=== PATIENT | female | born 1980 | race Caucasian/White ===

== ENCOUNTER 2020-01-13 09:10 | Emergency (ER) | payer MEDICAID, SELFPAY ==
[2020-01-13 09:11] VITALS: BP 124/61; PULSE 89; RESP 17; TEMP 36.3; O2SAT 98; BMI 26.1
--- NOTE | 2020-01-13 09:21 | RAD_ITS ---
STUDY: X-RAY CHEST REASON FOR EXAM: Female, 39 years old. COVID SX, COUGH, FEVER, LOSS OF TASTE AND SMELL TECHNIQUE: Single AP portable view of the chest. COMPARISON: None. FINDINGS: The lungs are clear and expanded. There is no demonstrated pleural abnormality. Normal size heart. Normal mediastinum and xenia. Normal visualized pulmonary arteries. Normal visualized aortic arch and descending thoracic aorta. Normal visualized thoracic spine. Normal visualized ribs, clavicles, and shoulders. There is no demonstrated abnormality of the visualized soft tissue structures of the upper abdomen. RAD/Chest 1 View (Portable) IMPRESSION: Normal x-ray examination of the chest. Electronically Signed: Todd Hanna MD at 9:55 EDT Tel , Service support ,
--- NOTE | 2020-01-13 10:09 | ED.VIS.GEN ---
History of Present Illness Chief Complaint: Cough Narrative: 39-year-old female presents with concern for cough, myalgias. States is been present for the past 1 week. Tested negative for coronavirus 2 days ago. Concerned because she continues to cough and has a change in her smell and taste. Patient is a current smoker. Denies any chest pain or shortness of breath. Past Medical History - Allergies and Home Meds Allergies/Adverse Reactions: Allergies No Known Allergies Allergy (Verified 01/13/20 09:11) Primary Care Physician: Bernie Harrell DO [Primary Care Provider] - Past Medical History: None Surgical History: no surgical history Lives: With Family Smoking Status: Current every day smoker Alcohol: None Drugs: None Review of Systems General: Reports: Malaise. Denies: Chills, Fever, Sweats Eyes: Denies: Visual changes - bilaterally, Diplopia ENT: Reports: Sore throat. Denies: Rhinorrhea Cardiovascular: Denies: Chest pain, Palpitations Respiratory: Reports: Cough. Denies: Dyspnea, Dyspnea on exertion Gastrointestinal: Denies: Abdominal pain, Nausea, Vomiting, Diarrhea, Melena, Hematochezia Genitourinary: Denies: Dysuria, Hematuria, Frequency Musculoskeletal: Denies: Back pain, Extremity Pain Skin: Denies: Rash, Wounds Neurological: Denies: Headache, Weakness, Numbness Physical Exam Vital Signs/Narrative: Vital Signs Temp Pulse Resp BP Pulse Ox 01/13/20 09:11 97.4 F L 89 17 124/61 H 98 Inital Vital Signs reviewed: Yes General: Well nourished, Well developed, No Acute Distress Head: Normocephalic, Atraumatic Eyes: Perrl, EOMI ENT: Moist mucous membranes, No rhinorrhea Neck: Supple, Nontender Cardiovascular: Regular rate, Regular rhythm, No murmurs Respiratory: No distress, CTA bilaterally, Chest nontender Abdomen: Soft, Nontender, Nondistended, Normal bowel sounds Back: Nontender, Normal Inspection Extremities: Nontender, No edema Skin: Normal color, No rash Neurological: Alert, Oriented x3, Cranial nerves II-XII grossly intact, Normal Strength, Normal Sensation Psychological: Normal affect, Normal Mood Diagnostic/Tx/Re-eval Chest X-Ray - ED: 1 View, Normal Clinical Impression(s) from Imaging Studies Chest X-Ray 01/13/20 09:21 IMPRESSION: Normal x-ray examination of the chest. Electronically Signed: Todd Hanna MD at 9:55 EDT Tel , Service support , - Medical Decision Making Patient appears well and nontoxic. Vital signs within normal limits. Lungs clear. Chest x-ray negative. Patient already has albuterol inhaler at home and will be placed on prednisone given she likely has undiagnosed COPD and had some slight wheezing. Coronavirus will be retested. Patient has to self isolate at home. Asked to return for shortness of breath. Patient agreeable and discharged home in stable condition. Impression: 1. Bronchitis 2. Tobacco abuse 3. Possible COVID-19 pneumonitis ED Disposition - Plan for ED Patient: Disposition: Home or Assisted Living Instructions: ED REACTIVE AIRWAY DISEASE Adult Prescriptions: Prednisone [Deltasone] 40 mg PO DAILY #10 tab Prescription Printed Referrals: Bernie Harrell DO [Primary Care Provider] -
== END 2020-01-13 10:51 | disposition home or self-care (01) ==
LOC: ED 10:26
PROVIDERS: Emergency Provider Emergency Medicine
DX: J40 Bronchitis, not specified as acute or chronic (principal); F17.200 Nicotine dependence, unspecified, uncomplicated
CPT/HCPCS: 71045; 87635; 94799; 99282; U0003

== ENCOUNTER 2021-05-18 20:09 | Emergency (ER) | payer MEDICAID, SELFPAY ==
[2021-05-18 20:11] VITALS: BP 104/47; PULSE 88; RESP 16; TEMP 36.4; BMI 26.7
[2021-05-18 20:15] VITALS: BP 110/63; PULSE 88; RESP 18; TEMP 36.4; O2SAT 98
--- NOTE | 2021-05-18 20:24 | CT_ITS ---
EXAM: CT HEAD WITHOUT INTRAVENOUS CONTRAST CLINICAL INDICATION: trauma TECHNIQUE: Multiple axial images were obtained of the head without intravenous contrast. CTDIvol = ( 44.99 ) mGy, DLP = ( 779.24 ) mGycm This CT exam was performed using one or more of the following dose reduction techniques: automated exposure control, adjustment of the mA and/or kV according to patient size, and/or use of iterative reconstruction technique. This report was created using [employer] report generation technology. COMPARISON: None. FINDINGS: BRAIN AND EXTRA-AXIAL SPACES: Unremarkable. No intra- or extra-axial hemorrhage. No evidence of acute infarct. No intracranial mass or mass effect. There is preservation of the webster/white matter interface. Posterior fossa structures are unremarkable. Ventricles are appropriate for age. No hydrocephalus. Basal cisterns are patent. BONES/JOINTS: Unremarkable. No discrete lytic or blastic abnormalities. SINUSES: Mucous retention cyst involving the right maxillary sinus. MASTOID AIR CELLS: Unremarkable. Clear. ORBITS: Visualized globes, extraocular muscles, optic nerves and retrobulbar fat appear unremarkable. CT/Brain/Head without Contrast IMPRESSION: No acute findings in the head/brain. Electronically Signed: Cleve Clayton MD at 21:23 EST Tel , Service support ,
--- NOTE | 2021-05-18 20:24 | CT_ITS ---
EXAM: CT CERVICAL SPINE WITHOUT INTRAVENOUS CONTRAST CLINICAL INDICATION: trauma TECHNIQUE: Helically acquired images were obtained of the cervical spine without intravenous contrast. 2D reformatted images were reviewed. CTDIvol = ( 14.98 ) mGy, DLP = ( 395.59 ) mGycm This CT exam was performed using one or more of the following dose reduction techniques: automated exposure control, adjustment of the mA and/or kV according to patient size, and/or use of iterative reconstruction technique. This report was created using [employer] technology. COMPARISON: None. FINDINGS: VERTEBRAE: Unremarkable. No fracture. No traumatic subluxation. No discrete lytic or blastic abnormality. Normal alignment. Normal craniocervical junction and cervicothoracic junction. DISCS/SPINAL CANAL/NEURAL FORAMINA: Multilevel degenerative disc disease changes. No critical stenosis. SOFT TISSUES: Unremarkable. No prevertebral soft tissue swelling. LYMPH NODES: Unremarkable. No cervical adenopathy. LUNG APICES: Unremarkable as visualized. Clear. CT/Spine Cervical without Contras IMPRESSION: No acute or healing fracture or malalignment. Electronically Signed: Cleve Clayton MD at 21:25 EST Tel , Service support ,
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
[2021-05-18 21:59] VITALS: RESP 16
== END 2021-05-18 22:00 | disposition home or self-care (01) ==
PROVIDERS: Emergency Provider Emergency Medicine; Visit Provider Emergency Medicine
DX: S06.0X0A Concussion without loss of consciousness, initial encounter (principal); S16.1XXA Strain of muscle, fascia and tendon at neck level, initial encounter; F17.210 Nicotine dependence, cigarettes, uncomplicated; V49.9XXA Car occupant (driver) (passenger) injured in unspecified traffic accident, initial encounter
CPT/HCPCS: 70450; 72125; 99284

== ENCOUNTER 2022-05-02 14:57 | Emergency (ER) | payer MEDICAID, SELFPAY ==
[2022-05-02 14:58] VITALS: BP 109/67; PULSE 80; RESP 15; TEMP 36.4; O2SAT 98; BMI 25.1
--- NOTE | 2022-05-02 16:16 | EX.ED.UPPERE ---
HPI <SELVIN Palomo - Last Filed: 05/02/22 16:53> History of Present Illness Chief Complaint: Laceration Narrative Narrative: 41-year-old [id number] female presents with a left middle finger laceration. At work today she was using a outside laborer when it cut the tip of her finger. Bleeding is controlled with a bandage. No weakness numbness or tingling. Last tetanus unknown. PFSH <SELVIN Palomo - Last Filed: 05/02/22 16:53> [facility] Medical History Anxiety Depression Home Medications amoxicillin 500 mg capsule 500 mg PO Q8H 06/18/15 [History Last Taken Unknown] gabapentin 300 mg capsule 300 mg PO QHS 06/18/15 [History Last Taken Unknown] hydrocodone-acetaminophen 5-325mg 5mg-325mg 1 - 2 tab PO Q4H PRN PRN Pain ##12 06/18/15 [Rx Last Taken Unknown] meloxicam 15 mg tablet 15 mg PO DAILY 06/18/15 [History Last Taken Unknown] naproxen 500 mg tablet 500 mg PO BID PRN ##20 06/18/15 [Rx Last Taken Unknown] nitrofurantoin monohydrate/macrocrystals 100 mg capsule 100 mg PO Q12 ##14 06/18/15 [Rx Last Taken Unknown] prednisone 20 mg tablet 40 mg PO DAILY #10 tabs 01/13/20 [Rx Last Taken Unknown] Allergy/AdvReac Type Severity Reaction Status Date / Time No Known Allergies Allergy Verified 05/02/22 14:57 Social History (Updated 05/18/21 @ 20:[address] Krunal Dominguez, ) Smoking Status: Current every day smoker tobacco type: cigarettes substance use type: does not use ROS <SELVIN Palomo - Last Filed: 05/02/22 16:53> ROS ED ROS Narrative Constitutional: Negative for fever, chills, malaise. Eyes: Negative for visual change. ENT: Negative for rhinorrhea. CVS: Negative for palpitations, chest pain. Respiratory: Negative for shortness of breath, cough. GI: Negative for abdominal pain, nausea, vomiting. : Negative for dysuria, hematuria or frequency. Neuro: Negative for motor/sensory dysfunction. Skin: Positive for wound. Musc: Positive for finger pain, trauma. Heme: Negative for easy bruising, bleeding, lymphadenopathy. EXAM <SELVIN Palomo - Last Filed: 05/02/22 16:53> Physical Exam Narrative Exam Narrative: CONST: Patient sitting in no acute distress. EYES: Normal inspection. NECK: Normal inspection. RESP: No respiratory distress, CTAB. CVS: Regular rate and rhythm, no murmur, no gallop. SKIN: 2 cm skin avulsion of tip of left middle finger along the medial side to level of subcutaneous tissue, no tendon or bone involvement. EXTREMITIES: Normal appearance, full ROM left hand and digits, normal nail with no laceration or subungual hematoma, normal motor and sensory function in median ulnar and radial distributions. 2+ radial pulse and brisk cap refill in all digits. NEURO: Oriented x4. PSYCH: Normal affect. Const Vital Signs: 05/02/22 14:58 Temperature 97.6 F L Temperature Source Temporal Pulse Rate 80 Respiratory Rate 15 Blood Pressure 109/67 Blood Pressure Mean 81 Pulse Ox 98 Oxygen Delivery Method Room Air MDM <SELVIN Palomo - Last Filed: 05/02/22 16:53> [facility] Narrative Medical decision making narrative: Patient has a distal left middle finger skin avulsion. It is to the level of the subcutaneous tissue. With no tendon or bone involvement there is no indication for x-rays. No nail laceration or subungual hematoma. She has full range of motion and is neurovascularly intact. Wound was thoroughly cleansed with sterile saline and Surgicel foam and a compressive dressing was applied for hemostasis. Tetanus will be updated. Patient was counseled on wound care instructions and will follow up with Worker's Comp. She was discharged in stable condition. <Francisco Javier Mon MD - Last Filed: 05/02/22 19:31> [facility] Narrative Medical decision making narrative: Patient has a distal left middle finger skin avulsion. It is to the level of the subcutaneous tissue. With no tendon or bone involvement there is no indication for x-rays. No nail laceration or subungual hematoma. She has full range of motion and is neurovascularly intact. Wound was thoroughly cleansed with sterile saline and Surgicel foam and a compressive dressing was applied for hemostasis. Tetanus will be updated. Patient was counseled on wound care instructions and will follow up with Worker's Comp. She was discharged in stable condition. I have personally performed a face to face assessment of the patient and have reviewed the MAC Note. I performed a substantive portion of the visit including all aspects of the following. My alford findings include: History is laceration to middle finger of left hand, cut in outside laborer Exam is GCS 15. ABCs intact. Large skin avulsion to finger pad of left third digit. Medical Decision Making not amenable to suture repair. Gelfoam. Heal by secondary intent. Follow-up with [facility]. Other additions or changes: [None] Discharge Plan Triage Chief Complaint: Laceration ED Midlevel Provider: Adriana Kauffman ED Provider: Francisco Javier Mon Dx/Rx/DC Orders Clinical Impression: Avulsion of skin of finger Instructions: ED Skin Avulsion Prescriptions: No Action amoxicillin 500 MG capsule 500 mg PO Q8H meloxicam 15 MG tablet 15 mg PO DAILY gabapentin 300 MG capsule 300 mg PO QHS naproxen 500 MG tablet 500 mg PO BID PRN Qty: 20 0RF nitrofurantoin monohyd/m-cryst 100 MG capsule 100 mg PO Q12 Qty: 14 0RF hydrocodone-acetaminophen 1 TABLET tablet 1 - 2 tab PO Q4H PRN PRN (Reason: Pain) Qty: 12 0RF prednisone 20 MG tablet 40 mg PO DAILY Qty: 10 0RF Rx Instructions: With food Primary Care Provider: Bernie Harrell Referrals: Bernie Harrell, [Primary Care Provider] - [facility] [Non-Staff] - Activity Restrictions/Additional Instructions: Once the foam falls off on its own you can cover the healing area with Vaseline and a bandage. Please follow-up with occupational health. If bleeding reoccurs hold direct pressure for 15 minutes without letting go. Disposition Disposition: Home, Self Care Discharge Date/Time: 05/02/22 17:03
[2022-05-02] MEDS: Gelatin Sponge Absorbable 50cm (1) 1 EACH TOPICAL (16:53)
== END 2022-05-02 17:03 | disposition home or self-care (01) ==
LOC: ED 16:26
PROVIDERS: Emergency Provider Emergency Medicine; Visit Provider Emergency Medicine
DX: S61.213A Laceration without foreign body of left middle finger without damage to nail, initial encounter (principal); F17.210 Nicotine dependence, cigarettes, uncomplicated; X58.XXXA Exposure to other specified factors, initial encounter
CPT/HCPCS: 99282

== ENCOUNTER 2022-09-29 09:22 | Emergency (ER) | payer MEDICAID, SELFPAY ==
[2022-09-29 09:23] VITALS: BP 141/73; PULSE 95; RESP 18; TEMP 36.4; O2SAT 100; BMI 27.0
--- NOTE | 2022-09-29 09:39 | ED.VIS.FEGU ---
HPI HPI - Female History of Present Illness Chief Complaint: Vag Bleeding Informant: patient Narrative Narrative: 42-year-old female states for the past 5 days she has had vaginal bleeding with intercourse multiple times. No bleeding without intercourse. Her last normal menstrual cycle was around 2 weeks ago, she is usually irregular but has a cycle every month and this is unusual and has never happened. She tried to get into [employer] at her practice but they have no openings, she tried to switch to a new practice here at [facility] but no openings, so she came here. She denies any dyspareunia or associated abdominal or back pain. She does state however she has some dysuria whenever she urinates but no other urinary symptoms. No fevers or chills. PFSH [facility] Medical History Anxiety Depression Home Medications gabapentin 300 mg capsule 300 mg PO QHS 06/18/15 [History Last Taken Unknown] buspirone 10 mg tablet 10 mg PO BID 09/16/22 [History Last Taken Unknown] fluoxetine 40 mg capsule (Prozac) 40 mg PO QPM 09/16/22 [History Last Taken Unknown] nitrofurantoin monohydrate/macrocrystals 100 mg capsule 100 mg PO Q12 #10 CAPSULES 09/29/22 [Rx Last Taken Unknown] phenazopyridine 200 mg tablet (Pyridium) 200 mg PO BID PRN PRN Pain #10 tabs 09/29/22 [Rx Last Taken Unknown] Allergy/AdvReac Type Severity Reaction Status Date / Time No Known Allergies Allergy Verified 09/29/22 09:23 Family History Other Liver cancer Throat cancer Surgical History History of salpingectomy Social History Smoking Status: Current every day smoker tobacco type: cigarettes alcohol intake: never substance use type: does not use ROS ROS ED Constitutional Constitutional ED: Denies chills or fever(s) Eyes Eyes: Denies change in vision or diplopia ENT ENT ED: Reports nasal congestion and rhinorrhea; Denies sore throat Cardiovascular Cardiovascular: Denies chest pain or palpitations Respiratory/Chest Respiratory/Chest: Reports chest congestion and cough; Denies dyspnea or sputum Gastrointestinal Gastrointestinal: Denies abdominal pain, diarrhea, nausea or vomiting Genitourinary Genitourinary ED: Reports as per HPI and dysuria; Denies hematuria Musculoskeletal Musculoskeletal: Denies back pain or neck pain Integumentary Denies abscess or rash Neurologic Neurologic: Denies headache(s), paresthesias or weakness Psychiatric Psychiatric: Denies anxiety or suicidal thoughts EXAM Physical Exam Const Vital Signs: 09/29/22 09:23 Temperature 97.6 F L Temperature Source Temporal Pulse Rate 95 Respiratory Rate 18 Blood Pressure 141/73 H Blood Pressure Mean 95 Pulse Ox 100 Oxygen Delivery Method Room Air Positive well nourished and well developed General Appearance ED: well developed and NAD HEENT Reports moist mucous membranes normocephalic and atraumatic Eyes PERRL and EOMs intact bilaterally Neck full ROM and supple Resp normal respiratory effort and clear to auscultation bilaterally Cardio regular rate, regular rhythm and no murmurs GI non-distended GI Narrative: Very mild suprapubic tenderness no guarding or rebound otherwise benign abdomen Auscultation: normoactive bowel sounds Palpation: soft Narrative: External exam, performed with nurse graphic pre press trades worker: Normal, no lesions, no blood. Speculum exam: No lacerations or lesions, masses, no blood. However when I had the cervix within open speculum in view, a very small amount of blood suddenly emanated from the cervical os, which is otherwise normal appearing. Back/Spine no CVA tenderness General Back: other FROM Extremity normal to inspection General Extremety ED: Negative for edema, pulses abnormal or tenderness General Extremity: Negative for edema or pulses abnormal Neuro oriented x3, CN's II-XII intact bilaterally and no sensory deficits noted Sensorium / Orientation: awake and alert Motor Exam: strength 5/5 throughout Skin no rashes or lesions noted and no wounds MDM MDM MDM Narrative Medical decision making narrative: Given the pelvic exam, initially obtained urinalysis showed negative test, patient did have a bilateral tubal ligation but this helps to rule out an ectopic, so she was sent for transvaginal ultrasound. I reviewed those images and the results, basically unremarkable just showing thickened endometrium which is very nonspecific. No ovarian abnormalities. The urinalysis does show signs of infection. Her dysuria I think is separate from the dysfunctional uterine bleeding. I recommend antibiotics, Pyridium for the symptoms of dysuria, and follow-up with her [employer]ORATORY TECHNICIAN. She is comfortable with that plan. Lab Data Attestation: I reviewed the patient's lab results. Labs: Laboratory Results - last 24 hr 09/29/22 10:12 Urine Color Yellow Urine Clarity Sl. Cloudy Urine pH 5.0 Ur Specific Jal 1.025 Urine Protein 30 H Urine Glucose (UA) Normal Urine Ketones 5 H Urine Occult Blood 250 H Urine Nitrite Negative Urine Bilirubin Negative Urine Urobilinogen Normal Ur Leukocyte Esterase 500 H Urine RBC 25-50 SEEN Urine WBC 25-50 SEEN Ur Squamous Epith Cells 5-10 SEEN Urine Bacteria 1+ Urine Mucus 1+ Urine Test Negative Radiography Diagnostic Testing: Clinical Impression(s) from Imaging Studies Transvaginal US 09/29/22 10:38 IMPRESSION: Thickened endometrium. Abdominal follicle in the left ovary. Electronically Signed: Noe Jean MD at 11:57 EDT , My interpretation of the US agrees with that of the radiologist. Discharge Plan Triage Chief Complaint: Vag Bleeding ED Provider: Cl Tello Dx/Rx/DC Orders Clinical Impression: Acute cystitis, DUB (dysfunctional uterine bleeding) Instructions: ED Dysfunctional Uterine Bleeding, ED Cystitis Female Adult Prescriptions: New phenazopyridine [Pyridium] 200 mg tablet 200 mg PO BID PRN PRN (Reason: Pain) Qty: 10 0RF nitrofurantoin monohyd/m-cryst [nitrofurantoin monohyd/m-cryst] 100 mg capsule 100 mg PO Q12 Qty: 10 0RF No Action fluoxetine [Prozac] 40 mg capsule 40 mg PO QPM buspirone 10 mg tablet 10 mg PO BID gabapentin 300 MG capsule 300 mg PO QHS Primary Care Provider: Meagan Meléndez [employer] Referrals: Shila Kenney MD [Med Staff - Courtesy Staff] - 3-5 Days if not improving Bernie Harrell DO [Non-Staff] - Disposition Disposition: Home, Self Care
[2022-09-29 10:18] LABS: Color, Urine Yellow (Yellow); Glucose, Dipstick Normal (Normal); Ketone-Dipstick 5 mg/dl (Negative); Leukocyte Esterase-Dipstick 500 /ul (Negative); Nitrite-Dipstick Negative (Negative); Occult Blood-Urine 250 /ul (Negative); Protein-Dipstick 30 mg/dl (Negative); Specific Gravity, Urine 1.025 (1.002-1.030); Urine Bilirubin Dipstick Negative (Negative); Urine Clarity Sl. Cloudy (Clear); Urine Urobilinogen Normal (Normal)
[2022-09-29 10:38] LABS: Bacteria 1+ /hpf (None Seen); Mucous, Urine 1+ /hpf (<or=2+); Red Blood Cells-Urine 25-50 SEEN /hpf (0-5); Squamous Epithelial Cells - UA 5-10 SEEN /hpf (5-10); White Blood Cells 25-50 SEEN /hpf (0-5)
--- NOTE | 2022-09-29 10:38 | US_ITS ---
STUDY: ULTRASOUND OF THE FEMALE PELVIS - COMPLETE REASON FOR EXAM: Female, 42 years old. Dysfunctional uterine bleeding LMP: September 13, 2022. TECHNIQUE: Transvaginal TECHNICAL QUALITY: Adequate. COMPARISON: None. FINDINGS: The uterus is anteverted and is in a midline position. The uterus measures 10.3 cm x 6.5 cm x 4.7 cm. Normal uterine cervix. The endometrium is thickened and measures 17 mm in thickness, and is hyperechoic. There is no demonstrated endometrial mass. There is no demonstrated myometrial mass. I.U.D. - The patient does not have an I.U.D. The right ovary is visualized. The right ovary measures 2.7 cm x 3.7 cm x 2.6 cm. There is no right ovarian cyst or ovarian mass. There is no visualized right adnexal mass or complex lesion. There is normal arterial and normal venous vascularity. The left ovary is visualized. The left ovary measures 2.3 cm x 2.6 x 1.3 cm. Dominant follicle measuring 1.4 cm x 1.4 cm x 1.3 cm. There is no visualized left adnexal mass or complex lesion. There is normal arterial and normal venous vascularity. There is no fluid in the cul-de-sac. US/Transvaginal Non- IMPRESSION: Thickened endometrium. Abdominal follicle in the left ovary. Electronically Signed: Noe Jean MD at 11:57 EDT ,
[2022-09-29 10:39] LABS: Internal QC Validated? YES +Cl - CLEAR BKGD; Pregnancy, Urine Negative Negative
--- NOTE | 2022-09-29 10:57 | CM.ED ---
Social Work Note Referral Source: case find Referral Reason: no PCP SW met with patient and patient's guest and introduced herself and role as [facility] Visor Installer. Patient was lying on hospital bed and agreeable to speak with SW with guest present. SW inquired about patient's insurance and current PCP. Patient verified insurance and reports working with MD Pfeiffer at [facility]. Patient declined a list of local PCPs in network with patient's insurance and accepting new patients. Patient voiced no other needs at this time. SW remains available if needs arise. Breana Morrissey [employer]ARLAND MAKER, JAYLEN
[2022-09-29 13:15] VITALS: RESP 18
== END 2022-09-29 13:16 | disposition home or self-care (01) ==
PROVIDERS: Emergency Provider Emergency Medicine; Visit Provider Emergency Medicine
DX: N30.00 Acute cystitis without hematuria (principal); N93.8 Other specified abnormal uterine and vaginal bleeding; F17.210 Nicotine dependence, cigarettes, uncomplicated
CPT/HCPCS: 76830; 81001; 81025; 99282

== ENCOUNTER → 2022-10-25 | Outpatient (CLI) | payer MEDICAID, SELFPAY ==
[2022-10-25 18:14] LABS: Bacteria 0 SEEN /hpf (None Seen); Mucous, Urine 0 SEEN /hpf (<or=2+)
[2022-10-25 18:40] LABS: Color, Urine Yellow (Yellow); Glucose, Dipstick Normal (Normal); Ketone-Dipstick Negative (Negative); Leukocyte Esterase-Dipstick Negative /ul (Negative); Nitrite-Dipstick Negative (Negative); Occult Blood-Urine 25 /ul (Negative); Protein-Dipstick Negative (Negative); Urine Bilirubin Dipstick Negative (Negative); Urine Clarity Sl. Cloudy (Clear); Urine Urobilinogen Normal (Normal)
[2022-10-25 18:48] LABS: Squamous Epithelial Cells - UA 0-5 SEEN /hpf (5-10); White Blood Cells 0-5 SEEN /hpf (0-5)
[2022-10-25 18:49] LABS: Amorphous Sediment 1+; Red Blood Cells-Urine 0-5 SEEN /hpf (0-5)
== END | disposition home or self-care (01) ==
PROVIDERS: Visit Provider Physician Assistant Surgical
DX: R30.0 Dysuria (principal)
CPT/HCPCS: 81001; 87086; 87088

== ENCOUNTER → 2023-06-14 | Outpatient (CLI) | payer MEDICAID, SELFPAY ==
--- OUTSIDE RECORDS SUMMARY | 2023-06-14 12:21 | XMS RPT_ITS | CCD ---
Author Name Unknown Address [address] [place] [address] Organization [facility] Care Team Providers Care Vocal Teacher Name Role Phone Meagan Meléndez APRN.CNP Primary Care Provider DEBBIE ANDRES, DR WILKINS Primary Care Physician [phone] CHRISTOPHER VARGAS MD Attending Unavailable DEBBIE ANDRES, DR WILKINS Primary Care Unavailable CHRISTOPHER VARGAS MD Attending Unavailable DEBBIE ANDRES, DR WILKINS Primary Care Unavailable CHRISTOPHER VARGAS MD Attending Unavailable DEBBIE ANDRES, DR WILKINS Primary Care Unavailable CHRISTOPHER VARGAS MD Consulting Unavailable MEAGAN MELÉNDEZ Referring Unavailable MEAGAN MELÉNDEZ Primary Care Unavailable MEAGAN MELÉNDEZ Primary Care Unavailable MEAGAN MELÉNDEZ Referring Unavailable MEAGAN MELÉNDEZ Attending Unavailable MEAGAN MELÉNDEZ Attending Unavailable MEAGAN MELÉNDEZ Primary Care Unavailable MEAGAN MELÉNDEZ Referring Unavailable MEAGAN MELÉNDEZ Primary Care Unavailable MEAGAN MELÉNDEZ Attending Unavailable MEAGAN MELÉNDEZ Primary Care Unavailable Medications Current Medications Medication Drug Class(es) Dates Sig (Normalized) Sig (Original) azithromycin 250 mg oral tablet (1 source) Macrolide Antimicrobial Start: 10-18-2022 End: 10-19-2022 azithromycin 250 mg oral tablet Dose : 1,000 mg = 4 tab(s), Oral, qDay, X 1 day(s), # 4 tab(s), 0 Refill(s), 10/19/22 13:43:00 EDT, Pharmacy: [facility] #[id number], 164, cm, 10/14/22 8:53:00 EDT, Height, 72.9 Start Date: 10/18/22 Stop Date: 10/19/22 Status: Ordered busPIRone hydrochloride 10 mg oral tablet (9 sources) Start: 09-13-2022 End: 09-13-2022 take 1 tablet by mouth twice daily busPIRone 10 mg oral tablet take 1 tablet by mouth twice a day Start Date: 10/07/22 Status: Ordered Completed/Discontinued Medications Medication Drug Class(es) Dates Sig (Normalized) Sig (Original) [id number] 200 actuat albuterol 0.09 mg/actuat metered dose inhaler (1 source) beta2-Adrenergic Agonist Start: 03-07-2021 End: 09-13-2022 take 2 puff(s) by inhalation every four hours as needed for wheezing albuterol HFA (PROVENTIL HFA, VENTOLIN HFA) 90 mcg/actuation inhaler Indications: URI with cough and congestion Inhale 2 Puffs as instructed every 4 hours as needed for wheezing/shortness of breath. 1 Each 1 03/07/2021 09/13/2022 Discontinued Problems Active Problems Problem Classification Problem Date Documented Date Episodic/Chronic Anxiety disorders (5 sources) Generalized anxiety disorder; Translations: [Moderate anxiety] Onset: 03-17-2023 06-30-2021 Chronic Diseases of white blood cells (1 source) Leukocytosis; Translations: [Elevated white blood cell count, unspecified] Chronic Endometriosis (3 sources) Endometriosis (clinical) 05-29-2020 Chronic Esophageal disorders (3 sources) Gastroesophageal reflux disease without esophagitis 01-25-2019 Chronic Immunizations and screening for infectious disease (2 sources) Encounter for screening for infections with a predominantly sexual mode of transmission; Translations: [Encounter for screening for infections with a predominantly sexual mode of transmission] Onset: 10-14-2022 Episodic Mood disorders (10 sources) Depressive disorder; Translations: [Other specified depressive episodes] Onset: 12-26-2013 Chronic Other female genital disorders (3 sources) Postcoital bleeding 10-07-2022 Chronic Other nervous system disorders (3 sources) Paresthesia of lower extremity 01-25-2019 Episodic Other non-traumatic joint disorders (1 source) Pain in left knee; Translations: [Acute pain of left knee] Onset: 01-24-2023 Episodic Other skin disorders (1 source) Generalized hyperhidrosis; Translations: [Night sweats] Onset: 03-17-2023 Episodic Other upper respiratory disease (3 sources) Allergic rhinitis 07-19-2019 Chronic Residual codes; unclassified (3 sources) Chronic back pain 12-19-2015 Episodic Sexually transmitted infections (not HIV or hepatitis) (1 source) Chlamydial cervicitis 10-25-2022 Episodic Spondylosis; intervertebral disc disorders; other back problems (5 sources) Degeneration of lumbar intervertebral disc; Translations: [Other intervertebral disc degeneration, lumbar region] Onset: 06-19-2014 06-19-2014 Chronic Spondylosis; intervertebral disc disorders; other back problems (12 sources) Lumbar radiculopathy; Translations: [Radiculopathy, lumbar region] Onset: 06-19-2014 Episodic Past or Other Problems Problem Classification Problem Date Documented Da te Episodic/Chronic Other connective tissue disease (5 sources) Pain in lower limb; Translations: [Pain in leg, unspecified] Onset: 08-31-2011 08-31-2011 Episodic Other screening for suspected conditions (not mental disorders or infectious disease) (7 sources) Patient encounter status; Translations: [Encounter for screening for diabetes mellitus] Onset: 09-13-2022 Episodic Residual codes; unclassified (8 sources) Tobacco user; Translations: [Tobacco use] Onset: 12-26-2013 12-26-2013 Episodic Screening and history of mental health and substance abuse codes (5 sources) Tobacco use and exposure - finding; Translations: [Personal history of nicotine dependence] Onset: 06-28-2011 06-28-2011 Episodic Results Test Name Value Interpretation Reference Range Facil ity Vital Signs Date Time Vital Sign Value Performing Clinician Ceciliai jelani 09-13-2022 15:48-0400 Body height 162.6 cm Meagan Meléndez APRN.CNP Work Phone: [facility] 09-13-2022 15:48-0400 Body weight 73.48 kg Meagan Meléndez APRN.CNP Work Phone: [facility] 09-13-2022 15:48-0400 Diastolic blood pressure 66 mm[Hg] Meagan Meléndez APRN.CNP Work Phone: [facility] 09-13-2022 15:48-0400 Heart rate 84 /min Meagan Meléndez APRN.CNP Work Phone: [facility] 09-13-2022 15:48-0400 Respiratory rate 14 /min Meagan Meléndez PLASTIC AND RECONSTRUCTIVE SURGEON.CUPOLA MAN Work Phone: [facility] 09-13-2022 15:48-0400 Systolic blood pressure 108 mm[Hg] Meagan Meléndez PLASTIC AND RECONSTRUCTIVE SURGEON.CUPOLA MAN Work Phone: [facility] Encounters Encounter Date Encounter Type Care Provider Facility Start: 03-17-2023 End: 03-18-2023 ambulatory MEAGAN MELÉNDEZ Facility:[facility] Start: 01-24-2023 End: 01-25-2023 ambulatory MEAGAN MELÉNDEZ Facility:[facility] Start: 11-03-2022 Refill Meagan Snyder e PLASTIC AND RECONSTRUCTIVE SURGEON.CUPOLA MAN Work Phone: [facility] Procedures Date Procedure Procedure Detail Performing Clinician Start: 09-14-2022 Mammography Madeline ferguson PA-C Work Phone: Start: 01-15-2016 Laparoscopic sterilization CHRISTOPHER VARGAS MD Start: 05-16-2006 Cholecystectomy CHRISTOPHER BALBUENA MD Plan of Treatment Date Care Activity Detail Author Start: 05-16-2027 HPV TESTING HPV TESTING [facility] Start: 05-16-2027 PAP TESTING PAP TESTING [facility] Start: 09-15-2023 Mammography MAMMOGRAM [facility] Start: 09-14-2023 COVID-19 VACCINE (4 - Booster for Moderna series) COVID-19 VACCINE (4 - Booster for Moderna series) [facility] Immunizations Immunization Date Immunization Notes Care Provider Fa bertha 02-18-2022 tetanus toxoid, redu demetri diphtheria toxoid, and acellular pertussis vaccine, adsorbed; Translations: [Boostrix (Tdap)] CHRISTOPHER VARGAS MD [facility] 12-11-2021 SARS-CoV-2 (COVID-19 ) mRNA-1273 vaccine CHRISTOPHER VARGAS MD [facility] 10-30-2020 SARS-CoV-2 (COVID-19 ) mRNA-1273 vaccine CHRISTOPHER VARGAS MD [facility] 10-02-2020 SARS-CoV-2 (COVID-19 ) mRNA-1273 vaccine CHRISTOPHER VARGAS MD [facility] 01-08-2012 measles, mumps and rubella virus vaccine Meagan Meléndez APRN.CUPOLA MAN Work Phone: [facility] Payers Date Payer Category Payer Medicaid [employer] [id number] 2022-Present [phone] [address] [place] [address] Medicaid [id number] 2022 Unknown [id number] 2022 Unknown [id number] 1978 Unknown [id number] 1978 Unknown [id number] 1978 Unknown [id number] Social History Date Type Detail Facility Start: 01-28-2014 [facility] Work Phone: History of tobacco use Cigarette Smoker [facility] Work Phone: Start: 01-28-2014 Cigarettes smoked current (pack per day) - Reported 0.5 [facility] Start: 01-28-2014 Tobacco use and exposure Smokeless tobacco non-user [facility] Work Phone: Start: 09-13-2022 Alcohol intake Current drinke r of alcohol (finding) [facility] Start: 01-28-2014 Alcohol Comment rare [facility] Start: 1980 Sex Assigned At Not on file [facility] Start: 10-07-2022 Tobacco smoking status Light t obacco smoker (finding) [facility] Sex Assigned At Female [facility] Clinical Notes 07-26-2011 to 03-17-2023 Telephone Encounter - Taina Barker MD - 11/03/2022 10:27 PM EDTTelephone Encounter - Lulubebeto Esteves Pss - 11/03/2022 12:04 PM EDTTelephone Encounter - BOOKER Daley - 09/20/2022 10:48 AM EDT Note Date & Type Note Facility 03-17-2023 Note HNO ID: [id number] Author: Meagan Meléndez APRN.CUPOLA MAN Service: ? Author Type: Nurse Practitioner Type: Progress Notes Filed: 03/17/2023 9:34 AM Note Text: Chief Complaint Patient presents with: 6 Month Exam HPI Joanne Blackwood is a 42 year old female who presents here today for Above Complaints.. Pt states she recently talked with JACKHAMMER SPLITTER OPERATOR about night sweats- was dx with premenopausal- prescribed clonidine and taking black cohosh for night sweats which has lessened to a couple times a week. Prescribed trazodone by psych for difficulty sleeping- which has improved. Back pain: well controlled Depression: well controlled with prozac Past medical history, appointments, medications, allergies reviewed. Previous Medical History PAST MEDICAL HISTORY Diagnosis Date Abdominal pain, right upper quadrant Dysthymic disorder Depression (non-psychotic) Low iron Lumbosacral radiculopathy at L4 02/2014 Migraine without aura Nonspecific elevation of levels of transaminase or lactic acid dehydrogenase (LDH) Scoliosis Previous Surgical History PAST SURGICAL HISTORY Procedure Laterality Date LAPS SURG CHOLECYSTECTOMY W/CHOLANGIOGRAPHY 12/15/2007 ? abnormal CBD LIGATE FALLOPIAN TUBE Bilateral 2015 PAST SURGICAL HISTORY OF dental extraction Family History FAMILY HISTORY Problem Relation Age of Onset Alcohol/Drug Mother Alcohol/Drug Father Cancer Mother LIVER CANCER Cancer Father ESOPHAGEAL CANCER Cancer Maternal Grandmother LIVER CANCER Cancer Paternal Uncle LUNG CANCER Diabetes Paternal Grandmother Emphysema Mother Seizures Maternal Grandfather Patient Allergies ALLERGIES No Known Allergies Current Medications Current Outpatient Medications on File Prior to Visit Medication Sig FLUoxetine (PROZAC) 20 mg capsule Take 1 capsule by mouth once daily. gabapentin (NEURONTIN) 100 mg capsule Take 100 mg by mouth every other day. busPIRone (BUSPAR) 10 mg tablet Take 1 tablet by mouth twice daily. Cholecalciferol, Vitamin D3, 2,000 unit cap Take 1 capsule by mouth daily at bedtime. L.ACID/L.CASEI/B.BIF/B.KAVYA/FOS (PROBIOTIC BLEND ORAL) Take 1 capsule by mouth once daily. No current facility-administered medications on file prior to visit. Social History Social History Tobacco Use Smoking status: Every Day Packs/day: 0.50 Years: 20.00 Additional pack years: 0.00 Total pack years: 10.00 Types: Cigarettes Smokeless tobacco: Never Vaping Use Vaping Use: current everyday user Substances: Nicotine, Flavoring Devices: Disposable Substance Use Topics Alcohol use: Yes Comment: rare Drug use: Not Currently Types: Marijuana Review of Symptoms REVIEW OF SYSTEMS SEE HPI EXAM: BP (!) 112/4 Pulse 80 Resp 14 Wt 75.8 kg (167 lb) LMP 08/15/2018 BMI 28.67 kg/m? General Appearance: Well appearing, alert, in no acute distress, well-hydrated, well nourished.. Lungs: Lungs clear to auscultation. No wheezing, rhonchi, rales.. Heart: RRR without murmur, gallop, or rubs. No ectopy. Neurologic: Gait normal. Reflexes normal and symmetric. Sensation grossly intact.. Health Maintenance List Hepatitis C Screening Never done Influenza Vaccine(1) Never done Covid-19 Vaccine(4 - 2022- season) due on 01/14/2023 Pneumococcal Vaccine(1 - PCV) due on 09/14/2023 Mammogram Screening due on 09/15/2023 Pap Testing due on 05/16/2027 HPV Testing due on 05/16/2027 DTaP,Tdap,Td Vaccine(2 - Td or Tdap) due on 02/19/2032 HIV Screening Completed HPV Vaccine Aged Out Hepatitis B Vaccine Discontinued ASSESSMENT/PLAN: 1. Lumbar radiculopathy - ICD9: 724.4, ICD10: M54.16 (primary diagnosis) -Chronic low back pain - GABAPENTIN 100 MG CAPSULE 2. Night sweats - ICD9: 780.8, ICD10: R61 -Continue clonidine and black cohosh 3. Moderate anxiety - ICD9: 300.00, ICD10: F41.9 -Continue prozac -Continue follow up with psych Meagan Meléndez APRN.CUPOLA MAN I have personally seen and examined the patient and performed the medical-decision making components. I have reviewed the Advanced Practice Registered Nurse (PLASTIC AND RECONSTRUCTIVE SURGEON) student's documentation and verified the findings in the note as written. Any additions or changes are noted in bold/italics. Meagan Meléndez APRN.[facility] 01-24-2023 Note HNO ID: [id number] Author: Emely Oliva RT(R) Service: Radiology Author Type: Technologist Type: Progress Notes Filed: 01/24/2023 2:22 PM Note Text: Radiology Service Progress Note PATIENT NAME: Joanne Blackwood DATE OF SERVICE: January 24, 2023 TIME: 2:07 PM PATIENT IDENTITY VERIFICATION COMPLETED USING TWO (2) IDENTIFIERS: Name and Date of confirmed by patient verbally. FALL SCREENING: Has the patient had 2 falls in the last year or 1 fall with injury or currently using an Ambulatory Assistive Device (Walker, Cane, Wheelchair, Crutches, etc.)? No PATIENT GENDER DATA: Female. status: : No status: NO. PATIENT RELEVANT IMPLANT DATA REVIEWED: Yes RADIOLOGY DEPARTMENT: General X-ray: Exam(s) Completed: Chest X-Ray Lower Extremity X-Ray(s): Knee, AP / Lat / Tunne / Merchant Left and Wt. Bearing PERIPHERAL IV DATA: Not applicable SIGNED BY: RT Kate(R) January 24, 2023 2:07 PM [facility] 01-24-2023 Note HNO ID: [id number] Author: Meagan Meléndez APRN.CUPOLA MAN Service: ? Author Type: Nurse Practitioner Type: Progress Notes Filed: 01/24/2023 2:00 PM Note Text: Chief Complaint Patient presents with: Night Sweats HPI Joanne Blackwood is a 42 year old female who presents here today for Above Complaints.. Patient presents for night sweats and difficulty sleeping. Patient reports her night sweats are gradually getting worse and difficulty staying asleep. Patient started on trazodone per psych which has been helpful. Patient reports she is still having periods however her periods are irregular. Patient also reports left knee pain and swelling. Patient reports her knee also pops and cracks. Past medical history, appointments, medications, allergies reviewed. Previous Medical History PAST MEDICAL HISTORY Diagnosis Date Abdominal pain, right upper quadrant Dysthymic disorder Depression (non-psychotic) Low iron Lumbosacral radiculopathy at L4 02/2014 Migraine without aura Nonspecific elevation of levels of transaminase or lactic acid dehydrogenase (LDH) Scoliosis Previous Surgical History PAST SURGICAL HISTORY Procedure Laterality Date LAPS SURG CHOLECYSTECTOMY W/CHOLANGIOGRAPHY 12/15/2007 ? abnormal CBD LIGATE FALLOPIAN TUBE Bilateral 2015 PAST SURGICAL HISTORY OF dental extraction Family History FAMILY HISTORY Problem Relation Age of Onset Alcohol/Drug Mother Alcohol/Drug Father Cancer Mother LIVER CANCER Cancer Father ESOPHAGEAL CANCER Cancer Maternal Grandmother LIVER CANCER Cancer Paternal Uncle LUNG CANCER Diabetes Paternal Grandmother Emphysema Mother Seizures Maternal Grandfather Patient Allergies ALLERGIES No Known Allergies Current Medications Current Outpatient Medications on File Prior to Visit Medication Sig FLUoxetine (PROZAC) 20 mg capsule Take 1 capsule by mouth once daily. gabapentin (NEURONTIN) 100 mg capsule Take 100 mg by mouth every other day. busPIRone (BUSPAR) 10 mg tablet Take 1 tablet by mouth twice daily. ibuprofen (MOTRIN) 600 mg tablet Take 1 tablet by mouth every 6 hours as needed for Pain. meloxicam (MOBIC) 15 mg tablet Take 1 tablet by mouth once daily. Take with food. (Patient not taking: Reported on 09/12/2018 ) lidocaine viscous (LIDOCAINE VISCOUS) 2 % solution Take 5 mL by mouth as needed for Pain. (Patient not taking: Reported on 09/12/2018 ) cetirizine-pseudoephedrine (ZYRTEC-D) 5-120 mg per tablet Take 1 tablet by mouth twice daily. Cholecalciferol, Vitamin D3, 2,000 unit cap Take 1 capsule by mouth daily at bedtime. L.ACID/L.CASEI/B.BIF/B.KAVYA/FOS (PROBIOTIC BLEND ORAL) Take 1 capsule by mouth once daily. No current facility-administered medications on file prior to visit. Social History Social History Tobacco Use Smoking status: Every Day Packs/day: 0.50 Years: 20.00 Additional pack years: 0.00 Total pack years: 10.00 Types: Cigarettes Smokeless tobacco: Never Vaping Use Vaping Use: current everyday user Substances: Nicotine, Flavoring Devices: Disposable Substance Use Topics Alcohol use: Yes Comment: rare Drug use: Not Currently Types: Marijuana Review of Symptoms REVIEW OF SYSTEMS SEE HPI EXAM: BP 102/66 Pulse 82 Resp 14 Wt 73.9 kg (163 lb) LMP 08/15/2018 BMI 27.98 kg/m? PHYSICAL EXAMINATION: General appearance: Well appearing, alert, in no acute distress, well-hydrated, well nourished. Musculoskeletal: Positive findings: joint location: on left knee stiffness Health Maintenance List HEPATITIS C SCREENING Never done INFLUENZA(1) due on 01/14/2023 DTAP,TDAP,TD(1 - Tdap) due on 09/14/2023 COVID-19 VACCINE(4 - Moderna series) due on 09/14/2023 PNEUMOCOCCAL(1 - PCV) due on 09/14/2023 MAMMOGRAM due on 09/15/2023 PAP TESTING due on 05/16/2027 HPV TESTING due on 05/16/2027 HIV SCREENING Completed HPV VACCINE Aged Out HEPATITIS B Discontinued ASSESSMENT/PLAN: 1. Night sweats - ICD9: 780.8, ICD10: R61 (primary diagnosis) - XR CHEST 2V FRONTAL/LAT -Instructed patient to follow up with JACKHAMMER SPLITTER OPERATOR for further evaluation of hormonal causes 2. Acute pain of left knee - ICD9: 719.46, ICD10: M25.562 - XR KNEE GENERAL 4V AP BOTH/PA BOTH/LAT/MERC LEFT Meagan Meléndez APRN.[facility] 11-03-2022 Miscellaneous Notes The following approved medication requests have been transmitted electronically. Requested Prescriptions Signed Prescriptions Disp Refills FLUoxetine (PROZAC) 20 mg capsule 30 capsule 3 Sig: Take 1 capsule by mouth once daily. Authorizing Provider: TAINA BARKER MD Patient has been identified by name and date of : Yes Last office visit in this department: 09/13/2022 RX INSTRUCTIONS: Patient aware RX will be sent to pharmacy. No need to notify patient. Patient phones requesting refills as follows: Requested Prescriptions Pending Prescriptions Disp Refills FLUoxetine (PROZAC) 20 mg capsule 30 capsule 3 Sig: Take 1 capsule by mouth once daily. Please review and advise. Lulu Escobar documented in this encounter [facility] 09-23-2022 Miscellaneous Notes Patient calls and notified of results and providers instructions. Patient verbalizes understanding. Patient called from the [phone] number. No phone number update at this time. Keisha Parsons RN TC to patient but line beeps and says the number you reached has been disconnected . Patient has not logged in to since 2011 and therefore can not send message. Letter printed and mailed to patients address informing to contact office for recent lab results. BOOKER Daley Call placed to patient with no answer. Message left for patient to return call and ask to speak to a triage nurse to receive provider message. Keisha Parsons RN Please let patient know her triglycerides are high and she should decrease the amount of processed foods she eats. Patient also has elevated WBC which could be from inflammation with her current back problems. I would like her to recheck her CBC in a month. The order is placed and she may do this at her convenience. documented in this encounter [facility] 09-15-2022 Miscellaneous Notes Pt notified of same. Rashard Lombardo LPN ----- Message from Madeline Triplett PA-C sent at 09/15/2022 11:33 AM EDT ----- Normal mammogram. Repeat in 1 year. documented in this encounter [facility] 09-15-2022 Miscellaneous Notes September 15, 2022 PID: [id number] Joanne Blackwood [address] [place] [address] Dear Ms. Blackwood, We are pleased to inform you that the results of your recent breast imaging exam on 09/14/2022 are normal. Your mammogram demonstrates that you have dense breast tissue, which could hide abnormalities. Dense breast tissue, in and of itself, is a relatively common condition. Therefore, this information is not provided to cause undue concern; rather, it is to raise your awareness and promote discussion with your health care provider regarding the presence of dense breast tissue in addition to other risk factors. Early detection of cancer is very important. We also understand recommendations regarding breast cancer screening are controversial. Please discuss with your primary care provider which strategy is best for you and whether a mammogram is right for you. Your imaging studies and report will be kept on file at [facility] as part of your permanent medical record and are available for your continuing care. Thank you for allowing us to help in meeting your health care needs. Sincerely, Dr. Medrano Interpreting Radiologist [facility] (Normal over 40) documented in this encounter [facility] 09-14-2022 Note HNO ID: [id number] Author: Perla Bains RT(R) Service: ? Author Type: Technologist Type: Progress Notes Filed: 09/14/2022 8:45 AM Note Text: Radiology Service Progress Note PATIENT NAME: Joanne Blackwodo DATE OF SERVICE: September 14, 2022 TIME: 8:44 AM PATIENT IDENTITY VERIFICATION COMPLETED USING TWO (2) IDENTIFIERS: Name and Date of confirmed by patient verbally. FALL SCREENING: Has the patient had 2 falls in the last year or 1 fall with injury or currently using an Ambulatory Assistive Device (Walker, Cane, Wheelchair, Crutches, etc.)? No PATIENT GENDER DATA: Female. status: : No status: NO. PATIENT RELEVANT IMPLANT DATA REVIEWED: Not Applicable RADIOLOGY DEPARTMENT: Mammography PERIPHERAL IV DATA: Not applicable SIGNED BY: RT Bernard(R) September 14, 2022 8:44 AM [facility] 09-13-2022 Note HNO ID: [id number] Author: Meagan Meléndez APRN.CUPOLA MAN Service: ? Author Type: Nurse Practitioner Type: Progress Notes Filed: 09/13/2022 4:16 PM Note Text: Chief Complaint No chief complaint on file. HPI Joanne Blackwood is a 42 year old female who presents here today for Above Complaints.. Patient presents to [facility]. Patient reports that she follows with neurology for difficulty with her lower back. Patient states she feels that this has worsened and she has been told in the past she has lower back problems. Patient reports history of depression, anxiety and radiculopathy. Past medical history, appointments, medications, allergies reviewed. Previous Medical History PAST MEDICAL HISTORY Diagnosis Date Abdominal pain, right upper quadrant Dysthymic disorder Depression (non-psychotic) Low iron Lumbosacral radiculopathy at L4 02/2014 Migraine without aura Nonspecific elevation of levels of transaminase or lactic acid dehydrogenase (LDH) Scoliosis Previous Surgical History PAST SURGICAL HISTORY Procedure Laterality Date LAPS SURG CHOLECYSTECTOMY W/CHOLANGIOGRAPHY 12/15/2007 ? abnormal CBD PAST SURGICAL HISTORY OF dental extraction Family History FAMILY HISTORY Problem Relation Age of Onset Alcohol/Drug Mother Alcohol/Drug Father Cancer Mother LIVER CANCER Cancer Father ESOPHAGEAL CANCER Cancer Maternal Grandmother LIVER CANCER Cancer Paternal Uncle LUNG CANCER Diabetes Paternal Grandmother Emphysema Mother Seizures Maternal Grandfather Patient Allergies ALLERGIES No Known Allergies Current Medications Current Outpatient Medications on File Prior to Visit Medication Sig albuterol HFA (PROVENTIL HFA, VENTOLIN HFA) 90 mcg/actuation inhaler Inhale 2 Puffs as instructed every 4 hours as needed for wheezing/shortness of breath. ibuprofen (MOTRIN) 600 mg tablet Take 1 tablet by mouth every 6 hours as needed for Pain. FLUoxetine (PROZAC) 20 mg capsule Take 1 capsule by mouth once daily. gabapentin (NEURONTIN) 300 mg capsule Take 2 capsules by mouth daily at bedtime. meloxicam (MOBIC) 15 mg tablet Take 1 tablet by mouth once daily. Take with food. (Patient not taking: Reported on 09/12/2018 ) lidocaine viscous (LIDOCAINE VISCOUS) 2 % solution Take 5 mL by mouth as needed for Pain. (Patient not taking: Reported on 09/12/2018 ) cetirizine-pseudoephedrine (ZYRTEC-D) 5-120 mg per tablet Take 1 tablet by mouth twice daily. diphenhydrAMINE (BENADRYL) 25 mg capsule For age 12+ years: Take 1-2 capsules by mouth every 6 hours as needed. (may cause drowsiness) (Patient not taking: Reported on 09/12/2018 ) Cholecalciferol, Vitamin D3, 2,000 unit cap Take 1 capsule by mouth daily at bedtime. L.ACID/L.CASEI/B.BIF/B.KAVYA/FOS (PROBIOTIC BLEND ORAL) Take 1 capsule by mouth once daily. No current facility-administered medications on file prior to visit. Social History Social History Tobacco Use Smoking status: Every Day Packs/day: 0.50 Years: 20.00 Pack years: 10.00 Types: Cigarettes Smokeless tobacco: Never Substance Use Topics Alcohol use: Yes Comment: rare Drug use: No Review of Symptoms REVIEW OF SYSTEMS GENERAL: No weight loss, malaise or fevers HEENT: Negative for frequent or significant headaches, No changes in hearing or vision, no nose bleeds or other nasal problems NECK: Negative for lumps, goiter, pain and significant neck swelling RESPIRATORY: Negative for cough, hemoptysis, wheezing, COPD, dyspnea or shortness of breath CARDIOVASCULAR: Negative for chest pain, leg swelling, hypertension, CHF or palpitations GI: No nausea, vomiting, or diarrhea : No history of dysuria, frequency or incontinence JACKHAMMER SPLITTER OPERATOR: Negative for abnormal vaginal bleeding, abnormal vaginal discharge MUSCULOSKELETAL: back pain SKIN: Positive for multiple skin tags, PSYCH: sleep fragmented HEMATOLOGY/LYMPHOLOGY: Negative for prolonged bleeding, bruising easily or swollen nodes ENDOCRINE: Negative for cold or heat intolerance, polyuria, polydipsia and goiter NEURO: Left leg numb following epidural 10 years ago EXAM: LMP 08/15/2018 General Appearance: Well appearing, alert, in no acute distress, well-hydrated, well nourished.. Skin: Skin color, texture, turgor normal, no suspicious rashes or lesions. Neck: Supple, no adenopathy; thyroid symmetric, normal size, no bruits. Lungs: Lungs clear to auscultation. No wheezing, rhonchi, rales.. Heart: RRR without murmur, gallop, or rubs. No ectopy. Abdomen: Normal abdominal exam, Abdomen soft, non-tender. Bowel sounds normal. No masses, organomegaly. Extremities: No deformities, edema, skin discoloration, clubbing or cyanosis. Good capillary refill. . Peripheral Pulses: Normal. Neurologic: Gait normal. Reflexes normal and symmetric. Sensation grossly intact.. Health Maintenance List HEPATITIS B(1 of 3 - 3-dose series) Never done PNEUMOCOCCAL(1 - PCV) Never (more content not included)... [facility] 09-13-2022 Instructions Meagan Meléndez APRN.KENNEY - 09/13/2022 4:15 PM EDT Continue current medications Schedule mammogram Schedule schedule with Dr. Gutierrez Complete labs Follow up in 6 months documented in this encounter [facility] 09-13-2022 History of Presen t illness Narrative Chief Complaint No chief complaint on file. HPI Joanne Blackwood is a 42 year old female who presents here today for Above Complaints.. Patient [facility]. Patient reports that she follows with neurology for difficulty with her lower back. Patient states she feels that this has worsened and she has been told in the past she has lower back problems. Patient reports history of depression, anxiety and radiculopathy. Past medical history, appointments, medications, allergies reviewed. Previous Medical History PAST MEDICAL HISTORY Diagnosis Date Abdominal pain, right upper quadrant Dysthymic disorder Depression (non-psychotic) Low iron Lumbosacral radiculopathy at L4 02/2014 Migraine without aura Nonspecific elevation of levels of transaminase or lactic acid dehydrogenase (LDH) Scoliosis Previous Surgical History PAST SURGICAL HISTORY Procedure Laterality Date LAPS SURG CHOLECYSTECTOMY W/CHOLANGIOGRAPHY 12/15/2007 ? abnormal CBD PAST SURGICAL HISTORY OF dental extraction Family History FAMILY HISTORY Problem Relation Age of Onset Alcohol/Drug Mother Alcohol/Drug Father Cancer Mother LIVER CANCER Cancer Father ESOPHAGEAL CANCER Cancer Maternal Grandmother LIVER CANCER Cancer Paternal Uncle LUNG CANCER Diabetes Paternal Grandmother Emphysema Mother Seizures Maternal Grandfather Patient Allergies ALLERGIES No Known Allergies Current Medications Current Outpatient Medications on File Prior to Visit Medication Sig albuterol HFA (PROVENTIL HFA, VENTOLIN HFA) 90 mcg/actuation inhaler Inhale 2 Puffs as instructed every 4 hours as needed for wheezing/shortness of breath. ibuprofen (MOTRIN) 600 mg tablet Take 1 tablet by mouth every 6 hours as needed for Pain. FLUoxetine (PROZAC) 20 mg capsule Take 1 capsule by mouth once daily. gabapentin (NEURONTIN) 300 mg capsule Take 2 capsules by mouth daily at bedtime. meloxicam (MOBIC) 15 mg tablet Take 1 tablet by mouth once daily. Take with food. (Patient not taking: Reported on 09/12/2018 ) lidocaine viscous (LIDOCAINE VISCOUS) 2 % solution Take 5 mL by mouth as needed for Pain. (Patient not taking: Reported on 09/12/2018 ) cetirizine-pseudoephedrine (ZYRTEC-D) 5-120 mg per tablet Take 1 tablet by mouth twice daily. diphenhydrAMINE (BENADRYL) 25 mg capsule For age 12+ years: Take 1-2 capsules by mouth every 6 hours as needed. (may cause drowsiness) (Patient not taking: Reported on 09/12/2018 ) Cholecalciferol, Vitamin D3, 2,000 unit cap Take 1 capsule by mouth daily at bedtime. L.ACID/L.CASEI/B.BIF/B.KAVYA/FOS (PROBIOTIC BLEND ORAL) Take 1 capsule by mouth once daily. No current facility-administered medications on file prior to visit. Social History Social History Tobacco Use Smoking status: Every Day Packs/day: 0.50 Years: 20.00 Pack years: 10.00 Types: Cigarettes Smokeless tobacco: Never Substance Use Topics Alcohol use: Yes Comment: rare Drug use: No Review of Symptoms REVIEW OF SYSTEMS GENERAL: No weight loss, malaise or fevers HEENT: Negative for frequent or significant headaches, No changes in hearing or vision, no nose bleeds or other nasal problems NECK: Negative for lumps, goiter, pain and significant neck swelling RESPIRATORY: Negative for cough, hemoptysis, wheezing, COPD, dyspnea or shortness of breath CARDIOVASCULAR: Negative for chest pain, leg swelling, hypertension, CHF or palpitations GI: No nausea, vomiting, or diarrhea : No history of dysuria, frequency or incontinence JACKHAMMER SPLITTER OPERATOR: Negative for abnormal vaginal bleeding, abnormal vaginal discharge MUSCULOSKELETAL: back pain SKIN: Positive for multiple skin tags, PSYCH: sleep fragmented HEMATOLOGY/LYMPHOLOGY: Negative for prolonged bleeding, bruising easily or swollen nodes ENDOCRINE: Negative for cold or heat intolerance, polyuria, polydipsia and goiter NEURO: Left leg numb following epidural 10 years ago EXAM: LMP 08/15/2018 General Appearance: Well appearing, alert, in no acute distress, well-hydrated, well nourished.. Skin: Skin color, texture, turgor normal, no suspicious rashes or lesions. Neck: Supple, no adenopathy; thyroid symmetric, normal size, no bruits. Lungs: Lungs clear to auscultation. No wheezing, rhonchi, rales.. Heart: RRR without murmur, gallop, or rubs. No ectopy. Abdomen: Normal abdominal exam, Abdomen soft, non-tender. Bowel sounds normal. No masses, organomegaly. Extremities: No deformities, edema, skin discoloration, clubbing or cyanosis. Good capillary refill. . Peripheral Pulses: Normal. Neurologic: Gait normal. Reflexes normal and symmetric. Sensation grossly intact.. Health Maintenance List HEPATITIS B(1 of 3 - 3-dose series) Never done PNEUMOCOCCAL(1 - PCV) Never done HEPATITIS C SCREENING Never done DTAP,TDAP,TD(1 - Tdap) Never done PAP TESTING due on 05/31/2016 HPV TESTING due on 05/31/2016 MAMMOGRAM Never done COVID-19 VACCINE(4 - Booster for Moderna series) due on 02/05/2022 INFLUENZA(Season Ended) due on 01/14/2023 HIV SCREENING Completed ASSESSMENT/PLAN: 1. Screening for diabetes mellitus - ICD9: V77.1, ICD10: Z13.1 (primary diagnosis) - HGB A1C 2. Encounter for lipid screening for cardiovascular disease - ICD9: V77.91, V81.2, ICD10: Z13.220, Z13.6 - LIPID PANEL, NONFASTING 3. Encounter for wellness examination in adult - ICD9: V70.0, ICD10: Z00.00 - Counseled on healthy diet and regular exercise - Calcium intake with supplements or by diet of 1000 mg/day for under 50, 9984-4129 mg/day for 50+ - Discussed need and benefit for weight loss. BMI 27.81 kg/(m^2) - Mammogram ordered - exam recommended once yearly - Smoking cessation encouraged; discussed risks to health and quitting strategies. Patient is not ready to quit - Follow up for annual exam in one year - CBC + DIFF - COMP METABOLIC PANEL 4. Lumbar radiculopathy - ICD9: 724.4, ICD10: M54.16 Chronic low back pain - NSAIDS- see orders - CONSULT PANEL TO ORTHOPAEDICS 5. Other depression - ICD9: 311, ICD10: F32.89 - BUSPIRONE 10 MG TABLET Meagan Meléndez APRN.KENNEY documented in this encounter [facility] documented as of this encounter (statuses as of 09/14/2022) [facility]03-12-2012 History of Past illness Narrative* Problem Noted Date Resolved Date SUPRF HIGH RISK NEC [V23.89] 2 11/22/2013 Calculus of gallbladder with out mention of cholecystitis or obstruction 10/02/2007 06/28/2011 Abdominal pain, right upper quadrant 06/28/2011 Nonspecific elevation of lev els of transaminase or lactic acid dehydrogenase (LDH) 06/28/2011 documented as of this encounter (statuses as of 09/15/2022) [facility]03[facility] History of Past illness Narrative* Problem Noted Date Resolved Date SUPRF HIGH RISK NEC [V23.89] 2 11/22/2013 Calculus of gallbladder with out mention of cholecystitis or obstruction 10/02/2007 06/28/2011 Abdominal pain, right upper quadrant 06/28/2011 Nonspecific elevation of lev els of transaminase or lactic acid dehydrogenase (LDH) 06/28/2011 documented as of this encounter (statuses as of 09/17/2022) [facility]03-12-2012 History of Past illness Narrative* Problem Noted Date Resolved Date SUPRF HIGH RISK NEC [V23.89] 2 11/22/2013 Calculus of gallbladder with out mention of cholecystitis or obstruction 10/02/2007 06/28/2011 Abdominal pain, right upper quadrant 06/28/2011 Nonspecific elevation of lev els of transaminase or lactic acid dehydrogenase (LDH) 06/28/2011 documented as of this encounter (statuses as of 09/24/2022) [facility]03[facility] History of Past illness Narrative* Problem Noted Date Resolved Date SUPRF HIGH RISK NEC [V23.89] 2 11/22/2013 Calculus of gallbladder with out mention of cholecystitis or obstruction 10/02/2007 06/28/2011 Abdominal pain, right upper quadrant 06/28/2011 Nonspecific elevation of lev els of transaminase or lactic acid dehydrogenase (LDH) 06/28/2011 documented as of this encounter (statuses as of 11/04/2022) [facility] Future Appointments Appointment Date:04/21/2023 09:00:00 AM Scheduled Provider:CHRISTOPHER VARGAS MD Location:[facility] Appointment Type:[facility] Diagnostic Tests Pending * Rapid Plasma Reagin Test 10/14/22 Future Scheduled Tests Laboratory* Lipid Profile 02/18/22 * Complete Metabolic Panel 02/18/22 [facility] Evaluation + Plan note Future Appointments Appointment Date:04/21/2023 09:00:00 AM Scheduled Provider:CHRISTOPHER VARGAS MD Location:[facility] Appointment Type:[facility] Future Scheduled Tests Laboratory* Lipid Profile 02/18/22 * Complete Metabolic Panel 02/18/22 [facility] Evaluation + Plan note Future Appointments Appointment Date:11/25/2022 10:00:00 AM Scheduled Provider:CHRISTOPHER VARGAS MD Location:[facility] Appointment Type: OV Appointment Date:04/21/2023 09:00:00 AM Scheduled Provider:CHRISTOPHER VARGAS MD Location:[facility] Appointment Type:[facility] Future Scheduled Tests Laboratory* Lipid Profile 02/18/22 * Complete Metabolic Panel 02/18/22 [facility] EvVaccibodyation note* Diagnosis Screening for diabetes mellitus- Primary Encounter for lipid screening for cardiovascular disease Screening for lipoid disorders Encounter for wellness examination in adult Lumbar radiculopathy Thoracic or lumbosacral neuritis or radiculitis, unspecified Other depression Encounter for screening mammogram for malignant neoplasm of breast Other screening mammogram documented in this encounter [facility] Diagnosis Leukocytosis, unspecified type- Primary documented in this encounter [facility]* Diagnosis moderate depression Moderate anxiety [facility] No data available for this section [facility] Hospital Discharge instructions No data available for this section [facility] Progress note No data available for this section [facility] Reason for referral (narrative)* Diagnostic Procedure Only (Routine) - Authorized Specialty Diagnoses / Procedures Referred By Mike malone Referred To Contact [facility] Diagnoses Encounter for screening mammogram for malignant neoplasm of breast Procedures HENRI SCREENING SCREENING MAMMOGRAPHY BI 2-VIEW BREAST INC CAD Meagan Meléndez APRN.CNP [address] [place] [address] [facility] [address] [place] [address] Referral ID Status Reason Start Date Expiration Date Visits Requested Visits Authorized [id number] Authorized Auto-Generat ed Referral 09/13/2022 10/13/2023 1 1 * Transition of Care (Routine) - Ref Not Required Specialty Diagnoses / Procedures Referred By Mike malone Referred To Contact Orthopedics Diagnoses Lumbar radiculopathy Procedures CONSULT PANEL TO ORTHOPAEDICS Meagan Meléndez APRN.CNP [address] [place] [address] Taina Gutierrez [address] [address] Referral ID Status Reason Start Date Expiration Date Visits Requested Visits Authorized [id number] Ref Not Required PCP Requested Referral 09/13/2022 09/13/2023 1 1 [facility] Summary Purpose Family History No Family History Records FoundNo Family History Records Found Advance Directives No Advanced Directives Records FoundNo Advanced Directives Records Found Additional Source Comments Source Comments (unrecognize d section and content) In the event this informatio n is protected by the Federal Confidentiality of Alcohol and Drug Abuse Patient Records regulations: The Federal rules restrict any use of the information to criminally investigate or prosecute any alcohol or drug abuse patient.[facility] the event this information is protected by the Federal Confidentiality of Alcohol and Drug Abuse Patient Records regulations: The Federal rules restrict any use of the information to criminally investigate or prosecute any alcohol or drug abuse patient.[facility] the event this information is protected by the Federal Confidentiality of Alcohol and Drug Abuse Patient Records regulations: The Federal rules restrict any use of the information to criminally investigate or prosecute any alcohol or drug abuse patient.[facility] the event this information is protected by the Federal Confidentiality of Alcohol and Drug Abuse Patient Records regulations: The Federal rules restrict any use of the information to criminally investigate or prosecute any alcohol or drug abuse patient.[facility] the event this information is protected by the Federal Confidentiality of Alcohol and Drug Abuse Patient Records regulations: The Federal rules restrict any use of the information to criminally investigate or prosecute any alcohol or drug abuse patient.[facility] Reason for Visit (unrecogniz ed section and content) Reason Comments Results Reason Onset Date Comments Refill Request 11/03/2022 Care Teams (unrecognized sec tion and content) Vocal Teacher Relationship Specialty Start Date End Date Meagan Meléndez APRN.CUPOLA MAN [address], [place] [id number] PCP - General Family Medicine 09/13/22 Vocal Teacher Relationship Specialty Start Date End Date Meagan Meléndez, PLASTIC AND RECONSTRUCTIVE SURGEON.[employer] [address], [place] [id number] PCP - General Family Medicine 09/13/22 Vocal Teacher Relationship Specialty Start Date End Date Meagan Meléndez, PLASTIC AND RECONSTRUCTIVE SURGEON.[employer] [address], [place] [address] PCP - General Family Medicine 09/13/22 Vocal Teacher Relationship Specialty Start Date End Date Meagan Meléndez, PLASTIC AND RECONSTRUCTIVE SURGEON.[employer] MAN [address], [place] [id number] PCP - General Family Medicine 09/13/22 INFORMATION SOURCE (unrecogn ized section and content) DATE CREATED AUTHOR AUTHOR'S AMBREEN VEGA 03/21/2023 [facility] FOR RECORDS PERTAINING TO PATIENTS WHO ARE OR HAVE BEEN ENROLLED IN A CHEMICAL DEPENDENCY/SUBSTANCEABUSE PROGRAM, SOME INFORMATION MAY BE OMITTED. This clinical summary was aggregated from multiple sources. Caution should be exercised in using it in the provision of clinical care. This summary normalizes information from multiple sources, and as a consequence, information in this document may materially change the coding, format and clinical context of patient data. In addition, data may be omitted in some cases. CLINICAL DECISIONS SHOULD BE BASED ON THE PRIMARY CLINICAL RECORDS. [facility]. provides no warranty or guarantee of the accuracy or completeness of information in this document.
[2023-06-23 09:19] LABS: HPV APTIMA, High Risk Negative
== END | disposition home or self-care (01) ==
LOC: LABSPEC 12:05
PROVIDERS: Referring Provider Obstetrics & Gynecology; Visit Provider Obstetrics & Gynecology
DX: Z12.4 Encounter for screening for malignant neoplasm of cervix (principal)
CPT/HCPCS: 87624; 88175; G0145

== ENCOUNTER → 2023-06-22 | Outpatient (CLI) | payer MEDICAID, SELFPAY ==
--- NOTE | 2023-06-22 12:25 | US_ITS ---
STUDY: ULTRASOUND OF THE FEMALE PELVIS - COMPLETE REASON FOR EXAM: Female, 42 years old. Abnormal Uterine bleeding LMP: Unknown. TECHNIQUE: Transabdominal and Transvaginal TECHNICAL QUALITY: Adequate. COMPARISON: Comparison is made with prior study dated September 29, 2022. FINDINGS: The uterus is anteverted and is in a midline position. The uterus measures 9.8 cm x 6.6 cm x 4.6 cm. Normal uterine cervix. The endometrium measures 6 mm in thickness, and is hyperechoic. There is no demonstrated endometrial mass. There is no demonstrated myometrial mass. I.U.D. - The patient does not have an I.U.D. The right ovary is visualized. The right ovary measures 3.1 cm x 2.1 cm x 1.9 cm. There is no right ovarian cyst or ovarian mass. There is no visualized right adnexal mass or complex lesion. There is normal arterial and normal venous vascularity. The left ovary is visualized. The left ovary measures 3 cm x 2.7 cm x 1.3 cm. There is no left ovarian cyst or ovarian mass. There is no visualized left adnexal mass or complex lesion. There is normal arterial and normal venous vascularity. There is no fluid in the cul-de-sac. US/Pelvic (Non ) IMPRESSION: Normal female pelvis. Electronically Signed: Noe Jean MD at 13:28 EST ,
== END | disposition home or self-care (01) ==
LOC: OPUS 12:25
PROVIDERS: PCP Nurse Practitioner Family; Referring Provider Obstetrics & Gynecology; Visit Provider Obstetrics & Gynecology
DX: N93.9 Abnormal uterine and vaginal bleeding, unspecified (principal)
CPT/HCPCS: 76830; 76856

== ENCOUNTER → 2023-07-13 | Outpatient (CLI) | payer MEDICAID, SELFPAY ==
--- NOTE | 2023-07-13 | EMB_PTH ---
PATHOLOGY RESULTS PATIENT: SPEEDY BLACKWOOD LOC: [facility] U#:[id number] AGE/SX: 42/F ROOM: RE07/13/[address]: Dr. Tati Alvarez DO : 1980 BED: DIS: 07/13/2023 SPEC #: [id number] RECD: 07/13/23 17:23 STATUS: YELENA VINESLyndsay #: [id number] RYAN: 07/13/23 00:[address]: Tati Alvarez DEPT: SURGICAL PATHOLOGY RECD BY: Daniel Camilo ENTERED: 07/14/23 09:00 SP TYPE: ENDOM BX/C CHALINO DR: Meagan Meléndez, PREMIUM NOTE INTEREST CALCULATOR CLERK-C Tissues: Endometrium, NOS Procedures: Surgery Specimen Level IV HEADER OPERATION: Endometrial biopsy PRE-OP DIAGNOSIS: Menorrhagia TISSUE SUBMITTED: Endometrial lining MICROSCOPIC DIAGNOSIS Endometrium, biopsy: Fragments of transition endometrium with stromal and focal glandular breakdown. Fragments of benign endocervix with squamous metaplasia. AM:leslie 07/15/2023 MICROSCOPIC DESCRIPTION Slides are reviewed. GROSS DESCRIPTION Received is one container labeled with the patient's name and not further designated. The specimen consists of multiple irregular fragments of red-irwin soft tissue that in aggregate measure 2.0 x 1.5 x <0.1 cm. The specimen is totally submitted in one cassette. / AM:leslie 07/14/2023 TC:5 CPT: 70217
== END | disposition home or self-care (01) ==
PROVIDERS: PCP Nurse Practitioner Family; Visit Provider Obstetrics & Gynecology
DX: N92.0 Excessive and frequent menstruation with regular cycle (principal)
CPT/HCPCS: 88305

== ENCOUNTER 2023-07-26 13:05 | Day surgery (SDC) | payer MEDICAID, SELFPAY ==
[2023-07-13 15:10] LABS: Hematocrit 35.7 % (37-47); Hemoglobin 12.5 g/dL (12.0-15.0); Mean Corpuscular Hgb 32.8 pg (27.0-32.0); Mean Corpuscular Volume 93.7 fL (81-99); Mean Platelet Vol. 9.5 fl (6.2-12.0); Platelet Count 332 K/mm3 (150-450); RBC Distribution Width CV 12.1 % (11.6-14.6); RBC Distribution Width SD 41.4 fl (35.1-43.9); Red Blood Count 3.81 M/mm3 (4.2-5.4); White Blood Count 7.7 K/mm3 (4.4-11.0)
[2023-07-26] MEDS: Lidocaine 1% (20 ml mdv) 20 ML Vial (14:14)
--- NOTE | 2023-07-26 14:14 | EMB_PTH ---
PATHOLOGY RESULTS PATIENT: SPEEDY BLACKWOOD [place]: [facility] U#:[id number] AGE/SX: 42/F ROOM: RE07/26/[address]: Dr. Tati Alvarez DO : 1980 BED: DIS: 07/26/2023 SPEC #: [id number] RECD: 07/26/23 15:40 STATUS: YELENA VINESLyndsay #: [id number] RYAN: 07/26/23 14:[address]: Tati Alvarez DEPT: SURGICAL PATHOLOGY RECD BY: Marce Hanna ENTERED: 07/27/23 09:33 SP TYPE: ENDOM BX/C CHALINO DR: Meagan Meléndez, MECHANICAL MAINTENANCE INSTRUCTOR-C Tissues: Endometrium, NOS Procedures: Surgery Specimen Level IV HEADER OPERATION: D&C Hysteroscopy Angelika PRE-OP DIAGNOSIS: Menorrhagia TISSUE SUBMITTED: Endometrial Curetting MICROSCOPIC DIAGNOSIS Endometrial Curettings; Proliferative endometrium with focal area of disordered proliferative endometrium and focal glandular breakdown. Fragments of benign endocervical mucosa with squamous metaplasia. / 07/28/2023 COMMENT Focal chronic endometritis is also noted. Please make reference to previous specimen. ([id number]). Endometrial biopsy with diagnosis of fragments of transition endometrium with stromal and focal glandular breakdown. Case has been reviewed in consultation with Dr. Boothe who concurs with the above diagnosis. IDC:AM MICROSCOPIC DESCRIPTION Slides are reviewed. GROSS DESCRIPTION Received in fixative is one container labeled with the patient's name and designated Endometrial Curettings. The specimen consists of multiple irregular fragments of pink soft tissue mixed with polypoid fragments that in aggregate measure 3 x 2.5 x 0.3 cm. The specimen is totally submitted in one cassette. / 07/27/23 TC:5 CPT: 25761
[2023-07-26 19:44] LABS: Internal QC Validated? YES +Cl - CLEAR BKGD; Pregnancy, Urine Negative Negative; Record Kit Lot#,Urine Preg 718086
--- OUTSIDE RECORDS SUMMARY | 2023-07-27 01:23 | XMS RPT_ITS | CCD ---
Author Name Unknown Address [id number] [place] [address] Organization [facility] Care Team Providers Care Pediatric Physical Therapy Assistant Name Role Phone Meagan Meléndez APRN.CNP Primary Care Provider DEBBIE ANDRES, DR WILKINS Primary Care Physician ALICIA BARKER, CHRISTOPHER Tolliver Attending Unavailable DEBBIE ANDRES, DR WILKINS Primary Care Unavailable ALICIA BARKER, CHRISTOPHER Tolliver Attending Unavailable DEBBIE ANDRES, DR WILKINS Primary Care Unavailable CHRISTOPHER VARGAS MD Attending Unavailable DEBBIE ANDRES, DR WILKINS Primary Care Unavailable CHRISTOPHER VARGAS MD Consulting Unavailable TESSIE, MEAGAN Primary Care Unavailable MEAGAN MELÉNDEZ Attending Unavailable JENNIFEROBLE, MEAGAN Primary Care Unavailable KNOBLE, MEAGAN Referring Unavailable KNOBLE, MEAGAN Primary Care Unavailable KNOBLE, MEAGAN Referring Unavailable KNMEAGAN MARIANO Attending Unavailable JENNIFEROBLE, MEAGAN Primary Care Unavailable KNOBLE, MEAGAN Referring Unavailable JENNIFEROBLE, MEAGAN Primary Care Unavailable MEAGAN MELÉNDEZ Attending Unavailable SELF Referring Unavailable KNOBLE, MEAGAN Primary Care Unavailable KNOBLEMEAGAN Attending Unavailable JENNIFEROBLE, MEAGAN Primary Care Unavailable KNOBLEMEAGAN Referring Unavailable Medications Current Medications Medication Drug Class(es) Dates Sig (Normalized) Sig (Original) azithromycin 250 mg oral tablet (1 source) Macrolide Antimicrobial Start: 10-18-2022 End: 10-19-2022 azithromycin 250 mg oral tablet Dose : 1,000 mg = 4 tab(s), Oral, qDay, X 1 day(s), # 4 tab(s), 0 Refill(s), 10/19/22 13:43:00 EDT, Pharmacy: [id number], 164, cm, 10/14/22 8:53:00 EDT, Height, 72.9 Start Date: 10/18/22 Stop Date: 10/19/22 Status: Ordered busPIRone hydrochloride 10 mg oral tablet (9 sources) Start: 09-13-2022 End: 09-13-2022 take 1 tablet by mouth twice daily busPIRone 10 mg oral tablet take 1 tablet by mouth twice a day Start Date: 10/07/22 Status: Ordered Completed/Discontinued Medications Medication Drug Class(es) Dates Sig (Normalized) Sig (Original) [id number] 200 actuat albuterol 0.09 mg/actuat metered dose [...] Problem Classification Problem Date Documented Date Episodic/Chronic Administrative/socia l admission (1 source) Tobacco abuse counseling; Translations: [Encounter for smoking cessation counseling] Onset: 06-20-2023 Episodic Anxiety disorders (5 sources) Generalized anxiety disorder; [...] of transmission] Onset: 10-14-2022 Episodic Mood disorders (12 sources) Depressive disorder; Translations: [Other specified depressive episodes] Onset: 12-26-2013 Chronic Other female genital disorders (3 sources) Postcoital bleeding 10-07-2022 Chronic Other nervous system disorders (1 source) Other chronic pain; Translations: [Chronic midline low back pain without sciatica] Onset: 06-19-2014 Chronic Other nervous system disorders (3 sources) Paresthesia of lower extremity 01-25-2019 Episodic Other upper respiratory disease (3 sources) Allergic rhinitis 07-19-2019 Chronic Residual codes; unclassified (3 sources) Chronic back pain 12-19-2015 Episodic Sexually transmitted infections (not HIV or hepatitis) (1 source) Chlamydial cervicitis 10-25-2022 Episodic Spondylosis; intervertebral disc disorders; other back problems (7 sources) Degeneration of lumbar intervertebral disc; Translations: [Other intervertebral disc degeneration, lumbar region] Onset: 06-19-2014 06-19-2014 Chronic Spondylosis; intervertebral disc disorders; other back problems (19 sources) Lumbar radiculopathy; Translations: [Radiculopathy, lumbar region] Onset: 06-19-2014 Episodic Unclassified (1 source) Chronic midline low back pain without sciatica; Translations: [Chronic midline low back pain without sciatica] Onset: 06-19-2014 Past or Other Problems Problem Classification Problem Date Documented Da te Episodic/Chronic Other connective tissue disease (7 sources) Pain in lower limb; Translations: [Pain in leg, unspecified] Onset: 08-31-2011 08-31-2011 Episodic Other non-traumatic joint disorders (1 source) Pain in left knee; Translations: [Acute pain of left knee] Onset: 01-24-2023 Episodic Other screening for suspected conditions (not mental disorders or infectious disease) (8 sources) Patient encounter status; Translations: [Encounter for screening for diabetes mellitus] Onset: 09-13-2022 Episodic Other skin disorders (1 source) Generalized hyperhidrosis; Translations: [Night sweats] Onset: 01-24-2023 Episodic Residual codes; unclassified (10 sources) Tobacco user; Translations: [Tobacco use] Onset: 12-26-2013 12-26-2013 Episodic Screening and history of mental health and substance abuse codes (7 sources) Tobacco use and exposure - finding; Translations: [Personal history of nicotine dependence] Onset: 06-28-2011 06-28-2011 Episodic Results Test Name Value Interpretation Reference Range Facil ity Vital Signs Date Time Vital Sign Value Performing Clinician Faci lity 06-20-2023 08:55-0500 Body weight 76.66 kg Meagan Meléndez APRN.PREPARATION PLANT REPAIRER Work Phone: [facility] 06-20-2023 08:55-0500 Diastolic blood pressure 70 mm[Hg] Meagan Meléndez METAL TEMPLATE MAKER.PREPARATION PLANT REPAIRER Work Phone: [facility] 06-20-2023 08:55-0500 Heart rate 89 /min Meagan Meléndez METAL TEMPLATE MAKER.PREPARATION PLANT REPAIRER Work Phone: [facility] 06-20-2023 08:55-0500 Respiratory rate 16 /min Meagan Meléndez METAL TEMPLATE MAKER.PREPARATION PLANT REPAIRER Work Phone: [facility] 06-20-2023 08:55-0500 Systolic blood pressure 104 mm[Hg] Meagan Meléndez METAL TEMPLATE MAKER.PREPARATION PLANT REPAIRER Work Phone: [facility] 09-13-2022 15:48-0400 Body height 162.6 cm Meagan Meléndez METAL TEMPLATE MAKER.PREPARATION PLANT REPAIRER Work Phone: [facility] 09-13-2022 15:48-0400 Body weight 73.48 kg Meagan Meléndez METAL TEMPLATE MAKER.PREPARATION PLANT REPAIRER Work Phone: [facility] 09-13-2022 15:48-0400 Diastolic blood pressure 66 mm[Hg] Meagan Meléndez METAL TEMPLATE MAKER.PREPARATION PLANT REPAIRER Work Phone: [facility] 09-13-2022 15:48-0400 Heart rate 84 /min Meagan Meléndez METAL TEMPLATE MAKER.PREPARATION PLANT REPAIRER Work Phone: [facility] 09-13-2022 15:48-0400 Respiratory rate 14 /min Meagan Meléndez METAL TEMPLATE MAKER.PREPARATION PLANT REPAIRER Work Phone: [facility] 09-13-2022 15:48-0400 Systolic blood pressure 108 mm[Hg] Meagan Meléndez METAL TEMPLATE MAKER.PREPARATION PLANT REPAIRER Work Phone: [facility] Encounters Encounter Date Encounter Type Care Provider Facility Start: 07-15-2023 Telephone encounter Meagan corley APRN.PREPARATION PLANT REPAIRER Work Phone: [facility] Procedures Date Procedure Procedure Detail Performing Clinician Start: 09-14-2022 Mammography Gilma ferguson PA-C Work Phone: Start: 01-15-2016 Laparoscopic sterilization CHRISTOPHER VARGAS MD Start: 05-16-2006 Ev BALBUENA MD Plan of Treatment Date Care Activity Detail Author Start: 02-19-2032 Urine microalbumin profile DTa P,Tdap,Td Vaccine (2 - Td or Tdap) [facility] Start: 05-16-2027 HPV TESTING HPV TESTING [facility] Start: 05-16-2027 PAP TESTING PAP TESTING [facility] Start: 05-16-2027 Screening for malign ant neoplasm of cervix [facility] Start: 03-17-2024 Covid-19 Vaccine () Covid-19 Vaccine () [facility] Immunizations Immunization Date Immunization Notes Care Provider Fa bertha 02-18-2022 tetanus toxoid, redu demetri diphtheria toxoid, and acellular pertussis vaccine, adsorbed; Translations: [Boostrix (Tdap)] CHRISTOPHER VARGAS MD [facility] 12-11-2021 SARS-CoV-2 (COVID-19 ) mRNA-1273 vaccine CHRISTOPHER VARGAS MD [facility] 10-30-2020 SARS-CoV-2 (COVID-19 ) mRNA-1273 vaccine CHRISTOPHER VARGAS MD [facility] 10-02-2020 SARS-CoV-2 (COVID-19 ) mRNA-1273 vaccine CHRISTOPHER VARGAS MD [facility] 01-08-2012 measles, mumps and rubella virus vaccine Meagan Meléndez METAL TEMPLATE MAKER.PREPARATION PLANT REPAIRER Work Phone: [facility] Payers Date Payer Category Payer Medicaid [employer] [id number] 2022-Present [phone] [address] [place] [address] Medicaid [id number] 2022 Unknown [id number] 2022 Unknown [id number] 1980 Unknown [id number] 1978 Unknown [id number] 1978 Unknown [id number] Social History Date Type Detail Facility Start: 01-28-[facility] Work Phone: History of tobacco use Cigarette Smoker [facility] Work Phone: Start: 01-28-2014 End: 03-17-2023 Cigarettes smoked current (pack per day) - Reported 0.5 [facility] Start: 01-28-2014 Tobacco use and exposure Smokeless tobacco non-user [facility] Work Phone: Start: 09-13-2022 Alcohol intake Current drinke r of alcohol (finding) [facility] Start: 01-28-2014 Alcohol Comment [facility] Start: 1980 Sex Assigned At Not on file [facility] Start: 10-07-2022 Tobacco smoking status Light t obacco smoker (finding) [facility] Sex Assigned At Female [facility] Start: 09-13-2022 End: 03-17-2023 Tobacco use panel [facility] National Score (1-10 0), lower number is lower risk 66 [facility] Clinical Notes 07-26-2011 to 07-15-2023 Telephone Encounter - Gilma Triplett PA-C - 07/15/2023 2:17 PM ESTTelephone Encounter - Edilma De Souza - 07/15/2023 1:14 PM Meagan Knapp APRN.CNP - 06/20/2023 8:58 AM EST Note Date & Type Note Facility 07-15-2023 Miscellaneous Notes The following approved medication requests have been transmitted electronically. Requested Prescriptions Signed Prescriptions Disp Refills gabapentin (NEURONTIN) 100 mg capsule 45 capsule 0 Sig: Take 1 capsule by mouth every other day for 90 days. Authorizing Provider: GILMA TRIPLETT PA-C Patient states she is still taking this medication please advise. Patient has been identified by name and date of : Yes Disp Refills Start End gabapentin (NEURONTIN) 100 mg capsule (Discontinued) RX INSTRUCTIONS: Patient aware RX will be sent to pharmacy. No need to notify patient. Edilma James Pss documented in this encounter [facility] 06-20-2023 Note HNO ID: [id number] Author: EMELY OLIVA RT(R) Service: Radiology Author Type: Technologist Type: Progress Notes Filed: 06/20/2023 09:33 Note Text: Radiology Service Progress Note PATIENT NAME: Joanne Law DATE OF SERVICE: June 20, 2023 TIME: 9:22 AM PATIENT IDENTITY VERIFICATION COMPLETED USING TWO (2) IDENTIFIERS: Name and Date of confirmed by patient verbally. FALL SCREENING: Has the patient had 2 falls in the last year or 1 fall with injury or currently using an Ambulatory Assistive Device (Walker, Cane, Wheelchair, Crutches, etc.)? No PATIENT GENDER DATA: Female. status: : No status: NO. PATIENT RELEVANT IMPLANT DATA REVIEWED: Yes PATIENT PRESENTS WITH AN IMPLANTABLE OR ATTACHED BLAST FURNACE BLOWER: No RADIOLOGY DEPARTMENT: General X-ray: Exam(s) Completed: Spine X-Ray(s): Lumbar AP / LAT / L5-S1 / FLEX-EXT PERIPHERAL IV DATA: Not applicable SIGNED BY: RT Kate(Dat) June 20, 2023 9:22 AM [facility] 06-20-2023 Note HNO ID: [id number] Author: MEAGAN MELÉNDEZ APRN.PREPARATION PLANT REPAIRER Service: ? Author Type: Nurse Practitioner Type: Progress Notes Filed: 06/20/2023 09:07 Note Text: Chief Complaint Patient presents with: Back Pain: Low back pain X 1 month HPI Joanne Law is a 42 year old female who presents here today for Above Complaints.. Patient presents for low back pain. Patient has chronic low back pain and lumbar radiculopathy and reports worsening back pain for the last month. . Patient requesting wellbutrin for smoking cessation. 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 Past medical history, appointments, medications, allergies reviewed. [...] on File Prior to Visit Medication Sig cloNIDine HCl (CATAPRES) 0.1 mg tablet Take 0.1 mg by mouth daily at bedtime. gabapentin (NEURONTIN) 100 mg capsule Take 1 capsule by mouth every other day for 90 days. FLUoxetine (PROZAC) 20 mg capsule Take 1 capsule by mouth once daily. Cholecalciferol, Vitamin D3, 2,000 unit cap [...] REVIEW OF SYSTEMS SEE HPI EXAM: BP 104/70 Pulse 89 Resp 16 Wt 76.7 kg (169 lb) LMP 08/15/2018 BMI 29.01 kg/m? General Appearance: Well appearing, alert, in no acute distress, well-hydrated, well nourished.. Back: Pain with palpation of lumbar spine and surrounding area. Limited flexion and extension of back due to instigation of pain. reflexes are 2+ and symmetric, motor and sensory appear to be normal Health Maintenance List Hepatitis C Screening Never done Mammogram Screening due on 09/15/2023 Pneumococcal Vaccine(1 of 2 - PCV) due on 09/14/2023 Influenza Vaccine(1) due on 11/13/2023 Covid-19 Vaccine( - season) due on 03/17/2024 Pap Testing due on 05/16/2027 HPV Testing due on 05/16/2027 DTaP,Tdap,Td Vaccine(2 - Td or Tdap) due on 02/19/2032 HIV Screening Completed HPV Vaccine Aged Out Hepatitis B Vaccine Discontinued ASSESSMENT/PLAN: 1. Lumbar radiculopathy - ICD9: 724.4, ICD10: M54.16 (primary diagnosis) Chronic low back pain - XR LUMBAR MOTION 4V AP/LAT/ FLEX/EXT - CONSULT TO ORTHOPAEDICS 2. Chronic midline low back pain without sciatica - ICD9: 724.2, 338.29, ICD10: M54.50, G89.29 - CONSULT TO ORTHOPAEDICS 3. Encounter for smoking cessation counseling - ICD9: V65.42, 305.1, ICD10: Z71.6 - Cessation encouraged. - Physiologic and physical aspects of tobacco addiction as well as strategies for quitting were discussed. - Counseling was given focusing on the harmful effects of this addiction especially given the patient's medical condition(s) which will be worsened because of the chemicals in tobacco. - Prescription for bupropion (Wellbutrin) given - BUPROPION XL 150 MG TAB Meagan Meléndez, METAL TEMPLATE MAKER.[facility] 06-20-2023 History of Presen t illness Narrative Chief Complaint Patient presents with: Back Pain: Low back pain X 1 month HPI Joanne Law is a 42 year old female who presents here today for Above Complaints.. Patient presents for low back pain. Patient has chronic low back pain and lumbar radiculopathy and reports worsening back pain for the last month. . Patient requesting wellbutrin for smoking cessation. 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 Past medical history, appointments, medications, allergies reviewed. [...] on File Prior to Visit Medication Sig cloNIDine HCl (CATAPRES) 0.1 mg tablet Take 0.1 mg by mouth daily at bedtime. gabapentin (NEURONTIN) 100 mg capsule Take 1 capsule by mouth every other day for 90 days. FLUoxetine (PROZAC) 20 mg capsule Take 1 capsule by mouth once daily. Cholecalciferol, Vitamin D3, 2,000 unit cap [...] REVIEW OF SYSTEMS SEE HPI EXAM: BP 104/70 Pulse 89 Resp 16 Wt 76.7 kg (169 lb) LMP 08/15/2018 BMI 29.01 kg/m General Appearance: Well appearing, alert, in no acute distress, well-hydrated, well nourished.. Back: Pain with palpation of lumbar spine and surrounding area. Limited flexion and extension of back due to instigation of pain. reflexes are 2+ and symmetric, motor and sensory appear to be normal Health Maintenance List Hepatitis C Screening Never done Mammogram Screening due on 09/15/2023 Pneumococcal Vaccine(1 of 2 - PCV) due on 09/14/2023 Influenza Vaccine(1) due on 11/13/2023 Covid-19 Vaccine(4 - season) due on 03/17/2024 Pap Testing due on 05/16/2027 HPV Testing due on 05/16/2027 DTaP,Tdap,Td Vaccine(2 - Td or Tdap) due on 02/19/2032 HIV Screening Completed HPV Vaccine Aged Out Hepatitis B Vaccine Discontinued ASSESSMENT/PLAN: 1. Lumbar radiculopathy - ICD9: 724.4, ICD10: M54.16 (primary diagnosis) Chronic low back pain - XR LUMBAR MOTION 4V AP/LAT/ FLEX/EXT - CONSULT TO ORTHOPAEDICS 2. Chronic midline low back pain without sciatica - ICD9: 724.2, 338.29, ICD10: M54.50, G89.29 - CONSULT TO ORTHOPAEDICS 3. Encounter for smoking cessation counseling - ICD9: V65.42, 305.1, ICD10: Z71.6 - Cessation encouraged. - Physiologic and physical aspects of tobacco addiction as well as strategies for quitting were discussed. - Counseling was given focusing on the harmful effects of this addiction especially given the patient's medical condition(s) which will be worsened because of the chemicals in tobacco. - Prescription for bupropion (Wellbutrin) given - BUPROPION XL 150 MG TAB Meagan Meléndez APRN.KENNEY documented in this encounter [facility] 03-17-2023 Note HNO ID: [id number] Author: Meagan Meléndez APRN.KENNEY Service: ? Author Type: Nurse Practitioner Type: Progress Notes Filed: 03/17/2023 9:34 AM Note Text: Chief Complaint Patient presents with: 6 Month Exam HPI Joanne Law is a 42 year old female who presents here today for Above Complaints.. Pt states she recently talked with SUPERVISOR MULTIFOC[employer] L[employer] about night sweats- was dx with premenopausal- [...] Influenza Vaccine(1) Never done Covid-19 Vaccine(4 - 2022-24 season) due on 01/14/2023 Pneumococcal Vaccine(1 - [...] -Continue follow up with psych Meagan Meléndez APRN.PREPARATION PLANT REPAIRER I have personally seen and examined the patient and performed the medical-decision making components. I have reviewed the Advanced Practice Registered Nurse (METAL TEMPLATE MAKER) student's documentation and verified the findings in the note as written. Any additions or changes are noted in bold/italics. Meagan Meléndez APRN.PREPARATION PLANT REPAIRER [facility] 01-24-2023 Note HNO ID: [id number] Author: Emely Oliva RT(R) Service: Radiology Author Type: Technologist Type: Progress Notes Filed: 01/24/2023 2:22 PM Note Text: Radiology Service Progress Note PATIENT NAME: Joanne Law DATE OF SERVICE: January 24, 2023 TIME: [...] PERIPHERAL IV DATA: Not applicable SIGNED BY: Emely Oliva, RT(R) January 24, 2023 2:07 PM [facility] 01-24-2023 Note HNO ID: [id number] Author: Meagan Meléndez APRN.PREPARATION PLANT REPAIRER Service: ? Author Type: Nurse Practitioner Type: Progress Notes Filed: 01/24/2023 2:00 PM Note Text: Chief Complaint Patient presents with: Night Sweats HPI Joanne Law is a 42 year old female who [...] FRONTAL/LAT -Instructed patient to follow up with [employer] for further evaluation of hormonal causes 2. Acute pain of left knee - ICD9: 719.46, ICD10: M25.562 - XR KNEE GENERAL 4V AP BOTH/PA BOTH/LAT/MERC LEFT Meagan Meléndez APRN.PREPARATION PLANT REPAIRER [facility] 11-03-2022 Miscellaneous Notes The following approved medication [...] advise. Lulu Escobar documented in this encounter [facility] 09-23-2022 Miscellaneous Notes Patient calls and notified of results and providers instructions. Patient verbalizes understanding. Patient called from the [phone] number. No phone number update at this [...] at her convenience. documented in this encounter [facility] 09-15-2022 Miscellaneous Notes Pt notified of same. Rashard Lombardo LPN ----- Message from Gilma Triplett PA-C sent at 09/15/2022 11:33 AM EDT ----- Normal mammogram. Repeat in 1 year. documented in this encounter [facility] 09-15-2022 Miscellaneous Notes September 15, 2022 PID: [id number] Joanne Law [address] [facility] [address] [place] [address] Dear Ms. Law, We are pleased to inform you that [...] report will be kept on file at [facility] as part of your permanent medical record and are available for your continuing care. Thank you for allowing us to help in meeting your health care needs. Sincerely, Dr. Medrano Interpreting Radiologist [facility] (Normal over 40) documented in this encounter [facility] 09-14-2022 Note HNO ID: [id number] Author: RT Bernard(R) Service: ? Author Type: Technologist Type: Progress Notes Filed: 09/14/2022 8:45 AM Note Text: Radiology Service Progress Note PATIENT NAME: Joanne Law DATE OF SERVICE: September 14, 2022 TIME: [...] RT Bernard(R) September 14, 2022 8:44 AM [facility] 09-13-2022 Note HNO ID: [id number] Author: Meagan Meléndez APRN.PREPARATION PLANT REPAIRER Service: ? Author Type: Nurse Practitioner Type: Progress Notes Filed: 09/13/2022 4:16 PM Note Text: Chief Complaint No chief complaint on file. HPI Joanne Law is a 42 year old female who presents here today for Above Complaints.. Patient presents to [facility]. Patient reports that she follows with neurology [...] No history of dysuria, frequency or incontinence [employer]: Negative for abnormal vaginal bleeding, abnormal vaginal [...] - PCV) Never (more content not included)... [facility] 09-13-2022 Instructions Meagan Meléndez APRN.CNP - 09/13/2022 4:15 PM EDT Continue current medications Schedule mammogram Schedule schedule with Dr. Gutierrez Complete labs Follow up in 6 months documented in this encounter [facility] 09-13-2022 History of Presen t illness Narrative Chief Complaint No chief complaint on file. HPI Joanne R Law is a 42 year old female who presents here today for Above Complaints.. Patient presents to establish care. Patient reports that she follows with [...] No history of dysuria, frequency or incontinence SUPER[employer]: Negative for abnormal vaginal bleeding, abnormal vaginal [...] diet of 1000 mg/day for under 50, 0999-6216 mg/day for 50+ - Discussed need and [...] Meagan Meléndez APRN.KENNEY documented in this encounter [facility] documented as of this encounter (statuses as of 09/14/2022) [facility]03-12-2012 History of Past illness Narrative* Problem Noted Date Resolved Date SUPRF HIGH RISK NEC [V23.89] 2 11/22/2013 Calculus of gallbladder with out mention of cholecystitis or obstruction 10/02/2007 06/28/2011 Abdominal pain, right upper quadrant 06/28/2011 Nonspecific elevation of lev els of transaminase or lactic acid dehydrogenase (LDH) 06/28/2011 documented as of this encounter (statuses as of 09/15/2022) [facility] History of Past illness Narrative* Problem Noted Date Resolved Date SUPRF HIGH RISK NEC [V23.89] 2 11/22/2013 Calculus of gallbladder with out mention of cholecystitis or obstruction 10/02/2007 06/28/2011 Abdominal pain, right upper quadrant 06/28/2011 Nonspecific elevation of lev els of transaminase or lactic acid dehydrogenase (LDH) 06/28/2011 documented as of this encounter (statuses as of 09/17/2022) [facility] History of Past illness Narrative* Problem Noted Date Resolved Date SUPRF HIGH RISK NEC [V23.89] 2 11/22/2013 Calculus of gallbladder with out mention of cholecystitis or obstruction 10/02/2007 06/28/2011 Abdominal pain, right upper quadrant 06/28/2011 Nonspecific elevation of lev els of transaminase or lactic acid dehydrogenase (LDH) 06/28/2011 documented as of this encounter (statuses as of 09/24/2022) [facility] History of Past illness Narrative* Problem Noted Date Resolved Date SUPRF HIGH RISK NEC [V23.89] 2 11/22/2013 Calculus of gallbladder with out mention of cholecystitis or obstruction 10/02/2007 06/28/2011 Abdominal pain, right upper quadrant 06/28/2011 Nonspecific elevation of lev els of transaminase or lactic acid dehydrogenase (LDH) 06/28/2011 documented as of this encounter (statuses as of 11/04/2022) [facility]03-12-2012 History of Past illness Narrative* Problem Noted Date Diagnosed Date Resolved Date SUPRF HIGH RISK NEC [V23.89] 07/26/2011 11/22/2013 Calculus of gallbladder with out mention of cholecystitis or obstruction 10/02/2007 06/28/2011 Abdominal pain, right upper quadrant 06/28/2011 Nonspecific elevation of lev els of transaminase or lactic acid dehydrogenase (LDH) 06/28/2011 documented as of this encounter (statuses as of 06/20/2023) [facility]03-12-2012 History of Past illness Narrative* Problem Noted Date Diagnosed Date Resolved Date SUPRF HIGH RISK NEC [V23.89] 07/26/2011 11/22/2013 Calculus of gallbladder with out mention of cholecystitis or obstruction 10/02/2007 06/28/2011 Abdominal pain, right upper quadrant 06/28/2011 Nonspecific elevation of lev els of transaminase or lactic acid dehydrogenase (LDH) 06/28/2011 documented as of this encounter (statuses as of 07/15/2023) [facility] Appointment Date:04/21/2023 09:00:00 AM Scheduled Provider:CHRISTOPHER VARGAS MD Location:[facility] Appointment Type:[facility] Diagnostic Tests Pending * Rapid Plasma Reagin Test 10/14/22 Future Scheduled Tests Laboratory* Lipid Profile 02/18/22 * Complete Metabolic Panel 02/18/22 [facility] Evaluation + Plan note Future Appointments Appointment Date:04/21/2023 09:00:00 AM Scheduled Provider:CHRISTOPHER VARGAS MD Location:[facility] Appointment Type:[facility] Future Scheduled Tests Laboratory* Lipid Profile 02/18/22 * Complete Metabolic Panel 02/18/22 [facility] Evaluation + Plan note Future Appointments Appointment Date:11/25/2022 10:00:00 AM Scheduled Provider:CHRISTOPHER VARGAS MD Location:[facility] Appointment Type: OV Appointment Date:04/21/2023 09:00:00 AM Scheduled Provider:CHRISTOPHER VARGAS MD Location:[facility] Appointment Type:[facility] Future Scheduled Tests Laboratory* Lipid Profile 02/18/22 * Complete Metabolic Panel 02/18/22 [facility] [employer] note* Diagnosis Screening for diabetes mellitus- Primary Encounter for lipid screening for cardiovascular disease Screening for lipoid disorders Encounter for wellness examination in adult Lumbar radiculopathy Thoracic or lumbosacral neuritis or radiculitis, unspecified Other depression Encounter for screening mammogram for malignant neoplasm of breast Other screening mammogram [facility] [place] [facility]* Diagnosis Leukocytosis, unspecified type- Primary documented in this encounter [facility] note* Diagnosis moderate depression Moderate anxiety documented in this encounter [facility] note* Diagnosis Lumbar radiculopathy- Primary Thoracic or lumbosacral neuritis or radiculitis, unspecified Chronic midline low back pain without sciatica Encounter for smoking cessation counseling Counseling on substance use and abuse [facility] Diagnosis Lumbar radiculopathy Thoracic or lumbosacral neuritis or radiculitis, unspecified documented in this encounter [facility] course Narrative No data available for this section [facility] Hospital Discharge instructions No data available for this section [facility] Progress note No data available for this section [facility] Reason for referral (narrative)* Diagnostic Procedure Only (Routine) - Authorized Specialty Diagnoses / Procedures Referred By Mike malone Referred To Contact [facility] Diagnoses Encounter for screening mammogram for malignant neoplasm of breast Procedures HENRI SCREENING SCREENING MAMMOGRAPHY BI 2-VIEW BREAST INC CAD Meagan Meléndez APRN.PREPARATION PLANT REPAIRER [address] [place] [id number] [facility] [address] [place] [address] Referral ID Status Reason Start Date Expiration Date Visits Requested Visits Authorized [id number] Authorized Auto-Generat ed Referral 09/13/2022 10/13/2023 1 1 * Transition of Care (Routine) - Ref Not Required Specialty Diagnoses / Procedures Referred By Contac t Referred To Contact Orthopedics Diagnoses Lumbar radiculopathy Procedures CONSULT PANEL TO ORTHOPAEDICS Meagan Meléndez APRN.CNP [address] [place] [address] Taina Gutierrez [address] [address] Referral ID Status Reason Start Date Expiration Date Visits Requested Visits Authorized [id number] Ref Not Required PCP Requested Referral 09/13/2022 09/13/2023 1 1 [facility] Summary Purpose Family History No Family History Records FoundNo Family History Records Found Advance Directives No Advanced Directives Records FoundNo Advanced Directives Records Found Reason for Referral Specialty Diagnoses / Procedures Referred By Contac t Referred To Contact Orthopedics Diagnoses Lumbar radiculopathy Chronic midline low back pain without sciatica Procedures CONSULT TO ORTHOPAEDICS Meagan Meléndez APRN.CNP [address] [place] [address] Taina Gutierrez [address] [address] Referral ID Status Reason Start Date Expiration Date Visits Requested Visits Authorized [id number] Ref Not Required PCP Requested Referral 06/20/2023 06/19/2024 1 1 Specialty Diagnoses / Procedures Referred By Contac t Referred To Contact XR IMAGING Diagnoses Lumbar radiculopathy Procedures XR LUMBAR MOTION 4V AP/LAT/ FLEX/EXT RADEX SPINE LUMBOSACRAL MINIMUM 4 VIEWS Meagan Meléndez APRN.PREPARATION PLANT REPAIRER [address] [place] [address] [id number] Referral ID Status Reason Start Date Expiration Date V isits Requested Visits Authorized [id number] Closed Auto-Generate d Referral 06/20/2023 07/19/2024 1 1 Additional Source Comments Source Comments (unrecognize d section and content) In the event this informatio n is protected by the Federal Confidentiality of Alcohol and Drug Abuse Patient Records regulations: The Federal rules restrict any use of the information to criminally investigate or prosecute any alcohol or drug abuse patient.[facility] the event this information is protected by the Federal Confidentiality of Alcohol and Drug Abuse Patient Records regulations: The Federal rules restrict any use of the information to criminally investigate or prosecute any alcohol or drug abuse patient.[facility] the event this information is protected by the Federal Confidentiality of Alcohol and Drug Abuse Patient Records regulations: The Federal rules restrict any use of the information to criminally investigate or prosecute any alcohol or drug abuse patient.[facility] the event this information is protected by the Federal Confidentiality of Alcohol and Drug Abuse Patient Records regulations: The Federal rules restrict any use of the information to criminally investigate or prosecute any alcohol or drug abuse patient.[facility] the event this information is protected by the Federal Confidentiality of Alcohol and Drug Abuse Patient Records regulations: The Federal rules restrict any use of the information to criminally investigate or prosecute any alcohol or drug abuse patient.[facility] the event this information is protected by the Federal Confidentiality of Alcohol and Drug Abuse Patient Records regulations: The Federal rules restrict any use of the information to criminally investigate or prosecute any alcohol or drug abuse patient.[facility] the event this information is protected by the Federal Confidentiality of Alcohol and Drug Abuse Patient Records regulations: The Federal rules restrict any use of the information to criminally investigate or prosecute any alcohol or drug abuse patient.[facility] Reason for Visit (unrecogniz ed section and content) Reason Comments Results Reason Onset Date Comments Refill Request 11/03/2022 Reason Comments Back Pain Low back pain X 1 mo nth Reason Onset Date Comments Refill Request 07/15/2023 Care Teams (unrecognized sec tion and content) Pediatric Physical Therapy Assistant Relationship Specialty Start Date End Date Meagan Meléndez APRN.PREPARATION PLANT REPAIRER [address] [place], [place] [phone] PCP - General Family Medicine 09/13/22 Pediatric Physical Therapy Assistant Relationship Specialty Start Date End Date Meagan Meléndez APRN.PREPARATION PLANT REPAIRER [address] [place], [place] [phone] PCP - General Family Medicine 09/13/22 Pediatric Physical Therapy Assistant Relationship Specialty Start Date End Date Meagan Meléndez APRN.PREPARATION PLANT REPAIRER [address] [place], [place] [phone] PCP - General Family Medicine 09/13/22 Pediatric Physical Therapy Assistant Relationship Specialty Start Date End Date Meagan Meléndez APRN.PREPARATION PLANT REPAIRER [address] [place], [place] [id number] PCP - General Family Medicine 09/13/22 Pediatric Physical Therapy Assistant Relationship Specialty Start Date End Date Meagan Meléndez APRN.PREPARATION PLANT REPAIRER [address] [place] [address] PCP - General Family Medicine 09/13/22 Pediatric Physical Therapy Assistant Relationship Specialty Start Date End Date Meagan Meléndez APRN.PREPARATION PLANT REPAIRER [address] [place] [address] PCP - [facility] Family Medicine 09/13/22 INFORMATION SOURCE (unrecogn ized section and content) DATE CREATED AUTHOR AUTHOR'S AMBREEN ATSEAN 07/17/2023 [facility] FOR RECORDS PERTAINING TO PATIENTS WHO ARE [...] BE BASED ON THE PRIMARY CLINICAL RECORDS. [facility]. provides no warranty or guarantee of the accuracy or completeness of information in this document.
--- NOTE | 2023-07-29 13:18 | OP.PCM_ITS ---
Problems Associated Problem List Diagnoses (1) Menorrhagia: Report of Operation Date of Procedure: 07/29/23 Pre-Operative Diagnosis: menorrhagia Post-Operative Diagnosis: menorrhagia Surgery/Procedure Performed:: hysteroscopy dilation and curettage, angelika endometrial ablation Description of Surgical Findings:: normal uterus, vagina, and cervix. Surgeon: Tati Alvarez sign language translator: None Type of Anesthesia: MAC and Topical Anesth Specimen's removed: endometrial curettings Drains: none Estimated Blood Loss (mL): 5cc Description of Procedure: Patient was prepped and draped in a normal sterile fashion under MAC anesthesia. A weighted speculum was placed in the vagina and the anterior lip of the cervix was grasped with a single-tooth tenaculum. A paracervical block was placed with 1% lidocaine. Cervix was progressively dilated to allow passage of a 5 mm hysteroscope. The lining was fully visualized and noted to have a normal appearing cavity without masses or polyps . The Uterine sounded to 8 cm. Curettage was performed and the specimen was sent to pathology. The angelika device was inserted into the uterus and all safety checks were passed. The burn cycle took place for 200 seconds. The device was removed. All instruments were removed from the vagina and excellent hemostasis was noted. Patient was awoken and taken to recovery in stable condition. Admit VTE Documentation VTE Present on Admission: No VTE Mechan Device Prophylaxis: SCD's VTE Pharm Prophylaxis ordered?: No Multi Select Codes Urinary/Genital Urinary/Genital CPT Codes: 08462 Non-ob D&C and 58789 Angelika/Novasure
== END 2023-07-26 15:53 | disposition home or self-care (01) ==
LOC: SDC 14:27 → AC 14:27
PROVIDERS: Anesthesiology; PCP Nurse Practitioner Family; Referring Provider Obstetrics & Gynecology; Visit Provider Obstetrics & Gynecology
PROC: 0U5B8ZZ Destruction of Endometrium, Via Natural or Artificial Opening Endoscopic (ICD-10-PCS; CPT 58558; principal; 2023-07-26 14:25)
DX: N85.8 Other specified noninflammatory disorders of uterus (principal); N92.0 Excessive and frequent menstruation with regular cycle; F41.9 Anxiety disorder, unspecified; F32.A Depression, unspecified; F17.200 Nicotine dependence, unspecified, uncomplicated; Z79.899 Other long term (current) drug therapy
CPT/HCPCS: 58558; 58563; 00952; 36415; 81025; 85027; 86850; 86900; 86901; 88305; J7120; J2405

== ENCOUNTER 2024-01-17 12:06 | Emergency (ER) | payer MEDICAID, SELFPAY ==
[2024-01-17] VITALS (8 sets, daily range): BP systolic 98–109; BP diastolic 54–75; PULSE 71–99; RESP 18–25; TEMP 36.1–36.6; O2SAT 96–99; BMI 28.1
--- NOTE | 2024-01-17 12:17 | EKG12_ITS ---
Test Reason : CP Blood Pressure : / mmHG Vent. Rate : 094 BPM Atrial Rate : 094 BPM P-R Int : 124 ms QRS Dur : 092 ms QT Int : 380 ms P-R-T Axes : 046 006 019 degrees QTc Int : 475 ms Normal sinus rhythm Septal infarct , age undetermined Abnormal ECG Confirmed by DIANN BARKER, CJ ([id number]), script editor GERONIMO MICHAEL ([id number]) on 01/19/2024 1:43:05 PM Referred By: Confirmed By:CJ TIDWELL MD
[2024-01-17 12:43] LABS: Absolute Lymphocyte Count 3.15 X10^3/uL (0.83-4.51); Absolute Neutrophil Count 7.8 X10^3/uL (2.0-7.7); Basophil% 0.8 % (0-1); Eosinophil# 0.49 X10^3/uL; Eosinophils% 3.8 % (0-5); Hematocrit 40.7 % (37-47); Hemoglobin 14.1 g/dL (12.0-15.0); Lymphocyte # 3.15 X10^3/ul (0.83-4.51); Lymphocyte % 24.4 % (19-41); Mean Corp Hgb Conc 34.6 g/dL (32-36); Mean Corpuscular Hgb 31.6 pg (27.0-32.0); Mean Corpuscular Volume 91.3 fL (81-99); Mean Platelet Vol. 9.2 fl (6.2-12.0); Monocyte# 1.26 X10^3/uL; Monocyte% 9.8 % (0-10); NRBC Flagged by Analyzer 0 % (0-5); Neutrophil % 60.3 % (47-70); Platelet Count 289 K/mm3 (150-450); RBC Distribution Width CV 11.9 % (11.6-14.6); RBC Distribution Width SD 39.7 fl (35.1-43.9); Red Blood Count 4.46 M/mm3 (4.2-5.4); White Blood Count 12.9 K/mm3 (4.4-11.0)
[2024-01-17 13:00] LABS: Anion Gap 4 (5-15); BUN 8 mg/dL (7-18); Calcium,Total 9.4 mg/dL (8.5-10.1); Chloride 104 mmol/L (98-107); Creatinine, Serum 0.67 mg/dL (0.55-1.02); EST Glomerular Filtration Rate 101 mL/min (>60); Est Glom Filt Rate - Afr Amer 123 mL/min (>60); Estimated Creatinine Clearance 104.75 ml/min; Glucose 106 mg/dL (74-106); Sodium Level 137 mmol/L (136-145); Troponin-I HS (w/2H Reflex) 4 pg/mL (3.0-54.0)
--- NOTE | 2024-01-17 13:10 | RAD_ITS ---
STUDY: X-RAY CHEST REASON FOR EXAM: Female, 43 years old. Chest pain. TECHNIQUE: Single frontal view of the chest. COMPARISON: January 13, 2020 FINDINGS: Low volume inspiration with bibasilar atelectasis. There is no demonstrated pleural abnormality. Normal size heart. Normal mediastinum and xenia. Normal visualized pulmonary arteries. Normal visualized aortic arch and descending thoracic aorta. No abnormality of the visualized soft tissue structures of the upper abdomen. RAD/Chest 1 View (Portable) IMPRESSION: Low volume inspiration with atelectasis. No acute finding. Electronically Signed: Arjun Zaman MD at 13:21 EDT ,
--- NOTE | 2024-01-17 14:17 | ED.VIS.CHEST ---
HPI History of Present Illness Chief Complaint: Chest Pain Narrative Narrative: 43-year-old female who denies significant past medical history except for occasionally smokes cigarettes, 3 to 4-day presents with chest pain that she has had intermittently for the last month. She states it lasts 10 to 15 minutes at a time. No recent nausea or vomiting. Her pain worsened last night worse mainly on the left side. She was unable to lay on her left side. She denies any fevers or chills, no other symptoms. It has been relatively constant since last evening. She now describes pleuritic chest pain as well. The pain went to her left shoulder but she denies any diaphoresis. No leg swelling. [facility] Medical History Wears glasses Wears dentures Gastric reflux Smoker Anxiety Depression Home Medications ?Medication ?Instructions ?Recorded ?Last Taken ?Type gabapentin 300 mg capsule 100 mg PO QHS 06/18/15 Unknown History fluoxetine 40 mg capsule (Prozac) 40 mg PO QPM 09/16/22 Unknown History black cohosh 200 mg capsule 200 mg PO DAILY 07/07/23 Unknown History bupropion HCl 150 mg 24 hr tablet, 150 mg PO DAILY 07/07/23 Unknown History extended release multivitamin (One Daily 1 tab PO DAILY 07/07/23 Unknown History Multivitamin tablet) clonidine HCl 0.1 mg tablet 0.1 mg PO QHS #30 tabs 08/01/23 Unknown Rx apixaban 5 mg (74 tabs) tablets in See Rx Instructions PO .COMPLEX 01/17/24 Unknown Rx a dose pack (Eliquis DVT-PE Treat #74 tabs 30D Start) oxycodone 5 mg tablet 5 mg PO Q6H PRN pain 3 days #12 01/17/24 Unknown Rx tabs Allergy/AdvReac Type Severity Reaction Status Date / Time No Known Allergies Allergy Verified 01/17/24 12:07 Family History Other Liver cancer Throat cancer Surgical History H/O dilation and curettage S/P cholecystectomy History of salpingectomy Social History adopted: No household members: significant other and children current occupational status: employed current occupation: [employer] current occupational exposures/hazards: No pets and animals: Yes pets and animals: guinea pig(s) sexually active: Yes Smoking Status: Current every day smoker tobacco type: cigarettes alcohol intake: never substance use type: does not use caffeine: Yes Type: coffee seatbelt use: always do you feel safe at home: Yes additional social history: Jam Franco: stay's at home watching her 11yr ROS ROS ED ROS Narrative Constitutional: No fever, no chills. HEENT: No sore throat. No neck pain. No loss of vision. No rhinorrhea. Cardiovascular: Positive left-sided chest pain radiating to left shoulder. Left-sided pleuritic pain since yesterday.. No palpitations. No pedal edema. Respiratory: No cough, no shortness of breath. Abdominal: No abdominal pain. No nausea. No vomiting. Genitourinary: No dysuria. No hematuria. Musculoskeletal: No myalgias. No arthralgias. Neurologic: No headaches. No dizziness. No lightheadedness. Skin: No rash. No change in color. Psychiatric: No depression. No anxiety. EXAM Physical Exam Narrative Exam Narrative: Afebrile. Vital signs noted. HEENT examination shows PERRL, EOMI. Neck soft and supple. Cardiovascular examination regular rate and rhythm. Lungs clear to auscultation bilaterally. Abdomen soft nontender with normal active bowel sounds. No rebound or guarding. Neurological examination nonfocal and nonlateralizing. Const Vital Signs: 01/17/24 12:07 01/17/24 13:18 01/17/24 13:18 Temperature 96.9 F L Temperature Source Temporal Pulse Rate 99 71 Respiratory Rate 18 18 Blood Pressure 109/74 98/58 L Blood Pressure Mean 85 71 Pulse Ox 96 97 98 Oxygen Delivery Method Room Air Room Air Room Air 01/17/24 14:00 01/17/24 15:00 01/17/24 16:00 Temperature Temperature Source Pulse Rate 90 86 93 Respiratory Rate 25 H 19 H 18 Blood Pressure 109/75 100/60 99/54 L Blood Pressure Mean 86 73 69 Pulse Ox 97 96 Oxygen Delivery Method Room Air 01/17/24 17:00 01/17/24 18:00 Temperature Temperature Source Pulse Rate 88 88 Respiratory Rate 18 19 H Blood Pressure 106/67 107/71 Blood Pressure Mean 80 83 Pulse Ox 98 98 Oxygen Delivery Method Room Air Room Air Heart Score History: Slightly/Non-Suspicious ECG: Normal Age: </= 45 years Risk Factors: 1 or 2 Risk Factors Troponin: </= Normal Limit Score: 1 MDM MDM MDM Narrative Medical decision making narrative: Differential diagnosis includes but not limited to ACS versus pneumonia versus pneumothorax versus pulmonary embolism. I have low suspicion for pneumothorax or pneumonia because the history and physical does not support this. ED protocol orders were instituted by RN. EKG obtained and interpreted by myself independently as normal sinus rhythm at 94 bpm without ectopy or acute ST changes. No STEMI. Chest x-ray obtained and interpreted by myself independently shows no evidence of pneumothorax or pneumonia. I reviewed the radiology report which confirms my independent interpretation. They comment on bibasilar atelectasis. I reviewed the CBC and she has slightly elevated white count 12.9 which I think is nonspecific, hemoglobin normal at 14.1 with hematocrit 40.7, platelet count normal at 289. Electrolyte panel is remarkable for glucose of 106 with an anion gap low at 4. Normal sodium and normal potassium. Initial high-sensitivity troponin is 4. Repeat high-sensitivity troponin is less than 3. Hence, I do not think that she needs to be admitted for ACS and that she has been ruled out with biomarkers. Although she is not tachycardic or hypoxic, I did add a D-dimer given her left-sided pleuritic chest pain. Her D-dimer has returned and is elevated at 2.14. I did add the CTA of the chest. Initially, she requested pain medications. I will not give Toradol because of the elevated D-dimer. She was given Tylenol initially. I reviewed the radiology report of the CTA of the chest and received a call from the radiologist. She has multiple bilateral pulmonary emboli in the subsegmental areas. As she is hemodynamically stable and is satting 98% on room air, I do not feel that she requires observation or admission currently. I discussed with her the use of a blood thinner and told her that she was at risk for increased bleeding both intracranially and in the GI system. She was told not to take aspirin or NSAIDs. She has a follow-up appointment with her primary care provider in 2 days. She was given a note to be off work for today and tomorrow. At this point in time, I do not feel she would benefit from observation or admission. She was given a prescription for a few oxycodone tablets and will continue Tylenol [id number]. Return instructions to the emergency department were reviewed. Disposition is discharged home in stable condition. Lab Data Labs: Laboratory Results - last 24 hr 01/17/24 01/17/24 01/17/24 12:35 14:30 14:45 WBC 12.9 H RBC 4.46 Hgb 14.1 Hct 40.7 MCV 91.3 MCH 31.6 MCHC 34.6 RDW Std Deviation 39.7 RDW Coeff of Ramiro 11.9 Plt Count 289 MPV 9.2 Immature Gran % (Auto) 0.900 Neut % (Auto) 60.3 Lymph % (Auto) 24.4 [place] % (Auto) 9.8 Eos % (Auto) 3.8 Baso % (Auto) 0.8 Absolute Neuts (auto) 7.8 H Absolute Lymphs (auto) 3.15 Nucleated RBC % 0 D-Dimer Quant (PE/DVT) 2.14 H* Sodium 137 Potassium 4.0 Chloride 104 Carbon Dioxide 29.0 Anion Gap 4 L BUN 8 Creatinine 0.67 Estim Creat Clear Calc 104.75 Est GFR (MDRD) Af Amer 123 Est GFR (MDRD) Non-Af 101 BUN/Creatinine Ratio 12.0 Glucose 106 Calcium 9.4 Troponin I High Sens 4 < 3 L Radiography Chest X-Ray - ED: Read by ED Physician and Read by Radiologist Diagnostic Testing: Clinical Impression(s) from Imaging Studies Chest X-Ray 01/17/24 13:10 IMPRESSION: Low volume inspiration with atelectasis. No acute finding. Electronically Signed: Arjun Zaman MD at 13:21 EDT , Chest CTA 01/17/24 15:35 IMPRESSION: Multiple subsegmental pulmonary emboli bilaterally.. No evidence for saddle embolus or definitive evidence for right ventricular strain Tiny left pleural effusion and compressive atelectasis left lower lobe possibly due to small pulmonary Electronically Signed: Doug Tracey MD at 18:30 EDT , Discharge Plan Triage Chief Complaint: Chest Pain ED Provider: Francisco Javier Mon Dx/Rx/DC Orders Clinical Impression: Chest pain, Pulmonary emboli Instructions: Pulmonary Embolism, Quitting Smoking, Embolism Pulmonary Dc, ED Chest Pain, Uncertain Cause Prescriptions: New Eliquis DVT-PE Treat 30D Start 5 mg (74 tabs) tablets,dose pack See Rx Instructions .ROUTE .COMPLEX Qty: 74 0RF Rx Instructions: orally per package directions oxycodone 5 mg tablet 5 mg PO Q6H PRN (Reason: pain) 3 Days Qty: 12 0RF No Action fluoxetine [Prozac] 40 mg capsule 40 mg PO QPM gabapentin 300 MG capsule 100 mg PO QHS multivitamin [One Daily Multivitamin] Tablet 1 tab PO DAILY black cohosh 200 mg capsule 200 mg PO DAILY bupropion HCl 150 mg tablet extended release 24 hr 150 mg PO DAILY Patient Comments: take 1 tablet by mouth once daily clonidine HCl 0.1 mg tablet 0.1 mg PO QHS Qty: 30 10RF Stand Alone Forms: Work / School Excuse Primary Care Provider: Meagan Meléndez Referrals: Meagan Meléndez, SERVICE DISMANTLER-C [Primary Care Provider] - 01/19/24 Activity Restrictions/Additional Instructions: Take the Eliquis as directed. Follow-up with your primary care provider as scheduled in 2 days. You are at risk for increased bleeding while taking Eliquis. Do not take things like ibuprofen or aspirin as this increases your chance for ulcers and bleeding. Return with increased pain, new or worsening symptoms. Print Language: Romanian Disposition Disposition: Home, Self Care
[2024-01-17 14:39] LABS: Reflex Troponin-HS? (from REC) Y
[2024-01-17 15:10] LABS: Troponin-I HS < 3 pg/mL (3.0-54.0)
[2024-01-17 15:35] LABS: D-Dimer Quantitative (DVT/PE) 2.14 FEU/ug/m (0.27-0.49)
--- NOTE | 2024-01-17 15:35 | CT_ITS ---
We are attempting to reach an attending provider to discuss findings. An addendum with communication details will be sent when the communication is complete. STUDY: CTA CHEST REASON FOR EXAM: Female, 43 years old. elevated D dimer RADIATION DOSAGE (If Supplied By Facility): CTDIvol = ( 9.21 ) mGy, DLP = ( 406.36 ) mGycm TECHNIQUE: The examination was performed with the intravenous administration of IV 100mL Isovue-370. Post-processing of the angiographic images was performed, with multiplanar reformation and 3D reconstruction. Individualized dose optimization techniques were used for this CT. COMPARISON: None. FINDINGS: Normal enhancement of the main pulmonary artery and right and left pulmonary arteries.. There are small intraluminal filling defects within the subsegmental vessels of the right lower lobe, right upper lobe,, left lower lobe and lingula. . There is no saddle embolus or evidence for right ventricular strain Normal thoracic aorta and visualized great vessels. There is no demonstrated aortic dissection. Normal heart and pericardium. Normal mediastinum. Normal hilar regions. Normal visualized trachea and bronchi. The lungs are well expanded. There is atelectasis within the dependent portion of both lower lobes There is a tiny left pleural effusion and mild compressive atelectasis in left lower lobe Normal chest wall structures. Normal osseous structures. Liver is enlarged and fatty infiltrated. Gallbladder not visualized consistent with cholecystectomy. CT/CTA Chest W/WO Contrast IMPRESSION: Multiple subsegmental pulmonary emboli bilaterally.. No evidence for saddle embolus or definitive evidence for right ventricular strain Tiny left pleural effusion and compressive atelectasis left lower lobe possibly due to small pulmonary Electronically Signed: Doug Tracey MD at 18:30 EDT ,
[2024-01-17] MEDS: Acetaminophen 325 MG Tablet 650 MG PO (17:54)
[2024-01-17] MEDS: APIXABAN 5 MG TABLET 10 MG PO (18:54)
== END 2024-01-17 19:00 | disposition home or self-care (01) ==
PROVIDERS: Emergency Provider Emergency Medicine; PCP Nurse Practitioner Family; Visit Provider Emergency Medicine
DX: I26.99 Other pulmonary embolism without acute cor pulmonale (principal); F17.210 Nicotine dependence, cigarettes, uncomplicated
CPT/HCPCS: 71045; 71275; 80048; 84484; 85025; 85379; 93005; 99283; Q9967; A4216

== ENCOUNTER → 2024-01-19 | Outpatient (CLI) | payer MEDICAID, SELFPAY ==
--- NOTE | 2024-01-19 13:06 | VDLE_ITS ---
Reason For Study: Pulmonary embolism RIGHT LEFT GSV is normal. CFV is compressible, spontaneous, phasic, CFV is compressible, spontaneous, phasic, competent, and demonstrates normal competent and demonstrates normal augmentation. augmentation. FV is compressible, spontaneous, phasic, competent and demonstrates normal augmentation. POP V is compressible, spontaneous, phasic, competent and demonstrates normal augmentation. T/P Trunk is compressible. PTV is compressible. RT PerV is compressible. Procedure This is a venous duplex using B-mode, color flow and spectral Doppler. Exam performed in department. A preliminary report was called and/or faxed to Meagan Meléndez BRASS MOLDER-C. VL/Venous Duplex US, Unilateral Interpretation Summary Deep veins of the right lower extremity are patent and compressible segmentally . There is no evidence of right lower extremity deep vein thrombosis. The right great sapheno us vein appears patent and compressible segmentally. Ordering Physician: Meagan Meléndez Referring Physician: Meagan Meléndez Performed By: Heydi Sharma RVT
== END | disposition home or self-care (01) ==
LOC: CVS 13:02
PROVIDERS: PCP Nurse Practitioner Family; Referring Provider Nurse Practitioner Family; Visit Provider Nurse Practitioner Family
DX: I26.99 Other pulmonary embolism without acute cor pulmonale (principal)
CPT/HCPCS: 93971

== ENCOUNTER 2024-01-31 17:13 | Emergency (ER) | payer MEDICAID, SELFPAY ==
[2024-01-31 17:13] VITALS: BP 114/68; PULSE 91; RESP 14; TEMP 36.2; O2SAT 96; BMI 35.4
[2024-01-31 18:33] LABS: Absolute Lymphocyte Count 2.88 X10^3/uL (0.83-4.51); Absolute Neutrophil Count 3.2 X10^3/uL (2.0-7.7); Basophil# 0.06 X10^3/uL; Basophil% 0.9 % (0-1); Eosinophil# 0.34 X10^3/uL; Eosinophils% 4.8 % (0-5); Hematocrit 37.5 % (37-47); Hemoglobin 12.9 g/dL (12.0-15.0); Lymphocyte # 2.88 X10^3/ul (0.83-4.51); Mean Corp Hgb Conc 34.4 g/dL (32-36); Mean Corpuscular Hgb 31.4 pg (27.0-32.0); Mean Corpuscular Volume 91.2 fL (81-99); Mean Platelet Vol. 8.9 fl (6.2-12.0); Monocyte# 0.46 X10^3/uL; Monocyte% 6.6 % (0-10); NRBC Flagged by Analyzer 0 % (0-5); Neutrophil # 3.22 X10^3/uL (2.7-7.7); Neutrophil % 45.8 % (47-70); Platelet Count 392 K/mm3 (150-450); RBC Distribution Width CV 11.7 % (11.6-14.6); RBC Distribution Width SD 38.9 fl (35.1-43.9); Red Blood Count 4.11 M/mm3 (4.2-5.4)
--- NOTE | 2024-01-31 18:35 | RAD_ITS ---
STUDY: X-RAY CHEST REASON FOR EXAM: Female, 43 years old. chest pain TECHNIQUE: AP portable COMPARISON: January 17, 2024 FINDINGS: The lungs are clear and expanded. There is no demonstrated pleural abnormality. Normal size heart. Normal mediastinum and xenia. Normal visualized pulmonary arteries. Normal visualized aortic arch and descending thoracic aorta. Normal visualized thoracic spine. Normal visualized ribs, clavicles, and shoulders. There is no demonstrated abnormality of the visualized soft tissue structures of the upper abdomen. RAD/Chest 1 View (Portable) IMPRESSION: Normal x-ray examination of the chest. Electronically Signed: Doug Tracey MD at 19:06 EDT ,
[2024-01-31 18:51] LABS: Anion Gap 6 (5-15); BUN 9 mg/dL (7-18); BUN/Creat Ratio 12.1 RATIO (10-20); Calcium,Total 9.2 mg/dL (8.5-10.1); Chloride 104 mmol/L (98-107); Creatinine, Serum 0.74 mg/dL (0.55-1.02); EST Glomerular Filtration Rate 90 mL/min (>60); Est Glom Filt Rate - Afr Amer 108 mL/min (>60); Estimated Creatinine Clearance 106.55 ml/min; Glucose 86 mg/dL (74-106); Potassium 3.6 mmol/L (3.5-5.1); Sodium Level 141 mmol/L (136-145); Troponin-I HS (w/2H Reflex) 3 pg/mL (3.0-54.0)
[2024-01-31 19:00] VITALS: BP 105/75; PULSE 80; RESP 14; O2SAT 100
--- NOTE | 2024-01-31 19:42 | EDS_ITS ---
HPI History of Present Illness Chief Complaint: Chest Pain Informant: patient Onset/Context/Timing Onset: Yesterday Activity at onset: sudden and light activity Timing: Intermittent Quality: Positive for Tightness (Squeezing) Location: Substernal Worsened By: Nothing Relieved By: Nothing Associated Symptoms: Positive for Acid Reflux; Negative for Nausea, Vomiting, Diaphoresis, Dyspnea, Cough, Fever, Lightheadedness or Palpitations Narrative Narrative: Patient presents with chest pain that has been intermittent since yesterday. Patient states that it comes on suddenly. Patient states it comes on with light activity. Patient describes it as tightness and squeezing. Patient states it also made her feel clammy. Patient states it is over the substernal area. Patient states nothing makes it better and nothing makes it worse. Patient was seen here on 01/17/2024 and was diagnosed with pulmonary embolism. Patient has been taking her Eliquis as prescribed. Patient denies any fevers or chills. Patient states she quit smoking when she was diagnosed with the pulmonary embolism. CVD Risk Factors: Negative for Hypertension, Diabetes, Hypercholesterolemia, Family History 1' </=55 or Smoking PE Risk Factors: Positive for Prior DVT or PE; Negative for Recent Travel/Surgery, Recent Immobilization, Cancer or OCP + Smoking + >/=35 PFSH [facility] Medical History Wears glasses Wears dentures Gastric reflux Smoker Anxiety Depression Home Medications ?Medication ?Instructions ?Recorded ?Last Taken ?Type multivitamin (One Daily 1 tab PO DAILY 07/07/23 Unknown History Multivitamin tablet) apixaban 5 mg (74 tabs) tablets in See Rx Instructions PO .COMPLEX 01/17/24 Unknown Rx a dose pack (Eliquis DVT-PE Treat #74 tabs 30D Start) fluoxetine 20 mg capsule (Prozac) 20 mg PO .COMPLEX #30 caps 01/25/24 Unknown Rx venlafaxine 37.5 mg 37.5 mg PO QDAY #30 caps 01/25/24 Unknown Rx capsule,extended release 24 hr (Effexor XR) Allergy/AdvReac Type Severity Reaction Status Date / Time No Known Allergies Allergy Verified 01/31/24 17:14 Family History Other Liver cancer Throat cancer Surgical History H/O dilation and curettage S/P cholecystectomy History of salpingectomy Social History adopted: No household members: significant other and children current occupational status: employed current occupation: [employer] current occupational exposures/hazards: No pets and animals: Yes pets and animals: guinea pig(s) sexually active: Yes Smoking Status: Former smoker alcohol intake: never substance use type: does not use caffeine: Yes Type: coffee seatbelt use: always do you feel safe at home: Yes additional social history: Jam Franco: stay's at home watching her 11yr ROS ROS ED Constitutional Constitutional ED: Denies chills or fever(s) Eyes Eyes: Denies blurry vision or change in vision ENT ENT ED: Denies rhinorrhea or sore throat Cardiovascular Cardiovascular: Reports chest pain; Denies palpitations Respiratory/Chest Respiratory/Chest: Denies cough or dyspnea Gastrointestinal Gastrointestinal: Denies nausea or vomiting Genitourinary Genitourinary ED: Denies dysuria or hematuria Musculoskeletal Musculoskeletal: Denies back pain or neck pain Integumentary Denies abscess or rash Neurologic Neurologic: Denies headache(s) or weakness Allergic/Immunologic Allergic/Immunologic ED: Denies mouth swelling or urticaria EXAM Physical Exam Const Vital Signs: 01/31/24 17:13 01/31/24 19:03 Temperature 97.1 F L Temperature Source Temporal Pulse Rate 91 Respiratory Rate 14 Respiratory Effort Normal Non-Labored Blood Pressure 114/68 Blood Pressure Mean 83 Pulse Ox 96 Oxygen Delivery Method Room Air Positive well nourished and well developed General Appearance ED: well developed and NAD HEENT Reports moist mucous membranes Neck supple and no JVD Resp normal respiratory effort and clear to auscultation bilaterally Cardio regular rate and regular rhythm GI soft to palpation, non-tender and non-distended Extremity normal to inspection General Extremety ED: Negative for edema or tenderness General Extremity: Negative for edema Neuro oriented x3, CN's II-XII intact bilaterally and no sensory deficits noted Sensorium / Orientation: awake and alert Motor Exam: strength 5/5 throughout Psych mental status grossly normal Heart Score History: Slightly/Non-Suspicious ECG: Normal Age: </= 45 years Risk Factors: No Risk Factors Troponin: </= Normal Limit Score: 0 MDM MDM MDM Narrative Medical decision making narrative: Differential diagnosis includes cardiac dysrhythmia, cardiac ischemia, pneumonia, congestive heart failure, musculoskeletal pain, gastroesophageal reflux disease, and anxiety. EKG will be obtained to assess for cardiac dysrhythmia and cardiac ischemia. Chest x-ray will be obtained to assess for pneumonia and congestive heart failure. CBC will be obtained to assess for leukocytosis and anemia. Basic metabolic profile will be obtained to assess for electrolyte abnormality and renal function. High-sensitivity troponin will be obtained to assess for cardiac ischemia. 2-hour repeat high-sensitivity troponin will be obtained to assess for ongoing cardiac ischemia. Since the patient was recently diagnosed with a pulmonary embolism 2 weeks ago and is currently taking her anticoagulant as prescribed, I do not feel the patient needs a CTA of the chest at this time. Since her vital signs are completely normal and she is not having any labored breathing or requiring oxygen, the treatment would not change. It is likely that the pulmonary emboli would still be present on CTA with since her symptoms and vital signs have been stable, it is unlikely that the pulmonary emboli have gotten larger or have become more central. Lab Data Attestation: I reviewed the patient's lab results. Lab results narrative: CBC was reviewed and was within normal limits. Basic metabolic profile was reviewed and was within normal limits. High-sensitivity troponin was reviewed and was normal at 3. 2-hour repeat high-sensitivity troponin was reviewed and was less than 3. Labs: Laboratory Results - last 24 hr 01/31/24 18:27 WBC 7.0 RBC 4.11 L Hgb 12.9 Hct 37.5 MCV 91.2 MCH 31.4 MCHC 34.4 RDW Std Deviation 38.9 RDW Coeff of Ramiro 11.7 Plt Count 392 MPV 8.9 Immature Gran % (Auto) 0.900 Neut % (Auto) 45.8 L Lymph % (Auto) 41.0 [place] % (Auto) 6.6 Eos % (Auto) 4.8 Baso % (Auto) 0.9 Absolute Neuts (auto) 3.2 Absolute Lymphs (auto) 2.88 Nucleated RBC % 0 Sodium 141 Potassium 3.6 Chloride 104 Carbon Dioxide 31.0 Anion Gap 6 BUN 9 Creatinine 0.74 Estim Creat Clear Calc 106.55 Est GFR (MDRD) Af Amer 108 Est GFR (MDRD) Non-Af 90 BUN/Creatinine Ratio 12.1 Glucose 86 Calcium 9.2 Troponin I High Sens 3 Radiography Chest X-Ray - ED: 1 View, Read by ED Physician, Read by Radiologist and No Acute Disease Diagnostic Testing: Clinical Impression(s) from Imaging Studies Chest X-Ray 01/31/24 18:35 IMPRESSION: Normal x-ray examination of the chest. Electronically Signed: Doug Tracey MD at 19:06 EDT , Portable 1 view chest x-ray was obtained. On my independent interpretation, lung la are clear. There is normal cardiac silhouette. Bony thorax is normal. There is no acute process noted. Radiologist also interpreted the x- ray and agrees. EKG Initial EKG: Attestation: I personally reviewed and interpreted this EKG as follows: Interpretation: Sinus Rhythm (78) and No Acute Injury Pattern Comments: EKG was obtained. On my independent interpretation, it showed a normal sinus rhythm with a rate of 78. IL interval, QRS interval, and QTc intervals were all normal. [place] was normal. There are no acute ST or T wave changes. Prior EKG tracings: available for review Prior: Unchanged (01/17/2024) Treatment and Re-Evaluation :: Patient was advised of her findings. Patient has a HEART score of 0. Patient was advised that this is low risk for acute cardiac event. Patient was instructed to continue her Eliquis as prescribed. Patient was instructed to follow-up with her primary care physician in 5 to 7 days. Patient was instructed to continue Tylenol as needed for pain. Patient understood and was a greeable with the plan. All questions were answered. Discharge Plan Triage Chief Complaint: Chest Pain ED Provider: Chato Arndt Dx/Rx/DC Orders Clinical Impression: Chest pain, Pulmonary embolism Instructions: ED Chest Pain, Uncertain Cause Prescriptions: No Action venlafaxine [Effexor XR] 37.5 mg capsule,extended release 24hr 37.5 mg PO QDAY Qty: 30 1RF fluoxetine [Prozac] 20 mg capsule 20 mg PO .COMPLEX Qty: 30 1RF Rx Instructions: 20 mg orally every other day alternate with 40mg capsule, then daily X 1 week, then every other day X 1 week then stop; multivitamin [One Daily Multivitamin] Tablet 1 tab PO DAILY Eliquis DVT-PE Treat 30D Start 5 mg (74 tabs) tablets,dose pack See Rx Instructions .ROUTE .COMPLEX Qty: 74 0RF Rx Instructions: orally per package directions Primary Care Provider: Meagan Meléndez Referrals: Meagan Meléndez, SQUARING MACHINE OPERATOR-C [Primary Care Provider] - 5-7 Days Print Language: Spanish Disposition Disposition: Home, Self Care
[2024-01-31 20:31] LABS: Reflex Troponin-HS? (from REC) Y
[2024-01-31 21:00] VITALS: BP 117/70; PULSE 76; RESP 13; O2SAT 98
[2024-01-31 21:46] LABS: Troponin-I HS < 3 pg/mL (3.0-54.0)
[2024-01-31 22:16] VITALS: BP 116/64; PULSE 79; RESP 18; TEMP 36.7; O2SAT 100
== END 2024-01-31 22:17 | disposition home or self-care (01) ==
PROVIDERS: Emergency Provider Emergency Medicine; PCP Nurse Practitioner Family; Visit Provider Emergency Medicine
DX: I26.99 Other pulmonary embolism without acute cor pulmonale (principal); F41.9 Anxiety disorder, unspecified; F32.A Depression, unspecified; Z79.01 Long term (current) use of anticoagulants; Z79.899 Other long term (current) drug therapy; Z87.891 Personal history of nicotine dependence
CPT/HCPCS: 71045; 80048; 84484; 85025; 93005; 99284; A4216

== ENCOUNTER → 2024-03-19 | Outpatient (CLI) | payer MEDICAID, SELFPAY | END | disposition home or self-care (01) | LOC: LABSPEC 14:21 | PROVIDERS: Student in an Organized Health Care Education/Training Program; PCP Nurse Practitioner Family; Visit Provider Internal Medicine Gastroenterology | DX: Z00.00 Encounter for general adult medical examination without abnormal findings (principal) | CPT/HCPCS: 82653; 83630; 83993; 87506 ==

== ENCOUNTER 2024-03-28 12:33 | Day surgery (SDC) | payer MEDICAID, SELFPAY ==
[2024-03-28] VITALS (10 sets, daily range): BP systolic 83–124; BP diastolic 53–105; PULSE 72–87; RESP 16; TEMP 36.1–36.6; O2SAT 98–100; BMI 28.6
--- NOTE | 2024-03-28 13:17 | PRE.ANES_ITS ---
ASA Classification* ASA Classification ASA Classification: 2 Assessment & Plan Anesthesia* Anesthesia Assessment Anesthesia Assessment: Discussed sedation and/or anesthesia options, risks, benefits, and alternatives with patient/parents/legal guardian/POA. Questions invited. The patient/parents/legal guardian/POA seems to understand and agrees to proceed with anesthesia plan. Reviewed the physical assessment, medical history, allergy history and patient home medications list prior to surgery/procedure/anesthetic and documented any changes. Performed airway and anesthesia risk assessments. Anesthesia Type Anesthesia Type: MAC Anesthesia Focused Assessment* Temperature: 97.8 F Pulse Rate: 87 Blood Pressure: 103/82 Respiratory Rate: 16 Pulse Ox: 100 Airway Assessment Mouth opens: >3 cm Mallampati Score: II Focused Labs Anesthesia Preop lab: CBC WBC 7.0 K/mm3 (4.4-11.0) 01/31/24 18:27 RBC 4.11 M/mm3 (4.2-5.4) L 01/31/24 18:27 Hgb 12.9 g/dL (12.0-15.0) 01/31/24 18:27 Hct 37.5 % (37-47) 01/31/24 18:27 Plt Count 392 K/mm3 (150-450) 01/31/24 18:27 CHEMISTRY Potassium 3.6 mmol/L (3.5-5.1) 01/31/24 18:27 Sodium 141 mmol/L (136-145) 01/31/24 18:27 BUN 9 mg/dL (7-18) 01/31/24 18:27 Creatinine 0.74 mg/dL (0.55-1.02) 01/31/24 18:27 Glucose 86 mg/dL (74-106) 01/31/24 18:27 TSH 1.87 uIU/mL (0.358-3.74) 02/21/14 16:39 COAG Urine Test Negative Negative 07/26/23 13:10 Pre-Assessment Diagnosis/Proposed Procedure Planned Operative Procedure(s): COLONOSCOPY, EGD Anesthesia History Anesthesia History - sound effects technician: Anesthesia History - sound effects technician Hx Hospitalization No 03/26/24 11:59 Any Problems With Anesthesia No 03/26/24 11:59 Cholinesterase deficiency No 03/26/24 11:59 You/Your Family Experience No 03/26/24 11:59 fever (hyperthermia) with Relationship Recent Exposure to Contagious No 03/28/24 12:53 Disease Does patient have nerve No 03/26/24 11:59 stimulator Patient instructed to have device shut off --Does patient have Pacemaker No 03/28/24 12:53 or ICD? When Was Last Pacemaker Check QUESTION #4 FULL TEXT: You/Your Family Experience fever (hyperthermia) with Anesthesia Last Oral Intake Last Oral intake: Last Oral Intake NPO since 10:45 03/28/24 12:53 Meds taken in AM with sips of water? Meds patient instructed to take am of surgery PONV PONV - sound effects technician: PONV - sound effects technician Female Yes 03/26/24 11:59 HX of Motion Sickness No 03/26/24 11:59 HX of N/V After Surgery No 03/26/24 11:59 Non-Smoker Yes 03/26/24 11:59 Duration of Surgery greater No 03/26/24 11:59 than 60 minutes Number of Risk Factors 2 03/26/24 11:59 PONV Score Moderate Risk 03/26/24 11:59 Height & Weight Height & Weight: Anesthesia: Height & Weight Height 5 ft 4 in 03/28/24 12:53 Weight: 75.75 kg 03/28/24 12:53 Body Mass Index (BMI) 28.6 03/28/24 12:53 Respiratory Assessment Respiratory Assessment - sound effects technician: Respiratory Tract Infection Hx - sound effects technician Hx Respiratory Tract Infection No 03/26/24 11:59 STOP Sleep Apnea STOP Sleep Apnea - sound effects technician: STOP Sleep Apnea - sound effects technician Hx Hypertension No 03/26/24 11:59 Hx Sleep Apnea No 03/26/24 11:59 CPAP BIPAP Do you snore loudly (louder No 03/26/24 11:59 than talking or can be heard Do you often feel tired/ No 03/26/24 11:59 fatigued/ sleepy during daytime? Has anyone observed you stop No 03/26/24 11:59 breathing during sleep? STOP Results Negative 03/26/24 11:59 QUESTION #5 FULL TEXT : Do you snore loudly (louder than talking or can be heard through closed doors)? Tobacco Use History Tobacco Use History - sound effects technician: Tobacco Use History - sound effects technician Tobacco Use Smoking Status Former smoker 03/26/24 11:59 Hx Tobacco Use Yes 03/26/24 11:59 Years Smoking Packs Smoked per Day Smoking Cessation Date was Yes - quit smoking within 15 03/26/24 11:59 within the last 15 years years Hx Smoking Cessation Date 01/19/24 03/26/24 11:59 Hx Smoking Cessation Counseling Hematologic Medial History Hematologic Hx - sound effects technician: Hematologic Medical Hx - office services specialist Hx of Blood Transfusion No 03/26/24 11:59 Hx of Transfusion in last 3 No 03/26/24 11:59 Months Date of Last Transfusion (if within last 3 months) Ever experience any problems No 03/26/24 11:59 with transfusion(s)? Specify any problems Hx of Preganancy in last 3 No 03/26/24 11:59 Months Nurse Filling Out Transfusion [id number] 03/26/24 11:59 & Questions: Date: 03/26/24 03/26/24 11:59 Time: 12:01 03/26/24 11:59 Patient unable to answer at this time (ie. confused, unrespo /Reproduction History /Reproductive History - sound effects technician: /Reproductive Hx- sound effects technician Hx Now Gestational Age (in weeks): EDC: Hx Hx Para Hx Section SAB No 01/31/24 17:13 PFSH Medical History Neuropathy Lupus Irritable bowel syndrome affecting Retained cholelithiasis following cholecystectomy Elevated LDH Migraine without aura Lumbosacral radiculopathy at L4 Low iron Dysthymic disorder Abdominal pain, right upper quadrant Wears glasses Wears dentures Gastric reflux Smoker Anxiety Depression Home Medications ?Medication ?Instructions ?Recorded ?Last Taken ?Type multivitamin (One Daily 1 tab PO DAILY 07/07/23 Unknown History Multivitamin tablet) colestipol 1 gram tablet 1 g PO QDAY #30 tabs 02/23/24 Unknown Rx venlafaxine 37.5 mg 37.5 mg PO QDAY #90 caps 03/08/24 03/28/24 Rx capsule,extended release 24 hr (Effexor XR) apixaban 5 mg tablet (Eliquis) 5 mg PO BID 03/26/24 03/26/24 History Allergy/AdvReac Type Severity Reaction Status Date / Time No Known Allergies Allergy Verified 03/28/24 12:53 Family History Mother Liver cancer Alcoholism and drug addiction in family Emphysema lung Father Alcoholism and drug addiction in family Esophageal cancer Grandmother Liver cancer Diabetes Grandfather Seizures Uncle Lung cancer Other Throat cancer Surgical History History of bilateral ligation of fallopian tubes H/O dilation and curettage S/P cholecystectomy History of salpingectomy Social History adopted: No household members: significant other and children current occupational status: employed current occupation: [employer] current occupational exposures/hazards: No pets and animals: Yes pets and animals: guinea pig(s) sexually active: Yes Smoking Status: Former smoker alcohol intake: never substance use type: does not use caffeine: Yes Type: coffee frequency: daily seatbelt use: always do you feel safe at home: Yes additional social history: Jam Franco: stay's at home watching her 11yr Review of Systems (Anesthesia) ROS Narrative System reviewed and no additional complaints, except as documented.
--- NOTE | 2024-03-28 13:45 | EGD_PTH ---
PATIENT: SPEEDY BLACKWOOD LOC: EN U#:[id number] AGE/SX: 43/F ROOM: RE03/28/[address]: Dr. Jovan Hidalgo DO : 1980 BED: DIS: 03/28/2024 SPEC #: [id number] RECD: 03/29/24 07:45 STATUS: YELENA RELyndsay #: [id number] RYAN: 03/28/24 13:[address]: Jvoan Hidalgo DEPT: SURGICAL PATHOLOGY RECD BY: Marce Hanna ENTERED: 03/29/24 09:35 SP TYPE: EGD BIOPSY OT DR: Meagan Meléndez, THREE DIMENSIONAL ART INSTRUCTOR-C Tissues: A - Esophagus, NOS B - Ileum, NOS C - COLON BIOPSY Procedures: Special Stain Group I Surgery Specimen Level IV Alcian Blue/PAS (control) HEADER OPERATION: Colonoscopy, EGD with biopsy, dilatation PRE-OP DIAGNOSIS: Incontinence of feces, diarrhea TISSUE SUBMITTED: A- Distal esophagus biopsy, B- Terminal ileum biopsy, C- Random colon biopsy MICROSCOPIC DIAGNOSIS A. Distal esophagus, biopsy: Fragments of gastroesophageal mucosa with acute and chronic inflammation and changes consistent with gastroesophageal reflux disease. Intestinal metaplasia (goblet cell metaplasia) not identified. See comment. B. Terminal ileum, biopsy: A fragment of small intestinal mucosa, no pathologic diagnosis. See comment. C. Colon, random biopsy: Fragments of colonic mucosa, no pathologic diagnosis. See comment. 03/30/2024 COMMENT A. Alcian blue/PAS stain with matched control is used in the evaluation of the specimen. The specimen predominantly consists of squamous mucosa. Increased number of eosinophils consistent with eosinophilic esophagitis are not seen. B. Prominent lymphoid aggregates are noted. C. A minute fragment of unremarkable small intestinal mucosa is also noted. Correlation with clinical, endoscopic findings and appropriate follow up are necessary. MICROSCOPIC DESCRIPTION Slides are reviewed. GROSS DESCRIPTION A. Received in fixative is one container labeled with the patient's name and designated Distal esophagus biopsy. The specimen consists of multiple irregular fragments of light irwin soft tissue that in aggregate measure 2.0 x 0.3 x 0.1 cm. The specimen is totally submitted in one cassette. B. Received in fixative is one container labeled with the patient's name and designated Terminal ileum biopsy. The specimen consists of one irregular fragment of light irwin soft tissue that measures 0.6 x 0.2 x 0.1 cm. The specimen is totally submitted in one cassette. C. Received in fixative is one container labeled with the patient's name and designated Random colon biopsy. The specimen consists of multiple irregular fragments of light irwin soft tissue that in aggregate measure 1.2 x 0.5 x 0.1 cm. The specimen is totally submitted in one cassette. SJ.mr 03/29/2024 TC:3 CPT:90079u9,67214
--- NOTE | 2024-03-28 13:58 | PCM.HP.BLA ---
History and Physical Date of Admission: 03/28/24 SPEEDY BLACKWOOD, is a 43 F who presents to the office today for establishment with [facility]. Pt has a past medical hx of neuropathy, lupus, IBS, hot flashes, menorrhagia, and scoliosis. Over the past year she has been having new onset diarrhea with leaking stool. She will be sleeping at night and get up to use the bathroom and notice some stool on her underwear. She rarely has a formed bowel movement. Her stools are loose 80-90% of the time. She also mentions some epigastric and chest pain. She has had cardiac work up for this but has been without abnormality so she feels this may be related to GERD. She takes an OTC antacid pill on occasion which is helpful. She has never had an EGD or colonoscopy.She denies abdominal pain, n/v, constipation, or melena. ROS Const Constitutional: No anorexia, fatigue, fever(s), weight change or sleep problems Eyes Eyes: No change in vision ENT ENT: No abnormal hearing, difficulty swallowing, mouth lesions, tongue swelling or throat swelling Resp Respiratory: No cough or shortness of breath Cardio Cardiology: No chest pain at rest, chest pain with exertion, shortness of breath or dyspnea on exertion Gastro GI: Positive for diarrhea and heartburn; No difficulty swallowing Genitourinary-Female: No difficulty urinating or burning urination Musc Musculoskeletal: Positive for Arthritis Skin Skin: No hair loss in leg, yellowing of the eye, itchy eyes, rash, skin ulcer or skin swelling Neuro Neurology: No abnormal hearing, abnormal movements, confusion, unsteady gait/balance or memory loss Psych Psychiatric: Positive for anxiety, No confusion, Positive for depression and No memory loss Endo Endocrine: No fatigue or weight change Aller/Imm Allergy/Immunologic: No itchy eyes, throat swelling or tongue swelling Nolan/Lymp Hematologic/Lymphatic: No easy bleeding, easy bruising or enlarged lymph nodes Exam Const General: cooperative and comfortable Nutritional Appearance: average body habitus and well nourished [facility] Head: normal to inspection Ears: hearing grossly normal bilaterally Nose: external nose normal Face and sinus: normal facial exam Eyes General: appearance normal, both eyes and all related structures Neck Neck: normal visual inspection Chest Chest palpation & inspection: normal inspection of the chest Resp Effort & Inspection: normal respiratory effort GI Inspection: normal to inspection Palpation: no hepatosplenomegaly Skin General: no rashes or lesions noted Neuro General: patient alert Extrem General: normal to inspection Psych Affect: normal affect Assessment and Plan Assessment and Plan (1) Incontinence of feces: Plan: Pt is a 43 yo female here today for establishment with [facility] for evaluation of fecal incontinence and diarrhea. This has been happening for a year now. She rarely has a formed bm. She notices stool in her underwear when she wakes up in the morning. She also has epigastric/chest pain that she feels is related to reflux. We will start work up with stool testing and scopes. She is agreeable to this plan. I sent rx for colestipol 1 gram to the pharmacy. She would like to hold off on starting a daily PPI until she gets the EGD.Differential for diarrhea includes EPI, IBS, IBD, or colitis. -COlonoscopy -EGD -colestipol 1 gram daily -f/u in 3 months Medications: New colestipol 1 g PO QDAY 30 tabs 2RF I have examined the patient and the H&P has been reviewed. There are no clinical changes since date of exam.
--- NOTE | 2024-03-28 14:42 | PCM.POST.ANE ---
Anesthesia: Postop Eval I Current Vital Signs Temperature: 97.4 F Pulse Rate: 74 Blood Pressure: 124/105 Respiratory Rate: 16 Pulse Ox: 98 Oxygen Delivery Method: Room Air Assessment Airway patent: Yes Spontaneous unlabored respirations: Yes Mental status: Asleep nausea: No Vomiting: No Anesthesia Complication: No Fluid Hydration Crystalloid volume administer (ml): 60 Total IV fluid infused: 60 Progress Note Anesthesia document: Postop Eval 1 completed: Yes
--- NOTE | 2024-03-28 14:44 | OP.EGD_ITS ---
Patient Name: Joanne Law Procedure Date: 03/28/2024 2:03 PM Date of : 1980 Age: 43 Procedure: Upper GI endoscopy Indications: Dysphagia Providers: DO Robby Romero MD: Tayler Miller Medicines: Monitored Anesthesia Care Patient Profile: This is a 43 year old female. Refer to note in patient chart for documentation of history and physical. Patient has symptoms of chronic dysphagia, chronic dyspepsia, chronic heartburn, chronic nausea and chronic vomiting. Complications: No immediate complications. Procedure: Pre-Anesthesia Assessment: - Prior to the procedure, a History and Physical was performed, and patient medications and allergies were reviewed. The patient is competent. The risks and benefits of the procedure and the sedation options and risks were discussed with the patient. All questions were answered and informed consent was obtained. Patient identification and proposed procedure were verified by the physician in the pre-procedure area. Mental Status Examination: alert and oriented. Airway Examination: normal oropharyngeal airway and neck mobility. Respiratory Examination: clear to auscultation. CV Examination: normal. Prophylactic Antibiotics: The patient does not require prophylactic antibiotics. Prior Anticoagulants: The patient has taken no anticoagulant or antiplatelet agents except for NSAID medication. ASA Grade Assessment: II - A patient with mild systemic disease. After reviewing the risks and benefits, the patient was deemed in satisfactory condition to undergo the procedure. The anesthesia plan was to use monitored anesthesia care (MAC). Immediately prior to administration of medications, the patient was re-assessed for adequacy to receive sedatives. The heart rate, respiratory rate, oxygen saturations, blood pressure, adequacy of pulmonary ventilation, and response to care were monitored throughout the procedure. The physical status of the patient was re-assessed after the procedure. After obtaining informed consent, the endoscope was passed under direct vision. Throughout the procedure, the patient's blood pressure, pulse, and oxygen saturations were monitored continuously. The pediatric colonoscope was introduced through the mouth, and advanced to the second part of duodenum. The upper GI endoscopy was accomplished without difficulty. The patient tolerated the procedure well. Scope In: 2:11:27 PM Scope Out: 2:18:42 PM Total Procedure Duration Time 0 hours 7 minutes 15 seconds Findings: Mucosal changes including ringed esophagus, feline appearance, longitudinal furrows, small-caliber esophagus and white plaques were found in the lower third of the esophagus. Biopsies were obtained from the proximal and distal esophagus with cold forceps for histology of suspected eosinophilic esophagitis. A guidewire was placed and the scope was withdrawn. Dilation was performed with a Savary dilator with no resistance at 60 Fr. The dilation site was examined and showed moderate improvement in luminal narrowing. Estimated blood loss was minimal. A small hiatal hernia was present. Diffuse mildly erythematous mucosa without bleeding was found in the stomach. Patchy mildly erythematous mucosa without active bleeding and with no stigmata of bleeding was found in the duodenal bulb and in the first portion of the duodenum. Biopsies were taken with a cold forceps for histology. Verification of patient identification for the specimen was done. Estimated blood loss was minimal. Impression: - Esophageal mucosal changes consistent with eosinophilic esophagitis. Dilated. - Small hiatal hernia. - Erythematous mucosa in the stomach. - Erythematous duodenopathy. Biopsied. - Biopsies were taken with a cold forceps for evaluation of eosinophilic esophagitis. Recommendation: - Discharge patient to home. - Resume previous diet. - Use Prilosec (omeprazole) 40 mg PO daily. - Continue present medications. Procedure Code(s): --- Professional --- 30779, Esophagogastroduodenoscopy, flexible, transoral; with insertion of guide wire followed by passage of dilator(s) through esophagus over guide wire 81744, 59,51, Esophagogastroduodenoscopy, flexible, transoral; with biopsy, single or multiple CPT copyright 2021 [employer]. All rights reserved. The codes documented in this report are preliminary and upon supervisor transferring and boxing review may be revised to meet current compliance requirements. Jovan Hidalgo DO 03/28/2024 2:44:35 PM This report has been signed electronically. Number of Addenda: 0 Note Initiated On: 03/28/2024 2:03 PM
--- NOTE | 2024-03-28 14:45 | OP.CCLET_ITS ---
03/28/2024 Tayler Miller Re : Upper GI endoscopy procedure for Joanne Staffordr Rika This procedure was performed on Thursday, March 28, 2024. My impressions and recommendations are as follows: Impressions : - Esophageal mucosal changes consistent with eosinophilic esophagitis. Dilated. - Small hiatal hernia. - Erythematous mucosa in the stomach. - Erythematous duodenopathy. Biopsied. - Biopsies were taken with a cold forceps for evaluation of eosinophilic esophagitis. Recommendations : - Discharge patient to home. - Resume previous diet. - Use Prilosec (omeprazole) 40 mg PO daily. - Continue present medications. My findings are described in the full procedure note, which is enclosed. If I can be of further assistance, please feel free to contact me at . Sincerely, Jovan Hidalgo, 03/28/2024 2:44:35 PM This report has been signed electronically.
--- NOTE | 2024-03-28 14:46 | OP.COLON_ITS ---
Patient Name: Joanne Law Procedure Date: 03/28/2024 2:18 PM Date of : 1980 Age: 43 Procedure: Colonoscopy Indications: This is the patient's first colonoscopy, Chronic diarrhea Providers: Jovan Hidalgo DO Referring MD: Tayler Miller Medicines: Monitored Anesthesia Care Patient Profile: This is a 43 year old female. Refer to note in patient chart for documentation of history and physical. Patient has symptoms of chronic dysphagia, chronic dyspepsia, chronic heartburn, chronic nausea and chronic vomiting. Last Colonoscopy: none. The patient's first colonoscopy is today. Complications: No immediate complications. Procedure: Pre-Anesthesia Assessment: - Prior to the procedure, a History and Physical was performed, and patient medications and allergies were reviewed. The patient is competent. The risks and benefits of the procedure and the sedation options and risks were discussed with the patient. All questions were answered and informed consent was obtained. Patient identification and proposed procedure were verified by the physician in the pre-procedure area. Mental Status Examination: alert and oriented. Airway Examination: normal oropharyngeal airway and neck mobility. Respiratory Examination: clear to auscultation. CV Examination: normal. Prophylactic Antibiotics: The patient does not require prophylactic antibiotics. Prior Anticoagulants: The patient has taken no anticoagulant or antiplatelet agents except for NSAID medication. ASA Grade Assessment: II - A patient with mild systemic disease. After reviewing the risks and benefits, the patient was deemed in satisfactory condition to undergo the procedure. The anesthesia plan was to use monitored anesthesia care (MAC). Immediately prior to administration of medications, the patient was re-assessed for adequacy to receive sedatives. The heart rate, respiratory rate, oxygen saturations, blood pressure, adequacy of pulmonary ventilation, and response to care were monitored throughout the procedure. The physical status of the patient was re-assessed after the procedure. After I obtained informed consent, the scope was passed under direct vision. Throughout the procedure, the patient's blood pressure, pulse, and oxygen saturations were monitored continuously. The pediatric colonoscope was introduced through the anus and advanced to the cecum, identified by appendiceal orifice and ileocecal valve. The colonoscopy was performed without difficulty. The patient tolerated the procedure well. The quality of the bowel preparation was adequate. The terminal ileum, ileocecal valve, appendiceal orifice, and rectum were photographed. Scope In: 2:20:38 PM Scope Withdrawal Time 0 hours 6 minutes 51 seconds Scope Out: 2:34:30 PM Total Procedure Duration Time 0 hours 13 minutes 52 seconds Findings: The perianal and digital rectal examinations were normal. An area of mildly congested mucosa was found in the entire colon. Biopsies were taken with a cold forceps for histology. Verification of patient identification for the specimen was done. Estimated blood loss was minimal. The terminal ileum appeared normal. Biopsies were taken with a cold forceps for histology. Verification of patient identification for the specimen was done. Estimated blood loss was minimal. Impression: - Congested mucosa in the entire examined colon. Biopsied. - The examined portion of the ileum was normal. Biopsied. Recommendation: - Discharge patient to home. - Resume previous diet. - Continue present medications. - Await pathology results. - Repeat colonoscopy for surveillance based on pathology results. Procedure Code(s): --- Professional --- 86473, Colonoscopy, flexible; with biopsy, single or multiple CPT copyright 2021 [employer] [place] [employer]. All rights reserved. The codes documented in this report are preliminary and upon craft demonstrator review may be revised to meet current compliance requirements. Jovan Hidalgo DO 03/28/2024 2:46:11 PM This report has been signed electronically. Number of Addenda: 0 Note Initiated On: 03/28/2024 2:18 PM
--- NOTE | 2024-03-28 14:46 | OP.CCLET_ITS ---
03/28/2024 Tayler Miller Re : Colonoscopy procedure for Joanne Law Dear Rika This procedure was performed on Thursday, March 28, 2024. My impressions and recommendations are as follows: Impressions : - Congested mucosa in the entire examined colon. Biopsied. - The examined portion of the ileum was normal. Biopsied. Recommendations : - Discharge patient to home. - Resume previous diet. - Continue present medications. - Await pathology results. - Repeat colonoscopy for surveillance based on pathology results. My findings are described in the full procedure note, which is enclosed. If I can be of further assistance, please feel free to contact me at . Sincerely, Jovan Hidalgo, 03/28/2024 2:46:11 PM This report has been signed electronically.
--- NOTE | 2024-03-28 16:32 | PCM.POSTANE2 ---
Anesthesia Postop Eval I Sum Postop Eval Completion status Anesthesia document: Postop Eval 1 completed: Yes Anesthesia Postop Eval I Summary Anesthesia Postop Eval I Summary: Anesthesia Postop Eval I: Assessment Summary Airway patent Yes 03/28/24 14:43 [email or web address] Spontaneous unlabored Yes 03/28/24 14:43 [email or web address] respirations Mental status Asleep 03/28/24 14:43 [email or web address] nausea No 03/28/24 14:43 [email or web address] Vomiting No 03/28/24 14:43 [email or web address] Anesthesia Postop Eval I: Fluid Summary Crystalloid volume administer 60 03/28/24 14:43 [email or web address] (ml) Colloids volume administered ( ml) Blood Product volume administered (ml) Total IV fluid infused 60 03/28/24 14:43 [email or web address] Anesthesia Postop Eval I: Summary Notes Anesthesia Complication No 03/28/24 14:43 [email or web address] Anesthesia Complication Comment: Post-operative progress note Anesthesia: Postop Eval II Evaluation Mental status: Awake and Calm Pain Level: 0 nausea: No Vomiting: No Complications Anesthesia Complication: No
== END 2024-03-28 15:35 | disposition home or self-care (01) ==
LOC: EN 12:34 → AC 12:34
PROVIDERS: PCP Nurse Practitioner Family; Referring Provider Nurse Practitioner Family; Visit Provider Internal Medicine Gastroenterology
PROC: 0DJD8ZZ Inspection of Lower Intestinal Tract, Via Natural or Artificial Opening Endoscopic (ICD-10-PCS; CPT 45378; principal; 2024-03-28 13:40)
DX: K58.9 Irritable bowel syndrome, unspecified (principal); M32.9 Systemic lupus erythematosus, unspecified; K22.89 Other specified disease of esophagus; K31.89 Other diseases of stomach and duodenum; K63.89 Other specified diseases of intestine; K44.9 Diaphragmatic hernia without obstruction or gangrene; K21.9 Gastro-esophageal reflux disease without esophagitis; F41.9 Anxiety disorder, unspecified; F32.A Depression, unspecified; M41.9 Scoliosis, unspecified; M54.17 Radiculopathy, lumbosacral region; Z87.19 Personal history of other diseases of the digestive system; Z90.49 Acquired absence of other specified parts of digestive tract; Z79.899 Other long term (current) drug therapy; Z87.891 Personal history of nicotine dependence
CPT/HCPCS: 45380; 43239; 43248; 82653; 83630; 83993; 87506; 88305; 88312; A4216; C1769; J2405

== ENCOUNTER 2024-12-05 20:37 | Emergency (ER) | payer MEDICAID, SELFPAY ==
[2024-12-05 20:37] VITALS: BP 136/61; PULSE 91; RESP 14; TEMP 36.1; O2SAT 98; BMI 32.8
--- NOTE | 2024-12-05 21:23 | ED.VIS.CHEST ---
HPI History of Present Illness Chief Complaint: Chest Pain [facility] Medical History Neuropathy Lupus Irritable bowel syndrome affecting Retained cholelithiasis following cholecystectomy Elevated LDH Migraine without aura Lumbosacral radiculopathy at L4 Low iron Dysthymic disorder Abdominal pain, right upper quadrant Wears glasses Wears dentures Gastric reflux Smoker Anxiety Depression Home Medications Medication Instructions Recorded Last Taken Type venlafaxine 37.5 mg 37.5 mg PO QDAY #90 caps 03/08/24 03/28/24 Rx capsule,extended release 24 hr (Effexor XR) gabapentin 300 mg capsule 300 mg PO QHS #90 caps 10/02/24 Unknown Rx medroxyprogesterone 2.5 mg tablet 2.5 mg PO QDAY #90 tabs 10/02/24 Unknown Rx melatonin 5 mg capsule 5 mg PO QHS PRN 10/02/24 Unknown History omeprazole 20 mg capsule,delayed 20 mg PO BID 10/02/24 Unknown History release clobetasol 0.05 % topical ointment 1 applic topical BID 12/05/24 Unknown History Allergy/AdvReac Type Severity Reaction Status Date / Time No Known Allergies Allergy Verified 12/05/24 20:38 Family History Mother Liver cancer Alcoholism and drug addiction in family Emphysema lung Father Alcoholism and drug addiction in family Esophageal cancer Grandmother Liver cancer Diabetes Grandfather Seizures Uncle Lung cancer Other Throat cancer Surgical History History of bilateral ligation of fallopian tubes H/O dilation and curettage S/P cholecystectomy History of salpingectomy Social History adopted: No household members: significant other and children current occupational status: employed current occupation: [employer] current occupational exposures/hazards: No pets and animals: Yes pets and animals: guinea pig(s) sexually active: Yes Smoking Status: Former smoker alcohol intake: never substance use type: does not use caffeine: Yes Type: coffee frequency: daily seatbelt use: always do you feel safe at home: Yes additional social history: Jam Franco: stay's at home watching her 11yr EXAM Physical Exam Const Vital Signs: 12/05/24 20:37 12/05/24 20:45 12/05/24 21:37 Temperature 96.9 F L Temperature Source Temporal Pulse Rate 91 Respiratory Rate 14 Respiratory Pattern Normal Blood Pressure 136/61 H Blood Pressure Mean 86 Pulse Ox 98 Oxygen Delivery Method Room Air Room Air 12/05/24 22:13 12/05/24 23:00 Temperature Temperature Source Pulse Rate 85 86 Respiratory Rate 12 12 Respiratory Pattern Blood Pressure 137/67 H 110/69 Blood Pressure Mean 90 82 Pulse Ox 98 96 Oxygen Delivery Method Room Air Room Air [facility] Narrative Medical decision making narrative: HISTORY OF PRESENT ILLNESS: Chief complaint: Chest pain 44-year-old female presents with chest pain history of pulmonary embolism not currently anticoagulated, lupus, irritable bowel syndrome. Notes she developed a chest tightness/squeezing that was reminiscent of prior PE earlier today. Denies syncope. No she is not currently on anticoagulation. Denies cough fever chills. Denies leg swelling. Denies shortness of breath. No pain at this time. REVIEW OF SYSTEMS: Pertinent positives: Chest pain Pertinent negatives: Shortness of breath, leg swelling, vomit PHYSICAL EXAM: Nursing triage notes reviewed, Vital signs reviewed Constitutional: please see [facility] HENT: MMM Eyes: Pupils equal round and reactive to light, Extraocular muscles intact Neck: No stridor, no JVD, full neck ROM Lungs: Clear to auscultation, No wheezing or rales. No increased work of breathing, no conversational dyspnea, no accessory muscle use, no nasal flaring. No respiratory distress noted Heart: Regular rate and rhythm, No murmurs, No rubs and No gallops, 2+ distal pulses (radial, femoral, posterior tibial) in all extremities Abdomen: Soft, there is no tenderness, rigidity, rebound or guarding, no obvious peritoneal signs, no palpable pulsatile abdominal masses, no auscultated abdominal bruit : No CVAT Extremities: No edema Neuro: No new focal neurological deficits, cranial nerves II through XII intact, 5/5 strength in all present extremities. Intact sensation to light touch in all present extremities, 2+ reflexes bilateral patella tendons. Skin: No rash or lesions noted MEDICAL DECISION MAKING: Chief Complaint: please see HPI External records reviewed: Reviewed imaging studies: Reviewed CTA of the chest from 2023 showed bilateral PEs Factors affecting care: n as per HPI Social determinants of health: Denies illicit drug History obtained from others: none Consults: none [facility] Narrative: Patient was initially hemodynamically stable, afebrile and nontoxic appearing. Exam without focal cardiopulmonary normalities. The patient no distress. He is not tachycardic or hypoxic. No stigmata of VTE neurological exam I considered the following differential diagnosis: PE, ACS, arrhythmia, anemia, pneumothorax, pneumonia I obtained a broad lab and imaging evaluation to further determine if the patient was suffering from a life-threatening etiology. ALL IMAGES (IF OBTAINED) HAVE BEEN PERSONALLY REVIEWED AND INTERPRETED BY MYSELF. CBC without leukocytosis, severe anemia, no thrombocytopenia. BMP without evidence of significant electrolyte abnormalities, no anion gap, no acute kidney injury. Initial BNP negative making VTE, CHF less likely High-sensitivity troponin is negative, no evidence of myocardial ischemia EKG with normal sinus rhythm 87, left axis deviation, normal intervals, no STEMI, no stigmata of VTE CT PE negative for PE, dissection, pneumonia or pneumothorax Upon reevaluation patient noted that she feels better if she takes it could have been food that she ate. She attributes some of the symptoms to her hiatal hernia. States that she like to go home and wishes to forego second troponin. The patient was alert and orient x 3 and had capacity to make her medical decisions. She was able to voice risk and benefits of premature discharge versus staying to complete workup. She chose to be discharged home at this time and forego second troponin to complete high-sensitivity troponin ACS protocol. The patient and/or family, caregivers express understanding. The patient and/or family, caregivers agrees with the plan. Shared decision making: I will have a discussion with the patient and or visitors regarding risk/benefits of further testing or admission. They will be made aware of of the risk/benefits inherent in this decision they will be given the opportunity to voice understanding. Total critical care time today provided was at least 0 minutes. This excludes separately billable procedures. Critical care time (if documented) is secondary to the patient having high probability of clinically significant/life threatening deterioration in the patient's condition which required my urgent intervention. Impression: 1. Chest pain 2. History of PE Dispo: Discharge home This note was generated with [employer] dictation software. It may contain incorrect words, spelling, and punctuation that were not noted in review of the chart prior to signing. Lab Data Labs: Laboratory Results - last 24 hr 12/05/24 21:40 WBC 9.7 RBC 4.03 L Hgb 12.9 Hct 36.0 L MCV 89.3 MCH 32.0 MCHC 35.8 RDW Std Deviation 38.2 RDW Coeff of Ramiro 11.9 Plt Count 321 MPV 9.8 Immature Gran % (Auto) 0.900 Neut % (Auto) 50.1 Lymph % (Auto) 36.8 [place] % (Auto) 6.2 Eos % (Auto) 5.4 H Baso % (Auto) 0.6 Absolute Neuts (auto) 4.8 Absolute Lymphs (auto) 3.56 Nucleated RBC % 0 Sodium 140 Potassium 3.6 Chloride 103 Carbon Dioxide 24.5 Anion Gap 13 BUN 13 Creatinine 0.78 Estim Creat Clear Calc 92.53 Est GFR (MDRD) Non-Af 95 BUN/Creatinine Ratio 16.1 Glucose 127 H Calcium 9.9 Troponin T High Sens < 6 NT pro BNP II < 36 Radiography Diagnostic Testing: Clinical Impression(s) from Imaging Studies Chest CTA 12/05/24 21:35 IMPRESSION: No embolism, dissection, or pneumonia. Suspect hepatitis. Reading Location: [place] [address] Discharge Plan Triage Chief Complaint: Chest Pain ED Provider: Armando Weems Dx/Rx/DC Orders Instructions: ED Chest Pain, Uncertain Cause Prescriptions: No Action omeprazole 20 mg capsule,delayed release(DR/EC) 20 mg PO BID melatonin 5 mg capsule 5 mg PO QHS PRN medroxyprogesterone 2.5 mg tablet 2.5 mg PO QDAY Qty: 90 4RF gabapentin 300 mg capsule 300 mg PO QHS Qty: 90 4RF clobetasol 0.05 % ointment 1 applic topical BID venlafaxine [Effexor XR] 37.5 mg capsule,extended release 24hr 37.5 mg PO QDAY Qty: 90 3RF Primary Care Provider: Meagan Meléndez Referrals: Meagan Meléndez, [employer] [Primary Care Provider] - Activity Restrictions/Additional Instructions: Thank you for trusting us with your care today! Your labs images are reassuring. Specifically no sign of blood clots noted on your CT scan Please take Tylenol (2 pills, 650 mg), ibuprofen (2 pills, 400 mg) every 6 hours as needed for pain and fever control. Please return to the emergency department if your symptoms change or worsen. Please follow with your primary care physician for further outpatient evaluation and management. Print Language: Urdu Disposition Disposition: Home, Self Care Discharge Date/Time: 12/05/24 23:50
--- NOTE | 2024-12-05 21:35 | CT_ITS ---
PROCEDURE: CTA CHEST W/WO CONTRAST 12/05/2024 REASON FOR EXAM: CHEST PAIN, HISTORY OF PE TECHNIQUE: CTA CHEST W/WO CONTRAST Multiplanar Sagittal and Coronal images were obtained. CONTRAST: Isovue 370 VOLUME: 100 mL One or more dose reduction techniques were used (e.g., Automated exposure control, adjustment of the mA and/or kV according to patient size, use of iterative reconstruction technique). RADIATION DOSE SUMMARY: CTDlvol: 15 mGy DLP: 371 mGycm COMPARISON: 01/17/2024 FINDINGS: Unremarkable base of neck and axilla. Normal heart size. No aortic dissection. Normal esophagus. No pulmonary embolism. No acute chest wall findings. Enlarged liver with diffuse hepatic steatosis consistent with medical liver disease. No acute upper abdominal findings otherwise noted. Central airways are patent. Dependent atelectasis. No consolidation, effusion, or pneumothorax. CT/CTA Chest W/WO Contrast IMPRESSION: No embolism, dissection, or pneumonia. Suspect hepatitis. Reading Location: [facility]
--- NOTE | 2024-12-05 21:35 | EKG12_ITS ---
Test Reason : CP Blood Pressure : */* mmHG Vent. Rate : 87 BPM Atrial Rate : 87 BPM P-R Int : 124 ms QRS Dur : 94 ms QT Int : 374 ms P-R-T Axes : 40 -13 7 degrees QTcB Int : 450 ms Normal sinus rhythm Cannot rule out Anterior infarct , age undetermined Abnormal ECG Confirmed by REDD BARKER, LOTUS ([id number]), publishing editor AMY RUSSELL ([id number]) on 12/07/2024 1:12:39 PM Referred By: Armando Weems Confirmed By: LOTUS RAINEY MD
--- OUTSIDE RECORDS SUMMARY | 2024-12-05 21:45 | XMS RPT_ITS | CCD ---
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 Postcoital bleeding 10-07-2022 Chronic Other female genital disorders (6 sources) Abnormal uterine bleeding; Translations: [Other specified abnormal uterine and vaginal bleeding] 10-07-2022 Chronic Other gastrointestinal disorders (1 source) Incontinence of feces; Translations: [Full incontinence of feces] 01-19-2024 Episodic Other nervous system disorders (1 source) Neuropathy; Translations: [Polyneuropathy, unspecified] 02-23-2024 Chronic Other nervous system disorders (3 sources) Paresthesia of lower extremity 01-25-2019 Episodic Other nervous system disorders (3 sources) Hyperreflexia; Translations: [Abnormal reflex] 11-18-2023 Episodic Other nervous system disorders (3 sources) Impairment of balance; Translations: [Other abnormalities of gait and mobility] 11-18-2023 Episodic Other non-traumatic joint disorders (7 sources) Lumbar facet joint pain; Translations: [Pain of lumbar facet joint] 09-16-2022 Episodic Other non-traumatic joint disorders (1 source) Pain in left knee; Translations: [Pain in joint, lower leg] 01-24-2023 Episodic Other screening for suspected conditions (not mental disorders or infectious disease) (6 sources) Patient encounter status; Translations: [Encounter for screening for diabetes mellitus] Episodic Other skin disorders (1 source) Night sweats; Translations: [Generalized hyperhidrosis] 01-24-2023 Episodic Other skin disorders (1 source) Eruption; Translations: [Rash and other nonspecific skin eruption] 04-30-2024 Episodic Other skin disorders (2 sources) Cyst of skin; Translations: [Follicular cyst of the skin and subcutaneous tissue, unspecified] 09-18-2024 Episodic Other skin disorders (1 source) Follicular cyst of the skin and subcutaneous tissue, unspecified; Translations: [Generalized skin cysts] Onset: Episodic Other upper respiratory disease (3 sources) Allergic rhinitis 07-19-2019 Chronic Residual codes; unclassified (3 sources) Chronic back pain 12-19-2015 Episodic Residual codes; unclassified (1 source) Flushing; Translations: [Flushing] 01-23-2024 Episodic Comment on above: NO estrogen. Failed gabapentin, clonidine and black cohash. Sexually transmitted infections (not HIV or hepatitis) (1 source) Chlamydial cervicitis 10-25-2022 Episodic Skin and subcutaneous tissue infections (2 sources) Cellulitis of skin; Translations: [Cellulitis, unspecified] Onset: 5 09-14-2024 Episodic Spondylosis; intervertebral disc disorders; other back problems (20 sources) Degeneration of lumbar intervertebral disc; Translations: [Other intervertebral disc degeneration, lumbar region] Onset: 5 06-19-2014 Chronic Spondylosis; intervertebral disc disorders; other back problems (20 sources) Lumbar radiculopathy; Translations: [Radiculopathy, lumbar region] Onset: 5 Episodic Sprains and strains (7 sources) Strain of neck muscle; Translations: [Strain of muscle, fascia and tendon at neck level, initial encounter] 05-26-2021 Episodic Systemic lupus erythematosus and connective tissue disorders (1 source) Lupus erythematosus; Translations: [Systemic lupus erythematosus] 02-23-2024 Chronic Unclassified (1 source) Patient encounter status 08-10-2024 Urinary tract infections (6 sources) Acute cystitis; Translations: [Acute cystitis without hematuria] 10-07-2022 Episodic Past or Other Problems Problem Classification Problem Date Documented Da te Episodic/Chronic Abdominal pain (19 sources) Right upper quadrant pain; Translations: [Right upper quadrant pain] Resolved: 06-28-2011 06-28-2011 Episodic Biliary tract disease (19 sources) Gallstone; Translations: [Calculus of gallbladder without cholecystitis without obstruction] Onset: 10-02-2007 Resolved: 06-28-2011 06-28-2011 Episodic Nonspecific chest pain (3 sources) Chest pain; Translations: [Chest pain, unspecified] Onset: 02-23-2024 01-25-2024 Episodic Other complications of (19 sources) Supervision of other high risk pregnancies, unspecified trimester; Translations: [Supervision of other high-risk ] Onset: 07-26-2011 Resolved: 11-22-2013 11-22-2013 Episodic Other connective tissue disease (20 sources) Pain in lower limb; Translations: [Pain in leg, unspecified] Onset: 08-31-2011 08-31-2011 Episodic Other connective tissue disease (1 source) Other symptoms and signs involving the nervous system; Translations: [Hemisensory deficit] Onset: 12-22-2023 Episodic Other gastrointestinal disorders (2 sources) Full incontinence of feces; Translations: [Incontinence of feces, unspecified fecal incontinence type] Onset: 01-19-2024 Episodic Other gastrointestinal disorders (1 source) Other fecal abnormalities; Translations: [Other fecal abnormalities] Onset: 04-27-2024 Episodic Other liver diseases (19 sources) Elevated levels of transaminase & lactic acid dehydrogenase; Translations: [Nonspecific elevation of levels of transaminase or lactic acid dehydrogenase (LDH)] Resolved: 06-28-2011 06-28-2011 Episodic Other nervous system disorders (1 source) Abnormal reflex; Translations: [Hyperreflexia] Onset: 12-22-2023 Episodic Other nervous system disorders (1 source) Other abnormalities of gait and mobility; Translations: [Balance disorder] Onset: 12-22-2023 Episodic Pulmonary heart disease (7 sources) Acute pulmonary embolism; Translations: [Other pulmonary embolism without acute cor pulmonale] Onset: 01-19-2024 01-19-2024 Episodic Residual codes; unclassified (20 sources) Tobacco user; Translations: [Tobacco use] Onset: 12-26-2013 12-26-2013 Episodic Residual codes; unclassified (1 source) Flushing; Translations: [Flushing] Onset: 01-23-2024 Episodic Screening and history of mental health and substance abuse codes (20 sources) Tobacco use and exposure - finding; Translations: [Personal history of nicotine dependence] Onset: 06-28-2011 06-28-2011 Episodic Results Test Name Value Interpretation Reference Range Facility Surveillance Technician Office Visit Reporton 10-02-2024 Surveillance Technician Office Visit Report [facility]'[address], [address] [place] [address] OFFICE VISIT Date of Service: 10/02/24 MR#: [id number] Acct: [id number] Name: SPEEDY BLACKWOOD Rep #: [id number] : 1980 Provider: Dr. Tati Tomlinson DO Age/Sex: 44/F Location: [facility] Status: Signed Intake Vital Signs 03/28/24 12:53 10/02/24 15:24 Height 5 ft 4 in 5 ft 4 in Weight: 179 lb 6 oz BMI 30.7 BP 109/77 Intake Visit Reasons: Hormone Replacement thearpy Wholesale Account Executive Required: No Is patient in pain?: No Allergies No Known Allergies Allergy (Verified 03/28/24 12:53) Medications ???Medication ???Instructions ???Recorded ???Confirmed ???Type venlafaxine 37.5 mg 37.5 mg PO QDAY #90 caps 03/08/24 10/02/24 Rx capsule,extended release 24 hr (Effexor XR) gabapentin 300 mg capsule 300 mg PO QHS #90 caps 10/02/24 Rx medroxyprogesterone 2.5 mg tablet 2.5 mg PO QDAY #90 tabs 10/02/24 10/02/24 Rx melatonin 5 mg capsule mg PO 10/02/24 10/02/24 History omeprazole 20 mg capsule,delayed 20 mg PO BID 10/02/24 History release Post menopausal: No Patient : No : No PFSH Medical History Neuropathy Lupus Irritable bowel syndrome affecting Retained cholelithiasis following cholecystectomy Elevated LDH Migraine without aura Lumbosacral radiculopathy at L4 Low iron Dysthymic disorder Abdominal pain, right upper quadrant Wears glasses Wears dentures Gastric reflux Smoker Anxiety Depression Surgical History History of bilateral ligation of fallopian tubes H/O dilation and curettage S/P cholecystectomy History of salpingectomy Family History Mother Liver cancer Alcoholism and drug addiction in family Emphysema lung Father Alcoholism and drug addiction in family Esophageal cancer Grandmother Liver cancer Diabetes Grandfather Seizures Uncle Lung cancer Other Throat cancer Social History adopted: No household members: significant other and children current occupational status: employed current occupation: [employer] current occupational exposures/hazards: No pets and animals: Yes pets and animals: guinea pig(s) sexually active: Yes Smoking Status: Former smoker alcohol intake: never substance use type: does not use caffeine: Yes Type: coffee frequency: daily seatbelt use: always do you feel safe at home: Yes additional social history: Jam Franco: stay's at home watching her 11yr HPI Hormone Replacement thearpy Details: SPEEDY BLACKWOOD is a 44 year old who presents for discussion about hot flashes, mood swings, decreased libido, and weight gain. She states that she has completely quit smoking cigarettes. She has been on effexor with little relief. She thinks maybe her moods are slightly improved on the effexor and she does not want to quit this because she missed one pill and felt bad. She does have a h/o PE and was on eliquis (off now) and she knows she is not a candidate for estrogen. History 3 Elective abortions Hx Para 3 Spontaneous abortions Hx # Term Pregnancies Ectopic pregnancies Hx # Pregnancies Multiple births # of living children 3 Past Pregnancies Del. Date Name GA/Weeks Outcome Route Bth Weight Infant Gen Labor Lgth Anesthesia Del [facility] Provider FOB 10/31/96 Ruben Moneta 04/17/00 [facility] 01/07/12 [facility] ROS Const ROS Unobtainable: All systems reviewed are unremarkable except as noted in H Resp Resp: Reports system reviewed and no additional complaints, except as documented; Denies cough GI GI: Reports as per HPI Psych Psych: Reports system reviewed and no additional complaints, except as documented Exam Const General: cooperative, healthy appearing, comfortable and no acute distress Resp Effort Inspection: normal respiratory effort Skin General: no rashes or lesions noted Psych Appearance: grossly normal Speech and Movement: speech and movement normal Coding Level of Care Code Off vis,est,level 4 Diagnoses Lupus Irritable bowel syndrome affecting O99.619; K58.9 Hot flashes R23.2 Neuropathy G62.9 H/O dilation and curettage Z98.890 Menorrhagia with irregular cycle N92.1 Menorrhagia type: with irregular cycle Lumbar facet joint pain M54.59 Herniation of intervertebral disc between L4 and L5 M51.26 Scoliosis M41.9 Lower back pain M54.50 Assessment and Plan Assessment and Plan (1) Lupus: Status: Acute (2) Irritable bowel syndrome affecting : St (more content not included)... Normal [facility] CNOVon 09-18-2024 CNOV Office Visit (FAMWS ) SPEEDY BLACKWOOD ([id number]) 1980 F [facility] Date Time Provider Department 09/18/24 9:00 AM NGUYEN KURTZ During your visit today, we recorded the following information about you: Pulse Blood pressure Weight 90/minute 104/68 80.7 kg Nguyen Kurtz, NDT INSPECTOR.[facility] 09/18/2024 9:02 AM Signed Chief Complaint Patient presents with: Follow Up HPI Speedy Blackwood is a 44 year old female who presents here today for Above Complaints.. From 09/14/24:Patient presents for 3 red bumps to right elbow. Patient reports it started with one bump and now has 3 bumps. Reports they are tender. Today patient presents with no improvement in bumps to right elbow despite completing keflex course. Past medical history, appointments, medications, allergies reviewed. [...] on File Prior to Visit Medication Sig cephALEXin (KEFLEX) 500 mg capsule Take 1 capsule by mouth four times daily for 5 days. omeprazole (PRILOSEC) 20 mg capsule venlafaxine ER (EFFEXOR XR) 37.5 mg 24 hr capsule gabapentin (NEURONTIN) 100 mg capsule Take 1 capsule by mouth every other day for 90 days. No current facility-administered medications on file prior to visit. Social History Social History Tobacco Use Smoking status: Every Day Current packs/day: 0.50 Average packs/day: 0.5 packs/day for 20.0 years (10.0 ttl pk-yrs) Types: Cigarettes Smokeless tobacco: Never Vaping Use Vaping status: current everyday user Substances: Nicotine, Flavoring Devices: Disposable Substance Use Topics Alcohol use: Yes Comment: rare Drug use: Not Currently Types: Marijuana Review of Symptoms REVIEW OF SYSTEMS SEE HPI EXAM: BP 104/68 Pulse 90 Wt 80.7 kg (178 lb) LMP 08/15/2018 BMI 30.55 kg/m? General Appearance: Well appearing, alert, in no acute distress, well-hydrated, well nourished. Skin: Positives: Three red, raised areas to right elbow. no drainage noted. Warm and tender to touch. Firmer than previous evaluation but no change in size. Health Maintenance List Anxiety Screening Never done Mammogram Screening due on 09/15/2023 Covid-19 Vaccine( season) due on 08/10/2025 Pneumococcal Vaccine(1 of 2 - PCV) due on 08/10/2025 Influenza Vaccine(Season Ended) due on 01/14/2025 Colorectal Cancer Screening due on 03/28/2025 Diabetes Screening due on 09/13/2025 Cervical Cancer Screening due on 05/16/2027 Lipid Screening due on 09/14/2027 DTaP,Tdap,Td Vaccine(2 - Td or Tdap) due on 02/19/2032 Hepatitis C Screening Completed HIV Screening Completed Hepatitis B Vaccine Discontinued ASSESSMENT/PLAN: 1. Generalized skin cysts - ICD9: 706.2, ICD10: L72.9 - CONSULT TO DERMATOLOGY Nguyen Kurtz APRN.CLERICAL RECEPTIONIST Allergies As of Date: 09/18/2024 (No Known Allergies) Date Reviewed: 09/18/2024 Reviewed by: Pratibha Ha MA - Fully Assessed Reason for Visit: Follow Up [171] Primary Visit Diagnosis:Generalized skin cysts [L72.9] Order(s):CONSULT TO DERMATOLOGY [9006] Order #: [id number]: 1 FUTURE Prescriptions as of 09/18/2024 - omeprazole (PRILOSEC) 20 mg capsule - venlafaxine ER (EFFEXOR XR) 37.5 mg 24 hr capsule - gabapentin (NEURONTIN) 100 mg capsule Take 1 capsule by mouth every other day for 90 days. Problem List As Of Date 09/18/2024 Noted Resolved Cholelithiasis NOS [K80.20] 10/02/2007 06/28/2011 Abdominal pain, right upper quadrant [R10.11] 06/28/2011 Elev transaminase/LDH [R74.01, R74.02] 06/28/2011 Personal history of tobacco use, presenting haz*06/28/2011 [facility] RISK NEC [V23.89] [O09.899]07/26/2011 11/22/2013 Leg pain [M79.606] 08/31/2011 Tobacco abuse [Z72.0] 12/26/2013 Depression [F32.A] 12/26/2013 Discogenic pain [ESJ0503] 06/19/2014 DDD (degenerative disc disease), lumbar [M51.36*06/19/2014 Chronic back pain [M54.9, G89.29] 06/19/2014 Medications Discontinued D (more content not included)... Normal [facility] CNOVon 09-14-2024 CNOV Office Visit (FAMPWS ) SPEEDY BLACKWOOD ([id number]) 1980 F [facility] Date Time Provider Department 09/14/24 9:00 AM NGUYEN KURTZ During your visit today, we recorded the following information about you: Pulse Blood pressure Weight 88/minute 107/74 81 kg Nguyen Kurtz APRN.CLERICAL RECEPTIONIST 09/14/2024 9:02 AM Signed Chief Complaint Patient presents with: Follow Up: Red bumps on right elbow X 1 month HPI Speedy Blackwood is a 44 year old female who presents here today for Above Complaints.. Patient presents for 3 red bumps to right elbow. Patient reports it started with one bump and now has 3 bumps. Reports they are tender. Past medical history, appointments, medications, allergies reviewed. [...] on File Prior to Visit Medication Sig omeprazole (PRILOSEC) 20 mg capsule venlafaxine ER (EFFEXOR XR) 37.5 mg 24 hr capsule gabapentin (NEURONTIN) 100 mg capsule Take 1 capsule by mouth every other day for 90 days. No current facility-administered medications on file prior to visit. Social History Social History Tobacco Use Smoking status: Every Day Current packs/day: 0.50 Average packs/day: 0.5 packs/day for 20.0 years (10.0 ttl pk-yrs) Types: Cigarettes Smokeless tobacco: Never Vaping Use Vaping status: current everyday user Substances: Nicotine, Flavoring Devices: Disposable Substance Use Topics Alcohol use: Yes Comment: rare Drug use: Not Currently Types: Marijuana Review of Symptoms REVIEW OF SYSTEMS SEE HPI EXAM: BP 107/74 Pulse 88 Wt 81 kg (178 lb 9.2 oz) LMP 08/15/2018 BMI 30.65 kg/m? General Appearance: Well appearing, alert, in no acute distress, well-hydrated, well nourished. Skin: Positives: Three red, raised areas to right elbow. no drainage noted. Warm and tender to touch. Health Maintenance List Anxiety Screening Never done Mammogram Screening due on 09/15/2023 Covid-19 Vaccine( - season) due on 08/10/2025 Pneumococcal Vaccine(1 of 2 - PCV) due on 08/10/2025 Influenza Vaccine(Season Ended) due on 01/14/2025 Colorectal Cancer Screening due on 03/28/2025 Diabetes Screening due on 09/13/2025 Cervical Cancer Screening due on 05/16/2027 Lipid Screening due on 09/14/2027 DTaP,Tdap,Td Vaccine(2 - Td or Tdap) due on 02/19/2032 Hepatitis C Screening Completed HIV Screening Completed Hepatitis B Vaccine Discontinued ASSESSMENT/PLAN: 1. Cellulitis of skin - ICD9: 682.9, ICD10: L03.90 - Begin treatment with Cephalaxin (Keflex) - CEPHALEXIN 500 MG CAPSULE Nguyen Kurtz APRN.CLERICAL RECEPTIONIST Allergies As of Date: 09/14/2024 (No Known Allergies) Date Reviewed: 09/14/2024 Reviewed by: Pratibha Ha MA - Fully Assessed Reason for Visit: Follow Up [171] Cmt: Red bumps on right elbow X 1 month Primary Visit Diagnosis:Cellulitis of skin [L03.90] Order(s):cephALEXin (KEFLEX) 500 mg capsuleTake 1 capsule by mouth four times daily for 5 days.Disp: 20 capsuleRfl: 0 Prescriptions as of 09/14/2024 - cephALEXin (KEFLEX) 500 mg capsule Take 1 capsule by mouth four times daily for 5 days. - omeprazole (PRILOSEC) 20 mg capsule - venlafaxine ER (EFFEXOR XR) 37.5 mg 24 hr capsule - gabapentin (NEURONTIN) 100 mg capsule Take 1 capsule by mouth every other day for 90 days. Problem List As Of Date 09/14/2024 Noted Resolved Cholelithiasis NOS [K80.20] 10/02/2007 06/28/2011 Abdominal pain, right upper quadrant [R10.11] 06/28/2011 Elev transaminase/LDH [R74.01, R74.02] 06/28/2011 Personal history of tobacco use, presenting haz*06/28/2011 [facility] HIGH RISK NEC [V23.89] [O09.899]07/26/2011 11/22/2013 Leg pain [M79.606] 08/31/2011 Tobacco abuse [Z72.0] 12/26/2013 Depression [F32.A] 12/26/2013 Discogenic pain [LIQ5879] 06/19/2014 DDD (degenerative disc disease), lumbar [M51.36*06/19/2014 Chronic back pain [M54.9, G89.29] 06/19/2014 Prescriptions ordered this (more content not included)... Normal [facility] CNOVon 08-10-2024 CNOV Office Visit (FELICITA ) SPEEDY BLACKWOOD Dat ([id number]) 1980 F [facility] Date Time Provider Department 08/10/24 1:00 PM NGUYEN KURTZ During your visit today, we recorded the following information about you: Pulse Blood pressure Weight 86/minute 113/76 81 kg Nguyen Kurtz APRN.CLERICAL RECEPTIONIST 08/10/2024 1:14 PM Signed Chief Complaint Patient presents with: Follow Up HPI Speedy Blackwood is a 44 year old female who presents here today for Above Complaints.. Patient presents for follow up. Patient had PE in January and hs been treated with eliquis since then. Patient initially had slightly abnormal hypercoag panel but was evaluated by rheum who repeated labs and everything was negative. Reports she stopped smoking the day she was diagnosed with PE. Past medical history, appointments, medications, allergies reviewed. [...] ? abnormal CBD LIGATE FALLOPIAN TUBE Bilateral 2016 PAST SURGICAL HISTORY OF dental extraction Family History FAMILY HISTORY Problem Relation Age of Onset Alcohol/Drug Mother Alcohol/Drug Father Cancer Mother LIVER CANCER Cancer Father ESOPHAGEAL CANCER Cancer Maternal Grandmother LIVER CANCER Cancer Paternal Uncle LUNG CANCER Diabetes Paternal Grandmother Emphysema Mother Seizures Maternal Grandfather Patient Allergies ALLERGIES No Known Allergies Current Medications Current Outpatient Medications on File Prior to Visit Medication Sig omeprazole (PRILOSEC) 20 mg capsule venlafaxine ER (EFFEXOR XR) 37.5 mg 24 hr capsule gabapentin (NEURONTIN) 100 mg capsule Take 1 capsule by mouth every other day for 90 days. ELIQUIS DVT-PE TREAT 30D START 5 mg (74 tabs) apixaban (ELIQUIS) 5 mg tab(s) Take 1 tablet by mouth two times a day. Patient should start on February 16, 2024. No current facility-administered medications on file prior to visit. Social History Social History Tobacco Use Smoking status: Every Day Current packs/day: 0.50 Average packs/day: 0.5 packs/day for 20.0 years (10.0 ttl pk-yrs) Types: Cigarettes Smokeless tobacco: Never Vaping Use Vaping status: current everyday user Substances: Nicotine, Flavoring Devices: Disposable Substance Use Topics Alcohol use: Yes Comment: rare Drug use: Not Currently Types: Marijuana Review of Symptoms REVIEW OF SYSTEMS SEE HPI EXAM: BP 113/76 Pulse 86 Wt 81 kg (178 lb 9.2 oz) LMP 08/15/2018 BMI 30.65 kg/m? General Appearance: Well appearing, alert, in no acute distress, well-hydrated, well nourished. Lungs: Lungs clear to auscultation. No wheezing, rhonchi, rales.. Heart: RRR without murmur, gallop, or rubs. No ectopy. Peripheral Pulses: Normal. Health Maintenance List Anxiety Screening Never done Hepatitis C Screening Never done Pneumococcal Vaccine(1 of 2 - PCV) Never done Mammogram Screening due on 09/15/2023 Influenza Vaccine(1) Never done Covid-19 Vaccine( season) due on 01/15/2024 Colorectal Cancer Screening due on 03/28/2025 Diabetes Screening due on 09/13/2025 Cervical Cancer Screening due on 05/16/2027 Lipid Screening due on 09/14/2027 DTaP,Tdap,Td Vaccine(2 - Td or Tdap) due on 02/19/2032 HIV Screening Completed Hepatitis B Vaccine Discontinued ASSESSMENT/PLAN: 1. Acute pulmonary embolism, unspecified pulmonary embolism type, unspecified whether acute cor pulmonale present (HCC) - ICD9: 415.19, ICD10: I26.99 (primary diagnosis) -Resolved. Patient completed 6 months of eliquis. Ok to stop eliquis at this time. Continue smoking cessation 2. Lupus anticoagulant positive - ICD9: 795.79, ICD10: R76.0 -Resolved and cleared by Rheum 3. Encounter for screening mammogram for breast cancer - ICD9: V76.12, ICD10: Z12.31 - Set up for mammogram, yearly mammogram recommended - Encouraged monthly BSE - Follow up for annual exam in one year. - HENRI SCREENING W BENITEZ 4. Special screening examination for viral disease - ICD9: V73.99, ICD10: Z11.59 - HEPATITIS C ANTIBODY IA WITH CONFIRMATION Nguyen Kurtz APRN.CLERICAL RECEPTIONIST Allergies As of Date: 08/10/2024 (No Known Allergies) Date Reviewed: 08/10/2024 Reviewed by: Pratibha Ha MA - Fully Assessed Reason for Visit: Follow Up [171] Primary Visit Diagnosis:Acute pulmonary embolism, unspecified pulmonary embolism type, unspecified whether acute cor pulmonale present (HCC) [I26.99] Other Visit Diagnoses:Lupus anticoagulant positive [R (more content not included)... Normal [facility] HCV Ab Ser Qlon 08-10-2024 HCV Ab Ql (S) Negative Normal Negative [facility] Comment on above: Order Comment: Speci men Type: BLOOD SPECIMENOrdering Facility: [facility] Address: [address] [place] [address] Result Comment: The result suggests no evidence of infection with Hepatitis C virus. Should recent infection be suspected, repeat testing may be considered 4-6 weeks after this draw. Performed By: #### 1 [id number] ####[facility] LABCLIA [id number] [address] [place] CNOVon 04-30-2024 CNOV Office Visit (WSTR ) SPEEDY BLACKWOOD ([id number]) 1980 F [facility] Date Time Provider Department 04/30/24 7:45 AM DOUG VERNON [facility] During your visit today, we recorded the following information about you: Temperature Pulse Respiration Blood pressure 98 degrees 98/minute 16/minute 110/72 Weight 79.5 kg Doug Vernon, LUCERO.CLERICAL RECEPTIONIST 04/30/2024 8:05 AM Signed Subjective HPI Nontoxic-appearing female presents urgent care chief complaint rash. Duration of symptoms 4 days. Associated symptoms slightly pruritic and painful rash on right torso area. Most bothersome symptom today is pain. OTC medications none. No recent lifestyle or medication changes. No recent antibiotic use. Past medical history prescription medications allergies reviewed. Has had chickenpox in the past. .Patient presents with: Rash: right side abdominal area x 4 days, burning and itching PAST MEDICAL HISTORY Diagnosis Date Abdominal pain, right upper quadrant Dysthymic disorder Depression (non-psychotic) Low iron Lumbosacral radiculopathy at L4 02/2014 Migraine without aura Nonspecific elevation of levels of transaminase or lactic acid dehydrogenase (LDH) Scoliosis PAST SURGICAL HISTORY Procedure Laterality Date LAPS SURG CHOLECYSTECTOMY W/CHOLANGIOGRAPHY 12/15/2007 ? abnormal CBD LIGATE FALLOPIAN TUBE Bilateral 2015 PAST SURGICAL HISTORY OF dental extraction ALLERGIES Patient has no known allergies. MEDICATIONS omeprazole (PRILOSEC) 20 mg capsule venlafaxine ER (EFFEXOR XR) 37.5 mg 24 hr capsule gabapentin (NEURONTIN) 100 mg capsule Take 1 capsule by mouth every other day for 90 days. apixaban (ELIQUIS) 5 mg tab(s) Take 1 tablet by mouth two times a day. Patient should start on February 16, 2024. ELIQUIS DVT-PE TREAT 30D START 5 mg (74 tabs) FAMILY HISTORY Problem Relation Age of Onset Alcohol/Drug Mother Alcohol/Drug Father Cancer Mother LIVER CANCER Cancer Father ESOPHAGEAL CANCER Cancer Maternal Grandmother LIVER CANCER Cancer Paternal Uncle LUNG CANCER Diabetes Paternal Grandmother Emphysema Mother Seizures Maternal Grandfather Social History Tobacco Use Smoking status: Every Day Current packs/day: 0.50 Average packs/day: 0.5 packs/day for 20.0 years (10.0 ttl pk-yrs) Types: Cigarettes Smokeless tobacco: Never Vaping Use Vaping status: current everyday user Substances: Nicotine, Flavoring Devices: Disposable Substance Use Topics Alcohol use: Yes Comment: rare Drug use: Not Currently Types: Marijuana BP 110/72 Pulse 98 Temp 36.7 ?C (98 ?F) Resp 16 Wt 79.5 kg (175 lb 4.3 oz) LMP 08/15/2018 SpO2 98% BMI 30.08 kg/m? Review of Systems Constitutional: Negative for chills, fever and malaise/fatigue. HENT: Negative for congestion, ear discharge, ear pain, sinus pain and sore throat. Eyes: Negative for blurred vision, pain, discharge and redness. Respiratory: Negative for cough, hemoptysis, sputum production, shortness of breath, wheezing and stridor. Cardiovascular: Negative for chest pain. Gastrointestinal: Negative for abdominal pain, diarrhea, nausea and vomiting. Musculoskeletal: Negative for myalgias. Skin: Positive for itching and rash. Neurological: Negative for dizziness and headaches. Objective Physical Exam Constitutional: General: She is not in acute distress. Appearance: She is not diaphoretic. HENT: Head: Normocephalic. Jaw: No trismus, tenderness, swelling or pain on movement. Mouth/Throat: Mouth: Mucous membranes are moist. Pharynx: Oropharynx is clear. Uvula midline. No pharyngeal swelling, oropharyngeal exudate, posterior oropharyngeal erythema or uvula swelling. Eyes: Conjunctiva/sclera: Conjunctivae normal. Pupils: Pupils are equal, round, and reactive to light. Cardiovascular: Rate and Rhythm: Normal rate and regular rhythm. Heart sounds: Normal heart sounds. Pulmonary: Effort: Pulmonary effort is normal. No tachypnea, accessory muscle usage or respiratory distress. Breath sounds: Normal breath sounds. No stridor. No wheezing, rhonchi or rales. Musculoskeletal: Cervical back: Normal range of motion and neck supple. No edema, erythema, rigidity or tenderness. No pain with movement. Normal range of motion. Lymphadenopathy: Cervical: No cervical adenopathy. Skin: General: Skin is warm and dry. Comments: Maculopapular rash fluid-filled vesicles and patches noted highlighted area. Does not cross midline. Rash is blanching. No mucosal membrane involvement or desquamation of skin. Neurological: Mental Status: She is alert and oriented to person, place, and time. ASSESSMENT/PLAN: 1. Rash - ICD9: 782.1, ICD10: R21 Diagnosed with rash. Suspicious of shingles. GFR 111 in September of last year. Placed on Valtrex. Patient was educated on supportive therapies. Patient will follow up wit (more content not included)... Normal [facility] L7000.0750on 04-19-2024 P ELASTASE,FECA Normal [facility] Comment on above: Result Comment: TEST RESULTS LIMITS Pancreatic Elastase, Fecal >800 ug Elast./g >200 Severe Pancreatic Insufficiency: <100 Moderate Pancreatic Insufficiency: 100 - 200 Normal: >200 TESTING PERFORMED AT [facility]. ORIGINAL REPORT ON FILE IN LAB CONTAINS ADDITIONAL TEST SITE INFORMATION. Performed By: #### L 7000.0750, M100.637, L7000.0700, M100.0605 ####[facility] [id number] [place], [address] Calprotectin, Stoolon [address] Normal [facility] Comment on above: Result Comment: TEST RESULTS LIMITS Calprotectin, Fecal <5 ug/g 0-120 Concentration Interpretation Follow-Up < 5 - 50 ug/g Normal None >50 -120 ug/g Borderline Re-evaluate in 4-6 weeks >120 ug/g Abnormal Repeat as clinically indicated TESTING PERFORMED AT [facility]. ORIGINAL REPORT ON FILE IN LAB CONTAINS ADDITIONAL TEST SITE INFORMATION. Performed By: #### L 7000.0750, M100.637, L7000.0700, M100.0605 ####[facility] [id number] [place], [address] Colonoscopy Reporton 024 Colonoscopy Report [facility] Medical Records Department [address] [place] [address] Colonoscopy Report MR#: [id number] Acct: [id number] Name: SPEEDY BLACKWOOD Rep #: [id number] : 1980 43 From: Jovan Hidalgo DO PCP: CONRAD Miller Status:[facility] Patient Name: Speedy Blackwood Procedure Date: 03/28/2024 2:18 PM Date of : 1980 Age: 43 Procedure: Colonoscopy Indications: This is the patient's first colonoscopy, Chronic diarrhea Providers: Jovan Hidalgo DO Referring MD: Conrad Miller Medicines: Monitored Anesthesia Care Patient Profile: This is a 43 year old female. Refer to note in patient chart for documentation of history and physical. Patient has symptoms of chronic dysphagia, chronic dyspepsia, chronic heartburn, chronic nausea and chronic vomiting. Last Colonoscopy: none. The patient's first colonoscopy is today. Complications: No immediate complications. Procedure: Pre-Anesthesia Assessment: - Prior to the procedure, a History and Physical was performed, and patient medications and allergies were reviewed. The patient is competent. The risks and benefits of the procedure and the sedation options and risks were discussed with the patient. All questions were answered and informed consent was obtained. Patient identification and proposed procedure were verified by the physician in the pre-procedure area. Mental Status Examination: alert and oriented. Airway Examination: normal oropharyngeal airway and neck mobility. Respiratory Examination: clear to auscultation. CV Examination: normal. Prophylactic Antibiotics: The patient does not require prophylactic antibiotics. Prior Anticoagulants: The patient has taken no anticoagulant or antiplatelet agents except for NSAID medication. ASA Grade Assessment: II - A patient with mild systemic disease. After reviewing the risks and benefits, the patient was deemed in satisfactory condition to undergo the procedure. The anesthesia plan was to use monitored anesthesia care (MAC). Immediately prior to administration of medications, the patient was re-assessed for adequacy to receive sedatives. The heart rate, respiratory rate, oxygen saturations, blood pressure, adequacy of pulmonary ventilation, and response to care were monitored throughout the procedure. The physical status of the patient was re-assessed after the procedure. After I obtained informed consent, the scope was passed under direct vision. Throughout the procedure, the patient's blood pressure, pulse, and oxygen saturations were monitored continuously. The pediatric colonoscope was introduced through the anus and advanced to the cecum, identified by appendiceal orifice and ileocecal valve. The colonoscopy was performed without difficulty. The patient tolerated the procedure well. The quality of the bowel preparation was adequate. The terminal ileum, ileocecal valve, appendiceal orifice, and rectum were photographed. Scope In: 2:20:38 PM Scope Withdrawal Time 0 hours 6 minutes 51 seconds Scope Out: 2:34:30 PM Total Procedure Duration Time 0 hours 13 minutes 52 seconds Findings: The perianal and digital rectal examinations were normal. An area of mildly congested mucosa was found in the entire colon. Biopsies were taken with a cold forceps for histology. Verification of patient identification for the specimen was done. Estimated blood loss was minimal. The terminal ileum appeared normal. Biopsies were taken with a cold forceps for histology. Verification of patient identification for the specimen was done. Estimated blood loss was minimal. Impression: - Congested mucosa in the entire examined colon. Biopsied. - The examined portion of the ileum was normal. Biopsied. Recommendation: - Discharge patient to home. - Resume previous diet. - Continue present medications. - Await pathology results. - Repeat colonoscopy for surveillance based on pathology results. Procedure Code(s): --- Professional --- 91904, Colonoscopy, flexible; with biopsy, single or multiple CPT copyright 2021 [employer]. All rights reserved. The codes documented in this report are preliminary and upon punchboard filling machine operator review may be revised to meet current compliance requirements. Jovan Hidalgo DO 03/28/2024 2:46:11 PM This report has been signed electronically. Number of Addenda: 0 Note Initiated On: 03/28/2024 2:18 PM 03/28/24 1446 Date Jovan Hidalgo DO Cosigner Signature: Date (if indicated) CC: CONRAD Kurtz; Jovan Hidalgo DO Date Dictated: 03/28/24 1418 Date Transcribed: Contracting Analyst: PATRICE Signed Normal [facility] EGD Reporton 03-28-2024 EGD Report [facility] Medical Records Department [address] [place] [address] EGD Report MR#: [id number] Acct: [id number] Name: SPEEDY BLACKWOOD Rep #: [id number] : 1980 43 From: Jovan Hidalgo DO PCP: CONRAD Miller Status:[facility] Patient Name: Speedy Blackwood Procedure Date: 03/28/2024 2:03 PM Date of : 1980 Age: 43 Procedure: Upper GI endoscopy Indications: Dysphagia Providers: Jovan Hidalgo DO Referring MD: Conrad Miller Medicines: Monitored Anesthesia Care Patient Profile: This is a 43 year old female. Refer to note in patient chart for documentation of history and physical. Patient has symptoms of chronic dysphagia, chronic dyspepsia, chronic heartburn, chronic nausea and chronic vomiting. Complications: No immediate complications. Procedure: Pre-Anesthesia Assessment: - Prior to the procedure, a History and Physical was performed, and patient medications and allergies were reviewed. The patient is competent. The risks and benefits of the procedure and the sedation options and risks were discussed with the patient. All questions were answered and informed consent was obtained. Patient identification and proposed procedure were verified by the physician in the pre-procedure area. Mental Status Examination: alert and oriented. Airway Examination: normal oropharyngeal airway and neck mobility. Respiratory Examination: clear to auscultation. CV Examination: normal. Prophylactic Antibiotics: The patient does not require prophylactic antibiotics. Prior Anticoagulants: The patient has taken no anticoagulant or antiplatelet agents except for NSAID medication. ASA Grade Assessment: II - A patient with mild systemic disease. After reviewing the risks and benefits, the patient was deemed in satisfactory condition to undergo the procedure. The anesthesia plan was to use monitored anesthesia care (MAC). Immediately prior to administration of medications, the patient was re-assessed for adequacy to receive sedatives. The heart rate, respiratory rate, oxygen saturations, blood pressure, adequacy of pulmonary ventilation, and response to care were monitored throughout the procedure. The physical status of the patient was re-assessed after the procedure. After obtaining informed consent, the endoscope was passed under direct vision. Throughout the procedure, the patient's blood pressure, pulse, and oxygen saturations were monitored continuously. The pediatric colonoscope was introduced through the mouth, and advanced to the second part of duodenum. The upper GI endoscopy was accomplished without difficulty. The patient tolerated the procedure well. Scope In: 2:11:27 PM Scope Out: 2:18:42 PM Total Procedure Duration Time 0 hours 7 minutes 15 seconds Findings: Mucosal changes including ringed esophagus, feline appearance, longitudinal furrows, small-caliber esophagus and white plaques were found in the lower third of the esophagus. Biopsies were obtained from the proximal and distal esophagus with cold forceps for histology of suspected eosinophilic esophagitis. A guidewire was placed and the scope was withdrawn. Dilation was performed with a Savary dilator with no resistance at 60 Fr. The dilation site was examined and showed moderate improvement in luminal narrowing. Estimated blood loss was minimal. A small hiatal hernia was present. Diffuse mildly erythematous mucosa without bleeding was found in the stomach. Patchy mildly erythematous mucosa without active bleeding and with no stigmata of bleeding was found in the duodenal bulb and in the first portion of the duodenum. Biopsies were taken with a cold forceps for histology. Verification of patient identification for the specimen was done. Estimated blood loss was minimal. Impression: - Esophageal mucosal changes consistent with eosinophilic esophagitis. Dilated. - Small hiatal hernia. - Erythematous mucosa in the stomach. - Erythematous duodenopathy. Biopsied. - Biopsies were taken with a cold forceps for evaluation of eosinophilic esophagitis. Recommendation: - Discharge patient to home. - Resume previous diet. - Use Prilosec (omeprazole) 40 mg PO daily. - Continue present medications. Procedure Code(s): --- Professional --- 31694, Esophagogastroduodenosc opy, flexible, transoral; with insertion of guide wire followed by passage of dilator(s) through esophagus over guide wire 86745, 59,51, Esophagogastroduodenosc opy, flexible, transoral; with biopsy, single or multiple CPT copyright 2021 [employer]. All rights reserved. The codes documented in this report are preliminary and upon punchboard filling machine operator review may be revised to meet current compliance requirements. Jovan Hidalgo DO 03/28/2024 2:44:35 PM This report has been signed electronical (more content not included)... Normal [facility] MR/POSTOP.[facility] 03-28-2024 MR/POSTOP.[facility] Medical Records Department [address] [place] [address] Anesthesia Postop Eval I 03/28/24 1442 MR#: [id number] Acct: [id number] Name: SPEEDY BLACKWOOD Rep #: [id number] : 1980 43 From: Arjun Waterman PCP: CONRAD Miller Status:REG SDC Y Race: C Location: [place] [address] Anesthesia: Postop Eval I Current Vital Signs Temperature: 97.4 F Pulse Rate: 74 Blood Pressure: 124/105 Respiratory Rate: 16 Pulse Ox: 98 Oxygen Delivery Method: Room Air Assessment Airway patent: Yes Spontaneous unlabored respirations: Yes Mental status: Asleep nausea: No Vomiting: No Anesthesia Complication: No Fluid Hydration Crystalloid volume administer (ml): 60 Total IV fluid infused: 60 Progress Note Anesthesia document: Postop Eval 1 completed: Yes 03/28/24 1516 Date Arjun Loya Signature: Date CC: Signed Normal [facility] MR/[id number] 03-28-2024 MR/POSTOPAN2 [facility] Medical Records Department [address] [place] [address] Anesthesia Postop Eval II 03/28/24 1632 MR#: [id number] Acct: [id number] Name: SPEEDY BLACKWOOD Rep #: [id number] : 1980 43 From: Phil Pinto MD PCP: Nguyen Kurtz NP-C Status:[facility] Y Race: C Location: [place] Anesthesia Postop Eval I Sum Postop Eval Completion status Anesthesia document: Postop Eval 1 completed: Yes Anesthesia Postop Eval I Summary Anesthesia Postop Eval I Summary: Anesthesia Postop Eval I: Assessment Summary Airway patent Yes 03/28/24 14:43 [email or web address] Spontaneous unlabored Yes 03/28/24 14:43 [email or web address] respirations Mental status Asleep 03/28/24 14:43 [email or web address] nausea No 03/28/24 14:43 [email or web address] Vomiting No 03/28/24 14:43 [email or web address] Anesthesia Postop Eval I: Fluid Summary Crystalloid volume administer 60 03/28/24 14:43 [email or web address] (ml) Colloids volume administered ( ml) Blood Product volume administered (ml) Total IV fluid infused 60 03/28/24 14:43 [email or web address] Anesthesia Postop Eval I: Summary Notes Anesthesia Complication No 03/28/24 14:43 [email or web address] Anesthesia Complication Comment: Post-operative progress note Anesthesia: Postop Eval II Evaluation Mental status: Awake and Calm Pain Level: 0 nausea: No Vomiting: No Complications Anesthesia Complication: No 03/28/24 1633 Date Phil Loya Signature: Date CC: Signed Normal [facility] Special Stain Group Ion 11-1 Special Stain Group I ----- Patient Age/Sex Location Account Attending Physician SPEEDY BALCKWOOD 43/F EN [id number] Jovan Hidalgo DO Specimen: [id number] Received: 03/29/24 Status: YELENA Boyle Num: [id number] Spec Type: EGD BIOPSY Subm Dr: Jovan Hidalgo, DO HEADER OPERATION: Colonoscopy, EGD with biopsy, dilatation PRE-OP DIAGNOSIS: Incontinence of feces, diarrhea TISSUE SUBMITTED: A- Distal esophagus biopsy, B- Terminal ileum biopsy, C- Random colon biopsy MICROSCOPIC DIAGNOSIS A. Distal esophagus, biopsy: Fragments of gastroesophageal mucosa with acute and chronic inflammation and changes consistent with gastroesophageal reflux disease. Intestinal metaplasia (goblet cell metaplasia) not identified. See comment. B. Terminal ileum, biopsy: A fragment of small intestinal mucosa, no pathologic diagnosis. See comment. C. Colon, random biopsy: Fragments of colonic mucosa, no pathologic diagnosis. See comment. LJ.mr 03/30/2024 COMMENT A. Alcian blue/PAS stain with matched control is used in the evaluation of the specimen. The specimen predominantly consists of squamous mucosa. Increased number of eosinophils consistent with eosinophilic esophagitis are not seen. B. Prominent lymphoid aggregates are noted. C. A minute fragment of unremarkable small intestinal mucosa is also noted. Correlation with clinical, endoscopic findings and appropriate follow up are necessary. MICROSCOPIC DESCRIPTION Slides are reviewed. GROSS DESCRIPTION A. Received in fixative is one container labeled with the patient's name and designated Distal esophagus biopsy." The specimen consists of multiple irregular fragments of light irwin soft tissue that in aggregate measure 2.0 x 0.3 x 0.1 cm. The specimen is totally submitted in one cassette. B. Received in fixative is one container labeled with the patient's name and designated Terminal ileum biopsy." The specimen consists of one irregular fragment of light irwin soft tissue that measures 0.6 x 0.2 x 0.1 cm. The specimen is totally submitted in one cassette. Patient Age/Sex Location Account Attending Physician SPEEDY BLACKWOOD EN [id number] Jovan Hidalgo, DO C. Received in fixative is one container labeled with the patient's name and designated Random colon biopsy. The specimen consists of multiple irregular fragments of light irwin soft tissue that in aggregate measure 1.2 x 0.5 x 0.1 cm. The specimen is totally submitted in one cassette. 03/29/2024 TC:3 CPT:12382y8,44589 Patient Age/Sex Location Account Attending Physician SPEEDY BLACKWOOD EN [id number] Jovan Hidalgo DO Signed (signature on file) Dr. Freddy Black MD 03/30/24 1105 Normal [facility] Comment on above: Performed By: #### P SSI ####[facility] [id number] [place], [place], [id number] ENTERIC PATHOGEN PANEL STOOL on 03-21-2024 EP PANEL OFFICE CALLED. LEFT MESSAGE FOR THE, TO RETURN CALL 03/19/24 1340 VSICK REPORT HAND DELIVERED TO OFFICE 03/20/24 0920 VSICK Normal Reference Range = Not Detected GI pathogens Pnl Stl CHITO+probe Copy of report sent to Infection Control Printer [id number] 03/19/24 1341 VSICK. SAMPLE FORWARDED TO [facility]. GI pathogens Pnl Stl CHITO+probe RESULTS CALLED TO NURSE 03/19/24 1300 VS. Campylobacter species detected to include one or more of the following: C. coli, C. jejuni, and C. gualberto. Susceptibility testing not routinely performed. Most Campylobacter infections are self-limiting but antimicrobial treatment (eg. macrolides, fluoroquinolones) may be needed in systemic cases or in severe or prolonged cases. ID consult is recommended in these cases. This is an amplified DNA test which makes it both specific and sensitive. GI pathogens Pnl Stl CHITO+probe Salmonella species detected. Susceptibility testing not routinely performed but can be completed at the request by the ordering physician. Treatment is often not needed in many cases. This is an amplified DNA test which makes it both specific and sensitive. GI pathogens Pnl Stl CHITO+probe [facility] GI pathogens Pnl Stl CHITO+probe NO SALMONELLA FOUND GI pathogens Pnl Stl CHITO+probe NO CAMPYLOBACTER FOUND. GI pathogens Pnl Stl CHITO+probe NOTE: Optimal recovery of enteric pathogens is dependent on proper handling and transport of samples with minimal delay. Interpret NO Growth or Normal Fecal Liz with consideration to patient treatment history and clinical presentation/symptoms. CAMPYLOBACTER A Campylobacter sp. Detected A Norovirus Not Detected Rotavirus Not Detected Salmonella A Salmonella sp. Detected A Shiga Toxin Not Detected Shigella sp. Not Detected VIBRIO Not Detected Yersinia Not Detected Campylobacter species Salmonella Sp. * This is an amended result. * A prior result that was reported as final has been changed. 03/26/24 1242 by YAZAN Previously reported as: final Normal [facility] Comment on above: Performed By: #### L 7000.0750, M100.637, L7000.0700, M100.0605 ####[facility] [id number] [place], [place], [address] BETA 2 GLYCOPROTEIN 1, IGAon 03-20-2024 BETA 2 GLYCOPROTEIN 1, IGA <10 Normal <=20 [facility] Comment on above: Order Comment: Speci men Type: BLOOD SPECIMEN Ordering Facility: [facility] Address: [address] [place] [address] Result Comment: Perf ormed By: [facility] [address] [place] [id number] Learning Consultant: Ciro Horn MD, PhD CLIA Number: [id number] Performed By: #### P TGEN #### [facility] CLIA [id number] [address] [place], [place] [address] [place] [address] [place] BETA 2 GLYCOPROTEIN, IGGon 1 05-20-2023 Beta 2 glycoprotein 1 IgG IA Qn <9 Normal <20 [facility] Comment on above: Order Comment: Speci men Type: BLOOD SPECIMEN Ordering Facility: [facility] Address: [address] [place] [address] Result Comment: <20 SGU Negative 20-80 SGU Low Positive >80 SGU High Positive These results were obtained with the [employer] QUANTA Lite B2 GPI IgG HANNAH. B2 GPI IgG values obtained with different manufacturers' assay methods may not be used interchangeably. The magnitude of the reported IgG levels cannot be correlated to an endpoint titer. Performed By: #### P TGEN #### [facility] ILLUMINA LIMS CLIA [id number] [address] [place] [address] [place] BETA 2 GLYCOPROTEIN, IGMon 1 05-20-2023 Beta 2 glycoprotein 1 IgM IA Qn <9 Normal <20 [facility] Comment on above: Order Comment: Rosendo zuleta Type: BLOOD SPECIMEN Ordering Facility: [facility] Address: [address] [place] [address] Result Comment: <20 SMU Negative 20-80 SMU Low Positive >80 SMU High positive These results were obtained with the [employer] QUANTA Lite B2 GPI IgM HANNAH. B2 GPI IgM values obtained with different manufacturers' assay methods may not be used interchangeably. The magnitude of the reported IgM levels cannot be correlated to an endpoint titer. Performed By: #### P TGEN #### [facility] ILLUM[facility]S CLIA [id number] [address] [place] [address] [place] C3 SerPl-mCncon 03-20-2024 Complement C3 [Mass/Vol] 189 mg/dL High 86-166 [facility] Comment on above: Order Comment: Rosendo zuleta Type: BLOOD SPECIMENOrdering Facility: [facility] Address: [address] [place] [address] Performed By: #### 4 485-9, 4498-2, 63359-5 ####[facility] LABCLIA [id number] [place] [address] [place] C4 SerPl-mCncon 03-20-2024 Complement C4 [Mass/Vol] 19 mg/dL Normal 13-46 [facility] Comment on above: Order Comment: Speci men Type: BLOOD SPECIMENOrdering Facility: [facility] Address: [address] [place] [address] Performed By: #### 4 485-9, 4498-2, 23225-1 ####[facility] LABCLIA [id number] [address] [place] CARDIOLIPIN IGG ABSon 2023 Cardiolipin IgG IA Qn (S) <9.0 Normal <15.0 [facility] Comment on above: Order Comment: Speci men Type: BLOOD SPECIMEN [facility] Address: [address] [place] [address] Result Comment: <15 GPL Negative 15-20 GPL Indeterminate >20 GPL Positive The following results were obtained with the [employer] QUANTA Lite KALYAN IgG III HANNAH. Cardiolipin IgG values obtained with the different manufacturers' assay methods may not be used interchangeably. The magnitude of the reported IgG levels cannot be correlated to an endpoint titer. Performed By: #### P TGEN #### CLARITY ILLUMINA LIMS CLIA [id number] [address] [place] [address] [place] CARDIOLIPIN IGM ABSon 2023 Cardiolipin IgM IA Qn (S) 9.5 MPL Normal <12.5 [facility] Comment on above: Order Comment: Speci song Type: BLOOD SPECIMEN [facility] Address: [address] [place] [address] Result Comment: <12. 5 MPL Negative 12.5-20 MPL Indeterminate >20 MPL Positive The following results were obtained with the [employer] QUANTA Lite KALYAN IgM III HANNAH. Cardiolipin IgM values obtained with the different manufacturers' assay methods may not be used interchangeably. The magnitude of the reported IgM levels cannot be correlated to an endpoint titer. ??? Performed By: #### P TGEN #### [facility] ILLUMINA LIMS CLIA [id number] [address] [place] [address] [place] CNOVon 03-20-2024 CNOV Office Visit (LIDA ) SPEEDY BLACKWOOD ([id number]) 1980 F [facility] Date Time Provider Department 03/20/24 1:00 PM JUSTIN WHITESIDE During your visit today, we recorded the following information about you: Pulse Blood pressure Weight Height 91/minute 119/71 75.3 kg 1.626 m Justin Whiteside MD 03/20/2024 2:11 PM Signed Justin Whiteside MD Speedy Blackwood March 19, 2024 Referring Provider:Nguyen Kurtz PCP: Nguyen Kurtz APRN.CLERICAL RECEPTIONIST Chief Complaint: Patient presents with: Consult HPI:Speedy Blackwood is a 43 year old female who comes here today for positive anticardiolipin. Patient was diagnosed with PE 01/17/24 by local emergency room after she presented with chest pain and dyspnea. She was started on Eliquis. She is doing better now. Chest pain is gone. Dyspnea is minimal. Patient reports she quit smoking when she was diagnosed with PE. She was subsequently seen by her PCP who ordered her s. she was found to have positive anticardiolipin IgM at low titer. Therefore, the patient is referred to see me today. This the first time that she is ever diagnosed with PE. No prior history of PE or DVT. No history of miscarriage. Review of system is negative for -Inflammatory eye disease -Sicca symptoms -Raynaud's -Pleurisy -Recurrent oral or nasal ulcer -Inflammatory joint pain -Photosensitivity -Alopecia The patient denies family history of RA, SLE, , psoriasis, IBD, uveitis, other autoimmune diseases. PAST MEDICAL HISTORY Diagnosis Date Abdominal pain, right upper quadrant Dysthymic disorder Depression (non-psychotic) Low iron Lumbosacral radiculopathy at L4 02/2014 Migraine without aura Nonspecific elevation of levels of transaminase or lactic acid dehydrogenase (LDH) Scoliosis PAST SURGICAL HISTORY Procedure Laterality Date LAPS SURG CHOLECYSTECTOMY W/CHOLANGIOGRAPHY 12/15/2007 ? abnormal CBD LIGATE FALLOPIAN TUBE Bilateral 2015 PAST SURGICAL HISTORY OF dental extraction Social History Tobacco Use Smoking status: Every Day Current packs/day: 0.50 Average packs/day: 0.5 packs/day for 20.0 years (10.0 ttl pk-yrs) Types: Cigarettes Smokeless tobacco: Never Vaping Use Vaping status: current everyday user Substances: Nicotine, Flavoring Devices: Disposable Substance Use Topics Alcohol use: Yes Comment: rare Drug use: Not Currently Types: Marijuana Health Maintenance: Pneumococcal Vaccine(1 of 2 - PCV) Never done Anxiety Screening Never done Hepatitis C Screening Never done Colorectal Cancer Screening Never done Mammogram Screening due on 09/15/2023 Influenza Vaccine(1) Never done Covid-19 Vaccine(2023- season) due on 01/15/2024 Immunization History Administered Date(s) Administered COVID-19 original vaccine, full dose, monovalent (MODERNA) 10/02/2020 10/30/2020 12/11/2021 measles mumps rubella (MMR) vaccine (M-M-R II, PRIORIX) 01/08/2012 Current Outpatient Medications Medication Sig Dispense Refill gabapentin (NEURONTIN) 100 mg capsule Take 1 capsule by mouth every other day for 90 days. 45 capsule 0 ELIQUIS DVT-PE TREAT 30D START 5 mg (74 tabs) apixaban (ELIQUIS) 5 mg tab(s) Take 1 tablet by mouth two times a day. Patient should start on February 16, 2024. 180 tablet 1 albuterol HFA (PROVENTIL HFA, VENTOLIN HFA) 90 mcg/actuation inhaler Inhale 2 Puffs as instructed every 4 hours as needed for wheezing/shortness of breath. 18 g 0 cloNIDine HCl (CATAPRES) 0.1 mg tablet Take 0.1 mg by mouth daily at bedtime. FLUoxetine (PROZAC) 20 mg capsule Take 1 capsule by mouth once daily. 30 capsule 3 Cholecalciferol, Vitamin D3, 2,000 unit cap Take 1 capsule by mouth daily at bedtime. L.ACID/L.CASEI/B.BIF/B. KAVYA/FOS (PROBIOTIC BLEND ORAL) Take 1 capsule by mouth once daily. No current facility-administered medications for this visit. ALLERGIES No Known Allergies Physical Exam: BP 119/71 Pulse 91 Ht 5' 4" (1.63m) Wt 166 lb (75.3kg) LMP 08/15/2018 BMI 28.48 kg/(m2). General: Not pale, no jaundice, not in acute distress Head: Normocephalic, atraumatic Eyes: No redeye, no discharge ENT: No oral/nasal ulcer Neck: No lymphadenopathy Lungs: Normal breath sound, no adventitious sound Abdomen: Soft, not tender CV: Normal S1 S2, no murmur, no rub, pulse regular Skin: No rash, no malar rash, no telangiectasia, no pitting nail/onycholysis, no gross periungual telangiectasia Neuro: Grossly intact, motor power 5 all Joints LEFT Shoulder Full ROM, not tender Elbow Full ROM, not tender, not swollen Wrist Full ROM, not tender, not swollen 2nd MCP Not tender, not swollen 3rd MCP Not tender, not swollen 4th MCP Not tender, not swollen 5th MCP Not tender, not swollen 1st IP Not tender, not swollen 2nd PIP Not tender, not swollen 3rd PIP Not tender, not swollen 4th PIP Not tender (more content not included)... Normal [facility] Cardiolipin IgA Ser IA-aCnco n 03-20-2024 Cardiolipin IgA IA Qn (S) <9.0 Normal <12.0 [facility] Comment on above: Order Comment: Rosendo zuleta Type: BLOOD SPECIMEN [facility] Address: [address] [place] [address] Result Comment: <12 APL Negative 12-20 APL Indeterminate >20 APL Positive The following results were obtained with the [employer] QUANTA Lite KALYAN IgA III HANNAH. Cardiolipin IgA values obtained with the different manufacturers' assay methods may not be used interchangeably. The magnitude of the reported IgA levels cannot be correlated to an endpoint titer. Performed By: #### P TGEN #### CLARITY ILLUMINA LIMS CLIA [id number] [address] [place], [place] [address] [place] Centromere Ab IF Ql (S)on Centromere Ab Qn (S) <0.2 Normal <1.0 [facility] Comment on above: Order Comment: Rosendo zuleta Type: BLOOD SPECIMENOrdering Facility: [facility] Address: [address] [place] [address] Result Comment: Anti -centromere antibody is used as in aid in diagnosis of systemic sclerosis. Clinical correlation is required. Test Methodology: Multiplex flow immunoassay. Performed By: #### 1 8323-6, 23529-9, 07208-1, 52331-7, 43828-6, 17230-7 ####[facility] LABCLIA [id number] [address] [address] [place] CENTROMERE AB QUAL Negative Normal Negative [facility] Comment on above: Order Comment: Speci men Type: BLOOD SPECIMENOrdering Facility: [facility] Address: [address] [place] [address] Performed By: #### 1 8323-6, 46725-0, 43365-4, 52754-2, 58589-0, 05884-8 ####[facility] LABCLIA [id number] [place] [address] [place] Chromatin Ab Qnon 03-20-2024 CHROMATIN AB QUAL Negative Normal Negative [facility] Comment on above: Order Comment: Speci men Type: BLOOD SPECIMENOrdering Facility: [facility] Address: [address] [place] [address] Performed By: #### 2 9374-6, 80462-7, 71854-3 ####[facility] LABCLIA [id number] [place] [address] [place] Chromatin Ab SerPl-aCncon Chromatin Ab Qn <0.2 Normal <1.0 [facility] Comment on above: Order Comment: Speci men Type: BLOOD SPECIMENOrdering Facility: [facility] Address: [address] [place] [address] Result Comment: Test Methodology: Multiplex flow immunoassay. Performed By: #### 2 9374-6, 15026-1, 73159-5 ####[facility] LABCLIA [id number] [place] [address] [place] Cyclic citrullinated peptide IgG Qnon 03-20-2024 CCP ANTIBODY IGG QUALITATIVE Negative Normal Negative [facility] Comment on above: Order Comment: Speci men Type: BLOOD SPECIMEN [facility] Address: [address] [place] [address] Performed By: #### P TGEN #### CLARITY ILLUMINA LIMS CLIA [id number] [address] [place] [address] [place] DNA double strand Ab IA Qn ( S)on 03-20-2024 DNA ANTIBODY 8 IU/mL Normal <=200 [facility] Comment on above: Order Comment: Speci men Type: BLOOD SPECIMENOrdering Facility: [facility] Address: [address] [place] [address] Result Comment: Nega tive: <200 IU/mL Equivocal: 201-300 IU/mL Moderate Positive: 301-800 IU/mL Strong Positive: >801 IU/mL Performed By: #### 3 2677-7 ####[facility] LABCLIA [id number] [address] [place] DNA ANTIBODY QUALITATIVE INTERPRETATION Negative Normal Negative [facility] Comment on above: Order Comment: Speci men Type: BLOOD SPECIMENOrdering Facility: [facility] Address: [address] [place] [address] Performed By: #### 3 2677-7 ####[facility] LABCLIA [id number] [place] [address] [place] PRANAV Jo1 Ab Ser-aCncon 2023 Sarah-1 extractable nuclear Ab Qn (S) <0.2 Normal <1.0 [facility] Comment on above: Order Comment: Speci men Type: BLOOD SPECIMENOrdering Facility: [facility] Address: [address] [place] [address] Performed By: #### 1 8323-6, 48768-8, 55209-7, 68015-6, 92796-5, 03692-2 ####[facility] LABCLIA [id number] [place] [address] [place] PRANAV MACHINE CHOCOLATE MOLDER Ab Ser-aCncon 2023 Ribonucleoprotein extractable nuclear Ab Qn (S) <0.2 Normal <1.0 [facility] Comment on above: Order Comment: Speci men Type: BLOOD SPECIMENOrdering Facility: [facility] Address: [address] [place] [address] Performed By: #### 2 9374-6, 98343-9, 71908-7 ####[facility] LABIA [id number] [place] [address] [place] PRANAV SM IgG Ser-aCncon 2023 Rajput extractable nuclear IgG Qn (S) <0.2 Normal <1.0 [facility] Comment on above: Order Comment: Speci men Type: BLOOD SPECIMENOrdering Facility: [facility] Address: [address] [place] [address] Performed By: #### 1 8323-6, 27808-0, 34959-4, 05296-0, 33828-5, 14043-9 ####[facility] LABIA [id number] [place] [address] [place] PRANAV SS-A Ab Ser-aCncon 03-20 Sjogrens syndrome-A extractable nuclear Ab Qn (S) <0.2 Normal <1.0 [facility] Comment on above: Order Comment: Speci men Type: BLOOD SPECIMENOrdering Facility: [facility] Address: [address] [place] [address] Result Comment: Test Methodology: Multiplex flow immunoassay. Performed By: #### 2 9374-6, 98202-9, 09089-1 ####[facility] LABIA [id number] [place] [address] [place] PRANAV SS-B Ab Ser-aCncon 03-20 Sjogrens syndrome-B extractable nuclear Ab Qn (S) <0.2 Normal <1.0 [facility] Comment on above: Order Comment: Speci men Type: BLOOD SPECIMENOrdering Facility: [facility] Address: [address] [place] [address] Result Comment: Anti -SSB (anti-La) antibody is used as an aid in diagnosis of a variety of systemic autoimmune diseases, especially for Sjogren's syndrome and systemic lupus erythematosus. Clinical correlation is required. Test Methodology: Multiplex flow immunoassay. Performed By: #### 1 8323-6, 06201-8, 15250-3, 57689-1, 96105-3, 13465-5 ####[facility] LABCLIA [id number] [place] [address] [place] ESR Westergren method (Bld) [Velocity]on 03-20-2024 ESR (Bld) [Velocity] 2 mm/h [facility] Interpretation and review of laboratory results Normal [facility] ESR (Bld) [Velocity] 2 mm/h Normal 0-20 [facility] Comment on above: Order Comment: Rosendo zuleta Type: BLOOD SPECIMENOrdering Facility: [facility] Address: [address] [place] [address] Performed By: #### 4 537-7 ####[facility] LABIA [id number] [place] [address] [place] Sarah-1 extractable nuclear Ab Qn (S)on 03-20-2024 SARAH 1 ANTIBODY QUAL Negative Normal Negative [facility] Comment on above: Order Comment: Rosendo zuleta Type: BLOOD SPECIMENOrdering Facility: [facility] Address: [address] [place] [address] Result Comment: Anti -SARAH-1 antibody is used as an aid in diagnosis of polymyositis and dermatomyositis especially with pulmonary involvement. A negative result cannot rule out polymyositis or dermatomyositis. Clinical correlation is required. Test Methodology: Multiplex flow immunoassay. Performed By: #### 1 8323-6, 49367-4, 96828-1, 54485-2, 45939-1, 65372-3 ####[facility] LABCLIA [id number] [place] [address] [place] Nuclear Ab IA Ql (S)on 03-20 COLETTE SCR QUAL Negative Normal Negative [facility] Comment on above: Order Comment: Speci men Type: BLOOD SPECIMENOrdering Facility: [facility] Address: [address] [place] [address] Result Comment: The qualitative antinuclear antibody screen test performed using the following antigens: dsDNA, Chromatin, Ribosomal P, SS-A 60, SS-A 52, SS-B, Sm, SmRNP, MACHINE CHOCOLATE MOLDER A, MACHINE CHOCOLATE MOLDER 68, Scl-70, Sarah-1, and Centromere B. Methodology: Multiplex flow immunoassay. Performed By: #### 1 8323-6, 36023-8, 80737-7, 42609-6, 83732-5, 49292-5 ####[facility] LABIA [id number] [place] [address] [place] Rheumatoid fact SerPl-aCncon 03-20-2024 Rheumatoid factor Qn [IU]/mL Normal <16 [facility] Comment on above: Order Comment: Speci men Type: BLOOD SPECIMENOrdering Facility: [facility] Address: [address] [place] [address] Performed By: #### 4 485-9, 4498-2, 55165-0 ####[facility] LABIA [id number] [place] [address] [place] Ribonucleoprotein extractabl e nuclear Ab Qn (S)on 03-20-2024 ANTI-MACHINE CHOCOLATE MOLDER QUAL Negative Normal Negative [facility] Comment on above: Order Comment: Speci men Type: BLOOD SPECIMENOrdering Facility: [facility] Address: [address] [place] [address] Performed By: #### 2 9374-6, 12550-6, 44299-9 ####[facility] LABIA [id number] [place] [address] [place] RIBOSOMAL MACHINE CHOCOLATE MOLDER QUAL Negative Normal Negative [facility] Comment on above: Order Comment: Speci men Type: BLOOD SPECIMENOrdering Facility: [facility] Address: [address] [place] [address] Result Comment: Anti -Ribosomal RNA (Ribosomal P) antibody is used as an aid in diagnosis of systemic autoimmune diseases especially systemic lupus erythematosus and mixed connective tissue disease. Cross-reactivity with Anti-rjaput antibody is not uncommon. Clinical correlation is required. Test Methodology: Multiplex flow immunoassay. Performed By: #### 2 9374-6, 21250-3, 75197-9 ####[facility] LABIA [id number] [place] [address] [place] SCL-70 extractable nuclear I gG IA Qn (S)on 03-20-2024 SCLERODERMA AB QUAL Negative Normal Negative [facility] Comment on above: Order Comment: Rosendo zuleta Type: BLOOD SPECIMENOrdering Facility: [facility] Address: [address] [place] [address] Performed By: #### 1 8323-6, 07108-5, 62591-7, 46746-4, 50278-5, 68766-6 ####[facility] [id number] [place] [address] [place] SCLERODERMA IGG AB <0.2 Normal <1.0 [facility] Comment on above: Order Comment: Rosendo zuleta Type: BLOOD SPECIMENOrdering Facility: [facility] Address: [address] [place] [address] Result Comment: Scl- 70/Scleroderma antibody test is used as an aid in diagnosis of systemic sclerosis especially the diffuse cutaneous form. A negative result cannot rule out systemic sclerosis. The final interpretation should consider clinical picture and other test results such as anti-centromere antibody. Test Methodology: Multiplex flow immunoassay. Performed By: #### 1 8323-6, 85373-2, 50816-5, 33539-4, 42811-4, 99288-9 ####[facility] LABIA [id number] [place] [address] [place] Sjogrens syndrome-A extracta ble nuclear Ab Qn (S)on 03-20-2024 SSA ANTIBODY QUAL Negative Normal Negative [facility] Comment on above: Order Comment: Speci men Type: BLOOD SPECIMENOrdering Facility: [facility] Address: [address] [place] [address] Performed By: #### 2 9374-6, 06525-3, 54924-7 ####[facility] LABCLIA [id number] [place] [address] [place] Sjogrens syndrome-B extracta ble nuclear Ab Qn (S)on 03-20-2024 SSB ANTIBODY QUAL Negative Normal Negative [facility] Comment on above: Order Comment: Speci men Type: BLOOD SPECIMENOrdering Facility: [facility] Address: [address] [place] [address] Performed By: #### 1 8323-6, 82456-7, 19007-1, 04148-6, 21207-4, 69209-2 ####[facility] LABCLIA [id number] [place] [address] [place] Rajput extractable nuclear Ig G Qn (S)on 03-20-2024 SM ANTIBODY QUAL Negative Normal Negative [facility] Comment on above: Order Comment: Rosendo zuleta Type: BLOOD SPECIMENOrdering Facility: [facility] Address: [address] [place] [address] Result Comment: Anti -Sm (Rajput) antibody is used as an aid in diagnosis of systemic lupus erythematosus and its presence is associated with renal disease. A negative result cannot rule out systemic lupus erythematosus. Clinical correlation is required. Test Methodology: Multiplex flow immunoassay. Performed By: #### 1 8323-6, 70694-4, 68215-2, 13050-9, 15178-3, 85598-9 ####[facility] LABCLIA [id number] [place] [address] [place] cCP IgG SerPl-aCncon 024 Cyclic citrullinated peptide IgG Qn <15 Normal <20 [facility] Comment on above: Order Comment: Speci men Type: BLOOD SPECIMEN [facility] Address: [address] [place] [address] Performed By: #### P TGEN #### [facility] LAKESHIAID [id number] [address] [place] [address] [place] [address] [place] ENTERIC PATHOGEN PANEL STOOL on 03-19-2024 EP PANEL Normal Reference Ran ge = Not Detected GI pathogens Pnl Stl CHITO+probe Nucleic acid amplification test method Copy of report sent to Infection Control Printer [id number] 03/19/24 1341 VSICK. CAMPYLOBACTER A Campylobacter sp. Detected A Norovirus Not Detected Rotavirus Not Detected Salmonella A Salmonella sp. Detected A Shiga Toxin Not Detected Shigella sp. Not Detected VIBRIO Not Detected Yersinia Not Detected Campylobacter species Salmonella Sp. Normal [facility] Comment on above: Performed By: #### M 100.637, M100.0605 #### [facility] [address] [place], [address] Stool Lactoferrin/WBCon 11-0 WBCST Normal Reference Ran ge = Negative Fecal WBC Lactoferrin Negative: No Fecal WBC Lactoferrin present Normal [facility] Comment on above: Performed By: #### M 100.637, M100.0605 #### [facility] [address] [place], [address] WBCST OFFICE CALLED. LEFT MESSAGE FOR THE, TO RETURN CALL 03/19/24 1340 VSICK Normal Reference Range = Negative Fecal WBC Lactoferrin Negative: No Fecal WBC Lactoferrin present Normal [facility] Comment on above: Performed By: #### L 7000.0750, M100.637, L7000.0700, M100.0605 ####[facility] [id number] [place], [address] Gastroenterology Visit Repor ton 02-23-2024 Gastroenterology Visit Report [facility] [address] [place] [address] OFFICE VISIT Date of Service: 02/23/24 MR#: [id number] Acct: [id number] Name: SPEEDY BLACKWOOD Rep #: [id number] : 1980 Provider: SELVIN Escoto Age/Sex: 43/F [place] [facility] [place]: Signed Intake Vital Signs 01/17/24 12:07 01/31/24 17:13 Height 5 ft 4 in 5 ft 4 in Intake Visit Reasons: INCONTINENCE , Incontinence of feces Chief Complaint: diarrhea, incontinence Allergies No Known Allergies Allergy (Verified 01/31/24 17:14) Medications ???Medication ???Instructions ???Recorded ???Confirmed ???Type multivitamin (One Daily 1 tab PO DAILY 07/07/23 02/23/24 History Multivitamin tablet) venlafaxine 37.5 mg 37.5 mg PO QDAY #30 caps 01/25/24 02/23/24 Rx capsule,extended release 24 hr (Effexor XR) bupropion HCl 150 mg 24 hr tablet, 150 mg PO QAM 02/21/24 02/21/24 History extended release cholecalciferol (vitamin D3) 50 mcg PO 02/21/24 02/21/24 History mcg (2,000 unit) disintegrating tablet clonidine HCl 0.1 mg tablet 0.1 mg PO QHS 02/21/24 02/21/24 History gabapentin 100 mg capsule 100 mg PO .QOD 02/21/24 02/21/24 History colestipol 1 gram tablet 1 g PO QDAY #30 tabs 02/23/24 02/23/24 Rx Patient : No Have you fallen in the past year?: No Nurse's Note: this going for a year. no warning prior to happening. loose stools. Everything she eats at home just comes right out. has never had a colonoscopy. Thinks she may have GERD d/t daily symptoms of feeling like someone is squeezing her chest [facility] Medical History (Updated 02/23/24 @ 11:04 by Janine Barbosa) Neuropathy Lupus Irritable bowel syndrome affecting Retained cholelithiasis following cholecystectomy Elevated LDH Migraine without aura Lumbosacral radiculopathy at L4 Low iron Dysthymic disorder Abdominal pain, right upper quadrant Wears glasses Wears dentures Gastric reflux Smoker Anxiety Depression Surgical History (Updated 02/21/24 @ 10:51 by Janine Barbosa) History of bilateral ligation of fallopian tubes H/O dilation and curettage S/P cholecystectomy History of salpingectomy Family History (Updated 02/21/24 @ 10:57 by Janine Barbosa) Mother Liver cancer Alcoholism and drug addiction in family Emphysema lung Father Alcoholism and drug addiction in family Esophageal cancer Grandmother Liver cancer Diabetes Grandfather Seizures Uncle Lung cancer Other Throat cancer Social History (Updated 02/23/24 @ 11:05 by Janine Barbosa) adopted: No household members: significant other and children current occupational status: employed current occupation: [employer] current occupational exposures/hazards: No pets and animals: Yes pets and animals: guinea pig(s) sexually active: Yes Smoking Status: Former smoker alcohol intake: never substance use type: does not use caffeine: Yes Type: coffee frequency: daily seatbelt use: always do you feel safe at home: Yes additional social history: Jam Franco: stay's at home watching her 11yr HPI HPI Chief Complaint: diarrhea, incontinence Details: SPEEDY BLACKWOOD, is a 43 F who presents to the office today for establishment with [facility]. Pt has a past medical hx of neuropathy, lupus, IBS, hot flashes, menorrhagia, and scoliosis. Over the past year she has been having new onset diarrhea with leaking stool. She will be sleeping at night and get up to use the bathroom and notice some stool on her underwear. She rarely has a formed bowel movement. Her stools are loose 80-90% of the time. She also mentions some epigastric and chest pain. She has had cardiac work up for this but has been without abnormality so she feels this may be related to GERD. She takes an OTC antacid pill on occasion which is helpful. She has never had an EGD or colonoscopy.She denies abdominal pain, n/v, constipation, or melena. ROS Const Constitutional: No anorexia, fatigue, fever(s), weight change or sleep problems Eyes Eyes: No change in vision ENT ENT: No abnormal hearing, difficulty swallowing, mouth lesions, tongue swelling or throat swelling Resp Respiratory: No cough or shortness of breath Cardio Cardiology: No chest pain at rest, chest pain with exertion, shortness of breath or dyspnea on exertion Gastro GI: Positive for diarrhea and heartburn; No difficulty swallowing Genitourinary-Female: No difficulty urinating or burning urination Musc Musculoskeletal: Positive for Arthritis Skin Skin: No hair loss in leg, yellowing of the eye, itchy eyes, rash, skin ulcer or skin swelling Neuro Neurology: No abnormal hearing, abnormal movements, confusion, unsteady gait/balance or memory loss Psych Psychiatric: Positive for anxiety, No confusion, Positive for depression and No memory lo (more content not included)... Normal [facility] Basic Metabolic Profile (BMP )on 01-31-2024 BUN/CRE 12.1 RATIO Normal 10-20 [facility] Comment on above: Order Comment: 1Y Performed By: #### L 500.2500, L501.5425, L100.0100 ####[facility] [address] [place], [address] CA,Total 9.2 mg/dL Normal 8.5-10.1 [facility] Comment on above: Order Comment: 1Y Performed By: #### L 500.2500, L501.5425, L100.0100 ####[facility] [address] [place], [address] Chloride [Moles/Vol] 104 mmol/L Normal 98-107 [facility] Comment on above: Order Comment: 1Y Performed By: #### L 500.2500, L501.5425, L100.0100 ####[facility] [address] [place], [address] CO2 [Moles/Vol] 31.0 mmol/L Normal 21.0-32.0 [facility] Comment on above: Order Comment: 1Y Performed By: #### L 500.2500, L501.5425, L100.0100 ####[facility] [address] [place], [address] Creatinine [Mass/Vol] 0.74 mg/dL Normal 0.55-1.02 [facility] Comment on above: Order Comment: 1Y Result Comment: The validity of the calculated GFR GFRAA in patients over 70 years has not been determined. Clinical correlation is essential. Performed By: #### L 500.2500, L501.5425, L100.0100 ####[facility] [address] [place], [address] ECRCL 106.55 ml/min Normal [facility] Comment on above: Order Comment: 1Y Performed By: #### L 500.2500, L501.5425, L100.0100 ####[facility] [address] [place], [address] EST GFR - AA 108 mL/min Normal >60 [facility] Comment on above: Order Comment: 1Y Result Comment: Afri can Panamanian GFR Calc Performed By: #### L 500.2500, L501.5425, L100.0100 ####[facility] [address] [place], [address] GAP 6 Normal 5-15 [facility] Comment on above: Order Comment: 1Y Performed By: #### L 500.2500, L501.5425, L100.0100 ####[facility] [address] [place], [address] GFR/1.73 sq M.predicted among non-blacks MDRD (S/P/Bld) [Vol rate/Area] 90 mL/min/{1.73_m2} Normal >60 [facility] Comment on above: Order Comment: 1Y Result Comment: Non- GFR Calc Performed By: #### L 500.2500, L501.5425, L100.0100 ####[facility] [address] [place], [address] Glucose [Mass/Vol] 86 mg/dL Normal 74-[address] [facility] Comment on above: Order Comment: 1Y Performed By: #### L 500.2500, L501.5425, L100.0100 ####[facility] [address] [place], [address] Potassium [Moles/Vol] 3.6 mmol/L Normal 3.5-5.1 [facility] Comment on above: Order Comment: 1Y Performed By: #### L 500.2500, L501.5425, L100.0100 ####[facility] [address] [place], [address] Sodium [Moles/Vol] 141 mmol/L Normal 136-[address] [facility] Comment on above: Order Comment: 1Y Performed By: #### L 500.2500, L501.5425, L100.0100 ####[facility] [address] [place], [address] Urea nitrogen [Mass/Vol] 9 mg/dL Normal 7-18 [facility] Comment on above: Order Comment: 1Y Performed By: #### L 500.2500, L501.5425, L100.0100 ####[facility] [address] [place], [address] CBC W/Diff, Automatedon 01-14-2023 Absolute Lymph 2.88 X10 3/uL Normal 0.83-4.51 [facility] Comment on above: Performed By: #### L 500.2500, L501.5425, L100.0100 ####[facility] [address] [place], [address] Absolute Neut 3.2 X10 3/uL Normal 2.0-7.7 [facility] Comment on above: Performed By: #### L 500.2500, L501.5425, L100.0100 ####[facility] [address] [place], [address] Basophils/100 WBC (Bld) 0.9 % Normal 0-1 [facility] Comment on above: Performed By: #### L 500.2500, L501.5425, L100.0100 ####[facility] [address] [place], [address] Eosinophils/100 WBC (Bld) 4.8 % Normal 0-5 [facility] Comment on above: Performed By: #### L 500.2500, L501.5425, L100.0100 ####[facility] [address] [place], [address] Erythrocyte distribution width (RBC) [Ratio] 11.7 % Normal 11.6-14.6 [facility] Comment on above: Performed By: #### L 500.2500, L501.5425, L100.0100 ####[facility] [address] [place], [address] Hematocrit (Bld) [Volume fraction] 37.5 % Normal 37-47 [facility] Comment on above: Performed By: #### L 500.2500, L501.5425, L100.0100 ####[facility] [address] [place], [address] Hemoglobin (Bld) [Mass/Vol] 12.9 g/dL Normal 12.0-15.0 [facility] Comment on above: Performed By: #### L 500.2500, L501.5425, L100.0100 ####[facility] [address] [place], [address] IG% 0.900 Normal 0.0-0.9 [facility] Comment on above: Result Comment: IG% - Immature Granulocytes (promyelocytes, myelocytes and metamyelocytes) > 1% indicates that a LEFT SHIFT is Present. Performed By: #### L 500.2500, L501.5425, L100.0100 ####[facility] [address] [place], [address] Lymphocytes/100 WBC (Bld) 41.0 % Normal 19-41 [facility] Comment on above: Performed By: #### L 500.2500, L501.5425, L100.0100 ####[facility] [address] [place], [address] MCH (RBC) [Entitic mass] 31.4 pg Normal 27.0-32.0 [facility] Comment on above: Performed By: #### L 500.2500, L501.5425, L100.0100 ####[facility] [address] [place], [address] MCHC (RBC) [Mass/Vol] 34.4 g/dL Normal 32-36 [facility] Comment on above: Performed By: #### L 500.2500, L501.5425, L100.0100 ####[facility] [address] [place], [address] MCV (RBC) [Entitic vol] 91.2 fL Normal 81-99 [facility] Comment on above: Performed By: #### L 500.2500, L501.5425, L100.0100 ####[facility] [address] [place], [address] Monocytes/100 WBC (Bld) 6.6 % Normal 0-10 [facility] Comment on above: Performed By: #### L 500.2500, L501.5425, L100.0100 ####[facility] [address] [place], [address] Neutrophils/100 WBC (Bld) 45.8 % Low 47-70 [facility] Comment on above: Performed By: #### L 500.2500, L501.5425, L100.0100 ####[facility] [address] [place], [address] Nucleated RBC (Bld) [#/Vol] 0 10*3/uL Normal 0-5 [facility] Comment on above: Performed By: #### L 500.2500, L501.5425, L100.0100 ####[facility] [address] [place], [address] Platelet mean volume (Bld) [Entitic vol] 8.9 fL Normal 6.2-12.0 [facility] Comment on above: Performed By: #### L 500.2500, L501.5425, L100.0100 ####[facility] [address] [place], [address] Platelets (Bld) [#/Vol] 392 10*3/uL Normal 150-450 [facility] Comment on above: Performed By: #### L 500.2500, L501.5425, L100.0100 ####[facility] [address] [place], [address] RBC (Bld) [#/Vol] 4.11 10*6/uL Low 4.2-5.4 [facility] Comment on above: Performed By: #### L 500.2500, L501.5425, L100.0100 ####[facility] [address] [place], [address] RDW SD 38.9 fl Normal 35.1-43.9 [facility] Comment on above: Performed By: #### L 500.2500, L501.5425, L100.0100 ####[facility] [address] [place], [address] WBC (Bld) [#/Vol] 7.0 10*3/uL Normal 4.4-11.[address] [facility] Comment on above: Performed By: #### L 500.2500, L501.5425, L100.0100 ####[facility] [address] [place], [address] Tony 01-31-2024 KENNEYN Nurse Triage (FAMPWS ) BLACKWOOD,SPEEDY R ([id number]) 1980 F [place] Date Time Provider Department 01/31/24 NGUYEN KURTZ During your visit today, we recorded the following information about you: Shawn Birch RN 01/31/2024 5:05 PM Signed Patient calls for chest pain. Nurse triage recommends call EMS now. Patient will have someone take her to ER at this time. Care advice reviewed. Patient verbalizes understanding. Reason for Disposition [1] Chest pain lasts > 5 minutes AND [2] age > 44 Answer Assessment - Initial Assessment Questions 1. LOCATION: Patient reports right over her chest. 2. RADIATION: Radiates to neck and shoulder. 3. ONSET:yesterday 4. PATTERN: intermittent 5. DURATION:Depends 6. SEVERITY: - MODERATE (4-7): interferes with normal activities or awakens from sleep 7. CARDIAC RISK FACTORS: Hx of smoking and strong family history of heart disease No history of angina, prior heart attack; diabetes, high blood pressure, high cholesterol, 8. PULMONARY RISK FACTORS: Currently being treated for PE. No asthma, emphysema, control pills. 9. CAUSE: Patient currently being treated with Eliquis for PE and concerned that blood clot is moving. Family history of this. 10. OTHER SYMPTOMS: Dizziness, sweating/clammy/hands. No nausea, vomiting, sweating, fever, difficulty breathing, cough Protocols used: Chest [id number]-[id number]-XP Allergies As of Date: 01/31/2024 (No Known Allergies) Date Reviewed: 01/19/2024 Reviewed by: Pratibha Ha MA - Fully Assessed Reason for Visit: Chest Pain [21] Prescriptions as of 01/31/2024 - gabapentin (NEURONTIN) 100 mg capsule Take 1 capsule by mouth every other day for 90 days. - ELIQUIS DVT-PE TREAT 30D START 5 mg (74 tabs) - apixaban (ELIQUIS) 5 mg tab(s) Take 1 tablet by mouth two times a day. Patient should start on February 16, 2024. - albuterol HFA (PROVENTIL HFA, VENTOLIN HFA) 90 mcg/actuation inhaler Inhale 2 Puffs as instructed every 4 hours as needed for wheezing/shortness of breath. - cloNIDine HCl (CATAPRES) 0.1 mg tablet Take 0.1 mg by mouth daily at bedtime. - FLUoxetine (PROZAC) 20 mg capsule Take 1 capsule by mouth once daily. - Cholecalciferol, Vitamin D3, 2,000 unit cap Take 1 capsule by mouth daily at bedtime. - L.ACID/L.CASEI/B.BIF/B. KAVYA/FOS (PROBIOTIC BLEND ORAL) Take 1 capsule by mouth once daily. Problem List As Of Date 01/31/2024 Noted Resolved Cholelithiasis NOS [K80.20] 10/02/2007 06/28/2011 Abdominal pain, right upper quadrant [R10.11] 06/28/2011 Elev transaminase/LDH [R74.01, R74.02] 06/28/2011 Personal history of tobacco use, presenting haz*06/28/2011 [facility] HIGH RISK NEC [V23.89] [O09.899]07/26/2011 11/22/2013 Leg pain [M79.606] 08/31/2011 Tobacco abuse [Z72.0] 12/26/2013 Depression [F32.A] 12/26/2013 Discogenic pain [M54.9] 06/19/2014 DDD (degenerative disc disease), lumbar [M51.36]06/19/2014 Chronic back pain [M54.9, G89.29] 06/19/2014 Disposition Location/POS Recorded Call EMS 911 Now 05:02 PM 01/31/24 What would patient/caregiver have done without intervention? Unknown [8] Patient/Caregiver understands and will follow disposition? Yes, with modifications [53] Encounter Status:Closed by SHAWN BIRCH on 01/31/24 Normal [facility] Chest 1 View (Portable)on Chest 1 View (Portable) [facility] [address] [place] [address] Chest 1 View (Portable) MR#: [id number] Acct: [id number] Name: SPEEDY BLACKWOOD Rep #: [id number] : 1980 F 43 From: Doug Tracey MD PCP: Nguyen Kurtz, SEMI TRUCK DRIVER-C Status: REG ER Study: Chest 1 View (Portable) Date of Exam: 01/31/24 Exam# [id number] Ordering Dr: [place] [id number] STUDY: X-RAY CHEST REASON FOR EXAM: Female, 43 years old. chest pain TECHNIQUE: AP portable COMPARISON: January 17, 2024 FINDINGS: The lungs are clear and expanded. There is no demonstrated pleural abnormality. Normal size heart. Normal mediastinum and xenia. Normal visualized pulmonary arteries. Normal visualized aortic arch and descending thoracic aorta. Normal visualized thoracic spine. Normal visualized ribs, clavicles, and shoulders. There is no demonstrated abnormality of the visualized soft tissue structures of the upper abdomen. RAD/Chest 1 View (Portable) IMPRESSION: Normal x-ray examination of the chest. Electronically Signed: Doug Tracey MD at 19:06 EDT , CC: CONRAD Kurtz; Dr. Chato Arndt DO Contracting Analyst: Signed Normal [facility] Emergency Department Summary on 01-31-2024 Emergency Department Summary [facility] Medical Records Department [address] [place] [id number] Emergency Department Summary 01/31/24 MR#: [id number] Acct: [id number] Name: SPEEDY BLACKWOOD Rep #: [id number] : 1980 43 From: Chato Arndt DO PCP: CONRAD Miller Status:DEP ER Location: ED HPI History of Present Illness Chief Complaint: Chest Pain Informant: patient Onset/Context/Timing Onset: Yesterday Activity at onset: sudden and light activity Timing: Intermittent Quality: Positive for Tightness (Squeezing) Location: Substernal Worsened By: Nothing Relieved By: Nothing Associated Symptoms: Positive for Acid Reflux; Negative for Nausea, Vomiting, Diaphoresis, Dyspnea, Cough, Fever, Lightheadedness or Palpitations Narrative Narrative: Patient presents with chest pain that has been intermittent since yesterday. Patient states that it comes on suddenly. Patient states it comes on with light activity. Patient describes it as tightness and squeezing. Patient states it also made her feel clammy. Patient states it is over the substernal area. Patient states nothing makes it better and nothing makes it worse. Patient was seen here on 01/17/2024 and was diagnosed with pulmonary embolism. Patient has been taking her Eliquis as prescribed. Patient denies any fevers or chills. Patient states she quit smoking when she was diagnosed with the pulmonary embolism. CVD Risk Factors: Negative for Hypertension, Diabetes, Hypercholesterolemia, Family History 1' or Smoking PE Risk Factors: Positive for Prior DVT or PE; Negative for Recent Travel/Surgery, Recent Immobilization, Cancer or OCP + Smoking + >/=35 PFSH PFSH Medical History Wears glasses Wears dentures Gastric reflux Smoker Anxiety Depression Home Medications ???Medication ???Instructions ???Recorded ???Last Taken ???Type multivitamin (One Daily 1 tab PO DAILY 07/07/23 Unknown History Multivitamin tablet) apixaban 5 mg (74 tabs) tablets in See Rx Instructions PO .COMPLEX 01/17/24 Unknown Rx a dose pack (Eliquis DVT-PE Treat #74 tabs 30D Start) fluoxetine 20 mg capsule (Prozac) 20 mg PO .COMPLEX #30 caps 01/25/24 Unknown Rx venlafaxine 37.5 mg 37.5 mg PO QDAY #30 caps 01/25/24 Unknown Rx capsule,extended release 24 hr (Effexor XR) Allergy/AdvReac Type Severity Reaction Status Date / Time No Known Allergies Allergy Verified 01/31/24 17:14 Family History Other Liver cancer Throat cancer Surgical History H/O dilation and curettage S/P cholecystectomy History of salpingectomy Social History adopted: No household members: significant other and children current occupational status: employed current occupation: [employer] current occupational exposures/hazards: No pets and animals: Yes pets and animals: guinea pig(s) sexually active: Yes Smoking Status: Former smoker alcohol intake: never substance use type: does not use caffeine: Yes Type: coffee seatbelt use: always do you feel safe at home: Yes additional social history: Jam Franco: stay's at home watching her 11yr ROS ROS ED Constitutional Constitutional ED: Denies chills or fever(s) Eyes Eyes: Denies blurry vision or change in vision ENT ENT ED: Denies rhinorrhea or sore throat Cardiovascular Cardiovascular: Reports chest pain; Denies palpitations Respiratory/Chest Respiratory/Chest: Denies cough or dyspnea Gastrointestinal Gastrointestinal: Denies nausea or vomiting Genitourinary Genitourinary ED: Denies dysuria or hematuria Musculoskeletal Musculoskeletal: Denies back pain or neck pain Integumentary Denies abscess or rash Neurologic Neurologic: Denies headache(s) or weakness Allergic/Immunologic Allergic/Immunologic ED: Denies mouth swelling or urticaria EXAM Physical Exam Const Vital Signs: 01/31/24 17:13 01/31/24 19:03 Temperature 97.1 F L Temperature Source Temporal Pulse Rate 91 Respiratory Rate 14 Respiratory Effort Normal Non-Labored Blood Pressure 114/68 Blood Pressure Mean 83 Pulse Ox 96 Oxygen Delivery Method Room Air Positive well nourished and well developed General Appearance ED: well developed and NAD HEENT Reports moist mucous membranes Neck supple and no JVD Resp normal respiratory effort and clear to auscultation bilaterally Cardio regular rate and regular rhythm GI soft to palpation, non-tender and non-distended Extremity normal to inspection General Extremety ED: Negative for edema or tenderness General Extremity: Negative for edema Neuro oriented x3, CN's II-XII intact bilaterall (more content not included)... Normal [facility] L501.4020on 01-31-2024 TROPONIN-I HS < 3 Low 3.0-54.0 [facility] Comment on above: Result Comment: Plea se Note: New Test Units and Gender Specific Reference Ranges. For more information see Policy Stat Procedure [place] High Sensitivity Troponin (TNIH) and attachments. Performed By: #### L 501.4020 ####[facility] [address] [place], [address] L501.5425on 01-31-2024 TROPONIN-I HS 3 pg/mL Normal 3.0-54.0 [facility] Comment on above: Order Comment: 1Y Result Comment: Valentine se Note: New Test Units and Gender Specific Reference Ranges. For more information see Policy Stat Procedure [place] High Sensitivity Troponin (TNIH) and attachments. Performed By: #### L 500.2500, L501.5425, L100.0100 ####[facility] [address] [place], [address] [facility] SPEEDY BLACKWOOD ([id number]) 1980 F [place] Date Time Provider Department 01/26/24 [facility] During your visit today, we recorded the following information about you: Nguyen Kurtz APRN.CLERICAL RECEPTIONIST 01/26/2024 4:56 PM Signed Please let patient know her lupus panel was abnormal. I have placed an order for her to see rheumatology for evaluation. Nan Bradford MA 01/27/2024 9:11 AM Signed Pt prefers to stay local, referrals, OV, lab, demo, insurance cards, faxed to Dr. Toth's office. Pt notified to call and make appt. SOL Clements Beth, LPN 01/27/2024 10:41 AM Signed Patient calling back said Dr Toth does not take her insurance, assisted with transfer to jacker feeder to get appt set up for Rheumatology. Allergies As of Date: 01/26/2024 (No Known Allergies) Date Reviewed: 01/19/2024 Reviewed by: Pratibha Ha MA - Fully Assessed Reason for Visit: Results [95] Primary Visit Diagnosis:Lupus anticoagulant positive [R76.0] Order(s):CONSULT TO RHEUM/IMMUN DISEASE [9039] Order #: [id number]: 1 FUTURE Prescriptions as of 01/27/2024 - ELIQUIS DVT-PE TREAT 30D START 5 mg (74 tabs) - apixaban (ELIQUIS) 5 mg tab(s) Take 1 tablet by mouth two times a day. Patient should start on February 16, 2024. - albuterol HFA (PROVENTIL HFA, VENTOLIN HFA) 90 mcg/actuation inhaler Inhale 2 Puffs as instructed every 4 hours as needed for wheezing/shortness of breath. - gabapentin (NEURONTIN) 100 mg capsule Take 1 capsule by mouth every other day for 90 days. - cloNIDine HCl (CATAPRES) 0.1 mg tablet Take 0.1 mg by mouth daily at bedtime. - FLUoxetine (PROZAC) 20 mg capsule Take 1 capsule by mouth once daily. - Cholecalciferol, Vitamin D3, 2,000 unit cap Take 1 capsule by mouth daily at bedtime. - L.ACID/L.CASEI/B.BIF/B. KAVYA/FOS (PROBIOTIC BLEND ORAL) Take 1 capsule by mouth once daily. Problem List As Of Date 01/26/2024 Noted Resolved Cholelithiasis NOS [K80.20] 10/02/2007 06/28/2011 Abdominal pain, right upper quadrant [R10.11] 06/28/2011 Elev transaminase/LDH [R74.01, R74.02] 06/28/2011 Personal history of tobacco use, presenting haz*06/28/2011 [facility] HIGH RISK NEC [V23.89] [O09.899]07/26/2011 11/22/2013 Leg pain [M79.606] 08/31/2011 Tobacco abuse [Z72.0] 12/26/2013 Depression [F32.A] 12/26/2013 Discogenic pain [M54.9] 06/19/2014 DDD (degenerative disc disease), lumbar [M51.36]06/19/2014 Chronic back pain [M54.9, G89.29] 06/19/2014 Encounter Status:Closed by NAN BRADFORD on 01/27/24 Normal [facility] Surveillance Technician Office Visit Reporton 01-23-2024 Surveillance Technician Office Visit Report [facility] [address] [place] [address], [address] [place] [address] OFFICE VISIT Date of Service: 01/23/24 MR#: [id number] Acct: [id number] Name: SPEEDY BLACKWOOD Rep #: [id number] : 1980 Provider: CONRAD maurice Age/Sex: 43/F Location: [facility] Status: Signed Intake Vital Signs 08/08/23 10:39 01/17/24 12:07 01/23/24 09:55 01/23/24 10:05 Height 5 ft 4 in 5 ft 4 in 5 ft 4 in 5 ft 4 in Weight: 167 lb BMI 28.6 BP 118/79 Intake Visit Reasons: menopause ?s Chief Complaint: Menopause Wholesale Account Executive Required: No Is patient in pain?: No Allergies No Known Allergies Allergy (Verified 01/23/24 09:55) Medications ???Medication ???Instructions ???Recorded ???Confirmed ???Type fluoxetine 40 mg capsule (Prozac) 40 mg PO QPM 09/16/22 01/23/24 History multivitamin (One Daily 1 tab PO DAILY 07/07/23 01/23/24 History Multivitamin tablet) apixaban 5 mg (74 tabs) tablets in See Rx Instructions PO .COMPLEX 01/17/24 01/23/24 Rx a dose pack (Eliquis DVT-PE Treat #74 tabs 30D Start) Is last menstrual period known: No Post menopausal: Yes Patient : No : No PFSH Medical History Wears glasses Wears dentures Gastric reflux Smoker Anxiety Depression Surgical History H/O dilation and curettage S/P cholecystectomy History of salpingectomy Family History Other Liver cancer Throat cancer Social History adopted: No household members: significant other and children current occupational status: employed current occupation: [employer] current occupational exposures/hazards: No pets and animals: Yes pets and animals: guinea pig(s) sexually active: Yes Smoking Status: Current every day smoker tobacco type: cigarettes alcohol intake: never substance use type: does not use caffeine: Yes Type: coffee seatbelt use: always do you feel safe at home: Yes additional social history: Jam Franco: stay's at home watching her 11yr HPI menopause ?s Details: SPEEDY BLACKWOOD is a 43 year old who presents for wanting to start hormone replacement for hot flashes. She states that she was told if she stopped smoking she could have HRT. She stopped 6 days ago after being in ED for pulmonary embolism. She is now on eliquis. She has failed clonidine, black cohash and gabapentin for hot flash management. History 3 Elective abortions Hx Para 3 Spontaneous abortions Hx # Term Pregnancies Ectopic pregnancies Hx # Pregnancies Multiple births # of living children 3 Past Pregnancies Del. Date Name GA/Weeks Outcome Route Bth Weight Infant Gen Labor Lgth Anesthesia Del Locatn Provider FOB 10/31/96 Ruben Moneta 04/17/00 Moon Moneta 01/07/12 Coty [facility] JV ROS Const Constitutional: Reports system reviewed and no additional complaints, except as documented Eyes Eyes: Reports system reviewed and no additional complaints, except as documented GI GI: Denies abdominal pain or change in bowel habits : Reports as per HPI Exam Const General: cooperative and no acute distress Orientation: oriented x3 HENMT Head: normal to inspection and normocephalic Eyes General: appearance normal, both eyes and all related structures Neck Neck: normal visual inspection Resp Effort Inspection: normal respiratory effort Neuro Cognition: normal cognition Speech: speech normal Psych Appearance: grossly normal Mood: congruent mood Affect: normal affect Speech and Movement: speech and movement normal Attitude: cooperative Judgment: judgment good Coding Level of Care Code Off vis,est,level 2 Diagnoses Hot flashes R23.2 Acute pulmonary embolism, unspecified pulmonary embolism type, unspecified whether acute cor pulmonale present I26.99 Pulmonary embolism type: unspecified Chronicity: acute Acute cor pulmonale presence: unspecified Assessment and Plan Assessment and Plan (1) Hot flashes: Status: Acute Comment: NO estrogen. Failed gabapentin, clonidine and black cohash. (2) Pulmonary emboli: Status: Acute Qualifiers: Pulmonary embolism type: unspecified Chronicity: acute Acute cor pulmonale presence: unspecified Qualified Code(s): I26.99 - Other pulmonary embolism without acute cor pulmonale Medications: Discontinued gabapentin Discontinued Reason: Pt no longer taking 100 mg PO QHS black cohosh Discontinued Reason: Order Completed 200 mg PO DAILY bupropion HCl XL Discontinued Reason: Pt no longer taking 150 mg PO DAILY Plan Discussed due (more content not included)... Normal [facility] CARDIOLIPIN IGG ABSon 2023 Cardiolipin IgG IA Qn (S) <9.0 Normal <15.0 [facility] Comment on above: Order Comment: Rosendo zuleta Type: BLOOD SPECIMENOrdering Facility: [facility] Address: [address] [place] [address] Result Comment: <15 GPL Negative 15-20 GPL Indeterminate >20 GPL Positive The following results were obtained with the Inova QUANTA Lite KALYAN IgG III HANNAH. Cardiolipin IgG values obtained with the different manufacturers' assay methods may not be used interchangeably. The magnitude of the reported IgG levels cannot be correlated to an endpoint titer. Performed By: #### 5 [id number] CARDIM ####[facility] LABCLIA [id number] [address] OF [facility] CARDIOLIPIN IGM ABSon 2023 Cardiolipin IgM IA Qn (S) 19.0 MPL High <12.5 [facility] Comment on above: Order Comment: Rosendo zuleta Type: BLOOD SPECIMENOrdering Facility: [facility] Address: [address] [place] [address] Result Comment: <12. 5 MPL Negative 12.5-20 MPL Indeterminate >20 MPL Positive The following results were obtained with the Inova QUANTA Lite KALYAN IgM III HANNAH. Cardiolipin IgM values obtained with the different manufacturers' assay methods may not be used interchangeably. The magnitude of the reported IgM levels cannot be correlated to an endpoint titer. ??? Performed By: #### 5 076-5KANU CARDIM ####[facility] LABAPRIL [id number] [place] [address] [place] CNOVon 01-19-2024 CNOV Office Visit (NANCYWS ) SPEEDY BLACKWOOD ([id number]) 1980 F UPA Date Time Provider Department 01/19/24 9:00 AM NGUYEN KURTZ During your visit today, we recorded the following information about you: Pulse Respiration Blood pressure Weight 94/minute 14/minute 104/67 75.3 kg Nguyen Kurtz APRN.CLERICAL RECEPTIONIST 01/19/2024 9:01 AM Signed Chief Complaint Patient presents with: Diarrhea: X 1 week ER F/U: Pulmonary embolism HPI Speedy Blackwood is a 43 year old female who presents here today for Above Complaints.. Patient presents for ER follow up. Patient was diagnosed with PE and started on Eliquis. Patient reports she quit smoking when she was diagnosed with PE. Also reports over the past few months she has had a burning sensation in her right leg that comes and goes. Past medical history, appointments, medications, allergies reviewed. Previous Medical History PAST MEDICAL HISTORY No date: Abdominal pain, right upper quadrant No date: Dysthymic disorder Comment: Depression (non-psychotic) No date: Low iron 02/2014: Lumbosacral radiculopathy at L4 No date: Migraine without aura No date: Nonspecific elevation of levels of transaminase or lactic acid dehydrogenase (LDH) No date: Scoliosis Previous Surgical History PAST SURGICAL HISTORY 12/15/2007: LAPS SURG CHOLECYSTECTOMY W/CHOLANGIOGRAPHY Comment: ? abnormal CBD No date: LIGATE FALLOPIAN TUBE; Bilateral Comment: 2015 No date: PAST SURGICAL HISTORY OF Comment: dental extraction Family History FAMILY HISTORY Problem Relation Age of Onset Alcohol/Drug Mother Alcohol/Drug Father Cancer Mother LIVER CANCER Cancer Father ESOPHAGEAL CANCER Cancer Maternal Grandmother LIVER CANCER Cancer Paternal Uncle LUNG CANCER Diabetes Paternal Grandmother Emphysema Mother Seizures Maternal Grandfather Patient Allergies ALLERGIES No Known Allergies Current Medications Current Outpatient Medications on File Prior to Visit Medication Sig ELIQUIS DVT-PE TREAT 30D START 5 mg (74 tabs) gabapentin (NEURONTIN) 100 mg capsule Take 1 capsule by mouth every other day for 90 days. buPROPion XL (WELLBUTRIN XL) 150 mg 24 hr tablet Take 1 tablet by mouth once daily. cloNIDine HCl (CATAPRES) 0.1 mg tablet Take 0.1 mg by mouth daily at bedtime. FLUoxetine (PROZAC) 20 mg capsule Take 1 capsule by mouth once daily. Cholecalciferol, Vitamin D3, 2,000 unit cap Take 1 capsule by mouth daily at bedtime. L.ACID/L.CASEI/B.BIF/B. KAVYA/FOS (PROBIOTIC BLEND ORAL) Take 1 capsule by mouth once daily. No current facility-administered medications on file prior to visit. Social History Social History Tobacco Use Smoking status: Every Day Current packs/day: 0.50 Average packs/day: 0.5 packs/day for 20.0 years (10.0 ttl pk-yrs) Types: Cigarettes Smokeless tobacco: Never Vaping Use Vaping status: current everyday user Substances: Nicotine, Flavoring Devices: Disposable Substance Use Topics Alcohol use: Yes Comment: rare Drug use: Not Currently Types: Marijuana Review of Symptoms REVIEW OF SYSTEMS SEE HPI EXAM: BP 104/67 Pulse 94 Resp 14 Wt 75.3 kg (166 lb) LMP 08/15/2018 SpO2 95% BMI 28.49 kg/m? General Appearance: Well appearing, alert, in no acute distress, well-hydrated, well nourished.. Lungs: Lungs clear to auscultation. No wheezing, rhonchi, rales.. Heart: RRR without murmur, gallop, or rubs. No ectopy. Abdomen: Normal abdominal exam, Abdomen soft, non-tender. Bowel sounds normal. No masses, organomegaly. Health Maintenance List Pneumococcal Vaccine(1 of 2 - PCV) Never done Anxiety Screening Never done Hepatitis C Screening Never done Colorectal Cancer Screening Never done Mammogram Screening due on 09/15/2023 Covid-19 Vaccine(2022- season) due on 01/15/2024 Influenza Vaccine(1) due on 01/15/2024 Diabetes Screening due on 09/13/2025 Cervical Cancer Screening due on 05/16/2027 Lipid Screening due on 09/14/2027 DTaP,Tdap,Td Vaccine(2 - Td or Tdap) due on 02/19/2032 HIV Screening Completed HPV Vaccine Aged Out Hepatitis B Vaccine Discontinued ASSESSMENT/PLAN: 1. Incontinence of feces, unspecified fecal incontinence type - ICD9: 787.60, ICD10: R15.9 - CONSULT TO GASTROENTEROLOGY 2. Acute pulmonary embolism, unspecified pulmonary embolism type, unspecified whether acute cor pulmonale present (HCC) - ICD9: 415.19, ICD10: I26.99 - APIXABAN 5 MG TABLET - HYPERCOAG DIAG PNL - US LEG VEIN DVT UNL VAS LAB - ALBUTEROL SULFATE HFA 90 MCG/ACTUATION AEROSOL INHALER - INHALATIONAL SPACING DEVICE Nguyen Kurtz APRN.CLERICAL RECEPTIONIST Allergies As of Date: 01/19/2024 (No Known Allergies) Date Reviewed: 01/19/2024 Reviewed by: Pratibha Ha MA - Fully Assessed Reason for Visit: Diarrhea [35] Cmt: X 1 week ER F/U [41] Cmt: Pulmonary embolism Primary Visit Diagnosis:Incontinen (more content not included)... Normal [facility] COAG CORE PANEL BLDon 2023 aPTT Coag (PPP) [Time] 37.0 s High 23.0-32.4 [facility] Comment on above: Order Comment: Speci men Type: BLOOD SPECIMEN [facility] Address: [address] [place] [address] Performed By: #### P TGEN #### [facility] CLIA [id number] [address] [place] [address] [place] Fibrinogen Coag (PPP) [Mass/Vol] 722 mg/dL High 200-400 [facility] Comment on above: Order Comment: Speci men Type: BLOOD SPECIMEN [facility] Address: [address] [place] [address] Result Comment: Mahi chong checked for clot. Result rechecked. Frozen Plasma Aliquot Performed By: #### P TGEN #### [facility] CLIA [id number] [place] INR Coag (PPP) [Relative time] 1.1 {INR} Normal 0.9-1.3 [facility] Comment on above: Order Comment: Rosendo zuleta Type: BLOOD SPECIMEN [facility] Address: [address] [place] [address] Result Comment: Naomi min K Antagonist (VKA) Therapeutic Range: INR 2 to 3 (Target INR of 2.5) Note: For patients treated with VKA drugs, such as warfarin, the [place] [employer] 2012 Guideline recommends a therapeutic INR range of 2 to 3 (target INR of 2.5). This recommendation includes high-risk patients with antiphospholipid syndrome with previous arterial or venous thromboembolism, current-generation mechanical or bioprosthetic aortic heart valve replacement. Note: Patients with mechanical aortic valve replacement and additional risk factors for thromboembolic events (atrial fibrillation, previous thromboembolism, LV dysfunction, hypercoagulable conditions) or an older generation mechanical AVR (i.e., ball in-Cage) or any mechanical MVR should have a INR therapeutic range of 2.5 to 3.5 (target INR of 3). Winifred GH, et al. Chest 2012, 141:7S-47S Chin RA, et al. JACC 2017, 70: 252-289 Performed By: #### P TGEN #### [facility] CLIA [id number] [address] [place] [address] [place] PT Coag (PPP) [Time] 11.3 s Normal 9.7-13.0 [facility] Comment on above: Order Comment: Rosendo zuleta Type: BLOOD SPECIMEN [facility] Address: [address] [place] [address] Performed By: #### P TGEN #### [facility] ILLUMINA LIM[facility] CLIA [id number] [address] [place] [address] [place] CRP SerPl-mCncon 01-19-2024 CRP [Mass/Vol] 7.6 mg/dL High <0.9 [facility] Comment on above: Order Comment: Rosendo zuleta Type: BLOOD SPECIMENOrdering Facility: [facility] Address: [facility] [place] [address] Performed By: #### 1 988-5 ####[facility] LABIA [id number] [address] [place] Cardiolipin IgA Ser IA-aCnco n 01-19-2024 Cardiolipin IgA IA Qn (S) <9.0 Normal <12.0 [facility] Comment on above: Order Comment: Speci men Type: BLOOD SPECIMENOrdering Facility: [facility] Address: [address] [place] [address] Result Comment: <12 APL Negative 12-20 APL Indeterminate >20 APL Positive The following results were obtained with the [employer] LabsA Lite KALYAN IgA III HANNAH. Cardiolipin IgA values obtained with the different manufacturers' assay methods may not be used interchangeably. The magnitude of the reported IgA levels cannot be correlated to an endpoint titer. Performed By: #### 5 076-5, BLAYNE BOBBY ####[facility] [id number] [address] OF [facility] HYPERCOAG PANELon 01-19-2024 ANTI XA HZ + DOAC 0.46 High <0.10 [facility] Comment on above: Order Comment: Speci men Type: BLOOD SPECIMENOrdering Facility: [facility] Address: [address] [place] [address] Performed By: #### H COAG ####[facility] LABIA [id number] [place] [address] [place] Antithrombin actual/normal Chromogenic method (PPP) [Rel catalytic activity/Vol] 127 % Normal 84-138 [facility] Comment on above: Order Comment: Speci men Type: BLOOD SPECIMENOrdering Facility: [facility] Address: [address] [place] [address] Performed By: #### H COAG ####[facility] LABIA [id number] [address] [id number] [address] [place] aPTT Coag (Bld) [Time] 45.7 s High 24.0-35.1 [facility] Comment on above: Order Comment: Speci men Type: BLOOD SPECIMENOrdering Facility: [facility] Address: [address] [place] [address] Performed By: #### H COAG ####[facility] LABCLIA [id number] [place] [address] [place] APTT SCRN HZ + DOAC 35.1 Normal 24.0-35.1 [facility] Comment on above: Order Comment: Speci men Type: BLOOD SPECIMENOrdering Facility: [facility] Address: [address] [place] [address] Performed By: #### H COAG ####[facility] LABCLIA [id number] [place] [address] [place] Coagulation factor X activated act Coag Qn (PPP) >2.80 High <0.10 [facility] Comment on above: Order Comment: Speci men Type: BLOOD SPECIMENOrdering Facility: [facility] Address: [address] [place] [address] Result Comment: This test was developed and its performance characteristics determined by [facility]'s Rakesh Yanique [facility] [place] (-[facility]). It has not been cleared or approved by the FDA. [facility] is regulated under CLIA as qualified to perform high-complexity testing. This test is used for clinical purposes. It should not be regarded as investigational or for research. Performed By: #### H COAG ####[facility] LABIA [id number] [place] [address] [place] Protein C actual/normal Coag (PPP) [Relative time] 137 % Normal 76-147 [facility] Comment on above: Order Comment: Speci men Type: BLOOD SPECIMENOrdering Facility: [facility] Address: [address] [place] [address] Performed By: #### H COAG ####[facility] LABCLIA [id number] [place] [address] [place] Protein S actual/normal Chromogenic method (PPP) [Rel catalytic activity/Vol] 127 % Normal 74-156 [facility] Comment on above: Order Comment: Speci men Type: BLOOD SPECIMENOrdering Facility: [facility] Address: [address] [place] [address] Performed By: #### H COAG ####[facility] LABIA [id number] [place] [address] [place] Protein S Free Ag actual/normal IA (PPP) [Relative mass conc] 108 % Normal 55-148 [facility] Comment on above: Order Comment: Speci men Type: BLOOD SPECIMENOrdering Facility: [facility] Address: [address] [place] [address] Performed By: #### H COAG ####[facility] LABIA [id number] [address] [place] Thrombin time Coag (PPP) [Time] <16.8 Normal <18.6 [facility] Comment on above: Order Comment: Speci men Type: BLOOD SPECIMENOrdering Facility: [facility] Address: [address] [place] [address] Performed By: #### H COAG ####[facility] LABIA [id number] [place] [address] [place] THROMBIN TIME HZ + DOAC 17.3 Normal <18.6 [facility] Comment on above: Order Comment: Speci men Type: BLOOD SPECIMENOrdering Facility: [facility] Address: [address] [place] [address] Performed By: #### H COAG ####[facility] LABIA [id number] [place] [address] [place] PROTHROMBIN GENE PCRon 01-18 PROTHROMBIN GENE MUTATION Normal [facility] Comment on above: Order Comment: Speci men Type: BLOOD SPECIMEN [facility] Address: [address] [place], [place] [id number] Result Comment: Prot hrombin Gene Mutation Laboratory Accession Number: [id number] Result: HETEROZYGOUS Interpretation: 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 Heterozygosity for the c.97G>A variant is associated with approximately a 3-fold increased risk of venous thrombosis, possibly related to an elevation in prothrombin levels. These results should be interpreted in light of other congenital and acquired risk factors, including , as the risk of thrombosis increases with the presence of two or more concomitant risk factors. Thromboembolic disease is a multifactorial disorder and other causes are not excluded by this result. Genetic consultation and counseling of at risk family members regarding this laboratory testing may be considered as clinically appropriate. Methodology: Isolated Genomic DNA from the patient's blood specimen is evaluated for the c*97G>A ([id number]) variant of the F2 gene [RefSeq [id number];GRCh38/hg38] by multiplex polymerase chain reaction (PCR) followed by melting curve analysis. Limitations: This assay is designed to detect the c.*97G>A (94221U>A) variant in the F2 gene. Uncommon variants or single nucleotide polymorphisms may affect binding of probes and may rarely result in false negative, false positive or indeterminate results. This assay does not detect other disease-associated rare variants in F2 or other causes of thromboembolic disease. Disclaimer: This test was developed and its performance characteristics determined by [facility] [place] ([facility]). It has not been cleared or approved by the FDA. -[facility] is regulated under CLIA as certified to perform high- complexity testing. This test is used for clinical purposes. It should not be regarded as investigational or for research. Testing and interpretation performed at [facility], [address] [place], [place] [address]. CLIA Number: [id number] References: 1) Inheritied Thrombophilias in . ACOG Practice Bulletin. No. 197. [place] [employer]. Obsete Gynecol 2018;132:e18-34. 2) Josselyn PATHAK, Elizabeth FR, Cierra PH, and Ashley RM. A common genetic variation in the 3'-untranslated region of the prothrombin gene is associated with elevated plasma prothrombin levels and an increase in venous thrombosis. Blood 88:3698-703, 1995. 3) Jeramy Thomas, Mayra Aguilar, Reed Watts, Nigel Padron. Prothrombin 31907Q>T: 16 new cases, association with the 93580Y>G polymorphism, and literature review. J Thromb Haemost. 2009;9:1585-7. As reviewed by Stacy Jacobo MD Performed By: #### P TGEN #### [facility] CLIA [id number] [address] [place] [address] [place] Venous Duplex US, Unilateral on 01-19-2024 Venous Duplex US, Unilateral [facility] [address] [place] [address] Venous Duplex US, Unilateral 01/19/24 1319 MR#: [id number] Acct: [id number] Name: SPEEDY BLACKWOOD Rep #: [id number] : 1980 43 From: Chato Wong MD Attending Dr: Nguyen Kurtz NP-C Status: REG CLI Ordering Dr: Nguyen Kurtz SEMI TRUCK DRIVERMagdalenaC Date: 01/19/24 Location: CVS Sex: F C Admitted: Reason For Study: Pulmonary embolism RIGHT LEFT GSV is normal. CFV is compressible, spontaneous, phasic, CFV is compressible, spontaneous, phasic, competent, and demonstrates normal competent and demonstrates normal augmentation. augmentation. FV is compressible, spontaneous, phasic, competent and demonstrates normal augmentation. POP V is compressible, spontaneous, phasic, competent and demonstrates normal augmentation. T/P Trunk is compressible. PTV is compressible. RT PerV is compressible. Procedure This is a venous duplex using B-mode, color flow and spectral Doppler. Exam performed in department. A preliminary report was called and/or faxed to Nguyen Kurtz SEMI TRUCK DRIVER-C. VL/Venous Duplex US, Unilateral Interpretation Summary Deep veins of the right lower extremity are patent and compressible segmentally. There is no evidence of right lower extremity deep vein thrombosis. The right great saphenous vein appears patent and compressible segmentally. Ordering Physician: Nguyen Kurtz Referring Physician: Nguyen Kurtz Performed By: Heydi Sharma, RVT 01/20/24 1108 Date Chato Wong MD CC: SEMI TRUCK DRIVER-C Nguyen Kurtz Date Dictated: 01/19/24 1319 Date Transcribed: 01/20/24 1108 Contracting Analyst: Signed Normal [facility] 12 Lead EKGon 01-17-2024 12 Lead EKG [facility] [address] [place] [address] 12 Lead EKG 01/17/24 1214 MR#: [id number] Acct: [id number] Name: SPEEDY BLACKWOOD Rep #: [id number] : 1980 43 From: Joes Reinoso MD Attending Dr: Status: DEP ER Ordering Dr: Francisco Javier Mon MD Date: 01/17/24 Location: ED Sex: F C Admitted: Test Reason : CP Blood Pressure : / mmHG Vent. Rate : 094 BPM Atrial Rate : 094 BPM P-R Int : 124 ms QRS Dur : 092 ms QT Int : 380 ms P-R-T Axes : 046 006 019 degrees QTc Int : 475 ms Normal sinus rhythm Septal infarct , age undetermined Abnormal ECG Confirmed by JOSE REINOSO MD ([id number]), social media editor DIANNE MICHAEL ([id number]) on 01/19/2024 1:43:05 PM Referred By: Confirmed By:JOSE REINOSO MD 01/19/24 1343 Date Jose Reinoso MD CC: SEMI TRUCK DRIVER-C Nguyen Kurtz; Dr. Francisco Javier Mon MD Signed Normal [facility] Basic Metabolic Profile (BMP )on 01-17-2024 BUN/CRE 12.0 RATIO Normal 10-20 [facility] Comment on above: Order Comment: 1 Y Performed By: #### L 500.2500, L100.0100, L501.5425 #### [facility] [address] [place], [address] CA,Total 9.4 mg/dL Normal 8.5-10.1 [facility] Comment on above: Order Comment: 1 Y Performed By: #### L 500.2500, L100.0100, L501.5425 #### [facility] [address] [place], [address] Chloride [Moles/Vol] 104 mmol/L Normal 98-107 [facility] Comment on above: Order Comment: 1 Y Performed By: #### L 500.2500, L100.0100, L501.5425 #### [facility] [address] [place], [address] CO2 [Moles/Vol] 29.0 mmol/L Normal 21.0-32.0 [facility] Comment on above: Order Comment: 1 Y Performed By: #### L 500.2500, L100.0100, L501.5425 #### [facility] [address] [place], [place], [address] Creatinine [Mass/Vol] 0.67 mg/dL Normal 0.55-1.02 [facility] Comment on above: Order Comment: 1 Y Result Comment: The validity of the calculated GFR GFRAA in patients over 70 years has not been determined. Clinical correlation is essential. Performed By: #### L 500.2500, L100.0100, L501.5425 #### [facility] [address] [place], [address] ECRCL 104.75 ml/min Normal [facility] Comment on above: Order Comment: 1 Y Performed By: #### L 500.2500, L100.0100, L501.5425 #### [facility] [address] [place], [address] EST GFR - AA 123 mL/min Normal >60 [facility] Comment on above: Order Comment: 1 Y Result Comment: Afri can Panamanian GFR Calc Performed By: #### L 500.2500, L100.0100, L501.5425 #### [facility] [address] [place], [address] GAP 4 Low 5-15 [facility] Comment on above: Order Comment: 1 Y Performed By: #### L 500.2500, L100.0100, L501.5425 #### [facility] [address] [place], [address] GFR/1.73 sq M.predicted among non-blacks MDRD (S/P/Bld) [Vol rate/Area] 101 mL/min/{1.73_m2} Normal >60 [facility] Comment on above: Order Comment: 1 Y Result Comment: Non- GFR Calc Performed By: #### L 500.2500, L100.0100, L501.5425 #### [facility] [address] [place], [address] Glucose [Mass/Vol] 106 mg/dL Normal 74-[address] [facility] Comment on above: Order Comment: 1 Y Result Comment: Fast ing Glucose result from 100 to 125 mg/dL suggests IMPAIRED HOMEOSTASIS per A.D.A. criteria. Performed By: #### L 500.2500, L100.0100, L501.5425 #### [facility] [address] [place], [address] Potassium [Moles/Vol] 4.0 mmol/L Normal 3.5-5.1 [facility] Comment on above: Order Comment: 1 Y Performed By: #### L 500.2500, L100.0100, L501.5425 #### [facility] [address] [place], [address] Sodium [Moles/Vol] 137 mmol/L Normal 136-[address] [facility] Comment on above: Order Comment: 1 Y Performed By: #### L 500.2500, L100.0100, L501.5425 #### [facility] [address] [place], [address] Urea nitrogen [Mass/Vol] 8 mg/dL Normal 7-18 [facility] Comment on above: Order Comment: 1 Y Performed By: #### L 500.2500, L100.0100, L501.5425 #### [facility] [address] [place], [address] CBC W/Diff, Automatedon 09-0 3-2024 Absolute Lymph 3.15 X10 3/uL Normal 0.83-4.51 [facility] Comment on above: Performed By: #### L 500.2500, L100.0100, L501.5425 #### [facility] [address] [place], [address] Absolute Neut 7.8 X10 3/uL High 2.0-7.7 [facility] Comment on above: Performed By: #### L 500.2500, L100.0100, L501.5425 #### [facility] [address] [place], [address] Basophils/100 WBC (Bld) 0.8 % Normal 0-1 [facility] Comment on above: Performed By: #### L 500.2500, L100.0100, L501.5425 #### [facility] [address] [place], [address] Eosinophils/100 WBC (Bld) 3.8 % Normal 0-5 [facility] Comment on above: Performed By: #### L 500.2500, L100.0100, L501.5425 #### [facility] [address] [place], [address] Erythrocyte distribution width (RBC) [Ratio] 11.9 % Normal 11.6-14.6 [facility] Comment on above: Performed By: #### L 500.2500, L100.0100, L501.5425 #### [facility] [address] [place], [address] Hematocrit (Bld) [Volume fraction] 40.7 % Normal 37-47 [facility] Comment on above: Performed By: #### L 500.2500, L100.0100, L501.5425 #### [facility] [address] [place], [address] Hemoglobin (Bld) [Mass/Vol] 14.1 g/dL Normal 12.0-15.0 [facility] Comment on above: Performed By: #### L 500.2500, L100.0100, L501.5425 #### [facility] [address] [place], [address] IG% 0.900 Normal 0.0-0.9 [facility] Comment on above: Result Comment: IG% - Immature Granulocytes (promyelocytes, myelocytes and metamyelocytes) > 1% indicates that a LEFT SHIFT is Present. Performed By: #### L 500.2500, L100.0100, L501.5425 #### [facility] [address] [place], [address] Lymphocytes/100 WBC (Bld) 24.4 % Normal 19-41 [facility] Comment on above: Performed By: #### L 500.2500, L100.0100, L501.5425 #### [facility] [address] [place], [address] MCH (RBC) [Entitic mass] 31.6 pg Normal 27.0-32.0 [facility] Comment on above: Performed By: #### L 500.2500, L100.0100, L501.5425 #### [facility] [address] [place], [address] MCHC (RBC) [Mass/Vol] 34.6 g/dL Normal 32-36 [facility] Comment on above: Performed By: #### L 500.2500, L100.0100, L501.5425 #### [facility] [address] [place], [address] MCV (RBC) [Entitic vol] 91.3 fL Normal 81-99 [facility] Comment on above: Performed By: #### L 500.2500, L100.0100, L501.5425 #### [facility] [address] [place], [address] Monocytes/100 WBC (Bld) 9.8 % Normal 0-10 [facility] Comment on above: Performed By: #### L 500.2500, L100.0100, L501.5425 #### [facility] [address] [place], [address] Neutrophils/100 WBC (Bld) 60.3 % Normal 47-70 [facility] Comment on above: Performed By: #### L 500.2500, L100.0100, L501.5425 #### [facility] [address] [place], [address] Nucleated RBC (Bld) [#/Vol] 0 10*3/uL Normal 0-5 [facility] Comment on above: Performed By: #### L 500.2500, L100.0100, L501.5425 #### [facility] [address] [place], [address] Platelet mean volume (Bld) [Entitic vol] 9.2 fL Normal 6.2-12.0 [facility] Comment on above: Performed By: #### L 500.2500, L100.0100, L501.5425 #### [facility] [address] [place], [address] Platelets (Bld) [#/Vol] 289 10*3/uL Normal 150-450 [facility] Comment on above: Performed By: #### L 500.2500, L100.0100, L501.5425 #### [facility] [address] [place], [address] RBC (Bld) [#/Vol] 4.46 10*6/uL Normal 4.2-5.4 [facility] Comment on above: Performed By: #### L 500.2500, L100.0100, L501.5425 #### [facility] [address] [place], [address] RDW SD 39.7 fl Normal 35.1-43.9 [facility] Comment on above: Performed By: #### L 500.2500, L100.0100, L501.5425 #### [facility] [address] [place], [address] WBC (Bld) [#/Vol] 12.9 10*3/uL High 4.4-11.0 [facility] Comment on above: Performed By: #### L 500.2500, L100.0100, L501.5425 #### [facility] [address] [place], [address] CTA Chest W/WO Contraston CTA Chest W/WO Contrast [facility] [address] [place] [address] CTA Chest W/WO Contrast MR#: [id number] Acct: [id number] Name: SPEEDY BLACKWOOD Rep #: [id number] : 1980 F 43 From: Doug Tracey MD PCP: Nguyen Kurtz NP-C Status: REG ER Study: CTA Chest W/WO Contrast Date of Exam: 01/17/24 Exam# [id number] Ordering Dr: Francisco Javier Mon MD ADDENDUM by Dr. Doug Tracey MD on 01/17/24 at 1830 [id number] STUDY: CTA CHEST REASON FOR EXAM: Female, 43 years old. elevated D dimer RADIATION DOSAGE (If Supplied By Facility): CTDIvol = ( 9.21 ) mGy, DLP = ( 406.36 ) mGycm TECHNIQUE: The examination was performed with the intravenous administration of IV 100mL Isovue-370. Post-processing of the angiographic images was performed, with multiplanar reformation and 3D reconstruction. Individualized dose optimization techniques were used for this CT. COMPARISON: None. FINDINGS: Normal enhancement of the main pulmonary artery and right and left pulmonary arteries.. There are small intraluminal filling defects within the subsegmental vessels of the right lower lobe, right upper lobe,, left lower lobe and lingula. . There is no saddle embolus or evidence for right ventricular strain Normal thoracic aorta and visualized great vessels. There is no demonstrated aortic dissection. Normal heart and pericardium. Normal mediastinum. Normal hilar regions. Normal visualized trachea and bronchi. The lungs are well expanded. There is atelectasis within the dependent portion of both lower lobes There is a tiny left pleural effusion and mild compressive atelectasis in left lower lobe Normal chest wall structures. Normal osseous structures. Liver is enlarged and fatty infiltrated. Gallbladder not visualized consistent with cholecystectomy. 01/17/24 1830 Date cc: [employer]I [employer]IVER-C Nguyen Kurtz; Dr. Francisco Javier Mon MD * Signed ADDENDUM by Dr. Doug Tracey MD on 01/17/[address]/CTA Chest W/WO Contrast IMPRESSION: Multiple subsegmental pulmonary emboli bilaterally.. No evidence for saddle embolus or definitive evidence for right ventricular strain Tiny left pleural effusion and compressive atelectasis left lower lobe possibly due to small pulmonary N.B. : The above Results were Read Back by Doug Tracey MD to Francisco Javier Mon MD, and understanding confirmed on 01/17/2024 18:45:27 (ET). Electronically Signed: Doug Tracey MD at 18:30 EDT , 01/17/24 1852 Date cc: CONRAD Kurtz; Dr. Francisco Javier Mon MD * Signed We are attempting to reach an attending provider to discuss findings. An addendum with communication details will be sent when the communication is complete. [id number] STUDY: CTA CHEST REASON FOR EXAM: Female, 43 years old. elevated D dimer RADIATION DOSAGE (If Supplied By Facility): CTDIvol = ( 9.21 ) mGy, DLP = ( 406.36 ) mGycm TECHNIQUE: The examination was performed with the intravenous administration of IV 100mL Isovue-370. Post-processing of the angiographic images was performed, with multiplanar reformation and 3D reconstruction. Individualized dose optimization techniques were used for this CT. COMPARISON: None. FINDINGS: Normal enhancement of the main pulmonary artery and right and left pulmonary arteries.. There are small intraluminal filling defects within the subsegmental vessels of the right lower lobe, right upper lobe,, left lower lobe and lingula. . There is no saddle embolus or evidence for right ventricular strain Normal thoracic aorta and visualized great vessels. There is no demonstrated aortic dissection. Normal heart and pericardium. Normal mediastinum. Normal hilar regions. Normal visualized trachea and bronchi. The lungs are well expanded. There is atelectasis within the dependent portion of both lower lobes There is a tiny left pleural effusion and mild compressive atelectasis in left lower lobe Normal chest wall structures. Normal osseous structures. Liver is enlarged and fatty infiltrated. Gallbladder not visualized consistent with cholecystectomy. CT/CTA Chest W/WO Contrast IMPRESSION: Multiple subsegmental pulmonary emboli bilaterally.. No evidence for saddle embolus or definitive evidence for right ventricular strain Tiny left pleural effusion and compressive atelectasis left lower lobe possibly due to small pulmonary Electronically Signed: Doug Post (more content not included)... Normal [facility] Chest 1 View (Portable)on Chest 1 View (Portable) [facility] [address] [place] [address] Chest 1 View (Portable) MR#: [id number] Acct: [id number] Name: SPEEDY BLACKWOOD Rep #: [id number] : 1980 F 43 From: Arjun Zaman MD PCP: CONRAD Miller Status: REG ER Study: Chest 1 View (Portable) Date of Exam: 01/17/24 Exam# [id number] Ordering Dr: [place] [id number] STUDY: X-RAY CHEST REASON FOR EXAM: Female, 43 years old. Chest pain. TECHNIQUE: Single frontal view of the chest. COMPARISON: January 13, 2020 FINDINGS: Low volume inspiration with bibasilar atelectasis. There is no demonstrated pleural abnormality. Normal size heart. Normal mediastinum and xenia. Normal visualized pulmonary arteries. Normal visualized aortic arch and descending thoracic aorta. No abnormality of the visualized soft tissue structures of the upper abdomen. RAD/Chest 1 View (Portable) IMPRESSION: Low volume inspiration with atelectasis. No acute finding. Electronically Signed: Arjun Zaman MD at 13:21 EDT Reading Location ID and State: [address] [place] [address] , Service support , CC: CONRAD Kurtz; Dr. Francisco Javier Mon MD Contracting Analyst: Signed Normal [facility] D-Dimer Quantitative (DVT/PE )on 01-17-2024 D-DIMER QUANT 2.14 FEU/ug/m Invalid Interpretation Code 0.27-0.49 [facility] Comment on above: Result Comment: D-Di amber ELEVATED (>0.49): Additional studies and clinical assessments are indicated to conclude diagnosis of: Deep Vein Thrombosis (DVT) or Pulmonary Embolism (PE) RESULTS CALLED TO ALMAZ ORDAZ 01/17/24 1534 Heydi Mar. REPORT READ BACK BY SAME . AMENDED REPORT 01/17/24 1535 D-DIMER QUANT previously reported as: 2.14 *H FEU/ug/m D-Dimer ELEVATED (>0.49): Additional studies and clinical assessments are indicated to conclude diagnosis of: Deep Vein Thrombosis (DVT) or Pulmonary Embolism (PE) Performed By: #### L 300.8000 ####[facility] [id number] [place], [address] Emergency Department Summary on 01-17-2024 Emergency Department Summary [facility] Medical Records Department [address] [place] [address] Emergency Department Summary 01/17/24 MR#: [id number] Acct: [id number] Name: SPEEDY BLACKWOOD Rep #: [id number] : 1980 43 From: Francisco Javier Mon MD PCP: CONRAD Miller Status:REG ER Location: ED HPI History of Present Illness Chief Complaint: Chest Pain Narrative Narrative: 43-year-old female who denies significant past medical history except for occasionally smokes cigarettes, 3 to 4-day presents with chest pain that she has had intermittently for the last month. She states it lasts 10 to 15 minutes at a time. No recent nausea or vomiting. Her pain worsened last night worse mainly on the left side. She was unable to lay on her left side. She denies any fevers or chills, no other symptoms. It has been relatively constant since last evening. She now describes pleuritic chest pain as well. The pain went to her left shoulder but she denies any diaphoresis. No leg swelling. [facility] Medical History Wears glasses Wears dentures Gastric reflux Smoker Anxiety Depression Home Medications ???Medication ???Instructions ???Recorded ???Last Taken ???Type gabapentin 300 mg capsule 100 mg PO QHS 06/18/15 Unknown History fluoxetine 40 mg capsule (Prozac) 40 mg PO QPM 09/16/22 Unknown History black cohosh 200 mg capsule 200 mg PO DAILY 07/07/23 Unknown History bupropion HCl 150 mg 24 hr tablet, 150 mg PO DAILY 07/07/23 Unknown History extended release multivitamin (One Daily 1 tab PO DAILY 07/07/23 Unknown History Multivitamin tablet) clonidine HCl 0.1 mg tablet 0.1 mg PO QHS #30 tabs 08/01/23 Unknown Rx apixaban 5 mg (74 tabs) tablets in See Rx Instructions PO .COMPLEX 01/17/24 Unknown Rx a dose pack (Eliquis DVT-PE Treat #74 tabs 30D Start) oxycodone 5 mg tablet 5 mg PO Q6H PRN pain 3 days #12 01/17/24 Unknown Rx tabs Allergy/AdvReac Type Severity Reaction Status Date / Time No Known Allergies Allergy Verified 01/17/24 12:07 Family History Other Liver cancer Throat cancer Surgical History H/O dilation and curettage S/P cholecystectomy History of salpingectomy Social History adopted: No household members: significant other and children current occupational status: employed current occupation: [employer] current occupational exposures/hazards: No pets and animals: Yes pets and animals: guinea pig(s) sexually active: Yes Smoking Status: Current every day smoker tobacco type: cigarettes alcohol intake: never substance use type: does not use caffeine: Yes Type: coffee seatbelt use: always do you feel safe at home: Yes additional social history: Jam Franco: stay's at home watching her 11yr ROS ROS ED ROS Narrative Constitutional: No fever, no chills. HEENT: No sore throat. No neck pain. No loss of vision. No rhinorrhea. Cardiovascular: Positive left-sided chest pain radiating to left shoulder. Left-sided pleuritic pain since yesterday.. No palpitations. No pedal edema. Respiratory: No cough, no shortness of breath. Abdominal: No abdominal pain. No nausea. No vomiting. Genitourinary: No dysuria. No hematuria. Musculoskeletal: No myalgias. No arthralgias. Neurologic: No headaches. No dizziness. No lightheadedness. Skin: No rash. No change in color. Psychiatric: No depression. No anxiety. EXAM Physical Exam Narrative Exam Narrative: Afebrile. Vital signs noted. HEENT examination shows PERRL, EOMI. Neck soft and supple. Cardiovascular examination regular rate and rhythm. Lungs clear to auscultation bilaterally. Abdomen soft nontender with normal active bowel sounds. No rebound or guarding. Neurological examination nonfocal and nonlateralizing. Const Vital Signs: 01/17/24 12:07 01/17/24 13:18 01/17/24 13:18 Temperature 96.9 F L Temperature Source Temporal Pulse Rate 99 71 Respiratory Rate 18 18 Blood Pressure 109/74 98/58 L Blood Pressure Mean 85 71 Pulse Ox 96 97 98 Oxygen Delivery Method Room Air Room Air Room Air 01/17/24 14:00 01/17/24 15:00 01/17/24 16:00 Temperature Temperature Source Pulse Rate 90 86 93 Respiratory Rate 25 H 19 H 18 Blood Pressure 109/75 100/60 99/54 L Blood Pressure Mean 86 73 69 Pulse Ox 97 96 Oxygen Delivery Method Room Air 01/17/24 17:00 01/17/24 18:00 Temperature Temperature Source Pulse Rate 88 88 Respiratory Rate 18 19 H Blood Pressure 106/67 107/71 Blood Pressure Mean 80 83 Pulse Ox 98 98 Oxygen Delivery Method Room Air Room Air Heart Score History: Slightly/Non (more content not included)... Normal [facility] L501.4020on 01-17-2024 TROPONIN-I HS < 3 Low 3.0-54.0 [facility] Comment on above: Result Comment: Plea se Note: New Test Units and Gender Specific Reference Ranges. For more information see Policy Stat Procedure [place] High Sensitivity Troponin (TNIH) and attachments. Performed By: #### L 501.4020 #### [facility] [address] [place], [place], [address] L501.5425on 01-17-2024 TROPONIN-I HS 4 pg/mL Normal 3.0-54.0 [facility] Comment on above: Order Comment: 1 Y Result Comment: Plea se Note: New Test Units and Gender Specific Reference Ranges. For more information see Policy Stat Procedure [place] High Sensitivity Troponin (TNIH) and attachments. Performed By: #### L 500.2500, L100.0100, L501.5425 #### [facility] [address] [place], [place], [address] CNPNon 12-27-2023 CNPN Telephone (SPMEST) SPEEDY BLACKWOOD ([id number]) 1980 F [facility] Date Time Provider Department 12/27/23 GEORGE HOLLIS SPMEST During your visit today, we recorded the following information about you: Evaristo Miramontes MA 12/27/2023 10:05 AM Signed Called patient to verify recent mri's (3) were completed and of upcoming follow up appointment to discuss results on 01/03/24. Patient had no questions at this time. Allergies As of Date: 12/27/2023 (No Known Allergies) Date Reviewed: 11/18/2023 Reviewed by: Evaristo Miramontes MA - Fully Assessed Prescriptions as of 12/27/2023 - gabapentin (NEURONTIN) 100 mg capsule Take 1 capsule by mouth every other day for 90 days. - buPROPion XL (WELLBUTRIN XL) 150 mg 24 hr tablet Take 1 tablet by mouth once daily. - cloNIDine HCl (CATAPRES) 0.1 mg tablet Take 0.1 mg by mouth daily at bedtime. - FLUoxetine (PROZAC) 20 mg capsule Take 1 capsule by mouth once daily. - Cholecalciferol, Vitamin D3, 2,000 unit cap Take 1 capsule by mouth daily at bedtime. - L.ACID/L.CASEI/B.BIF/B. KAVYA/FOS (PROBIOTIC BLEND ORAL) Take 1 capsule by mouth once daily. Problem List As Of Date 12/27/2023 Noted Resolved Cholelithiasis NOS [K80.20] 10/02/2007 06/28/2011 Abdominal pain, right upper quadrant [R10.11] 06/28/2011 Elev transaminase/LDH [R74.01, R74.02] 06/28/2011 Personal history of tobacco use, presenting haz*06/28/2011 [facility] HIGH RISK NEC [V23.89] [O09.899]07/26/2011 11/22/2013 Leg pain [M79.606] 08/31/2011 Tobacco abuse [Z72.0] 12/26/2013 Depression [F32.A] 12/26/2013 Discogenic pain [M54.9] 06/19/2014 DDD (degenerative disc disease), lumbar [M51.36]06/19/2014 Chronic back pain [M54.9, G89.29] 06/19/2014 Encounter Status:Closed by EVARISTO MIRAMONTES on 12/27/23 Normal [facility] MR Brain WO contraston 12-21 * * *Final Report* * * DATE OF EXAM: Dec 22 2023 1:45PM WR [id number] - MRI BRAIN WO IVCON / PROCEDURE REASON: multiple diagnoses * * * * Physician Interpretation * * * * EXAMINATION: MRI CERVICAL SPINE WO IVCON, MRI BRAIN WO IVCON, MRI THORACIC SPINE WO IVCON HISTORY: Hemisensory deficit Hyperreflexia Balance disorder Spinal stenosis of cervical region TECHNIQUE: Routine noncontrast MRI protocol including diffusion and gradient echo images. M: [id number] Routine cervical spine MR protocol without gadolinium. M: [id number] Routine thoracic spine MR protocol. M: [id number] COMPARISON: None. RESULT: BRAIN FINDINGS: Acute Change: There is no evidence of restricted diffusion to suggest an acute infarct. Hemorrhage: No evidence of prior parenchymal hemorrhage on the gradient echo images. Mass Lesion/ Mass Effect: No evidence of an intracranial mass or extra-axial fluid collection. No abnormal parenchymal or leptomeningeal enhancement is noted following contrast administration. No significant mass effect.. There is no evidence of herniation. Chronic Change: The white matter is within normal limits of signal intensity for age. Parenchyma: No significant volume loss for age. The brain parenchyma is otherwise within normal limits of signal intensity and morphology. Ventricles: Normal caliber and morphology. Skull Base: Hypothalamic and pituitary region are grossly normal. Craniocervical junction is normal. No significant marrow replacement process. Vasculature: Major intracranial arterial structures, and dural venous sinuses show typical flow void, suggesting patency by spin echo criteria. 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 There is moderate layering fluid in the right sphenoid sinus. The visualized paranasal sinuses and mastoid air cells are otherwise clear. The orbits and extracranial soft tissues are unremarkable. CERVICAL SPINE FINDINGS: Counting reference: Craniocervical junction. Localizer images: No significant findings. Alignment: Alignment is anatomic. Craniocervical junction: Craniocervical junction is normal. Cord: The visualized cord is within normal limits of signal intensity and morphology. Bone marrow signal/fracture: There Modic type II changes at endplates of C5-C6. There are Schmorl's nodes at the endplates of C6 and C4. No evidence of pathologic marrow infiltration. No evidence of prior fracture. Cervical soft tissues: The paraspinal soft tissues are within normal limits. C2-C3: Canal and foramina are patent. C3-C4: Canal and foramina are patent. C4-C5: There is mild bilateral facet arthropathy and uncovertebral osteophytosis resulting in moderate right neural foraminal narrowing. There is no left neural foraminal narrowing. There is no spinal canal stenosis. C5-C6: There is mild bilateral facet arthropathy and disc osteophyte complex resulting in partial effacement of ventral thecal sac without cord impingement and mild bilateral neural foramina greater on the left. C6-C7: Canal and foramina are patent. C7-T1: Canal and foramina are patent. THORACIC SPINE FINDINGS: Counting Reference: Lumbosacral junction. For the purposes of this report, the most caudal normal disc space in the lumbar region will be labeled as L5-S1. The iliac crest will serve as a secondary landmark to identify the L4-5 level. Localizer images: No significant findings. Alignment: Alignment is anatomic. Cord: The visualized cord is within normal limits of signal intensity and morphology. Bone marrow signal/fracture: No evidence of pathologic marrow infiltration. No evidence of prior fracture. Thoracic paraspinal soft tissues: The paraspinal soft tissues are within normal limits. Canal and foramina: Small diffuse disc bulge at T8-T9 resulting in partial effacement of ventral thecal sac without cord impingement. The thoracic canal and foramina are otherwise patent. DIVISION OF RADIOLOGY Provider, [facility] - 12/22/2023 * * *Final Report* * * DATE OF EXAM: Dec 22 2023 1:45PM [facility] 0294 - MRI BRAIN WO IVCON / PROCEDURE REASON: multiple diagnoses * * * * Physician Interpretation * * * * EXAMINATION: MRI CERVICAL SPINE WO IVCON, MRI BRAIN WO IVCON, MRI THORACIC SPINE WO IVCON HISTORY: Hemisensory deficit Hyperreflexia Balance disorder Spinal stenosis of cervical region TECHNIQUE: Routine noncontrast MRI protocol including diffusion and gradient echo images. M: [email or web address] Routine cervical spine MR protocol without gadolinium. M: [email or web address]_2 Routine thoracic spine MR protocol. M: [email or web address]_2 COMPARISON: None. RESULT: BRAIN FINDINGS: Acute Change: There is no evidence of restricted diffusion to suggest an acute infarct. Hemorrhage: No evidence of prior parenchymal hemorrhage on the gradient echo images. Mass Lesion/ Mass Effect: No evidence of an intracranial mass or extra-axial fluid collection. No abnormal parenchymal or leptomeningeal enhancement is noted following contrast administration. No significant mass effect.. There is no evidence of herniation. Chronic Change: The white matter is within normal limits of signal intensity for age. Parenchyma: No significant volume loss for age. The brain parenchyma is otherwise within normal limits of signal intensity and morphology. Ventricles: Normal caliber and morphology. Skull Base: Hypothalamic and pituitary region are grossly normal. Craniocervical junction is normal. No significant marrow replacement process. Vasculature: Major intracranial arterial structures, and dural venous sinuses show typical flow void, suggesting patency by spin echo criteria. 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 There is moderate layering fluid in the right sphenoid sinus. The visualized paranasal sinuses and mastoid air cells are otherwise clear. The orbits and extracranial soft tissues are unremarkable. CERVICAL SPINE FINDINGS: Counting reference: Craniocervical junction. Localizer images: No significant findings. Alignment: Alignment is anatomic. Craniocervical junction: Craniocervical junction is normal. Cord: The visualized cord is within normal limits of signal intensity and morphology. Bone marrow signal/fracture: There Modic type II changes at endplates of C5-C6. There are Schmorl's nodes at the endplates of C6 and C4. No evidence of pathologic marrow infiltration. No evidence of prior fracture. Cervical soft tissues: The paraspinal soft tissues are within normal limits. C2-C3: Canal and foramina are patent. C3-C4: Canal and foramina are patent. C4-C5: There is mild bilateral facet arthropathy and uncovertebral osteophytosis resulting in moderate right neural foraminal narrowing. There is no left neural foraminal narrowing. There is no spinal canal stenosis. C5-C6: There is mild bilateral facet arthropathy and disc osteophyte complex resulting in partial effacement of ventral thecal sac without cord impingement and mild bilateral neural foramina greater on the left. C6-C7: Canal and foramina are patent. C7-T1: Canal and foramina are patent. THORACIC SPINE FINDINGS: Counting Reference: Lumbosacral junction. For the purposes of this report, the most caudal normal disc space in the lumbar region will be labeled as L5-S1. The iliac crest will serve as a secondary landmark to identify the L4-5 level. Localizer images: No significant findings. Alignment: Alignment is anatomic. Cord: The visualized cord is within normal limits of signal intensity and morphology. Bone marrow signal/fracture: No evidence of pathologic marrow infiltration. No evidence of prior fracture. Thoracic paraspinal soft tissues: The paraspinal soft tissues are within normal limits. Canal and foramina: Small diffuse disc bulge at T8-T9 resulting in partial effacement of ventral thecal sac without cord impingement. The thoracic canal and foramina are otherwise patent. IMPRESSION IMPRESSION: No acute findings. No acute infarction, intracranial hemorrhage or intracranial mass lesion. Degenerative changes of the cervical spine, most pronounced at C4-C5 with moderate right neural foraminal narrowing. No significant spinal canal stenosis or neural foraminal narrowing in the thoracic spine. Contracting Analyst: [employer] Transcribe Date/Time: Dec 22 2023 2:19P Dictated by : NORMA GOMEZ MD This examination was interpreted and the report reviewed and electronically signed by: NORMA GOMEZ MD on Dec 22 2023 2:27PM [facility] MR Cervical spine WO contras ton 12-22-2023 * * *Final Report* * * DATE OF EXAM: Dec 22 2023 1:45PM [facility] 0297 - MRI CERVICAL SPINE WO IVCON / PROCEDURE REASON: multiple diagnoses * * * * Physician Interpretation * * * * EXAMINATION: MRI CERVICAL SPINE WO IVCON, MRI BRAIN WO IVCON, MRI THORACIC SPINE WO IVCON HISTORY: Hemisensory deficit Hyperreflexia Balance disorder Spinal stenosis of cervical region TECHNIQUE: Routine noncontrast MRI protocol including diffusion and gradient echo images. M: [email or web address] Routine cervical spine MR protocol without gadolinium. M: [email or web address]_2 Routine thoracic spine MR protocol. M: [email or web address]_2 COMPARISON: None. RESULT: BRAIN FINDINGS: Acute Change: There is no evidence of restricted diffusion to suggest an acute infarct. Hemorrhage: No evidence of prior parenchymal hemorrhage on the gradient echo images. Mass Lesion/ Mass Effect: No evidence of an intracranial mass or extra-axial fluid collection. No abnormal parenchymal or leptomeningeal enhancement is noted following contrast administration. No significant mass effect.. There is no evidence of herniation. Chronic Change: The white matter is within normal limits of signal intensity for age. Parenchyma: No significant volume loss for age. The brain parenchyma is otherwise within normal limits of signal intensity and morphology. Ventricles: Normal caliber and morphology. Skull Base: Hypothalamic and pituitary region are grossly normal. Craniocervical junction is normal. No significant marrow replacement process. Vasculature: Major intracranial arterial structures, and dural venous sinuses show typical flow void, suggesting patency by spin echo criteria. 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 There is moderate layering fluid in the right sphenoid sinus. The visualized paranasal sinuses and mastoid air cells are otherwise clear. The orbits and extracranial soft tissues are unremarkable. CERVICAL SPINE FINDINGS: Counting reference: Craniocervical junction. Localizer images: No significant findings. Alignment: Alignment is anatomic. Craniocervical junction: Craniocervical junction is normal. Cord: The visualized cord is within normal limits of signal intensity and morphology. Bone marrow signal/fracture: There Modic type II changes at endplates of C5-C6. There are Schmorl's nodes at the endplates of C6 and C4. No evidence of pathologic marrow infiltration. No evidence of prior fracture. Cervical soft tissues: The paraspinal soft tissues are within normal limits. C2-C3: Canal and foramina are patent. C3-C4: Canal and foramina are patent. C4-C5: There is mild bilateral facet arthropathy and uncovertebral osteophytosis resulting in moderate right neural foraminal narrowing. There is no left neural foraminal narrowing. There is no spinal canal stenosis. C5-C6: There is mild bilateral facet arthropathy and disc osteophyte complex resulting in partial effacement of ventral thecal sac without cord impingement and mild bilateral neural foramina greater on the left. C6-C7: Canal and foramina are patent. C7-T1: Canal and foramina are patent. THORACIC SPINE FINDINGS: Counting Reference: Lumbosacral junction. For the purposes of this report, the most caudal normal disc space in the lumbar region will be labeled as L5-S1. The iliac crest will serve as a secondary landmark to identify the L4-5 level. Localizer images: No significant findings. Alignment: Alignment is anatomic. Cord: The visualized cord is within normal limits of signal intensity and morphology. Bone marrow signal/fracture: No evidence of pathologic marrow infiltration. No evidence of prior fracture. Thoracic paraspinal soft tissues: The paraspinal soft tissues are within normal limits. Canal and foramina: Small diffuse disc bulge at T8-T9 resulting in partial effacement of ventral thecal sac without cord impingement. The thoracic canal and foramina are otherwise patent. DIVISION OF RADIOLOGY [facility] * * *Final Report* * * DATE OF EXAM: Dec 22 2023 1:45PM [facility] 0297 - MRI CERVICAL SPINE WO IVCON / PROCEDURE REASON: multiple diagnoses * * * * Physician Interpretation * * * * EXAMINATION: MRI CERVICAL SPINE WO IVCON, MRI BRAIN WO IVCON, MRI THORACIC SPINE WO IVCON HISTORY: Hemisensory deficit Hyperreflexia Balance disorder Spinal stenosis of cervical region TECHNIQUE: Routine noncontrast MRI protocol including diffusion and gradient echo images. M: [email or web address] Routine cervical spine MR protocol without gadolinium. M: [email or web address]_2 Routine thoracic spine MR protocol. M: MTSWO_2 COMPARISON: None. RESULT: BRAIN FINDINGS: Acute Change: There is no evidence of restricted diffusion to suggest an acute infarct. Hemorrhage: No evidence of prior parenchymal hemorrhage on the gradient echo images. Mass Lesion/ Mass Effect: No evidence of an intracranial mass or extra-axial fluid collection. No abnormal parenchymal or leptomeningeal enhancement is noted following contrast administration. No significant mass effect.. There is no evidence of herniation. Chronic Change: The white matter is within normal limits of signal intensity for age. Parenchyma: No significant volume loss for age. The brain parenchyma is otherwise within normal limits of signal intensity and morphology. Ventricles: Normal caliber and morphology. Skull Base: Hypothalamic and pituitary region are grossly normal. Craniocervical junction is normal. No significant marrow replacement process. Vasculature: Major intracranial arterial structures, and dural venous sinuses show typical flow void, suggesting patency by spin echo criteria. 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 There is moderate layering fluid in the right sphenoid sinus. The visualized paranasal sinuses and mastoid air cells are otherwise clear. The orbits and extracranial soft tissues are unremarkable. CERVICAL SPINE FINDINGS: Counting reference: Craniocervical junction. Localizer images: No significant findings. Alignment: Alignment is anatomic. Craniocervical junction: Craniocervical junction is normal. Cord: The visualized cord is within normal limits of signal intensity and morphology. Bone marrow signal/fracture: There Modic type II changes at endplates of C5-C6. There are Schmorl's nodes at the endplates of C6 and C4. No evidence of pathologic marrow infiltration. No evidence of prior fracture. Cervical soft tissues: The paraspinal soft tissues are within normal limits. C2-C3: Canal and foramina are patent. C3-C4: Canal and foramina are patent. C4-C5: There is mild bilateral facet arthropathy and uncovertebral osteophytosis resulting in moderate right neural foraminal narrowing. There is no left neural foraminal narrowing. There is no spinal canal stenosis. C5-C6: There is mild bilateral facet arthropathy and disc osteophyte complex resulting in partial effacement of ventral thecal sac without cord impingement and mild bilateral neural foramina greater on the left. C6-C7: Canal and foramina are patent. C7-T1: Canal and foramina are patent. THORACIC SPINE FINDINGS: Counting Reference: Lumbosacral junction. For the purposes of this report, the most caudal normal disc space in the lumbar region will be labeled as L5-S1. The iliac crest will serve as a secondary landmark to identify the L4-5 level. Localizer images: No significant findings. Alignment: Alignment is anatomic. Cord: The visualized cord is within normal limits of signal intensity and morphology. Bone marrow signal/fracture: No evidence of pathologic marrow infiltration. No evidence of prior fracture. Thoracic paraspinal soft tissues: The paraspinal soft tissues are within normal limits. Canal and foramina: Small diffuse disc bulge at T8-T9 resulting in partial effacement of ventral thecal sac without cord impingement. The thoracic canal and foramina are otherwise patent. IMPRESSION IMPRESSION: No acute findings. No acute infarction, intracranial hemorrhage or intracranial mass lesion. Degenerative changes of the cervical spine, most pronounced at C4-C5 with moderate right neural foraminal narrowing. No significant spinal canal stenosis or neural foraminal narrowing in the thoracic spine. Contracting Analyst: ROBERT[employer] CH[employer]B Transcribe Date/Time: Dec 22 2023 2:19P Dictated by : NORMA GOMEZ MD This examination was interpreted and the report reviewed and electronically signed by: NORMA GOMEZ MD on Dec 22 2023 2:27PM [facility] MR Thoracic spine WO contras ton 12-22-2023 * * *Final Report* * * DATE OF EXAM: Dec 22 2023 1:45PM [facility] 0325 - MRI THORACIC SPINE WO IVCON / PROCEDURE REASON: multiple diagnoses * * * * Physician Interpretation * * * * EXAMINATION: MRI CERVICAL SPINE WO IVCON, MRI BRAIN WO IVCON, MRI THORACIC SPINE WO IVCON HISTORY: Hemisensory deficit Hyperreflexia Balance disorder Spinal stenosis of cervical region TECHNIQUE: Routine noncontrast MRI protocol including diffusion and gradient echo images. M: [email or web address] Routine cervical spine MR protocol without gadolinium. M: [email or web address]_2 Routine thoracic spine MR protocol. M: MTSWO_2 COMPARISON: None. RESULT: BRAIN FINDINGS: Acute Change: There is no evidence of restricted diffusion to suggest an acute infarct. Hemorrhage: No evidence of prior parenchymal hemorrhage on the gradient echo images. Mass Lesion/ Mass Effect: No evidence of an intracranial mass or extra-axial fluid collection. No abnormal parenchymal or leptomeningeal enhancement is noted following contrast administration. No significant mass effect.. There is no evidence of herniation. Chronic Change: The white matter is within normal limits of signal intensity for age. Parenchyma: No significant volume loss for age. The brain parenchyma is otherwise within normal limits of signal intensity and morphology. Ventricles: Normal caliber and morphology. Skull Base: Hypothalamic and pituitary region are grossly normal. Craniocervical junction is normal. No significant marrow replacement process. Vasculature: Major intracranial arterial structures, and dural venous sinuses show typical flow void, suggesting patency by spin echo criteria. 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 There is moderate layering fluid in the right sphenoid sinus. The visualized paranasal sinuses and mastoid air cells are otherwise clear. The orbits and extracranial soft tissues are unremarkable. CERVICAL SPINE FINDINGS: Counting reference: Craniocervical junction. Localizer images: No significant findings. Alignment: Alignment is anatomic. Craniocervical junction: Craniocervical junction is normal. Cord: The visualized cord is within normal limits of signal intensity and morphology. Bone marrow signal/fracture: There Modic type II changes at endplates of C5-C6. There are Schmorl's nodes at the endplates of C6 and C4. No evidence of pathologic marrow infiltration. No evidence of prior fracture. Cervical soft tissues: The paraspinal soft tissues are within normal limits. C2-C3: Canal and foramina are patent. C3-C4: Canal and foramina are patent. C4-C5: There is mild bilateral facet arthropathy and uncovertebral osteophytosis resulting in moderate right neural foraminal narrowing. There is no left neural foraminal narrowing. There is no spinal canal stenosis. C5-C6: There is mild bilateral facet arthropathy and disc osteophyte complex resulting in partial effacement of ventral thecal sac without cord impingement and mild bilateral neural foramina greater on the left. C6-C7: Canal and foramina are patent. C7-T1: Canal and foramina are patent. THORACIC SPINE FINDINGS: Counting Reference: Lumbosacral junction. For the purposes of this report, the most caudal normal disc space in the lumbar region will be labeled as L5-S1. The iliac crest will serve as a secondary landmark to identify the L4-5 level. Localizer images: No significant findings. Alignment: Alignment is anatomic. Cord: The visualized cord is within normal limits of signal intensity and morphology. Bone marrow signal/fracture: No evidence of pathologic marrow infiltration. No evidence of prior fracture. Thoracic paraspinal soft tissues: The paraspinal soft tissues are within normal limits. Canal and foramina: Small diffuse disc bulge at T8-T9 resulting in partial effacement of ventral thecal sac without cord impingement. The thoracic canal and foramina are otherwise patent. DIVISION OF RADIOLOGY Provider, [facility] - 12/22/2023 * * *Final Report* * * DATE OF EXAM: Dec 22 2023 1:45PM [facility] 0325 - MRI THORACIC SPINE WO IVCON / PROCEDURE REASON: multiple diagnoses * * * * Physician Interpretation * * * * EXAMINATION: MRI CERVICAL SPINE WO IVCON, MRI BRAIN WO IVCON, MRI THORACIC SPINE WO IVCON HISTORY: Hemisensory deficit Hyperreflexia Balance disorder Spinal stenosis of cervical region TECHNIQUE: Routine noncontrast MRI protocol including diffusion and gradient echo images. M: [email or web address] Routine cervical spine MR protocol without gadolinium. M: [email or web address]_2 Routine thoracic spine MR protocol. M: MTSWO_2 COMPARISON: None. RESULT: BRAIN FINDINGS: Acute Change: There is no evidence of restricted diffusion to suggest an acute infarct. Hemorrhage: No evidence of prior parenchymal hemorrhage on the gradient echo images. Mass Lesion/ Mass Effect: No evidence of an intracranial mass or extra-axial fluid collection. No abnormal parenchymal or leptomeningeal enhancement is noted following contrast administration. No significant mass effect.. There is no evidence of herniation. Chronic Change: The white matter is within normal limits of signal intensity for age. Parenchyma: No significant volume loss for age. The brain parenchyma is otherwise within normal limits of signal intensity and morphology. Ventricles: Normal caliber and morphology. Skull Base: Hypothalamic and pituitary region are grossly normal. Craniocervical junction is normal. No significant marrow replacement process. Vasculature: Major intracranial arterial structures, and dural venous sinuses show typical flow void, suggesting patency by spin echo criteria. 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 There is moderate layering fluid in the right sphenoid sinus. The visualized paranasal sinuses and mastoid air cells are otherwise clear. The orbits and extracranial soft tissues are unremarkable. CERVICAL SPINE FINDINGS: Counting reference: Craniocervical junction. Localizer images: No significant findings. Alignment: Alignment is anatomic. Craniocervical junction: Craniocervical junction is normal. Cord: The visualized cord is within normal limits of signal intensity and morphology. Bone marrow signal/fracture: There Modic type II changes at endplates of C5-C6. There are Schmorl's nodes at the endplates of C6 and C4. No evidence of pathologic marrow infiltration. No evidence of prior fracture. Cervical soft tissues: The paraspinal soft tissues are within normal limits. C2-C3: Canal and foramina are patent. C3-C4: Canal and foramina are patent. C4-C5: There is mild bilateral facet arthropathy and uncovertebral osteophytosis resulting in moderate right neural foraminal narrowing. There is no left neural foraminal narrowing. There is no spinal canal stenosis. C5-C6: There is mild bilateral facet arthropathy and disc osteophyte complex resulting in partial effacement of ventral thecal sac without cord impingement and mild bilateral neural foramina greater on the left. C6-C7: Canal and foramina are patent. C7-T1: Canal and foramina are patent. THORACIC SPINE FINDINGS: Counting Reference: Lumbosacral junction. For the purposes of this report, the most caudal normal disc space in the lumbar region will be labeled as L5-S1. The iliac crest will serve as a secondary landmark to identify the L4-5 level. Localizer images: No significant findings. Alignment: Alignment is anatomic. Cord: The visualized cord is within normal limits of signal intensity and morphology. Bone marrow signal/fracture: No evidence of pathologic marrow infiltration. No evidence of prior fracture. Thoracic paraspinal soft tissues: The paraspinal soft tissues are within normal limits. Canal and foramina: Small diffuse disc bulge at T8-T9 resulting in partial effacement of ventral thecal sac without cord impingement. The thoracic canal and foramina are otherwise patent. IMPRESSION IMPRESSION: No acute findings. No acute infarction, intracranial hemorrhage or intracranial mass lesion. Degenerative changes of the cervical spine, most pronounced at C4-C5 with moderate right neural foraminal narrowing. No significant spinal canal stenosis or neural foraminal narrowing in the thoracic spine. Contracting Analyst: [employer] Transcribe Date/Time: Dec 22 2023 2:19P Dictated by : NORMA GOMEZ MD This examination was interpreted and the report reviewed and electronically signed by: NORMA GOMEZ MD on Dec 22 2023 2:27PM [facility] MRI BRAIN WO IVCONon 024 MRI BRAIN WO IVCON * * *Final Report* * * DATE OF EXAM: Dec 22 2023 1:45PM [facility] 0294 - MRI BRAIN WO IVCON / PROCEDURE REASON: multiple diagnoses * * * * Physician Interpretation * * * * EXAMINATION: MRI CERVICAL SPINE WO IVCON, MRI BRAIN WO IVCON, MRI THORACIC SPINE WO IVCON HISTORY: Hemisensory deficit Hyperreflexia Balance disorder Spinal stenosis of cervical region TECHNIQUE: Routine noncontrast MRI protocol including diffusion and gradient echo images. M: [email or web address] Routine cervical spine MR protocol without gadolinium. M: [email or web address]_2 Routine thoracic spine MR protocol. M: MTSWO_2 COMPARISON: None. RESULT: BRAIN FINDINGS: Acute Change: There is no evidence of restricted diffusion to suggest an acute infarct. Hemorrhage: No evidence of prior parenchymal hemorrhage on the gradient echo images. Mass Lesion/ Mass Effect: No evidence of an intracranial mass or extra-axial fluid collection. No abnormal parenchymal or leptomeningeal enhancement is noted following contrast administration. No significant mass effect.. There is no evidence of herniation. Chronic Change: The white matter is within normal limits of signal intensity for age. Parenchyma: No significant volume loss for age. The brain parenchyma is otherwise within normal limits of signal intensity and morphology. Ventricles: Normal caliber and morphology. Skull Base: Hypothalamic and pituitary region are grossly normal. Craniocervical junction is normal. No significant marrow replacement process. Vasculature: Major intracranial arterial structures, and dural venous sinuses show typical flow void, suggesting patency by spin echo criteria. 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 There is moderate layering fluid in the right sphenoid sinus. The visualized paranasal sinuses and mastoid air cells are otherwise clear. The orbits and extracranial soft tissues are unremarkable. CERVICAL SPINE FINDINGS: Counting reference: Craniocervical junction. Localizer images: No significant findings. Alignment: Alignment is anatomic. Craniocervical junction: Craniocervical junction is normal. Cord: The visualized cord is within normal limits of signal intensity and morphology. Bone marrow signal/fracture: There Modic type II changes at endplates of C5-C6. There are Schmorl's nodes at the endplates of C6 and C4. No evidence of pathologic marrow infiltration. No evidence of prior fracture. Cervical soft tissues: The paraspinal soft tissues are within normal limits. C2-C3: Canal and foramina are patent. C3-C4: Canal and foramina are patent. C4-C5: There is mild bilateral facet arthropathy and uncovertebral osteophytosis resulting in moderate right neural foraminal narrowing. There is no left neural foraminal narrowing. There is no spinal canal stenosis. C5-C6: There is mild bilateral facet arthropathy and disc osteophyte complex resulting in partial effacement of ventral thecal sac without cord impingement and mild bilateral neural foramina greater on the left. C6-C7: Canal and foramina are patent. C7-T1: Canal and foramina are patent. THORACIC SPINE FINDINGS: Counting Reference: Lumbosacral junction. For the purposes of this report, the most caudal normal disc space in the lumbar region will be labeled as L5-S1. The iliac crest will serve as a secondary landmark to identify the L4-5 level. Localizer images: No significant findings. Alignment: Alignment is anatomic. Cord: The visualized cord is within normal limits of signal intensity and morphology. Bone marrow signal/fracture: No evidence of pathologic marrow infiltration. No evidence of prior fracture. Thoracic paraspinal soft tissues: The paraspinal soft tissues are within normal limits. Canal and foramina: Small diffuse disc bulge at T8-T9 resulting in partial effacement of ventral thecal sac without cord impingement. The thoracic canal and foramina are otherwise patent. IMPRESSION: No acute findings. No acute infarction, intracranial hemorrhage or intracranial mass lesion. Degenerative changes of the cervical spine, most pronounced at C4-C5 with moderate right neural foraminal narrowing. No significant spinal canal stenosis or neural foraminal narrowing in the thoracic spine. Contracting Analyst: TROY Transcribe Date/Time: Dec 22 2023 2:19P Dictated by : NORMA GOMEZ MD This examination was interpreted and the report reviewed and electronically signed by: NORMA GOMEZ MD on Dec 22 2023 2:27PM EST [id number] Normal [facility] MRI CERVICAL SPINE WO IVCONo n 12-22-2023 MRI CERVICAL SPINE WO IVCON * * *Final Report* * * DATE OF EXAM: Dec 22 2023 1:45PM [id number] - MRI CERVICAL SPINE WO IVCON / PROCEDURE REASON: multiple diagnoses * * * * Physician Interpretation * * * * EXAMINATION: MRI CERVICAL SPINE WO IVCON, MRI BRAIN WO IVCON, MRI THORACIC SPINE WO IVCON HISTORY: Hemisensory deficit Hyperreflexia Balance disorder Spinal stenosis of cervical region TECHNIQUE: Routine noncontrast MRI protocol including diffusion and gradient echo images. M: [id number] Routine cervical spine MR protocol without gadolinium. M: [id number]_2 Routine thoracic spine MR protocol. M: [id number]_2 COMPARISON: None. RESULT: BRAIN FINDINGS: Acute Change: There is no evidence of restricted diffusion to suggest an acute infarct. Hemorrhage: No evidence of prior parenchymal hemorrhage on the gradient echo images. Mass Lesion/ Mass Effect: No evidence of an intracranial mass or extra-axial fluid collection. No abnormal parenchymal or leptomeningeal enhancement is noted following contrast administration. No significant mass effect.. There is no evidence of herniation. Chronic Change: The white matter is within normal limits of signal intensity for age. Parenchyma: No significant volume loss for age. The brain parenchyma is otherwise within normal limits of signal intensity and morphology. Ventricles: Normal caliber and morphology. Skull Base: Hypothalamic and pituitary region are grossly normal. Craniocervical junction is normal. No significant marrow replacement process. Vasculature: Major intracranial arterial structures, and dural venous sinuses show typical flow void, suggesting patency by spin echo criteria. 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 There is moderate layering fluid in the right sphenoid sinus. The visualized paranasal sinuses and mastoid air cells are otherwise clear. The orbits and extracranial soft tissues are unremarkable. CERVICAL SPINE FINDINGS: Counting reference: Craniocervical junction. Localizer images: No significant findings. Alignment: Alignment is anatomic. Craniocervical junction: Craniocervical junction is normal. Cord: The visualized cord is within normal limits of signal intensity and morphology. Bone marrow signal/fracture: There Modic type II changes at endplates of C5-C6. There are Schmorl's nodes at the endplates of C6 and C4. No evidence of pathologic marrow infiltration. No evidence of prior fracture. Cervical soft tissues: The paraspinal soft tissues are within normal limits. C2-C3: Canal and foramina are patent. C3-C4: Canal and foramina are patent. C4-C5: There is mild bilateral facet arthropathy and uncovertebral osteophytosis resulting in moderate right neural foraminal narrowing. There is no left neural foraminal narrowing. There is no spinal canal stenosis. C5-C6: There is mild bilateral facet arthropathy and disc osteophyte complex resulting in partial effacement of ventral thecal sac without cord impingement and mild bilateral neural foramina greater on the left. C6-C7: Canal and foramina are patent. C7-T1: Canal and foramina are patent. THORACIC SPINE FINDINGS: Counting Reference: Lumbosacral junction. For the purposes of this report, the most caudal normal disc space in the lumbar region will be labeled as L5-S1. The iliac crest will serve as a secondary landmark to identify the L4-5 level. Localizer images: No significant findings. Alignment: Alignment is anatomic. Cord: The visualized cord is within normal limits of signal intensity and morphology. Bone marrow signal/fracture: No evidence of pathologic marrow infiltration. No evidence of prior fracture. Thoracic paraspinal soft tissues: The paraspinal soft tissues are within normal limits. Canal and foramina: Small diffuse disc bulge at T8-T9 resulting in partial effacement of ventral thecal sac without cord impingement. The thoracic canal and foramina are otherwise patent. IMPRESSION: No acute findings. No acute infarction, intracranial hemorrhage or intracranial mass lesion. Degenerative changes of the cervical spine, most pronounced at C4-C5 with moderate right neural foraminal narrowing. No significant spinal canal stenosis or neural foraminal narrowing in the thoracic spine. Contracting Analyst: TROY Transcribe Date/Time: Dec 22 2023 2:19P Dictated by : NORMA GOMEZ MD This examination was interpreted and the report reviewed and electronically signed by: NORMA GOMEZ MD on Dec 22 2023 2:27PM EST [id number] Normal [facility] MRI THORACIC SPINE WO IVCONo n 12-22-2023 MRI THORACIC SPINE WO IVCON * * *Final Report* * * DATE OF EXAM: Dec 22 2023 1:45PM [facility] [id number] - MRI THORACIC SPINE WO IVCON / PROCEDURE REASON: multiple diagnoses * * * * Physician Interpretation * * * * EXAMINATION: MRI CERVICAL SPINE WO IVCON, MRI BRAIN WO IVCON, MRI THORACIC SPINE WO IVCON HISTORY: Hemisensory deficit Hyperreflexia Balance disorder Spinal stenosis of cervical region TECHNIQUE: Routine noncontrast MRI protocol including diffusion and gradient echo images. M: [id number] Routine cervical spine MR protocol without gadolinium. M: MRCPWO_2 Routine thoracic spine MR protocol. M: MTSWO_2 COMPARISON: None. RESULT: BRAIN FINDINGS: Acute Change: There is no evidence of restricted diffusion to suggest an acute infarct. Hemorrhage: No evidence of prior parenchymal hemorrhage on the gradient echo images. Mass Lesion/ Mass Effect: No evidence of an intracranial mass or extra-axial fluid collection. No abnormal parenchymal or leptomeningeal enhancement is noted following contrast administration. No significant mass effect.. There is no evidence of herniation. Chronic Change: The white matter is within normal limits of signal intensity for age. Parenchyma: No significant volume loss for age. The brain parenchyma is otherwise within normal limits of signal intensity and morphology. Ventricles: Normal caliber and morphology. Skull Base: Hypothalamic and pituitary region are grossly normal. Craniocervical junction is normal. No significant marrow replacement process. Vasculature: Major intracranial arterial structures, and dural venous sinuses show typical flow void, suggesting patency by spin echo criteria. 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 There is moderate layering fluid in the right sphenoid sinus. The visualized paranasal sinuses and mastoid air cells are otherwise clear. The orbits and extracranial soft tissues are unremarkable. CERVICAL SPINE FINDINGS: Counting reference: Craniocervical junction. Localizer images: No significant findings. Alignment: Alignment is anatomic. Craniocervical junction: Craniocervical junction is normal. Cord: The visualized cord is within normal limits of signal intensity and morphology. Bone marrow signal/fracture: There Modic type II changes at endplates of C5-C6. There are Schmorl's nodes at the endplates of C6 and C4. No evidence of pathologic marrow infiltration. No evidence of prior fracture. Cervical soft tissues: The paraspinal soft tissues are within normal limits. C2-C3: Canal and foramina are patent. C3-C4: Canal and foramina are patent. C4-C5: There is mild bilateral facet arthropathy and uncovertebral osteophytosis resulting in moderate right neural foraminal narrowing. There is no left neural foraminal narrowing. There is no spinal canal stenosis. C5-C6: There is mild bilateral facet arthropathy and disc osteophyte complex resulting in partial effacement of ventral thecal sac without cord impingement and mild bilateral neural foramina greater on the left. C6-C7: Canal and foramina are patent. C7-T1: Canal and foramina are patent. THORACIC SPINE FINDINGS: Counting Reference: Lumbosacral junction. For the purposes of this report, the most caudal normal disc space in the lumbar region will be labeled as L5-S1. The iliac crest will serve as a secondary landmark to identify the L4-5 level. Localizer images: No significant findings. Alignment: Alignment is anatomic. Cord: The visualized cord is within normal limits of signal intensity and morphology. Bone marrow signal/fracture: No evidence of pathologic marrow infiltration. No evidence of prior fracture. Thoracic paraspinal soft tissues: The paraspinal soft tissues are within normal limits. Canal and foramina: Small diffuse disc bulge at T8-T9 resulting in partial effacement of ventral thecal sac without cord impingement. The thoracic canal and foramina are otherwise patent. IMPRESSION: No acute findings. No acute infarction, intracranial hemorrhage or intracranial mass lesion. Degenerative changes of the cervical spine, most pronounced at C4-C5 with moderate right neural foraminal narrowing. No significant spinal canal stenosis or neural foraminal narrowing in the thoracic spine. Contracting Analyst: TROY Transcribe Date/Time: Dec 22 2023 2:19P Dictated by : NORMA GOMEZ MD This examination was interpreted and the report reviewed and electronically signed by: NORMA GOMEZ MD on Dec 22 2023 2:27PM EST [id number] Normal [facility] No Panel Informationon 12-21 IMPRESSION: No acute findings. No acute infarction, intracranial hemorrhage or intracranial mass lesion. Degenerative changes of the cervical spine, most pronounced at C4-C5 with moderate right neural foraminal narrowing. No significant spinal canal stenosis or neural foraminal narrowing in the thoracic spine. Contracting Analyst: PSCB Transcribe Date/Time: Dec 22 2023 2:19P Dictated by : NORMA GOMEZ MD This examination was interpreted and the report reviewed and electronically signed by: NORMA GOMEZ MD on Dec 22 2023 2:27PM EST DIVISION OF RADIOLOGY Radiology Study observation (narrative) [facility] No Panel InformationOrdered By: [facility]cf Provider on 12-22-2023 [facility] CNOVon 11-18-2023 CNOV Office Visit (SPMEST ) SPEEDY BLACKWOOD ([id number]) 1980 F [employer] Date Time Provider Department 11/18/23 10:10 AM GEORGE HOLLIS SPMEST During your visit today, we recorded the following information about you: Respiration Weight Height 12/minute 76.2 kg 1.626 m George Hollis DO 11/23/2023 12:31 AM Signed [facility] Radicular Leg Pain - Chronic (> 12 weeks) Initial Exam SUBJECTIVE HISTORY OF PRESENT ILLNESS: Speedy Blackwood is a 43 year old female who presents with a chief complaint of low back and leg pain and is seen in consultation requested by Dr. Nguyen Kurtz for an opinion regarding low back and leg symptoms.. My final recommendations will be communicated back to the requesting physician by way of shared medical record or letter via US mail. Patient presents today for an opinion on her low back pain complaints. Reports she has dealt with low back pain for many years. Has been dealing with radicular pain complaints for many months. Primary care provider has trialed her on gabapentin and motrin. Patient describes pain and paresthesias radiating to the left lateral thigh. Has had low back pain as above for many years. Worked in [employer] in 2006. Has been dealing with bladder and bowel incontinence. Other Issues Addressed at the Visit Today: None. Precipitating Event: None PAIN EVALUATION No data found in the last 1 encounters. Pain Radiation: into the left thigh Aggravating Factors: Flexion, Standing Alleviating Factors: None Pain Ratio: 50 % back pain, 50 % leg pain Prior Therapy: medications Litigation: No Workers' Compensation: No YELLOW AND BLUE FLAGS No-Neg Attitude; Back Pain is Disabling No-Avoiding Activity (for Fear of Pain) YES-Depression or Anxiety Disorders No-Social Problems No-Substance Use Disorder No-Job Dissatisfaction No-Financial Disincentives Patient Entered Questionnaires 11/17/2023 Spine Questions Pain Location: Lower back Pain Duration: More than 5 years Pain over last 6 months: Every day or nearly every day in the past 6 months Symptoms from neck/cervical spine: Yes Employment Status: Working now Involved in law suit/legal claim: No 11/17/2023 Spine Red Flags Any type of cancer: No Unexplained fever: No Bowel or bladder disfunction: Yes Unintentional weight loss: No Osteoporosis: No 11/17/2023 Neck Questionnaires Benzel Modified MARA Score 14 (Moderate Myelopathy Symptoms) PROMIS Score Percentiles 11/17/2023 Physical Health Physical Function Percentile 31 Sleep Percentile 27* Fatigue Percentile 5 Pain Interference Percentile 16* 11/17/2023 PROMIS SOCIAL ROLE SCORE Social Role Satisfaction Percentile 8 11/17/2023 PROMIS Global Health Scale Physical Health Percentile 4 Mental Health Percentile 26* Percentiles provide an indication of how the patient's score ranks in relation to the general population. Higher percentile rankings indicate better function/quality of life. 50th percentile is the average of the general population and indicates half of respondents had a worse score. Depression Screenin11/17/2023 PHQ-9 Score 14 11/17/2023 PHQ-9 Self-harm Question Question 9 Not at all PHQ-9 Self-Harm (Item 9) response options: 0 Not at all 1 Several days 2 More than half the days 3 Nearly every day PHQ-9 Levels: 0-4 No - mild depression 5-9 Mild depression 10-14 Moderate depression 15-19 Moderately severe depression 20-27 Severe depression ACTIVE PROBLEM LIST Personal History of Tobacco Use, Presenting Hazards to Health Leg Pain Tobacco Abuse Depression Discogenic Pain Ddd (Degenerative Disc Disease), Lumbar Chronic Back Pain PAST MEDICAL HISTORY Diagnosis Date Abdominal pain, right upper quadrant Dysthymic disorder Depression (non-psychotic) Low iron Lumbosacral radiculopathy at L4 02/2014 Migraine without aura Nonspecific elevation of levels of transaminase or lactic acid dehydrogenase (LDH) Scoliosis PAST SURGICAL HISTORY Procedure Laterality Date LAPS SURG CHOLECYSTECTOMY W/CHOLANGIOGRAPHY 12/15/2007 ? abnormal CBD LIGATE FALLOPIAN TUBE Bilateral 2015 PAST SURGICAL HISTORY OF dental extraction Social History Tobacco Use Smoking status: Every Day Packs/day: 0.50 Years: 20.00 Additional pack years: 0.00 Total pack years: 10.00 Types: Cigarettes Smokeless tobacco: Never Vaping Use Vaping Use: current everyday user Substances: Nicotine, Flavoring Devices: Disposable Substance Use Topics Alcohol use: Yes Comment: rare Drug use: Not Currently Types: Marijuana FAMILY HISTORY Problem Relation Age of Onset Alcohol/Drug Mother Alcohol/Drug Father Cancer Mother LIVER CANCER Cancer Father ESOPHAGEAL CANCER Cancer Maternal Grandmother LIVER CANCER Cancer Paternal Uncle LUNG CANCER Diabetes Paternal Grandmother (more content not included)... Normal [facility] MR Lumbar spine WO and W con trast Godfrey 08-31-2023 [facility] Basophil percentageOrdered B y: Tati Albarran on 07-13-2023 Hemoglobin (Bld) [Mass/Vol] 12.5 g/dL 12.0-15.0 [facility] WBC (Bld) [#/Vol] 7.7 10*3/uL 4.4-11.[address] [facility] Determination of erythrocyte mean corpuscular volume (MCV)Ordered By: Tati Albarran on 07-13-2023 MCV (RBC) [Entitic vol] 93.7 fL 81-99 [facility] Erythrocyte distribution wid th ratioOrdered By: Tati Albarran on 07-13-2023 Erythrocyte distribution width (RBC) [Ratio] 12.1 % 11.6-14.6 [facility] Erythrocyte distribution wid th standard deviationOrdered By: Tati Albarran on 07-13-2023 Erythrocyte distribution width (RBC) [Entitic vol] 41.4 fL 35.1-43.9 [facility] Hematocrit Auto (Bld) [Volum e fraction]Ordered By: Tati Avis on 07-13-2023 Hematocrit (Bld) [Volume fraction] 35.7 % 37-47 [facility] Laboratory - Hematology and Cell countsOrdered By: Tati Avis on 07-13-2023 MCH (RBC) [Entitic mass] 32.8 pg 27.0-32.0 [facility] MCHC (RBC) [Mass/Vol] 35.0 g/dL 32-36 [facility] Platelet mean volume (Bld) [Entitic vol] 9.5 fL 6.2-12.0 [facility] Platelets (Bld) [#/Vol] 332 10*3/uL 150-450 [facility] RBC Auto (Bld) [#/Vol]Ordere d By: Tati Avis on 07-13-2023 RBC (Bld) [#/Vol] 3.81 10*6/uL 4.2-5.4 [facility] XR LUMBAR MOTION 4V AP/LAT/ FLEX/EXTon 06-20-2023 [facility] XR Lumbar spine Views W flex ion and W extensionon 06-20-2023 IMPRESSION: Unremarkable lumbar spine X-ray. Contracting Analyst: TROY Transcribe Date/Time: Jun 20 2023 10:33A Dictated by : JAMES PALAFOX MD This examination was interpreted and the report reviewed and electronically signed by: JAMES PALAFOX MD on Jun 20 2023 10:35AM [facility] DIVISION OF RADIOLOGY * * *Final Report* * * DATE OF EXAM: Jun 20 2023 9:32AM WOX [id number] - XR LUMBAR 4V AP/LAT/ FLEX/EXT / PROCEDURE REASON: Lumbar radiculopathy * * * * Physician Interpretation * * * * EXAM TITLE: XR LUMBAR 4V AP/LAT/ FLEX/EXT EXAM DATE/TIME: 06/20/2023 9:32 AM COMPARISON: None. CLINICAL INDICATION/HISTORY: Radiculopathy. TECHNIQUE: AP, lateral, lateral extension, lateral flexion and cone down lateral views of the lumbar spine are presented. FINDINGS: There are five bcg-imf-agfmrhp lumbar vertebrae. No fracture or subluxations are noted. No change in alignment of the lumbar spine with lateral extension and lateral flexion. The disc spaces are well preserved. There is minimal osteophyte formation. [facility] * * *Final Report* * * DATE OF EXAM: Jun 20 2023 9:32AM WOX [id number] - XR LUMBAR 4V AP/LAT/ FLEX/EXT / PROCEDURE REASON: Lumbar radiculopathy * * * * Physician Interpretation * * * * EXAM TITLE: XR LUMBAR 4V AP/LAT/ FLEX/EXT EXAM DATE/TIME: 06/20/2023 9:32 AM COMPARISON: None. CLINICAL INDICATION/HISTORY: Radiculopathy. TECHNIQUE: AP, lateral, lateral extension, lateral flexion and cone down lateral views of the lumbar spine are presented. FINDINGS: There are five ejq-elh-sadndek lumbar vertebrae. No fracture or subluxations are noted. No change in alignment of the lumbar spine with lateral extension and lateral flexion. The disc spaces are well preserved. There is minimal osteophyte formation. IMPRESSION IMPRESSION: Unremarkable lumbar spine X-ray. Contracting Analyst: [facility] Transcribe Date/Time: Jun 20 2023 10:33A Dictated by : JAMES PALAFOX MD This examination was interpreted and the report reviewed and electronically signed by: JAMES PALAFOX MD on Jun 20 2023 10:35AM EST [facility] Radiology Study observation (narrative) [facility] XR Lumbar spine Views W flex ion and W extensionOrdered By: Ccf Provider on 06-20-2023 [facility] Cervical or vaginal specimen microscopic examination by liquid based cytology (reportOrdered By: Tati Albarran on 06-14-2023 Cytology report Cyto stain.thin prep Doc (Cvx/Vag) See comment [facility] Comment on above: HPV Genotype ReflexC riteria not met, HPV Genotype not performed. Detection in cervical specim en of any of human papilloma virus (HPV) 16, 18, 31, 33,Ordered By: Tati Albarran on 06-14-2023 HPV 16+18+31+33+35+39+45+51 +52+56+58+59+66+68 DNA Probe+sig amp Ql (Cvx) Negative [facility] Comment on above: This nucleic acid am plification test detects fourteen high-risk HPV types (16,18,31,33,35,39,45,51,52,56,58,59,66,68) without differentiation. Laboratory - CytologyOrdered By: Tati Albarran on 06-14-2023 [employer] Cyto stain Nom (Cvx/Vag) [ID] See comment [facility] Comment on above: Performed by Mal Maria, Customer Relations Assistant (ASCP) Laboratory - Miscellaneous t estsOrdered By: Tati Albarran on 06-14-2023 Service comment (Unsp spec) [Interp] See comment [facility] Comment on above: The pap smear is a s creening test designated to aid in thedetection of pre-malignant and malignant conditions of theuterine cervix. It is not a diagnostic procedure and shouldnot be used as the sole means of detecting cervical cancer. Both false-positive and false-negative reports do occur. Thin prep Papanicolaou smear with manual screeningOrdered By: Tati Albarran on 06-14-2023 Thin prep Papanicolaou smear with manual screening See comment [facility] Comment on above: NEGATIVE FOR INTRAEP ITHELIAL LESION AND MALIGNANCY This liquid based Th inPrep(R) pap test was screened with the use of an image guided system. XR Knee - left 4 Viewson IMPRESSION: No acute pathology. Contracting Analyst: TROY Transcribe Date/Time: Jan 27 2023 10:09A Dictated by : KATIE LEIVA MD This examination was interpreted and the report reviewed and electronically signed by: KATIE LEIVA MD on Jan 27 2023 10:12AM [facility] DIVISION OF RADIOLOGY * * *Final Report* * * DATE OF EXAM: Jan 24 2023 2:21PM WOX 5202 - XR KNEE 4V AP/PA BOTH+LAT/AMBER LT / PROCEDURE REASON: Acute pain of left knee * * * * Physician Interpretation * * * * EXAM(s): XR KNEE 4V AP/PA BOTH+LAT/AMBER LT EXAM DATE/TIME: 01/24/2023 2:21 PM HISTORY: 42 years old Clinical information: Acute pain of left knee Anterior left knee pain with bending x 1 month. No known injury TECHNIQUE: Images: XR KNEE 4V AP/PA BOTH+LAT/AMBER LT Comparison: None. RESULT: Findings: Left: Bone density appears well-preserved. No fractures or dislocations are seen. Right knee: Joint spaces are maintained, no acute fracture or dislocation. DIVISION OF [facility]OLOGY [facility] * * *Final Report* * * DATE OF EXAM: Jan 24 2023 2:21PM WOX 5202 - XR KNEE 4V AP/PA BOTH+LAT/AMBER LT / PROCEDURE REASON: Acute pain of left knee * * * * Physician Interpretation * * * * EXAM(s): XR KNEE 4V AP/PA BOTH+LAT/AMBER LT EXAM DATE/TIME: 01/24/2023 2:21 PM HISTORY: 42 years old Clinical information: Acute pain of left knee Anterior left knee pain with bending x 1 month. No known injury TECHNIQUE: Images: XR KNEE 4V AP/PA BOTH+LAT/AMBER LT Comparison: None. RESULT: Findings: Left: Bone density appears well-preserved. No fractures or dislocations are seen. Right knee: Joint spaces are maintained, no acute fracture or dislocation. IMPRESSION IMPRESSION: No acute pathology. Contracting Analyst: TROY Transcribe Date/Time: Jan 27 2023 10:09A Dictated by : KATIE LEIVA MD This examination was interpreted and the report reviewed and electronically signed by: KATIE LEIVA MD on Jan 27 2023 10:12AM EST [facility] No Panel Informationon 01-24 Radiology Study observation (narrative) [facility] XR Chest PA and Lateralon IMPRESSION: No acute radiographic abnormality. Contracting Analyst: PSCB Transcribe Date/Time: Jan 24 2023 2:45P Dictated by : JAMES PALAFOX MD This examination was interpreted and the report reviewed and electronically signed by: JAMES PALAFOX MD on Jan 24 2023 2:46PM [facility] DIVISION OF RADIOLOGY * * *Final Report* * * DATE OF EXAM: Jan 24 2023 2:21PM WOX 5291 - XR CHEST 2V FRONTAL/LAT / PROCEDURE REASON: Night sweats * * * * Physician Interpretation * * * * EXAMINATION: CHEST RADIOGRAPH (2 VIEW FRONTAL & LATERAL) CLINICAL HISTORY: Night sweats MQ: XC2_6 EXAM DATE/TIME: 01/24/2023 2:21 PM COMPARISON: No relevant prior studies available. RESULT: Lines, tubes, and devices: None. Lungs and pleura: No consolidation. No lung mass. No pleural effusion. No pneumothorax. Cardiomediastinal silhouette: Normal cardiomediastinal silhouette. Bones and soft tissues: Unremarkable. DIVISION OF RADIOLOGY Provider, [facility] - 01/24/2023 * * *Final Report* * * DATE OF EXAM: Jan 24 2023 2:21PM WOX 5291 - XR CHEST 2V FRONTAL/LAT / PROCEDURE REASON: Night sweats * * * * Physician Interpretation * * * * EXAMINATION: CHEST RADIOGRAPH (2 VIEW FRONTAL & LATERAL) CLINICAL HISTORY: Night sweats MQ: XC2_6 EXAM DATE/TIME: 01/24/2023 2:21 PM COMPARISON: No relevant prior studies available. RESULT: Lines, tubes, and devices: None. Lungs and pleura: No consolidation. No lung mass. No pleural effusion. No pneumothorax. Cardiomediastinal silhouette: Normal cardiomediastinal silhouette. Bones and soft tissues: Unremarkable. IMPRESSION IMPRESSION: No acute radiographic abnormality. Contracting Analyst: TROY Transcribe Date/Time: Jan 24 2023 2:45P Dictated by : JAMES PALAFOX MD This examination was interpreted and the report reviewed and electronically signed by: JAMES PALAFOX MD on Jan 24 2023 2:46PM EST [facility] XR Chest PA and LateralOrder ed By: [facility] Provider on 01-24-2023 [facility] Culture, urineOrdered By: Winnie Strickland on 10-27-2022 Bacteria identified Cx Nom (U) Positive [facility] Amorphous sediment detection in urine sediment by light microscopyOrdered By: Jeovany Strickland on 10-25-2022 Amorphous sediment LM Ql (Urine sed) 1+ [facility] Basophil percentageOrdered B y: Jeovany Strickland on 10-25-2022 Basophil percentage 0-5 SEEN /hpf 0-5 [facility] Bilirubin Test strip Ql (U)O rdered By: Jeovany Strickland on 10-25-2022 Bilirubin Ql (U) Negative Negative [facility] Ketones Test strip Ql (U)Ord ered By: Jeovany Strickland on 10-25-2022 Ketones Ql (U) Negative Negative [facility] LABORATORYOrdered By: Chayo Wilkerson on 10-25-2022 C. trachomatis DNA CHITO+probe Ql (Unsp spec) Negative (10/25/22 12:49 PM) Invalid Interpretation Code Negative Auto Viro/Sero SS C. trachomatis DNA CHITO+probe Ql (Unsp spec) C. trachomatis DNA not detected. Specimen is presumptive negative forC. trachomatis.A negative result does not preclude C. trachomatis infection becauseresults depend on adequate specimen collection, absence of inhibitors,and sufficient DNA to be detected. Invalid Interpretation Code See CT Interp N AH Auto Viro/Sero SS N. gonorrhoeae DNA CHITO+probe Ql (Unsp spec) Negative (10/25/22 12:49 PM) Invalid Interpretation Code Negative Auto Viro/Sero SS N. gonorrhoeae DNA CHITO+probe Ql (Unsp spec) N. gonorrhoeae DNA not detected. Specimen is presumptive negative forN. gonorrhoeae. A negative result does not preclude Neisseria gonorrhoeaeinfection because results depend on adequate specimen collection, absenceof inhibitors, and sufficient DNA to be detected. Invalid Interpretation Code See NG Interp N AH Auto Viro/Sero SS Laboratory - Specimen inform ationOrdered By: Chayo Wilkerson on 10-25-2022 Specimen source Nom (Unsp spec) Cervix (10/25/22 12:49 PM) Invalid Interpretation Code AH Auto Viro/Sero SS Mucus LM Ql (Urine sed)Order ed By: Jeovany Strickland on 10-25-2022 Mucus Ql (Urine sed) 0 SEEN /hpf [facility] Nitrite Test strip Ql (U)Ord ered By: Jeovany Strickland on 10-25-2022 Nitrite Ql (U) Negative Negative [facility] Protein Test strip Ql (U)Ord ered By: Jeovany Strickland on 10-25-2022 Protein Ql (U) Negative Negative [facility] Squamous epithelial cells de tection in urine sediment by light microscopyOrdered By: Jeovany Strickland on 10-25-2022 Epithelial cells.squamous LM Ql (Urine sed) 0-5 SEEN /hpf 5-10 [facility] Urine blood detectionOrdered By: Jeovany Strickland on 10-25-2022 RBC Ql (U) 25 /ul Negative [facility] RBC Ql (U) 0-5 SEEN /hpf 0-5 [facility] Urine clarityOrdered By: Daljit Strickland on 10-25-2022 Clarity (U) Sl. Cloudy Clear [facility] Urine color determinationOrd ered By: Jeovany Strickland on 10-25-2022 Color (U) Yellow Yellow [facility] Urine glucose detectionOrder ed By: Jeovany Strickland on 10-25-2022 Glucose Ql (U) Normal mg/dl Normal [facility] Urine leukocyte esterase det ection by dipstickOrdered By: Jeovany Strickland on 10-25-2022 Leukocyte esterase Test strip Ql (U) Negative Negative [facility] Urine pHOrdered By: Jeovany carpio on 10-25-2022 pH (U) 7.0 [pH] 5.0 - 8.0 [facility] Urine sediment bacteria coun t by microscopy (number/high power field)Ordered By: Jeovany Strickland on 10-25-2022 Bacteria LM.HPF (Urine sed) [#/Area] 0 /[HPF] None Seen [facility] Urine specific gravity measu rementOrdered By: Jeovany Strickland on 10-25-2022 Specific gravity (U) [Rel density] 1.020 1.002-1.030 [facility] Urobilinogen Auto test strip Ql (U)Ordered By: Jeovany Strickland on 10-25-2022 Urobilinogen Ql (U) Normal mg/dl Normal [facility] CTPCRon 10-15-2022 C. trachomatis Interp Abnormal See CT Interp N [facility] ([place]) Comment on above: Result Comment: DNA detection by non-culture technique (PCR). Sensitivity testing not available with this method. This organism causes a reportable disease Results have been reported to the [place] [facility] See CT Interp P Performed By: #### C TPCR, NGPCR1 #### [address] [address] C.trachomatis PCR Positive Abnormal Negative [facility] ([place] Comment on above: Result Comment: Mole cular (PCR) assay performed on the Shira Fidencio 4800 system. Performed By: #### C TPCR, NGPCR1 #### [address] [address] Chlam Source Cervix Normal [facility] ([place] Comment on above: Performed By: #### C TPCR, NGPCR1 #### [address] [address] [id number] 10-15-2022 GC PCR Source Cervix Normal [facility] ([place] Comment on above: Performed By: #### C TPCR, NGPCR1 #### [address] [address] N. gonorrhoeae (PCR) Negative Normal Negative [facility] ([place]) Comment on above: Result Comment: Ashleigh zeear (PCR) assay performed on the Shira Fidencio 4800 System. Performed By: #### C TPCR, NGPCR1 #### [place] [id number] N. gonorrhoeae Interp Normal See NG Interp N [facility] ([place] Comment on above: Result Comment: N. g onorrhoeae DNA not detected. Specimen is presumptive negative for N. gonorrhoeae. A negative result does not preclude Neisseria gonorrhoeae infection because results depend on adequate specimen collection, absence of inhibitors, and sufficient DNA to be detected. See NG Interp N Performed By: #### C TPCR, NGPCR1 #### [place] [address] RPRon 10-15-2022 Reagin Ab RPR Ql (S) Non-Reactive Normal Non-[place] ctiv e [facility] ([place] Comment on above: Result Comment: The RPR test is a non-treponemal assay useful as an aid in the diagnosis of primary and secondary syphilis. It converts to positive generally within 2 weeks after the appearance of a lesion. This test is also useful for monitoring response to antibiotic therapy. A positive RPR screening test will be followed by the FTA ABS test. False positive RPR tests may occur in 1) patients with underlying autoimmune disorders, 2) elderly patients, 3) , and 4) other conditions with abnormal serum globulins. Performed By: #### H CV1, HBSAG, RPR #### [facility] [address] [place] [id number] HBSAGon 10-14-2022 Hep B Surf Ag Non-Reactive Normal Non-Reactiv e [facility] [place] Comment on above: Performed By: #### H CV1, HBSAG, RPR #### [place] [id number] HCVon 10-14-2022 Hep C Ab Non-Reactive Normal Non-Reactiv e [facility] ([place] Comment on above: Performed By: #### H CV1, HBSAG, RPR #### [place] [id number] Hep C Ab Int Normal [facility] ([place] Comment on above: Result Comment: Nonr eactive: Samples with a value < 0.80 are considered nonreactive (negative) for antibodies to HCV. A negative test result does not exclude the possibility of exposure to or infection with HCV. HCV antibodies may be undetectable in some stages of the infection and in some clinical conditions. See Interp Performed By: #### H CV1, HBSAG, RPR #### [place] [address] HIVRPon 10-14-2022 HIV p24 Antigen Non-Reactive Normal Non-Reactiv [facility] ([place]) Comment on above: Result Comment: Dete ction of p24 may be inhibited by biotin in the sample, causing false negative results in acute infection. Therefore do not test samples from patients who are taking biotin. Performed By: #### H IVRP #### [facility] [address] [address] HIV P24 Int Non-Reactive Invalid Interpretation Code [facility] [place] Comment on above: Performed By: #### H IVRP #### [facility] [address] [address] Rapid HIV 1/2 Antibody Non-Reactive Normal Non-R eactiv e [facility] ([place] Comment on above: Performed By: #### H IVRP #### [facility] [address] [address] RHIV 1/2 Ab Int Non-Reactive Invalid Interpretation Code [facility] ([place] Comment on above: Performed By: #### H IV #### [address] [address] LABORATORYOrdered By: Mike Ovalles on 10-14-2022 HIV 1 p24 Ab Ql (S) Non-Reactive (10/14/22 9:42 AM) Invalid Interpretation Code Non-Reactiv e AO Rapid Testing SS HIV 1 p24 Ab Ql (S) Non-Reactive Invalid Interpretation Code AO Rapid Testing SS HIV 1+2 Ab IA Ql Non-Reactive Invalid Interpretation Code AO Rapid Testing SS HIV 1+2 Ab IA.rapid Ql (Unsp spec) Non-Reactive (10/14/22 9:42 AM) Invalid Interpretation Code Non-Reactiv e AO Rapid Testing SS LABORATORYOrdered By: [employer] on 10-14-2022 HBV surface Ag IA Ql Non-Reactive (10/14/22 9:41 AM) Invalid Interpretation Code Non-Reactiv e AH ADM SS LABORATORYOrdered By: Christy Wu on 10-14-2022 HCV Ab IA Ql Non-Reactive (10/14/22 9:41 AM) Invalid Interpretation Code Non-Reactiv e AH ADM SS HCV Ab IA Ql Nonreactive: Samples with a value < 0.80 are considered nonreactive (negative) for antibodies to HCV.A negative test result does not exclude the possibility of exposure to or infection with HCV. HCV antibodies may be undetectable in some stages of the infection and in some clinical conditions. Invalid Interpretation Code Chemistry S LABORATORYOrdered By: Chayo Wilkerson on 10-14-2022 C. trachomatis DNA CHITO+probe Ql (Unsp spec) Positive *ABN* (10/14/22 9:25 AM) Invalid Interpretation Code Negative Auto Viro/Sero SS C. trachomatis DNA CHITO+probe Ql (Unsp spec) DNA detection by non-culture technique (PCR). Sensitivity testing notavailable with this method.This organism causes a reportable diseaseResults have been reported to the [place] [facility] Invalid Interpretation Code See CT Interp N AH Auto Viro/Sero SS N. gonorrhoeae DNA CHITO+probe Ql (Unsp spec) Negative (10/14/22 9:25 AM) Invalid Interpretation Code Negative Auto Viro/Sero SS N. gonorrhoeae DNA CHITO+probe Ql (Unsp spec) N. gonorrhoeae DNA not detected. Specimen is presumptive negative forN. gonorrhoeae. A negative result does not preclude Neisseria gonorrhoeaeinfection because results depend on adequate specimen collection, absenceof inhibitors, and sufficient DNA to be detected. Invalid Interpretation Code See NG Interp N Auto Viro/Sero SS Laboratory - Specimen inform ationOrdered By: Chayo Wilkerson on 10-14-2022 Specimen source Nom (Unsp spec) Cervix (10/14/22 9:25 AM) Invalid Interpretation Code Auto Viro/Sero SS Basophil percentageOrdered B y: Dr. Tello on 09-29-2022 Basophil percentage 25-50 SEEN /hpf 0-5 [facility] Bilirubin Test strip Ql (U)O rdered By: Dr. Tello on 09-29-2022 Bilirubin Ql (U) Negative Negative [facility] Ketones Test strip Ql (U)Ord ered By: Dr. Tello on 09-29-2022 Ketones Ql (U) 5 mg/dl Negative [facility] Laboratory - Chemistry and C hemistry - challengeOrdered By: Dr. Tello on 09-29-2022 HCG ( test) Ql (U) Negative [facility] Comment on above: Very dilute urine sp ecimens, as indicated by a low specificgravity, may not contain marketing representative levels of hCG. If is still suspected, a first morning urinespecimen should be collected 48 hours later and tested. Mucus LM Ql (Urine sed)Order ed By: Dr. Tello on 09-29-2022 Mucus Ql (Urine sed) 1+ /hpf [facility] Nitrite Test strip Ql (U)Ord ered By: Dr. Tello on 09-29-2022 Nitrite Ql (U) Negative Negative [facility] Protein Test strip Ql (U)Ord ered By: Dr. Tello on 09-29-2022 Protein Ql (U) 30 mg/dl Negative [facility] Squamous epithelial cells de tection in urine sediment by light microscopyOrdered By: Dr. Tello on 09-29-2022 Epithelial cells.squamous LM Ql (Urine sed) 5-10 SEEN /hpf 5-10 [facility] Urine blood detectionOrdered By: Dr. Tello on 09-29-2022 RBC Ql (U) 250 /ul Negative [facility] RBC Ql (U) 25-50 SEEN /hpf 0-5 [facility] Urine clarityOrdered By: Dr. Tello on 09-29-2022 Clarity (U) Sl. Cloudy Clear [facility] Urine color determinationOrd ered By: Dr. Tello on 09-29-2022 Color (U) Yellow Yellow [facility] Urine glucose detectionOrder ed By: Dr. Tello on 09-29-2022 Glucose Ql (U) Normal mg/dl Normal [facility] Urine leukocyte esterase det ection by dipstickOrdered By: Dr. Tello on 09-29-2022 Leukocyte esterase Test strip Ql (U) 500 /ul Negative [facility] Urine pHOrdered By: Dr. Alicia baker on 09-29-2022 pH (U) 5.0 [pH] 5.0 - 8.0 [facility] Urine sediment bacteria coun t by microscopy (number/high power field)Ordered By: Dr. Tello on 09-29-2022 Bacteria LM.HPF (Urine sed) [#/Area] 1 /[HPF] None Seen [facility] Urine specific gravity measu rementOrdered By: Dr. Tello on 09-29-2022 Specific gravity (U) [Rel density] 1.025 1.002-1.030 [facility] Urobilinogen Auto test strip Ql (U)Ordered By: Dr. Tello on 09-29-2022 Urobilinogen Ql (U) Normal mg/dl Normal [facility] CBC W Auto Differential pane l (Bld)on 09-13-2022 Basophils (Bld) [#/Vol] 0.07 10*3/uL <0.11 k/uL [facility] Basophils/100 WBC (Bld) 0.6 % C [facility] Differential cell count method Nom (Bld) Auto [facility] Eosinophils (Bld) [#/Vol] 0.49 10*3/uL High <0.46 k/uL [facility] Eosinophils/100 WBC (Bld) 4.1 % [facility] Erythrocyte distribution width (RBC) [Ratio] 11.9 % 11.5 - 15.0 % [facility] Hematocrit (Bld) [Volume fraction] 39.0 % 36.0 - 46.0 % [facility] Hemoglobin (Bld) [Mass/Vol] 13.1 g/dL 11.5 - 15.5 g/dL [facility] Immature granulocytes (Bld) [#/Vol] 0.08 10*3/uL <0.10 k/uL [facility] Immature granulocytes/100 WBC (Bld) 0.7 % [facility] Lymphocytes (Bld) [#/Vol] 4.24 10*3/uL High 1.00 - 4.00 k/uL [facility] Lymphocytes/100 WBC (Bld) 35.2 % [facility] MCH (RBC) [Entitic mass] 32.1 pg 26.0 - 34.0 pg [facility] MCHC (RBC) [Mass/Vol] 33.6 g/dL 30.5 - 36.0 g/dL [facility] MCV (RBC) [Entitic vol] 95.6 fL 80.0 - 100.0 fL [facility] Monocytes (Bld) [#/Vol] 0.85 10*3/uL <0.87 k/uL [facility] Monocytes/100 WBC (Bld) 7.1 % [facility] Neutrophils (Bld) [#/Vol] 6.31 10*3/uL 1.45 - 7.50 k/uL [facility] Neutrophils/100 WBC (Bld) 52.3 % [facility] Nucleated RBC (Bld) [#/Vol] <0.01 k/uL [facility] Nucleated RBC/100 WBC (Bld) [Ratio] 0.0 /100 WBC [facility] Platelet mean volume (Bld) [Entitic vol] 10.5 fL 9.0 - 12.7 fL [facility] Platelets (Bld) [#/Vol] 317 10*3/uL 150 - 400 k/uL [facility] RBC (Bld) [#/Vol] 4.08 10*6/uL 3.90 - 5.2 0 m/uL [facility] WBC (Bld) [#/Vol] 12.04 10*3/uL High 3.70 - 11.00 k/uL [facility] Hearing Stenographer Cytology Reporton 2021 Hearing Stenographer Cytology Report . Pathology Reports Accession: Collected Date/Time: Received Date/Time: Pathologist: [id number] 03/29/2022 11:56 EST 03/29/2022 18:00 EST ALANA GR MD Hearing Stenographer Cytology Report SPECIMEN: Specimen Description: Liquid Prep w/ HPV Specimen: Cervical/Endocervical Screening or Diagnostic: Screening RELEVANT HISTORY: LMP: 03/2022 [id number] SPECIMEN ADEQUACY: SATISFACTORY FOR EVALUATION Endocervical/Transforma tional zone component present INTERPRETATION/RESULTS: NEGATIVE FOR INTRAEPITHELIAL LESION OR MALIGNANCY ORGANISMS: Shift in liz consistent with bacterial vaginosis Hyperkeratosis SUGGESTIONS/EDUCATIONAL NOTES: This case has been reviewed for 10% QA rescreen HIGH RISK HPV TESTING: Event Code Result HPV Interp See Interp HPVO * HPV Interp Text: High Risk HPV Typing is Positive : High Risk HPV Types detected, other than HPV 16 or HPV 18. Specimen is positive for the DNA of any one of, or combination of, the following high risk HPV types: 31, 33, 35, 39, 45, 51, 52, 56, 58, 59, 66, 68. HPV types 16 and 18 DNA were undetectable or below the pre-set threshold. The fidencio High-Risk HPV DNA Test is not intended for use as a screening device for Pap normal women under age 30 and is not intended to substitute for regular Pap screening. The fidencio High-Risk HPV DNA Test is designed to augment existing methods for the detection of cervical disease and should be used in conjunction with clinical information derived from other diagnostic and screening tests, physical examinations and full medical history in accordance with appropriate patient management procedures. NOTE: A negative result does not preclude the presence of HPV infection because results depend on adequate specimen collection, absence of inhibitors and sufficient DNA to be detected. As of: 04/05/22 12:34 EST Pathology Reports Accession: Collected Date/Time: Received Date/Time: Pathologist: [id number] 03/29/2022 11:56 EST 03/29/2022 18:00 EST ALANA GR MD COMMENT: This Pap Test was successfully processed and evaluated with the assistance of the [employer] ThinPrep Test Imaging System. Electronically Signed by Pathology report verified by [facility] Screened by: MARIA LUISA NC Electronically signed by ALANA GR Sign-Out Date: 04/05/2022 14:57 Performing Lab: [facility], [address] [place] [address] Pathology Dept Disclaimer The Pap test is a screening test for cervical cancer. As evidenced by published data, it is subject to both inherent false negative and false positive results. Your patient's results should be interpreted in context with pertinent clinical history including gynecological examination. Normal [facility] ([place]) HPVon 04-02-2022 HPV Interp Abnormal See Interp HPVN [facility]) Comment on above: Order Comment: Order placed by AP_HPV_ORDER rule from [id number] Result Comment: High Risk HPV Typing is Positive: High Risk HPV Types detected, other than HPV 16 or HPV 18. Specimen is positive for the DNA of any one of, or combination of, the following high risk HPV types: 31, 33, 35, 39, 45, 51, 52, 56, 58, 59, 66, 68. HPV types 16 and 18 DNA were undetectable or below the pre-set threshold. The fidencio High-Risk HPV DNA Test is not intended for use as a screening device for Pap normal women under age 30 and is not intended to substitute for regular Pap screening. The fidencio High-Risk HPV DNA Test is designed to augment existing methods for the detection of cervical disease and should be used in conjunction with clinical information derived from other diagnostic and screening tests, physical examinations and full medical history in accordance with appropriate patient management procedures. NOTE: A negative result does not preclude the presence of HPV infection because results depend on adequate specimen collection, absence of inhibitors and sufficient DNA to be detected. See Interp HPVO Performed By: #### H PV #### [address] [address] HPV Source Cervix Normal [facility] ([place]) Comment on above: Order Comment: Order placed by AP_HPV_ORDER rule from [id number] Performed By: #### H PV #### [address] [address] Vital Signs Date Time Vital Sign Value Performing Clinician Facility 10-02-2024 15:24-0400 Body height 162.56 cm Nguyen MARTINES Work Phone: [facility] 10-02-2024 15:24-0400 Body mass index (BMI) [Ratio] 30.7 kg/m2 Nguyen MARTINES Work Phone: [facility] 10-02-2024 15:24-0400 Body weight 81.36 kg Nguyen Kurtz [employer]I TRUCK DRIVER-C Work Phone: [facility] 10-02-2024 15:24-0400 Diastolic blood pressure 77 mm[Hg] Nguyen Kurtz [employer]I TRUCK DRIVER-C Work Phone: [facility] 10-02-2024 15:24-0400 Systolic blood pressure 109 mm[Hg] Nguyen Kurtz [employer]I TRUCK DRIVER-C Work Phone: [facility] 09-18-2024 08:54-0400 Body mass index (BMI) [Ratio] 30.55 kg/m2 Nguyen Kurtz NDT INSPECTOR.CLERICAL RECEPTIONIST Work Phone: [facility] 09-18-2024 08:54-0400 Body weight 80.74 kg Nguyen Kurtz APRN.CLERICAL RECEPTIONIST Work Phone: [facility] 09-18-2024 08:54-0400 Diastolic blood pressure 68 mm[Hg] Nguyen Kurtz NDT INSPECTOR.CLERICAL RECEPTIONIST Work Phone: [facility] 09-18-2024 08:54-0400 Heart rate 90 /min Nguyen Kurtz APRN.CLERICAL RECEPTIONIST Work Phone: [facility] 09-18-2024 08:54-0400 Systolic blood pressure 104 mm[Hg] Nguyen Kurtz NDT INSPECTOR.CLERICAL RECEPTIONIST Work Phone: [facility] 09-14-2024 08:53-0400 Body mass index (BMI) [Ratio] 30.65 kg/m2 Nguyen Kurtz NDT INSPECTOR.CLERICAL RECEPTIONIST Work Phone: [facility] 09-14-2024 08:53-0400 Body weight 81 kg Nguyen Kurtz APRN.CLERICAL RECEPTIONIST Work Phone: [facility] 09-14-2024 08:53-0400 Diastolic blood pressure 74 mm[Hg] Nguyen Kurtz NDT INSPECTOR.CLERICAL RECEPTIONIST Work Phone: [facility] 09-14-2024 08:53-0400 Heart rate 88 /min Nguyen Kurtz NDT INSPECTOR.CLERICAL RECEPTIONIST Work Phone: [facility] 09-14-2024 08:53-0400 Systolic blood pressure 107 mm[Hg] Nguyen Kurtz NDT INSPECTOR.CLERICAL RECEPTIONIST Work Phone: [facility] 08-10-2024 12:57-0400 Body mass index (BMI) [Ratio] 30.65 kg/m2 Nguyen Kurtz NDT INSPECTOR.CLERICAL RECEPTIONIST Work Phone: [facility] 08-10-2024 12:57-0400 Body weight 81 kg Nguyen Kurtz NDT INSPECTOR.CLERICAL RECEPTIONIST Work Phone: [facility] 08-10-2024 12:57-0400 Diastolic blood pressure 76 mm[Hg] Nguyen Kurtz NDT INSPECTOR.CLERICAL RECEPTIONIST Work Phone: [facility] 08-10-2024 12:57-0400 Heart rate 86 /min Nguyen Kurtz NDT INSPECTOR.CLERICAL RECEPTIONIST Work Phone: [facility] 08-10-2024 12:57-0400 Systolic blood pressure 113 mm[Hg] Nguyen Kurtz NDT INSPECTOR.CLERICAL RECEPTIONIST Work Phone: [facility] 04-30-2024 07:37-0500 Body mass index (BMI) [Ratio] 30.08 kg/m2 Doug Vernon NDT INSPECTOR.CLERICAL RECEPTIONIST Work Phone: [facility] 04-30-2024 07:37-0500 Body temperature 98.01 [degF] Doug Vernon NDT INSPECTOR.CLERICAL RECEPTIONIST Work Phone: [facility] 04-30-2024 07:37-0500 Body weight 79.5 kg Doug Vernon NDT INSPECTOR.CLERICAL RECEPTIONIST Work Phone: [facility] 04-30-2024 07:37-0500 Diastolic blood pressure 72 mm[Hg] Doug Vernon NDT INSPECTOR.CLERICAL RECEPTIONIST Work Phone: [facility] 04-30-2024 07:37-0500 Heart rate 98 /min Doug Vernon NDT INSPECTOR.CLERICAL RECEPTIONIST Work Phone: [facility] 04-30-2024 07:37-0500 Respiratory rate 16 /min Doug Vernon APRN.CLERICAL RECEPTIONIST Work Phone: [facility] 04-30-2024 07:37-0500 SaO2% (BldA) [Mass fraction] 98 % Doug Vernon APRN.CLERICAL RECEPTIONIST Work Phone: [facility] 04-30-2024 07:37-0500 Systolic blood pressure 110 mm[Hg] Doug Vernon APRN.CLERICAL RECEPTIONIST Work Phone: [facility] 03-20-2024 13:15-0500 Body height 162.6 cm Justin Whiteside MD Work Phone: [facility] 03-20-2024 13:15-0500 Body mass index (BMI) [Ratio] 28.49 kg/m2 Justin Whiteside MD Work Phone: [facility] 03-20-2024 13:15-0500 Body weight 75.3 kg Justin Whiteside MD Work Phone: [facility] 03-20-2024 13:15-0500 Diastolic blood pressure 71 mm[Hg] Justin Whiteside MD Work Phone: [facility] 03-20-2024 13:15-0500 Heart rate 91 /min Justin Whiteside MD Work Phone: [facility] 03-20-2024 13:15-0500 Systolic blood pressure 119 mm[Hg] Justin Whiteside MD Work Phone: [facility] 01-19-2024 08:47-0400 Body mass index (BMI) [Ratio] 28.49 kg/m2 Nguyen Kurtz APRN.CLERICAL RECEPTIONIST Work Phone: [facility] 01-19-2024 08:47-0400 Body weight 75.3 kg Nguyen Kurtz APRN.CNP Work Phone: [facility] 01-19-2024 08:47-0400 Diastolic blood pressure 67 mm[Hg] Nguyen Kurtz APRN.CLERICAL RECEPTIONIST Work Phone: [facility] 01-19-2024 08:47-0400 Heart rate 94 /min Nguyen Kurtz NDT INSPECTOR.CLERICAL RECEPTIONIST Work Phone: [facility] 01-19-2024 08:47-0400 Respiratory rate 14 /min Nguyen Kurtz NDT INSPECTOR.CLERICAL RECEPTIONIST Work Phone: [facility] 01-19-2024 08:47-0400 SaO2% (BldA) [Mass fraction] 95 % Nguyen Kurtz NDT INSPECTOR.CLERICAL RECEPTIONIST Work Phone: [facility] 01-19-2024 08:47-0400 Systolic blood pressure 104 mm[Hg] Nguyen Kurtz NDT INSPECTOR.CLERICAL RECEPTIONIST Work Phone: [facility] 11-18-2023 10:16-0400 Body height 162.6 cm George Hollis DO Work Phone: [facility] 11-18-2023 10:16-0400 Body mass index (BMI) [Ratio] 28.84 kg/m2 George Hollis DO Work Phone: [facility] 11-18-2023 10:16-0400 Body weight 76.2 kg George Hollis DO Work Phone: [facility] 11-18-2023 10:16-0400 Respiratory rate 12 /min George Hollis DO Work Phone: [facility] 07-29-2023 13:28-0400 Body weight 76.2 kg Nguyen Kurtz NDT INSPECTOR.CLERICAL RECEPTIONIST Work Phone: [facility] 07-29-2023 13:28-0400 Diastolic blood pressure 68 mm[Hg] Nguyen Kurtz NDT INSPECTOR.CLERICAL RECEPTIONIST Work Phone: [facility] 07-29-2023 13:28-0400 Heart rate 82 /min Nguyen Kurtz APRN.CLERICAL RECEPTIONIST Work Phone: [facility] 07-29-2023 13:28-0400 Respiratory rate 16 /min Nguyen Kurtz NDT INSPECTOR.CLERICAL RECEPTIONIST Work Phone: [facility] 07-29-2023 13:28-0400 Systolic blood pressure 102 mm[Hg] Nguyen Kurtz NDT INSPECTOR.CLERICAL RECEPTIONIST Work Phone: [facility] 07-13-2023 16:09-0500 Body height 162.56 cm [employer]I TRUCK DRIVER-C Nguyen Razooble Work Phone: [facility] 07-13-2023 16:08-0500 Body mass index (BMI) [Ratio] 28.5 kg/m2 [employer] TRUCK [employer]IVER-C Nguyen Razooble Work Phone: 3(415)484-676420 [place] [address] 07-13-2023 16:08-0500 Body weight 75.52 kg [employer] TRUCK DRIVER-C Nguyen Razooble Work Phone: 7(542)047-254120 [place] [address] 07-13-2023 16:08-0500 Diastolic blood pressure 72 mm[Hg] [employer]I TRUCK DRIVER-C Nguyen Razooble Work Phone: 9(616)704-715331 [place] [address] 07-13-2023 16:08-0500 Systolic blood pressure 121 mm[Hg] [employer] TRUCK DRIVER-C Nguyen Razooble Work Phone: 8(455)630-126131 [place] [address] 06-27-2023 15:11-0500 Body mass index (BMI) [Ratio] 28.9 kg/m2 [employer] TRUCK DRIVER-C Nguyen Dungoble Work Phone: 3(584)579-736031 [place] [address] 06-27-2023 15:11-0500 Body weight 76.37 kg [employer] TRUCK DRIVER-C Nguyen Knoble Work Phone: 2(567)006-526220 [place] [address] 06-27-2023 15:11-0500 Diastolic blood pressure 70 mm[Hg] [employer]I TRUCK DRIVER-C Nguyen Knoble Work Phone: 1(317)485-862720 [place] [address] 06-27-2023 15:11-0500 Systolic blood pressure 108 mm[Hg] [employer]I TRUCK DRIVER-C Nguyen Dungoble Work Phone: 8(586)912-443920 [place] [address] 06-20-2023 08:55-0500 Body weight 76.66 kg Nguyen Kurtz NDT INSPECTOR.CLERICAL RECEPTIONIST Work Phone: [facility] 06-20-2023 08:55-0500 Diastolic blood pressure 70 mm[Hg] Nguyen Rika NDT INSPECTOR.CLERICAL RECEPTIONIST Work Phone: [facility] 06-20-2023 08:55-0500 Heart rate 89 /min Nguyen Kurtz NDT INSPECTOR.CLERICAL RECEPTIONIST Work Phone: [facility] 06-20-2023 08:55-0500 Respiratory rate 16 /min Nguyen Kurtz NDT INSPECTOR.CLERICAL RECEPTIONIST Work Phone: [facility] 06-20-2023 08:55-0500 Systolic blood pressure 104 mm[Hg] Nguyen Kurtz NDT INSPECTOR.CLERICAL RECEPTIONIST Work Phone: [facility] 06-14-2023 09:00-0500 Body height 162.[address] Tati Alvarez Work Phone: [facility] 06-14-2023 09:00-0500 Body mass index (BMI) [Ratio] 29 kg/m2 Dr. Tati Alvarez Work Phone: [facility] 06-14-2023 09:00-0500 Body weight 76.[address] Tati Alvarez Work Phone: [facility] 06-14-2023 09:00-0500 Diastolic blood pressure 69 mm[Hg] Dr. Tati Alvarez Work Phone: [facility] 06-14-2023 09:00-0500 Systolic blood pressure 100 mm[Hg] Dr. Tati Alvarez Work Phone: [facility] 10-25-2022 14:53-0400 Body height 162.[address] Bernie Harrell Work Phone: [facility] 10-25-2022 14:53-0400 Body mass index (BMI) [Ratio] 27.6 kg/m2 Dr. Bernie Harrell Work Phone: [facility] 10-25-2022 14:53-0400 Body temperature 98.2 [degF] Dr. Bernie Harrell Work Phone: [facility] 10-25-2022 14:53-0400 Body weight 73.[address] Bernie Harrell Work Phone: [facility] 10-25-2022 14:53-0400 Diastolic blood pressure 72 mm[Hg] Dr. Bernie Harrell Work Phone: [facility] 10-25-2022 14:53-0400 Heart rate 76 /min Dr. Bernie Harrell Work Phone: [facility] 10-25-2022 14:53-0400 Respiratory rate 17 /min Dr. Bernie Harrell Work Phone: [facility] 10-25-2022 14:53-0400 SaO2% (BldA) [Mass fraction] 98 % Dr. Bernie Harrell Work Phone: [facility] 10-25-2022 14:53-0400 Systolic blood pressure 124 mm[Hg] Dr. Bernie Harrell Work Phone: [facility] 09-29-2022 13:15-0400 Respiratory rate 18 /min Dr. Bernie Harrell Work Phone: [facility] 09-29-2022 09:23-0400 Body mass index (BMI) [Ratio] 27 kg/m2 Dr. Bernie Harrell Work Phone: [facility] 09-29-2022 09:23-0400 Body temperature 97.6 [degF] Dr. Bernie Harrell Work Phone: [facility] 09-29-2022 09:23-0400 Body weight 73.[address] Bernie Harrell Work Phone: [facility] 09-29-2022 09:23-0400 Diastolic blood pressure 73 mm[Hg] Dr. Bernie Harrell Work Phone: [facility] 09-29-2022 09:23-0400 Heart rate 95 /min Dr. Bernie Harrell Work Phone: [facility] 09-29-2022 09:23-0400 SaO2% (BldA) [Mass fraction] 100 % Dr. Bernie Harrell Work Phone: [facility] 09-29-2022 09:23-0400 Systolic blood pressure 141 mm[Hg] Dr. Bernie Harrell Work Phone: [facility] 09-16-2022 14:30-0400 Body mass index (BMI) [Ratio] 26.6 kg/m2 Dr. Bernie Harrell Work Phone: [facility] 09-16-2022 14:30-0400 Body weight 72.[address] Bernie Harrell Work Phone: [facility] 09-13-2022 15:48-0400 Body height 162.6 cm Nguyen Kurtz NDT INSPECTOR.CLERICAL RECEPTIONIST Work Phone: [facility] 09-13-2022 15:48-0400 Body weight 73.48 kg Nguyen Rika NDT INSPECTOR.CLERICAL RECEPTIONIST Work Phone: [facility] 09-13-2022 15:48-0400 Diastolic blood pressure 66 mm[Hg] Nguyen Kurtz NDT INSPECTOR.CLERICAL RECEPTIONIST Work Phone: [facility] 09-13-2022 15:48-0400 Heart rate 84 /min Nguyen Rika NDT INSPECTOR.CLERICAL RECEPTIONIST Work Phone: [facility] 09-13-2022 15:48-0400 Respiratory rate 14 /min Nguyen Kurtz NDT INSPECTOR.CLERICAL RECEPTIONIST Work Phone: [facility] 09-13-2022 15:48-0400 Systolic blood pressure 108 mm[Hg] Nguyen Rika NDT INSPECTOR.CLERICAL RECEPTIONIST Work Phone: [facility] 05-02-2022 14:58-0500 Body height 165.1 cm [facility] Work Phone: 05-02-2022 14:58-0500 Body mass index (BMI) [Ratio] 25.1 kg/m2 [facility] Work Phone: 05-02-2022 14:58-0500 Body temperature 97.6 [degF] [facility] Work Phone: 05-02-2022 14:58-0500 Body weight 68.49 kg [facility] Work Phone: 05-02-2022 14:58-0500 Diastolic blood pressure 67 mm[Hg] [facility] Work Phone: 05-02-2022 14:58-0500 Heart rate 80 /min [facility] Work Phone: 05-02-2022 14:58-0500 Respiratory rate 15 /min [facility] Work Phone: 05-02-2022 14:58-0500 SaO2% (BldA) [Mass fraction] 98 % [facility] Work Phone: 05-02-2022 14:58-0500 Systolic blood pressure 109 mm[Hg] [facility] Work Phone: Encounters Encounter Date Encounter Type Care Provider Facility Start: 10-02-2024 End: 10-02-[address] Tati Alvarez DO [facility] Work Phone: Start: 10-02-2024 End: 10-02-2024 ambulatory Nguyen Kurtz SEMI TRUCK DRIVER-C Work Phone: [facility] Work Phone: Start: 09-18-2024 End: 09-18-2024 Patient encounter procedure Nguyen Kurtz APRN.CLERICAL RECEPTIONIST Work Phone: [facility] Comment on above: Generalized skin cys ts (Primary Dx) Start: 09-18-2024 End: 09-18-2024 ambulatory NGUYEN KURTZ Facility:[facility] Start: 09-14-2024 End: 09-14-2024 Patient encounter procedure Nguyen Kurtz APRN.CLERICAL RECEPTIONIST Work Phone: [facility] Comment on above: Cellulitis of skin ( Primary Dx) Start: 09-14-2024 End: 09-14-2024 ambulatory NGUYEN KURTZ Facility:[facility] Start: 08-28-2024 End: 08-28-2024 Follow-up encounter Nguyen Kurtz APRN.CLERICAL RECEPTIONIST Work Phone: [facility] Start: 08-10-2024 End: 08-10-2024 ambulatory NGUYEN KURTZ Facility:[facility] Start: 08-10-2024 End: 08-10-2024 Patient encounter procedure Nguyen Kurtz APRN.CLERICAL RECEPTIONIST Work Phone: [facility] Comment on above: Acute pulmonary embo lism, unspecified pulmonary embolism type, unspecified whether acute cor pulmonale present (HCC) (Primary Dx); Lupus anticoagulant positive; Encounter for screening mammogram for breast cancer; Special screening examination for viral disease Start: 05-14-2024 Encounter for genera l adult medical examination without abnormal findings Jovanalejandra Hidalgo [facility] Start: 04-30-2024 End: 04-30-2024 ambulatory NGUYEN KURTZ Facility:[facility] Start: 04-30-2024 End: 04-30-2024 Office outpatient visit 25 minutes Doug Vernon APRN.CLERICAL RECEPTIONIST Work Phone: [facility] Comment on above: Rash (Primary Dx) Start: 03-28-2024 ambulatory Nguyen Kurtz Facilit y:[facility] Start: 03-28-2024 End: 03-28-2024 ambulatory Nguyen Kurtz Facility:[facility] Start: 03-23-2024 End: 03-26-2024 ambulatory Justin Whiteside MD Work Phone: Rheumatology Comment on above: Results Start: 03-23-2024 End: 03-26-2024 E-mail encounter from caregiver Justin Whiteside MD Work Phone: Rheumatology Start: 03-20-2024 End: 03-20-2024 ambulatory NGUYEN KURTZ Facility:[facility] Start: 03-20-2024 End: 03-20-2024 Patient encounter procedure Justin Whiteside MD Work Phone: Rheumatology Comment on above: Lupus anticoagulant positive (Primary Dx); Acute pulmonary embolism, unspecified pulmonary embolism type, unspecified whether acute cor pulmonale present (HCC) Start: 03-19-2024 End: 03-19-2024 ambulatory Nguyen Kurtz Facility:[facility] Start: 03-08-2024 ambulatory [facility] [place] [place] Start: 02-23-2024 End: 02-23-2024 ambulatory Nguyen Kurtz Facility:[facility] Start: 01-31-2024 End: 01-31-2024 Emergency department patient visit Chato Arndt Facility:[facility] Start: 01-31-2024 End: 01-31-2024 ambulatory Nguyen Kurtz NDT INSPECTOR.CLERICAL RECEPTIONIST Work Phone: [facility] Comment on above: Chest Pain Start: 01-27-2024 End: 01-27-2024 Refill Madeline Triplett PA-C Work Phone: [facility] Comment on above: Refill Request Start: 01-26-2024 End: 01-27-2024 Telephone encounter Nguyen Kurtz APRN.CLERICAL RECEPTIONIST Work Phone: [facility] Comment on above: Results Start: 01-23-2024 End: 01-23-2024 ambulatory [facility] [place] [place] Start: 01-19-2024 ambulatory Nguyen Kurtz Facilit y:[facility] Start: 01-19-2024 End: 01-19-2024 Patient encounter procedure Nguyen Kurtz NDT INSPECTOR.CLERICAL RECEPTIONIST Work Phone: [facility] Comment on above: Incontinence of fece s, unspecified fecal incontinence type (Primary Dx); Acute pulmonary embolism, unspecified pulmonary embolism type, unspecified whether acute cor pulmonale present (HCC) Start: 01-19-2024 End: 01-19-2024 ambulatory NGUYEN KURTZ Facility:[facility] Start: 01-19-2024 End: 01-19-2024 ambulatory Nguyen Kurtz Facility:[facility] Start: 01-17-2024 End: 01-17-2024 Emergency department patient visit Francisco Javier Fontenotashley Facility:[facility] Start: 12-27-2023 Telephone encounter George hand DO Work Phone: [facility] Start: 12-22-2023 End: 12-22-2023 ambulatory NGUYEN KURTZ Facility:[facility] Start: 12-22-2023 End: 12-22-2023 Subsequent hospital visit by physician [facility] (I-Stat/1.5t) Work Phone: Radiology Comment on above: 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] Start: 11-18-2023 End: 11-18-2023 ambulatory NGUYEN KURTZ Facility:[facility] Start: 11-18-2023 End: 11-18-2023 Patient encounter procedure George Clay Telma DO Work Phone: [facility] Comment on above: Hemisensory deficit (Primary Dx); Hyperreflexia; Balance disorder; Spinal stenosis of cervical region; Midline thoracic back pain, unspecified chronicity Start: 10-19-2023 ambulatory Nguyen brizuela APRN.CLERICAL RECEPTIONIST Work Phone: Internal Medicine [place] [address] Start: 09-01-2023 Telephone encounter Nguyen corley APRN.CLERICAL RECEPTIONIST Work Phone: [facility] Comment on above: Results Start: 08-31-2023 End: 08-31-2023 Subsequent hospital visit by physician [facility] (I-Stat/1.5t) Work Phone: Radiology Comment on above: Chronic low back cheryl n without sciatica, unspecified back pain laterality [M54.50, G89.29] Start: 08-08-2023 ambulatory Nguyen brizuela APRN.CLERICAL RECEPTIONIST Work Phone: [facility] Comment on above: Chest Pain Start: 07-29-2023 End: 07-29-2023 Patient encounter procedure Nguyen Kurtz APRN.CLERICAL RECEPTIONIST Work Phone: [facility] Comment on above: Chronic low back cheryl n without sciatica, unspecified back pain laterality (Primary Dx); Radiculopathy of lumbar region; Urinary and bowel incontinence Start: 07-26-2023 End: 07-26-2023 Admission to same day surgery center CONRAD Kurtz [facility] Start: 07-26-2023 End: 07-26-2023 ambulatory CONRAD Kurtz Work Phone: [facility] Work Phone: Start: 07-15-2023 Telephone encounter Nguyen corley APRN.CLERICAL RECEPTIONIST Work Phone: [facility] Comment on above: Refill Request Start: 07-13-2023 End: 07-13-2023 ambulatory SEMI TRUCK DRIVER-Mac Kurtz Work Phone: [facility] Work Phone: Start: 07-13-2023 End: 07-13-2023 Patient encounter procedure SEMI TRUCK DRIVER-Mac Kurtz Work Phone: [facility] Specimen Work Phone: Start: 07-13-2023 End: 07-13-2023 Patient encounter procedure SEMI TRUCK DRIVER-Mac Kurtz Work Phone: [facility] Work Phone: Start: 06-27-2023 End: 06-27-2023 Patient encounter procedure SEMI TRUCK DRIVER-Mac Kurtz Work Phone: [facility] Work Phone: Start: 06-22-2023 End: 06-22-[address] Tati Alvarez Work Phone: [facility] Work Phone: Start: 06-22-2023 End: 06-22-[address] Tati Alvarez Work Phone: [facility] Work Phone: Start: 06-20-2023 End: 06-20-2023 Subsequent hospital visit by physician [facility] Work Phone: Radiology Comment on above: Lumbar radiculopathy [M54.16] Start: 06-20-2023 End: 06-20-2023 Patient encounter procedure Nguyen Kurtz APRN.CLERICAL RECEPTIONIST Work Phone: [facility] Comment on above: Lumbar radiculopathy (Primary Dx); Chronic midline low back pain without sciatica; Encounter for smoking cessation counseling Start: 06-14-2023 End: 06-14-[address] Tati Alvarez Work Phone: [facility] Work Phone: Start: 06-14-2023 End: 06-14-[address] [facility] Work [facility]: Start: 06-14-2023 End: 06-14-[address] Tati Alvarez Work Phone: [facility] Work Phone: Start: 03-07-2023 Refill Nguyen brizuela APRN.CLERICAL RECEPTIONIST Work Phone: [facility] Comment on above: Refill Request Start: 01-24-2023 End: 01-24-2023 Subsequent hospital visit by physician [facility] Work Phone: Radiology Comment on above: Night sweats [R61] Start: 11-03-2022 Refill Nguyen brizuela APRN.CLERICAL RECEPTIONIST Work Phone: [facility] Comment on above: Refill Request Start: 10-25-2022 End: 10-25-[address] Bernie Harrell Work Phone: [facility] Work Phone: Start: 10-25-2022 End: 10-25-[address] [facility] Har[facility] Start: 10-25-2022 End: 10-25-[address] Bernie Harrell Work Phone: [facility] Start: 10-25-2022 End: 10-29-2022 Outreach Lab CHRISTOPHER VARGAS MD [facility] Start: 10-14-2022 End: 10-19-2022 ambulatory CHRISTOPHER VARGAS MD Facility:[facility] Start: 10-14-2022 End: 10-18-2022 Outreach Lab CHRISTOPHER VARGAS MD [facility] Start: 10-14-2022 End: 10-15-2022 ambulatory CHRISTOPHER VARGAS MD Facility:[facility] Start: 10-14-2022 End: 10-14-2022 Patient encounter procedure CHRISTOPHER VARGAS MD [facility] Start: 09-29-2022 End: 09-29-2022 Emergency department patient visit Dr. Bernie Harrell Work Phone: [facility] Start: 09-16-2022 End: 09-16-[address] Bernie Harrell Work Phone: [facility] Start: 09-16-2022 Telephone encounter Nguyen corley APRN.CLERICAL RECEPTIONIST Work Phone: [facility] Comment on above: Results Start: 09-15-2022 Documentation procedure Mammog morris Coordinator [facility] Start: 09-15-2022 Letter encounter Mammography Coordinator [facility] Department Start: 09-15-2022 Telephone encounter Madeline ferguson PA-C Work Phone: [facility] Comment on above: Results Start: 09-13-2022 End: 09-13-2022 Patient encounter procedure Nguyen Kurtz APRN.CLERICAL RECEPTIONIST Work Phone: [facility] Comment on above: Screening for diabet es mellitus (Primary Dx); Encounter for lipid screening for cardiovascular disease; Encounter for wellness examination in adult; Lumbar radiculopathy; Other depression; Encounter for screening mammogram for malignant neoplasm of breast Start: 09-13-2022 End: 09-13-2022 Patient encounter status Nguyen Kurtz APRN.CLERICAL RECEPTIONIST Work Phone: [facility] [place] Start: 05-02-2022 End: 05-02-2022 Emergency department patient visit [facility] Start: 03-29-2022 End: 04-03-2022 ambulatory CHRISTOPHER VARGAS MD Facility:[facility] Start: 03-29-2022 End: 04-03-2022 Encounter for gynecological examination (general) (routine) without abnormal findings CHRISTOPHER VARGAS MD Facility:[facility] Procedures Date Procedure Procedure Detail Performing Clinician Start: 03-28-2024 Colonoscopy Doug chu NDT INSPECTOR.CLERICAL RECEPTIONIST Work Phone: Start: 12-22-2023 Mri brain brain stem w/o contrast material George Hollis DO Work Phone: Start: 08-31-2023 Mri spinal canal lum bar w/o & w/contr matrl Nguyen Kurtz NDT INSPECTOR.CLERICAL RECEPTIONIST Work Phone: Start: 07-26-2023 Hysteroscopy with endometrial ablation [employer]I TRUCK DRIVER-C Nguyen Kurtz Work Phone: Start: 06-22-[address] Danni Alvarez Work Phone: Start: 06-22-[address] Tati Alvarez Work Phone: Start: 06-20-2023 Radex spine lumbosac ral minimum 4 views Nguyen Kurtz NDT INSPECTOR.CLERICAL RECEPTIONIST Work Phone: Start: 01-24-2023 Radiologic exam ches t 2 views Nguyen Kurtz NDT INSPECTOR.CLERICAL RECEPTIONIST Work Phone: Start: 01-24-2023 Radiologic exam knee complete 4/more views Nguyen Kurtz NDT INSPECTOR.CLERICAL RECEPTIONIST Work Phone: Start: 09-29-[address] Bernie Harrell Work Phone: Start: 09-16-2022 X-ray of lumbar spin e, two or three views Dr. Bernie Harrell Work Phone: Start: 09-14-2022 Mammography Madeline ferguson PA-C Work Phone: Start: 09-13-2022 Lipid 1996 panel - S margo or Plasma Nguyen Kurtz NDT INSPECTOR.CLERICAL RECEPTIONIST Work Phone: Start: 01-15-2016 Laparoscopic sterilization CHRISTOPHER VARGAS MD Start: 05-16-2006 Cholecystectomy CHRISTOPHER BALBUENA MD H/O: surgery H/O dilation and curettage Nguyen Kurtz SEMI TRUCK DRIVER-C Work Phone: Comment on above: Angelika Urine culture Dr. Bernie dennis Work Phone: Plan of Treatment Date Care Activity Detail Author Start: 02-19-2032 Urine microalbumin profile DTaP,Tdap,Td Vaccine (2 - Td or Tdap) [facility] Start: 09-14-2027 Lipid panel Lipid Screening [facility] Start: 05-16-2027 HPV TESTING HPV TESTING [facility] Start: 05-16-2027 PAP TESTING PAP TESTING [facility] Start: 05-16-2027 Screening for malign ant neoplasm of cervix [facility] Start: 09-13-2025 Diabetes Screening Diabetes Screenin g [facility] Start: 08-10-2025 Covid-19 Vaccine ( season) Covid-19 Vaccine ( season) [facility] Comment on above: Postponed from 01/14 (Declined at this time) Start: 08-10-2025 Pneumococcal vaccination Pneumococcal Vaccine (1 of 2 - PCV) [facility] Comment on above: Postponed from 08/04 (Declined at this time) Start: 03-28-2025 Screening for malign ant neoplasm of colon [facility] Start: 01-14-2025 Influenza vaccination Influenz a Vaccine (Season Ended) [facility] Start: 11-12-2024 Influenza vaccination Influenza Vacc ine (#1) [facility] Comment on above: Postponed from 01/14 (Declined at this time) Start: 11-12-2024 End: 11-12-2024 Patient encounter procedure 11/12/2024 9:00 AM EDT Office Visit [facility] [address] [facility] [place], [place] [id number] Nguyen Kurtz APRN.CLERICAL RECEPTIONIST [address] [place], [place] [id number] physical Family Medicine [facility] Comment on above: physical Start: 09-18-2024 End: 09-18-2024 Patient encounter procedure 09/18/2024 9:00 AM EDT Office Visit [facility] [address] [place], [place] [id number] Nguyen Kurtz APRN.CLERICAL RECEPTIONIST [address] [place], [place] [id number] follow up [facility] Comment on above: follow up Start: 08-17-2024 End: 08-17-2024 Patient encounter procedure 08/17/2024 11:30 AM EDT Appointment Mammogram [address] [place] [address] Encounter for screening mammogram for breast cancer [Z12.31 Mammogram Comment on above: Encounter for screen ing mammogram for breast cancer [Z12.31 Start: 08-10-2024 End: 11-09-2024 Hepatitis C virus Ab [Presence] in Serum [facility] Comment on above: Expected: 08/10/2024 , Expires: 11/09/2024 Start: 03-20-2024 End: 06-19-2024 BETA 2 GLYCOPROTEIN 1, IGA [facility] Comment on above: Expected: 03/20/2024 , Expires: 06/19/2024 Start: 03-20-2024 End: 06-19-2024 BETA 2 GLYCOPROTEIN, IGG [facility] Comment on above: Expected: 03/20/2024 , Expires: 06/19/2024 Start: 03-20-2024 End: 06-19-2024 BETA 2 GLYCOPROTEIN, IGM [facility] Comment on above: Expected: 03/20/2024 , Expires: 06/19/2024 Start: 03-20-2024 End: 06-19-2024 Cardiolipin IgA Ab [Units/volume] in Serum by Immunoassay [facility] Comment on above: Expected: 03/20/2024 , Expires: 06/19/2024 Start: 03-20-2024 End: 06-19-2024 CARDIOLIPIN IGG ABS [facility] Comment on above: Expected: 03/20/2024 , Expires: 06/19/2024 Start: 03-20-2024 End: 06-19-2024 CARDIOLIPIN IGM ABS [facility] Comment on above: Expected: 03/20/2024 , Expires: 06/19/2024 Start: 03-20-2024 End: 06-19-2024 Complement C3 [Mass/volume] in Serum or Plasma [facility] Comment on above: Expected: 03/20/2024 , Expires: 06/19/2024 Start: 03-20-2024 End: 06-19-2024 Complement C4 [Mass/volume] in Serum or Plasma [facility] Comment on above: Expected: 03/20/2024 , Expires: 06/19/2024 Start: 03-20-2024 End: 06-19-2024 Cyclic citrullinated peptide IgG Ab [Units/volume] in Serum or Plasma [facility] Comment on above: Expected: 03/20/2024 , Expires: 06/19/2024 Start: 03-20-2024 End: 06-19-2024 DNA double strand Ab [Units/volume] in Serum by Immunoassay [facility] Comment on above: Expected: 03/20/2024 , Expires: 06/19/2024 Start: 03-20-2024 End: 06-19-2024 Extractable nuclear Ab panel - Serum [facility] Work Phone: Comment on above: Expected: 03/20/2024 , Expires: 06/19/2024 Start: 03-20-2024 End: 06-19-2024 Nuclear Ab [Presence] in Serum by Immunoassay [facility] Comment on above: Expected: 03/20/2024 , Expires: 06/19/2024 Start: 03-20-2024 End: 06-19-2024 Rheumatoid factor [Units/volume] in Serum or Plasma [facility] Comment on above: Expected: 03/20/2024 , Expires: 06/19/2024 Start: 03-20-2024 End: 03-20-2024 Patient encounter procedure 03/20/2024 1:00 PM EST Office Visit Rheumatology [address] [place] [address] Justin Whiteside MD [address] [place] [address] Lupus anticoagulant positive [R76.0] Rheumatology Comment on above: Lupus anticoagulant positive [R76.0] Start: 03-17-2024 Covid-19 Vaccine () Covid-19 Vaccine () [facility] Comment on above: Postponed from 01/14 (Declined at this time) Start: 01-19-2024 End: 04-19-2024 HYPERCOAG DIAG PNL [facility] Work Phone: Comment on above: Expected: 01/19/2024 , Expires: 04/19/2024 Start: 01-15-2024 Covid-19 Vaccine () Covid-19 Vaccine () [facility] Start: 01-15-2024 Covid-19 Vaccine ( season) Covid-19 Vaccine () [facility] Start: 01-15-2024 Influenza vaccination C [facility] Start: 01-03-2024 End: 01-03-2024 Patient encounter procedure 01/03/2024 2:10 PM EDT Office Visit [facility] [address] [place] [id number] [place] [address] [place] [address] mri 3 follow up [facility] Comment on above: mri 3 follow up Start: 12-22-2023 End: 12-22-2023 Patient encounter procedure Radiology Comment on above: 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] Start: 11-18-2023 End: 11-18-2023 Patient encounter procedure 11/18/2023 10:10 AM EDT Office Visit [facility] [id number] [place] [id number] [place] [address] [place] [address] Lumbar radiculopathy [M54.16] [facility] Comment on above: Lumbar radiculopathy [M54.16] Start: 11-13-2023 Influenza vaccination Influenza Vacc ine (#1) [facility] Comment on above: Postponed from 01/14 (Declined at this time) Start: 09-15-2023 Mammography MAMMOGRAM [facility] Start: 09-15-2023 Screening for malign ant neoplasm of breast Mammogram Screening [facility] Start: 09-14-2023 COVID-19 VACCINE (4 - Booster for Moderna series) COVID-19 VACCINE (4 - Booster for Moderna series) [facility] Comment on above: Postponed from 02/05 (Declined at this time) Start: 09-14-2023 PNEUMOCOCCAL (1 - PCV) PNEUMOCOCCAL (1 - PCV) [facility] Comment on above: Postponed from 08/04 (Declined at this time) Start: 09-14-2023 Pneumococcal vaccination Pneumococcal Vaccine (1 of 2 - PCV) [facility] Comment on above: Postponed from 08/04 (Declined at this time) Start: 09-14-2023 Urine microalbumin profile DTAP,TDAP,TD (1 - Tdap) [facility] Comment on above: Postponed from 08/04 (Declined at this time) Start: 08-05-2023 Screening for malign ant neoplasm of colon [facility] Start: 07-26-2023 Urine test [facility] Start: 07-26-2023 Patient discharge [facility] Start: 06-14-2023 Liquid based cervica l cytology screening [facility] Start: 01-14-2023 Influenza vaccination INFLUENZ A (Season Ended) [facility] Start: 10-17-2022 End: 12-17-2022 CBC W Auto Differential panel - Blood CBC + DIFF Lab Routine Leukocytosis, unspecified type Expected: 10/17/2022, Expires: 12/17/2022 [facility] Work Phone: Comment on above: Expected: 10/17/2022 , Expires: 12/17/2022 Start: 09-13-2022 End: 11-13-2022 Comprehensive metabolic 2000 panel - Serum or Plasma [facility] Work Phone: Comment on above: Expected: 09/13/2022 , Expires: 11/13/2022 Start: 09-13-2022 End: 11-13-2022 Hemoglobin A1c in Blood [facility] Work Phone: Comment on above: Expected: 09/13/2022 , Expires: 11/13/2022 Start: 09-13-2022 End: 11-13-2022 LIPID PANEL, NONFASTING [facility] Work Phone: Comment on above: Expected: 09/13/2022 , Expires: 11/13/2022 Start: 2018 Mammography MAMMOGRAM [facility] Start: 1997 Pneumococcal vaccination Pneumococcal Vaccine (1 of 2 - PCV) [facility] Start: 1996 Anxiety Screening Anxiety Screening [facility] Start: 1996 HEPATITIS C SCREENING HEPATITIS C [facility] Start: 1996 Hepatitis C screening Hepatitis C [facility] Start: 1984 Pneumococcal vaccination Pneumococcal Vaccine (1 of 2 - PCV) [facility] End: 09-09-2025 DBT Breast - bilateral screening HENRI SCREENING W BENITEZ Radiology Routine Encounter for screening mammogram for breast cancer 1 Occurrences starting 08/10/2024 until 09/09/2025 [facility] Work Phone: Comment on above: 1 Occurrences starti ng 08/10/2024 until 09/09/2025 End: 10-13-2023 HENRI SCREENING HENRI SCREENING Radiology Routine Encounter for screening mammogram for malignant neoplasm of breast 1 Occurrences starting 09/13/2022 until 10/13/2023 [facility] Work Phone: Comment on above: 1 Occurrences starti ng 09/13/2022 until 10/13/2023 End: 11-17-2024 MG Breast Screening HENRI SCREENING Radiology Routine Encounter for screening mammogram for breast cancer 1 Occurrences starting 10/19/2023 until 11/17/2024 [facility] Work Phone: Comment on above: 1 Occurrences starti ng 10/19/2023 until 11/17/2024 End: 12-17-2024 MR Brain WO contrast MRI BRAIN WO IVCON Radiology Routine Hemisensory deficit Hyperreflexia Balance disorder 1 Occurrences starting 11/18/2023 until 12/17/2024 [facility] Comment on above: 1 Occurrences starti ng 11/18/2023 until 12/17/2024 End: 12-18-2024 MR Cervical spine WO contrast MRI CERVICAL SPINE WO IVCON Radiology Routine Hemisensory deficit Hyperreflexia Balance disorder Spinal stenosis of cervical region 1 Occurrences starting 11/18/2023 until 12/18/2024 [facility] Work Phone: Comment on above: 1 Occurrences starti ng 11/18/2023 until 12/18/2024 MR Lumbar spine [facility] End: 08-27-2024 MR Lumbar spine WO and W contrast IV MRI LUMBAR SPINE WO/W IVCON Radiology Routine Chronic low back pain without sciatica, unspecified back pain laterality Radiculopathy of lumbar region Urinary and bowel incontinence 1 Occurrences starting 07/29/2023 until 08/27/2024 [facility] Work Phone: Comment on above: 1 Occurrences starti ng 07/29/2023 until 08/27/2024 End: 12-17-2024 MR Thoracic spine WO contrast MRI THORACIC SPINE WO IVCON Radiology Routine Hemisensory deficit Hyperreflexia Balance disorder Midline thoracic back pain, unspecified chronicity 1 Occurrences starting 11/18/2023 until 12/17/2024 [facility] Comment on above: 1 Occurrences starti ng 11/18/2023 until 12/17/2024 Path report.final Dx Spec [facility] Patient Education [facility] Work Phone: Patient referral [facility] Work Phone: End: 01-18-2025 US Lower extremity vein US LEG VEIN DVT UNL VAS LAB Vascular Lab STAT Acute pulmonary embolism, unspecified pulmonary embolism type, unspecified whether acute cor pulmonale present (HCC) 1 Occurrences starting 01/19/2024 until 01/18/2025 [facility] Comment on above: 1 Occurrences starti ng 01/19/2024 until 01/18/2025 US Pelvis [facility] US Pelvis transvaginal [facility] Immunizations Immunization Date Immunization Notes Care Provider Surekha stone 02-18-2022 tetanus toxoid, redu demetri diphtheria toxoid, and acellular pertussis vaccine, adsorbed; Translations: [Boostrix (Tdap)] CHRISTOPHER VARGAS MD [facility] 12-11-2021 SARS-CoV-2 (COVID-19 ) mRNA-1273 vaccine CHRISTOPHER VARGAS MD [facility] 10-30-2020 SARS-CoV-2 (COVID-19 ) mRNA-1273 vaccine CHRISTOPHER VARGAS MD [facility] 10-02-2020 SARS-CoV-2 (COVID-19 ) mRNA-1273 vaccine CHRISTOPHER VARGAS MD [facility] 01-08-2012 measles, mumps and rubella virus vaccine Nguyen Kurtz APRN.CLERICAL RECEPTIONIST Work Phone: [facility] Payers Date Payer Category Payer Self-pay [id number] 2022 Medicaid [id number] 2011 Unknown [id number] 2011 Unknown [id number] 1978 Unknown [id number] 2.16.8 [id number] 1978 Unknown [id number] 2.16.8 [id number] 1978 Unknown [id number] 2.16.8 [id number] Unknown SELF INS [facility] KKSG [id number] Unknown [id number] 2.16.8 [id number] Unknown [id number] 2.16.8 [id number] Unknown [id number] 2.16.8 [id number] Unknown [id number] 2.16.8 [id number] Unknown [id number] 2.16.8 [id number] Unknown [id number] 2.16.8 [id number] Unknown [id number] 2.16.8 [id number] Unknown [id number] 2.16.8 [id number] Unknown [id number] 2.16.8 [id number] Unknown [id number] 2.16.8 [id number] Unknown [id number] 2.16.8 [id number] Social History Date Type Detail Facility Start: 05-02-2022 End: 07-07-2023 Tobacco smoking status GAIS Unknown if ever smoked [facility] Start: 01-13-2020 None [facility] Start: 01-13-2020 With Family [facility] Start: 1980 Sex Assigned At Female A [facility] Start: 01-28-2014 End: 03-20-2024 Tobacco smoking status GAIS Smokes tobacco daily [facility] Work Phone: History of tobacco use Cigarette Smoker C [facility] Work Phone: Start: 01-28-2014 End: 11-18-2023 Cigarettes smoked current (pack per day) - Reported 0.5 [facility] Start: 01-28-2014 End: 03-20-2024 Tobacco use and exposure Smokeless tobacco non-user [facility] Work Phone: Start: 09-13-2022 End: 04-30-2024 Alcohol intake Current drinker of alcohol (finding) [facility] Start: 01-28-2014 Alcohol Comment rare [facility] Start: 1980 Sex Assigned At Not on file C [facility] Start: 10-07-2022 Tobacco smoking status Light t obacco smoker (finding) [facility] Start: 09-13-2022 End: 11-18-2023 Tobacco use panel [facility] National Score (1-10 0), lower number is lower risk 66 [facility] Start: 11-17-2023 Gender identity Identifies as female gender (finding) [facility] Start: 11-17-2023 Sexual orientation Heterosexual (aidan ashton) [facility] Has the [employer], or [employer]) threatened to shut off services in your home in past 12Mo No [facility] Do you belong to any clubs or organizations such as taoism groups, unions, fraternal or athletic groups, or school groups? Yes [facility] Are you now , , , , never or living with a partner? Living with partner [facility] How often to you hav e a drink containing alcohol? Never [facility] (I/We) worried wheedis er (my/our) food would run out before (I/we) got money to buy more. Never true [facility] Start: 03-26-2024 Tobacco smoking stat us NHIS Ex-smoker (finding) [facility] NEGATED: Highlighted bridgett [facility] Work Phone: NEGATED: Highlighted bridgett [facility] Functional Status Date Assessment Result Facility 12-18-2014 Are you deaf, or do you have serious difficulty hearing No 12/18/2014 3:21 PM EDT Morena Daniel MA No [facility] 12-18-2014 Are you blind, or do you have serious difficulty seeing, even when wearing glasses No 12/18/2014 3:21 PM EDT Morena Daniel MA No [facility] 12-18-2014 Do you have serious difficulty walking or climbing stairs No 12/18/2014 3:21 PM EDT Morena Daniel MA No [facility] 12-18-2014 Do you have difficul ty dressing or bathing No 12/18/2014 3:21 PM EDT Morena Daniel MA No [facility] 12-18-2014 Because of a physica l, mental, or emotional condition, do you have difficulty doing errands alone such as visiting a physician's office or shopping No 12/18/2014 3:21 PM EDT Morena Daniel MA No [facility] Mental Status Date Assessment Result Facility 12-18-2014 Because of a physica l, mental, or emotional condition, do you have serious difficulty concentrating, remembering, or making decisions No 12/18/2014 3:21 PM EDT Morena Daniel MA No [facility] Clinical Notes 07-26-2011 to 09-18-2024 Nguyen Kurtz APRN.CLERICAL RECEPTIONIST - 09/18/2024 8:56 AM EDTNguyen Kurtz APRN.KENNEY - 09/14/2024 8:58 AM EDTTelephone Encounter - Nguyen Kurtz APRN.CLERICAL RECEPTIONIST - 08/28/2024 9:25 AM EDTPatient Instructions Note Date & Type Note Facility 09-18-2024 Note HNO ID: [id number] Author: NGUYEN KURTZ APRN.CLERICAL RECEPTIONIST Service: ? Author Type: Nurse Practitioner Type: Progress Notes Filed: 09/18/2024 09:02 Note Text: Chief Complaint Patient presents with: Follow Up HPI Speedy Blackwood is a 44 year old female who presents here today for Above Complaints.. From 09/14/24:Patient presents for 3 red bumps to right elbow. Patient reports it started with one bump and now has 3 bumps. Reports they are tender. Today patient presents with no improvement in bumps to right elbow despite completing keflex course. Past medical history, appointments, medications, allergies reviewed. [...] on File Prior to Visit Medication Sig cephALEXin (KEFLEX) 500 mg capsule Take 1 capsule by mouth four times daily for 5 days. omeprazole (PRILOSEC) 20 mg capsule venlafaxine ER (EFFEXOR XR) 37.5 mg 24 hr capsule gabapentin (NEURONTIN) 100 mg capsule Take 1 capsule by mouth every other day for 90 days. No current facility-administered medications on file prior to visit. Social History Social History Tobacco Use Smoking status: Every Day Current packs/day: 0.50 Average packs/day: 0.5 packs/day for 20.0 years (10.0 ttl pk-yrs) Types: Cigarettes Smokeless tobacco: Never Vaping Use Vaping status: current everyday user Substances: Nicotine, Flavoring Devices: Disposable Substance Use Topics Alcohol use: Yes Comment: rare Drug use: Not Currently Types: Marijuana Review of Symptoms REVIEW OF SYSTEMS SEE HPI EXAM: BP 104/68 Pulse 90 Wt 80.7 kg (178 lb) LMP 08/15/2018 BMI 30.55 kg/m? General Appearance: Well appearing, alert, in no acute distress, well-hydrated, well nourished. Skin: Positives: Three red, raised areas to right elbow. no drainage noted. Warm and tender to touch. Firmer than previous evaluation but no change in size. Health Maintenance List Anxiety Screening Never done Mammogram Screening due on 09/15/2023 Covid-19 Vaccine( season) due on 08/10/2025 Pneumococcal Vaccine(1 of 2 - PCV) due on 08/10/2025 Influenza Vaccine(Season Ended) due on 01/14/2025 Colorectal Cancer Screening due on 03/28/2025 Diabetes Screening due on 09/13/2025 Cervical Cancer Screening due on 05/16/2027 Lipid Screening due on 09/14/2027 DTaP,Tdap,Td Vaccine(2 - Td or Tdap) due on 02/19/2032 Hepatitis C Screening Completed HIV Screening Completed Hepatitis B Vaccine Discontinued ASSESSMENT/PLAN: 1. Generalized skin cysts - ICD9: 706.2, ICD10: L72.9 - CONSULT TO DERMATOLOGY Nguyen Kurtz APRN.[facility] 09-18-2024 History of Present illness Narrative Chief Complaint Patient presents with: Follow Up HPI Speedy Blackwood is a 44 year old female who presents here today for Above Complaints.. From 09/14/24:Patient presents for 3 red bumps to right elbow. Patient reports it started with one bump and now has 3 bumps. Reports they are tender. Today patient presents with no improvement in bumps to right elbow despite completing keflex course. Past medical history, appointments, medications, allergies reviewed. [...] on File Prior to Visit Medication Sig cephALEXin (KEFLEX) 500 mg capsule Take 1 capsule by mouth four times daily for 5 days. omeprazole (PRILOSEC) 20 mg capsule venlafaxine ER (EFFEXOR XR) 37.5 mg 24 hr capsule gabapentin (NEURONTIN) 100 mg capsule Take 1 capsule by mouth every other day for 90 days. No current facility-administered medications on file prior to visit. Social History Social History Tobacco Use Smoking status: Every Day Current packs/day: 0.50 Average packs/day: 0.5 packs/day for 20.0 years (10.0 ttl pk-yrs) Types: Cigarettes Smokeless tobacco: Never Vaping Use Vaping status: current everyday user Substances: Nicotine, Flavoring Devices: Disposable Substance Use Topics Alcohol use: Yes Comment: rare Drug use: Not Currently Types: Marijuana Review of Symptoms REVIEW OF SYSTEMS SEE HPI EXAM: BP 104/68 Pulse 90 Wt 80.7 kg (178 lb) LMP 08/15/2018 BMI 30.55 kg/m General Appearance: Well appearing, alert, in no acute distress, well-hydrated, well nourished. Skin: Positives: Three red, raised areas to right elbow. no drainage noted. Warm and tender to touch. Firmer than previous evaluation but no change in size. Health Maintenance List Anxiety Screening Never done Mammogram Screening due on 09/15/2023 Covid-19 Vaccine( season) due on 08/10/2025 Pneumococcal Vaccine(1 of 2 - PCV) due on 08/10/2025 Influenza Vaccine(Season Ended) due on 01/14/2025 Colorectal Cancer Screening due on 03/28/2025 Diabetes Screening due on 09/13/2025 Cervical Cancer Screening due on 05/16/2027 Lipid Screening due on 09/14/2027 DTaP,Tdap,Td Vaccine(2 - Td or Tdap) due on 02/19/2032 Hepatitis C Screening Completed HIV Screening Completed Hepatitis B Vaccine Discontinued ASSESSMENT/PLAN: 1. Generalized skin cysts - ICD9: 706.2, ICD10: L72.9 - CONSULT TO DERMATOLOGY Nguyen Kurtz APRN.CLERICAL RECEPTIONIST documented in this encounter [facility] 09-14-2024 Note HNO ID: [id number] Author: NGUYEN KURTZ APRN.CNP Service: ? Author Type: Nurse Practitioner Type: Progress Notes Filed: 09/14/2024 09:02 Note Text: Chief Complaint Patient presents with: Follow Up: Red bumps on right elbow X 1 month HPI Speedy Blackwood is a 44 year old female who presents here today for Above Complaints.. Patient presents for 3 red bumps to right elbow. Patient reports it started with one bump and now has 3 bumps. Reports they are tender. Past medical history, appointments, medications, allergies reviewed. [...] on File Prior to Visit Medication Sig omeprazole (PRILOSEC) 20 mg capsule venlafaxine ER (EFFEXOR XR) 37.5 mg 24 hr capsule gabapentin (NEURONTIN) 100 mg capsule Take 1 capsule by mouth every other day for 90 days. No current facility-administered medications on file prior to visit. Social History Social History Tobacco Use Smoking status: Every Day Current packs/day: 0.50 Average packs/day: 0.5 packs/day for 20.0 years (10.0 ttl pk-yrs) Types: Cigarettes Smokeless tobacco: Never Vaping Use Vaping status: current everyday user Substances: Nicotine, Flavoring Devices: Disposable Substance Use Topics Alcohol use: Yes Comment: rare Drug use: Not Currently Types: Marijuana Review of Symptoms REVIEW OF SYSTEMS SEE HPI EXAM: BP 107/74 Pulse 88 Wt 81 kg (178 lb 9.2 oz) LMP 08/15/2018 BMI 30.65 kg/m? General Appearance: Well appearing, alert, in no acute distress, well-hydrated, well nourished. Skin: Positives: Three red, raised areas to right elbow. no drainage noted. Warm and tender to touch. Health Maintenance List Anxiety Screening Never done Mammogram Screening due on 09/15/2023 Covid-19 Vaccine( season) due on 08/10/2025 Pneumococcal Vaccine(1 of 2 - PCV) due on 08/10/2025 Influenza Vaccine(Season Ended) due on 01/14/2025 Colorectal Cancer Screening due on 03/28/2025 Diabetes Screening due on 09/13/2025 Cervical Cancer Screening due on 05/16/2027 Lipid Screening due on 09/14/2027 DTaP,Tdap,Td Vaccine(2 - Td or Tdap) due on 02/19/2032 Hepatitis C Screening Completed HIV Screening Completed Hepatitis B Vaccine Discontinued ASSESSMENT/PLAN: 1. Cellulitis of skin - ICD9: 682.9, ICD10: L03.90 - Begin treatment with Cephalaxin (Keflex) - CEPHALEXIN 500 MG CAPSULE Nguyen Kurtz APRN.[facility] 09-14-2024 History of Present illness Narrative Chief Complaint Patient presents with: Follow Up: Red bumps on right elbow X 1 month HPI Speedy Blackwood is a 44 year old female who presents here today for Above Complaints.. Patient presents for 3 red bumps to right elbow. Patient reports it started with one bump and now has 3 bumps. Reports they are tender. Past medical history, appointments, medications, allergies reviewed. [...] on File Prior to Visit Medication Sig omeprazole (PRILOSEC) 20 mg capsule venlafaxine ER (EFFEXOR XR) 37.5 mg 24 hr capsule gabapentin (NEURONTIN) 100 mg capsule Take 1 capsule by mouth every other day for 90 days. No current facility-administered medications on file prior to visit. Social History Social History Tobacco Use Smoking status: Every Day Current packs/day: 0.50 Average packs/day: 0.5 packs/day for 20.0 years (10.0 ttl pk-yrs) Types: Cigarettes Smokeless tobacco: Never Vaping Use Vaping status: current everyday user Substances: Nicotine, Flavoring Devices: Disposable Substance Use Topics Alcohol use: Yes Comment: rare Drug use: Not Currently Types: Marijuana Review of Symptoms REVIEW OF SYSTEMS SEE HPI EXAM: BP 107/74 Pulse 88 Wt 81 kg (178 lb 9.2 oz) LMP 08/15/2018 BMI 30.65 kg/m General Appearance: Well appearing, alert, in no acute distress, well-hydrated, well nourished. Skin: Positives: Three red, raised areas to right elbow. no drainage noted. Warm and tender to touch. Health Maintenance List Anxiety Screening Never done Mammogram Screening due on 09/15/2023 Covid-19 Vaccine( season) due on 08/10/2025 Pneumococcal Vaccine(1 of 2 - PCV) due on 08/10/2025 Influenza Vaccine(Season Ended) due on 01/14/2025 Colorectal Cancer Screening due on 03/28/2025 Diabetes Screening due on 09/13/2025 Cervical Cancer Screening due on 05/16/2027 Lipid Screening due on 09/14/2027 DTaP,Tdap,Td Vaccine(2 - Td or Tdap) due on 02/19/2032 Hepatitis C Screening Completed HIV Screening Completed Hepatitis B Vaccine Discontinued ASSESSMENT/PLAN: 1. Cellulitis of skin - ICD9: 682.9, ICD10: L03.90 - Begin treatment with Cephalaxin (Keflex) - CEPHALEXIN 500 MG CAPSULE Nguyen Kurtz APRN.CNP documented in this encounter [facility] 08-28-2024 Telephone encounter Note Opened in Error. [facility] 08-28-2024 Miscellaneous Notes Opened in Error. documented in this encounter [facility] 08-10-2024 Note HNO ID: [id number] Author: NGUYEN UKRTZ APRN.CNP Service: ? Author Type: Nurse Practitioner Type: Progress Notes Filed: 08/10/2024 13:14 Note Text: Chief Complaint Patient presents with: Follow Up HPI Speedy Blackwood is a 44 year old female who presents here today for Above Complaints.. Patient presents for follow up. Patient had PE in January and hs been treated with eliquis since then. Patient initially had slightly abnormal hypercoag panel but was evaluated by rheum who repeated labs and everything was negative. Reports she stopped smoking the day she was diagnosed with PE. Past medical history, appointments, medications, allergies reviewed. [...] on File Prior to Visit Medication Sig omeprazole (PRILOSEC) 20 mg capsule venlafaxine ER (EFFEXOR XR) 37.5 mg 24 hr capsule gabapentin (NEURONTIN) 100 mg capsule Take 1 capsule by mouth every other day for 90 days. ELIQUIS DVT-PE TREAT 30D START 5 mg (74 tabs) apixaban (ELIQUIS) 5 mg tab(s) Take 1 tablet by mouth two times a day. Patient should start on February 16, 2024. No current facility-administered medications on file prior to visit. Social History Social History Tobacco Use Smoking status: Every Day Current packs/day: 0.50 Average packs/day: 0.5 packs/day for 20.0 years (10.0 ttl pk-yrs) Types: Cigarettes Smokeless tobacco: Never Vaping Use Vaping status: current everyday user Substances: Nicotine, Flavoring Devices: Disposable Substance Use Topics Alcohol use: Yes Comment: rare Drug use: Not Currently Types: Marijuana Review of Symptoms REVIEW OF SYSTEMS SEE HPI EXAM: BP 113/76 Pulse 86 Wt 81 kg (178 lb 9.2 oz) LMP 08/15/2018 BMI 30.65 kg/m? General Appearance: Well appearing, alert, in no acute distress, well-hydrated, well nourished. Lungs: Lungs clear to auscultation. No wheezing, rhonchi, rales.. Heart: RRR without murmur, gallop, or rubs. No ectopy. Peripheral Pulses: Normal. Health Maintenance List Anxiety Screening Never done Hepatitis C Screening Never done Pneumococcal Vaccine(1 of 2 - PCV) Never done Mammogram Screening due on 09/15/2023 Influenza Vaccine(1) Never done Covid-19 Vaccine() due on 01/15/2024 Colorectal Cancer Screening due on 03/28/2025 Diabetes Screening due on 09/13/2025 Cervical Cancer Screening due on 05/16/2027 Lipid Screening due on 09/14/2027 DTaP,Tdap,Td Vaccine(2 - Td or Tdap) due on 02/19/2032 HIV Screening Completed Hepatitis B Vaccine Discontinued ASSESSMENT/PLAN: 1. Acute pulmonary embolism, unspecified pulmonary embolism type, unspecified whether acute cor pulmonale present (HCC) - ICD9: 415.19, ICD10: I26.99 (primary diagnosis) -Resolved. Patient completed 6 months of eliquis. Ok to stop eliquis at this time. Continue smoking cessation 2. Lupus anticoagulant positive - ICD9: 795.79, ICD10: R76.0 -Resolved and cleared by Rheum 3. Encounter for screening mammogram for breast cancer - ICD9: V76.12, ICD10: Z12.31 - Set up for mammogram, yearly mammogram recommended - Encouraged monthly BSE - Follow up for annual exam in one year. - HENRI SCREENING W BENITEZ 4. Special screening examination for viral disease - ICD9: V73.99, ICD10: Z11.59 - HEPATITIS C ANTIBODY IA WITH CONFIRMATION Nguyen Kurtz APRN.[facility] 08-10-2024 History of Present illness Narrative Chief Complaint Patient presents with: Follow Up HPI Speedy Blackwood is a 44 year old female who presents here today for Above Complaints.. Patient presents for follow up. Patient had PE in January and hs been treated with eliquis since then. Patient initially had slightly abnormal hypercoag panel but was evaluated by rheum who repeated labs and everything was negative. Reports she stopped smoking the day she was diagnosed with PE. Past medical history, appointments, medications, allergies reviewed. [...] on File Prior to Visit Medication Sig omeprazole (PRILOSEC) 20 mg capsule venlafaxine ER (EFFEXOR XR) 37.5 mg 24 hr capsule gabapentin (NEURONTIN) 100 mg capsule Take 1 capsule by mouth every other day for 90 days. ELIQUIS DVT-PE TREAT 30D START 5 mg (74 tabs) apixaban (ELIQUIS) 5 mg tab(s) Take 1 tablet by mouth two times a day. Patient should start on February 16, 2024. No current facility-administered medications on file prior to visit. Social History Social History Tobacco Use Smoking status: Every Day Current packs/day: 0.50 Average packs/day: 0.5 packs/day for 20.0 years (10.0 ttl pk-yrs) Types: Cigarettes Smokeless tobacco: Never Vaping Use Vaping status: current everyday user Substances: Nicotine, Flavoring Devices: Disposable Substance Use Topics Alcohol use: Yes Comment: rare Drug use: Not Currently Types: Marijuana Review of Symptoms REVIEW OF SYSTEMS SEE HPI EXAM: BP 113/76 Pulse 86 Wt 81 kg (178 lb 9.2 oz) LMP 08/15/2018 BMI 30.65 kg/m General Appearance: Well appearing, alert, in no acute distress, well-hydrated, well nourished. Lungs: Lungs clear to auscultation. No wheezing, rhonchi, rales.. Heart: RRR without murmur, gallop, or rubs. No ectopy. Peripheral Pulses: Normal. Health Maintenance List Anxiety Screening Never done Hepatitis C Screening Never done Pneumococcal Vaccine(1 of 2 - PCV) Never done Mammogram Screening due on 09/15/2023 Influenza Vaccine(1) Never done Covid-19 Vaccine( season) due on 01/15/2024 Colorectal Cancer Screening due on 03/28/2025 Diabetes Screening due on 09/13/2025 Cervical Cancer Screening due on 05/16/2027 Lipid Screening due on 09/14/2027 DTaP,Tdap,Td Vaccine(2 - Td or Tdap) due on 02/19/2032 HIV Screening Completed Hepatitis B Vaccine Discontinued ASSESSMENT/PLAN: 1. Acute pulmonary embolism, unspecified pulmonary embolism type, unspecified whether acute cor pulmonale present (HCC) - ICD9: 415.19, ICD10: I26.99 (primary diagnosis) -Resolved. Patient completed 6 months of eliquis. Ok to stop eliquis at this time. Continue smoking cessation 2. Lupus anticoagulant positive - ICD9: 795.79, ICD10: R76.0 -Resolved and cleared by Rheum 3. Encounter for screening mammogram for breast cancer - ICD9: V76.12, ICD10: Z12.31 - Set up for mammogram, yearly mammogram recommended - Encouraged monthly BSE - Follow up for annual exam in one year. - HENRI SCREENING W BENITEZ 4. Special screening examination for viral disease - ICD9: V73.99, ICD10: Z11.59 - HEPATITIS C ANTIBODY IA WITH CONFIRMATION Nguyen Kurtz APRN.KENNEY documented in this encounter [facility] 04-30-2024 Note HNO ID: [id number] Author: DOUG VERNON APRN.CNP Service: ? Author Type: Nurse Practitioner Type: Progress Notes Filed: 04/30/2024 08:05 Note Text: Subjective HPI Nontoxic-appearing female presents urgent care chief complaint rash. Duration of symptoms 4 days. Associated symptoms slightly pruritic and painful rash on right torso area. Most bothersome symptom today is pain. OTC medications none. No recent lifestyle or medication changes. No recent antibiotic use. Past medical history prescription medications allergies reviewed. Has had chickenpox in the past. .Patient presents with: Rash: right side abdominal area x 4 days, burning and itching PAST MEDICAL HISTORY Diagnosis Date Abdominal pain, right upper quadrant Dysthymic disorder Depression (non-psychotic) Low iron Lumbosacral radiculopathy at L4 02/2014 Migraine without aura Nonspecific elevation of levels of transaminase or lactic acid dehydrogenase (LDH) Scoliosis PAST SURGICAL HISTORY Procedure Laterality Date LAPS SURG CHOLECYSTECTOMY W/CHOLANGIOGRAPHY 12/15/2007 ? abnormal CBD LIGATE FALLOPIAN TUBE Bilateral 2015 PAST SURGICAL HISTORY OF dental extraction ALLERGIES Patient has no known allergies. MEDICATIONS omeprazole (PRILOSEC) 20 mg capsule venlafaxine ER (EFFEXOR XR) 37.5 mg 24 hr capsule gabapentin (NEURONTIN) 100 mg capsule Take 1 capsule by mouth every other day for 90 days. apixaban (ELIQUIS) 5 mg tab(s) Take 1 tablet by mouth two times a day. Patient should start on February 16, 2024. ELIQUIS DVT-PE TREAT 30D START 5 mg (74 tabs) FAMILY HISTORY Problem Relation Age of Onset Alcohol/Drug Mother Alcohol/Drug Father Cancer Mother LIVER CANCER Cancer Father ESOPHAGEAL CANCER Cancer Maternal Grandmother LIVER CANCER Cancer Paternal Uncle LUNG CANCER Diabetes Paternal Grandmother Emphysema Mother Seizures Maternal Grandfather Social History Tobacco Use Smoking status: Every Day Current packs/day: 0.50 Average packs/day: 0.5 packs/day for 20.0 years (10.0 ttl pk-yrs) Types: Cigarettes Smokeless tobacco: Never Vaping Use Vaping status: current everyday user Substances: Nicotine, Flavoring Devices: Disposable Substance Use Topics Alcohol use: Yes Comment: rare Drug use: Not Currently Types: Marijuana BP 110/72 Pulse 98 Temp 36.7 ?C (98 ?F) Resp 16 Wt 79.5 kg (175 lb 4.3 oz) LMP 08/15/2018 SpO2 98% BMI 30.08 kg/m? Review of Systems Constitutional: Negative for chills, fever and malaise/fatigue. HENT: Negative for congestion, ear discharge, ear pain, sinus pain and sore throat. Eyes: Negative for blurred vision, pain, discharge and redness. Respiratory: Negative for cough, hemoptysis, sputum production, shortness of breath, wheezing and stridor. Cardiovascular: Negative for chest pain. Gastrointestinal: Negative for abdominal pain, diarrhea, nausea and vomiting. Musculoskeletal: Negative for myalgias. Skin: Positive for itching and rash. Neurological: Negative for dizziness and headaches. Objective Physical Exam Constitutional: General: She is not in acute distress. Appearance: She is not diaphoretic. HENT: Head: Normocephalic. Jaw: No trismus, tenderness, swelling or pain on movement. Mouth/Throat: Mouth: Mucous membranes are moist. Pharynx: Oropharynx is clear. Uvula midline. No pharyngeal swelling, oropharyngeal exudate, posterior oropharyngeal erythema or uvula swelling. Eyes: Conjunctiva/sclera: Conjunctivae normal. Pupils: Pupils are equal, round, and reactive to light. Cardiovascular: Rate and Rhythm: Normal rate and regular rhythm. Heart sounds: Normal heart sounds. Pulmonary: Effort: Pulmonary effort is normal. No tachypnea, accessory muscle usage or respiratory distress. Breath sounds: Normal breath sounds. No stridor. No wheezing, rhonchi or rales. Musculoskeletal: Cervical back: Normal range of motion and neck supple. No edema, erythema, rigidity or tenderness. No pain with movement. Normal range of motion. Lymphadenopathy: Cervical: No cervical adenopathy. Skin: General: Skin is warm and dry. Comments: Maculopapular rash fluid-filled vesicles and patches noted highlighted area. Does not cross midline. Rash is blanching. No mucosal membrane involvement or desquamation of skin. Neurological: Mental Status: She is alert and oriented to person, place, and time. ASSESSMENT/PLAN: 1. Rash - ICD9: 782.1, ICD10: R21 Diagnosed with rash. Suspicious of shingles. GFR 111 in September of last year. Placed on Valtrex. Patient was educated on supportive therapies. Patient will follow up with primary care provider as needed. Patient was instructed to immediately proceed to emergency room for any new, worsening, or symptoms lasting longer than anticipated. The patient's clinical presentation is otherwise unremarkable at this time. Based on exam and clinical finding, the patient (more content not included)... [facility] 04-30-2024 History of Present illness Narrative Images from the original note were not included. Subjective HPI Nontoxic-appearing female presents urgent care chief complaint rash. Duration of symptoms 4 days. Associated symptoms slightly pruritic and painful rash on right torso area. Most bothersome symptom today is pain. OTC medications none. No recent lifestyle or medication changes. No recent antibiotic use. Past medical history prescription medications allergies reviewed. Has had chickenpox in the past. .Patient presents with: Rash: right side abdominal area x 4 days, burning and itching PAST MEDICAL HISTORY Diagnosis Date Abdominal pain, right upper quadrant Dysthymic disorder Depression (non-psychotic) Low iron Lumbosacral radiculopathy at L4 02/2014 Migraine without aura Nonspecific elevation of levels of transaminase or lactic acid dehydrogenase (LDH) Scoliosis PAST SURGICAL HISTORY Procedure Laterality Date LAPS SURG CHOLECYSTECTOMY W/CHOLANGIOGRAPHY 12/15/2007 ? abnormal CBD LIGATE FALLOPIAN TUBE Bilateral 2015 PAST SURGICAL HISTORY OF dental extraction ALLERGIES Patient has no known allergies. MEDICATIONS omeprazole (PRILOSEC) 20 mg capsule venlafaxine ER (EFFEXOR XR) 37.5 mg 24 hr capsule gabapentin (NEURONTIN) 100 mg capsule Take 1 capsule by mouth every other day for 90 days. apixaban (ELIQUIS) 5 mg tab(s) Take 1 tablet by mouth two times a day. Patient should start on February 16, 2024. ELIQUIS DVT-PE TREAT 30D START 5 mg (74 tabs) FAMILY HISTORY Problem Relation Age of Onset Alcohol/Drug Mother Alcohol/Drug Father Cancer Mother LIVER CANCER Cancer Father ESOPHAGEAL CANCER Cancer Maternal Grandmother LIVER CANCER Cancer Paternal Uncle LUNG CANCER Diabetes Paternal Grandmother Emphysema Mother Seizures Maternal Grandfather Social History Tobacco Use Smoking status: Every Day Current packs/day: 0.50 Average packs/day: 0.5 packs/day for 20.0 years (10.0 ttl pk-yrs) Types: Cigarettes Smokeless tobacco: Never Vaping Use Vaping status: current everyday user Substances: Nicotine, Flavoring Devices: Disposable Substance Use Topics Alcohol use: Yes Comment: rare Drug use: Not Currently Types: Marijuana BP 110/72 Pulse 98 Temp 36.7 C (98 F) Resp 16 Wt 79.5 kg (175 lb 4.3 oz) LMP 08/15/2018 SpO2 98% BMI 30.08 kg/m Review of Systems Constitutional: Negative for chills, fever and malaise/fatigue. HENT: Negative for congestion, ear discharge, ear pain, sinus pain and sore throat. Eyes: Negative for blurred vision, pain, discharge and redness. Respiratory: Negative for cough, hemoptysis, sputum production, shortness of breath, wheezing and stridor. Cardiovascular: Negative for chest pain. Gastrointestinal: Negative for abdominal pain, diarrhea, nausea and vomiting. Musculoskeletal: Negative for myalgias. Skin: Positive for itching and rash. Neurological: Negative for dizziness and headaches. Objective Physical Exam Constitutional: General: She is not in acute distress. Appearance: She is not diaphoretic. HENT: Head: Normocephalic. Jaw: No trismus, tenderness, swelling or pain on movement. Mouth/Throat: Mouth: Mucous membranes are moist. Pharynx: Oropharynx is clear. Uvula midline. No pharyngeal swelling, oropharyngeal exudate, posterior oropharyngeal erythema or uvula swelling. Eyes: Conjunctiva/sclera: Conjunctivae normal. Pupils: Pupils are equal, round, and reactive to light. Cardiovascular: Rate and Rhythm: Normal rate and regular rhythm. Heart sounds: Normal heart sounds. Pulmonary: Effort: Pulmonary effort is normal. No tachypnea, accessory muscle usage or respiratory distress. Breath sounds: Normal breath sounds. No stridor. No wheezing, rhonchi or rales. Musculoskeletal: Cervical back: Normal range of motion and neck supple. No edema, erythema, rigidity or tenderness. No pain with movement. Normal range of motion. Lymphadenopathy: Cervical: No cervical adenopathy. Skin: General: Skin is warm and dry. Comments: Maculopapular rash fluid-filled vesicles and patches noted highlighted area. Does not cross midline. Rash is blanching. No mucosal membrane involvement or desquamation of skin. Neurological: Mental Status: She is alert and oriented to person, place, and time. ASSESSMENT/PLAN: 1. Rash - ICD9: 782.1, ICD10: R21 Diagnosed with rash. Suspicious of shingles. GFR 111 in September of last year. Placed on Valtrex. Patient was educated on supportive therapies. Patient will follow up with primary care provider as needed. Patient was instructed to immediately proceed to emergency room for any new, worsening, or symptoms lasting longer than anticipated. The patient's clinical presentation is otherwise unremarkable at this time. Based on exam and clinical finding, the patient is stable for discharge. Plan of care was discussed with patient. Patient verbalizes understanding and agrees to plan of care. This note was generated using Perfect[employer]erve software. It may contain errors in wording, punctuation, or spelling. Doug Vernon APRN.CLERICAL RECEPTIONIST documented in this encounter [facility] 03-28-2024 Note [facility] Medical Records Department [address] [place] [address] History Physical Exam 03/28/24 1358 MR#: [id number] Acct: [id number] Name: SPEEDY BLACKWOOD Rep #: [id number] : 1980 43 From: Jovan Friend PCP: CONRAD Miller Status:[facility] Location: [place] [address] History and Physical Date of Admission: 03/28/24 SPEEDY BLACKWOOD, is a 43 F who presents to the office today for establishment with [facility]. Pt has a past medical hx of neuropathy, lupus, IBS, hot flashes, menorrhagia, and scoliosis. Over the past year she has been having new onset diarrhea with leaking stool. She will be sleeping at night and get up to use the bathroom and notice some stool on her underwear. She rarely has a formed bowel movement. Her stools are loose 80-90% of the time. She also mentions some epigastric and chest pain. She has had cardiac work up for this but has been without abnormality so she feels this may be related to GERD. She takes an OTC antacid pill on occasion which is helpful. She has never had an EGD or colonoscopy.She denies abdominal pain, n/v, constipation, or melena. ROS Const Constitutional: No anorexia, fatigue, fever(s), weight change or sleep problems Eyes Eyes: No change in vision ENT ENT: No abnormal hearing, difficulty swallowing, mouth lesions, tongue swelling or throat swelling Resp Respiratory: No cough or shortness of breath Cardio Cardiology: No chest pain at rest, chest pain with exertion, shortness of breath or dyspnea on exertion Gastro GI: Positive for diarrhea and heartburn; No difficulty swallowing Genitourinary-Female: No difficulty urinating or burning urination Musc Musculoskeletal: Positive for Arthritis Skin Skin: No hair loss in leg, yellowing of the eye, itchy eyes, rash, skin ulcer or skin swelling Neuro Neurology: No abnormal hearing, abnormal movements, confusion, unsteady gait/balance or memory loss Psych Psychiatric: Positive for anxiety, No confusion, Positive for depression and No memory loss Endo Endocrine: No fatigue or weight change Aller/Imm Allergy/Immunologic: No itchy eyes, throat swelling or tongue swelling Nolan/Lymp Hematologic/Lymphatic: No easy bleeding, easy bruising or enlarged lymph nodes Exam Const General: cooperative and comfortable Nutritional Appearance: average body habitus and well nourished HENMT Head: normal to inspection Ears: hearing grossly normal bilaterally Nose: external nose normal Face and sinus: normal facial exam Eyes General: appearance normal, both eyes and all related structures Neck Neck: normal visual inspection Chest Chest palpation inspection: normal inspection of the chest Resp Effort Inspection: normal respiratory effort GI Inspection: normal to inspection Palpation: no hepatosplenomegaly Skin General: no rashes or lesions noted Neuro General: patient alert Extrem General: normal to inspection Psych Affect: normal affect Assessment and Plan Assessment and Plan (1) Incontinence of feces: Plan: Pt is a 43 yo female here today for establishment with [facility] for evaluation of fecal incontinence and diarrhea. This has been happening for a year now. She rarely has a formed bm. She notices stool in her underwear when she wakes up in the morning. She also has epigastric/chest pain that she feels is related to reflux. We will start work up with stool testing and scopes. She is agreeable to this plan. I sent rx for colestipol 1 gram to the pharmacy. She would like to hold off on starting a daily PPI until she gets the EGD.Differential for diarrhea includes EPI, IBS, IBD, or colitis. -COlonoscopy -EGD -colestipol 1 gram daily -f/u in 3 months Medications: New colestipol 1 g PO QDAY 30 tabs 2RF I have examined the patient and the H P has been reviewed. There are no clinical changes since date of exam. 03/28/24 1358 Cosigner Signature (if applicable): CC: CONRAD Kurtz; Jovan Hidalgo, Signed [facility] 03-20-2024 Instructions Justin Whiteside MD - 03/20/2024 1:32 PM EST Labs today I will contact you through [email or web address] for results. documented in this encounter [facility] 03-20-2024 History of Present illness Narrative Justin Whiteside MD Speedy Blackwood March 19, 2024 Referring Provider:Nguyen Kurtz PCP: Nguyen Kurtz APRN.CLERICAL RECEPTIONIST Chief Complaint: Patient presents with: Consult HPI:Speedy Blackwood is a 43 year old female who comes here today for positive anticardiolipin. Patient was diagnosed with PE 01/17/24 by local emergency room after she presented with chest pain and dyspnea. She was started on Eliquis. She is doing better now. Chest pain is gone. Dyspnea is minimal. Patient reports she quit smoking when she was diagnosed with PE. She was subsequently seen by her PCP who ordered her s. she was found to have positive anticardiolipin IgM at low titer. Therefore, the patient is referred to see me today. This the first time that she is ever diagnosed with PE. No prior history of PE or DVT. No history of miscarriage. Review of system is negative for -Inflammatory eye disease -Sicca symptoms -Raynaud's -Pleurisy -Recurrent oral or nasal ulcer -Inflammatory joint pain -Photosensitivity -Alopecia The patient denies family history of RA, SLE, , psoriasis, IBD, uveitis, other autoimmune diseases. PAST MEDICAL HISTORY Diagnosis Date Abdominal pain, right upper quadrant Dysthymic disorder Depression (non-psychotic) Low iron Lumbosacral radiculopathy at L4 02/2014 Migraine without aura Nonspecific elevation of levels of transaminase or lactic acid dehydrogenase (LDH) Scoliosis PAST SURGICAL HISTORY Procedure Laterality Date LAPS SURG CHOLECYSTECTOMY W/CHOLANGIOGRAPHY 12/15/2007 ? abnormal CBD LIGATE FALLOPIAN TUBE Bilateral 2015 PAST SURGICAL HISTORY OF dental extraction Social History Tobacco Use Smoking status: Every Day Current packs/day: 0.50 Average packs/day: 0.5 packs/day for 20.0 years (10.0 ttl pk-yrs) Types: Cigarettes Smokeless tobacco: Never Vaping Use Vaping status: current everyday user Substances: Nicotine, Flavoring Devices: Disposable Substance Use Topics Alcohol use: Yes Comment: rare Drug use: Not Currently Types: Marijuana Health Maintenance: Pneumococcal Vaccine(1 of 2 - PCV) Never done Anxiety Screening Never done Hepatitis C Screening Never done Colorectal Cancer Screening Never done Mammogram Screening due on 09/15/2023 Influenza Vaccine(1) Never done Covid-19 Vaccine( season) due on 01/15/2024 Immunization History Administered Date(s) Administered COVID-19 original vaccine, full dose, monovalent (MODERNA) 10/02/2020 10/30/2020 12/11/2021 measles mumps rubella (MMR) vaccine (M-M-R II, PRIORIX) 01/08/2012 Current Outpatient Medications Medication Sig Dispense Refill gabapentin (NEURONTIN) 100 mg capsule Take 1 capsule by mouth every other day for 90 days. 45 capsule 0 ELIQUIS DVT-PE TREAT 30D START 5 mg (74 tabs) apixaban (ELIQUIS) 5 mg tab(s) Take 1 tablet by mouth two times a day. Patient should start on February 16, 2024. 180 tablet 1 albuterol HFA (PROVENTIL HFA, VENTOLIN HFA) 90 mcg/actuation inhaler Inhale 2 Puffs as instructed every 4 hours as needed for wheezing/shortness of breath. 18 g 0 cloNIDine HCl (CATAPRES) 0.1 mg tablet Take 0.1 mg by mouth daily at bedtime. FLUoxetine (PROZAC) 20 mg capsule Take 1 capsule by mouth once daily. 30 capsule 3 Cholecalciferol, Vitamin D3, 2,000 unit cap Take 1 capsule by mouth daily at bedtime. L.ACID/L.CASEI/B.BIF/B.KAVYA/FOS (PROBIOTIC BLEND ORAL) Take 1 capsule by mouth once daily. No current facility-administered medications for this visit. ALLERGIES No Known Allergies Physical Exam: BP 119/71 Pulse 91 Ht 5' 4" (1.63m) Wt 166 lb (75.3kg) LMP 08/15/2018 BMI 28.48 kg/(m^2). General: Not pale, no jaundice, not in acute distress Head: Normocephalic, atraumatic Eyes: No redeye, no discharge ENT: No oral/nasal ulcer Neck: No lymphadenopathy Lungs: Normal breath sound, no adventitious sound Abdomen: Soft, not tender CV: Normal S1 S2, no murmur, no rub, pulse regular Skin: No rash, no malar rash, no telangiectasia, no pitting nail/onycholysis, no gross periungual telangiectasia Neuro: Grossly intact, motor power 5 all Joints LEFT Shoulder Full ROM, not tender Elbow Full ROM, not tender, not swollen Wrist Full ROM, not tender, not swollen 2nd MCP Not tender, not swollen 3rd MCP Not tender, not swollen 4th MCP Not tender, not swollen 5th MCP Not tender, not swollen 1st IP Not tender, not swollen 2nd PIP Not tender, not swollen 3rd PIP Not tender, not swollen 4th PIP Not tender, not swollen 5th PIP Not tender, not swollen 2nd DIP Not tender, not swollen 3rd DIP Not tender, not swollen 4th DIP Not tender, not swollen 5th DIP Not tender, not swollen Hip Full ROM Knee Full ROM, not tender, no effusion Ankle Not tender, not swollen Achilles Not tender, not swollen Squeezing test Negative RIGHT Shoulder Full ROM, not tender Elbow Full ROM, not tender, not swollen Wrist Full ROM, not tender, not swollen 2nd MCP Not tender, not swollen 3rd MCP Not tender, not swollen 4th MCP Not tender, not swollen 5th MCP Not tender, not swollen 1st IP Not tender, not swollen 2nd PIP Not tender, not swollen 3rd PIP Not tender, not swollen 4th PIP Not tender, not swollen 5th PIP Not tender, not swollen 2nd DIP Not tender, not swollen 3rd DIP Not tender, not swollen 4th DIP Not tender, not swollen 5th DIP Not tender, not swollen Hip Full ROM Knee Full ROM, not tender, no effusion Ankle Not tender, not swollen Achilles Not tender, not swollen Squeezing test Negative Labs: Serology: CRP: No results found for: CCPABG RF: No results found for: "RF" ESR: No results found for: "WSR" CRP CRP (mg/dL) Date Value 01/19/2024 7.6 Quantiferon:No components found for: "QTBA" Cr: No components found for: "CR" CBC: Imaging: Impression: 43 year old female presents for rheumatology evaluation at [facility] on March 19, 2024. Pulmonary embolism Positive anticardiolipin IgM Former smoker I have a low suspicion that we are dealing with antiphospholipid antibody syndrome given that she does not have history of recurrent VTE or miscarriages. Her anticardiolipin IgM is also only positive at low titer. Will repeat her anticardiolipin again as a result could be falsely positive. Will also obtain beta-2 glycoprotein. LA cannot be done as she is still taking Eliquis. Since antiphospholipid antibody syndrome can sometimes be seen in association with connective tissue disease, will obtain COLETTE and PRANAV panel as well although my suspicion for underlying autoimmune CTD is low given the absence of any signs symptoms. Recommendations/Plan Plan discussed with patient Return Visit: I will contact her through [email or web address] for results. We will make a plan after the results are available. I spent a total of 50 minutes on the date of the service which included preparing to see the patient, [id number] patient care, completing clinical documentation, obtaining and/or reviewing separately obtained history, performing a medically appropriate examination, counseling and educating the patient/family/caregiver, and ordering medications, tests, or procedures. Justin Whitesdie MD Referring Provider:Nguyen Kurtz PCP: Nguyen Kurtz APRN.CLERICAL RECEPTIONIST Answers submitted by the patient for this visit: Review of Systems Rheumatology (Submitted on 03/13/2024) Recent unintentional weight change: No Eye pain: No Eye redness: No Vision Disturbance: No Eye Dryness: No Nosebleeds: No Sores in your mouth: No Trouble Swallowing: No Dry Mouth: Yes Chest pain: No Leg Swelling: Yes A cough: Yes Blood when you cough: No Shortness of breath: No Pain with breathing: No Heartburn: No Abdominal pain: No Diarrhea: Yes Black tarry stools: No Blood in urine: No Pain or burning with urination: No Joint pain or stiffness: Yes Muscle weakness: No Muscle aches: No Joint swelling: Yes Morning Stiffness in Joints: No A rash: Yes Do you have sun sensitive rashes?: No Skin Color Changes: No Hair Loss: Yes Nail Changes: Yes Headaches: No Numbness: No Memory Loss: Yes Swollen Glands: No documented in this encounter [facility] 03-20-2024 Note HNO ID: [id number] Author: JUSTIN WHITESIDE MD Service: ? Author Type: Physician Type: Progress Notes Filed: 03/20/2024 14:11 Note Text: MD Speedy Paniagua March 19, 2024 Referring Provider:Nguyen Kurtz PCP: Nguyen Kurtz APRN.CLERICAL RECEPTIONIST Chief Complaint: Patient presents with: Consult HPI:Speedy Blackwood is a 43 year old female who comes here today for positive anticardiolipin. Patient was diagnosed with PE 01/17/24 by local emergency room after she presented with chest pain and dyspnea. She was started on Eliquis. She is doing better now. Chest pain is gone. Dyspnea is minimal. Patient reports she quit smoking when she was diagnosed with PE. She was subsequently seen by her PCP who ordered her s. she was found to have positive anticardiolipin IgM at low titer. Therefore, the patient is referred to see me today. This the first time that she is ever diagnosed with PE. No prior history of PE or DVT. No history of miscarriage. Review of system is negative for -Inflammatory eye disease -Sicca symptoms -Raynaud's -Pleurisy -Recurrent oral or nasal ulcer -Inflammatory joint pain -Photosensitivity -Alopecia The patient denies family history of RA, SLE, , psoriasis, IBD, uveitis, other autoimmune diseases. PAST MEDICAL HISTORY Diagnosis Date Abdominal pain, right upper quadrant Dysthymic disorder Depression (non-psychotic) Low iron Lumbosacral radiculopathy at L4 02/2014 Migraine without aura Nonspecific elevation of levels of transaminase or lactic acid dehydrogenase (LDH) Scoliosis PAST SURGICAL HISTORY Procedure Laterality Date LAPS SURG CHOLECYSTECTOMY W/CHOLANGIOGRAPHY 12/15/2007 ? abnormal CBD LIGATE FALLOPIAN TUBE Bilateral 2015 PAST SURGICAL HISTORY OF dental extraction Social History Tobacco Use Smoking status: Every Day Current packs/day: 0.50 Average packs/day: 0.5 packs/day for 20.0 years (10.0 ttl pk-yrs) Types: Cigarettes Smokeless tobacco: Never Vaping Use Vaping status: current everyday user Substances: Nicotine, Flavoring Devices: Disposable Substance Use Topics Alcohol use: Yes Comment: rare Drug use: Not Currently Types: Marijuana Health Maintenance: Pneumococcal Vaccine(1 of 2 - PCV) Never done Anxiety Screening Never done Hepatitis C Screening Never done Colorectal Cancer Screening Never done Mammogram Screening due on 09/15/2023 Influenza Vaccine(1) Never done Covid-19 Vaccine( season) due on 01/15/2024 Immunization History Administered Date(s) Administered COVID-19 original vaccine, full dose, monovalent (MODERNA) 10/02/2020 10/30/2020 12/11/2021 measles mumps rubella (MMR) vaccine (M-M-R II, PRIORIX) 01/08/2012 Current Outpatient Medications Medication Sig Dispense Refill gabapentin (NEURONTIN) 100 mg capsule Take 1 capsule by mouth every other day for 90 days. 45 capsule 0 ELIQUIS DVT-PE TREAT 30D START 5 mg (74 tabs) apixaban (ELIQUIS) 5 mg tab(s) Take 1 tablet by mouth two times a day. Patient should start on February 16, 2024. 180 tablet 1 albuterol HFA (PROVENTIL HFA, VENTOLIN HFA) 90 mcg/actuation inhaler Inhale 2 Puffs as instructed every 4 hours as needed for wheezing/shortness of breath. 18 g 0 cloNIDine HCl (CATAPRES) 0.1 mg tablet Take 0.1 mg by mouth daily at bedtime. FLUoxetine (PROZAC) 20 mg capsule Take 1 capsule by mouth once daily. 30 capsule 3 Cholecalciferol, Vitamin D3, 2,000 unit cap Take 1 capsule by mouth daily at bedtime. L.ACID/L.CASEI/B.BIF/B.KAVYA/FOS (PROBIOTIC BLEND ORAL) Take 1 capsule by mouth once daily. No current facility-administered medications for this visit. ALLERGIES No Known Allergies Physical Exam: BP 119/71 Pulse 91 Ht 5' 4" (1.63m) Wt 166 lb (75.3kg) LMP 08/15/2018 BMI 28.48 kg/(m2). General: Not pale, no jaundice, not in acute distress Head: Normocephalic, atraumatic Eyes: No redeye, no discharge ENT: No oral/nasal ulcer Neck: No lymphadenopathy Lungs: Normal breath sound, no adventitious sound Abdomen: Soft, not tender CV: Normal S1 S2, no murmur, no rub, pulse regular Skin: No rash, no malar rash, no telangiectasia, no pitting nail/onycholysis, no gross periungual telangiectasia Neuro: Grossly intact, motor power 5 all Joints LEFT Shoulder Full ROM, not tender Elbow Full ROM, not tender, not swollen Wrist Full ROM, not tender, not swollen 2nd MCP Not tender, not swollen 3rd MCP Not tender, not swollen 4th MCP Not tender, not swollen 5th MCP Not tender, not swollen 1st IP Not tender, not swollen 2nd PIP Not tender, not swollen 3rd PIP Not tender, not swollen 4th PIP Not tender, not swollen 5th PIP Not tender, not swollen 2nd DIP Not tender, not swollen 3rd DIP Not tender, not swollen 4th DIP Not tender, not swollen 5th DIP Not tender, not swollen Hip Full ROM Knee Full ROM, not tender, no effusion Ankle Not tender, not swollen A (more content not included)... [facility] 01-31-2024 Telephone encounter Note Patient calls for chest pain. Nurse triage recommends call EMS now. Patient will have someone take her to ER at this time. Care advice reviewed. Patient verbalizes understanding. Reason for Disposition [1] Chest pain lasts > 5 minutes AND [2] age > 44 Answer Assessment - Initial Assessment Questions 1. LOCATION: Patient reports right over her chest. 2. RADIATION: Radiates to neck and shoulder. 3. ONSET:yesterday 4. PATTERN: intermittent 5. DURATION:Depends 6. SEVERITY: - MODERATE (4-7): interferes with normal activities or awakens from sleep 7. CARDIAC RISK FACTORS: Hx of smoking and strong family history of heart disease No history of angina, prior heart attack; diabetes, high blood pressure, high cholesterol, 8. PULMONARY RISK FACTORS: Currently being treated for PE. No asthma, emphysema, control pills. 9. CAUSE: Patient currently being treated with Eliquis for PE and concerned that blood clot is moving. Family history of this. 10. OTHER SYMPTOMS: Dizziness, sweating/clammy/hands. No nausea, vomiting, sweating, fever, difficulty breathing, cough Protocols used: Chest [id number] [facility] 01-31-2024 Miscellaneous Notes Patient calls for chest pain. Nurse triage recommends call EMS now. Patient will have someone take her to ER at this time. Care advice reviewed. Patient verbalizes understanding. Reason for Disposition [1] Chest pain lasts > 5 minutes AND [2] age > 44 Answer Assessment - Initial Assessment Questions 1. LOCATION: Patient reports right over her chest. 2. RADIATION: Radiates to neck and shoulder. 3. ONSET:yesterday 4. PATTERN: intermittent 5. DURATION:Depends 6. SEVERITY: - MODERATE (4-7): interferes with normal activities or awakens from sleep 7. CARDIAC RISK FACTORS: Hx of smoking and strong family history of heart disease No history of angina, prior heart attack; diabetes, high blood pressure, high cholesterol, 8. PULMONARY RISK FACTORS: Currently being treated for PE. No asthma, emphysema, control pills. 9. CAUSE: Patient currently being treated with Eliquis for PE and concerned that blood clot is moving. Family history of this. 10. OTHER SYMPTOMS: Dizziness, sweating/clammy/hands. No nausea, vomiting, sweating, fever, difficulty breathing, cough Protocols used: Chest [id number] documented in this encounter [facility] 01-27-2024 Telephone encounter Note Prescription Refill Information The patient has been identified by name and date of : Yes Caregiver verified no other encounters exist for this prescription request: Yes Caregiver confirmed with patient/requestor that no other refills are due, in the near future, with this provider at this time: Yes The last office visit in the department: 01/19/2024 Does the patient have a future office visit with this provider/department: No Requested Prescriptions Pending Prescriptions Disp Refills gabapentin (NEURONTIN) 100 mg capsule 45 capsule 0 Sig: Take 1 capsule by mouth every other day for 90 days. Aby Strickland LPN January 27, 2024 11:39 AM [facility] 01-27-2024 Miscellaneous Notes Prescription Refill Information The patient has been identified by name and date of : Yes Caregiver verified no other encounters exist for this prescription request: Yes Caregiver confirmed with patient/requestor that no other refills are due, in the near future, with this provider at this time: Yes The last office visit in the department: 01/19/2024 Does the patient have a future office visit with this provider/department: No Requested Prescriptions Pending Prescriptions Disp Refills gabapentin (NEURONTIN) 100 mg capsule 45 capsule 0 Sig: Take 1 capsule by mouth every other day for 90 days. Aby Strickland LPN January 27, 2024 11:39 AM documented in this encounter [facility] 01-27-2024 Telephone encounter Note Patient calling back said Dr Toth does not take her insurance, assisted with transfer to jacker feeder to get appt set up for Rheumatology. [facility] 01-27-2024 Miscellaneous Notes Patient calling back said Dr Toth does not take her insurance, assisted with transfer to jacker feeder to get appt set up for Rheumatology. Pt prefers to stay local, referrals, OV, lab, demo, insurance cards, faxed to Dr. Toth's office. Pt notified to call and make appt. Nan Bradford MA Please let patient know her lupus panel was abnormal. I have placed an order for her to see rheumatology for evaluation. documented in this encounter [facility] 01-27-2024 Telephone encounter Note Pt prefers to stay local, referrals, OV, lab, demo, insurance cards, faxed to Dr. Toth's office. Pt notified to call and make appt. Nan Bradford MA [facility] 01-26-2024 Telephone encounter Note Please let patient know her lupus panel was abnormal. I have placed an order for her to see rheumatology for evaluation. [facility] 01-19-2024 Note HNO ID: [id number] Author: NGUYEN KURTZ APRN.KENNEY Service: ? Author Type: Nurse Practitioner Type: Progress Notes Filed: 01/19/2024 09:01 Note Text: Chief Complaint Patient presents with: Diarrhea: X 1 week ER F/U: Pulmonary embolism HPI Speedy Blackwood is a 43 year old female who presents here today for Above Complaints.. Patient presents for ER follow up. Patient was diagnosed with PE and started on Eliquis. Patient reports she quit smoking when she was diagnosed with PE. Also reports over the past few months she has had a burning sensation in her right leg that comes and goes. Past medical history, appointments, medications, allergies reviewed. Previous Medical History PAST MEDICAL HISTORY No date: Abdominal pain, right upper quadrant No date: Dysthymic disorder Comment: Depression (non-psychotic) No date: Low iron 02/2014: Lumbosacral radiculopathy at L4 No date: Migraine without aura No date: Nonspecific elevation of levels of transaminase or lactic acid dehydrogenase (LDH) No date: Scoliosis Previous Surgical History PAST SURGICAL HISTORY 12/15/2007: LAPS SURG CHOLECYSTECTOMY W/CHOLANGIOGRAPHY Comment: ? abnormal CBD No date: LIGATE FALLOPIAN TUBE; Bilateral Comment: 2015 No date: PAST SURGICAL HISTORY OF Comment: dental extraction Family History FAMILY HISTORY Problem Relation Age of Onset Alcohol/Drug Mother Alcohol/Drug Father Cancer Mother LIVER CANCER Cancer Father ESOPHAGEAL CANCER Cancer Maternal Grandmother LIVER CANCER Cancer Paternal Uncle LUNG CANCER Diabetes Paternal Grandmother Emphysema Mother Seizures Maternal Grandfather Patient Allergies ALLERGIES No Known Allergies Current Medications Current Outpatient Medications on File Prior to Visit Medication Sig ELIQUIS DVT-PE TREAT 30D START 5 mg (74 tabs) gabapentin (NEURONTIN) 100 mg capsule Take 1 capsule by mouth every other day for 90 days. buPROPion XL (WELLBUTRIN XL) 150 mg 24 hr tablet Take 1 tablet by mouth once daily. cloNIDine HCl (CATAPRES) 0.1 mg tablet Take 0.1 mg by mouth daily at bedtime. FLUoxetine (PROZAC) 20 mg capsule Take 1 capsule by mouth once daily. Cholecalciferol, Vitamin D3, 2,000 unit cap Take 1 capsule by mouth daily at bedtime. L.ACID/L.CASEI/B.BIF/B.KAVYA/FOS (PROBIOTIC BLEND ORAL) Take 1 capsule by mouth once daily. No current facility-administered medications on file prior to visit. Social History Social History Tobacco Use Smoking status: Every Day Current packs/day: 0.50 Average packs/day: 0.5 packs/day for 20.0 years (10.0 ttl pk-yrs) Types: Cigarettes Smokeless tobacco: Never Vaping Use Vaping status: current everyday user Substances: Nicotine, Flavoring Devices: Disposable Substance Use Topics Alcohol use: Yes Comment: rare Drug use: Not Currently Types: Marijuana Review of Symptoms REVIEW OF SYSTEMS SEE HPI EXAM: BP 104/67 Pulse 94 Resp 14 Wt 75.3 kg (166 lb) LMP 08/15/2018 SpO2 95% BMI 28.49 kg/m? General Appearance: Well appearing, alert, in no acute distress, well-hydrated, well nourished.. Lungs: Lungs clear to auscultation. No wheezing, rhonchi, rales.. Heart: RRR without murmur, gallop, or rubs. No ectopy. Abdomen: Normal abdominal exam, Abdomen soft, non-tender. Bowel sounds normal. No masses, organomegaly. Health Maintenance List Pneumococcal Vaccine(1 of 2 - PCV) Never done Anxiety Screening Never done Hepatitis C Screening Never done Colorectal Cancer Screening Never done Mammogram Screening due on 09/15/2023 Covid-19 Vaccine( season) due on 01/15/2024 Influenza Vaccine(1) due on 01/15/2024 Diabetes Screening due on 09/13/2025 Cervical Cancer Screening due on 05/16/2027 Lipid Screening due on 09/14/2027 DTaP,Tdap,Td Vaccine(2 - Td or Tdap) due on 02/19/2032 HIV Screening Completed HPV Vaccine Aged Out Hepatitis B Vaccine Discontinued ASSESSMENT/PLAN: 1. Incontinence of feces, unspecified fecal incontinence type - ICD9: 787.60, ICD10: R15.9 - CONSULT TO GASTROENTEROLOGY 2. Acute pulmonary embolism, unspecified pulmonary embolism type, unspecified whether acute cor pulmonale present (HCC) - ICD9: 415.19, ICD10: I26.99 - APIXABAN 5 MG TABLET - HYPERCOAG DIAG PNL - US LEG VEIN DVT UNL VAS LAB - ALBUTEROL SULFATE HFA 90 MCG/ACTUATION AEROSOL INHALER - INHALATIONAL SPACING DEVICE Nguyen Kurtz APRN.KENNEY [facility] 01-19-2024 History of Present illness Narrative Chief Complaint Patient presents with: Diarrhea: X 1 week ER F/U: Pulmonary embolism HPI Speedy Blackwood is a 43 year old female who presents here today for Above Complaints.. Patient presents for ER follow up. Patient was diagnosed with PE and started on Eliquis. Patient reports she quit smoking when she was diagnosed with PE. Also reports over the past few months she has had a burning sensation in her right leg that comes and goes. Past medical history, appointments, medications, allergies reviewed. Previous Medical History PAST MEDICAL HISTORY No date: Abdominal pain, right upper quadrant No date: Dysthymic disorder Comment: Depression (non-psychotic) No date: Low iron 02/2014: Lumbosacral radiculopathy at L4 No date: Migraine without aura No date: Nonspecific elevation of levels of transaminase or lactic acid dehydrogenase (LDH) No date: Scoliosis Previous Surgical History PAST SURGICAL HISTORY 12/15/2007: LAPS SURG CHOLECYSTECTOMY W/CHOLANGIOGRAPHY Comment: ? abnormal CBD No date: LIGATE FALLOPIAN TUBE; Bilateral Comment: 2015 No date: PAST SURGICAL HISTORY OF Comment: dental extraction Family History FAMILY HISTORY Problem Relation Age of Onset Alcohol/Drug Mother Alcohol/Drug Father Cancer Mother LIVER CANCER Cancer Father ESOPHAGEAL CANCER Cancer Maternal Grandmother LIVER CANCER Cancer Paternal Uncle LUNG CANCER Diabetes Paternal Grandmother Emphysema Mother Seizures Maternal Grandfather Patient Allergies ALLERGIES No Known Allergies Current Medications Current Outpatient Medications on File Prior to Visit Medication Sig ELIQUIS DVT-PE TREAT 30D START 5 mg (74 tabs) gabapentin (NEURONTIN) 100 mg capsule Take 1 capsule by mouth every other day for 90 days. buPROPion XL (WELLBUTRIN XL) 150 mg 24 hr tablet Take 1 tablet by mouth once daily. cloNIDine HCl (CATAPRES) 0.1 mg tablet Take 0.1 mg by mouth daily at bedtime. FLUoxetine (PROZAC) 20 mg capsule Take 1 capsule by mouth once daily. Cholecalciferol, Vitamin D3, 2,000 unit cap Take 1 capsule by mouth daily at bedtime. L.ACID/L.CASEI/B.BIF/B.KAVYA/FOS (PROBIOTIC BLEND ORAL) Take 1 capsule by mouth once daily. No current facility-administered medications on file prior to visit. Social History Social History Tobacco Use Smoking status: Every Day Current packs/day: 0.50 Average packs/day: 0.5 packs/day for 20.0 years (10.0 ttl pk-yrs) Types: Cigarettes Smokeless tobacco: Never Vaping Use Vaping status: current everyday user Substances: Nicotine, Flavoring Devices: Disposable Substance Use Topics Alcohol use: Yes Comment: rare Drug use: Not Currently Types: Marijuana Review of Symptoms REVIEW OF SYSTEMS SEE HPI EXAM: BP 104/67 Pulse 94 Resp 14 Wt 75.3 kg (166 lb) LMP 08/15/2018 SpO2 95% BMI 28.49 kg/m General Appearance: Well appearing, alert, in no acute distress, well-hydrated, well nourished.. Lungs: Lungs clear to auscultation. No wheezing, rhonchi, rales.. Heart: RRR without murmur, gallop, or rubs. No ectopy. Abdomen: Normal abdominal exam, Abdomen soft, non-tender. Bowel sounds normal. No masses, organomegaly. Health Maintenance List Pneumococcal Vaccine(1 of 2 - PCV) Never done Anxiety Screening Never done Hepatitis C Screening Never done Colorectal Cancer Screening Never done Mammogram Screening due on 09/15/2023 Covid-19 Vaccine(4 - 2022- season) due on 01/15/2024 Influenza Vaccine(1) due on 01/15/2024 Diabetes Screening due on 09/13/2025 Cervical Cancer Screening due on 05/16/2027 Lipid Screening due on 09/14/2027 DTaP,Tdap,Td Vaccine(2 - Td or Tdap) due on 02/19/2032 HIV Screening Completed HPV Vaccine Aged Out Hepatitis B Vaccine Discontinued ASSESSMENT/PLAN: 1. \\Incontinence of feces, unspecified fecal incontinence type - ICD9: 787.60, ICD10: R15.9 - CONSULT TO GASTROENTEROLOGY 2. Acute pulmonary embolism, unspecified pulmonary embolism type, unspecified whether acute cor pulmonale present (HCC) - ICD9: 415.19, ICD10: I26.99 - APIXABAN 5 MG TABLET - HYPERCOAG DIAG PNL - US LEG VEIN DVT UNL VAS LAB - ALBUTEROL SULFATE HFA 90 MCG/ACTUATION AEROSOL INHALER - INHALATIONAL SPACING DEVICE Nguyen Kurtz APRN.CLERICAL RECEPTIONIST documented in this encounter [facility] 12-27-2023 Telephone encounter Note Called patient to verify recent mri's (3) were completed and of upcoming follow up appointment to discuss results on 01/03/24. Patient had no questions at this time. [facility] 12-27-2023 Miscellaneous Notes Called patient to verify recent mri's (3) were completed and of upcoming follow up appointment to discuss results on 01/03/24. Patient had no questions at this time. documented in this encounter [facility] 12-22-2023 History of Present illness Narrative Radiology Service Progress Note PATIENT NAME: Speedy Blackwood DATE OF SERVICE: December 22, 2023 TIME: 1:07 PM PATIENT IDENTITY VERIFICATION COMPLETED USING TWO [...] PATIENT PRESENTS WITH AN IMPLANTABLE OR ATTACHED FEEDER OPERATOR: No RADIOLOGY DEPARTMENT: MR; Exam(s) Completed: Head: Routine Brain Spine: Cervical spine and Thoracic spine PERIPHERAL IV DATA: Not applicable SIGNED BY: RT Mely(Dat) December 22, 2023 1:07 PM documented in this encounter [facility] 12-22-2023 Note HNO ID: [id number] Author: ADRIANA ESTEVEZ RT(R) Service: ? Author Type: Technologist Type: Progress Notes Filed: 12/22/2023 13:08 Note Text: Radiology Service Progress Note PATIENT NAME: Speedy Blackwood DATE OF SERVICE: December 22, 2023 TIME: 1:07 PM PATIENT IDENTITY VERIFICATION COMPLETED USING TWO [...] PATIENT PRESENTS WITH AN IMPLANTABLE OR ATTACHED FEEDER OPERATOR: No RADIOLOGY DEPARTMENT: MR; Exam(s) Completed: Head: Routine Brain Spine: Cervical spine and Thoracic spine PERIPHERAL IV DATA: Not applicable SIGNED BY: EREN BooneR) December 22, 2023 1:07 PM [facility] 11-21-2023 Instructions George Hollis DO - 11/21/2023 1:59 AM EDT Images from the original note were not included. Chronic Lumbar Radiculopathy (Leg Pain) Overview: Symptoms of a "pinched nerve" in the leg (lumbar radiculopathy) include numbness, tingling and even weakness. Leg pain is usually worse than back pain. The cause of nerve impingement may include a protruding (herniated) disc, bony or joint overgrowth or both. Lumbar spinal stenosis is a condition which results from narrowing of the spinal canal which contains the lower spinal nerves. This condition typically produces leg symptoms when standing or walking which are relieved by sitting. The prognosis for a full recovery with conservative (non-surgical) treatment is good in most persons. X-rays or scans (MRI or CT) are not required in most patients before starting treatment but may be performed if symptoms aren't improving after about 6 weeks despite medical treatment. Treatment: Pain-relieving anti-inflammatory medications such as ibuprofen or naproxen are recommended. Acetaminophen (Tylenol) is recommended if you cannot take anti-inflammatory medications. Medications effective for nerve pain such as gabapentin (Neurontin), pregabalin (Lyrica) or some antidepressants may be helpful for leg pain. A short course of oral steroids (prednisone or Medrol) may help alleviate severe, acute inflammation. For persistent pain despite oral medications and physical therapy, an epidural corticosteroid injection ("block") may be recommended if an MRI or CT scan confirms nerve impingement ("pinched nerve"). Remaining as active as possible and resuming normal activities are recommended to speed recovery. Physical therapy is recommended for development of an active exercise program. If weakness is developing in the affected leg or if pain is severe despite medical treatment, a surgical consultation may be recommended if an MRI or CT scan confirms nerve impingement. Follow Up See your health care provider if: The pain doesn't improve or worsens You notice increasing weakness in the leg(s) You experience problems with balance or walking You notice difficulty passing urine or controlling your bowels These are warning signs or "red flags" that require prompt, urgent medical attention. SIGNATURE: George Hollis DO PATIENT NAME: Speedy Blackwood DATE: November 21, 2023 TIME: 1:59 AM documented in this encounter [facility] 11-21-2023 Note HNO ID: [id number] Author: GEORGE HOLLIS DO Service: ? Author Type: Physician Type: Progress Notes Filed: 11/23/2023 00:31 Note Text: Spine Care Path Radicular Leg Pain - Chronic (> 12 weeks) Initial Exam SUBJECTIVE HISTORY OF PRESENT ILLNESS: Speedy Blackwood is a 43 year old female who presents with a chief complaint of low back and leg pain and is seen in consultation requested by Dr. Nguyen Kurtz for an opinion regarding low back and leg symptoms.. My final recommendations will be communicated back to the requesting physician by way of shared medical record or letter via US mail. Patient presents today for an opinion on her low back pain complaints. Reports she has dealt with low back pain for many years. Has been dealing with radicular pain complaints for many months. Primary care provider has trialed her on gabapentin and motrin. Patient describes pain and paresthesias radiating to the left lateral thigh. Has had low back pain as above for many years. Worked in [employer] in 2006. Has been dealing with bladder and bowel incontinence. Other Issues Addressed at the Visit Today: None. Precipitating Event: None PAIN EVALUATION No data found in the last 1 encounters. Pain Radiation: into the left thigh Aggravating Factors: Flexion, Standing Alleviating Factors: None Pain Ratio: 50 % back pain, 50 % leg pain Prior Therapy: medications Litigation: No Workers' Compensation: No YELLOW AND BLUE FLAGS No-Neg Attitude; Back Pain is Disabling No-Avoiding Activity (for Fear of Pain) YES-Depression or Anxiety Disorders No-Social Problems No-Substance Use Disorder No-Job Dissatisfaction No-Financial Disincentives Patient Entered Questionnaires 11/17/2023 Spine Questions Pain Location: Lower back Pain Duration: More than 5 years Pain over last 6 months: Every day or nearly every day in the past 6 months Symptoms from neck/cervical spine: Yes Employment Status: Working now Involved in law suit/legal claim: No 11/17/2023 Spine Red Flags Any type of cancer: No Unexplained fever: No Bowel or bladder disfunction: Yes Unintentional weight loss: No Osteoporosis: No 11/17/2023 Neck Questionnaires Benzel Modified MARA Score 14 (Moderate Myelopathy Symptoms) PROMIS Score Percentiles 11/17/2023 Physical Health Physical Function Percentile 31 Sleep Percentile 27* Fatigue Percentile 5 Pain Interference Percentile 16* 11/17/2023 PROMIS SOCIAL ROLE SCORE Social Role Satisfaction Percentile 8 11/17/2023 PROMIS Global Health Scale Physical Health Percentile 4 Mental Health Percentile 26* Percentiles provide an indication of how the patient's score ranks in relation to the general population. Higher percentile rankings indicate better function/quality of life. 50th percentile is the average of the general population and indicates half of respondents had a worse score. Depression Screenin11/17/2023 PHQ-9 Score 14 11/17/2023 PHQ-9 Self-harm Question Question 9 Not at all PHQ-9 Self-Harm (Item 9) response options: 0 Not at all 1 Several days 2 More than half the days 3 Nearly every day PHQ-9 Levels: 0-4 No - mild depression 5-9 Mild depression 10-14 Moderate depression 15-19 Moderately severe depression 20-27 Severe depression ACTIVE PROBLEM LIST Personal History of Tobacco Use, Presenting Hazards to Health Leg Pain Tobacco Abuse Depression Discogenic Pain Ddd (Degenerative Disc Disease), Lumbar Chronic Back Pain PAST MEDICAL HISTORY Diagnosis Date Abdominal pain, right upper quadrant Dysthymic disorder Depression (non-psychotic) Low iron Lumbosacral radiculopathy at L4 02/2014 Migraine without aura Nonspecific elevation of levels of transaminase or lactic acid dehydrogenase (LDH) Scoliosis PAST SURGICAL HISTORY Procedure Laterality Date LAPS SURG CHOLECYSTECTOMY W/CHOLANGIOGRAPHY 12/15/2007 ? abnormal CBD LIGATE FALLOPIAN TUBE Bilateral 2015 PAST SURGICAL HISTORY OF dental extraction Social History Tobacco Use Smoking status: Every Day Packs/day: 0.50 Years: 20.00 Additional pack years: 0.00 Total pack years: 10.00 Types: Cigarettes Smokeless tobacco: Never Vaping Use Vaping Use: current everyday user Substances: Nicotine, Flavoring Devices: Disposable Substance Use Topics Alcohol use: Yes Comment: rare Drug use: Not Currently Types: Marijuana FAMILY HISTORY Problem Relation Age of Onset Alcohol/Drug Mother Alcohol/Drug Father Cancer Mother LIVER CANCER Cancer Father ESOPHAGEAL CANCER Cancer Maternal Grandmother LIVER CANCER Cancer Paternal Uncle LUNG CANCER Diabetes Paternal Grandmother Emphysema Mother Seizures Maternal Grandfather ALLERGIES No Known Allergies CURRENT MEDICATIONS: gabapentin (NEURONTIN) 100 mg capsule Take 1 capsule by mouth every other day for 90 days. cloNIDine HCl (CATAPRES) 0.1 mg tablet Take 0.1 mg by (more content not included)... [facility] 11-21-2023 History of Present illness Narrative Images from the original note were not included. Spine Care Path Radicular Leg Pain - Chronic (> 12 weeks) Initial Exam SUBJECTIVE HISTORY OF PRESENT ILLNESS: Speedy Blackwood is a 43 year old female who presents with a chief complaint of low back and leg pain and is seen in consultation requested by Dr. Nguyen Kurtz for an opinion regarding low back and leg symptoms.. My final recommendations will be communicated back to the requesting physician by way of shared medical record or letter via US mail. Patient presents today for an opinion on her low back pain complaints. Reports she has dealt with low back pain for many years. Has been dealing with radicular pain complaints for many months. Primary care provider has trialed her on gabapentin and motrin. Patient describes pain and paresthesias radiating to the left lateral thigh. Has had low back pain as above for many years. Worked in [employer] in 2006. Has been dealing with bladder and bowel incontinence. Other Issues Addressed at the Visit Today: None. Precipitating Event: None PAIN EVALUATION No data found in the last 1 encounters. Pain Radiation: into the left thigh Aggravating Factors: Flexion, Standing Alleviating Factors: None Pain Ratio: 50 % back pain, 50 % leg pain Prior Therapy: medications Litigation: No Workers' Compensation: No YELLOW & BLUE FLAGS No-Neg Attitude; Back Pain is Disabling No-Avoiding Activity (for Fear of Pain) YES-Depression or Anxiety Disorders No-Social Problems No-Substance Use Disorder No-Job Dissatisfaction No-Financial Disincentives Patient Entered Questionnaires 11/17/2023 Spine Questions Pain Location: Lower back Pain Duration: More than 5 years Pain over last 6 months: Every day or nearly every day in the past 6 months Symptoms from neck/cervical spine: Yes Employment Status: Working now Involved in law suit/legal claim: No 11/17/2023 Spine Red Flags Any type of cancer: No Unexplained fever: No Bowel or bladder disfunction: Yes Unintentional weight loss: No Osteoporosis: No 11/17/2023 Neck Questionnaires Benzel Modified MARA Score 14 (Moderate Myelopathy Symptoms) PROMIS Score Percentiles 11/17/2023 Physical Health Physical Function Percentile 31 Sleep Percentile 27* Fatigue Percentile 5 Pain Interference Percentile 16* 11/17/2023 PROMIS SOCIAL ROLE SCORE Social Role Satisfaction Percentile 8 11/17/2023 PROMIS Global Health Scale Physical Health Percentile 4 Mental Health Percentile 26* Percentiles provide an indication of how the patient's score ranks in relation to the general population. Higher percentile rankings indicate better function/quality of life. 50th percentile is the average of the general population and indicates half of respondents had a worse score. Depression Screenin11/17/2023 PHQ-9 Score 14 11/17/2023 PHQ-9 Self-harm Question Question 9 Not at all PHQ-9 Self-Harm (Item 9) response options: 0 Not at all 1 Several days 2 More than half the days 3 Nearly every day PHQ-9 Levels: 0-4 No - mild depression 5-9 Mild depression 10-14 Moderate depression 15-19 Moderately severe depression 20-27 Severe depression ACTIVE PROBLEM LIST Personal History of Tobacco Use, Presenting Hazards to Health Leg Pain Tobacco Abuse Depression Discogenic Pain Ddd (Degenerative Disc Disease), Lumbar Chronic Back Pain PAST MEDICAL HISTORY Diagnosis Date Abdominal pain, right upper quadrant Dysthymic disorder Depression (non-psychotic) Low iron Lumbosacral radiculopathy at L4 02/2014 Migraine without aura Nonspecific elevation of levels of transaminase or lactic acid dehydrogenase (LDH) Scoliosis PAST SURGICAL HISTORY Procedure Laterality Date LAPS SURG CHOLECYSTECTOMY W/CHOLANGIOGRAPHY 12/15/2007 ? abnormal CBD LIGATE FALLOPIAN TUBE Bilateral 2016 PAST SURGICAL HISTORY OF dental extraction Social History Tobacco Use Smoking status: Every Day Packs/day: 0.50 Years: 20.00 Additional pack years: 0.00 Total pack years: 10.00 Types: Cigarettes Smokeless tobacco: Never Vaping Use Vaping Use: current everyday user Substances: Nicotine, Flavoring Devices: Disposable Substance Use Topics Alcohol use: Yes Comment: rare Drug use: Not Currently Types: Marijuana FAMILY HISTORY Problem Relation Age of Onset Alcohol/Drug Mother Alcohol/Drug Father Cancer Mother LIVER CANCER Cancer Father ESOPHAGEAL CANCER Cancer Maternal Grandmother LIVER CANCER Cancer Paternal Uncle LUNG CANCER Diabetes Paternal Grandmother Emphysema Mother Seizures Maternal Grandfather ALLERGIES No Known Allergies CURRENT MEDICATIONS: gabapentin (NEURONTIN) 100 mg capsule Take 1 capsule by mouth every other day for 90 days. cloNIDine HCl (CATAPRES) 0.1 mg tablet Take 0.1 mg by mouth daily at bedtime. FLUoxetine (PROZAC) 20 mg capsule Take 1 capsule by mouth once daily. Cholecalciferol, Vitamin D3, 2,000 unit cap Take 1 capsule by mouth daily at bedtime. L.ACID/L.CASEI/B.BIF/B.KAVYA/FOS (PROBIOTIC BLEND ORAL) Take 1 capsule by mouth once daily. buPROPion XL (WELLBUTRIN XL) 150 mg 24 hr tablet Take 1 tablet by mouth once daily. REVIEW OF SYSTEMS: Review of Systems Constitutional: Negative Eyes: Negative Hent: Negative Cardiovascular: Negative Respiratory: Negative GI: Negative : Negative Endocrine: Negative Musculoskeletal: Negative Integumentary: Negative Heme/Lymph: Negative Allergy/Immunologic: Negative Neurologic: Negative Psychiatric: Negative Patient's Review of Systems has been reviewed with the patient and updated as appropriate. OBJECTIVE: PHYSICAL EXAM Resp 12 Ht 162.6 cm (5' 4") Wt 76.2 kg (168 lb) LMP 08/15/2018 BMI 28.84 kg/m GENERAL APPEARANCE: Well appearing, well-hydrated, well nourished and alert SKIN: Head, neck, trunk, and extremities dry, intact and without lesions HEART: Peripheral pulses: normal, 2+ bilaterally and symmetric, Edema: No LUNGS: even and non-labored breathing, normal chest excursion LYMPHATICS: No palpable lymphadenopathy in the neck, axilla, or groin NEURO/PSYCH: oriented to time, place, and person, speech normal, mental status intact GAIT: normal, toe walking normal, heel walking normal, some difficulty with tandem gait. POSTURE: Posture and spinal curves are normal PALPATION: paraspinal tenderness; thoracic and lumbar MUSCULOSKELETAL: Extended Low Back & Leg Exam Lumbar Range of Motion Flexion To knees Extension Restricted RIGHT LEFT Lateral Bending Limited Limited Oblique Extension Decreased Decreased Leg Raise Straight Leg Raise Negative Positive; 30 degrees Contralateral Straight Leg Raise Negative Negative DTRs Knee Hyper-reflexive Hyper-reflexive Ankle Absent Absent Medial Hamstring Hyper-reflexive Hyper-reflexive Babinski normal abnormal; Strength of Lower Extremities Extensor Hallux Longus 5/5 5/5 Ankle Dorsiflexion 5/5 5/5 Ankle Plantarflexion 5/5 5/5 Knee Extension 5/5 5/5 Nevaeh's Exam: Deferred Hip Range of Motion RIGHT LEFT Flexion Normal Normal Extension Normal Normal Abduction Normal Normal Adduction Normal Normal Internal Rotation Normal Normal External Rotation Normal Normal Hip Exam RIGHT LEFT FELIPE Exam Normal Normal Trochanteric Bursa Tenderness Normal Normal Gaenslen's Maneuver Normal Normal Guero's Test (IT-Band Pathology) Normal Normal @[id number]@ Cervical Range of Motion Flexion Normal Extension Restricted RIGHT LEFT Rotation Limited ROM with pain Limited ROM with pain Lateral Bend Limited ROM with pain Limited ROM with pain Upper Body Reflex Exam RIGHT LEFT Reflex Status Reflex Status Biceps 3+ Brisk 3+ Brisk Triceps 2+ Normal 2+ Normal Brachioradialis 3+ Brisk 3+ Brisk Inverted Radial 3+ Brisk 3+ Brisk Kennedy's Sign absent present Upper Extremity Strength RIGHT LEFT Strength (MMT) Strength (MMT) Shoulder Abduction 5/5 5/5 Biceps 5/5 5/5 Triceps 5/5 5/5 Resisted Suppination 5/5 5/5 Wrist Extension 5/5 5/5 Interossei 5/5 5/5 Shoulder Range of Motion RIGHT LEFT Flexion Normal Normal Extension Normal Normal Abduction Normal Normal Adduction Normal Normal Internal Rotation Normal Normal External Rotation Normal Normal Shoulder Tests N/A NEUROSENSORY: On sensory exam patient with evidence of left hemisensory deficits not sparing the face. Neuro Tests: None Data Review: Lumbar MRI: Lumbar MRI imaging there is evidence of degenerative disc changes at the L4-L5 and L5-S1 level with posterior annular changes likely suggesting annular tears. No significant foraminal narrowing ASSESSMENT/PLAN (R29.818) Hemisensory deficit (primary encounter diagnosis) Comment: On exam patient with evidence of left hemisensory deficits not sparing the face. This in combination with her numerous other pain complaints, hyperreflexia in the upper and lower limbs and some balance deficits are concerning for potential central nervous system process. In light of these findings we will schedule the patient for a cervical, thoracic and brain MRI. In light of patient's upper motor neuron findings advised her at this time do not see any clear indication for physical therapy until we have a clear understanding of her underlying neurologic deficits. Plan: MRI CERVICAL SPINE WO IVCON, MRI THORACIC SPINE WO IVCON, MRI BRAIN WO IVCON (R29.2) Hyperreflexia Comment: Hyperreflexia in the bilateral upper and lower limbs. Findings may potentially suggest cervical myelopathy versus potential intracranial process. Plan: MRI CERVICAL SPINE WO IVCON, MRI THORACIC SPINE WO IVCON, MRI BRAIN WO IVCON (R26.89) Balance disorder Comment: On exam patient with difficulty performing tandem gait. Again potentially related to central nervous system process. Will review cervical thoracic and brain MRI imaging and in the future we will discuss further diagnostic or treatment recommendations. Plan: MRI CERVICAL SPINE WO IVCON, MRI THORACIC SPINE WO IVCON, MRI BRAIN WO IVCON (M48.02) Spinal stenosis of cervical region Comment: In light of hyperreflexia in the bilateral upper and lower limbs cannot rule out potential for cervical myelopathy or central canal stenosis. Will also rule out any potential for Chiari malformation or other cord pathology. Plan: MRI CERVICAL SPINE WO IVCON (M54.6) Midline thoracic back pain, unspecified chronicity Comment: In addition to her cervical lumbar spine pain complaints has a large deal of central thoracic spine pain. Plan: MRI THORACIC SPINE WO IVCON Imaging Ordered: For possible Cervical Myelopathy due to presence of red flags detailed in HPI and myelopathic exam. Hemisensory deficits and hyperreflexia suggest additional imaging of the brain and thoracic spine SIGNATURE: George Hollis DO PATIENT NAME: Speedy Blackwood DATE: November 21, 2023 TIME: 1:59 AM CC: Sent electronically Nguyen Kurtz [id number] [id number] documented in this encounter [facility] 10-19-2023 Note Patient Outreach (IN TMMN) JAISONSPEEDY Daugherty ([id number]) 1980 F [employer] Date Time Provider Department 10/19/23 NGUYEN KURTZ During your visit today, we recorded the following information about you: Allergies As of Date: 10/19/2023 (No Known Allergies) Date Reviewed: 07/29/2023 Reviewed by: Pratibha Ha MA - Fully Assessed Visit Diagnosis:Encounter for screening mammogram for breast cancer [Z12.31] Order(s):[facility] SCREENING [[id number]] Order #: [id number] FUTURE Prescriptions as of 10/24/2023 - gabapentin (NEURONTIN) 100 mg capsule Take 1 capsule by mouth every other day for 90 days. - buPROPion XL (WELLBUTRIN XL) 150 mg 24 hr tablet Take 1 tablet by mouth once daily. - cloNIDine HCl (CATAPRES) 0.1 mg tablet Take 0.1 mg by mouth daily at bedtime. - FLUoxetine (PROZAC) 20 mg capsule Take 1 capsule by mouth once daily. - Cholecalciferol, Vitamin D3, 2,000 unit cap Take 1 capsule by mouth daily at bedtime. - L.ACID/L.CASEI/B.BIF/B.KAVYA/FOS (PROBIOTIC BLEND ORAL) Take 1 capsule by mouth once daily. Problem List As Of Date 10/19/2023 Noted Resolved Cholelithiasis NOS [K80.20] 10/02/2007 06/28/2011 Abdominal pain, right upper quadrant [R10.11] 06/28/2011 Elev transaminase/LDH [R74.01, R74.02] 06/28/2011 Personal history of tobacco use, presenting haz*06/28/2011 SUPRF HIGH RISK NEC [V23.89] [O09.899]07/26/2011 11/22/2013 Leg pain [M79.606] 08/31/2011 Tobacco abuse [Z72.0] 12/26/2013 Depression [F32.A] 12/26/2013 Discogenic pain [M54.9] 06/19/2014 DDD (degenerative disc disease), lumbar [M51.36]06/19/2014 Chronic back pain [M54.9, G89.29] 06/19/2014 Encounter Status:Closed by VLAD OJEDAUSEDat on 10/24/23 [facility] 09-01-2023 Miscellaneous Notes Pt notified and will call back to schedule Pratibha Ha MA Please let patient know MRI shows mild narrowing of the spine. I would like her to schedule with spine, ortho and pt as previously instructed. documented in this encounter [facility] 08-31-2023 History of Present illness Narrative Radiology Service Progress Note DATE OF SERVICE: August 31, 2023 TIME: 9:22 AM PATIENT IDENTITY VERIFICATION COMPLETED USING TWO (2) STANDARD IDENTIFIERS: Name and Date of confirmed by patient verbally. FALL SCREENING: Has the patient had 2 falls in the last year or 1 fall with injury or currently using an Ambulatory Assistive Device (Walker, Cane, Wheelchair, Crutches, etc.)? No PATIENT GENDER DATA: Female. status: : No status: NO. PATIENT RELEVANT IMPLANT DATA REVIEWED: Yes PATIENT PRESENTS WITH AN IMPLANTABLE OR ATTACHED FEEDER OPERATOR: No ALLERGIES: Reviewed and unchanged CONTRAST ALLERGY: NO. EXAM: MRI - CONTRAST TYPE: GROUP II PERIPHERAL IV DATA: Ambulatory: A peripheral IV was started in the Left antecubital site with a Angio cath: 22 gauge. RADIOLOGY DEPARTMENT: MR; Exam(s) Completed: Spine: Lumbar spine SIGNATURE: RT Mely(R) PATIENT NAME: Speedy Blackwood DATE: August 31, 2023 TIME: 9:22 AM documented in this encounter [facility] 08-08-2023 Miscellaneous Notes Protocol recommends go to the ER now. Pt states she has someone to drive her. Care plan reviewed with patient. Patient voices understanding. Advised patient that if symptoms get worse to call 911. Reason for Disposition [1] Chest pain (or "angina") comes and goes AND [2] is happening more often (increasing in frequency) or getting worse (increasing in severity) (Exception: Chest pains that last only a few seconds.) Answer Assessment - Initial Assessment Questions 1. LOCATION: It hurts in the lower sternum. 2. RADIATION: Denies the pain going anywhere else. 3. ONSET: The chest pain began this morning. 4. PATTERN: The pain comes and goes, and had gotten worse over time. 5. DURATION: Last time it lasted 10-15 min. 6. SEVERITY: - MILD (1-3): doesn't interfere with normal activities - MODERATE (4-7): interferes with normal activities or awakens from sleep - SEVERE (8-10): excruciating pain, unable to do any normal activities States she isn't having pain right now, but when she was having the chest pain 8-9/10 dull squeezing. 7. CARDIAC RISK FACTORS: Pt denies any history of heart problems or risk factors for heart disease such as angina, prior heart attack; diabetes, high blood pressure, high cholesterol, or strong family history of heart disease She does states she is trying to quit smoking and was put on Wellbutrion. 8. PULMONARY RISK FACTORS: Pr denies any history of lung disease such as blood clots in lung, asthma, emphysema. Pt is on control pills. 9. CAUSE: Pt thinks Wellbutrin may be causing the chest pain. 10. OTHER SYMPTOMS: Pt denies dizziness, nausea, vomiting, sweating, fever, or cough. Pt reports difficulty breathing especially when having chest pain. 11. : Denies states last period was the end of June. Protocols used: Chest [id number] documented in this encounter [facility] 07-29-2023 History of Present illness Narrative Chief Complaint Patient presents with: bowel incontinence: X 2 months HPI Speedy Blackwood is a 42 year old female who presents here today for Above Complaints.. Patient presents for bowel incontinence x2 months. Patient reports it has worsened over the past few days since having her uterine ablation. Patient reports bowel incontinence which had been occurring only at night. Since her uterine ablation she has had occurrences of bowel incontinence during the day as well. Patient reports she is unaware of when occurs only knows because her significant other alerts her. Patient reports some intermittent bladder incontinence as well. Past medical history, appointments, medications, allergies reviewed. [...] on File Prior to Visit Medication Sig gabapentin (NEURONTIN) 100 mg capsule Take 1 capsule by mouth every other day for 90 days. buPROPion XL (WELLBUTRIN XL) 150 mg 24 hr tablet Take 1 tablet by mouth once daily. cloNIDine HCl (CATAPRES) 0.1 mg tablet Take 0.1 mg by mouth daily at bedtime. FLUoxetine (PROZAC) 20 mg capsule Take 1 [...] REVIEW OF SYSTEMS SEE HPI EXAM: BP 102/68 Pulse 82 Resp 16 Wt 76.2 kg (168 lb) LMP 08/15/2018 BMI 28.84 kg/m General Appearance: Well appearing, alert, in no acute distress, well-hydrated, well nourished.. Abdomen: Normal abdominal exam, Abdomen soft, non-tender. Bowel sounds normal. No masses, organomegaly. Health Maintenance List Hepatitis C Screening Never done Mammogram Screening due on 09/15/2023 Pneumococcal Vaccine(1 of 2 - PCV) due on 09/14/2023 Influenza Vaccine(1) due on 11/13/2023 Covid-19 Vaccine(4 - 2022- season) due on 03/17/2024 Pap Testing due on 05/16/2027 HPV Testing due on 05/16/2027 DTaP,Tdap,Td Vaccine(2 - Td or Tdap) due on 02/19/2032 HIV Screening Completed HPV Vaccine Aged Out Hepatitis B Vaccine Discontinued ASSESSMENT/PLAN: 1. Chronic low back pain without sciatica, unspecified back pain laterality - ICD9: 724.2, 338.29, ICD10: M54.50, G89.29 (primary diagnosis) - MRI LUMBAR SPINE WO/W IVCON - IV CONTRAST (RADIOLOGY PROCEDURE) 2. Radiculopathy of lumbar region - ICD9: 724.4, ICD10: M54.16 - PT consult - MRI- see orders - MRI LUMBAR SPINE WO/W IVCON - IV CONTRAST (RADIOLOGY PROCEDURE) 3. Urinary and bowel incontinence - ICD9: 788.30, 787.60, ICD10: R32, R15.9 - MRI LUMBAR SPINE WO/W IVCON - IV CONTRAST (RADIOLOGY PROCEDURE) - CONSULT TO PHYSICAL THERAPY Nguyen Kurtz APRN.CLERICAL RECEPTIONIST documented in this encounter [facility] 07-15-2023 Miscellaneous Notes The following approved medication requests have been transmitted electronically. Requested Prescriptions Signed Prescriptions Disp Refills gabapentin (NEURONTIN) 100 mg capsule 45 capsule 0 Sig: Take 1 capsule by mouth every other day for 90 days. Authorizing Provider: MADELINE TRIPLETT PA-C Patient states she is still taking this medication please advise. Patient has been identified by name and date of : Yes Disp Refills Start End gabapentin (NEURONTIN) 100 mg capsule (Discontinued) RX INSTRUCTIONS: Patient aware RX will be sent to pharmacy. No need to notify patient. Edilma Escobar documented in this encounter [facility] 06-20-2023 History of Present illness Narrative Radiology Service Progress Note PATIENT NAME: Speedy Blackwood DATE OF SERVICE: June 20, 2023 TIME: [...] PATIENT PRESENTS WITH AN IMPLANTABLE OR ATTACHED FEEDER OPERATOR: No RADIOLOGY DEPARTMENT: General X-ray: Exam(s) Completed: Spine X-Ray(s): Lumbar AP / LAT / L5-S1 / FLEX-EXT PERIPHERAL IV DATA: Not applicable SIGNED BY: RT Kate(R) June 20, 2023 9:22 AM documented in this encounter [facility] 06-20-2023 History of Present illness Narrative Chief Complaint Patient presents with: Back Pain: Low back pain X 1 month HPI Speedy Blackwood is a 42 year old female who presents here today for Above Complaints.. Patient presents for low back pain. Patient has chronic low back pain and lumbar radiculopathy and reports worsening back pain for the last month. . Patient requesting wellbutrin for smoking cessation. Patient wanting to go on HRT for menopause however WATER POLLUTION SPECIALIST wants her to quit smoking first. Past [...] given - BUPROPION XL 150 MG TAB Nguyen Kurtz APRN.CLERICAL RECEPTIONIST documented in this encounter [facility] 06-14-2023 Note [facility] Pap Smear Specimen Adequacy June 14, 2023 12:22pm See comment Satisfactory for evaluation. Endocervical and/or squamousmetaplastic cells (endocervical component) are present. Comment on above: Satisfactory for ilda luation. Endocervical and/or squamousmetaplastic cells (endocervical component) are present. 06-14-2023 Note [facility] Pap Smear Specimen Adequacy June 14, 2023 12:22pm See comment Satisfactory for evaluation. Endocervical and/or squamousmetaplastic cells (endocervical component) are present. Comment on above: Satisfactory for ilda luation. Endocervical and/or squamousmetaplastic cells (endocervical component) are present. 06-14-2023 Note [facility] Pap Smear Specimen Adequacy June 14, 2023 1:22pm See comment Satisfactory for evaluation. Endocervical and/or squamousmetaplastic cells (endocervical component) are present. Comment on above: Satisfactory for ilda luation. Endocervical and/or squamousmetaplastic cells (endocervical component) are present. 03-07-2023 Telephone encounter Note [facility] 01/24/23 03/17/23 Edilma Orellana MA [facility] 03-07-2023 Miscellaneous Notes [facility] 01/24/23 03/17/23 Edilma Orellana MA Patient has been identified by name and date of : Yes Requested Prescriptions Pending Prescriptions Disp Refills gabapentin (NEURONTIN) 100 mg capsule 90 capsule 0 Sig: Take 1 capsule by mouth every other day for 180 days. RX INSTRUCTIONS: Patient aware RX will be sent to pharmacy. No need to notify patient. Edilma Escobar documented in this encounter [facility] 03-07-2023 Telephone encounter Note Patient has been identified by name and date of : Yes Requested Prescriptions Pending Prescriptions Disp Refills gabapentin (NEURONTIN) 100 mg capsule 90 capsule 0 Sig: Take 1 capsule by mouth every other day for 180 days. RX INSTRUCTIONS: Patient aware RX will be sent to pharmacy. No need to notify patient. Edilma James Pss [facility] Work Phone: 01-24-2023 History of Present illness Narrative Radiology Service Progress Note PATIENT NAME: Speedy Blackwood DATE OF SERVICE: January 24, 2023 [...] RT Kate(R) January 24, 2023 2:07 PM documented in this encounter [facility] 11-03-2022 Miscellaneous Notes The following approved medication requests have been transmitted electronically. Requested Prescriptions Signed Prescriptions Disp Refills FLUoxetine (PROZAC) 20 mg capsule 30 capsule 3 Sig: Take 1 capsule by mouth once daily. Authorizing Provider: DOUG BARKER MD Patient has been identified by [...] once daily. Please review and advise. Lulu Esteves Pss documented in this encounter [facility] 09-23-2022 Miscellaneous Notes Patient calls and notified of results and providers instructions. Patient verbalizes understanding. Patient called from the [phone] number. No phone number update at this time. Shawn Birch RN TC to patient but line beeps and says "the number you reached has been disconnected". Patient has not logged in to since 2011 and therefore can not send message. Letter printed and mailed to patients address informing to contact office for recent lab results. BOOKER Daley Call placed to patient with no answer. Message left for patient to return call and ask to speak to a triage nurse to receive provider message. Shawn Birch RN Please let patient know her triglycerides are high and she should decrease the amount of processed foods she eats. Patient also has elevated WBC which could be from inflammation with her current back problems. I would like her to recheck her CBC in a month. The order is placed and she may do this at her convenience. documented in this encounter [facility] 09-15-2022 Miscellaneous Notes Pt notified of same. Rashard Lombardo LPN ----- Message from Madeline Triplett PA-C sent at 09/15/2022 11:33 AM EDT ----- Normal mammogram. Repeat in 1 year. documented in this encounter [facility] 09-15-2022 Miscellaneous Notes September 15, 2022 PID: [id number] Speedy Blackwood [address] [place] [address] Dear Ms. Blackwood, We are pleased to [...] report will be kept on file at [facility] as part of your permanent medical record and are available for your continuing care. Thank you for allowing us to help in meeting your health care needs. Sincerely, Dr. Medrano Interpreting Radiologist [facility] (Normal over 40) documented in this encounter [facility] 09-13-2022 Instructions Nguyen Kurtz APRN.CNP - 09/13/2022 4:15 PM EDT Continue current medications Schedule mammogram Schedule schedule with Dr. Gutierrez Complete labs Follow up in 6 months documented in this encounter [facility] 09-13-2022 History of Present illness Narrative Chief Complaint No chief complaint on file. HPI Speedy R Blackwood is a 42 year old female who presents here today for Above Complaints.. [facility]. Patient reports that she follows [...] No history of dysuria, frequency or incontinence INSPECTOR PLATING: Negative for abnormal vaginal bleeding, abnormal vaginal [...] diet of 1000 mg/day for under 50, 0756-1747 mg/day for 50+ - Discussed need and [...] ICD10: F32.89 - BUSPIRONE 10 MG TABLET Nguyen Kurtz APRN.KENNEY documented in this encounter [facility] 07-26-2011 History of Past i llness Narrative Problem Noted Date Resolved Date SUPRF HIGH RISK NEC [V23.89] 2 11/22/2013 Calculus of gallbladder with out mention of cholecystitis or obstruction 10/02/2007 06/28/2011 Abdominal pain, right upper quadrant 06/28/2011 Nonspecific elevation of lev els of transaminase or lactic acid dehydrogenase (LDH) 06/28/2011 documented as of this encounter (statuses as of 09/14/2022) [facility] History of Past illness Narrative* Problem Noted Date Resolved Date SUPRF HIGH RISK NEC [V23.89] 2 11/22/2013 Calculus of gallbladder with out mention of cholecystitis or obstruction 10/02/2007 06/28/2011 Abdominal pain, right upper quadrant 06/28/2011 Nonspecific elevation of lev els of transaminase or lactic acid dehydrogenase (LDH) 06/28/2011 documented as of this encounter (statuses as of 09/15/2022) [facility] History of Past illness Narrative* Problem Noted Date Resolved Date SUPRF HIGH RISK NEC [V23.89] 2 11/22/2013 Calculus of gallbladder with out mention of cholecystitis or obstruction 10/02/2007 06/28/2011 Abdominal pain, right upper quadrant 06/28/2011 Nonspecific elevation of lev els of transaminase or lactic acid dehydrogenase (LDH) 06/28/2011 documented as of this encounter (statuses as of 09/17/2022) [facility] History of Past illness Narrative* Problem Noted Date Resolved Date SUPRF HIGH RISK NEC [V23.89] 2 11/22/2013 Calculus of gallbladder with out mention of cholecystitis or obstruction 10/02/2007 06/28/2011 Abdominal pain, right upper quadrant 06/28/2011 Nonspecific elevation of lev els of transaminase or lactic acid dehydrogenase (LDH) 06/28/2011 documented as of this encounter (statuses as of 09/24/2022) [facility] History of Past illness Narrative* Problem Noted Date Resolved Date SUPRF HIGH RISK NEC [V23.89] 2 11/22/2013 Calculus of gallbladder with out mention of cholecystitis or obstruction 10/02/2007 06/28/2011 Abdominal pain, right upper quadrant 06/28/2011 Nonspecific elevation of lev els of transaminase or lactic acid dehydrogenase (LDH) 06/28/2011 documented as of this encounter (statuses as of 11/04/2022) [facility] History of Past illness Narrative* Problem Noted Date Diagnosed Date Resolved Date SUPRF HIGH RISK NEC [V23.89] 07/26/2011 11/22/2013 Calculus of gallbladder with out mention of cholecystitis or obstruction 10/02/2007 06/28/2011 Abdominal pain, right upper quadrant 06/28/2011 Nonspecific elevation of lev els of transaminase or lactic acid dehydrogenase (LDH) 06/28/2011 documented as of this encounter (statuses as of 06/20/2023) [facility] History of Past illness Narrative* Problem Noted Date Diagnosed Date Resolved Date SUPRF HIGH RISK NEC [V23.89] 07/26/2011 11/22/2013 Calculus of gallbladder with out mention of cholecystitis or obstruction 10/02/2007 06/28/2011 Abdominal pain, right upper quadrant 06/28/2011 Nonspecific elevation of lev els of transaminase or lactic acid dehydrogenase (LDH) 06/28/2011 documented as of this encounter (statuses as of 07/15/2023) [facility] History of Past illness Narrative* Problem Noted Date Diagnosed Date Resolved Date SUPRF HIGH RISK NEC [V23.89] 07/26/2011 11/22/2013 Calculus of gallbladder with out mention of cholecystitis or obstruction 10/02/2007 06/28/2011 Abdominal pain, right upper quadrant 06/28/2011 Nonspecific elevation of lev els of transaminase or lactic acid dehydrogenase (LDH) 06/28/2011 documented as of this encounter (statuses as of 07/29/2023) [facility] History of Past illness Narrative* Problem Noted Date Diagnosed Date Resolved Date SUPRF HIGH RISK NEC [V23.89] 07/26/2011 11/22/2013 Calculus of gallbladder with out mention of cholecystitis or obstruction 10/02/2007 06/28/2011 Abdominal pain, right upper quadrant 06/28/2011 Nonspecific elevation of lev els of transaminase or lactic acid dehydrogenase (LDH) 06/28/2011 documented as of this encounter (statuses as of 08/08/2023) [facility] History of Past illness Narrative* Problem Noted Date Diagnosed Date Resolved Date SUPRF HIGH RISK NEC [V23.89] 07/26/2011 11/22/2013 Calculus of gallbladder with out mention of cholecystitis or obstruction 10/02/2007 06/28/2011 Abdominal pain, right upper quadrant 06/28/2011 Nonspecific elevation of lev els of transaminase or lactic acid dehydrogenase (LDH) 06/28/2011 documented as of this encounter (statuses as of 09/01/2023) [facility] History of Past illness Narrative* Problem Noted Date Diagnosed Date Resolved Date SUPRF HIGH RISK NEC [V23.89] 07/26/2011 11/22/2013 Calculus of gallbladder with out mention of cholecystitis or obstruction 10/02/2007 06/28/2011 Abdominal pain, right upper quadrant 06/28/2011 Nonspecific elevation of lev els of transaminase or lactic acid dehydrogenase (LDH) 06/28/2011 documented as of this encounter (statuses as of 09/02/2023) [facility] Appointment Date:04/21/2023 09:00:00 AM Scheduled Provider:CHRISTOPHER VARGAS MD Location:[facility] Appointment Type:[facility] Diagnostic Tests Pending * Rapid Plasma Reagin Test 10/14/22 Future Scheduled Tests Laboratory* Lipid Profile 02/18/22 * Complete Metabolic Panel 02/18/22 [facility] Evaluation + Plan note Future Appointments Appointment Date:04/21/2023 09:00:00 AM Scheduled Provider:CHRISTOPHER VARGAS MD Location:[facility] Appointment Type:[facility] Future Scheduled Tests Laboratory* Lipid Profile 02/18/22 * Complete Metabolic Panel 02/18/22 [facility] Evaluation + Plan note Future Appointments Appointment Date:11/25/2022 10:00:00 AM Scheduled Provider:CHRISTOPHER VARGAS MD Location:[facility] Appointment Type: OV Appointment Date:04/21/2023 09:00:00 AM Scheduled Provider:CHRISTOPHER VARGAS MD Location:[facility] Appointment Type:[facility] Future Scheduled Tests Laboratory* Lipid Profile 02/18/22 * Complete Metabolic Panel 02/18/22 [facility] Evcisdkaol noteNo assessment information available [facility] Work Phone: evaluation note* Diagnosis Screening for diabetes mellitus- Primary Encounter for lipid screening for cardiovascular disease Screening for lipoid disorders Encounter for wellness examination in adult Lumbar radiculopathy Thoracic or lumbosacral neuritis or radiculitis, unspecified Other depression Encounter for screening mammogram for malignant neoplasm of breast Other screening mammogram [facility] Diagnosis Leukocytosis, unspecified type- Primary [facility]* Diagnosis Onset Date Resolution Status Herniation of intervertebral disc between L4 and L5 acute Lumbar facet joint pain acut e Exposure to chlamydia acute [facility] Work Phone: Evaluation note* Diagnosis moderate depression Moderate anxiety [facility] Diagnosis Onset Date Resolution Status Encounter for routine gynecological examination noneactive [facility] Work Phone: Evaluation note* Diagnosis Lumbar radiculopathy- Primary Thoracic or lumbosacral neuritis or radiculitis, unspecified Chronic midline low back pain without sciatica Encounter for smoking cessation counseling Counseling on substance use and abuse [facility]* Diagnosis Lumbar radiculopathy Thoracic or lumbosacral neuritis or radiculitis, unspecified [facility] Diagnosis Onset Date Resolution Status Encounter for routine gynecological examination noneactive Menorrhagia acute Menorrhagia acute [facility] Work Phone: Evaluation note* Diagnosis Chronic low back pain without sciatica, unspecified back pain laterality- Primary Radiculopathy of lumbar region Thoracic or lumbosacral neuritis or radiculitis, unspecified Urinary and bowel incontinence Unspecified urinary incontinence [facility] Diagnosis Chronic low back pain without sciatica, unspecified back pain laterality Radiculopathy of lumbar region Thoracic or lumbosacral neuritis or radiculitis, unspecified Urinary and bowel incontinence Unspecified urinary incontinence [facility] Diagnosis Encounter for screening mammogram for breast cancer [facility] Diagnosis Hemisensory deficit- Primary Other symptoms involving nervous and musculoskeletal systems Hyperreflexia Abnormal reflex Balance disorder Other symptoms involving nervous and musculoskeletal systems Spinal stenosis of cervical region Spinal stenosis in cervical region Midline thoracic back pain, unspecified chronicity [facility] Diagnosis Hemisensory deficit Other symptoms involving nervous and musculoskeletal systems Hyperreflexia Abnormal reflex Balance disorder Other symptoms involving nervous and musculoskeletal systems [facility] Diagnosis Hemisensory deficit Other symptoms involving nervous and musculoskeletal systems Hyperreflexia Abnormal reflex Balance disorder Other symptoms involving nervous and musculoskeletal systems Spinal stenosis of cervical region Spinal stenosis in cervical region Midline thoracic back pain, unspecified chronicity [facility] Diagnosis Incontinence of feces, unspecified fecal incontinence type- Primary Acute pulmonary embolism, unspecified pulmonary embolism type, unspecified whether acute cor pulmonale present (HCC) [facility] Diagnosis Lumbar radiculopathy Thoracic or lumbosacral neuritis or radiculitis, unspecified [facility] Diagnosis Lupus anticoagulant positive- Primary Other and unspecified nonspecific immunological findings [facility] Diagnosis Lumbar radiculopathy Thoracic or lumbosacral neuritis or radiculitis, unspecified [facility] Diagnosis Night sweats Generalized hyperhidrosis Acute pain of left knee [facility] Diagnosis Lupus anticoagulant positive- Primary Other and unspecified nonspecific immunological findings Acute pulmonary embolism, unspecified pulmonary embolism type, unspecified whether acute cor pulmonale present (HCC) [facility] Diagnosis Rash- Primary Rash and other nonspecific skin eruption [facility] Diagnosis Acute pulmonary embolism, unspecified pulmonary embolism type, unspecified whether acute cor pulmonale present (HCC)- Primary Lupus anticoagulant positive Other and unspecified nonspecific immunological findings Encounter for screening mammogram for breast cancer Special screening examination for viral disease Special screening examination for unspecified viral disease [facility] Diagnosis Cellulitis of skin- Primary Cellulitis and abscess of unspecified site [facility]* Diagnosis Generalized skin cysts- Primary Sebaceous cyst documented in this encounter [facility] course Narrative No data available for this section [facility] Hospital Discharge instructions Additional Instructions Once the foam falls off on its own you can cover the healing area with Vaseline and a bandage. Please follow-up with occupational health. If bleeding reoccurs hold direct pressure for 15 minutes without letting go.[facility] Work Phone: Hospital Discharge instructions No data available for this section [facility] Hospital Discharge instructions Additional Instructions Implant Used?: [facility] Work Phone: Progress note No data available for this section [facility] Reason for referral (narrative)* Diagnostic Procedure Only (Routine) - Authorized Specialty Diagnoses / Procedures Referred By Mike t Referred To Contact [facility] Diagnoses Encounter for screening mammogram for malignant neoplasm of breast Procedures HENRI SCREENING SCREENING MAMMOGRAPHY BI 2-VIEW BREAST INC CAD Nguyen Kurtz APRN.CNP [address] [place] [address] [facility] [address] [place] [address] Referral ID Status Reason Start Date Expiration Date Visits Requested Visits Authorized [id number] Authorized Auto-Generat ed Referral 09/13/2022 10/13/2023 1 1 * Transition of Care (Routine) - Ref Not Required Specialty Diagnoses / Procedures Referred By Mike malone Referred To Contact Orthopedics Diagnoses Lumbar radiculopathy Procedures CONSULT PANEL TO ORTHOPAEDICS Nguyen Kurtz APRN.CNP [address] [place] [address] Doug Gutierrez [address] [address] Referral ID Status Reason Start Date Expiration Date Visits Requested Visits Authorized [id number] Ref Not Required PCP Requested Referral 09/13/2022 09/13/2023 1 1 [facility] Diagnostic Procedure Only (Routine) - Pending Review Specialty Diagnoses / Procedures Referred By Mike t Referred To Contact [facility] Diagnoses Encounter for screening mammogram for breast cancer Procedures HENRI SCREENING SCREENING MAMMOGRAPHY BI 2-VIEW BREAST INC CAD Nguyen Kurtz APRN.CLERICAL RECEPTIONIST [address] [place] [address] [facility] [address] [place] [address] Referral ID Status Reason Start Date Expiration Date Visits Requested Visits Authorized [id number] Pending Review Auto-Generat ed Referral 10/19/2023 11/17/2024 1 1 [facility] for referral (narrative)* Outpatient Procedure (Urgent) - New Request Specialty Diagnoses / Procedures Referred By Contac t Referred To Contact [facility] Diagnoses Acute pulmonary embolism, unspecified pulmonary embolism type, unspecified whether acute cor pulmonale present (HCC) Procedures US LEG VEIN DVT UNL VAS LAB DUP-SCAN XTR VEINS UNILATERAL/LIMITED STUDY Nguyen Kurtz APRN.CLERICAL RECEPTIONIST [address] [place] [id number] [facility] [address] [place] [address] Referral ID Status Reason Start Date Expiration Date Visits Requested Visits Authorized [id number] New Request Auto-Generat ed Referral 01/19/2024 01/18/2025 1 1 * Consult, Test, Treat (Routine) - Authorized Specialty Diagnoses / Procedures Referred By Contac t Referred To Contact Gastroenterology Diagnoses Incontinence of feces, unspecified fecal incontinence type Procedures CONSULT TO GASTROENTEROLOGY OFFICE/OUTPATIENT NEW HIGH MDM 60 MINUTES Nguyen Kurtz APRN.CNP [address] [place] [address] Referral ID Status Reason Start Date Expiration Date Visits Requested Visits Authorized [id number] Authorized PCP Requested Referral 01/19/2024 01/18/2025 1 1 [facility] for referral (narrative)* Diagnostic Procedure Only (Routine) - Closed Specialty Diagnoses / Procedures Referred By Contac t Referred To Contact XR IMAGING Diagnoses Lumbar radiculopathy Procedures XR LUMBAR MOTION 4V AP/LAT/ FLEX/EXT RADEX SPINE LUMBOSACRAL MINIMUM 4 VIEWS Nguyen Kurtz APRN.CLERICAL RECEPTIONIST [address] [place] [address] [place] [address] Referral ID Status Reason Start Date Expiration Date V isits Requested Visits Authorized [id number] Closed Auto-Generate d Referral 06/20/2023 07/19/2024 1 1 [facility] for referral (narrative)* Diagnostic Procedure Only (Routine) - Closed Specialty Diagnoses / Procedures Referred By Contac t Referred To Contact XR IMAGING Diagnoses Acute pain of left knee Procedures XR KNEE GENERAL 4V AP BOTH/PA BOTH/LAT/MERC LEFT RADIOLOGIC EXAM KNEE COMPLETE 4/MORE VIEWS Nguyen Kurtz APRN.CLERICAL RECEPTIONIST [address] [place], [place] [id number] [place] [address] Referral ID Status Reason Start Date Expiration Date V isits Requested Visits Authorized [id number] Closed Auto-Generate d Referral 01/24/2023 02/23/2024 1 1 [facility] for referral (narrative)No reason for referral information [facility] Work Phone: [facility] Narrative* Diagnostic Procedure Only (Routine) - Closed Specialty Diagnoses / Procedures Referred By Contac t Referred To Contact XR IMAGING Diagnoses Lumbar radiculopathy Procedures XR LUMBAR MOTION 4V AP/LAT/ FLEX/EXT RADEX SPINE LUMBOSACRAL MINIMUM 4 VIEWS Nguyen Kurtz APRN.CLERICAL RECEPTIONIST [facility] [place] [address] [place] [address] Referral ID Status Reason Start Date Expiration Date V isits Requested Visits Authorized [id number] Closed Auto-Generate d Referral 06/20/2023 07/19/2024 1 1 [facility] for visit Narrative* Diagnostic Procedure Only (Routine) - Closed Specialty Diagnoses / Procedures Referred By Mike malone Referred To Contact XR IMAGING Diagnoses Acute pain of left knee Procedures XR KNEE GENERAL 4V AP BOTH/PA BOTH/LAT/MERC LEFT RADIOLOGIC EXAM KNEE COMPLETE 4/MORE VIEWS Nguyen Kurtz APRN.CLERICAL RECEPTIONIST [address] [place] [address] [place] [address] Referral ID Status Reason Start Date Expiration Date V isits Requested Visits Authorized [id number] Closed Auto-Generate d Referral 01/24/2023 02/23/2024 1 1 [facility] Chief Complaint and Reason for Visit Chief Complaint lac Chief Complaint LUMBAR SPINE RM 5 VAG BLEED STD CONCERN Reason for Visit Herniation of interv ertebral disc between L4 and L5 Lumbar facet joint pain Exposure to chlamydia Chief Complaint Annual (INSPECTOR PLATING) ANNUAL PAP Reason for Visit Encounter for routin e gynecological examination Chief Complaint Annual (INSPECTOR PLATING) ANNUAL PAP ABNORMAL UTERINE BLEEDING Reason for Visit Encounter for routin e gynecological examination Chief Complaint Annual (INSPECTOR PLATING) ANNUAL PAP ABNORMAL UTERINE BLEEDING 2 W FU EMB OK PRE JV Reason for Visit Encounter for routin e gynecological examination Menorrhagia Menorrhagia Chief Complaint Annual (INSPECTOR PLATING) ANNUAL PAP ABNORMAL UTERINE BLEEDING 2 W FU EMB OK PRE JV Hysteroscopy,D&C Angelika Reason for Visit Encounter for routin e gynecological examination Menorrhagia Menorrhagia Chief Complaint Admit Date Hormone Replacement thearpy October 02 3:19pm Advance Directives No Advanced Directives Records Found Advance Directive Response Recorded Date/ Time Living Will No May 02 022 4:09pm Power of Dry Heat Room Attendant No May 02, 2022 4:09pm Advance Directive Response Recorded Date/ Time Living Will No September 29, 2022 1 0:27am Power of Dry Heat Room Attendant No September 29, 2022 10:27am Advance Directive Response Recorded Date/ Time Living Will No September 29, 2022 9 :27am Power of Dry Heat Room Attendant No September 29, 2022 9:27am Advance Directive Response Recorded Date/ Time Living Will No July 07 9:12am Power of Dry Heat Room Attendant No July 07, 2023 9:12am Advance Directive Response Recorded Date/ Time Living Will No July 07 10:12am Power of Dry Heat Room Attendant No July 07, 2023 10:12am Summary Purpose Family History No Family History Records Found Relationship Condition Age at Onset Recorded Date/T chloe Not Specified Malignant neoplasm of throat Unknown Malignant neoplasm of liver Unknown Relationship Condition Age at Onset Recorded Date/T chloe Not Specified Malignant neoplasm of throat Unknown mother Malignant neoplasm of liver Unknown Alcoholism and drug addiction in family U nknown Pulmonary emphysema Unknown father Alcoholism and drug addiction in family U nknown Malignant neoplasm of esophagus Unknown grandmother Malignant neoplasm of liver Unknown Diabetes mellitus Unknown grandfather Seizure Unknown uncle Malignant neoplasm of lung Unknown Reason for Referral Specialty Diagnoses / Procedures Referred By Mike malone Referred To Contact Rheumatology Diagnoses Lupus anticoagulant positive Procedures CONSULT TO RHEUM/IMMUN DISEASE OFFICE/OUTPATIENT [facility] 60 MINUTES Nguyen Kurtz APRN.CLERICAL RECEPTIONIST [address] [place] [address] Referral ID Status Reason Start Date Expiration Date Visits Requested Visits Authorized [id number] Authorized PCP Requested Referral 01/26/2024 01/25/2025 1 1 Specialty Diagnoses / Procedures Referred By Mike malone Referred To Contact MR IMAGING Diagnoses Hemisensory deficit Hyperreflexia Balance disorder Procedures MRI BRAIN WO IVCON MRI BRAIN BRAIN STEM W/[place] [address] [place] [id number] Mr Imaging [facility] Referral ID Status Reason Start Date Expiration Date Visits Requested Visits Authorized [id number] Pending Review Auto-Generat ed Referral 11/18/2023 12/17/2024 1 1 Specialty Diagnoses / Procedures Referred By Mike malone Referred To Contact MR IMAGING Diagnoses Hemisensory deficit Hyperreflexia Balance disorder Midline thoracic back pain, unspecified chronicity Procedures MRI THORACIC SPINE WO IVCON MRI SPINAL CANAL THORACIC W/[place] [address] [place] [address] Mr Imaging [facility] Referral ID Status Reason Start Date Expiration Date Visits Requested Visits Authorized [id number] Pending Review Auto-Generat ed Referral 11/18/2023 12/17/2024 1 1 Specialty Diagnoses / Procedures Referred By Mike malone Referred To Contact MR IMAGING Diagnoses Hemisensory deficit Hyperreflexia Balance disorder Spinal stenosis of cervical region Procedures MRI CERVICAL SPINE WO IVCON MRI SPINAL CANAL CERVICAL W/[place] [address] [place] [address] [place] [id number] Referral ID Status Reason Start Date Expiration Date Visits Requested Visits Authorized [id number] Pending Review Auto-Generat ed Referral 11/18/2023 12/17/2024 1 1 Specialty Diagnoses / Procedures Referred By Contac t Referred To Contact [facility] Diagnoses Urinary and bowel incontinence Procedures CONSULT TO PHYSICAL THERAPY PHYSICAL THERAPY EVALUATION HIGH COMPLEX 45 MINS Nguyen Kurtz, NDT INSPECTOR.CLERICAL RECEPTIONIST [address] [place] [address] [facility] [address] [place] [address] Referral ID Status Reason Start Date Expiration Date Visits Requested Visits Authorized [id number] Authorized Auto-Generat ed Referral 05/16/2023 05/15/2024 1 1 Specialty Diagnoses / Procedures Referred By Contac t Referred To Contact MR IMAGING Diagnoses Chronic low back pain without sciatica, unspecified back pain laterality Radiculopathy of lumbar region Urinary and bowel incontinence Procedures MRI LUMBAR SPINE WO/W IVCON MRI SPINAL CANAL LUMBAR W/O & W/CONTR Nguyen Higgins, NDT INSPECTOR.CLERICAL RECEPTIONIST [address] [place] [address] [place] [id number] Referral ID Status Reason Start Date Expiration Date Visits Requested Visits Authorized [id number] Pending Review Auto-Generat ed Referral 07/29/2023 08/27/2024 1 1 Specialty Diagnoses / Procedures Referred By Contac t Referred To Contact Orthopedics Diagnoses Lumbar radiculopathy Chronic midline low back pain without sciatica Procedures CONSULT TO ORTHOPAEDICS Nguyen Kurtz, NDT INSPECTOR.CLERICAL RECEPTIONIST [address] [place] [address] Doug Gutierrez [address] [address] Referral ID Status Reason Start Date Expiration Date Visits Requested Visits Authorized [id number] Ref Not Required PCP Requested Referral 06/20/2023 06/19/2024 1 1 Specialty Diagnoses / Procedures Referred By Contac t Referred To Contact XR IMAGING Diagnoses Lumbar radiculopathy Procedures XR LUMBAR MOTION 4V AP/LAT/ FLEX/EXT RADEX SPINE LUMBOSACRAL MINIMUM 4 VIEWS Nguyen Kurtz APRN.CLERICAL RECEPTIONIST [address] [place] [address] [place] [address] Referral ID Status Reason Start Date Expiration Date V isits Requested Visits Authorized [id number] Closed Auto-Generate d Referral 06/20/2023 07/19/2024 1 1 Additional Source Comments Goals (unrecognized section and content) Goals may be documented in a n alternate section No data available for this section No data available for this sectionGoals may be documented in an alternate section No data available for this sectionGoals may be documented in an alternate sectionGoals may be documented in an alternate sectionGoals may be documented in an alternate sectionGoals may be documented in an alternate sectionGoals may be documented in an alternate section Source Comments (unrecognize d section and content) In the event this informatio n is protected by the Federal Confidentiality of Alcohol and Drug Abuse Patient Records regulations: The Federal rules restrict any use of the information to criminally investigate or prosecute any alcohol or drug abuse patient.[facility] the event this information is protected by the Federal Confidentiality of Alcohol and Drug Abuse Patient Records regulations: The Federal rules restrict any use of the information to criminally investigate or prosecute any alcohol or drug abuse patient.[facility]In the event this information is protected by the Federal Confidentiality of Alcohol and Drug Abuse Patient Records regulations: The Federal rules restrict any use of the information to criminally investigate or prosecute any alcohol or drug abuse patient.[facility]In the event this information is protected by the Federal Confidentiality of Alcohol and Drug Abuse Patient Records regulations: The Federal rules restrict any use of the information to criminally investigate or prosecute any alcohol or drug abuse patient.[facility]In the event this information is protected by the Federal Confidentiality of Alcohol and Drug Abuse Patient Records regulations: The Federal rules restrict any use of the information to criminally investigate or prosecute any alcohol or drug abuse patient.[facility] the event this information is protected by the Federal Confidentiality of Alcohol and Drug Abuse Patient Records regulations: The Federal rules restrict any use of the information to criminally investigate or prosecute any alcohol or drug abuse patient.[facility] the event this information is protected by the Federal Confidentiality of Alcohol and Drug Abuse Patient Records regulations: The Federal rules restrict any use of the information to criminally investigate or prosecute any alcohol or drug abuse patient.[facility] the event this information is protected by the Federal Confidentiality of Alcohol and Drug Abuse Patient Records regulations: The Federal rules restrict any use of the information to criminally investigate or prosecute any alcohol or drug abuse patient.[facility] the event this information is protected by the Federal Confidentiality of Alcohol and Drug Abuse Patient Records regulations: The Federal rules restrict any use of the information to criminally investigate or prosecute any alcohol or drug abuse patient.[facility] the event this information is protected by the Federal Confidentiality of Alcohol and Drug Abuse Patient Records regulations: The Federal rules restrict any use of the information to criminally investigate or prosecute any alcohol or drug abuse patient.[facility]In the event this information is protected by the Federal Confidentiality of Alcohol and Drug Abuse Patient Records regulations: The Federal rules restrict any use of the information to criminally investigate or prosecute any alcohol or drug abuse patient.[facility] the event this information is protected by the Federal Confidentiality of Alcohol and Drug Abuse Patient Records regulations: The Federal rules restrict any use of the information to criminally investigate or prosecute any alcohol or drug abuse patient.[facility] the event this information is protected by the Federal Confidentiality of Alcohol and Drug Abuse Patient Records regulations: The Federal rules restrict any use of the information to criminally investigate or prosecute any alcohol or drug abuse patient.[facility]In the event this information is protected by the Federal Confidentiality of Alcohol and Drug Abuse Patient Records regulations: The Federal rules restrict any use of the information to criminally investigate or prosecute any alcohol or drug abuse patient.[facility]In the event this information is protected by the Federal Confidentiality of Alcohol and Drug Abuse Patient Records regulations: The Federal rules restrict any use of the information to criminally investigate or prosecute any alcohol or drug abuse patient.[facility]In the event this information is protected by the Federal Confidentiality of Alcohol and Drug Abuse Patient Records regulations: The Federal rules restrict any use of the information to criminally investigate or prosecute any alcohol or drug abuse patient.[facility]In the event this information is protected by the Federal Confidentiality of Alcohol and Drug Abuse Patient Records regulations: The Federal rules restrict any use of the information to criminally investigate or prosecute any alcohol or drug abuse patient.[facility]In the event this information is protected by the Federal Confidentiality of Alcohol and Drug Abuse Patient Records regulations: The Federal rules restrict any use of the information to criminally investigate or prosecute any alcohol or drug abuse patient.[facility] the event this information is protected by the Federal Confidentiality of Alcohol and Drug Abuse Patient Records regulations: The Federal rules restrict any use of the information to criminally investigate or prosecute any alcohol or drug abuse patient.[facility]In the event this information is protected by the Federal Confidentiality of Alcohol and Drug Abuse Patient Records regulations: The Federal rules restrict any use of the information to criminally investigate or prosecute any alcohol or drug abuse patient.[facility]In the event this information is protected by the Federal Confidentiality of Alcohol and Drug Abuse Patient Records regulations: The Federal rules restrict any use of the information to criminally investigate or prosecute any alcohol or drug abuse patient.[facility]In the event this information is protected by the Federal Confidentiality of Alcohol and Drug Abuse Patient Records regulations: The Federal rules restrict any use of the information to criminally investigate or prosecute any alcohol or drug abuse patient.[facility]In the event this information is protected by the Federal Confidentiality of Alcohol and Drug Abuse Patient Records regulations: The Federal rules restrict any use of the information to criminally investigate or prosecute any alcohol or drug abuse patient.[facility]In the event this information is protected by the Federal Confidentiality of Alcohol and Drug Abuse Patient Records regulations: The Federal rules restrict any use of the information to criminally investigate or prosecute any alcohol or drug abuse patient.[facility] HospitalIn the event this information is protected by the Federal Confidentiality of Alcohol and Drug Abuse Patient Records regulations: The Federal rules restrict any use of the information to criminally investigate or prosecute any alcohol or drug abuse patient.[facility] HospitalIn the event this information is protected by the Federal Confidentiality of Alcohol and Drug Abuse Patient Records regulations: The Federal rules restrict any use of the information to criminally investigate or prosecute any alcohol or drug abuse patient.[facility] HospitalIn the event this information is protected by the Federal Confidentiality of Alcohol and Drug Abuse Patient Records regulations: The Federal rules restrict any use of the information to criminally investigate or prosecute any alcohol or drug abuse patient.[facility] HospitalIn the event this information is protected by the Federal Confidentiality of Alcohol and Drug Abuse Patient Records regulations: The Federal rules restrict any use of the information to criminally investigate or prosecute any alcohol or drug abuse patient.[facility] HospitalIn the event this information is protected by the Federal Confidentiality of Alcohol and Drug Abuse Patient Records regulations: The Federal rules restrict any use of the information to criminally investigate or prosecute any alcohol or drug abuse patient.[facility] HospitalIn the event this information is protected by the Federal Confidentiality of Alcohol and Drug Abuse Patient Records regulations: The Federal rules restrict any use of the information to criminally investigate or prosecute any alcohol or drug abuse patient.[facility] Reason for Visit (unrecogniz ed section and content) Reason Comments Establish Care Reason Comments Results Reason Onset Date Comments Refill Request 11/03/2022 Reason Comments Back Pain Low back pain X 1 mo nth Reason Onset Date Comments Refill Request 07/15/2023 Reason Comments bowel incontinence X 2 months Reason Comments Chest Pain Specialty Diagnoses / Procedures Referred By Contac t Referred To Contact MR IMAGING Diagnoses Chronic low back pain without sciatica, unspecified back pain laterality Radiculopathy of lumbar region Urinary and bowel incontinence Procedures MRI LUMBAR SPINE WO/W IVCON MRI SPINAL CANAL LUMBAR W/O & W/CONTR MATRL Nguyen Kurtz APRN.CLERICAL RECEPTIONIST [address] [place] [address] [place] [id number] Referral ID Status Reason Start Date Expiration Date V isits Requested Visits Authorized [id number] Closed Auto-Generate d Referral 08/18/2023 10/17/2023 1 1 Reason Comments New Patient Evaluation Discuss mri on . Patient states no pain. Results - Mri Specialty Diagnoses / Procedures Referred By Contac t Referred To Contact [facility] Diagnoses Lumbar radiculopathy Procedures CONSULT TO [facility] OFFICE/OUTPATIENT NEW HIGH MDM 60 MINUTES Nguyen Kurtz APRN.CLERICAL RECEPTIONIST [address] [place] [address] Referral ID Status Reason Start Date Expiration Date V isits Requested Visits Authorized [id number] Closed PCP Requested Referral 06/20/2023 06/19/2024 1 1 Specialty Diagnoses / Procedures Referred By Contac t Referred To Contact MR IMAGING Diagnoses Hemisensory deficit Hyperreflexia Balance disorder Procedures MRI BRAIN WO IVCON MRI BRAIN BRAIN STEM W/[place] [address] [place] [address] Mr Imaging [facility] Referral ID Status Reason Start Date Expiration Date V isits Requested Visits Authorized [id number] Closed Auto-Generate d Referral 12/09/2023 02/07/2024 1 1 Specialty Diagnoses / Procedures Referred By Contac t Referred To Contact MR IMAGING Diagnoses Hemisensory deficit Hyperreflexia Balance disorder Spinal stenosis of cervical region Procedures MRI CERVICAL SPINE WO IVCON MRI SPINAL CANAL CERVICAL W/[place] [address] [place] [phone] Mr Imaging [place] [address] Referral ID Status Reason Start Date Expiration Date V isits Requested Visits Authorized [id number] Closed Auto-Generate d Referral 12/09/2023 02/07/2024 1 1 Reason Onset Date Comments Refill Request 03/07/2023 Reason Comments Diarrhea X 1 week ER F/U Pulmonary embolism Reason Comments Results Reason Onset Date Comments Refill Request 01/27/2024 Reason Comments Consult Specialty Diagnoses / Procedures Referred By Contac t Referred To Contact Rheumatology Diagnoses Lupus anticoagulant positive Procedures CONSULT TO RHEUM/IMMUN DISEASE OFFICE/OUTPATIENT [facility] 60 MINUTES Nguyen Kurtz APRN.CLERICAL RECEPTIONIST [address] [place] [address] Referral ID Status Reason Start Date Expiration Date V isits Requested Visits Authorized [id number] Closed PCP Requested Referral 01/26/2024 01/25/2025 1 1 Reason Comments Rash right side abdominal area x 4 days, burning and itching Reason Comments Follow Up Reason Comments Follow Up Red bumps on right e lbow X 1 month Care Teams (unrecognized sec tion and content) Optics Test Technician Relationship Specialty Start Date End Date Nguyen Kurtz APRN.CLERICAL RECEPTIONIST [address] [place], [place] [phone] PCP - General Family Medicine 09/13/22 Optics Test Technician Relationship Specialty Start Date End Date Nguyen Kurtz, NDT INSPECTOR.CLERICAL RECEPTIONIST [address] [place] [phone] PCP - General Family Medicine 09/13/22 Optics Test Technician Relationship Specialty Start Date End Date Nguyen Kurtz, NDT INSPECTOR.CLERICAL RECEPTIONIST [address] [place], [place] [phone] PCP - General Family Medicine 09/13/22 Optics Test Technician Relationship Specialty Start Date End Date Nguyen Kurtz, NDT INSPECTOR.CLERICAL RECEPTIONIST [address] [place], [place] [phone] PCP - General Family Medicine 09/13/22 Team Status: Active Member Role Status Dates Dr. Dale Whitlock , DO Family Provider Active Team Status: Inactive Member Role Status Dates Dr. Bernie Harrell , DO Primary Care Provider, Refe rring Provider Active Dr. Reji Foley , DO Attending Provider Active Team Status: Inactive Member Role Status Dates Dr. Bernie Harrell , DO Primary Care Provider Activ e Dr. Jose Reinoso MD Attending Provider Active Team Status: Inactive Member Role Status Dates Jeovany MONTALVO, PA Attending Provider Active Team Status: Inactive Member Role Status Dates Dr. Cl Tello MD Attending Provider, Emergency Provider Active Rika Burton NP Primary Care Provider Active Optics Test Technician Relationship Specialty Start Date End Date Nguyen Kurtz, NDT INSPECTOR.CLERICAL RECEPTIONIST [address] [place] [phone] PCP - General Family Medicine 09/13/22 Team Status: Active Member Role Status Dates Dr. Dale Whitlock , Family Provider Active Nguyen Kurtz , SEMI TRUCK DRIVER-C Primary Care Provider Active Team Status: Inactive Member Role Status Dates Dr. Tati Alvarez , DO Attending Provider Activ e Team Status: Inactive Member Role Status Dates Dr. Tati Alvarez , DO Attending Provider, Refe rring Provider Active Optics Test Technician Relationship Specialty Start Date End Date Nguyen Kurtz, NDT INSPECTOR.CLERICAL RECEPTIONIST [address] [place] [id number] PCP - General Family Medicine 09/13/22 Team Status: Inactive Member Role Status Dates Dr. Tati Alvarez , DO Attending Provider, Refe rring Provider Active Nguyen Kurtz , SEMI TRUCK DRIVER-C Primary Care Provider Active Optics Test Technician Relationship Specialty Start Date End Date Nguyen Kurtz, NDT INSPECTOR.CLERICAL RECEPTIONIST [address] [place] [phone] PCP - General Family Medicine 09/13/22 Team Status: Inactive Member Role Status Dates Dr. Tati Alvarez , DO Attending Provider Activ e Nguyen Kurtz , SEMI TRUCK DRIVER-C Primary Care Provider, Referrin g Provider Active Team Status: Inactive Member Role Status Dates Nguyen Kurtz , SEMI TRUCK DRIVER-C Primary Care Provider, Referrin g Provider Active Dr. Tati Alvarez , Attending Provider Activ e Team Status: Inactive Member Role Status Dates Nguyen Kurtz , SEMI TRUCK DRIVER-C Primary Care Provider Active Dr. Tati Alvarez , DO Attending Provider Activ e Team Status: Inactive Member Role Status Dates Nguyen Kurtz , SEMI TRUCK DRIVER-C Primary Care Provider Active Dr. Tati Alvarez , DO Attending Provider, Refe rring Provider Active Optics Test Technician Relationship Specialty Start Date End Date Nguyen Kurtz, NDT INSPECTOR.CLERICAL RECEPTIONIST [address] [place] [address] [phone] PCP - General Family Medicine 09/13/22 Optics Test Technician Relationship Specialty Start Date End Date Nguyen Kurtz, NDT INSPECTOR.CLERICAL RECEPTIONIST [address] [place] [address] [phone] PCP - General Family Medicine 09/13/22 Optics Test Technician Relationship Specialty Start Date End Date Nguyen Kurtz, NDT INSPECTOR.CLERICAL RECEPTIONIST [address] [place] [address] [phone] PCP - General Family Medicine 09/13/22 Optics Test Technician Relationship Specialty Start Date End Date Nguyen Kurtz APRN.CLERICAL RECEPTIONIST [address] [place] [address] [phone] PCP - General Family Medicine 09/13/22 Optics Test Technician Relationship Specialty Start Date End Date Nguyen Kurtz APRN.CLERICAL RECEPTIONIST [address] [place] [address] [phone] PCP - General Family Medicine 09/13/22 Optics Test Technician Relationship Specialty Start Date End Date Nguyen Kurtz APRN.CLERICAL RECEPTIONIST [address] [place] [address] [phone] PCP - General Family Medicine 09/13/22 Optics Test Technician Relationship Specialty Start Date End Date Nguyen Kurtz APRN.CLERICAL RECEPTIONIST [address] [place] [address] [phone] PCP - General Family Medicine 09/13/22 Optics Test Technician Relationship Specialty Start Date End Date Nguyen Kurtz APRN.CLERICAL RECEPTIONIST [address] [place] [address] [phone] PCP - General Family Medicine 09/13/22 Optics Test Technician Relationship Specialty Start Date End Date Nguyen Kurtz APRN.CLERICAL RECEPTIONIST [address] [place] [address] [phone] PCP - General Family Medicine 09/13/22 Optics Test Technician Relationship Specialty Start Date End Date Nguyen Kurtz APRN.CLERICAL RECEPTIONIST [address] [place] [address] [phone] PCP - General Family Medicine 09/13/22 Optics Test Technician Relationship Specialty Start Date End Date Nguyen Kurtz APRN.CLERICAL RECEPTIONIST [address] [place] [address] [phone] PCP - General Family Medicine 09/13/22 Optics Test Technician Relationship Specialty Start Date End Date Nguyen Kurtz APRN.CLERICAL RECEPTIONIST [address] [place] [address] [phone] PCP - General Family Medicine 09/13/22 Optics Test Technician Relationship Specialty Start Date End Date Nguyen Kurtz APRN.CLERICAL RECEPTIONIST [address] [place] [address] [phone] PCP - General Family Medicine 09/13/22 Optics Test Technician Relationship Specialty Start Date End Date Nguyen Kurtz NDT INSPECTOR.CLERICAL RECEPTIONIST [address] [place] [address] [phone] PCP - General Family Medicine 09/13/22 Optics Test Technician Relationship Specialty Start Date End Date Nguyen Kurtz NDT INSPECTOR.CLERICAL RECEPTIONIST [address] [place] [address] [phone] PCP - General Family Medicine 09/13/22 Optics Test Technician Relationship Specialty Start Date End Date Nguyen Kurtz, NDT INSPECTOR.CLERICAL RECEPTIONIST [address] [place] [address] [phone] PCP - General Family Medicine 09/13/22 Optics Test Technician Relationship Specialty Start Date End Date Nguyen Kurtz, NDT INSPECTOR.CLERICAL RECEPTIONIST [address] [place] [address] [phone] PCP - General Family Medicine 09/13/22 Optics Test Technician Relationship Specialty Start Date End Date Nguyen Kurtz, NDT INSPECTOR.CLERICAL RECEPTIONIST [address] [place] [address] [phone] PCP - General Family Medicine 09/13/22 Optics Test Technician Relationship Specialty Start Date End Date Nguyen Kurtz APRN.CNP [address] [place] [id number] PCP - General Family Medicine 09/13/22 Team Status: Inactive Member Role Status Dates CONRAD Miller Primary Care Provider Active Start: October 02, 2024 End: October 02, 2024 CONRAD Miller Referring Provider Active Start: October 02, 2024 End: October 02, 2024 Dr. Tati Alvarez , Attending Provider Activ e Start: October 02, 2024 End: October 02, 2024 INFORMATION SOURCE (unrecogn ized section and content) DATE CREATED AUTHOR 10/24/2022 [facility] ([place]) DATE CREATED AUTHOR AUTHOR'S ORGANIZ ATION 09/23/2024 [facility] DATE CREATED AUTHOR AUTHOR'S ORGANIZ ATION 10/04/2024 [facility] FOR RECORDS PERTAINING TO PATIENTS WHO ARE [...] BE BASED ON THE PRIMARY CLINICAL RECORDS. [employer] provides no warranty or guarantee of the accuracy or completeness of information in this document.
[2024-12-05 22:07] LABS: Anion Gap 13 (5-15); BUN 13 mg/dL (4-19); BUN/Creat Ratio 16.1 RATIO (10-20); Calcium,Total 9.9 mg/dL (7.6-11.0); Carbon Dioxide 24.5 mmol/L (21.0-32.0); Chloride 103 mmol/L (98-108); Estimated Creatinine Clearance 92.53 ml/min (50-250); Glucose 127 mg/dL (70-99); Potassium 3.6 mmol/L (3.3-5.1)
[2024-12-05 22:13] VITALS: BP 137/67; PULSE 85; RESP 12; O2SAT 98
[2024-12-05 22:15] LABS: Pro- Brain NATRIURETIC PEPTIDE < 36 pg/mL (<=450); Troponin T High Sensitivity < 6 ng/L (<=14)
[2024-12-05 22:17] LABS: Hematocrit 36.0 % (37-47); Hemoglobin 12.9 g/dL (12.0-15.0); Immature Granulocytes Count 0.090 X10^3/uL (0.0-0.0); Mean Corp Hgb Conc 35.8 g/dL (32-36); Mean Corpuscular Volume 89.3 fL (81-99); Mean Platelet Vol. 9.8 fl (6.2-12.0); NRBC Flagged by Analyzer 0 % (0-5); Platelet Count 321 K/mm3 (150-450); RBC Distribution Width CV 11.9 % (11.6-14.6); RBC Distribution Width SD 38.2 fl (35.1-43.9); Red Blood Count 4.03 M/mm3 (4.2-5.4); White Blood Count 9.7 K/mm3 (4.4-11.0)
[2024-12-05 23:00] VITALS: BP 110/69; PULSE 86; RESP 12; O2SAT 96
--- NOTE | 2024-12-05 23:34 | ED.RN ---
went into room to draw pt's 2nd trop, per orders. her sig other expressed that he did not want to wait for additional results "you aren't doing anything for her. it was her lungs last time, so why are you checking her heart." educated pt and family member on importance of testing troponin levels when pt arrives to ed w/complaints of chest pain. educated on purpose of 2nd test. also provided family with a list of the tests that have been performed so far. pt's sig other states "this place is a joke. we're leaving" rn continued conversation w/pt and family member who expressed that he was offended by the "baby-face 18-year old doctor who came in and said he was going to take her [step-daughter] phone away because of the game she's playing.] he said he was joking, but he had no right to speak to her that way." apologized to pt and family member for any comments that caused offense. asked pt and family member to remain in room and offered to have dr villa come into room to provide results of what tests had already been completed. sig other stated he was leaving and asked his step-daughter to go with him. discussed situation with pt who stated "he has bipolar and explosive personality disorder and he will suddenly get angry and yell, even when it's not justified." pt agreeable to staying in room to discuss results with dr villa. dr villa aware that pt would like results and discharge.
== END 2024-12-05 23:50 | disposition home or self-care (01) ==
PROVIDERS: Emergency Provider Emergency Medicine; PCP Nurse Practitioner Family; Referring Provider Emergency Medicine; Visit Provider Emergency Medicine
DX: R07.9 Chest pain, unspecified (principal); Z86.711 Personal history of pulmonary embolism; Z87.891 Personal history of nicotine dependence; K21.9 Gastro-esophageal reflux disease without esophagitis
CPT/HCPCS: 71275; 80048; 83880; 84484; 85025; 93005; 99283; Q9967; A4216

== ENCOUNTER → 2025-01-08 | Outpatient (CLI) | payer MEDICAID, SELFPAY ==
[2025-01-08 13:02] LABS: Follicle Stimulating Hormone 4.3 mIU/mL
[2025-01-10 19:08] LABS: Anti-Mullerian Hormone,Serum 1.87 ng/mL (.)
== END | disposition home or self-care (01) ==
PROVIDERS: PCP Nurse Practitioner Family; Visit Provider Nurse Practitioner Women's Health
DX: N95.1 Menopausal and female climacteric states (principal)
CPT/HCPCS: 36415; 82670; 83001; 83516

== ENCOUNTER 2025-01-26 08:17 | Emergency (ER) | payer MEDICAID, SELFPAY ==
[2025-01-26 08:18] VITALS: BP 117/74; PULSE 91; RESP 14; TEMP 36.6; O2SAT 98; BMI 31.0
--- NOTE | 2025-01-26 08:24 | EKG12_ITS ---
Test Reason : CP Blood Pressure : */* mmHG Vent. Rate : 87 BPM Atrial Rate : 87 BPM P-R Int : 116 ms QRS Dur : 98 ms QT Int : 396 ms P-R-T Axes : 36 -9 26 degrees QTcB Int : 476 ms Normal sinus rhythm Normal ECG When compared with ECG of 05-Dec-2024 20:48, No significant change was found Confirmed by Jordan Garcia ([id number]), editorial project manager GERONIMO MICHAEL ([id number]) on 01/29/2025 12:02:14 PM Referred By: TB/BB Confirmed By: Jordan Garcia
--- NOTE | 2025-01-26 08:42 | EDS_ITS ---
HPI History of Present Illness Chief Complaint: Chest Pain Narrative Narrative: Patient is a 44-year-old female with past medical history of lupus, IBS, PE while being on estrogen, anxiety, depression who presents to the emergency department with a chief complaint of chest pressure in the middle of her chest as well as some shortness of breath. Patient states that her symptoms started last night she states that she ate dinner and about an hour later went to bed lay down and then developed this chest discomfort. States that she is on omeprazole twice daily and follows with gastroenterology. Patient states that her pain has been constant nothing making this better or worse. Patient states that she is concerned that she may have a blood clot in her lungs again. Patient denies any estrogen use, recent travels, recent surgeries. [facility] Medical History Neuropathy Lupus Irritable bowel syndrome affecting Retained cholelithiasis following cholecystectomy Elevated LDH Migraine without aura Lumbosacral radiculopathy at L4 Low iron Dysthymic disorder Abdominal pain, right upper quadrant Wears glasses Wears dentures Gastric reflux Smoker Anxiety Depression Home Medications ?Medication ?Instructions ?Recorded ?Last Taken ?Type venlafaxine 37.5 mg 37.5 mg PO QDAY #90 caps 01/25/25 Rx capsule,extended release 24 hr (Effexor XR) gabapentin 300 mg capsule 300 mg PO QHS #90 caps 10/0201/24/25 Rx medroxyprogesterone 2.5 mg tablet 2.5 mg PO QDAY #90 t abs 10/02/24 01/25/25 Rx melatonin 5 mg capsule 5 mg PO QHS PRN 10/02/24 Unk nown History omeprazole 20 mg capsule,delayed 20 mg PO BID 10/02/24 01/25/25 History release Allergy/AdvReac Type Severity Reaction Status Date / Time No Known Allergies Allergy Verified 01/26/25 08:18 Family History Mother Liver cancer Alcoholism and drug addiction in family Emphysema lung Father Alcoholism and drug addiction in family Esophageal cancer Grandmother Liver cancer Diabetes Grandfather Seizures Uncle Lung cancer Other Throat cancer Surgical History History of bilateral ligation of fallopian tubes H/O dilation and curettage S/P cholecystectomy History of salpingectomy Social History adopted: No household members: significant other and children current occupational status: employed current occupation: [employer] current occupational exposures/hazards: No pets and animals: Yes pets and animals: guinea pig(s) sexually active: Yes Smoking Status: Current every day smoker tobacco type: e-cigarettes alcohol intake: never substance use type: does not use caffeine: Yes Type: coffee frequency: daily seatbelt use: always do you feel safe at home: Yes additional social history: Jam Franco: stay's at home watching her 11yr ROS ROS ED ROS Narrative Constitutional: Denies fevers, chills, headaches Eyes: Denies double vision Cardiovascular: Complains of chest discomfort as noted above denies palpitations Respiratory: Planes of shortness of breath denies coughing wheezing Abdomen: Denies abdominal pain nausea vomiting diarrhea : Denies any urinary symptoms Neurological: Denies numbness, weakness, tingling Musculoskeletal: Denies back pain Skin: Denies any rashes or lesions EXAM Physical Exam Narrative Exam Narrative: General: Patient was lying in bed rest comfortably did not appear to be in acute distress Head: Atraumatic, normocephalic Eyes: PERRL bilaterally, EOMI bilaterally, no conjunctival injection noted Neck: Soft, supple, trachea midline Cardiovascular: Regular rate and rhythm Respiratory: Clear to auscultation bilaterally Abdomen: Soft, nondistended, no tenderness palpation Extremities: +5/5 strength noted in the bilateral upper and lower extremities, radial pulses +2/4 in the bilateral extremities Neurological: Patient following commands knew that she was at [facility] year is 2024 Skin: Warm, dry, intact no rashes or lesions noted Const Vital Signs: 01/26/25 08:18 01/26/25 08:25 01/26/25 08:26 Temperature 98 F Temperature Source Temporal Pulse Rate 91 Respiratory Rate 14 Respiratory Effort Normal Non-Labored Blood Pressure 117/74 Blood Pressure Mean 88 Pulse Ox 98 Oxygen Delivery Method Room Air Room Air 01/26/25 09:18 01/26/25 10:00 01/26/25 11:00 Temperature Temperature Source Pulse Rate 79 77 74 Respiratory Rate 12 14 14 Respiratory Effort Blood Pressure 135/75 H 129/76 H 133/81 H Blood Pressure Mean 95 93 98 Pulse Ox 99 99 96 Oxygen Delivery Method Room Air Room Air Room Air MDM MDM MDM Narrative Medical decision making narrative: Patient is a 44-year-old female who presented to the emergency department with a chief complaint of chest pain and shortness of breath once again this has been going on since last night has been constant and started after she ate dinner and lay down. On the differential diagnose includes but not limited to ACS, pneumonia, GERD, anxiety. Once workup is obtained and reviewed she will be reevaluated. Patient's CBC reviewed showed no evidence leukocytosis white blood count normal 9.3, hemoglobin 15.1, platelet count of 410. Patient D-dimer is elevated at 1.[address] of the chest was added on. Patient sodium normal 139, Tessman 4.3, creatinine 0.74. Patient calcium was 10.2, troponin was less than 6 with a delta troponin of less than 6. Patient proBNP was less than 36. Patient's chest x-ray reviewed by myself and by radiology which showed no acute cardiopulmonary processes. Patient CTA of the chest reviewed showed no evidence of pulmonary embolism fatty liver no other acute findings. Patient ambulated well here in the emergency department no hypoxia no tachy cardia. Patient was advised to follow-up with her doctor in outpatient setting and return for worsening symptoms or concerns. She is agreeable to plan all question concerns answered she was discharged home in stable condition. Lab Data Labs: Laboratory Results - last 24 hr 01/26/25 01/26/25 08:30 11:21 WBC 9.3 RBC 4.80 Hgb 15.1 H Hct 43.1 MCV 89.8 MCH 31.5 MCHC 35.0 RDW Std Deviation 38.1 RDW Coeff of Ramiro 11.6 Plt Count 410 MPV 9.5 Immature Gran % (Auto) 0.900 Neut % (Auto) 59.6 Lymph % (Auto) 29.5 Van Zandt % (Auto) 5.9 Eos % (Auto) 3.2 Baso % (Auto) 0.9 Absolute Neuts (auto) 5.5 Absolute Lymphs (auto) 2.74 Nucleated RBC % 0 D-Dimer Quant (PE/DVT) 1.55 H* Sodium 139 Potassium 4.3 Chloride 100 Carbon Dioxide 25.8 Anion Gap 13 BUN 17 Creatinine 0.74 Estim Creat Clear Calc 98.47 Est GFR (MDRD) Non-Af 101 BUN/Creatinine Ratio 23.2 H Glucose 150 H Calcium 10.2 Troponin T High Sens < 6 Troponin T Hi Sens 2 Hr < 6 NT pro BNP II < 36 Radiography Diagnostic Testing: Clinical Impression(s) from Imaging Studies Chest X-Ray 01/26/25 08:45 IMPRESSION: Negative chest. Reading Location: [facility] Chest CTA 01/26/25 09:08 IMPRESSION: Negative for pulmonary embolus. Fatty liver. Negative for acute cardiopulmonary disease. Reading Location: [facility] Discharge Plan Triage Chief Complaint: Chest Pain ED Provider: Nando Waterman Dx/Rx/DC Orders Clinical Impression: Chest pain, Shortness of breath, GERD (gastroesophageal reflux disease) Prescriptions: No Action omeprazole 20 mg capsule,delayed release(DR/EC) 20 mg PO BID melatonin 5 mg capsule 5 mg PO QHS PRN medroxyprogesterone 2.5 mg tablet 2.5 mg PO QDAY Qty: 90 4RF gabapentin 300 mg capsule 300 mg PO QHS Qty: 90 4RF venlafaxine [Effexor XR] 37.5 mg capsule,extended release 24hr 37.5 mg PO QDAY Qty: 90 3RF Primary Care Provider: Meagan Meléndez Referrals: Meagan Meléndez, [employer]SEM[employer]ANER-C [Primary Care Provider] - Activity Restrictions/Additional Instructions: Your blood work did not show any acute findings here today. Your chest x-ray and the CTA of your chest did not show any evidence of pneumonia nor any evidence of blood clots. Return with worsening symptoms or any other concerns Print Language: Cambodian Disposition Disposition: Home, Self Care
[2025-01-26] MEDS: 0.9% Normal Saline (1000mL) 1,000 ML 999 ML IV (08:43)
--- NOTE | 2025-01-26 08:45 | RAD_ITS ---
PROCEDURE: CHEST PA AND LATERAL 01/26/2025 REASON FOR EXAM: CHEST PAIN TECHNIQUE: Procedure Code: RADCXR Modality: DX Procedure: CHEST PA AND LATERAL COMPARISON: January 2024. FINDINGS: Hardware and support lines: None. Heart: Negative. Lungs: Negative for infiltrates, or pulmonary edema. Pleura: No pleural thickening. No pleural effusion. Mediastinum and aorta: Negative for hilar adenopathy. Normal aorta Bones: Age-appropriate degenerative changes of the spine. Other: Remainder of the exam negative. RAD/Chest PA and Lateral IMPRESSION: Negative chest. Reading Location: [id number]
[2025-01-26 08:46] LABS: Hematocrit 43.1 % (37-47); Hemoglobin 15.1 g/dL (12.0-15.0); Immature Granulocytes Count 0.080 X10^3/uL (0.0-0.0); Mean Corp Hgb Conc 35.0 g/dL (32-36); Mean Corpuscular Volume 89.8 fL (81-99); Mean Platelet Vol. 9.5 fl (6.2-12.0); NRBC Flagged by Analyzer 0 % (0-5); Platelet Count 410 K/mm3 (150-450); RBC Distribution Width CV 11.6 % (11.6-14.6); RBC Distribution Width SD 38.1 fl (35.1-43.9); Red Blood Count 4.80 M/mm3 (4.2-5.4); White Blood Count 9.3 K/mm3 (4.4-11.0)
--- OUTSIDE RECORDS SUMMARY | 2025-01-26 08:59 | XMS RPT_ITS | CCD ---
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 ovarian tumor.Performed at: [facility] [address] [id number] Director: Caitlyn Alford MD, Phone: [phone] Troponin T HS 4 HRon 025 Trop T High Sen Normal <=14 [facility] Comment on above: Result Comment: Canc elled via OM: Order cancelled - Patient discharged Performed By: #### L 499.0043 #### [facility] Laboratory [address] [facility] [place], [address] 12 Lead EKGon 12-05-2024 12 Lead EKG [facility] Cardiovascular Services [address] [place] [address] 12 Lead EKG 12/05/242047 MR#: [id number] Acct: [id number] Name: SPEEDY BLACKWOOD Rep #: [id number] : 1980 44 From: Maddy Zaman MD Attending Dr: Status: DEP ER Ordering Dr: Armando Weems DO Date: 12/05/24 Location: ED Sex: F C Admitted: Test Reason : CP Blood Pressure : */* mmHG Vent. Rate : 87 BPM Atrial Rate : 87 BPM P-R Int : 124 ms QRS Dur : 94 ms QT Int : 374 ms P-R-T Axes : 40 -13 7 degrees QTcB Int : 450 ms Normal sinus rhythm Cannot rule out Anterior infarct , age undetermined Abnormal ECG Confirmed by REDD BARKER, LOTUS ([id number]), visual effects editor AMY RUSSELL ([id number]) on 12/07/2024 1:12:39 PM Referred By: Armando Weems Confirmed By: LOTUS ZAMAN MD 12/07/24 1312 Date Maddy Zaman MD CC: TRAINING ADMINISTRATOR-C Nguyen Kurtz; Dr. Armando Weems, DO Signed Normal [facility] Absolute lymphocyte countOrd ered By: Armando Weems on 12-05-2024 Lymphocytes Auto (Unsp spec) [#/Vol] 3.56 10*3/uL 0.83-4.51 [facility] Absolute neutrophil countOrd ered By: Armando Weems on 12-05-2024 Neutrophils (Bld) [#/Vol] 4.8 10*3/uL 2.0-7.7 [facility] Anion gap in Serum or Plasma Ordered By: Armando Weems on 12-05-2024 Anion gap [Moles/Vol] 13 mmol/L 5-15 [facility] Automated lymphocyte count a s percentage of total leukocytesOrdered By: Armando Weems on 12-05-2024 Lymphocytes/100 WBC Auto (Unsp spec) 36.8 % 19-41 [facility] BUN/creatinine ratioOrdered By: Armando Weems on 12-05-2024 Urea nitrogen/Creatinine [Mass ratio] 16.1 mg/mg 10- [facility] Basic Metabolic Profile (BMP )on 12-05-2024 BUN/CRE 16.1 RATIO Normal - [facility] Comment on above: Performed By: #### L 503.7500, L501.4021, L500.2500, L100.0100 ####[facility] [address] [place], [address] Calcium [Mass/Vol] 9.9 mg/dL Normal 7.6-11.0 [facility] Comment on above: Performed By: #### L 503.7505, L501.4021, L500.2500, L100.0100 ####[facility] [address] [place], [address] Chloride [Moles/Vol] 103 mmol/L Normal 98-108 [facility] Comment on above: Performed By: #### L 503.7505, L501.4021, L500.2500, L100.0100 ####[facility] [address] [place], [address] CO2 [Moles/Vol] 24.5 mmol/L Normal 21.0-32.0 [facility] Comment on above: Performed By: #### L 503.7505, L501.4021, L500.2500, L100.0100 ####[facility] [address] [place], [address] Creatinine [Mass/Vol] 0.78 mg/dL Normal 0.70-1.20 [facility] Comment on above: Performed By: #### L 503.7505, L501.4021, L500.2500, L100.0100 ####[facility] [address] [place], [address] ECRCL 92.53 ml/min Normal 50-250 [facility] Comment on above: Performed By: #### L 503.7505, L501.4021, L500.2500, L100.0100 ####[facility] [address] [place], [address] GAP 13 Normal 5-15 [facility] Comment on above: Performed By: #### L 503.7505, L501.4021, L500.2500, L100.0100 ####[facility] [address] [place], [address] GFR/1.73 sq M.predicted among non-blacks MDRD (S/P/Bld) [Vol rate/Area] 95 mL/min/{1.73_m2} Normal >60 [facility] Comment on above: Result Comment: mL/m in/1.73m2 CKD-EPI Creatinine Equation (2020) Performed By: #### L 503.7505, L501.4021, L500.2500, L100.0100 ####[facility] [address] [place], [address] Glucose [Mass/Vol] 127 mg/dL High 70-99 [facility] Comment on above: Performed By: #### L 503.7505, L501.4021, L500.2500, L100.0100 ####[facility] [address] [place], [address] Potassium [Moles/Vol] 3.6 mmol/L Normal 3.3-5.1 [facility] Comment on above: Performed By: #### L 503.7505, L501.4021, L500.2500, L100.0100 ####[facility] [address] [place], [address] Sodium [Moles/Vol] 140 mmol/L Normal 133-145 [facility] Comment on above: Performed By: #### L 503.7505, L501.4021, L500.2500, L100.0100 ####[facility] [address] [place], [address] Urea nitrogen [Mass/Vol] 13 mg/dL Normal 4-19 [facility] Comment on above: Performed By: #### L 503.7505, L501.4021, L500.2500, L100.0100 ####[facility] [address] [place], [address] Basophil percentageOrdered B y: Armando Weems on 12-05-2024 Basophils/100 WBC (Bld) 0.6 % 0-1 [facility] CBC W/Diff, Automatedon 11-14 Absolute Lymph 3.56 X10 3/uL Normal 0.83-4.51 [facility] Comment on above: Performed By: #### L 503.7505, L501.4021, L500.2500, L100.0100 ####[facility] [address] [place], [address] Absolute Neut 4.8 X10 3/uL Normal 2.0-7.7 [facility] Comment on above: Performed By: #### L 503.7505, L501.4021, L500.2500, L100.0100 ####[facility] [address] [place], [address] Basophils/100 WBC (Bld) 0.6 % Normal 0-1 [facility] Comment on above: Performed By: #### L 503.7505, L501.4021, L500.2500, L100.0100 ####[facility] [address] [place], [address] Eosinophils/100 WBC (Bld) 5.4 % High 0-5 [facility] Comment on above: Performed By: #### L 503.7505, L501.4021, L500.2500, L100.0100 ####[facility] [address] [place], [address] Erythrocyte distribution width (RBC) [Ratio] 11.9 % Normal 11.6-14.6 [facility] Comment on above: Performed By: #### L 503.7505, L501.4021, L500.2500, L100.0100 ####[facility] [address] [place], [address] Hematocrit (Bld) [Volume fraction] 36.0 % Low 37-47 [facility] Comment on above: Performed By: #### L 503.7505, L501.4021, L500.2500, L100.0100 ####[facility] [address] [place], [address] Hemoglobin (Bld) [Mass/Vol] 12.9 g/dL Normal 12.0-15.0 [facility] Comment on above: Performed By: #### L 503.7505, L501.4021, L500.2500, L100.0100 ####[facility] [address] [place], [address] IG% 0.900 Normal 0.0-0.9 [facility] Comment on above: Result Comment: IG% - Immature Granulocytes (promyelocytes, myelocytes and metamyelocytes) > 1% indicates that a LEFT SHIFT is Present. Performed By: #### L 503.7505, L501.4021, L500.2500, L100.0100 ####[facility] [address] [place], [address] Lymphocytes/100 WBC (Bld) 36.8 % Normal 19-41 [facility] Comment on above: Performed By: #### L 503.7505, L501.4021, L500.2500, L100.0100 ####[facility] [address] [place], [address] MCH (RBC) [Entitic mass] 32.0 pg Normal 27.0-32.0 [facility] Comment on above: Performed By: #### L 503.7505, L501.4021, L500.2500, L100.0100 ####[facility] [address] [place], [address] MCHC (RBC) [Mass/Vol] 35.8 g/dL Normal 32-36 [facility] Comment on above: Performed By: #### L 503.7505, L501.4021, L500.2500, L100.0100 ####[facility] [address] [place], [address] MCV (RBC) [Entitic vol] 89.3 fL Normal 81-99 [facility] Comment on above: Performed By: #### L 503.7505, L501.4021, L500.2500, L100.0100 ####[facility] [address] [place], [address] Monocytes/100 WBC (Bld) 6.2 % Normal 0-10 [facility] Comment on above: Performed By: #### L 503.7505, L501.4021, L500.2500, L100.0100 ####[facility] [address] [place], [address] Neutrophils/100 WBC (Bld) 50.1 % Normal 47-70 [facility] Comment on above: Performed By: #### L 503.7505, L501.4021, L500.2500, L100.0100 ####[facility] [address] [place], [address] Nucleated RBC (Bld) [#/Vol] 0 10*3/uL Normal 0-5 [facility] Comment on above: Performed By: #### L 503.7505, L501.4021, L500.2500, L100.0100 ####[facility] [address] [place], [address] Platelet mean volume (Bld) [Entitic vol] 9.8 fL Normal 6.2-12.0 [facility] Comment on above: Performed By: #### L 503.7505, L501.4021, L500.2500, L100.0100 ####[facility] [address] [place], [address] Platelets (Bld) [#/Vol] 321 10*3/uL Normal 150-450 [facility] Comment on above: Performed By: #### L 503.7505, L501.4021, L500.2500, L100.0100 ####[facility] [address] [place], [address] RBC (Bld) [#/Vol] 4.03 10*6/uL Low 4.2-5.4 [facility] Comment on above: Performed By: #### L 503.7505, L501.4021, L500.2500, L100.0100 ####[facility] [address] [place], [address] RDW SD 38.2 fl Normal 35.1-43.9 [facility] Comment on above: Performed By: #### L 503.7505, L501.4021, L500.2500, L100.0100 ####[facility] [address] [place], [address] WBC (Bld) [#/Vol] 9.7 10*3/uL Normal 4.4-11.0 [facility] Comment on above: Performed By: #### L 503.7505, L501.4021, L500.2500, L100.0100 ####[facility] [address] [place], [address] CTA Chest W/WO Contraston CTA Chest W/WO Contrast [facility] Imaging Services [address] [place] [address] CTA Chest W/WO Contrast MR#: [id number] Acct: [id number] Name: SPEEDY BLACKWOOD Rep #: [id number] : 1980 F 44 From: Brian Topete MD PCP: Nguyen Kurtz, TRAINING ADMINISTRATOR-C Status: [facility] ER Study: CTA Chest W/WO Contrast Date of Exam: 12/05/24 Exam# [id number] Ordering Dr: Armando Weems DO PROCEDURE: CTA CHEST W/WO CONTRAST 12/05/2024 REASON FOR EXAM: CHEST PAIN, HISTORY OF PE TECHNIQUE: CTA CHEST W/WO CONTRAST Multiplanar Sagittal and Coronal images were obtained. CONTRAST: Isovue 370 VOLUME: 100 mL One or more dose reduction techniques were used (e.g., Automated exposure control, adjustment of the mA and/or kV according to patient size, use of iterative reconstruction technique). RADIATION DOSE SUMMARY: CTDlvol: 15 mGy DLP: 371 mGycm COMPARISON: 01/17/2024 FINDINGS: Unremarkable base of neck and axilla. Normal heart size. No aortic dissection. Normal esophagus. No pulmonary embolism. No acute chest wall findings. Enlarged liver with diffuse hepatic steatosis consistent with medical liver disease. No acute upper abdominal findings otherwise noted. Central airways are patent. Dependent atelectasis. No consolidation, effusion, or pneumothorax. CT/CTA Chest W/WO Contrast IMPRESSION: No embolism, dissection, or pneumonia. Suspect hepatitis. Reading Location: [place] [address] CC: TRAINING ADMINISTRATOR-C Nguyen Kurtz; Dr. Armando Weems DO Cafeteria Cashier: Signed Normal [facility] Carbon dioxide, total [Moles /volume] in Central venous bloodOrdered By: Armando Weems on 12-05-2024 CO2 [Moles/Vol] 24.5 mmol/L 21.0-32.0 [facility] Chloride assayOrdered By: Joelle Weems on 12-05-2024 Chloride [Moles/Vol] 103 mmol/L 98-108 [facility] Emergency Department Summary on 12-05-2024 Emergency Department Summary [facility] Medical Records Department [address] [place] [address] Emergency Department Summary 12/05/24 MR#: [id number] Acct: [id number] Name: SPEEDY BLACKWOOD Rep #: [id number] : 1980 44 From: Armando Weems DO PCP: Nguyen Kurtz NP-C Status:DEP ER Location: ED HPI History of Present Illness Chief Complaint: Chest Pain [facility] Medical History Neuropathy Lupus Irritable bowel syndrome affecting Retained cholelithiasis following cholecystectomy Elevated LDH Migraine without aura Lumbosacral radiculopathy at L4 Low iron Dysthymic disorder Abdominal pain, right upper quadrant Wears glasses Wears dentures Gastric reflux Smoker Anxiety Depression Home Medications ???Medication ???Instructions ???Recorded ???Last Taken ???Type venlafaxine 37.5 mg 37.5 mg PO QDAY #90 caps 03/08/24 03/28/24 Rx capsule,extended release 24 hr (Effexor XR) gabapentin 300 mg capsule 300 mg PO QHS #90 caps 10/02/24 Un known Rx medroxyprogesterone 2.5 mg tablet 2.5 mg PO QDAY #90 tabs 10/02/24 Unknown Rx melatonin 5 mg capsule 5 mg PO QHS PRN 10/02/24 Unknown H istory omeprazole 20 mg capsule,delayed 20 mg PO BID 10/02/24 Unknown Hist ory release clobetasol 0.05 % topical ointment 1 applic topical BID 12/05/24 Un known History Allergy/AdvReac Type Severity Reaction Status Date / Time No Known Allergies Allergy Verified 12/05/24 20:38 Family History Mother Liver cancer Alcoholism and drug addiction in family Emphysema lung Father Alcoholism and drug addiction in family Esophageal cancer Grandmother Liver cancer Diabetes Grandfather Seizures Uncle Lung cancer Other Throat cancer Surgical History History of bilateral ligation of [...] Franco: stay's at home watching her 11yr EXAM Physical Exam Const Vital Signs: 12/05/24 20:37 12/05/24 20:45 12/05/24 21:37 Temperature 96.9 F L Temperature Source Temporal Pulse Rate 91 Respiratory Rate 14 Respiratory Pattern Normal Blood Pressure 136/61 H Blood Pressure Mean 86 Pulse Ox 98 Oxygen Delivery Method Room Air Room Air 12/05/24 22:13 12/05/24 23:00 Temperature Temperature Source Pulse Rate 85 86 Respiratory Rate 12 12 Respiratory Pattern Blood Pressure 137/67 H 110/69 Blood Pressure Mean 90 82 Pulse Ox 98 96 Oxygen Delivery Method Room Air Room Air [facility] Narrative Medical decision making narrative: HISTORY OF PRESENT ILLNESS: Chief complaint: Chest pain 44-year-old female presents with chest pain history of pulmonary embolism not currently anticoagulated, lupus, irritable bowel syndrome. Notes she developed a chest tightness/squeezing that was reminiscent of prior PE earlier today. Denies syncope. No she is not currently on anticoagulation. Denies cough fever chills. Denies leg swelling. Denies shortness of breath. No pain at this time. REVIEW OF SYSTEMS: Pertinent positives: Chest pain Pertinent negatives: Shortness of breath, leg swelling, vomit PHYSICAL EXAM: Nursing triage notes reviewed, Vital signs reviewed Constitutional: please see mdm HENT: MMM Eyes: Pupils equal round and reactive to light, Extraocular muscles intact Neck: No stridor, no JVD, full neck ROM Lungs: Clear to auscultation, No wheezing or rales. No increased work of breathing, no conversational dyspnea, no accessory muscle use, no nasal flaring. No respiratory distress noted Heart: Regular rate and rhythm, No murmurs, No rubs and No gallops, 2+ distal pulses (radial, femoral, posterior tibial) in all extremities Abdomen: Soft, there is no tenderness, rigidity, rebound or guarding, no obvious peritoneal signs, no palpable pulsatile abdominal masses, no auscultated abdominal bruit : No CVAT Extremities: No edema Neuro: No new focal neurological deficits, cranial nerves II through XII intact, 5/5 strength in all present extremities. Intact sensation to light touch in all present extrem (more content not included)... Normal [facility] Eosinophil percentageOrdered By: Armando Weems on 12-05-2024 Eosinophils/100 WBC (Bld) 5.4 % High 0-5 [facility] Erythrocyte distribution wid th ratioOrdered By: Armando Weems on 12-05-2024 Erythrocyte distribution width (RBC) [Ratio] 11.9 % 11.6-14.6 [facility] Erythrocyte distribution wid th standard deviationOrdered By: Armando Weems on 12-05-2024 Erythrocyte distribution width (RBC) [Ratio] 38.2 fl 35.1-43.9 [facility] Glomerular filtration rate ( GFR) estimation/1.73 sq m using serum, plasma, or whole bOrdered By: Armando Weems on 12-05-2024 GFR/1.73 sq M.predicted among non-blacks MDRD (S/P/Bld) [Vol rate/Area] 95 mL/min/{1.73_m2} >60 [facility] Comment on above: mL/min/1.73m2 CKD-EP I Creatinine Equation (2020) Hematocrit Auto (Bld) [Volum e fraction]Ordered By: Armando Weems on 12-05-2024 Hematocrit (Bld) [Volume fraction] 36.0 % Low 37-47 [facility] Hemoglobin measurementOrdere d By: Armando Weems on 12-05-2024 Hemoglobin (Bld) [Mass/Vol] 12.9 g/dL 12.0-15.0 [facility] Immature granulocytes/100 WB C Auto (Bld)Ordered By: Armando Weems on 12-05-2024 Immature granulocytes/100 WBC (Bld) 0.900 % 0.0-0.9 [facility] Comment on above: IG% - Immature Granu locytes (promyelocytes, myelocytes and metamyelocytes) > 1% indicates that a LEFT SHIFT is Present. L501.4021on 12-05-2024 Trop T High Sen < 6 Normal <=14 [facility] Comment on above: Performed By: #### L 503.7505, L501.4021, L500.2500, L100.0100 ####[facility] [address] [place], [place], [address] L503.7505on 12-05-2024 proBNP < 36 Normal <=450 [facility] Comment on above: Result Comment: Hear t Failure Unlikely: < 300 pg/mL Heart Failure Likely < 50 Years: > 450 pg/mL 50-75 Years: > 900 pg/mL >75 Years: > 1800 pg/mL Performed By: #### L 503.7505, L501.4021, L500.2500, L100.0100 ####[facility] [address] [place], [address] MCV (mean corpuscular volume ) determinationOrdered By: Armando Weems on 12-05-2024 MCV (RBC) [Entitic vol] 89.3 fL 81-99 [facility] Mean corpuscular hemoglobin (MCH) determinationOrdered By: Armando Weems on 12-05-2024 MCH (RBC) [Entitic mass] 32.0 pg 27.0-32.0 [facility] Mean corpuscular hemoglobin concentration (MCHC) determinationOrdered By: Armando Weems on 12-05-2024 MCHC (RBC) [Mass/Vol] 35.8 g/dL 32-36 [facility] Mean platelet volume determi nationOrdered By: Armando Weems on 12-05-2024 Platelet mean volume (Bld) [Entitic vol] 9.8 fL 6.2-12.0 [facility] Monocyte percentageOrdered B y: Armando Weems on 12-05-2024 Monocytes/100 WBC (Bld) 6.2 % 0-10 [facility] Natriuretic peptide.B prohor blanquita N-Terminal [Mass/volume] in Serum or PlasmaOrdered By: Armando Weems on 12-05-2024 Natriuretic peptide.B prohormone N-Terminal [Mass/Vol] < 36 pg/mL <450 [facility] Comment on above: Heart Failure Unlike ly: < 300 pg/mLHeart Failure Likely< 50 Years: > 450 pg/mL50-75 Years: > 900 pg/mL>75 Years: > 1800 pg/mL Neutrophil percentageOrdered By: Armando Weems on 12-05-2024 Neutrophils/100 WBC (Bld) 50.1 % 47-70 [facility] Nucleated red blood cell per centageOrdered By: Armando Weems on 12-05-2024 Nucleated RBC/100 WBC (Bld) [Ratio] 0 % 0-5 [facility] Platelet countOrdered By: Joelle Weems on 12-05-2024 Platelets (Bld) [#/Vol] 321 10*3/uL 150-450 [facility] Potassium measurement (mass/ volume)Ordered By: Armando Weems on 12-05-2024 Potassium (Unsp spec) [Mass/Vol] 3.6 mmol/L 3.3-5.1 [facility] RBC Auto (Bld) [#/Vol]Ordere d By: Armando Weems on 12-05-2024 RBC (Bld) [#/Vol] 4.03 10*6/uL Low 4.2-5.4 [facility] Serum creatinine measurement (mass/volume)Ordered By: Armando Weems on 12-05-2024 Creatinine [Mass/Vol] 0.78 mg/dL 0.70-1.20 [facility] Serum glucose measurement (m ass/volume)Ordered By: Armando Weems on 12-05-2024 Glucose [Mass/Vol] 127 mg/dL High 70-99 [facility] Serum or plasma calcium martita urement (mass/volume)Ordered By: Armando Weems on 12-05-2024 Calcium [Mass/Vol] 9.9 mg/dL 7.6-11.0 [facility] Serum or plasma urea nitroge n measurement (mass/volume)Ordered By: rAmando Weems on 12-05-2024 Urea nitrogen [Mass/Vol] 13 mg/dL 4-19 [facility] Sodium levelOrdered By: Vinicio Weems on 12-05-2024 Sodium [Moles/Vol] 140 mmol/L 133-145 [facility] Troponin T HS 2 HRon 025 Trop T High Sen Normal <=14 [facility] Comment on above: Result Comment: PT D ISCHARGED Performed By: #### L 499.0042 ####[facility] [address] [place], [address] Troponin T.cardiac [Mass/vol ume] in Serum or Plasma by High sensitivity methodOrdered By: Armando Weems on 12-05-2024 Troponin T.cardiac High sensitivity method [Mass/Vol] < 6 ng/L <14 [facility] White blood cell (WBC) count Ordered By: Armando Weems on 12-05-2024 WBC (Bld) [#/Vol] 9.7 10*3/uL 4.4-11.0 [facility] Podiatric Assistant Office Visit Reporton 10-02-2024 Podiatric Assistant Office Visit Report [place] [facility] [address], [address] [place] [address] OFFICE VISIT Date of Service: 10/02/24 MR#: [id number] Acct: [id number] Name: SPEEDY BLACKWOOD Rep #: [id number] : 1980 Provider: Dr. 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 Normal [facility] CNOVon 09-18-2024 CN Office Visit (FELICITA ) SPEEDY BLACKWOOD ([id number]) 1980 F [place] Date Time Provider Department 09/18/24 9:00 AM NGUYEN KURTZ During your visit today, we recorded the following information about you: Pulse Blood pressure Weight 90/minute 104/68 80.7 kg Nguyen Kurtz APRN.POLITICAL DIRECTOR 09/18/2024 9:02 AM Signed Chief Complaint Patient presents with: Follow Up HPI Speedywilmar Blackwood is a 44 year old female [...] L72.9 - CONSULT TO DERMATOLOGY Nguyen Kurtz APRN.POLITICAL DIRECTOR Allergies As of Date: 09/18/2024 (No Known Allergies) Date Reviewed: 09/18/2024 Reviewed by: Pratibha Ha MA - Fully Assessed Reason for Visit: Follow Up [171] Primary Visit Diagnosis:Generalized skin cysts [L72.9] Order(s):CONSULT TO DERMATOLOGY [9006] Order #: [id number]: 1 FUTURE Prescriptions as of 09/18/2024 - [...] Personal history of tobacco use, presenting haz*06/28/2011 [facility] HIGH RISK NEC [V23.89] [O09.899]07/26/2011 11/22/2013 Leg pain [M79.606] 08/31/2011 Tobacco abuse [Z72.0] 12/26/2013 Depression [F32.A] 12/26/2013 Discogenic pain [GJI7684] 06/19/2014 DDD (degenerative disc disease), lumbar [M51.36*06/19/2014 Chronic back pain [M54.9, G89.29] 06/19/2014 Medications Discontinued D (more content not included)... Normal [facility] CNOVon 09-14-2024 CNOV Office Visit (FAMPWS ) SPEEDY BLACKWOOD ([id number]) 1980 F [place] Date Time Provider Department 09/14/24 9:00 AM NGUYEN KURTZ During your visit today, we recorded the following information about you: Pulse Blood pressure Weight 88/minute 107/74 81 kg Nguyen Kurtz APRN.POLITICAL DIRECTOR 09/14/2024 9:02 AM Signed Chief Complaint Patient [...] - CEPHALEXIN 500 MG CAPSULE Nguyen Kurtz APRN.POLITICAL DIRECTOR Allergies As of Date: 09/14/2024 (No Known [...] Personal history of tobacco use, presenting haz*06/28/2011 [facility] HIGH RISK NEC [V23.89] [O09.899]07/26/2011 11/22/2013 Leg pain [M79.606] 08/31/2011 Tobacco abuse [Z72.0] 12/26/2013 Depression [F32.A] 12/26/2013 Discogenic pain [WWA1876] 06/19/2014 DDD (degenerative disc disease), lumbar [M51.36*06/19/2014 Chronic back pain [M54.9, G89.29] 06/19/2014 Prescriptions ordered this (more content not included)... Normal [facility] CNOVon 08-10-2024 CNOV Office Visit (FELICITA ) SPEEDY BLACKWOOD ([id number]) 1980 F [place] Date Time Provider Department 08/10/24 1:00 PM NGUYEN KURTZ During your visit today, we recorded the following information about you: Pulse Blood pressure Weight 86/minute 113/76 81 kg Nguyen Kurtz, PRODUCTION FLOATER.POLITICAL DIRECTOR 08/10/2024 1:14 PM Signed Chief Complaint Patient [...] C ANTIBODY IA WITH CONFIRMATION Nguyen Kurtz APRN.POLITICAL DIRECTOR Allergies As of Date: 08/10/2024 (No Known Allergies) Date Reviewed: 08/10/2024 Reviewed by: Pratibha Ha MA - Fully Assessed Reason for Visit: Follow Up [171] Primary Visit Diagnosis:Acute pulmonary embolism, unspecified pulmonary embolism type, unspecified whether acute cor pulmonale present (HCC) [I26.99] Other Visit Diagnoses:Lupus anticoagulant positive [R (more content not included)... Normal [facility] HCV Ab Ser Qlon 08-10-2024 HCV Ab Ql (S) Negative Normal Negative [facility] Comment on above: Order Comment: Speci men Type: BLOOD SPECIMENOrdering Facility: [facility] Address: [address] [place] [address] Result Comment: The result suggests no evidence of infection with Hepatitis C virus. Should recent infection be suspected, repeat testing may be considered 4-6 weeks after this draw. Performed By: #### 1 6128-1 ####[facility] NGUYEN [id number] LUCHO STANFORD [address] [place] CNOVon 04-30-2024 CNOV Office Visit (UCWSTR ) SPEEDY BLACKWOOD ([id number]) 1980 F [place] Date Time Provider Department 04/30/24 7:45 AM DOUG VERNON [facility] During your visit today, we recorded the following information about you: Temperature Pulse Respiration Blood pressure 98 degrees 98/minute 16/minute 110/72 Weight 79.5 kg Doug Vernon, LUCERO.POLITICAL DIRECTOR 04/30/2024 8:05 AM Signed Subjective HPI Nontoxic-appearing [...] Patient should start on February 16, 2024. MARILU DVT-PE TREAT 30D START 5 mg (74 [...] up wit (more content not included)... Normal [facility] L7000.0750on 04-19-2024 P ELASTASE,FECA Normal [facility] Comment on above: Result Comment: TEST RESULTS LIMITS Pancreatic Elastase, Fecal >800 ug Elast./g >200 Severe Pancreatic Insufficiency: <100 Moderate Pancreatic Insufficiency: 100 - 200 Normal: >200 TESTING PERFORMED AT [facility]. ORIGINAL REPORT ON FILE IN LAB CONTAINS ADDITIONAL TEST SITE INFORMATION. Performed By: #### L 7000.0750, M100.637, L7000.0700, M100.0605 ####[facility] [id number] [place], [address] Calprotectin, Stoolon [address] Normal [facility] Comment on above: Result Comment: TEST RESULTS LIMITS Calprotectin, Fecal <5 ug/g 0-120 Concentration Interpretation Follow-Up < 5 - 50 ug/g Normal None >50 -120 ug/g Borderline Re-evaluate in 4-6 weeks >120 ug/g Abnormal Repeat as clinically indicated TESTING PERFORMED AT [facility]. ORIGINAL REPORT ON FILE IN LAB CONTAINS ADDITIONAL TEST SITE INFORMATION. Performed By: #### L 7000.0750, M100.637, L7000.0700, M100.0605 ####[facility] [id number] [facility] [place], [address] Colonoscopy Reporton 024 Colonoscopy Report [facility] Medical Records Department [address] [place] [address] Colonoscopy Report MR#: [id number] Acct: [id number] Name: SPEEDY BLACKWOOD Rep #: [id number] : 1980 43 From: Jovan Hidalgo DO PCP: CONRAD Miller Status:[facility] Patient Name: Speedy Blackwood Procedure Date: 03/28/2024 [...] pathology results. Procedure Code(s): --- Professional --- 98338, Colonoscopy, flexible; with biopsy, single or multiple CPT copyright 2021 [employer]. All rights reserved. The codes documented in this report are preliminary and upon crm administrator review may be revised to meet current compliance requirements. Jovan Hidalgo DO 03/28/2024 2:46:11 PM This report has been signed electronically. Number of Addenda: 0 Note Initiated On: 03/28/2024 2:18 PM 03/28/24 1446 Date Jovan Hidalgo DO Cosigner Signature: Date (if indicated) CC: CONRAD Kurtz; Jovan Hidalgo DO Date Dictated: 03/28/24 1418 Date Transcribed: Cafeteria Cashier: PATRICE Signed Normal [facility] EGD Reporton 03-28-2024 EGD Report [facility] Medical Records Department [address] [place] [address] EGD Report MR#: [id number] Acct: [id number] Name: SPEEDY BLACKWOOD Rep #: [id number] : 1980 43 From: Jovan Hidalgo DO PCP: CONRAD Miller Status:[facility] Patient Name: Speedy Blackwood Procedure Date: 03/28/2024 [...] present medications. Procedure Code(s): --- Professional --- 36227, Esophagogastroduodenoscopy, flexible, transoral; with insertion of guide wire followed by passage of dilator(s) through esophagus over guide wire 87184, 59,51, Esophagogastroduodenoscopy, flexible, transoral; with biopsy, single or multiple CPT copyright 2021 [employer]. All rights reserved. The codes documented in this report are preliminary and upon crm administrator review may be revised to meet current compliance requirements. Jovan Hidalgo DO 03/28/2024 2:44:35 PM This report has been signed electronical (more content not included)... [facility] MR/POSTOP.[facility] 03-28-2024 MR/POSTOP.[facility] Medical Records Department [address] [place] [address] Anesthesia Postop Eval I 03/28/24 1442 MR#: [id number] Acct: [id number] Name: SPEEDY BLACKWOOD Rep #: [id number] : 1980 43 From: Arjun Waterman PCP: CRISTEL MillerC Status:REG SDC Y Race: C Location: [place] [address] Anesthesia: Postop Eval I Current Vital Signs [...] Arjun Loya Signature: Date CC: Signed Normal [facility] MR/[id number] 03-28-2024 MR/POSTOPAN2 [facility] Medical Records Department [address] [facility] [place] [address] Anesthesia Postop Eval II 03/28/24 1632 MR#: [id number] Acct: [id number] Name: SPEEDY BLACKWOOD Rep #: [id number] : 1980 43 From: Phil Pinto MD PCP: Nguyen Kurtz TRAINING ADMINISTRATOR-C Status:[facility] Y Race: C Location: EN Anesthesia Postop [...] Phil Loya Signature: Date CC: Signed Normal [facility] Special Stain Group Ion 03-16 Special Stain Group I --------- Patient Age/Sex Location Account Attending Physician SPEEDY BLACKWOOD 43/F EN [id number] Jovan Hidalgo DO Specimen: [id number] Received: 03/29/24 Status: YELENA Boyle Num: [id number] Spec Type: EGD BIOPSY Subm Dr: Jovan Hidalgo DO HEADKATIANA OPERATION: Colonoscopy, EGD with biopsy, dilatation PRE-OP [...] colonic mucosa, no pathologic diagnosis. See comment. LJ. 03/30/2024 COMMENT A. Alcian blue/PAS stain with [...] the patient's name and designated Distal esophagus biopsy. The specimen consists of multiple irregular fragments of light irwin soft tissue that in aggregate measure 2.0 x 0.3 x 0.1 cm. The specimen is totally submitted in one cassette. B. Received in fixative is one container labeled with the patient's name and designated Terminal ileum biopsy. The specimen consists of one irregular fragment of light irwin soft tissue that measures 0.6 x 0.2 x 0.1 cm. The specimen is totally submitted in one cassette. Patient Age/Sex Location Account Attending Physician SPEEDY BLACKWOOD 43/F EN [id number] Jovan Hidalgo, DO C. Received in fixative is one container labeled with the patient's name and designated Random colon biopsy. The specimen consists of multiple irregular fragments of light irwin soft tissue that in aggregate measure 1.2 x 0.5 x 0.1 cm. The specimen is totally submitted in one cassette. 03/29/2024 TC:3 CPT:55490y4,83201 Patient Age/Sex Location Account Attending Physician SPEEDY BLACKWOOD 43/F EN [id number] Jovan Hidalgo, DO Signed (signature on file) Dr. Freddy Black MD 03/30/24 1105 Normal [facility] Comment on above: Performed By: #### P SSI ####[facility] [id number] [place], [address] ENTERIC PATHOGEN PANEL STOOL on 03-21-2024 EP PANEL OFFICE CALLED. LEFT MESSAGE FOR THE, TO RETURN CALL 03/19/24 1340 VSICK REPORT HAND DELIVERED TO OFFICE 03/20/24 0920 VSICK Normal Reference Range = Not Detected GI pathogens Pnl Stl CHITO+probe Copy of report sent to Infection Control Printer [id number] 03/19/24 1341 VSICK. SAMPLE FORWARDED TO [facility]. GI pathogens Pnl Stl CHITO+probe RESULTS CALLED TO NURSE VM 03/19/24 1300 VS. Campylobacter species detected to [...] and sensitive. GI pathogens Pnl Stl CHITO+probe [facility] GI pathogens Pnl Stl CHITO+probe NO SALMONELLA [...] by YAZAN Previously reported as: final Normal [facility] Comment on above: Performed By: #### L 7000.0750, M100.637, L7000.0700, M100.0605 ####[facility] [id number] [place], [place], [address] BETA 2 GLYCOPROTEIN 1, IGAon 03-20-2024 BETA 2 GLYCOPROTEIN 1, IGA <10 Normal <=20 [facility] Comment on above: Order Comment: Speci men Type: BLOOD SPECIMEN [facility] Address: [address] [address] Result Comment: Perf ormed By: Dispop [address] [place] [address] Rehabilitation Assistant: Ciro Horn MD, PhD CLIA Number: [id number] Performed By: #### P TGEN #### [facility] CLIA [id number] [address] [place] [address] [place] BETA 2 GLYCOPROTEIN, IGGon 1 05-20-2023 Beta 2 glycoprotein 1 IgG IA Qn <9 Normal <20 [facility] Comment on above: Order Comment: Speci men Type: BLOOD SPECIMEN [facility] Address: [address] [place] [address] Result Comment: <20 SGU Negative 20-80 SGU [...] P TGEN #### [facility] ILLUMINA LIMS CLIA [id number] [address] [place] [address] [place] BETA 2 GLYCOPROTEIN, IGMon 1 05-20-2023 Beta 2 glycoprotein 1 IgM IA Qn <9 Normal <20 [facility] Comment on above: Order Comment: Speci men Type: BLOOD SPECIMEN [facility] Address: [address] [place] [address] Result Comment: <20 SMU Negative 20-80 SMU [...] P TGEN #### [facility] ILLUMINA LIMS CLIA [id number] [address] [place] [address] [place] C3 SerPl-mCncon 03-20-2024 Complement C3 [Mass/Vol] 189 mg/dL High 86-166 [facility] Comment on above: Order Comment: Speci men Type: BLOOD SPECIMENOrdering Facility: [facility] Address: [address] [place] [address] Performed By: #### 4 485-9, 4498-2, 47632-1 ####[facility] LABCLIA [id number] [place] [address] [place] C4 SerPl-mCncon 03-20-2024 Complement C4 [Mass/Vol] 19 mg/dL Normal 13-46 [facility] Comment on above: Order Comment: Speci men Type: BLOOD SPECIMENOrdering Facility: [facility] Address: [address] [place] [address] Performed By: #### 4 485-9, 4498-2, 72432-2 ####[facility] [id number] [place] [address] [place] CARDIOLIPIN IGG ABSon 2023 Cardiolipin IgG IA Qn (S) <9.0 Normal <15.0 [facility] Comment on above: Order Comment: Speci [facility] Type: BLOOD SPECIMEN [facility] Address: [address] [place] [address] Result Comment: <15 GPL Negative 15-20 GPL [...] P TGEN #### [facility] ILLUM[facility] CLIA [id number] [address] [place] [address] [place] CARDIOLIPIN IGM ABSon 2023 Cardiolipin IgM IA Qn (S) 9.5 MPL Normal <12.5 [facility] Comment on above: Order Comment: Speci men Type: BLOOD SPECIMEN [facility]: [facility] Address: [address] [place] [address] Result Comment: <12. 5 MPL Negative 12.5-20 [...] By: #### P TGEN #### [facility] STEPHAN CHEN [id number] [address] [place] [address] [facility] CNOVon 03-20-2024 CNOV Office Visit (LIDA ) SPEEDY BLACKWOOD ([id number]) 1980 F [place] Date Time Provider Department 03/20/24 1:00 PM JUSTIN WHITESIDE During your visit today, we recorded the following information about you: Pulse Blood pressure Weight Height 91/minute 119/71 75.3 kg 1.626 m Justin Whiteside MD 03/20/2024 2:11 PM Signed Justin Whiteside MD Speedy Blackwood March 19, 2024 Referring Provider:Nguyen Kurtz PCP: Nguyen Kurtz APRN.POLITICAL DIRECTOR Chief Complaint: Patient presents with: Consult HPI:Speedy [...] 1 capsule by mouth daily at bedtime. L.ACID/L.CASEI/B.BIF/B.KAVYA/ FOS (PROBIOTIC BLEND ORAL) Take 1 capsule by mouth once daily. No current facility-administered medications for this visit. ALLERGIES No Known Allergies Physical Exam: BP 119/71 Pulse 91 Ht 5' 4 (1.63m) Wt 166 lb (75.3kg) LMP 08/15/2018 [...] Not tender (more content not included)... Normal [facility] Cardiolipin IgA Ser IA-aCnco n 03-20-2024 Cardiolipin IgA IA Qn (S) <9.0 Normal <12.0 [facility] Comment on above: Order Comment: Speci men Type: BLOOD SPECIMEN [facility] Address: [address] [place] [address] Result Comment: <12 APL Negative 12-20 APL Indeterminate >20 APL Positive The following results were obtained with the 4Cable TVva QUANTA Lite KALYAN IgA III HANNAH. Cardiolipin IgA values obtained with the different manufacturers' assay methods may not be used interchangeably. The magnitude of the reported IgA levels cannot be correlated to an endpoint titer. Performed By: #### P TGEN #### [facility] CLIA [id number] [address] [place] [address] [place] [address] [place] Centromere Ab IF Ql (S)on Centromere Ab Qn (S) <0.2 Normal <1.0 [facility] Comment on above: Order Comment: Speci men Type: BLOOD SPECIMENOrdering Facility: [facility] Address: [address] [place] [address] Result Comment: Anti -centromere antibody is used as in aid in diagnosis of systemic sclerosis. Clinical correlation is required. Test Methodology: Multiplex flow immunoassay. Performed By: #### 1 8323-6, 66614-8, 91319-0, 33960-0, 85325-5, 61696-2 ####[facility] [id number] [place] [address] [place] CENTROMERE AB QUAL Negative Normal Negative [facility] Comment on above: Order Comment: Speci men Type: BLOOD SPECIMENOrdering Facility: [facility] Address: [address] [place] [address] Performed By: #### 1 8323-6, 46751-3, 73516-0, 11974-8, 32819-3, 65158-7 ####[facility] [id number] [place] [address] [place] Chromatin Ab Qnon 03-20-2024 CHROMATIN AB QUAL Negative Normal Negative [facility] Comment on above: Order Comment: Speci men Type: BLOOD SPECIMENOrdering Facility: [facility] Address: [address] [place] [address] Performed By: #### 2 9374-6, 93254-4, 28815-8 ####[facility] LABIA [id number] [place] [address] [place] Chromatin Ab SerPl-aCncon Chromatin Ab Qn <0.2 Normal <1.0 [facility] Comment on above: Order Comment: Speci men Type: BLOOD SPECIMENOrdering Facility: [facility] Address: [address] [place] [address] Result Comment: Test Methodology: Multiplex flow immunoassay. Performed By: #### 2 9374-6, 91066-8, 72492-5 ####[facility] LABCLIA [id number] [place] [address] [place] Cyclic citrullinated peptide IgG Qnon 03-20-2024 CCP ANTIBODY IGG QUALITATIVE Negative Normal Negative [facility] Comment on above: Order Comment: Speci men Type: BLOOD SPECIMEN [facility] Address: [address] [place] [address] Performed By: #### P TGEN #### [facility] CLIA [id number] [address] [place] [address] [place] DNA double strand Ab IA Qn ( S)on 03-20-2024 DNA ANTIBODY 8 IU/mL Normal <=200 [facility] Comment on above: Order Comment: Speci men Type: BLOOD SPECIMENOrdering Facility: [facility] Address: [address] [place] [address] Result Comment: Nega tive: <200 IU/mL Equivocal: 201-300 IU/mL Moderate Positive: 301-800 IU/mL Strong Positive: >801 IU/mL Performed By: #### 3 2677-7 ####[facility] LABIA [id number] [place] [address] [place] DNA ANTIBODY QUALITATIVE INTERPRETATION Negative Normal Negative [facility] Comment on above: Order Comment: Speci men Type: BLOOD SPECIMENOrdering Facility: [facility] Address: [address] [place] [address] Performed By: #### 3 2677-7 ####[facility] LABCLIA [id number] [place] [address] [place] PRANAV Jo1 Ab Ser-aCncon 2023 Sarah-1 extractable nuclear Ab Qn (S) <0.2 Normal <1.0 [facility] Comment on above: Order Comment: Speci men Type: BLOOD SPECIMENOrdering Facility: [facility] Address: [address] [place] [address] Performed By: #### 1 8323-6, 43653-4, 36797-1, 98656-1, 30561-4, 49734-5 ####[facility] LABCLIA [id number] [place] [address] [place] PRANAV SUPERVISOR REWORK Ab Ser-aCncon 2023 Ribonucleoprotein extractable nuclear Ab Qn (S) <0.2 Normal <1.0 [facility] Comment on above: Order Comment: Speci men Type: BLOOD SPECIMENOrdering Facility: [facility] Address: [address] [place] [address] Performed By: #### 2 9374-6, 79742-2, 95660-2 ####[facility] LABIA [id number] [place] [address] [place] PRANAV SM IgG Ser-aCncon 2023 Rajput extractable nuclear IgG Qn (S) <0.2 Normal <1.0 [facility] Comment on above: Order Comment: Speci men Type: BLOOD SPECIMENOrdering Facility: [facility] Address: [address] [place] [address] Performed By: #### 1 8323-6, 73698-6, 24981-1, 00493-3, 82675-0, 93525-0 ####[facility] LABIA [id number] [place] [address] [place] PRANAV SS-A Ab Ser-aCncon 03-20 Sjogrens syndrome-A extractable nuclear Ab Qn (S) <0.2 Normal <1.0 [facility] Comment on above: Order Comment: Speci men Type: BLOOD SPECIMENOrdering Facility: [facility] Address: [address] [place] [address] Result Comment: Test Methodology: Multiplex flow immunoassay. Performed By: #### 2 9374-6, 78520-9, 65882-3 ####[facility] LABCLIA [id number] [place] [address] [place] PRANAV SS-B Ab Ser-aCncon 03-20 Sjogrens syndrome-B extractable nuclear Ab Qn (S) <0.2 Normal <1.0 [facility] Comment on above: Order Comment: Rosendo zuleta Type: BLOOD SPECIMENOrdering Facility: [facility] Address: [address] [place] [address] Result Comment: Anti -SSB (anti-La) antibody is used as an aid in diagnosis of a variety of systemic autoimmune diseases, especially for Sjogren's syndrome and systemic lupus erythematosus. Clinical correlation is required. Test Methodology: Multiplex flow immunoassay. Performed By: #### 1 8323-6, 99749-1, 94334-5, 47362-9, 10138-1, 98662-7 ####[facility] LABCLIA [id number] [place] [address] [place] ESR Westergren method (Bld) [Velocity]on 03-20-2024 ESR (Bld) [Velocity] 2 mm/h [facility] Interpretation and review of laboratory results Normal [facility] ESR (Bld) [Velocity] 2 mm/h Normal 0-20 [facility] Comment on above: Order Comment: Rosendo zuleta Type: BLOOD SPECIMENOrdering Facility: [facility] Address: [address] [place] [address] Performed By: #### 4 537-7 ####[facility] LABIA [id number] [place] [address] [place] Sarah-1 extractable nuclear Ab Qn (S)on 03-20-2024 SARAH 1 ANTIBODY QUAL Negative Normal Negative [facility] Comment on above: Order Comment: Rosendo zuleta Type: BLOOD SPECIMENOrdering Facility: [facility] Address: [address] [place] [address] Result Comment: Anti -SARAH-1 antibody is used as an aid in diagnosis of polymyositis and dermatomyositis especially with pulmonary involvement. A negative result cannot rule out polymyositis or dermatomyositis. Clinical correlation is required. Test Methodology: Multiplex flow immunoassay. Performed By: #### 1 8323-6, 42785-9, 25916-3, 24968-9, 16441-0, 22678-7 ####[facility] LABCLIA [id number] [place] [address] [place] Nuclear Ab IA Ql (S)on 03-20 COLETTE SCR QUAL Negative Normal Negative [facility] Comment on above: Order Comment: Speci men Type: BLOOD SPECIMENOrdering Facility: [facility] Address: [address] [place] [address] Result Comment: The qualitative antinuclear antibody screen test performed using the following antigens: dsDNA, Chromatin, Ribosomal P, SS-A 60, SS-A 52, SS-B, Sm, SmRNP, SUPERVISOR REWORK A, SUPERVISOR REWORK 68, Scl-70, Sarah-1, and Centromere B. Methodology: Multiplex flow immunoassay. Performed By: #### 1 8323-6, 11455-5, 16841-8, 43727-3, 65018-9, 56815-8 ####[facility] LABIA [id number] [place] [address] [place] Rheumatoid fact SerPl-aCncon 03-20-2024 Rheumatoid factor Qn [IU]/mL Normal <16 [facility] Comment on above: Order Comment: Speci men Type: BLOOD SPECIMENOrdering Facility: [facility] Address: [address] [place] [address] Performed By: #### 4 485-9, 4498-2, 90879-2 ####[facility] LABIA [id number] [place] [address] [place] Ribonucleoprotein extractabl e nuclear Ab Qn (S)on 03-20-2024 ANTI-SUPERVISOR REWORK QUAL Negative Normal Negative [facility] Comment on above: Order Comment: Speci men Type: BLOOD SPECIMENOrdering Facility: [facility] Address: [address] [place] [address] Performed By: #### 2 9374-6, 85820-6, 05336-6 ####[facility] LABCLIA [id number] [place] [address] [place] RIBOSOMAL SUPERVISOR REWORK QUAL Negative Normal Negative [facility] Comment on above: Order Comment: Rosendo zuleta Type: BLOOD SPECIMENOrdering Facility: [facility] Address: [address] [place] [address] Result Comment: Anti -Ribosomal RNA (Ribosomal P) antibody is used as an aid in diagnosis of systemic autoimmune diseases especially systemic lupus erythematosus and mixed connective tissue disease. Cross-reactivity with Anti-rajput antibody is not uncommon. Clinical correlation is required. Test Methodology: Multiplex flow immunoassay. Performed By: #### 2 9374-6, 15105-4, 45998-9 ####[facility] LABIA [id number] [place] [address] [place] SCL-70 extractable nuclear I gG IA Qn (S)on 03-20-2024 SCLERODERMA AB QUAL Negative Normal Negative [facility] Comment on above: Order Comment: Rosendo zuleta Type: BLOOD SPECIMENOrdering Facility: [facility] Address: [address] [place] [address] Performed By: #### 1 8323-6, 72569-9, 07287-8, 68331-8, 40132-3, 99275-5 ####[facility] LABIA [id number] [place] [address] [place] SCLERODERMA IGG AB <0.2 Normal <1.0 [facility] Comment on above: Order Comment: Rosendo zuleta Type: BLOOD SPECIMENOrdering Facility: [facility] Address: [address] [place] [address] Result Comment: Scl- 70/Scleroderma antibody test is used as an aid in diagnosis of systemic sclerosis especially the diffuse cutaneous form. A negative result cannot rule out systemic sclerosis. The final interpretation should consider clinical picture and other test results such as anti-centromere antibody. Test Methodology: Multiplex flow immunoassay. Performed By: #### 1 8323-6, 10852-5, 97397-5, 52124-3, 66754-4, 19482-5 ####[facility] LABIA [id number] [place] [address] [place] Sjogrens syndrome-A extracta ble nuclear Ab Qn (S)on 03-20-2024 SSA ANTIBODY QUAL Negative Normal Negative [facility] Comment on above: Order Comment: Speci men Type: BLOOD SPECIMENOrdering Facility: [facility] Address: [address] [place] [address] Performed By: #### 2 9374-6, 88047-7, 11565-1 ####[facility] LABIA [id number] [place] [address] [place] Sjogrens syndrome-B extracta ble nuclear Ab Qn (S)on 03-20-2024 SSB ANTIBODY QUAL Negative Normal Negative [facility] Comment on above: Order Comment: Speci men Type: BLOOD SPECIMENOrdering Facility: [facility] Address: [address] [place] [address] Performed By: #### 1 8323-6, 74827-3, 78670-4, 50281-8, 28224-1, 45188-2 ####[facility] [id number] [address] [place] Rajput extractable nuclear Ig G Qn (S)on 03-20-2024 SM ANTIBODY QUAL Negative Normal Negative [facility] Comment on above: Order Comment: Speci men Type: BLOOD SPECIMENOrdering Facility: [facility] Address: [address] [place] [address] Result Comment: Anti -Sm (Rajput) antibody is used as an aid in diagnosis of systemic lupus erythematosus and its presence is associated with renal disease. A negative result cannot rule out systemic lupus erythematosus. Clinical correlation is required. Test Methodology: Multiplex flow immunoassay. Performed By: #### 1 8323-6, 59433-2, 13649-7, 28718-2, 58971-7, 70935-4 ####[facility] LABIA [id number] [place] [address] [place] cCP IgG SerPl-aCncon 024 Cyclic citrullinated peptide IgG Qn <15 Normal <20 [facility] Comment on above: Order Comment: Speci men Type: BLOOD SPECIMEN [facility] Address: [address] [place] [address] Performed By: #### P TGEN #### [facility] CLIA [id number] [address] [place] [address] OF [place] ENTERIC PATHOGEN PANEL STOOL on [...] Not Detected Campylobacter species Salmonella Sp. Normal [facility] Comment on above: Performed By: #### M 100.0605, M100.637 #### [facility] Laboratory [address] [place], [address] Stool Lactoferrin/WBCon WBCST Normal Reference Ran ge = Negative Fecal WBC Lactoferrin Negative: No Fecal WBC Lactoferrin present Normal [facility] Comment on above: Performed By: #### M 100.0605, M100.637 #### [facility] Laboratory [address] [place], [address] WBCST OFFICE CALLED. LEFT MESSAGE FOR THE, TO RETURN CALL 03/19/24 1340 VSICK Normal Reference Range = Negative Fecal WBC Lactoferrin Negative: No Fecal WBC Lactoferrin present Normal [facility] Comment on above: Performed By: #### L 7000.0750, M100.637, L7000.0700, M100.0605 ####[facility] [address] [place], [address] Gastroenterology Visit Repor ton 02-23-2024 Gastroenterology Visit Report [facility] Gastroenterology [address] [place] [address] OFFICE VISIT Date of Service: 02/23/24 MR#: [id number] Acct: [id number] Name: SPEEDY BLACKWOOD Rep #: [id number] : 1980 Provider: SELVIN Escoto Age/Sex: 43/F Location: [facility] Status: Signed Intake Vital Signs 01/17/24 12:07 [...] feeling like someone is squeezing her chest [facility] Medical History (Updated 02/23/24 @ 11:04 by [...] to the office today for establishment with [facility]. Pt has a past medical hx [...] memory lo (more content not included)... Normal [facility] Basic Metabolic Profile (BMP )on 01-31-2024 BUN/CRE 12.1 RATIO Normal 10-20 [facility] Comment on above: Order Comment: 1Y Performed By: #### L 100.0100, L500.2500, L501.5425 ####[facility] [address] [place], [address] CA,Total 9.2 mg/dL Normal 8.5-10.1 [facility] Comment on above: Order Comment: 1Y Performed By: #### L 100.0100, L500.2500, L501.5425 ####[facility] [address] [place], [address] Chloride [Moles/Vol] 104 mmol/L Normal 98-107 [facility] Comment on above: Order Comment: 1Y Performed By: #### L 100.0100, L500.2500, L501.5425 ####[facility] [address] [place], [address] CO2 [Moles/Vol] 31.0 mmol/L Normal 21.0-32.0 [facility] Comment on above: Order Comment: 1Y Performed By: #### L 100.0100, L500.2500, L501.5425 ####[facility] [address] [place], [address] Creatinine [Mass/Vol] 0.74 mg/dL Normal 0.55-1.02 [facility] Comment on above: Order Comment: 1Y Result Comment: The validity of the calculated GFR GFRAA in patients over 70 years has not been determined. Clinical correlation is essential. Performed By: #### L 100.0100, L500.2500, L501.5425 ####[facility] [address] [place], [address] ECRCL 106.55 ml/min Normal [facility] Comment on above: Order Comment: 1Y Performed By: #### L 100.0100, L500.2500, L501.5425 ####[facility] [address] [place], [address] EST GFR - AA 108 mL/min Normal >60 [facility] Comment on above: Order Comment: 1Y Result Comment: Afri can Beninese GFR Calc Performed By: #### L 100.0100, L500.2500, L501.5425 ####[facility] [address] [place], [address] GAP 6 Normal 5-15 [facility] Comment on above: Order Comment: 1Y Performed By: #### L 100.0100, L500.2500, L501.5425 ####[facility] [address] [place], [address] GFR/1.73 sq M.predicted among non-blacks MDRD (S/P/Bld) [Vol rate/Area] 90 mL/min/{1.73_m2} Normal >60 [facility] Comment on above: Order Comment: 1Y Result Comment: Non- GFR Calc Performed By: #### L 100.0100, L500.2500, L501.5425 ####[facility] [address] [place], [address] Glucose [Mass/Vol] 86 mg/dL Normal 74-106 [facility] Comment on above: Order Comment: 1Y Performed By: #### L 100.0100, L500.2500, L501.5425 ####[facility] [address] [place], [address] Potassium [Moles/Vol] 3.6 mmol/L Normal 3.5-5.1 [facility] Comment on above: Order Comment: 1Y Performed By: #### L 100.0100, L500.2500, L501.5425 ####[facility] [address] [place], [address] Sodium [Moles/Vol] 141 mmol/L Normal 136-145 [facility] Comment on above: Order Comment: 1Y Performed By: #### L 100.0100, L500.2500, L501.5425 ####[facility] [address] [place], [address] Urea nitrogen [Mass/Vol] 9 mg/dL Normal 7-18 [facility] Comment on above: Order Comment: 1Y Performed By: #### L 100.0100, L500.2500, L501.5425 ####[facility] [address] [place], [address] CBC W/Diff, Automatedon 09-05 22-2023 Absolute Lymph 2.88 X10 3/uL Normal 0.83-4.51 [facility] Comment on above: Performed By: #### L 100.0100, L500.2500, L501.5425 ####[facility] [address] [place], [address] Absolute Neut 3.2 X10 3/uL Normal 2.0-7.7 [facility] Comment on above: Performed By: #### L 100.0100, L500.2500, L501.5425 ####[facility] [address] [place], [address] Basophils/100 WBC (Bld) 0.9 % Normal 0-1 [facility] Comment on above: Performed By: #### L 100.0100, L500.2500, L501.5425 ####[facility] [address] [place], [address] Eosinophils/100 WBC (Bld) 4.8 % Normal 0-5 [facility] Comment on above: Performed By: #### L 100.0100, L500.2500, L501.5425 ####[facility] [address] [place], [address] Erythrocyte distribution width (RBC) [Ratio] 11.7 % Normal 11.6-14.6 [facility] Comment on above: Performed By: #### L 100.0100, L500.2500, L501.5425 ####[facility] [address] [place], [address] Hematocrit (Bld) [Volume fraction] 37.5 % Normal 37-47 [facility] Comment on above: Performed By: #### L 100.0100, L500.2500, L501.5425 ####[facility] [address] [place], [address] Hemoglobin (Bld) [Mass/Vol] 12.9 g/dL Normal 12.0-15.0 [facility] Comment on above: Performed By: #### L 100.0100, L500.2500, L501.5425 ####[facility] [address] [place], [address] IG% 0.900 Normal 0.0-0.9 [facility] Comment on above: Result Comment: IG% - Immature Granulocytes (promyelocytes, myelocytes and metamyelocytes) > 1% indicates that a LEFT SHIFT is Present. Performed By: #### L 100.0100, L500.2500, L501.5425 ####[facility] [address] [place], [address] Lymphocytes/100 WBC (Bld) 41.0 % Normal 19-41 [facility] Comment on above: Performed By: #### L 100.0100, L500.2500, L501.5425 ####[facility] [address] [place], [address] MCH (RBC) [Entitic mass] 31.4 pg Normal 27.0-32.0 [facility] Comment on above: Performed By: #### L 100.0100, L500.2500, L501.5425 ####[facility] [address] [place], [address] MCHC (RBC) [Mass/Vol] 34.4 g/dL Normal 32-36 [facility] Comment on above: Performed By: #### L 100.0100, L500.2500, L501.5425 ####[facility] [address] [place], [address] MCV (RBC) [Entitic vol] 91.2 fL Normal 81-99 [facility] Comment on above: Performed By: #### L 100.0100, L500.2500, L501.5425 ####[facility] [address] [place], [address] Monocytes/100 WBC (Bld) 6.6 % Normal 0-10 [facility] Comment on above: Performed By: #### L 100.0100, L500.2500, L501.5425 ####[facility] [address] [place], [address] Neutrophils/100 WBC (Bld) 45.8 % Low 47-70 [facility] Comment on above: Performed By: #### L 100.0100, L500.2500, L501.5425 ####[facility] [address] [place], [address] Nucleated RBC (Bld) [#/Vol] 0 10*3/uL Normal 0-5 [facility] Comment on above: Performed By: #### L 100.0100, L500.2500, L501.5425 ####[facility] [address] [place], [address] Platelet mean volume (Bld) [Entitic vol] 8.9 fL Normal 6.2-12.0 [facility] Comment on above: Performed By: #### L 100.0100, L500.2500, L501.5425 ####[facility] [address] [place], [address] Platelets (Bld) [#/Vol] 392 10*3/uL Normal 150-450 [facility] Comment on above: Performed By: #### L 100.0100, L500.2500, L501.5425 ####[facility] [address] [place], [address] RBC (Bld) [#/Vol] 4.11 10*6/uL Low 4.2-5.4 [facility] Comment on above: Performed By: #### L 100.0100, L500.2500, L501.5425 ####[facility] [address] [place], [address] RDW SD 38.9 fl Normal 35.1-43.9 [facility] Comment on above: Performed By: #### L 100.0100, L500.2500, L501.5425 ####[facility] [address] [place], [address] WBC (Bld) [#/Vol] 7.0 10*3/uL Normal 4.4-11.0 [facility] Comment on above: Performed By: #### L 100.0100, L500.2500, L501.5425 ####[facility] [address] [place], [address] [facility] SPEEDY BLACKWOOD ([id number]) 1980 F [place] Date Time Provider Department [...] fever, difficulty breathing, cough Protocols used: Chest Pdhi-GNYER-NY Allergies As of Date: 01/31/2024 (No Known [...] capsule by mouth daily at bedtime. - L.ACID/L.CASEI/B.BIF/B.KAVYA/ FOS (PROBIOTIC BLEND ORAL) Take 1 capsule by mouth once daily. Problem List As Of Date 01/31/2024 Noted Resolved Cholelithiasis NOS [K80.20] 10/02/2007 06/28/2011 Abdominal pain, right upper quadrant [R10.11] 06/28/2011 Elev transaminase/LDH [R74.01, R74.02] 06/28/2011 Personal history of tobacco use, presenting haz*06/28/2011 [facility] HIGH RISK NEC [V23.89] [O09.899]07/26/2011 11/22/2013 Leg [...] Status:Closed by SHAWN BIRCH on 01/31/24 Normal [facility] Chest 1 View (Portable)on Chest 1 View (Portable) [facility] Imaging Services [address] [facility] [address] Chest 1 View (Portable) MR#: [id number] Acct: [id number] Name: SPEEDY BLACKWOOD Rep #: [id number] : 1980 F 43 From: Doug Tracey MD PCP: CONRAD Miller Status: REG ER Study: Chest 1 View (Portable) Date of Exam: 01/31/24 Exam# [id number] Ordering Dr: Chato Arndt DO 2:[id number] STUDY: X-RAY CHEST REASON FOR EXAM: Female, [...] Signed: Doug Tracey MD at 19:06 EDT Reading Location ID and State: [facility] [place] Tel , Service support , CC: TRAINING ADMINISTRATOR-C Nguyen Kurtz; Dr. Chato Arndt DO Cafeteria Cashier: Signed Normal [facility] Emergency Department Summary on 01-31-2024 Emergency Department Summary [facility] Medical Records Department [address] [place] [address] Emergency Department Summary 01/31/24 MR#: [id number] Acct: [id number] Name: SPEEDY BLACKWOOD Rep #: [id number] : 1980 43 From: Chato Arndt DO [...] intact bilaterall (more content not included)... Normal [facility] L501.4020on 01-31-2024 TROPONIN-I HS < 3 Low 3.0-54.0 [facility] Comment on above: Result Comment: Plea se Note: New Test Units and Gender Specific Reference Ranges. For more information see Policy Stat Procedure [place] High Sensitivity Troponin (TNIH) and attachments. Performed By: #### L 501.4020 #### [facility] Laboratory [address] [place], [address] l501.5425on 01-31-2024 TROPONIN-I HS 3 pg/mL Normal 3.0-54.0 [facility] Comment on above: Order Comment: 1Y Result Comment: Plea se Note: New Test Units and Gender Specific Reference Ranges. For more information see Policy Stat Procedure [place] High Sensitivity Troponin (TNIH) and attachments. Performed By: #### L 100.0100, L500.2500, L501.5425 ####[facility] [address] [place], [place], [address] [facility] 01-26-2024 [facility] SPEEDY BLACKWOOD ([id number]) 1980 F [place] Date Time Provider Department 01/26/24 NGUYEN KURTZ [facility] During your visit today, we recorded the following information about you: Nguyen Kurtz, LUCERO.POLITICAL DIRECTOR 01/26/2024 4:56 PM Signed Please let patient [...] take her insurance, assisted with transfer to pupil personnel services director to get appt set up for Rheumatology. Allergies As of Date: 01/26/2024 (No Known Allergies) Date Reviewed: 01/19/2024 Reviewed by: Pratibha Ha MA - Fully Assessed Reason for Visit: Results [95] Primary Visit Diagnosis:Lupus anticoagulant positive [R76.0] Order(s):CONSULT TO RHEUM/IMMUN DISEASE [9039] Order #: [id number]: 1 FUTURE Prescriptions as of 01/27/2024 - [...] capsule by mouth daily at bedtime. - L.ACID/L.CASEI/B.BIF/B.KAVYA/ FOS (PROBIOTIC BLEND ORAL) Take 1 capsule by [...] pain [M54.9, G89.29] 06/19/2014 Encounter Status:Closed by BRENTON BRADFORDHRYN on 01/27/24 Normal [facility] Podiatric Assistant Office Visit Reporton 01-23-2024 Podiatric Assistant Office Visit Report [facility]'s [address], [address] [place] [address] OFFICE VISIT Date of Service: 01/23/24 MR#: [id number] Acct: [id number] Name: SPEEDY BLACKWOOD Rep #: [id number] : 1980 Provider: CONRAD maurice Age/Sex: 43/F Location: [facility] Status: Signed Intake Vital Signs 08/08/23 10:39 01/17/24 12:07 01/23/24 09:55 01/23/24 10:05 Height 5 ft 4 in 5 ft 4 in 5 ft 4 in 5 ft 4 in Weight: 167 lb BMI 28.6 BP 118/79 Intake Visit Reasons: menopause ?s 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 Normal [facility] CARDIOLIPIN IGG ABSon 2023 Cardiolipin IgG IA Qn (S) <9.0 Normal <15.0 [facility] Comment on above: Order Comment: Rosendo zuleta Type: BLOOD SPECIMENOrdering Facility: [facility] Address: [address] [place] [address] Result Comment: <15 GPL Negative 15-20 GPL Indeterminate >20 GPL Positive The following results were obtained with the 4Cable [employer] QUANTA Lite KALYAN IgG III HANNAH. Cardiolipin IgG values obtained with the different manufacturers' assay methods may not be used interchangeably. The magnitude of the reported IgG levels cannot be correlated to an endpoint titer. Performed By: #### 5 076-5, BLAYNE BOBBY ####[facility] LABCLIA [id number] [facility] [place]45[place] [address] [place] CARDIOLIPIN IGM ABSon 2023 Cardiolipin IgM IA Qn (S) 19.0 MPL High <12.5 [facility] Comment on above: Order Comment: Rosendo zuleta Type: BLOOD SPECIMENOrdering Facility: [facility] Address: [address] [place] [address] Result Comment: <12. 5 MPL Negative 12.5-20 MPL Indeterminate >20 MPL Positive The following results were obtained with the [employer] QUANTA Lite KALYAN IgM III HANNAH. Cardiolipin IgM values obtained with the different manufacturers' assay methods may not be used interchangeably. The magnitude of the reported IgM levels cannot be correlated to an endpoint titer. ??? Performed By: #### 5 076-5, BLAYNE BOBBY ####[facility] LABCLIA [id number] [address] [facility] CNOVon 01-19-2024 CNOV Office Visit (FAMPWS ) SPEEDY BLACKWOOD ([id number]) 1980 F [place] Date Time Provider Department 01/19/24 9:00 AM [facility] During your visit today, we recorded the following information about you: Pulse Respiration Blood pressure Weight 94/minute 14/minute 104/67 75.3 kg Nguyen Kurtz APRN.POLITICAL DIRECTOR 01/19/2024 9:01 AM Signed Chief Complaint Patient [...] 1 capsule by mouth daily at bedtime. L.ACID/L.CASEI/B.BIF/B.KAVYA/ FOS (PROBIOTIC BLEND ORAL) Take 1 capsule by [...] INHALER - INHALATIONAL SPACING DEVICE Nguyen Kurtz APRN.POLITICAL DIRECTOR Allergies As of Date: 01/19/2024 (No Known Allergies) Date Reviewed: 01/19/2024 Reviewed by: Pratibha Ha MA - Fully Assessed Reason for Visit: Diarrhea [35] Cmt: X 1 week ER F/U [41] Cmt: Pulmonary embolism Primary Visit Diagnosis:Incontinen (more content not included)... Normal [facility] COAG CORE PANEL BLDon 2023 aPTT Coag (PPP) [Time] 37.0 s High 23.0-32.4 [facility] Comment on above: Order Comment: Speci men Type: BLOOD SPECIMEN Ordering Facility: [facility] Address: [address] [place] [address] Performed By: #### P TGEN #### CLARITY ILLUMINA LIMS CLIA [id number] [address] [place] [address] [place] Fibrinogen Coag (PPP) [Mass/Vol] 722 mg/dL High 200-400 [facility] Comment on above: Order Comment: Speci men Type: BLOOD SPECIMEN Ordering Facility: [facility] Address: [address] [place] [address] Result Comment: [facility] Result rechecked. Frozen Plasma Aliquot Performed By: #### P TGEN #### CLARITY ILLUMINA LIMS CLIA [id number] [address] [place] [address] STATES [facility] INR Coag (PPP) [Relative time] 1.1 {INR} Normal 0.9-1.3 [facility] Comment on above: Order Comment: Speci men Type: BLOOD SPECIMEN Ordering Facility: [facility] Address: [address] [place] [address] Result Comment: Naomi min K Antagonist (VKA) Therapeutic Range: INR 2 to 3 (Target INR of 2.5) Note: For patients treated with VKA drugs, such as warfarin, the [employer] 2012 Guideline recommends [...] to 3.5 (target INR of 3). Winifred DUMAS, et al. Chest 2012, 141:7S-47S Chin RA, et al. [facility] 2017, 70: 252-289 Performed By: #### P TGEN #### CLARITY ILLUMINA LIMS CLIA [id number] [address] [place] [address] [place] PT Coag (PPP) [Time] 11.3 s Normal 9.7-13.0 [facility] Comment on above: Order Comment: Speci men Type: BLOOD SPECIMEN Ordering Facility: [facility] Address: [address] [place] [address] Performed By: #### P TGEN #### CLARITY ILLUMINA LIMS CLIA [id number] [address] [place] [address] [place] CRP SerPl-mCncon 01-19-2024 CRP [Mass/Vol] 7.6 mg/dL High <0.9 [facility] Comment on above: Order Comment: Speci men Type: BLOOD SPECIMENOrdering Facility: [facility] Address: [address] [place] [address] Performed By: #### 1 988-5 ####[facility] LABCLIA [id number] [address] [place] Cardiolipin IgA Ser IA-aCnco n 01-19-2024 Cardiolipin IgA IA Qn (S) <9.0 Normal <12.0 [facility] Comment on above: Order Comment: Speci men Type: BLOOD SPECIMENOrdering Facility: [facility] Address: [address] [place] [address] Result Comment: <12 APL Negative 12-20 APL Indeterminate >20 APL Positive The following results were obtained with the Kapture AudioA Lite KALYAN IgA III HANNAH. Cardiolipin IgA values obtained with the different manufacturers' assay methods may not be used interchangeably. The magnitude of the reported IgA levels cannot be correlated to an endpoint titer. Performed By: #### 5 076-5, BLAYNE BOBBY ####[facility] LABCLIA [id number] [place] [address] [place] HYPERCOAG PANELon 01-19-2024 ANTI XA HZ + DOAC 0.46 High <0.10 [facility] Comment on above: Order Comment: Speci men Type: BLOOD SPECIMENOrdering Facility: [facility] Address: [address] [place] [address] Performed By: #### H COAG ####[facility] LABCLIA [id number] [place] [address] [place] Antithrombin actual/normal Chromogenic method (PPP) [Rel catalytic activity/Vol] 127 % Normal 84-138 [facility] Comment on above: Order Comment: Speci men Type: BLOOD SPECIMENOrdering Facility: [facility] Address: [address] [place] [address] Performed By: #### H COAG ####[facility] LABIA [id number] [place] [address] [place] aPTT Coag (Bld) [Time] 45.7 s High 24.0-35.1 [facility] Comment on above: Order Comment: Speci men Type: BLOOD SPECIMENOrdering Facility: [facility] Address: [address] [place] [address] Performed By: #### H COAG ####[facility] LABIA [id number] [place] [address] [place] APTT SCRN HZ + DOAC 35.1 Normal 24.0-35.1 [facility] Comment on above: Order Comment: Speci men Type: BLOOD SPECIMENOrdering Facility: [facility] Address: [address] [place] [address] Performed By: #### H COAG ####[facility] [id number] [place] [address] [place] Coagulation factor X activated act Coag Qn (PPP) >2.80 High <0.10 [facility] Comment on above: Order Comment: Speci men Type: BLOOD SPECIMENOrdering Facility: [facility] Address: [address] [place] [address] Result Comment: This test was developed and its performance characteristics determined by [facility] [place] (-[facility]). It has not been cleared or approved by the FDA. RT-[facility] is regulated under CLIA as qualified to perform high-complexity testing. This test is used for clinical purposes. It should not be regarded as investigational or for research. Performed By: #### H COAG ####[facility] LABIA [id number] [place] [address] [place] Protein C actual/normal Coag (PPP) [Relative time] 137 % Normal 76-147 [facility] Comment on above: Order Comment: Speci men Type: BLOOD SPECIMENOrdering Facility: [facility] Address: [address] [place] [address] Performed By: #### H COAG ####[facility] LABIA [id number] [address] [place] Protein S actual/normal Chromogenic method (PPP) [Rel catalytic activity/Vol] 127 % Normal 74-156 [facility] Comment on above: Order Comment: Speci men Type: BLOOD SPECIMENOrdering Facility: [facility] Address: [address] [place] [address] Performed By: #### H COAG ####[facility] [id number] [place] [address] [place] Protein S Free Ag actual/normal IA (PPP) [Relative mass conc] 108 % Normal 55-148 [facility] Comment on above: Order Comment: Speci men Type: BLOOD SPECIMENOrdering Facility: [facility] Address: [address] [place] [address] Performed By: #### H COAG ####[facility] LABIA [id number] [place] [address] [place] Thrombin time Coag (PPP) [Time] <16.8 Normal <18.6 [facility] Comment on above: Order Comment: Speci men Type: BLOOD SPECIMENOrdering Facility: [facility] Address: [address] [place] [address] Performed By: #### H COAG ####[facility] LABIA [id number] [place] [address] [place] THROMBIN TIME HZ + DOAC 17.3 Normal <18.6 [facility] Comment on above: Order Comment: Speci men Type: BLOOD SPECIMENOrdering Facility: [facility] Address: [address] [place] [address] Performed By: #### H COAG ####[facility] LABIA [id number] [facility] [id number] [address] [place] PROTHROMBIN GENE PCRon 01-18 PROTHROMBIN GENE MUTATION Normal [facility] Comment on above: Order Comment: Speci men Type: BLOOD SPECIMEN Ordering Facility: [facility] Address: [address] [place] [address] Result Comment: Prot hrombin Gene Mutation Laboratory Accession Number: [id number] Result: HETEROZYGOUS Interpretation: The DNA sample is positive for one copy of the c.97G>A variant (legacy name 73575G>A) in the 3' untranslated region of the [...] blood specimen is evaluated for the c*97G>A (g.[id number]) variant of the F2 gene [RefSeq [id number];GRCh38/hg38] by multiplex polymerase chain reaction (PCR) followed by melting curve analysis. Limitations: This assay is designed to detect the c.*97G>A (98095Q>A) variant in the F2 gene. Uncommon variants or single nucleotide polymorphisms may affect binding of probes and may rarely result in false negative, false positive or indeterminate results. This assay does not detect other disease-associated rare variants in F2 or other causes of thromboembolic disease. Disclaimer: This test was developed and its performance characteristics determined by [facility]'s [facility] [place] (RT-PLMI). It has not been cleared or approved by the FDA. -PLDC is regulated under CLIA as certified to perform high- complexity testing. This test is used for clinical purposes. It should not be regarded as investigational or for research. Testing and interpretation performed at [facility], [address] [place] [address]. CLIA Number: [id number] References: 1) Inheritied Thrombophilias in . ACOG Practice Bulletin. No. 197. [employer]. Obsete Gynecol 2018;132:e18-34. 2) Josselyn SR, Elizabeth FR, Cierra PH, and Ashley SARAH. A common genetic variation in the 3'-untranslated region of the prothrombin gene is associated with elevated plasma prothrombin levels and an increase in venous thrombosis. Blood 88:3698-703, 1995. 3) Jeramy I, Mayra V, Reed C, Nigel Padron. Prothrombin 41348J>T: 16 new cases, association with the 35493Q>G polymorphism, and literature review. J Thromb Haemost. 2009;9:1585-7. As reviewed by Stacy Jacobo MD Performed By: #### P TGEN #### [facility] I[facility] [place] [id number] [address] [place] [address] [facility] CNPJyoti 12-27-2023 CNPN Telephone (SPMEST) SPEEDY BLACKWOOD ([id number]) 1980 F [place] Date Time Provider Department [...] capsule by mouth daily at bedtime. - L.ACID/L.CASEI/B.BIF/B.KAVYA/ FOS (PROBIOTIC BLEND ORAL) Take 1 capsule by mouth once daily. Problem List As Of Date 12/27/2023 Noted Resolved Cholelithiasis NOS [K80.20] 10/02/2007 06/28/2011 Abdominal pain, right upper quadrant [R10.11] 06/28/2011 Elev transaminase/LDH [R74.01, R74.02] 06/28/2011 Personal history of tobacco use, presenting haz*06/28/2011 [facility] HIGH RISK NEC [V23.89] [O09.899]07/26/2011 11/22/2013 Leg pain [M79.606] 08/31/2011 Tobacco abuse [Z72.0] 12/26/2013 Depression [F32.A] 12/26/2013 Discogenic pain [M54.9] 06/19/2014 DDD (degenerative disc disease), lumbar [M51.36]06/19/2014 Chronic back pain [M54.9, G89.29] 06/19/2014 Encounter Status:Closed by EVARISTO MIRAMONTES on 12/27/23 [facility] MR Brain WO contraston 12-21 * * [...] are otherwise patent. DIVISION OF RADIOLOGY [facility]23 * * *Final Report* * * DATE OF EXAM: Dec 22 2023 1:45PM [facility] 0294 - MRI BRAIN WO IVCON [...] neural foraminal narrowing in the thoracic spine. Cafeteria Cashier: TROY Transcribe Date/Time: Dec 22 2023 2:19P Dictated by : NORMA GOMEZ MD This examination was interpreted and the report reviewed and electronically signed by: NORMA GOMEZ MD on Dec 22 2023 2:27PM [facility] MR Cervical spine WO contras ton 12-22-2023 * * *Final Report* * * DATE OF EXAM: Dec 22 2023 1:45PM [facility] 0297 - MRI CERVICAL SPINE WO [...] are otherwise patent. DIVISION OF RADIOLOGY Provider, Jess Lees [facility] - 12/22/2023 * * *Final Report* * * DATE OF EXAM: Dec 22 2023 1:45PM [facility] 0297 - MRI CERVICAL SPINE WO [...] neural foraminal narrowing in the thoracic spine. Cafeteria Cashier: TROY Transcribe Date/Time: Dec 22 2023 2:19P Dictated by : NORMA GOMEZ MD This examination was interpreted and the report reviewed and electronically signed by: NORMA GOMEZ MD on Dec 22 2023 2:27PM [facility] MR Thoracic spine WO contras ton 12-22-2023 * * *Final Report* * * DATE OF EXAM: Dec 22 2023 1:45PM [facility] 0325 - MRI THORACIC SPINE WO [...] are otherwise patent. DIVISION OF RADIOLOGY Provider, [facility] - 12/22/2023 * * *Final Report* * * DATE OF EXAM: Dec 22 2023 1:45PM [facility] 0325 - MRI THORACIC SPINE WO [...] neural foraminal narrowing in the thoracic spine. Cafeteria Cashier: TROY Transcribe Date/Time: Dec 22 2023 2:19P Dictated by : NORMA GOMEZ MD This examination was interpreted and the report reviewed and electronically signed by: NORMA GOMEZ MD on Dec 22 2023 2:27PM [facility] MRI BRAIN WO IVCONon 024 MRI BRAIN [...] neural foraminal narrowing in the thoracic spine. Cafeteria Cashier: PSCWerner Transcribe Date/Time: Dec 22 2023 2:19P Dictated by : NORMA GOMEZ MD This examination was interpreted and the report reviewed and electronically signed by: NORMA GOMEZ MD on Dec 22 2023 2:27PM EST [id number] Normal [facility] MRI CERVICAL SPINE WO IVCONo n 12-22-2023 MRI CERVICAL SPINE WO IVCON * * *Final Report* * * DATE OF EXAM: Dec 22 2023 1:45PM [facility] 0297 - MRI CERVICAL SPINE WO [...] neural foraminal narrowing in the thoracic spine. Cafeteria Cashier: [facility] SERVICES[facility] Transcribe Date/Time: Dec 22 2023 2:19P Dictated by : NORMA GOMEZ MD This examination was interpreted and the report reviewed and electronically signed by: NORMA GOMEZ MD on Dec 22 2023 2:27PM EST [id number] Normal [facility] MRI THORACIC SPINE WO IVCONo n 12-22-2023 MRI THORACIC SPINE WO IVCON * * *Final Report* * * DATE OF EXAM: Dec 22 2023 1:45PM [facility] 0325 - MRI THORACIC SPINE WO IVCON [...] neural foraminal narrowing in the thoracic spine. Cafeteria Cashier: PSCB Transcribe Date/Time: Dec 22 2023 2:19P Dictated by : NORMA GOMEZ MD This examination was interpreted and the report reviewed and electronically signed by: NORMA GOMEZ MD on Dec 22 2023 2:27PM EST [id number] Normal [facility] Panel Informationon 12-21 IMPRESSION: No acute findings. No acute infarction, intracranial hemorrhage or intracranial mass lesion. Degenerative changes of the cervical spine, most pronounced at C4-C5 with moderate right neural foraminal narrowing. No significant spinal canal stenosis or neural foraminal narrowing in the thoracic spine. Cafeteria Cashier: TROY Transcribe Date/Time: Dec 22 2023 2:19P Dictated by : NORMA GOMEZ MD This examination was interpreted and the report reviewed and electronically signed by: NORMA GOMEZ MD on Dec 22 2023 2:27PM [facility] DIVISION OF RADIOLOGY Radiology Study observation (narrative) [facility] No Panel InformationOrdered By: Ccf Provider on 12-22-2023 [facility] CNOVon 11-18-2023 CNOV Office Visit (SPMEST ) SPEEDY BLACKWOOD ([id number]) 1980 F [place] Date Time Provider Department [...] as above for many years. Worked in [employer] in 2006. Has been dealing with bladder [...] Paternal Grandmother (more content not included)... Normal [facility] MR Lumbar spine WO and W con trast Godfrey 08-31-2023 [facility] Basophil percentageOrdered B y: Tati Albarran on 07-13-2023 Hemoglobin (Bld) [Mass/Vol] 12.5 g/dL 12.0-15.0 [facility] WBC (Bld) [#/Vol] 7.7 10*3/uL 4.4-11.0 [facility] Determination of erythrocyte mean corpuscular volume (MCV)Ordered By: Tati Albarran on 07-13-2023 MCV (RBC) [Entitic vol] 93.7 fL 81-99 [facility] Erythrocyte distribution wid th ratioOrdered By: Tati Albarran on 07-13-2023 Erythrocyte distribution width (RBC) [Ratio] 12.1 % 11.6-14.6 [facility] Erythrocyte distribution wid th standard deviationOrdered By: Tati Albarran on 07-13-2023 Erythrocyte distribution width (RBC) [Entitic vol] 41.4 fL 35.1-43.9 [facility] Hematocrit Auto (Bld) [Volum e fraction]Ordered By: Tati Albarran on 07-13-2023 Hematocrit (Bld) [Volume fraction] 35.7 % 37-47 [facility] Laboratory - Hematology and Cell countsOrdered By: Tati Avis on 07-13-2023 MCH (RBC) [Entitic mass] 32.8 pg 27.0-32.0 [facility] MCHC (RBC) [Mass/Vol] 35.0 g/dL 32-36 [facility] Platelet mean volume (Bld) [Entitic vol] 9.5 fL 6.2-12.0 [facility] Platelets (Bld) [#/Vol] 332 10*3/uL 150-450 [facility] RBC Auto (Bld) [#/Vol]Ordere d By: Tati Avis on 07-13-2023 RBC (Bld) [#/Vol] 3.81 10*6/uL 4.2-5.4 [facility] XR LUMBAR MOTION 4V AP/LAT/ FLEX/EXTon 06-20-2023 [facility] XR Lumbar spine Views W flex ion and W extensionon 06-20-2023 IMPRESSION: Unremark able lumbar spine X-ray. Cafeteria Cashier: PSCB Transcribe Date/Time: Jun 20 2023 10:33A Dictated by : JAMES PALAFOX MD This examination was interpreted and the report reviewed and electronically signed by: JAMES PALAFOX MD on Jun 20 2023 10:35AM [facility] DIVISION OF RADIOLOGY * * *Final Report* [...] spine are presented. FINDINGS: There are five tsj-blj-rbjifem lumbar vertebrae. No fracture or subluxations are noted. No change in alignment of the lumbar spine with lateral extension and lateral flexion. The disc spaces are well preserved. There is minimal osteophyte formation. DIVISION OF RADIOLOGY Provider, Jess Lees [facility] - 06/20/2023 * * *Final Report* [...] spine are presented. FINDINGS: There are five sjb-iss-isizrqz lumbar vertebrae. No fracture or subluxations are noted. No change in alignment of the lumbar spine with lateral extension and lateral flexion. The disc spaces are well preserved. There is minimal osteophyte formation. IMPRESSION IMPRESSION: Unremarkable lumbar spine X-ray. Cafeteria Cashier: [facility] Transcribe Date/Time: Jun 20 2023 10:33A Dictated by : JAMES PALAFOX MD This examination was interpreted and the report reviewed and electronically signed by: JAMES PALAFOX MD on Jun 20 2023 10:35AM EST [facility] Radiology Study observation (narrative) [facility] XR Lumbar spine Views W flex ion and W extensionOrdered By: Ccf Provider on 06-20-2023 [facility] Cervical or vaginal specimen microscopic examination by liquid based cytology (reportOrdered By: Tati Albarran on 06-14-2023 Cytology report Cyto stain.thin prep Doc (Cvx/Vag) See comment [facility] Comment on above: HPV Genotype ReflexC riteria not met, HPV Genotype not performed. Detection in cervical specim en of any of human papilloma virus (HPV) 16, 18, 31, 33,Ordered By: Tati Albarran on 06-14-2023 HPV 16+18+31+33+35+39+45+5 1+52+56+58+59+66+68 DNA Probe+sig amp Ql (Cvx) Negative [facility] Comment on above: This nucleic acid am plification test detects fourteen high- risk HPV types (16,18,31,33,35,39,45,51,52,56,58,59,66,68) without differentiation. Laboratory - CytologyOrdered By: Ttai Albarran on 06-14-2023 [employer] Developer Cyto stain Nom (Cvx/Vag) [ID] See comment [facility] Comment on above: Performed by Mal [employer] (ASCP) Laboratory - Miscellaneous t estsOrdered By: Tati Albarran on 06-14-2023 Service comment (Unsp spec) [Interp] See comment [facility] Comment on above: The pap smear is [...] Papanicolaou smear with manual screening See comment [facility] Comment on above: NEGATIVE FOR INTRAEP ITHELIAL LESION AND MALIGNANCY This liquid based Th inPrep(R) pap test was screened with the use of an image guided system. XR Knee - left 4 Viewson IMPRESSION: No acute pathology. Cafeteria Cashier: TROY Transcribe Date/Time: Jan 27 2023 10:09A Dictated by : KATIE LEIAV MD This examination was interpreted and the report reviewed and electronically signed by: KATIE LEIVA MD on Jan 27 2023 10:12AM [facility] DIVISION OF RADIOLOGY * * *Final Report* [...] fracture or dislocation. DIVISION OF RADIOLOGY Provider, Jess Harris - 01/27/2023 * * *Final Report* * [...] or dislocation. IMPRESSION IMPRESSION: No acute pathology. Cafeteria Cashier: TROY Transcribe Date/Time: Jan 27 2023 10:09A Dictated by : KATIE LEIVA MD This examination was interpreted and the report reviewed and electronically signed by: KATIE LEIVA MD on Jan 27 2023 10:12AM EST [facility] No Panel Informationon 01-24 Radiology Study observation (narrative) [facility] XR Chest PA and Lateralon IMPRESSION: No acute radiographic abnormality. Cafeteria Cashier: TROY Transcribe Date/Time: Jan 24 2023 2:45P Dictated by : JAMES PALAFOX MD This examination was interpreted and the report reviewed and electronically signed by: JAMES PALAFOX MD on Jan 24 2023 2:46PM [facility] DIVISION OF RADIOLOGY * * *Final Report* [...] soft tissues: Unremarkable. DIVISION OF RADIOLOGY Provider, Jess Lees [facility] - 01/24/2023 * * *Final Report* * [...] Unremarkable. IMPRESSION IMPRESSION: No acute radiographic abnormality. Cafeteria Cashier: PSCB Transcribe Date/Time: Jan 24 2023 2:45P Dictated by : JAMES PALAFOX MD This examination was interpreted and the report reviewed and electronically signed by: JAMES PALAFOX MD on Jan 24 2023 2:46PM EST [facility] XR Chest PA and LateralOrder ed By: Ccf Provider on 01-24-2023 [facility] Culture, urineOrdered By: Winnie Strickland on 10-27-2022 Bacteria identified Cx Nom (U) Positive [facility] Amorphous sediment detection in urine sediment by light microscopyOrdered By: Jeovany Strickland on 10-25-2022 Amorphous sediment LM Ql (Urine sed) 1+ [facility] Basophil percentageOrdered B y: Jeovany Strickland on 10-25-2022 Basophil percentage 0-5 SEEN /hpf 0-5 [facility] Bilirubin Test strip Ql (U)O rdered By: Jeovany Strickland on 10-25-2022 Bilirubin Ql (U) Negative Negative [facility] Ketones Test strip Ql (U)Ord ered By: Jeovany Strickland on 10-25-2022 Ketones Ql (U) Negative Negative [facility] LABORATORYOrdered By: Chayo Wilkerson on 10-25-2022 C. [...] Invalid Interpretation Code See CT Interp N Auto Viro/Sero SS N. gonorrhoeae DNA CHITO+probe [...] Cervix (10/25/22 12:49 PM) Invalid Interpretation Code Auto Viro/Sero SS Mucus LM Ql (Urine sed)Order ed By: Jeovany Strickland on 10-25-2022 Mucus Ql (Urine sed) 0 SEEN /hpf [facility] Nitrite Test strip Ql (U)Ord ered By: Jeovany Strickland on 10-25-2022 Nitrite Ql (U) Negative Negative [facility] Protein Test strip Ql (U)Ord ered By: Jeovany Strickland on 10-25-2022 Protein Ql (U) Negative Negative [facility] Squamous epithelial cells de tection in urine sediment by light microscopyOrdered By: Jeovany Strickland on 10-25-2022 Epithelial cells.squamous LM Ql (Urine sed) 0-5 SEEN /hpf 5-10 [facility] Urine blood detectionOrdered By: Jeovany Strickland on 10-25-2022 RBC Ql (U) 25 /ul Negative [facility] RBC Ql (U) 0-5 SEEN /hpf 0-5 [facility] Urine clarityOrdered By: Daljit Strickland on 10-25-2022 Clarity (U) Sl. Cloudy Clear [facility] Urine color determinationOrd ered By: Jeovany Strickland on 10-25-2022 Color (U) Yellow Yellow [facility] Urine glucose detectionOrder ed By: Jeovany Strickland on 10-25-2022 Glucose Ql (U) Normal mg/dl Normal [facility] Urine leukocyte esterase det ection by dipstickOrdered By: Jeovany Strickland on 10-25-2022 Leukocyte esterase Test strip Ql (U) Negative Negative [facility] Urine pHOrdered By: Jeovany carpio on 10-25-2022 pH (U) 7.0 [pH] 5.0 - 8.0 [facility] Urine sediment bacteria coun t by microscopy (number/high power field)Ordered By: Jeovany Strickland on 10-25-2022 Bacteria LM.HPF (Urine sed) [#/Area] 0 /[HPF] None Seen [facility] Urine specific gravity measu rementOrdered By: Jeovany Strickland on 10-25-2022 Specific gravity (U) [Rel density] 1.020 1.002-1.03 0 [facility] Urobilinogen Auto test strip Ql (U)Ordered By: Jeovany Strickland on 10-25-2022 Urobilinogen Ql (U) Normal mg/dl Normal [facility] CTPCRon 10-15-2022 C. trachomatis Interp Abnormal See CT Interp N [facility] ([place]) Comment on above: Result Comment: DNA detection by non-culture technique (PCR). Sensitivity testing not available with this method. This organism causes a reportable disease Results have been reported to the [place] [facility] See CT Interp P Performed By: #### C TPCR, NGPCR1 #### [address] [address] C.trachomatis PCR Positive Abnormal Negative [facility] ([place]) Comment on above: Result Comment: Mole cular (PCR) assay performed on the Shira Fidenc[employer] 4800 system. Performed By: #### C TPCR, NGPCR1 #### [address] [address] Chlam Source Cervix Normal [facility] ([place]) Comment on above: Performed By: #### C TPCR, NGPCR1 #### [address] [address] [id number] 10-15-2022 GC PCR Source Cervix Normal [facility] ([place] Comment on above: Performed By: #### C TPCR, NGPCR1 #### [address] [address] N. gonorrhoeae (PCR) Negative Normal Negative [facility] ([place]) Comment on above: Result Comment: Mole cular (PCR) assay performed on the Shira Fidencio 4800 System. Performed By: #### C TPCR, NGPCR1 #### [place] [id number] N. gonorrhoeae Interp Normal See NG Interp N [facility] ([place] Comment on above: Result Comment: N. g onorrhoeae DNA not detected. Specimen is presumptive negative for N. gonorrhoeae. A negative result does not preclude Neisseria gonorrhoeae infection because results depend on adequate specimen collection, absence of inhibitors, and sufficient DNA to be detected. See NG Interp N Performed By: #### C TPCR, NGPCR1 #### [place] [address] RPRon 10-15-2022 Reagin Ab RPR Ql (S) Non-Reactive Normal Non-Allison cti ve [facility] ([place] Comment on above: Result Comment: The RPR [...] By: #### H CV1, HBSAG, RPR #### [place] [id number] HBSAGon 10-14-2022 Hep B Surf Ag Non-Reactive Normal Non-Reacti [facility] ([place]) Comment on above: Performed By: #### H CV1, HBSAG, RPR #### [place] [address] HCVon 10-14-2022 Hep C Ab Non-Reactive Normal Non-Reacti [facility] ([place] Comment on above: Performed By: #### H CV1, HBSAG, RPR #### [place] [address] Hep C Ab Int Normal [facility] ([place] Comment on above: Result Comment: Nonr eactive: Samples with a value < 0.80 are considered nonreactive (negative) for antibodies to HCV. A negative test result does not exclude the possibility of exposure to or infection with HCV. HCV antibodies may be undetectable in some stages of the infection and in some clinical conditions. See Interp Performed By: #### H CV1, HBSAG, RPR #### [place] [address] HIVRPon 10-14-2022 HIV p24 Antigen Non-Reactive Normal Non-Reacti [facility] ([place] Comment on above: Result Comment: Dete ction of p24 may be inhibited by biotin in the sample, causing false negative results in acute infection. Therefore do not test samples from patients who are taking biotin. Performed By: #### H IVRP #### [place] [address] HIV P24 Int Non-Reactive Invalid Interpretation Code [facility] ([place] Comment on above: Performed By: #### H IVRP #### [place] [address] Rapid HIV 1/2 Antibody Non-Reactive Normal Non-R eacti [facility] ([place] Comment on above: Performed By: #### H IVRP #### [place] [address] RHIV 1/2 Ab Int Non-Reactive Invalid Interpretation Code [facility] ([place] Comment on above: Performed By: #### H IVRP #### [address] [address] LABORATORYOrdered By: Mike Ovalles on 10-14-2022 HIV 1 p24 Ab Ql (S) Non-Reactive (10/14/22 9:42 AM) Invalid Interpretation Code Non-Reacti ve AO Rapid Testing SS HIV 1 p24 Ab Ql (S) Non-Reactive Invalid Interpretation Code AO Rapid Testing SS HIV 1+2 Ab IA Ql Non-Reactive Invalid Interpretation Code AO Rapid Testing SS HIV 1+2 Ab IA.rapid Ql (Unsp spec) Non-Reactive (10/14/22 9:42 AM) Invalid Interpretation Code Non-Reacti ve AO Rapid Testing SS LABORATORYOrdered By: Twingly [facility] on 10-14-2022 HBV surface Ag IA Ql Non-Reactive (10/14/22 9:41 AM) Invalid Interpretation Code Non-Reacti ve AH ADM SS LABORATORYOrdered By: Christy Wu on 10-14-2022 HCV Ab IA Ql Non-Reactive (10/14/22 9:41 AM) Invalid Interpretation Code Non-Reacti ve AH ADM SS HCV Ab IA Ql [...] reportable diseaseResults have been reported to the [place] [facility] Invalid Interpretation Code See [...] Cervix (10/14/22 9:25 AM) Invalid Interpretation Code AH Auto Viro/Sero SS Basophil percentageOrdered B y: Dr. Tello on 09-29-2022 Basophil percentage 25-50 SEEN /hpf 0-5 [facility] Bilirubin Test strip Ql (U)O rdered By: Dr. Tello on 09-29-2022 Bilirubin Ql (U) Negative Negative [facility] Ketones Test strip Ql (U)Ord ered By: Dr. Tello on 09-29-2022 Ketones Ql (U) 5 mg/dl Negative [facility] Laboratory - Chemistry and C hemistry - challengeOrdered By: Dr. Tello on 09-29-2022 HCG ( test) Ql (U) Negative [facility] Comment on above: Very dilute urine sp ecimens, as indicated by a low specificgravity, may not contain traveling representative levels of hCG. If is still suspected, a first morning urinespecimen should be collected 48 hours later and tested. Mucus LM Ql (Urine sed)Order ed By: Dr. Tello on 09-29-2022 Mucus Ql (Urine sed) 1+ /hpf [facility] Nitrite Test strip Ql (U)Ord ered By: Dr. Tello on 09-29-2022 Nitrite Ql (U) Negative Negative [facility] Protein Test strip Ql (U)Ord ered By: Dr. Tello on 09-29-2022 Protein Ql (U) 30 mg/dl Negative [facility] Squamous epithelial cells de tection in urine sediment by light microscopyOrdered By: Dr. Tello on 09-29-2022 Epithelial cells.squamous LM Ql (Urine sed) 5-10 SEEN /hpf 5-10 [facility] Urine blood detectionOrdered By: Dr. Tello on 09-29-2022 RBC Ql (U) 250 /ul Negative [facility] RBC Ql (U) 25-50 SEEN /hpf 0-5 [facility] Urine clarityOrdered By: Dr. Tello on 09-29-2022 Clarity (U) Sl. Cloudy Clear [facility] Urine color determinationOrd ered By: Dr. Tello on 09-29-2022 Color (U) Yellow Yellow [facility] Urine glucose detectionOrder ed By: Dr. Tello on 09-29-2022 Glucose Ql (U) Normal mg/dl Normal [facility] Urine leukocyte esterase det ection by dipstickOrdered By: Dr. Tello on 09-29-2022 Leukocyte esterase Test strip Ql (U) 500 /ul Negative [facility] Urine pHOrdered By: Dr. Alicia baker on 09-29-2022 pH (U) 5.0 [pH] 5.0 - 8.0 [facility] Urine sediment bacteria coun t by microscopy (number/high power field)Ordered By: Dr. Tello on 09-29-2022 Bacteria LM.HPF (Urine sed) [#/Area] 1 /[HPF] None Seen [facility] Urine specific gravity measu rementOrdered By: Dr. Tello on 09-29-2022 Specific gravity (U) [Rel density] 1.025 1.002-1.03 0 [facility] Urobilinogen Auto test strip Ql (U)Ordered By: Dr. Tello on 09-29-2022 Urobilinogen Ql (U) Normal mg/dl Normal [facility] CBC W Auto Differential pane l (Bld)on 09-13-2022 Basophils (Bld) [#/Vol] 0.07 10*3/uL <0.11 k/uL [facility] Basophils/100 WBC (Bld) 0.6 % [facility] Differential cell count method Nom (Bld) Auto [facility] Eosinophils (Bld) [#/Vol] 0.49 10*3/uL High <0.46 k/uL [facility] Eosinophils/100 WBC (Bld) 4.1 % [facility] Erythrocyte distribution width (RBC) [Ratio] 11.9 % 11.5 - 15.0 % [facility] Hematocrit (Bld) [Volume fraction] 39.0 % 36.0 - 46.0 % [facility] Hemoglobin (Bld) [Mass/Vol] 13.1 g/dL 11.5 - 15.5 g/dL [facility] Immature granulocytes (Bld) [#/Vol] 0.08 10*3/uL <0.10 k/uL [facility] Immature granulocytes/100 WBC (Bld) 0.7 % [facility] Lymphocytes (Bld) [#/Vol] 4.24 10*3/uL High 1.00 - 4.00 k/uL [facility] Lymphocytes/100 WBC (Bld) 35.2 % [facility] MCH (RBC) [Entitic mass] 32.1 pg 26.0 - 34.0 pg [facility] MCHC (RBC) [Mass/Vol] 33.6 g/dL 30.5 - 36.0 g/dL [facility] MCV (RBC) [Entitic vol] 95.6 fL 80.0 - 100.0 fL [facility] Monocytes (Bld) [#/Vol] 0.85 10*3/uL <0.87 k/uL [facility] Monocytes/100 WBC (Bld) 7.1 % [facility] Neutrophils (Bld) [#/Vol] 6.31 10*3/uL 1.45 - 7.50 k/uL [facility] Neutrophils/100 WBC (Bld) 52.3 % [facility] Nucleated RBC (Bld) [#/Vol] <0.01 k/uL [facility] Nucleated RBC/100 WBC (Bld) [Ratio] 0.0 /100 WBC [facility] Platelet mean volume (Bld) [Entitic vol] 10.5 fL 9.0 - 12.7 fL [facility] Platelets (Bld) [#/Vol] 317 10*3/uL 150 - 400 k/uL [facility] RBC (Bld) [#/Vol] 4.08 10*6/uL 3.90 - 5.20 m/uL [facility] WBC (Bld) [#/Vol] 12.04 10*3/uL High 3.70 - 11.00 k/uL [facility] Distribution Technician Cytology Reporton 2021 Distribution Technician Cytology Report . Pathology Reports Accession: Collected Date/Time: Received Date/Time: Pathologist: [id number] 03/29/2022 11:56 EST 03/29/2022 18:00 EST ALANA GR MD Distribution Technician Cytology Report SPECIMEN: Specimen Description: Liquid Prep w/ HPV Specimen: Cervical/Endocervical Screening or Diagnostic: Screening RELEVANT HISTORY: LMP: 03/2022 [id number] SPECIMEN ADEQUACY: SATISFACTORY FOR EVALUATION Endocervical/Transformation al zone component present INTERPRETATION/RESULTS: NEGATIVE FOR INTRAEPITHELIAL [...] Reports Accession: Collected Date/Time: Received Date/Time: Pathologist: [id number] 03/29/2022 11:56 EST 03/29/2022 18:00 EST ALANA GR MD COMMENT: This Pap Test was successfully processed and evaluated with the assistance of the [employer] ThinPrep Test Imaging System. Electronically Signed by Pathology report verified by [facility] Screened by: MARIA LUISA RANDALL Electronically signed by ALANA GR Sign-Out Date: 04/05/2022 14:57 Performing Lab: [facility], [address] [place] [address] Pathology Dept Disclaimer The Pap test is a screening test for cervical cancer. As evidenced by published data, it is subject to both inherent false negative and false positive results. Your patient's results should be interpreted in context with pertinent clinical history including gynecological examination. Normal [facility] ([place]) HPVon 04-02-2022 HPV Interp Abnormal See Interp HPVN [facility]) Comment on above: Order Comment: Order placed by AP_HPV_ORDER rule from [id number] Result Comment: High Risk HPV Typing is [...] and sufficient DNA to be detected. See [facility] HPVO Performed By: #### H PV #### [place] [address] HPV Source Cervix Normal [facility] ([place]) Comment on above: Order Comment: Order placed by AP_HPV_ORDER rule from [id number] Performed By: #### H PV #### [place] [address] Vital Signs Date Time Vital Sign Value Performing Clinician Facility 01-08-2025 10:23-040 Body height 160.02 cm Nguyen FAMC Work Phone: [facility] 01-08-2025 10:16-040 Body mass index (BMI) [Ratio] 32.1 kg/m2 Nguyen [facility]C Work Phone: [facility] 01-08-2025 10:16 Body weight 82.29 kg Nguyen Knoble TRAINING ADMINISTRATOR-C Work Phone: 4(735)[phone] [place] [address] 01-08-2025 10:16-0400 Diastolic blood pressure 60 mm[Hg] Nguyen Kurtz TRAINING ADMINISTRATOR-C Work Phone: 1(691)430-169524 [place] [address] 01-08-2025 10:16-0400 Systolic blood pressure 112 mm[Hg] Nguyen Kurtz TRAINING ADMINISTRATOR-C Work Phone: 6(144)153-628724 [place] [address] 12-05-2024 23:00-0400 Diastolic blood pressure 69 mm[Hg] Nguyen Kurtz TRAINING ADMINISTRATOR-C Work Phone: 0(885)093-305424 [place] [address] 12-05-2024 23:00-0400 Heart rate 86 /min Nguyen Kurtz TRAINING ADMINISTRATOR-C Work Phone: 2(136)920-253324 [place] [address] 12-05-2024 23:00-0400 Respiratory rate 12 /min Nguyen Kurtz TRAINING ADMINISTRATOR-C Work Phone: 2(203)871-370424 [place] [address] 12-05-2024 23:00-0400 SaO2% (BldA) [Mass fraction] 96 % Nguyen Kurtz TRAINING ADMINISTRATOR-C Work Phone: 1(821)964-144124 [place] [address] 12-05-2024 23:00-0400 Systolic blood pressure 110 mm[Hg] Nguyen Kurtz TRAINING ADMINISTRATOR-C Work Phone: 6(996)602-033024 [place] [address] 12-05-2024 20:37-0400 Body height 160.02 cm Nguyen Kurtz TRAINING ADMINISTRATOR-C Work Phone: 4(048)460-079224 [place] [address] 12-05-2024 20:37-0400 Body mass index (BMI) [Ratio] 32.8 kg/m2 Nguyen Kurtz TRAINING ADMINISTRATOR-C Work Phone: 4(413)054-410324 [place] [address] 12-05-2024 20:37-0400 Body temperature 96.9 [degF] Nguyen Kurtz TRAINING ADMINISTRATOR-C Work Phone: 4(247)324-509724 [place] [address] 12-05-2024 20:37-0400 Body weight 84 kg Nguyen Kurtz TRAINING ADMINISTRATOR-C Work Phone: 4(582)091-775924 [place] [address] 10-02-2024 15:24-0400 Body height 162.56 cm Nguyen Kurtz TRAINING ADMINISTRATOR-C Work Phone: [facility] 10-02-2024 15:24-0400 Body mass index (BMI) [Ratio] 30.7 kg/m2 Nguyen Kurtz TRAINING ADMINISTRATOR-C Work Phone: [facility] 10-02-2024 15:24-0400 Body weight 81.36 kg Nguyen Kurtz TRAINING ADMINISTRATOR-C Work Phone: [facility] 10-02-2024 15:24-0400 Diastolic blood pressure 77 mm[Hg] Nguyen Kurtz TRAINING ADMINISTRATOR-C Work Phone: [facility] 10-02-2024 15:24-0400 Systolic blood pressure 109 mm[Hg] Nguyen Kurtz TRAINING ADMINISTRATOR-C Work Phone: [facility] 09-18-2024 08:54-0400 Body mass index (BMI) [Ratio] 30.55 kg/m2 Nguyen Kurtz PRODUCTION FLOATER.POLITICAL DIRECTOR Work Phone: [facility] 09-18-2024 08:54-0400 Body weight 80.74 kg Nguyen Kurtz APRN.POLITICAL DIRECTOR Work Phone: [facility] 09-18-2024 08:54-0400 Diastolic blood pressure 68 mm[Hg] Nguyen Kurtz APRN.POLITICAL DIRECTOR Work Phone: [facility] 09-18-2024 08:54-0400 Heart rate 90 /min Nguyen Kurtz APRN.POLITICAL DIRECTOR Work Phone: [facility] 09-18-2024 08:54-0400 Systolic blood pressure 104 mm[Hg] Nguyen Kurtz APRN.POLITICAL DIRECTOR Work Phone: [facility] 09-14-2024 08:53-0400 Body mass index (BMI) [Ratio] 30.65 kg/m2 Nguyen Kurtz APRN.POLITICAL DIRECTOR Work Phone: [facility] 09-14-2024 08:53-0400 Body weight 81 kg Nguyen Kurtz APRN.POLITICAL DIRECTOR Work Phone: [facility] 09-14-2024 08:53-0400 Diastolic blood pressure 74 mm[Hg] Nguyen Kurtz PRODUCTION FLOATER.POLITICAL DIRECTOR Work Phone: [facility] 09-14-2024 08:53-0400 Heart rate 88 /min Nguyen Kurtz PRODUCTION FLOATER.POLITICAL DIRECTOR Work Phone: [facility] 09-14-2024 08:53-0400 Systolic blood pressure 107 mm[Hg] Nguyen Kurtz PRODUCTION FLOATER.POLITICAL DIRECTOR Work Phone: [facility] 08-10-2024 12:57-0400 Body mass index (BMI) [Ratio] 30.65 kg/m2 Nguyen Kurtz PRODUCTION FLOATER.POLITICAL DIRECTOR Work Phone: [facility] 08-10-2024 12:57-0400 Body weight 81 kg Nguyen Kurtz PRODUCTION FLOATER.POLITICAL DIRECTOR Work Phone: [facility] 08-10-2024 12:57-0400 Diastolic blood pressure 76 mm[Hg] Nguyen Kurtz PRODUCTION FLOATER.POLITICAL DIRECTOR Work Phone: [facility] 08-10-2024 12:57-0400 Heart rate 86 /min Nguyen Kurtz PRODUCTION FLOATER.POLITICAL DIRECTOR Work Phone: [facility] 08-10-2024 12:57-0400 Systolic blood pressure 113 mm[Hg] Nguyen Kurtz PRODUCTION FLOATER.POLITICAL DIRECTOR Work Phone: [facility] 04-30-2024 07:37-0500 Body mass index (BMI) [Ratio] 30.08 kg/m2 Doug Vernon PRODUCTION FLOATER.POLITICAL DIRECTOR Work Phone: [facility] 04-30-2024 07:37-0500 Body temperature 98.01 [degF] Doug Vernon PRODUCTION FLOATER.POLITICAL DIRECTOR Work Phone: [facility] 04-30-2024 07:37-0500 Body weight 79.5 kg Doug Vernon PRODUCTION FLOATER.POLITICAL DIRECTOR Work Phone: [facility] 04-30-2024 07:37-0500 Diastolic blood pressure 72 mm[Hg] Doug Vernon PRODUCTION FLOATER.POLITICAL DIRECTOR Work Phone: [facility] 04-30-2024 07:37-0500 Heart rate 98 /min Doug Vernon PRODUCTION FLOATER.POLITICAL DIRECTOR Work Phone: [facility] 04-30-2024 07:37-0500 Respiratory rate 16 /min Doug Vernon PRODUCTION FLOATER.POLITICAL DIRECTOR Work Phone: [facility] 04-30-2024 07:37-0500 SaO2% (BldA) [Mass fraction] 98 % Doug Vernon PRODUCTION FLOATER.POLITICAL DIRECTOR Work Phone: [facility] 04-30-2024 07:37-0500 Systolic blood pressure 110 mm[Hg] Doug Vernon PRODUCTION FLOATER.POLITICAL DIRECTOR Work Phone: [facility] 03-20-2024 13:15-0500 Body height 162.6 cm Justin Whiteside MD Work Phone: [facility] 03-20-2024 13:15-0500 Body mass index (BMI) [Ratio] 28.49 kg/m2 Justin Whiteside MD Work Phone: [facility] 03-20-2024 13:15-0500 Body weight 75.3 kg Justin Whiteside MD Work Phone: [facility] 03-20-2024 13:15-0500 Diastolic blood pressure 71 mm[Hg] Pateloise Whiteside MD Work Phone: [facility] 03-20-2024 13:15-0500 Heart rate 91 /min Pateloise Whiteside MD Work Phone: [facility] 03-20-2024 13:15-0500 Systolic blood pressure 119 mm[Hg] Justin Whiteside MD Work Phone: [facility] 01-19-2024 08:47-0400 Body mass index (BMI) [Ratio] 28.49 kg/m2 Nguyen Kurtz PRODUCTION FLOATER.POLITICAL DIRECTOR Work Phone: [facility] 01-19-2024 08:47-0400 Body weight 75.3 kg Nguyen Kurtz PRODUCTION FLOATER.POLITICAL DIRECTOR Work Phone: [facility] 01-19-2024 08:47-0400 Diastolic blood pressure 67 mm[Hg] Nguyen Kurtz APRN.POLITICAL DIRECTOR Work Phone: [facility] 01-19-2024 08:47-0400 Heart rate 94 /min Nguyen Kurtz APRN.POLITICAL DIRECTOR Work Phone: [facility] 01-19-2024 08:47-0400 Respiratory rate 14 /min Nguyen Kurtz PRODUCTION FLOATER.POLITICAL DIRECTOR Work Phone: [facility] 01-19-2024 08:47-0400 SaO2% (BldA) [Mass fraction] 95 % Nguyen Kurtz APRN.POLITICAL DIRECTOR Work Phone: [facility] 01-19-2024 08:47-0400 Systolic blood pressure 104 mm[Hg] Nguyen Kurtz PRODUCTION FLOATER.POLITICAL DIRECTOR Work Phone: [facility] 11-18-2023 10:16-0400 Body height 162.6 cm George Hollis DO Work Phone: [facility] 11-18-2023 10:16-0400 Body mass index (BMI) [Ratio] 28.84 kg/m2 George Hollis DO Work Phone: [facility] 11-18-2023 10:16-0400 Body weight 76.2 kg George Hollis DO Work Phone: [facility] 11-18-2023 10:16-0400 Respiratory rate 12 /min George Hollis DO Work Phone: [facility] 07-29-2023 13:28-0400 Body weight 76.2 kg Nguyen Kurtz APRN.POLITICAL DIRECTOR Work Phone: [facility] 07-29-2023 13:28-0400 Diastolic blood pressure 68 mm[Hg] Nguyen Kurtz PRODUCTION FLOATER.POLITICAL DIRECTOR Work Phone: [facility] 07-29-2023 13:28-0400 Heart rate 82 /min Nguyen Kurtz APRN.POLITICAL DIRECTOR Work Phone: [facility] 07-29-2023 13:28-0400 Respiratory rate 16 /min Nguyen Kurtz PRODUCTION FLOATER.POLITICAL DIRECTOR Work Phone: [facility] 07-29-2023 13:28-0400 Systolic blood pressure 102 mm[Hg] Nguyen Kurtz PRODUCTION FLOATER.POLITICAL DIRECTOR Work Phone: [facility] 07-13-2023 16:09-0500 Body height 162.56 cm TRAINING ADMINISTRATOR-C Nguyen Kurtz Work Phone: [facility] 07-13-2023 16:08-0500 Body mass index (BMI) [Ratio] 28.5 kg/m2 TRAINING ADMINISTRATOR-C Nguyen Razooble Work Phone: [facility] 07-13-2023 16:08-0500 Body weight 75.52 kg TRAINING ADMINISTRATOR-C Nguyen Kurtz Work Phone: [phone])[phone] [place] [address] 07-13-2023 16:08-0500 Diastolic blood pressure 72 mm[Hg] TRAINING ADMINISTRATOR-C Nguyen Razooble Work Phone: [facility] 07-13-2023 16:08-0500 Systolic blood pressure 121 mm[Hg] TRAINING ADMINISTRATOR-C Nguyen Razooble Work Phone: [facility] 06-27-2023 15:11-0500 Body mass index (BMI) [Ratio] 28.9 kg/m2 TRAINING ADMINISTRATOR-C Nguyen Razooble Work Phone: [facility] 06-27-2023 15:11-0500 Body weight 76.37 kg TRAINING ADMINISTRATOR-C Nguyen Razooble Work Phone: [phone])[phone] [place] [address] 06-27-2023 15:11-0500 Diastolic blood pressure 70 mm[Hg] TRAINING ADMINISTRATOR-C Nguyen Razooble Work Phone: [facility] 06-27-2023 15:11-0500 Systolic blood pressure 108 mm[Hg] TRAINING ADMINISTRATOR-C Nguyen Razooble Work Phone: [facility] - [employer] 06-20-2023 08:55-0500 Body weight 76.66 kg Nguyen Kurtz PRODUCTION FLOATER.POLITICAL DIRECTOR Work Phone: [facility] 06-20-2023 08:55-0500 Diastolic blood pressure 70 mm[Hg] Nguyen Kurtz PRODUCTION FLOATER.POLITICAL DIRECTOR Work Phone: [facility] 06-20-2023 08:55-0500 Heart rate 89 /min Nguyen Kurtz PRODUCTION FLOATER.POLITICAL DIRECTOR Work Phone: [facility] 06-20-2023 08:55-0500 Respiratory rate 16 /min Nguyen Kurtz PRODUCTION FLOATER.POLITICAL DIRECTOR Work Phone: [facility] 06-20-2023 08:55-0500 Systolic blood pressure 104 mm[Hg] Nguyen Kurtz PRODUCTION FLOATER.POLITICAL DIRECTOR Work Phone: [facility] 06-14-2023 09:00-0500 Body height 162.[address] Tati Alvarez Work Phone: [facility] 06-14-2023 09:00-0500 Body mass index (BMI) [Ratio] 29 kg/m2 Dr. Tati Alvarez Work Phone: [facility] 06-14-2023 09:00-0500 Body weight 76.[address] Tati Alvarez Work Phone: [facility] 06-14-2023 09:00-0500 Diastolic blood pressure 69 mm[Hg] Dr. Tati Alvarez Work Phone: [facility] 06-14-2023 09:00-0500 Systolic blood pressure 100 mm[Hg] Dr. Tati Alvarez Work Phone: [facility] 10-25-2022 14:53-0400 Body height 162.[address] Bernie Harrell Work Phone: [facility] 10-25-2022 14:53-0400 Body mass index (BMI) [Ratio] 27.6 kg/m2 Dr. Bernie Harrell Work Phone: [facility] 10-25-2022 14:53-0400 Body temperature 98.2 [degF] Dr. Bernie Harrell Work Phone: [facility] 10-25-2022 14:53-0400 Body weight 73.[address] Bernie Harrell Work Phone: [facility] 10-25-2022 14:53-0400 Diastolic blood pressure 72 mm[Hg] Dr. Bernie Harrell Work Phone: [facility] 10-25-2022 14:53-0400 Heart rate 76 /min Dr. Bernie Harrell Work Phone: [facility] 10-25-2022 14:53-0400 Respiratory rate 17 /min Dr. Bernie Harrell Work Phone: [facility] 10-25-2022 14:53-0400 SaO2% (BldA) [Mass fraction] 98 % Dr. Bernie Harrell Work Phone: [facility] 10-25-2022 14:53-0400 Systolic blood pressure 124 mm[Hg] Dr. Bernie Harrell Work Phone: [facility] 09-29-2022 13:15-0400 Respiratory rate 18 /min Dr. Bernie Harrell Work Phone: [facility] 09-29-2022 09:23-0400 Body mass index (BMI) [Ratio] 27 kg/m2 Dr. Bernie Harrell Work Phone: [facility] 09-29-2022 09:23-0400 Body temperature 97.6 [degF] Dr. Bernie Harrell Work Phone: [facility] 09-29-2022 09:23-0400 Body weight 73.[address] Bernie Harrell Work Phone: [facility] 09-29-2022 09:23-0400 Diastolic blood pressure 73 mm[Hg] Dr. Bernie Harrell Work Phone: [facility] 09-29-2022 09:23-0400 Heart rate 95 /min Dr. Bernie Harrell Work Phone: [facility] 09-29-2022 09:23-0400 SaO2% (BldA) [Mass fraction] 100 % Dr. Bernie Harrell Work Phone: [facility] 09-29-2022 09:23-0400 Systolic blood pressure 141 mm[Hg] Dr. Bernie Harrell Work Phone: [facility] 09-16-2022 14:30-0400 Body mass index (BMI) [Ratio] 26.6 kg/m2 Dr. Bernie Harrell Work Phone: [facility] 09-16-2022 14:30-0400 Body weight 72.[address] Bernie Harrell Work Phone: [facility] 09-13-2022 15:48-0400 Body height 162.6 cm Nguyen Kurtz PRODUCTION FLOATER.POLITICAL DIRECTOR Work Phone: [facility] 09-13-2022 15:48-0400 Body weight 73.48 kg Nguyen Kurtz PRODUCTION FLOATER.POLITICAL DIRECTOR Work Phone: [facility] 09-13-2022 15:48-0400 Diastolic blood pressure 66 mm[Hg] Nguyen Kurtz PRODUCTION FLOATER.POLITICAL DIRECTOR Work Phone: [facility] 09-13-2022 15:48-0400 Heart rate 84 /min Nguyen Kurtz PRODUCTION FLOATER.POLITICAL DIRECTOR Work Phone: [facility] 09-13-2022 15:48-0400 Respiratory rate 14 /min Nguyen Kurtz PRODUCTION FLOATER.POLITICAL DIRECTOR Work Phone: [facility] 09-13-2022 15:48-0400 Systolic blood pressure 108 mm[Hg] Nguyen Kurtz PRODUCTION FLOATER.POLITICAL DIRECTOR Work Phone: [facility] 05-02-2022 14:58-0500 Body height 165.1 cm [facility] Work Phone: 05-02-2022 14:58-0500 Body mass index (BMI) [Ratio] 25.1 kg/m2 [facility] Work Phone: 05-02-2022 14:58-0500 Body temperature 97.6 [degF] [facility] Work Phone: 05-02-2022 14:58-0500 Body weight 68.49 kg [facility] Work Phone: 05-02-2022 14:58-0500 Diastolic blood pressure 67 mm[Hg] [facility] Work Phone: 05-02-2022 14:58-0500 Heart rate 80 /min [facility] Work Phone: 05-02-2022 14:58-0500 Respiratory rate 15 /min [facility] Work Phone: 05-02-2022 14:58-0500 SaO2% (BldA) [Mass fraction] 98 % [facility] Work Phone: 05-02-2022 14:58-0500 Systolic blood pressure 109 mm[Hg] [facility] Work Phone: Encounters Encounter Date Encounter Type Care Provider Facility Start: 01-08-2025 End: 01-08-2025 Patient encounter procedure Orly MARTINES -[facility] Work Phone: Start: 01-08-2025 End: 01-08-2025 ambulatory Nguyen FAMC Work Phone: -[facility] Start: 01-08-2025 End: 01-08-2025 ambulatory Nguyen Kurtz Facility:[facility] Start: 12-05-2024 End: 12-05-2024 Emergency department patient visit Nguyen Kurtz NP-C Work Phone: -Emergency Department Work Phone: Start: 10-02-2024 End: 10-02-[address] Tati Alvarez DO -[facility] Work Phone: Start: 10-02-2024 End: 10-02-2024 ambulatory Nguyen Kurtz TRAINING ADMINISTRATOR-C Work Phone: [facility] Work Phone: Start: 09-18-2024 End: 09-18-2024 Patient encounter procedure Nguyen Kurtz PRODUCTION FLOATER.POLITICAL DIRECTOR Work Phone: [facility] [place] Comment on above: Generalized skin cys ts (Primary Dx) Start: 09-18-2024 End: 09-18-2024 ambulatory NGUYEN KURTZ Facility:[facility] Start: 09-14-2024 End: 09-14-2024 Patient encounter procedure Nguyen Kurtz PRODUCTION FLOATER.POLITICAL DIRECTOR Work Phone: [facility] Comment on above: Cellulitis of skin ( Primary Dx) Start: 09-14-2024 End: 09-14-2024 ambulatory NGUYEN KURTZ Facility:[facility] Start: 08-28-2024 End: 08-28-2024 Follow-up encounter Nguyen Kurtz APRN.KENNEY Work Phone: [facility] Start: 08-10-2024 End: 08-10-2024 ambulatory NGUYEN KURTZ Facility:[facility] Start: 08-10-2024 End: 08-10-2024 Patient encounter procedure Nguyen Kurtz PRODUCTION FLOATER.POLITICAL DIRECTOR Work Phone: [facility] Comment on above: Acute pulmonary embo lism, unspecified pulmonary embolism type, unspecified whether acute cor pulmonale present (HCC) (Primary Dx); Lupus anticoagulant positive; Encounter for screening mammogram for breast cancer; Special screening examination for viral disease Start: 05-14-2024 Encounter for genera l adult medical examination without abnormal findings Jovan Hidalgo [facility] Start: 04-30-2024 End: 04-30-2024 ambulatory NGUYEN KURTZ Facility:[facility] Start: 04-30-2024 End: 04-30-2024 Office outpatient visit 25 minutes Doug Vernon APRN.KENNEY Work Phone: [facility] Comment on above: Rash (Primary Dx) Start: 03-28-2024 ambulatory Nguyen Kurtz Facilit y:[facility] Start: 03-28-2024 End: 03-28-2024 ambulatory Nguyen Kurtz Facility:[facility] Start: 03-23-2024 End: 03-26-2024 ambulatory Justin Whiteside MD Work Phone: Rheumatology Comment on above: Results Start: 03-23-2024 End: 03-26-2024 E-mail encounter from caregiver Justin Whiteside MD Work Phone: Rheumatology Start: 03-20-2024 End: 03-20-2024 ambulatory NGUYEN KURTZ Facility:[facility] Start: 03-20-2024 End: 03-20-2024 Patient encounter procedure Justin Whiteside MD Work Phone: Rheumatology Comment on above: Lupus anticoagulant positive (Primary Dx); Acute pulmonary embolism, unspecified pulmonary embolism type, unspecified whether acute cor pulmonale present (HCC) Start: 03-19-2024 End: 03-19-2024 ambulatory Jovan Hidalgo Facility:[facility] Start: 03-08-2024 ambulatory Nguyen Kurtz Facilit y:[facility] Start: 02-23-2024 End: 02-23-2024 ambulatory Matilda Rios Facility:[facility] Start: 01-31-2024 End: 01-31-2024 Emergency department patient visit Nguyen Kurtz Facility:[facility] Start: 01-31-2024 End: 01-31-2024 ambulatory Nguyen Kurtz PRODUCTION FLOATER.POLITICAL DIRECTOR Work Phone: Family [facility] Comment on above: Chest Pain Start: 01-27-2024 End: 01-27-2024 Refill Madeline Triplett PA-C [facility] Phone[facility] Comment on above: Refill Request Start: 01-26-2024 End: 01-27-2024 Telephone encounter Nguyen Kurtz APRN.POLITICAL DIRECTOR Work Phone: Family [facility] Comment on above: Results Start: 01-23-2024 End: 01-23-2024 ambulatory Nguyen Kurtz Facility:[facility] Start: 01-19-2024 End: 01-19-2024 Patient encounter procedure Nguyen Kurtz PRODUCTION FLOATER.POLITICAL DIRECTOR Work Phone: [facility] Comment on above: Incontinence of fece s, unspecified fecal incontinence type (Primary Dx); Acute pulmonary embolism, unspecified pulmonary embolism type, unspecified whether acute cor pulmonale present (HCC) Start: 01-19-2024 End: 01-19-2024 ambulatory NGUYEN KURTZ Facility:[facility] Start: 12-27-2023 Telephone encounter Georgeabhijit hand DO Work Phone: [facility] [place] Start: 12-22-2023 End: 12-22-2023 ambulatory NGUYEN TESSIE Facility:[facility] Start: 12-22-2023 End: 12-22-2023 Subsequent hospital visit by physician [facility] (I-Stat/1.5t) Work Phone: Radiology Comment on above: 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] Start: 11-18-2023 End: 11-18-2023 ambulatory NGUYEN KURTZ Facility:[facility] Start: 11-18-2023 End: 11-18-2023 Patient encounter procedure George Hollis DO Work Phone: [facility] Comment on above: Hemisensory deficit (Primary Dx); Hyperreflexia; Balance disorder; Spinal stenosis of cervical region; Midline thoracic back pain, unspecified chronicity Start: 10-19-2023 ambulatory Nguyen brizuela APRN.POLITICAL DIRECTOR Work Phone: Internal Medicine [place] [id number] Start: 09-01-2023 Telephone encounter Nguyen corley APRN.CNP Work Phone: [facility] Comment on above: Results Start: 08-31-2023 End: 08-31-2023 Subsequent hospital visit by physician [facility] (I-Stat/1.5t) Work Phone: Radiology Comment on above: Chronic low back cheryl n without sciatica, unspecified back pain laterality [M54.50, G89.29] Start: 08-08-2023 ambulatory Nguyen brizuela PRODUCTION FLOATER.POLITICAL DIRECTOR Work Phone: [facility] Comment on above: Chest Pain Start: 07-29-2023 End: 07-29-2023 Patient encounter procedure Nguyen Kurtz APRN.POLITICAL DIRECTOR Work Phone: [facility] Comment on above: Chronic low back cheryl n without sciatica, unspecified back pain laterality (Primary Dx); Radiculopathy of lumbar region; Urinary and bowel incontinence Start: 07-26-2023 End: 07-26-2023 Admission to same day surgery center TRAINING ADMINISTRATOR-C Nguyen Kurtz Work Phone: [facility]-Surgical Day [facility] Start: 07-26-2023 End: 07-26-2023 ambulatory TRAINING ADMINISTRATOR-Mac Kurtz Work Phone: [facility] Work Phone: Start: 07-15-2023 Telephone encounter Nguyen corley APRN.POLITICAL DIRECTOR Work Phone: [facility] Comment on above: Refill Request Start: 07-13-2023 End: 07-13-2023 ambulatory TRAINING ADMINISTRATOR-C Nguyen Kurtz Work Phone: [facility] Work Phone: Start: 07-13-2023 End: 07-13-2023 Patient encounter procedure TRAINING ADMINISTRATOR-Mac Kurtz Work Phone: [facility]-Laboratory, Specimen Work Phone: Start: 07-13-2023 End: 07-13-2023 Patient encounter procedure TRAINING ADMINISTRATOR-Mac Kurtz Work Phone: [facility] Work Phone: Start: 06-27-2023 End: 06-27-2023 Patient encounter procedure TRAINING ADMINISTRATOR-Mac Kurtz Work Phone: [facility] Work Phone: Start: 06-22-2023 End: 06-22-[address] Tati Alvarez Work Phone: [facility] Work Phone: Start: 06-22-2023 End: 06-22-[address] Tati Alvarez Work Phone: [facility]-Outpatient Pavilion Ultrasound Work Phone: Start: 06-20-2023 End: 06-20-2023 Subsequent hospital visit by physician [facility] Work Phone: Radiology Comment on above: Lumbar radiculopathy [M54.16] Start: 06-20-2023 End: 06-20-2023 Patient encounter procedure Nguyen Kurtz APRN.POLITICAL DIRECTOR Work Phone: [facility] Comment on above: Lumbar radiculopathy (Primary Dx); Chronic midline low back pain without sciatica; Encounter for smoking cessation counseling Start: 06-14-2023 End: 06-14-[address] Tati Alvraez Work Phone: [facility] Work Phone: Start: 06-14-2023 End: 06-14-[address] Tati Alvarez Work Phone: [facility]-Laboratory, Specimen Work Phone: Start: 06-14-2023 End: 06-14-[address] Tati Alvarez Work Phone: [facility] Work Phone: Start: 03-07-2023 Refill Nguyen brizuela APRN.POLITICAL DIRECTOR Work Phone: [facility] Comment on above: Refill Request Start: 01-24-2023 End: 01-24-2023 Subsequent hospital visit by physician [facility] Work Phone: Radiology Comment on above: Night sweats [R61] Start: 11-03-2022 Refill Nguyen brizuela APRN.CNP Work Phone: [facility] Comment on above: Refill Request Start: 10-25-2022 End: 10-25-[address] Bernie Harrell Work Phone: [facility] Work Phone: Start: 10-25-2022 End: 10-25-[address] Bernie Harrell Work Phone: [facility]-Laboratory, Specimen Start: 10-25-2022 End: 10-25-[address] Bernie Harrell Work Phone: [facility]-Now Clinic Start: 10-25-2022 End: 10-29-2022 Outreach Lab CHRISTOPHER VARGAS MD [facility] Start: 10-14-2022 End: 10-19-2022 ambulatory CHRISTOPHER VARGAS MD Facility:B Start: 10-14-2022 End: 10-18-2022 Outreach Lab CHRISTOPHER VARGAS MD [facility] Start: 10-14-2022 End: 10-15-2022 ambulatory CHRISTOPHER VARGAS MD Facility:[facility] Start: 10-14-2022 End: 10-14-2022 Patient encounter procedure CHRISTOPHER VARGAS MD [facility] Start: 09-29-2022 End: 09-29-2022 Emergency department patient visit Dr. Bernie Harrell Work Phone: [facility]-Emergency Department Start: 09-16-2022 End: 09-16-[address] Bernie Harrell Work Phone: [facility] Start: 09-16-2022 Telephone encounter Nguyen corley APRN.CNP Work Phone: [facility] [place] Comment on above: Results Start: 09-15-2022 Documentation procedure Mammog morris Coordinator [facility] Start: 09-15-2022 Letter encounter Mammography Coordinator [facility] Department Start: 09-15-2022 Telephone encounter Madeline ferguson PA-C Work Phone: [facility] Comment on above: Results Start: 09-13-2022 End: 09-13-2022 Patient encounter procedure Nguyen Kurtz APRN.CNP Work Phone: [facility] Comment on above: Screening for diabet es mellitus (Primary Dx); Encounter for lipid screening for cardiovascular disease; Encounter for wellness examination in adult; Lumbar radiculopathy; Other depression; Encounter for screening mammogram for malignant neoplasm of breast Start: 09-13-2022 End: 09-13-2022 Patient encounter status Nguyen Kurtz APRN.CNP Work Phone: [facility] Start: 05-02-2022 End: 05-02-2022 Emergency department patient visit [facility]-Emergency Department Start: 03-29-2022 End: 04-03-2022 ambulatory CHRISTOPHER VARGAS MD Facility:[facility] Start: 03-29-2022 End: 04-03-2022 Encounter for gynecological examination (general) (routine) without abnormal findings CHRISTOPHER VARGAS MD Facility:[facility] Procedures Date Procedure Procedure Detail Performing Clinician Start: 01-08-2025 Follicle stimulating hormone measurement Nguyen FAMC Work Phone: Comment on above: FEMALE:Follicular: 1 .4 - 18.1 mIU/mLMidcycle: 3.4 - 33.4 mIU/mLLuteal: 1.5 - 9.1 mIU/mLPost Menopause: 23.0 - 116.3 mIU/mLMALE: 1.4 - 18.1 mIU/mL Start: 12-05-2024 Estimated creatinine clearance Nguyen FAMC Work Phone: Start: 12-05-2024 CT angiography of ch est with contrast Nguyen FAMC Work Phone: Start: 03-28-2024 Colonoscopy Doug chu APRN.POLITICAL DIRECTOR Work Phone: Start: 12-22-2023 Mri brain brain stem w/o contrast material George Hollis DO Work Phone: Start: 08-31-2023 Mri spinal canal lum bar w/o & w/contr matrl Nguyen Kurtz APRN.POLITICAL DIRECTOR Work Phone: Start: 07-26-2023 Hysteroscopy with endometrial ablation TRAINING ADMINISTRATOR-C Nguyen Kurtz Work Phone: Start: 06-22-[address] Danni Alvarez Work Phone: Start: 06-22-[address] Tati Alvarez Work Phone: Start: 06-20-2023 Radex spine lumbosac ral minimum 4 views Nguyen Kurtz APRN.POLITICAL DIRECTOR Work Phone: Start: 01-24-2023 Radiologic exam ches t 2 views Nguyen Kurtz APRN.POLITICAL DIRECTOR Work Phone: Start: 01-24-2023 Radiologic exam knee complete 4/more views Nguyen Kurtz APRN.POLITICAL DIRECTOR Work Phone: Start: 09-29-[address] Bernie Harrell Work Phone: Start: 09-16-2022 X-ray of lumbar spin e, two or three views Dr. Bernie Harrell Work Phone: Start: 09-14-2022 Mammography Madeline ferguson PA-C Work Phone: Start: 09-13-2022 Lipid 1996 panel - S margo or Plasma Nguyen Kurtz APRN.POLITICAL DIRECTOR Work Phone: Start: 01-15-2016 Laparoscopic sterilization CHRISTOPHER VARGAS MD Start: 05-16-2006 Cholecystectomy CHRISTOPHER BALBUENA MD H/O: surgery H/O dilation and curettage Nguyen MARTINES Work Phone: Comment on above: Angelika H/O: surgery H/O dilation and curettage Dr. Tati Alvarez DO Urine culture Dr. Bernie dennis Work Phone: Plan of Treatment Date Care Activity Detail Author Start: 02-19-2032 Urine microalbumin profile DTaP,Tdap,Td Vaccine (2 - Td or Tdap) [facility] Start: 09-14-2027 Lipid panel Lipid Screening [facility] Start: 05-16-2027 HPV TESTING HPV TESTING [facility] Start: 05-16-2027 PAP TESTING PAP TESTING [facility] Start: 05-16-2027 Screening for malign ant neoplasm of cervix [facility] Start: 09-13-2025 Diabetes Screening Diabetes Screenin g [facility] Start: 08-10-2025 Covid-19 Vaccine ( season) Covid-19 Vaccine () [facility] Comment on above: Postponed from 01/14 (Declined at this time) Start: 08-10-2025 Pneumococcal vaccination Pneumococcal Vaccine (1 of 2 - PCV) [facility] Comment on above: Postponed from 08/04 (Declined at this time) Start: 03-28-2025 Screening for malign ant neoplasm of colon [facility] Start: 01-14-2025 Influenza vaccination Influenz a Vaccine (Season Ended) [facility] Start: 01-08-2025 Estradiol (E2) [Mass/volume] in Serum or Plasma [facility] Start: 01-08-2025 Follicle stimulating hormone measurement [facility] Start: 01-08-2025 [facility] Start: 12-05-2024 End: 12-05-2024 [facility] Start: 12-05-2024 [facility] Start: 11-12-2024 Influenza vaccination Influenza Vacc ine (#1) [facility] Comment on above: Postponed from 01/14 (Declined at this time) Start: 11-12-2024 End: 11-12-2024 Patient encounter procedure 11/12/2024 9:00 AM EDT Office Visit Family Medicine [address] [phone] Nguyen Kurtz APRN.[facility] [address] [place], [place] [phone] physical [facility] [place] Comment on above: physical Start: 09-18-2024 End: 09-18-2024 Patient encounter procedure 09/18/2024 9:00 AM EDT Office Visit [facility] [address] [facility] [place] [id number] Nguyen Kurtz APRN.POLITICAL DIRECTOR [address] [place] [address] follow up [facility] Comment on above: follow up Start: 08-17-2024 End: 08-17-2024 Patient encounter procedure 08/17/2024 11:30 AM EDT Appointment Mammogram [address] [place] [address] Encounter for screening mammogram for breast cancer [Z12.31 Mammogram Comment on above: Encounter for screen ing mammogram for breast cancer [Z12.31 Start: 08-10-2024 End: 11-09-2024 Hepatitis C virus Ab [Presence] in Serum [facility] Comment on above: Expected: 08/10/2024 , Expires: 11/09/2024 Start: 03-20-2024 End: 06-19-2024 BETA 2 GLYCOPROTEIN 1, IGA [facility] Comment on above: Expected: 03/20/2024 , Expires: 06/19/2024 Start: 03-20-2024 End: 06-19-2024 BETA 2 GLYCOPROTEIN, IGG [facility] Comment on above: Expected: 03/20/2024 , Expires: 06/19/2024 Start: 03-20-2024 End: 06-19-2024 BETA 2 GLYCOPROTEIN, IGM [facility] Comment on above: Expected: 03/20/2024 , Expires: 06/19/2024 Start: 03-20-2024 End: 06-19-2024 Cardiolipin IgA Ab [Units/volume] in Serum by Immunoassay [facility] Comment on above: Expected: 03/20/2024 , Expires: 06/19/2024 Start: 03-20-2024 End: 06-19-2024 CARDIOLIPIN IGG ABS [facility] Comment on above: Expected: 03/20/2024 , Expires: 06/19/2024 Start: 03-20-2024 End: 06-19-2024 CARDIOLIPIN IGM ABS [facility] Comment on above: Expected: 03/20/2024 , Expires: 06/19/2024 Start: 03-20-2024 End: 06-19-2024 Complement C3 [Mass/volume] in Serum or Plasma [facility] Comment on above: Expected: 03/20/2024 , Expires: 06/19/2024 Start: 03-20-2024 End: 06-19-2024 Complement C4 [Mass/volume] in Serum or Plasma [facility] Comment on above: Expected: 03/20/2024 , Expires: 06/19/2024 Start: 03-20-2024 End: 06-19-2024 Cyclic citrullinated peptide IgG Ab [Units/volume] in Serum or Plasma [facility] Comment on above: Expected: 03/20/2024 , Expires: 06/19/2024 Start: 03-20-2024 End: 06-19-2024 DNA double strand Ab [Units/volume] in Serum by Immunoassay [facility] Comment on above: Expected: 03/20/2024 , Expires: 06/19/2024 Start: 03-20-2024 End: 06-19-2024 Extractable nuclear Ab panel - Serum [facility] Work Phone: Comment on above: Expected: 03/20/2024 , Expires: 06/19/2024 Start: 03-20-2024 End: 06-19-2024 Nuclear Ab [Presence] in Serum by Immunoassay [facility] Comment on above: Expected: 03/20/2024 , Expires: 06/19/2024 Start: 03-20-2024 End: 06-19-2024 Rheumatoid factor [Units/volume] in Serum or Plasma [facility] Comment on above: Expected: 03/20/2024 , Expires: 06/19/2024 Start: 03-20-2024 End: 03-20-2024 Patient encounter procedure 03/20/2024 1:00 PM EST Office Visit Rheumatology [address] [place] [address] Justin Whiteside MD [address] [place] [id number] Lupus anticoagulant positive [R76.0] Rheumatology Comment on above: Lupus anticoagulant positive [R76.0] Start: 03-17-2024 Covid-19 Vaccine ( season) Covid-19 Vaccine () [facility] Comment on above: Postponed from 01/14 (Declined at this time) Start: 01-19-2024 End: 04-19-2024 HYPERCOAG DIAG PNL [facility] Work Phone: Comment on above: Expected: 01/19/2024 , Expires: 04/19/2024 Start: 01-15-2024 Covid-19 Vaccine () Covid-19 Vaccine () [facility] Start: 01-15-2024 Covid-19 Vaccine () Covid-19 Vaccine () [facility] Start: 01-15-2024 Influenza vaccination [facility] Start: 01-03-2024 End: 01-03-2024 Patient encounter procedure 01/03/2024 2:10 PM EDT Office Visit [facility] [id number] [place] [address] [place] [address] [place] [address] mri 3 follow up [facility] Comment on above: mri 3 follow up Start: 12-22-2023 End: 12-22-2023 Patient encounter procedure Radiology Comment on above: 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] Start: 11-18-2023 End: 11-18-2023 Patient encounter procedure 11/18/2023 10:10 AM EDT Office Visit [facility] [address] [place] [address] [place] [address] [place] [address] Lumbar radiculopathy [M54.16] [facility] Comment on above: Lumbar radiculopathy [M54.16] Start: 11-13-2023 Influenza vaccination Influenza Vacc ine (#1) [facility] Comment on above: Postponed from 01/14 (Declined at this time) Start: 09-15-2023 Mammography MAMMOGRAM [facility] Start: 09-15-2023 Screening for malign ant neoplasm of breast Mammogram Screening [facility] Start: 09-14-2023 COVID-19 VACCINE (4 - Booster for Moderna series) COVID-19 VACCINE (4 - Booster for Moderna series) [facility] Comment on above: Postponed from 02/05 (Declined at this time) Start: 09-14-2023 PNEUMOCOCCAL (1 - PCV) PNEUMOCOCCAL (1 - PCV) [facility] Comment on above: Postponed from 08/04 (Declined at this time) Start: 09-14-2023 Pneumococcal vaccination Pneumococcal Vaccine (1 of 2 - PCV) [facility] Comment on above: Postponed from 08/04 (Declined at this time) Start: 09-14-2023 Urine microalbumin profile DTAP,TDAP,TD (1 - Tdap) [facility] Comment on above: Postponed from 08/04 (Declined at this time) Start: 08-05-2023 Screening for malign ant neoplasm of colon [facility] Start: 07-26-2023 Urine test [facility] Start: 07-26-2023 Patient discharge [facility] Start: 06-14-2023 Liquid based cervica l cytology screening [facility] Start: 01-14-2023 Influenza vaccination INFLUENZ A (Season Ended) [facility] Start: 10-17-2022 End: 12-17-2022 CBC W Auto Differential panel - Blood CBC + DIFF Lab Routine Leukocytosis, unspecified type Expected: 10/17/2022, Expires: 12/17/2022 [facility] Work Phone: Comment on above: Expected: 10/17/2022 , Expires: 12/17/2022 Start: 09-13-2022 End: 11-13-2022 Comprehensive metabolic 2000 panel - Serum or Plasma [facility] Work Phone: Comment on above: Expected: 09/13/2022 , Expires: 11/13/2022 Start: 09-13-2022 End: 07-01-2023 Hemoglobin A1c in Blood [facility] Work Phone: Comment on above: Expected: 09/13/2022 , Expires: 11/13/2022 Start: 09-13-2022 End: 11-13-2022 LIPID PANEL, NONFASTING [facility] Work Phone: Comment on above: Expected: 09/13/2022 , Expires: 11/13/2022 Start: 2018 Mammography MAMMOGRAM [facility] Start: 1997 Pneumococcal vaccination Pneumococcal Vaccine (1 of 2 - PCV) [facility] Start: 1996 Anxiety Screening Anxiety Screening [facility] Start: 1996 HEPATITIS C SCREENING HEPATITIS C [facility] Start: 1996 Hepatitis C screening Hepatitis C [facility] Start: 1984 Pneumococcal vaccination Pneumococcal Vaccine (1 of 2 - PCV) [facility] End: 09-09-2025 DBT Breast - bilateral screening HENRI SCREENING W BENITEZ Radiology Routine Encounter for screening mammogram for breast cancer 1 Occurrences starting 08/10/2024 until 09/09/2025 [facility] Work Phone: Comment on above: 1 Occurrences starti ng 08/10/2024 until 09/09/2025 End: 10-13-2023 HENRI SCREENING HENRI SCREENING Radiology Routine Encounter for screening mammogram for malignant neoplasm of breast 1 Occurrences starting 09/13/2022 until 10/13/2023 [facility] Work Phone: Comment on above: 1 Occurrences starti ng 09/13/2022 until 10/13/2023 End: 11-17-2024 MG Breast Screening HENRI SCREENING Radiology Routine Encounter for screening mammogram for breast cancer 1 Occurrences starting 10/19/2023 until 11/17/2024 [facility] Work Phone: Comment on above: 1 Occurrences starti ng 10/19/2023 until 11/17/2024 End: 12-17-2024 MR Brain WO contrast MRI BRAIN WO IVCON Radiology Routine Hemisensory deficit Hyperreflexia Balance disorder 1 Occurrences starting 11/18/2023 until 12/17/2024 [facility] Comment on above: 1 Occurrences starti ng 11/18/2023 until 12/17/2024 End: 12-18-2024 MR Cervical spine WO contrast MRI CERVICAL SPINE WO IVCON Radiology Routine Hemisensory deficit Hyperreflexia Balance disorder Spinal stenosis of cervical region 1 Occurrences starting 11/18/2023 until 12/18/2024 [facility] Work Phone: Comment on above: 1 Occurrences starti ng 11/18/2023 until 12/18/2024 MR Lumbar spine [facility] End: 08-27-2024 MR Lumbar spine WO and W contrast IV MRI LUMBAR SPINE WO/W IVCON Radiology Routine Chronic low back pain without sciatica, unspecified back pain laterality Radiculopathy of lumbar region Urinary and bowel incontinence 1 Occurrences starting 07/29/2023 until 08/27/2024 [facility] Work Phone: Comment on above: 1 Occurrences starti ng 07/29/2023 until 08/27/2024 End: 12-17-2024 MR Thoracic spine WO contrast MRI THORACIC SPINE WO IVCON Radiology Routine Hemisensory deficit Hyperreflexia Balance disorder Midline thoracic back pain, unspecified chronicity 1 Occurrences starting 11/18/2023 until 12/17/2024 [facility] Comment on above: 1 Occurrences starti ng 11/18/2023 until 12/17/2024 Mullerian inhibiting substance [Mass/volume] in Serum or Plasma [facility] Path report.final Dx Spec [facility] Patient Education [facility] Work Phone: Patient referral [facility] Work Phone: Troponin T.cardiac [Mass/volume] in Serum or Plasma by High sensitivity method [facility] End: 01-18-2025 US Lower extremity vein US LEG VEIN DVT UNL VAS LAB Vascular Lab STAT Acute pulmonary embolism, unspecified pulmonary embolism type, unspecified whether acute cor pulmonale present (HCC) 1 Occurrences starting 01/19/2024 until 01/18/2025 [facility] Comment on above: 1 Occurrences starti ng 01/19/2024 until 01/18/2025 US Pelvis [facility] Immun[facility] Immunization Date Immunization Notes Care Provider Surekha stone 02-18-2022 tetanus toxoid, redu demetri diphtheria toxoid, and acellular pertussis vaccine, adsorbed; Translations: [Boostrix (Tdap)] CHRISTOPHER VARGAS MD [facility] 12-11-2021 SARS-CoV-2 (COVID-19 ) mRNA-1273 vaccine CHRISTOPHER VARGAS MD [facility] 10-30-2020 SARS-CoV-2 (COVID-19 ) mRNA-1273 vaccine CHRISTOPHER VARGAS MD [facility] 10-02-2020 SARS-CoV-2 (COVID-19 ) mRNA-1273 vaccine CHRISTOPHER VARGAS MD [facility] 01-08-2012 measles, mumps and rubella virus vaccine Nguyen Kurtz APRN.[facility] Work Phone: [facility] Payers Date Payer Category Payer Self-pay [id number] 2022 Medicaid [id number] 2011 Unknown [id number] 2011 Unknown [id number] 1978 Unknown [id number] 2.16.8 [id number] 1978 Unknown [id number] 2.16.8 [id number] 1978 Unknown [id number] 2.16.8 [id number] Unknown SELF INS [facility] [id number] Unknown [id number] 2.16.8 [id number] Unknown [id number] 2.16.8 [id number] Unknown [id number] 2.16.8 [id number] Unknown [id number] 2.16.8 [id number] Unknown [id number] 2.16.8 [id number] Unknown [id number] 2.16.8 [id number] Unknown [id number] 2.16.8 [id number] Unknown [id number] 2.16.8 [id number] Unknown [id number] 2.16.8 [id number] Unknown [id number] 2.16.8 [id number] Unknown [id number] 2.16.8 [id number] Social History Date Type Detail Facility Start: 05-02-2022 End: 07-07-2023 Tobacco smoking status NJIS Unknown if ever smoked [facility] Start: 01-13-2020 None [facility] Start: 01-13-2020 With Family [facility] Start: 1980 Sex Assigned At Female A [facility] Start: 01-28-2014 End: 03-20-2024 Tobacco smoking status NHIS Smokes tobacco daily [facility] Work Phone: History of tobacco use Cigarette Smoker [facility] Work Phone: Start: 01-28-2014 End: 11-18-2023 Cigarettes smoked current (pack per day) - Reported 0.5 [facility] Start: 01-28-2014 End: 03-20-2024 Tobacco use and exposure Smokeless tobacco non-user [facility] Work Phone: Start: 09-13-2022 End: 04-30-2024 Alcohol intake Current drinker of alcohol (finding) [facility] Start: 01-28-2014 [facility] Start: 1980 Sex Assigned At Not on file [facility] Start: 10-07-2022 Tobacco smoking status Light t obacco smoker (finding) [facility] Start: 09-13-2022 End: 11-18-2023 Tobacco use panel [facility] National Score (1-10 0), lower number is lower risk 66 [facility] Start: 11-17-2023 Gender identity Identifies as female gender (finding) [facility] Start: 11-17-2023 Sexual orientation Heterosexual (aidan ashton) [facility] Has the [employer], [employer], oil, or water uSamp threatened to shut off services in your home in past 12Mo No [facility] Do you belong to any clubs or organizations such as amish groups, unions, fraternal or athletic groups, or school groups? Yes [facility] Are you now , , , , never or living with a partner? Living with partner [facility] How often to you hav e a drink containing alcohol? Never [facility] (I/We) worried wheth er (my/our) food would run out before (I/we) got money to buy more. Never true [facility] Start: 03-26-2024 End: 12-05-2024 Tobacco smoking status NHIS Ex-smoker (finding) [facility] NEGATED: Highlighted bridgett [facility] Work Phone: NEGATED: Highlighted bridgett [facility] Functional Status Date Assessment Result Facility 12-18-2014 Are you deaf, or do you have serious difficulty hearing No 12/18/2014 3:21 PM Morena Pham MA No [facility] 12-18-2014 Are you blind, or do you have serious difficulty seeing, even when wearing glasses No 12/18/2014 3:21 PM Morena Pham MA No [facility] 12-18-2014 Do you have serious difficulty walking or climbing stairs No 12/18/2014 3:21 PM EDT Morena Daniel MA No [facility] 12-18-2014 Do you have difficul ty dressing or bathing No 12/18/2014 3:21 PM EDT Morena Daniel MA [facility] 12-18-2014 Because of a physica l, mental, or emotional condition, do you have difficulty doing errands alone such as visiting a physician's office or shopping No 12/18/2014 3:21 PM EDT Morena Daniel MA No [facility] Mental Status Date Assessment Result Facility 12-05-2024 Cognitive function Voice/Name [facility] Work Phone: 12-18-2014 Because of a physica l, mental, or emotional condition, do you have serious difficulty concentrating, remembering, or making decisions No 12/18/2014 3:21 PM EDT Morena Daniel MA No [facility] Clinical Notes 07-26-2011 to 12-05-2024 Note Date & Type Note Facility 12-05-2024 Radiology Diagnostic study note [facility] Services [address] [place] [address] CTA Chest W/WO Contrast MR#: [id number] Acct: [id number] Name: SPEEDY BLACKWOOD Rep #: [id number] : 1980 F 44 From: Kiara Topete MD PCP: CONRAD Miller Status: REG ER Study:CTA Chest W/WO Contrast Date of Exam: 12/05/24 Exam# [id number] Ordering Dr: Kera Weems DO PROCEDURE: CTA CHEST W/WO CONTRAST 12/05/2024 REASON FOR EXAM: CHEST PAIN, HISTORY OF PE TECHNIQUE: CTA CHEST W/WO CONTRAST Multiplanar Sagittal and Coronal images were obtained. CONTRAST: Isovue 370 VOLUME: 100 mL One or more dose reduction techniques were used (e.g., Automated exposure control, adjustment of the mA and/or kV according to patient size, use of iterative reconstruction technique). RADIATION DOSE SUMMARY: CTDlvol: 15 mGy DLP: 371 mGycm COMPARISON: 01/17/2024 FINDINGS: Unremarkable base of neck and axilla. Normal heart size. No aortic dissection. Normal esophagus. No pulmonary embolism. No acute chest wall findings. Enlarged liver with diffuse hepatic steatosis consistent with medical liver disease. No acute upper abdominal findings otherwise noted. Central airways are patent. Dependent atelectasis. No consolidation, effusion,or pneumothorax. CT/CTA Chest W/WO Contrast IMPRESSION: No embolism, dissection, or pneumonia. Suspect hepatitis. Reading Location: [place] [address] CC: CONRAD Kurtz; Dr. Armando Weems, DO ~ Cafeteria Cashier: Signed [facility] 10-02-2024 Evaluation note Diagnosis Onset Date Resolution H/O dilation and curettage acute October 02, 2024 3:19pm Herniation of intervertebral disc between L4 and L5 acute October 02, 2024 3:19pm Hot flashes acute October 02 3:19pm Irritable bowel syndrome affecting acute October 02 3:19pm Lower back pain acute October 02, 2024 3:19pm Lumbar facet joint pain acute M ay 2024 3:19pm Lupus acute October 02, 2024 3:19pm Menorrhagia acute October 02 3:19pm Neuropathy acute October 02, 2024 3:19pm Scoliosis acute October 02, 2024 3:19pm [facility] Work Phone: 1(325) 940-706705-20-2025 Evaluation note* Diagnosis Onset Date Resolution Status Admit Date H/O dilation and curettage acute October 02, 2024 3:19pm Herniation of intervertebral disc between L4 and L5 acute October 02, 2024 3:19pm Hot flashes acute October 02 3:19pm Irritable bowel syndrome affecting acute October 02 3:19pm Lower back pain acute October 02, 2024 3:19pm Lumbar facet joint pain acute M ay 2024 3:19pm Lupus acute October 02, 2024 3:19pm Menorrhagia acute October 02 3:19pm Neuropathy acute October 02, 2024 3:19pm Scoliosis acute October 02, 2024 3:19pm Climacteric acute January 08, 2025 10:14am [facility] Work Phone: 1(997) 360-700005-06-2025 NoteHNO ID: [id number] Author: NGUYEN KURTZ APRN.POLITICAL DIRECTOR Service: ? Author Type: Nurse Practitioner Type: [...] CONSULT TO DERMATOLOGY Nguyen Kurtz APRN.[facility]05-06-2025 History of Present illness Narrative* Nguyen Kurtz APRN.POLITICAL DIRECTOR - 09/18/2024 8:56 AM EDT Chief Complaint Patient presents with: Follow Up [...] L72.9 - CONSULT TO DERMATOLOGY Nguyen Kurtz APRN.KENNEY documented in this encounterBlanchard Valley Health System05-02-2025 NoteHNO ID: [id number] Author: NGUYEN KURTZ APRN.KENNEY Service: ? Author [...] 500 MG CAPSULE Nguyen Kurtz APRN.[facility]05-02-2025 History of Present illness Narrative* Nguyen Kurtz APRN.POLITICAL DIRECTOR - 09/14/2024 8:58 AM EDT Chief Complaint Patient presents with: Follow Up: [...] CAPSULE Nguyen Kurtz APRN.CNP documented in this encounterBlanchard Valley Health System04-15-2025 Telephone encounter Note * Telephone Encounter - Nguyen Kurtz APRN.CNP - 08/28/2024 9:25 AM EDT Opened in Error. [facility]04-15-2025 Miscellaneous Notes* Telephone Encounter - Nguyen Kurtz APRN.CNP - 08/28/2024 9:25 AM EDT Opened in Error. documented in this encounterBlanchard Valley Health System03-28-2025 NoteHNO ID: [id number] Author: NGUYEN KURTZ APRN.CNP Service: ? Author [...] IA WITH CONFIRMATION Nguyen Kurtz APRN.[facility]03-28-2025 History of Present illness Narrative* Nguyen Kurtz APRN.POLITICAL DIRECTOR - 08/10/2024 12:56 PM EDT Chief Complaint Patient presents with: Follow Up [...] done Covid-19 Vaccine(2023- season) due on 01/15/2024 Colorectal Cancer Screening [...] to stop eliquis at this time. Continue smokingcessation 2. Lupus anticoagulant positive - ICD9: 795.79, [...] C ANTIBODY IA WITH CONFIRMATION Nguyen Kurtz APRN.POLITICAL DIRECTOR documented in this encounterBlanchard Valley Health System12-16-2024 NoteHNO ID: [id number] Author: DOUG VERNON APRN.POLITICAL DIRECTOR Service: ? Author Type: Nurse Practitioner Type: [...] clinical finding, the patient (more content not included)...[facility]12-16-2024 History of Present illness Narrative* Doug Vernon APRN.[facility] - 04/30/2024 7:52 AM EST Images from the original note were not [...] 2016 PAST SURGICAL HISTORY OF dental extraction ALLERGIES [...] of care. This note was generated using [employer] software. It may contain errors in wording, punctuation, or spelling. Doug Vernon APRN.KENNEY documented in this encounterBlanchard Valley Health System11-13-2024 [facility] Medical Records Department [address] [place] [address] History Physical Exam 03/28/24 1358 MR#: [id number] Acct: [id number] Name: SPEEDY BLACKWOOD Rep #: [id number] : 1980 43 From: Jovan Friend DO PCP: Nguyen Kurtz, TRAINING ADMINISTRATOR-C Status:REG [facility] Location: [place] [address] History and Physical Date of Admission: 03/28/24 SPEEDY BLACKWOOD, is a 43 F who presents to the office today for establishment with [facility]. Pt has a past medical hx of [...] yo female here today for establishment with [facility] for evaluation of fecal incontinence and [...] (if applicable): CC: CONRAD Kurtz; Jovan Hidalgo, SignedWSelect [facility]11-05-20[facility] Instructions* Patient Instructions* Justin Whiteside MD - 03/20/2024 1:32 PM EST Labs today I will contact you through [facility] for results. documented in this encounterBlanchard Valley Health System11-05-2024 History of Present illness Narrative* Justin Whiteside MD - 03/20/2024 1:00 PM EST MD Speedy Paniagua March 19, 2024 Referring Provider:Nguyen Kurtz PCP: Nguyen Kurtz APRN.POLITICAL DIRECTOR Chief Complaint: Patient presents with: Consult HPI:Speedy [...] Exam: BP 119/71 Pulse 91 Ht 5' 4 (1.63m) Wt 166 lb (75.3kg) LMP 08/15/2018 [...] for: CCPABG RF: No results found for: RF ESR: No results found for: WSR CRP CRP (mg/dL) Date Value 01/19/2024 7.6 Quantiferon:No components found for: QTBA Cr: No components found for: CR CBC: Imaging: Impression: 43 year old female presents for rheumatology evaluation at [facility] on March 19, 2024. Pulmonary embolism Positive anticardiolipin IgM Former smoker I have a low suspicion that we are dealing with antiphospholipid antibody syndrome given that she does not have history of recurrent VTE or miscarriages. Her anticardiolipin IgM is also only positiveat low titer. Will repeat her anticardiolipin again as a result could be falsely positive. Will also obtain beta-2 glycoprotein. LA cannot be done as she is still taking Eliquis. Since antiphospholipid antibody syndrome can sometimes be seen in association with connective tissue disease, will obtain COLETTE and PRANAV panel as well although my suspicion for underlying autoimmune CTDis low given the absence of any signs symptoms. Recommendations/Plan Plan discussed with patient Return Visit: I will contact her through [facility] for results. We will make a plan after the resultsare available. I spent a total of 50 minutes on the date of the service which included preparing to see the patient, [id number] patient care, completing clinical documentation, obtaining and/or reviewing separately obtained history, performing a medically appropriate examination, counseling and educating the pat ient/family/caregiver, and ordering medications, tests, or procedures. Justin Whiteside MD Referring Provider:Nguyen Kurtz PCP: Nguyen Kurtz APRN.CNP Answers submitted by the patient for this [...] Yes Swollen Glands: No documented in this encounterBlanchard Valley Health System11-05-2024 NoteHNO ID: [id number] Author: JUSTIN WHITESIDE MD Service: ? Author Type: Physician Type: Progress Notes Filed: 03/20/2024 14:11 Note Text: Justin Whiteside MD Speedy Blackwood March 19, 2024 Referring Provider:Nguyen Kurtz PCP: Nguyen Kurtz APRN.POLITICAL DIRECTOR Chief Complaint: Patient presents with: Consult HPI:Speedy [...] Exam: BP 119/71 Pulse 91 Ht 5' 4 (1.63m) Wt 166 lb (75.3kg) LMP 08/15/2018 [...] tender, not swollen A (more content not included)...[facility]09-17-2024 Telephone encounter Note* Telephone Encounter - Shawn Birch RN - 01/31/2024 5:00 PM EDT Patient calls for chest pain. Nurse triage [...] fever, difficulty breathing, cough Protocols used: Chest [id number] [facility]09-17-2024 Miscellaneous Notes* Telephone Encounter - Shawn Birch RN - 01/31/2024 5:00 PM EDT Patient calls for chest pain. Nurse triage [...] fever, difficulty breathing, cough Protocols used: Chest [id number] documented in this encounterBlanchard Valley Health System09-13-2024 Telephone encounter Note * Telephone Encounter - Aby Strickland LPN - 01/27/2024 11:38 AM EDT Prescription Refill Information The patient has been [...] Strickland LPN January 27, 2024 11:39 AM [facility]09-13-2024 Miscellaneous Notes* Telephone Encounter - Aby Strickland LPN - 01/27/2024 11:38 AM EDT Prescription Refill Information The patient has been [...] 27, 2024 11:39 AM documented in this encounterBlanchard Valley Health System09-13-2024 Telephone encounter Note * Telephone Encounter - Sherry Ritchie LPN - 01/27/2024 10:41 AM EDT Patient calling back said Dr Toth does not take her insurance, assisted with transfer to pupil personnel services director to get appt set up for Rheumatology. [facility]09-13-2024 Miscellaneous Notes* Telephone Encounter - Sherry Ritchie LPN - 01/27/2024 10:41 AM EDT Patient calling back said Dr Toth does not take her insurance, assisted with transfer to pupil personnel services director to get appt set up for Rheumatology. * Telephone Encounter - Nan Bradford MA - 01/27/2024 9:06 AM EDT Pt prefers to stay local, referrals, OV, lab, demo, insurance cards, faxed to Dr. Toth's office. Pt notified to call and make appt. Nan Bradford MA * Telephone Encounter - Nguyen Kurtz APRN.CNP - 01/26/2024 4:54 PM EDT Please let patient know her lupus panel was abnormal. I have placed an order for her to see rheumatology for evaluation. documented in this encounterBl[facility]09-13-2024 Telephone encounter Note * Telephone Encounter - Nan Bradford MA - 01/27/2024 9:06 AM EDT Pt prefers to stay local, referrals, OV, lab, demo, insurance cards, faxed to Dr. Toth's office. Pt notified to call and make appt. Nan Bradford MA [facility]09-12-[facility] Telephone encounter Note* Telephone Encounter - Nguyen Kurtz APRN.CNP - 01/26/2024 4:54 PM EDT Please let patient know her lupus panel was abnormal. I have placed an order for her to see rheumatology for evaluation. [facility]09-05-2024 NoteHNO ID: [id number] Author: NGUYEN KURTZ APRN.CNP Service: ? Author [...] INHALER - INHALATIONAL SPACING DEVICE Nguyen Kurtz APRN.[facility]09-05-2024 History of Present illness Narrative* Nguyen Kurtz APRN.POLITICAL DIRECTOR - 01/19/2024 8:51 AM EDT Chief Complaint Patient presents with: Diarrhea: X 1 week ER F/U: Pulmonary embolism HPI Speedy Blackwood is a 43 year old female who presents here today for Above Complaints.. Patient presents for ER follow up. Patient was diagnosed with PE and started on Eliquis. Patient reports she quit smoking when she was diagnosed with PE. Also reports over the past few months she hashad a burning sensation in her right leg [...] Out Hepatitis B Vaccine Discontinued ASSESSMENT/PLAN: 1. \Incontinence of feces, unspecified fecal incontinence type - [...] INHALER - INHALATIONAL SPACING DEVICE Nguyen Kurtz APRN.POLITICAL DIRECTOR documented in this encounterBlanchard Valley Health System08-13-2024 Telephone encounter Note * Telephone Encounter - Evaristo Miramontes MA - 12/27/2023 10:04 AM EDT Called patient to verify recent mri's (3) were completed and of upcoming follow up appointment to discuss results on 01/03/24. Patient had no questions at this time. [facility]08-13-[facility] Miscellaneous Notes* Telephone Encounter - Evaristo Miramontes MA - 12/27/2023 10:04 AM EDT Called patient to verify recent mri's (3) were completed and of upcoming follow up appointment to discuss results on 01/03/24. Patient had no questions at this time. documented in this encounterBlanchard Valley Health System08-08-2024 History of Present illness Narrative* Adriana Estevez, RT(R) - 12/22/2023 1:00 PM EDT Radiology Service Progress Note PATIENT NAME: Speedy Blackwood DATE OF SERVICE: December 22, 2023 TIME: 1:07 PM PATIENT IDENTITY VERIFICATION COMPLETED USING TWO (2) IDENTIFIERS: Name and Date of confirmedby patient verbally. FALL SCREENING: Has the patient had 2 falls in the last year or 1 fall with injury or currently using an Ambulatory Assistive Device (Walker, Cane, Wheelchair, Crutches, etc.)? No PATIENT GENDER DATA: Female. status: : No status: NO. PATIENT RELEVANT IMPLANT DATA REVIEWED: Yes PATIENT PRESENTS WITH AN IMPLANTABLE OR ATTACHED LEATHER POLISHER: No RADIOLOGY DEPARTMENT: MR; Exam(s) Completed: Head: Routine Brain Spine: Cervical spine and Thoracic spine PERIPHERAL IV DATA: Not applicable SIGNED BY: SONU Boone) December 22, 2023 1:07 PM documented in this encounterBlanchard Valley Health System08-08-2024 NoteHNO ID: [id number] Author: ADRIANA ESTEVEZ RT(R) Service: ? Author [...] PATIENT PRESENTS WITH AN IMPLANTABLE OR ATTACHED LEATHER POLISHER: No RADIOLOGY DEPARTMENT: MR; Exam(s) Completed: Head: Routine Brain Spine: Cervical spine and Thoracic spine PERIPHERAL IV DATA: Not applicable SIGNED BY: SONU Boone) December 22, 2023 1:07 [facility]07-08-2024 Instructions* Patient Instructions* George Hollis DO - 11/21/2023 1:59 AM EDT Images from the original note were not included. Chronic Lumbar Radiculopathy (Leg Pain) Overview: Symptoms of a pinched nerve in the leg (lumbar radiculopathy) include numbness, tingling and evenweakness. Leg pain is usually worse than back [...] (Tylenol) is recommended if you cannot take anti- inflammatory medications. Medications effective for nerve pain such as gabapentin (Neurontin), pregabalin (Lyrica) or some antidepressants may be helpful for leg pain. A short course of oral steroids (prednisone or Medrol) may help alleviate severe, acute inflammation. For persistent pain despite oral medications and physical therapy, an epidural corticosteroid injection (block) may be recommended if an MRI or CT scan confirms nerve impingement (pinched nerve). Remaining as active as possible and resuming [...] your bowels These are warning signs or red flags that require prompt, urgent medical attention. SIGNATURE: George Hollis DO PATIENT NAME: Speedy Blackwood DATE: November 21, 2023 TIME: 1:59 AM documented in this encounterBlanchard Valley Health System07-08-2024 NoteHNO ID: [id number] Author: GEORGE HOLLIS, DO Service: ? Author Type: Physician Type: [...] as above for many years. Worked in [employer] in 2006. Has been dealing with bladder [...] Take 0.1 mg by (more content not included)...[address]08-2024 History of Present illness Narrative* George Hollis Obed, DO - 11/21/2023 1:56 AM EDT Images from the original note [...] Kurtz for an opinion regarding low back andleg symptoms.. My final recommendations will be communicated [...] as above for many years. Worked in [employer] in 2006. Has been dealing with bladder [...] EXAM Resp 12 Ht 162.6 cm (5' 4) Wt 76.2 kg (168 lb) LMP 08/15/2018 [...] 5/5 Ankle Plantarflexion 5/5 5/5 Knee Extension 5/ 5/5 Nevaeh's Exam: Deferred Hip Range of [...] changes at the L4-L5 and L5-S1 level withposterior annular changes likely suggesting annular tears. No significant foraminal narrowing ASSESSMENT/PLAN (R29.818) Hemisensory deficit (primary encounter diagnosis) Comment: On exam patient with evidence of left hemisensory deficits not sparing the face. This in combination with her numerous other pain complaints, hyperreflexia in the upper and lower limbs and some balance deficits are concerning for potential central nervous system process. In light of these f indings we will schedule the patient for a [...] upper and lower limbs cannot rule out potentialfor cervical myelopathy or central canal stenosis. Will [...] SIGNATURE: George Hollis DO PATIENT NAME: Speedy Mendozaay DATE: November 21, 2023 TIME: 1:59 AM CC: Sent electronically Nguyen Kurtz [facility] [place] [address] documented in this encounterBlanchard Valley Health System06-05-2024 NotePatient Outreach (INTMMN) JAISONSPEEDY ([id number]) 1980 F [employer] Date Time Provider Department 10/19/23 NGUYEN KURTZ During your visit today, we recorded the following information about you: Allergies As of Date: 10/19/2023 (No Known Allergies) Date Reviewed: 07/29/2023 Reviewed by: Pratibha Ha MA - Fully Assessed Visit Diagnosis:Encounter for screening mammogram for breast cancer [Z12.31] Order(s):[facility] SCREENING [1606276] Order #: [id number] FUTURE Prescriptions as of 10/24/2023 - gabapentin [...] Personal history of tobacco use, presenting haz*06/28/2011 [facility] HIGH RISK NEC [V23.89] [O09.899]07/26/2011 11/22/2013 Leg pain [M79.606] 08/31/2011 Tobacco abuse [Z72.0] 12/26/2013 Depression [F32.A] 12/26/2013 Discogenic pain [M54.9] 06/19/2014 DDD (degenerative disc disease), lumbar [M51.36]06/19/2014 Chronic back pain [M54.9, G89.29] 06/19/2014 Encounter Status:Closed by SHERIE OJEDA on 10/24/23[facility] 09-01-2023 Miscellaneous Notes* Telephone Encounter - Pratibha Ha MA - 09/01/2023 12:46 PM EDT Pt notified and will call back to schedule Pratibha Ha MA * Telephone Encounter - Nguyen Kurtz APRN.CNP - 09/01/2023 10:16 AM EDT Please let patient know MRI shows mild narrowing of the spine. I would like her to schedule with spine, ortho and pt as previously instructed. documented in this encounterBlanchard Valley Health System04-17-2024 History of Present illness Narrative* Adriana Estevez RT(R) - 08/31/2023 9:20 AM EDT Radiology Service Progress Note DATE OF SERVICE: [...] PATIENT PRESENTS WITH AN IMPLANTABLE OR ATTACHED LEATHER POLISHER: No ALLERGIES: Reviewed and unchanged CONTRAST ALLERGY: NO. EXAM: MRI - CONTRAST TYPE: GROUP II PERIPHERAL IV DATA: Ambulatory: A peripheral IV was started in the Left antecubital site with a Angio cath: 22 gauge. RADIOLOGY DEPARTMENT: MR; Exam(s) Completed: Spine: Lumbar spine SIGNATURE: RT Mely(Dat) PATIENT NAME: Speedy Blackwood DATE: August 31, 2023 TIME: 9:22 AM documented in this encounterBlanchard Valley Health System03-25-2024 Miscellaneous Notes* Telephone Encounter - Dianne Kent RN - 08/08/2023 12:50 PM EDT Protocol recommends go to the ER now. Pt states she has someone to drive her. Care plan reviewed with patient. Patient voices understanding. Advised patient that if symptoms get worse to call 911. Reason for Disposition [1] Chest pain (or angina) comes and goes AND [2] is happening [...] the end of June. Protocols used: Chest Pqnu-[id number]-MG documented in this encounterBlanchard Valley Health System03-15-2024 History of Present illness Narrative* Nguyen Kurtz APRN.POLITICAL DIRECTOR - 07/29/2023 1:29 PM EDT Chief Complaint Patient presents with: bowel incontinence: [...] - CONSULT TO PHYSICAL THERAPY Nguyen Kurtz APRN.POLITICAL DIRECTOR documented in this encounterBlanchard Valley Health System03-01-2024 Miscellaneous Notes* Telephone Encounter - Madeline Triplett PA-C - 07/15/2023 2:17 PM EST The following approved medication requests have been transmitted electronically. Requested Prescriptions Signed Prescriptions Disp Refills gabapentin (NEURONTIN) 100 mg capsule 45 capsule 0 Sig: Take 1 capsule by mouth every other day for 90 days. Authorizing Provider: MADELINE TRIPLETT PA-C * Telephone Encounter - Edilma De Souza - 07/15/2023 1:14 PM EST Patient states she is still taking this medication please advise. Patient has been identified by name and date of : Yes Disp Refills Start End gabapentin (NEURONTIN) 100 mg capsule (Discontinued) RX INSTRUCTIONS: Patient aware RX will be sent to pharmacy. No need to notify patient. Edilma Escobar documented in this encounterBlanchard Valley Health System02-05-2024 History of Present illness Narrative* Emely Oliva RT(R) - 06/20/2023 9:20 AM EST Radiology Service Progress Note PATIENT NAME: Speedy Blackwood DATE OF SERVICE: June 20, 2023 TIME: 9:22 AM PATIENT IDENTITY VERIFICATION COMPLETED USING TWO (2) IDENTIFIERS: Name and Date of confirmedby patient verbally. FALL SCREENING: Has the patient had 2 falls in the last year or 1 fall with injury or currently using an Ambulatory Assistive Device (Walker, Cane, Wheelchair, Crutches, etc.)? No PATIENT GENDER DATA: Female. status: : No status: NO. PATIENT RELEVANT IMPLANT DATA REVIEWED: Yes PATIENT PRESENTS WITH AN IMPLANTABLE OR ATTACHED LEATHER POLISHER: No RADIOLOGY DEPARTMENT: General X-ray: Exam(s) Completed: Spine X-Ray(s): Lumbar AP / LAT / L5-S1 / FLEX-EXT PERIPHERAL IV DATA: Not applicable SIGNED BY: RT Kate(R) June 20, 2023 9:22 AM documented in this encounterBlanchard Valley Health System02-05-2024 History of Present illness Narrative* Nguyen Kurtz APRN.POLITICAL DIRECTOR - 06/20/2023 8:58 AM EST Chief Complaint Patient presents with: Back Pain: [...] to go on HRT for menopause however EDUCATION DEPARTMENT CHAIR wants her to quit smoking first. Past [...] BUPROPION XL 150 MG TAB Nguyen Kurtz APRN.POLITICAL DIRECTOR documented in this encounterBlanchard Valley Health System01-30-2024 NotePap Smear Specimen AdequacyJanuary 2023 12:22pmSee commentSatisfactory for evaluation. Endocervical and/or squamousmetaplastic cells (endocervical component)are present.[facility] INTERFACED A#[id number] Medical Specialty Hospital - Boardman, IncComment on above: Satisfactory for evaluation. Endocervical and/or squamousmetaplastic cells (endocervical component)are present.06-14-2023 NotePap Smear Specimen Adequacy June 14, 2023 12:22pmSee commentSatisfactory for evaluation. Endocervical and/or squamousmetaplastic cells (endocervical component)are present.[facility] INTERFACED A#[id number] Medical Specialty Hospital - Board[facility], IncComascension genesys hospital on above:Satisfactory for evaluation. Endocervical and/or squamousmetaplastic cells (endocervical component)are present.06-14-2023 NotePap Smear Specimen AdequacyJan2023 1:22pmSee commentSatisfactory for evaluation. Endocervical and/or squamousmetaplastic cells (endocervical component)are present.[facility] INTERFACED A#[id number] Medical Specialty Hospital - [facility], IncComment on above:Satisfactory for evaluation. Endocervical and/or squamousmetaplastic cells (endocervical component)are present.03-07-2023 Telephone encounter Note* Telephone Encounter - Edilma Orellana MA - 03/07/2023 2:09 PM EDT [place] 01/24/23 03/17/23 Edilma Orellana MA [facility]10-23-2023 Miscellaneous Notes* Telephone Encounter - Edilma Orellana MA - 03/07/2023 2:09 PM EDT [place] 01/24/23 03/17/23 Edilma Orellana MA * Telephone Encounter - Edilma De Souza - 03/07/2023 11:20 AM EDT Patient has been identified by name and date of : Yes Requested Prescriptions Pending Prescriptions Disp Refills gabapentin (NEURONTIN) 100 mg capsule 90 capsule 0 Sig: Take 1 capsule by mouth every other day for 180 days. RX INSTRUCTIONS: Patient aware RX will be sent to pharmacy. No need to notify patient. Edilma Escobar documented in this encounterBlanchard Valley Health System10-23-2023 Telephone encounter Note * Telephone Encounter - Edilma De Souza - 03/07/2023 11:20 AM EDT Patient has been identified by name and date of : Yes Requested Prescriptions Pending Prescriptions Disp Refills gabapentin (NEURONTIN) 100 mg capsule 90 capsule 0 Sig: Take 1 capsule by mouth every other day for 180 days. RX INSTRUCTIONS: Patient aware RX will be sent to pharmacy. No need to notify patient. Edilma Escobar [facility] Work Phone: [phone] History of Present illness Narrative* Emely Oliva RT(R) - 01/24/2023 2:10 PM EDT Radiology Service Progress Note PATIENT NAME: Speedy Blackwood DATE OF SERVICE: January 24, 2023 TIME: 2:07 PM PATIENT IDENTITY VERIFICATION COMPLETED USING TWO (2) IDENTIFIERS: Name and Date of confirmedby patient verbally. FALL SCREENING: Has the patient [...] 24, 2023 2:07 PM documented in this encounterBlanchard Valley Health System06-21-2023 Miscellaneous Notes* Telephone Encounter - Doug Barker MD - 11/03/2022 10:27 PM EDT The following approved medication requests have been transmitted electronically. Requested Prescriptions Signed Prescriptions Disp Refills FLUoxetine (PROZAC) 20 mg capsule 30 capsule 3 Sig: Take 1 capsule by mouth once daily. Authorizing Provider: DOUG BARKER MD * Telephone Encounter - Lulu Escobar - 11/03/2022 12:04 PM EDT Patient has been identified by name and [...] and advise. Lulu Escobar documented in this encounterBlanchard Valley Health System05-11-2023 Miscellaneous Notes* Telephone Encounter - Shawn Birch RN - 09/23/2022 3:07 PM EDT Patient calls and notified of results and providers instructions. Patient verbalizes understanding. Patient called from the [phone] number. No phone number update at this time. Shawn Birch RN * Telephone Encounter - BOOKER Daley - 09/20/2022 10:48 AM EDT TC to patient but line beeps and says the number you reached has been disconnected. Patient has not logged in to since 2011 and therefore can not send message. Letter printed and mailed to patients address informing to contact office for recent lab results. BOOKER Daley * Telephone Encounter - Shawn Birch RN - 09/16/2022 3:01 PM EDT Call placed to patient with no answer. Message left for patient to return call and ask to speak to a triage nurse to receive provider message. Shawn Birch RN * Telephone Encounter - Nguyen Kurtz APRN.POLITICAL DIRECTOR - 09/16/2022 2:09 PM EDT Please let patient know her triglycerides are high and she should decrease the amount of processed foods she eats. Patient also has elevated WBC which could be from inflammation with her current backproblems. I would like her to recheck her CBC in a month. The order is placed and she may do this at her convenience. documented in this encounterBlanchard Valley Health System05-03-2023 Miscellaneous Notes* Telephone Encounter - Rashard Lombardo LPN - 09/15/2022 1:57 PM EDT Pt notified of same. Rashard Lombardo LPN * Telephone Encounter - Rashard Lombardo LPN - 09/15/2022 1:56 PM EDT ----- Message from Madeline Triplett PA-C sent at 09/15/2022 11:33 AM EDT ----- Normal mammogram. Repeat in 1 year. documented in this encounterBlanchard Valley Health System05-03-2023 Miscellaneous Notes* Letter - Mammography Coordinator - 09/15/2022 7:54 AM EDT September 15, 2022 PID: [id number] Speedy Blackwood [address] [place] [address] Dear Ms. Blackwood, We are pleased to [...] dense breast tissue in addition to other riskfactors. Early detection of cancer is very important. We also understand recommendations regarding breast cancer screening are controversial. Please discuss with your primary care provider which strategy is best for you and whether a mammogram is right for you. Your imaging studies and report will be kept on file at [facility] as part of your permanent medical record and are available for your continuing care. Thank you for allowing us to help in meeting your health care needs. Sincerely, Dr. Medrano Interpreting Radiologist [facility] (Normal over 40) documented in this encounterBlanchard Valley Health System05-01-2023 Instructions* Patient Instructions* Nguyen Kurtz APRN.CNP - 09/13/2022 4:15 PM EDT Continue current medications Schedule mammogram Schedule schedule with Dr. Gutierrez Complete labs Follow up in 6 months documented in this encounterBlanchard Valley Health System05-01-2023 History of Present illness Narrative* Nguyen Kurtz APRN.CNP - 09/13/2022 3:46 PM EDT Chief Complaint No chief complaint on file. SEGUNDO Blackwood is a 42 year old female [...] No history of dysuria, frequency or incontinence HEEL BREASTER: Negative for abnormal vaginal bleeding, abnormal vaginal [...] diet of 1000 mg/day for under 50, 1200- 1500 mg/day for 50+ - Discussed need and [...] - BUSPIRONE 10 MG TABLET Nguyen Kurtz APRN.POLITICAL DIRECTOR documented in this encounterBlanchard Valley Health System03-12-2012 History of Past illness Narrative* Problem Noted Date Resolved Date SUPRF HIGH RISK NEC [V23.89] 2 11/22/2013 Calculus of gallbladder with out mention of cholecystitis or obstruction 10/02/2007 06/28/2011 Abdominal pain, right upper quadrant 06/28/2011 Nonspecific elevation of lev els of transaminase or lactic acid dehydrogenase (LDH) 06/28/2011 documented as of this encounter (statuses as of 09/14/2022) [facility]03[facility] History of Past illness Narrative* Problem Noted Date Resolved Date SUPRF HIGH RISK NEC [V23.89] 2 11/22/2013 Calculus of gallbladder with out mention of cholecystitis or obstruction 10/02/2007 06/28/2011 Abdominal pain, right upper quadrant 06/28/2011 Nonspecific elevation of lev els of transaminase or lactic acid dehydrogenase (LDH) 06/28/2011 documented as of this encounter (statuses as of 09/15/2022) [facility] of Past illness Narrative* Problem Noted Date Resolved Date SUPRF HIGH RISK NEC [V23.89] 2 11/22/2013 Calculus of gallbladder with out mention of cholecystitis or obstruction 10/02/2007 06/28/2011 Abdominal pain, right upper quadrant 06/28/2011 Nonspecific elevation of lev els of transaminase or lactic acid dehydrogenase (LDH) 06/28/2011 documented as of this encounter (statuses as of 09/17/2022) [facility] of Past illness Narrative* Problem Noted Date Resolved Date SUPRF HIGH RISK NEC [V23.89] 2 11/22/2013 Calculus of gallbladder with out mention of cholecystitis or obstruction 10/02/2007 06/28/2011 Abdominal pain, right upper quadrant 06/28/2011 Nonspecific elevation of lev els of transaminase or lactic acid dehydrogenase (LDH) 06/28/2011 documented as of this encounter (statuses as of 09/24/2022) [facility] of [facility] illness Narrative* Problem Noted Date Resolved Date SUPRF HIGH RISK NEC [V23.89] 2 11/22/2013 Calculus of gallbladder with out mention of cholecystitis or obstruction 10/02/2007 06/28/2011 Abdominal pain, right upper quadrant 06/28/2011 Nonspecific elevation of lev els of transaminase or lactic acid dehydrogenase (LDH) 06/28/2011 documented as of this encounter (statuses as of 11/04/2022) [facility] of [facility] illness Narrative* Problem Noted Date Diagnosed Date Resolved Date SUPRF HIGH RISK NEC [V23.89] 07/26/2011 11/22/2013 Calculus of gallbladder with out mention of cholecystitis or obstruction 10/02/2007 06/28/2011 Abdominal pain, right upper quadrant 06/28/2011 Nonspecific elevation of lev els of transaminase or lactic acid dehydrogenase (LDH) 06/28/2011 documented as of this encounter (statuses as of 06/20/2023) [facility] illness Narrative* Problem Noted Date Diagnosed Date Resolved Date SUPRF HIGH RISK NEC [V23.89] 07/26/2011 11/22/2013 Calculus of gallbladder with out mention of cholecystitis or obstruction 10/02/2007 06/28/2011 Abdominal pain, right upper quadrant 06/28/2011 Nonspecific elevation of lev els of transaminase or lactic acid dehydrogenase (LDH) 06/28/2011 documented as of this encounter (statuses as of 07/15/2023) [facility] illness Narrative* Problem Noted Date Diagnosed Date Resolved Date SUPRF HIGH RISK NEC [V23.89] 07/26/2011 11/22/2013 Calculus of gallbladder with out mention of cholecystitis or obstruction 10/02/2007 06/28/2011 Abdominal pain, right upper quadrant 06/28/2011 Nonspecific elevation of lev els of transaminase or lactic acid dehydrogenase (LDH) 06/28/2011 documented as of this encounter (statuses as of 07/29/2023) [facility] illness Narrative* Problem Noted Date Diagnosed Date Resolved Date SUPRF HIGH RISK NEC [V23.89] 07/26/2011 11/22/2013 Calculus of gallbladder with out mention of cholecystitis or obstruction 10/02/2007 06/28/2011 Abdominal pain, right upper quadrant 06/28/2011 Nonspecific elevation of lev els of transaminase or lactic acid dehydrogenase (LDH) 06/28/2011 documented as of this encounter (statuses as of 08/08/2023) [facility] illness Narrative* Problem Noted Date Diagnosed Date Resolved Date SUPRF HIGH RISK NEC [V23.89] 07/26/2011 11/22/2013 Calculus of gallbladder with out mention of cholecystitis or obstruction 10/02/2007 06/28/2011 Abdominal pain, right upper quadrant 06/28/2011 Nonspecific elevation of lev els of transaminase or lactic acid dehydrogenase (LDH) 06/28/2011 documented as of this encounter (statuses as of 09/01/2023) [facility] illness Narrative* Problem Noted Date Diagnosed Date Resolved Date SUPRF HIGH RISK NEC [V23.89] 07/26/2011 11/22/2013 Calculus of gallbladder with out mention of cholecystitis or obstruction 10/02/2007 06/28/2011 Abdominal pain, right upper quadrant 06/28/2011 Nonspecific elevation of lev els of transaminase or lactic acid dehydrogenase (LDH) 06/28/2011 documented as of this encounter (statuses as of 09/02/2023) [facility] Appointment Date:04/21/2023 09:00:00 AM Scheduled Provider:CHRISTOPHER VARGAS MD Location:[facility] Appointment Type:[facility] Diagnostic Tests Pending * Rapid Plasma Reagin Test 10/14/22 Future Scheduled Tests Laboratory* Lipid Profile 02/18/22 * Complete Metabolic Panel 02/18/22 [facility] Evaluation + Plan note Future Appointments Appointment Date:04/21/2023 09:00:00 AM Scheduled Provider:CHRISTOPHER VARGAS MD Location:[facility] Appointment Type:[facility] Future Scheduled Tests Laboratory* Lipid Profile 02/18/22 * Complete Metabolic Panel 02/18/22 [facility] Evaluation + Plan note Future Appointments Appointment Date:11/25/2022 10:00:00 AM Scheduled Provider:CHRISTOPHER VARGAS MD Location:[facility] Appointment Type: OV Appointment Date:04/21/2023 09:00:00 AM Scheduled Provider:CHRISTOPHER VARGAS MD Location:[facility] Appointment Type:[facility] Future Scheduled Tests Laboratory* Lipid Profile 02/18/22 * Complete Metabolic Panel 02/18/22 [facility] evaluation noteNo assessment information available [facility] Work Phone: evaluation note* Diagnosis Screening for diabetes mellitus- Primary Encounter for lipid screening for cardiovascular disease Screening for lipoid disorders Encounter for wellness examination in adult Lumbar radiculopathy Thoracic or lumbosacral neuritis or radiculitis, unspecified Other depression Encounter for screening mammogram for malignant neoplasm of breast Other screening mammogram [facility] Diagnosis Leukocytosis, unspecified type- Primary documented in this encounter [facility] note* Diagnosis Onset Date Resolution Status Herniation of intervertebral disc between L4 and L5 acute Lumbar facet joint pain acut e Exposure to chlamydia acute [facility] Work Phone: evaluihktw note* Diagnosis moderate depression Moderate anxiety documented in this encounter [facility] note* Diagnosis Onset Date Resolution Status Encounter for routine gynecological examination noneactive [facility] Work Phone: Evaluation note* Diagnosis Lumbar radiculopathy- Primary Thoracic or lumbosacral neuritis or radiculitis, unspecified Chronic midline low back pain without sciatica Encounter for smoking cessation counseling Counseling on substance use and abuse [facility] Diagnosis Lumbar radiculopathy Thoracic or lumbosacral neuritis or radiculitis, unspecified [facility]* Diagnosis Onset Date Resolution Status Encounter for routine gynecological examination noneactive Menorrhagia acute Menorrhagia acute [facility] Work Phone: Evaluation note* Diagnosis Chronic low back pain without sciatica, unspecified back pain laterality- Primary Radiculopathy of lumbar region Thoracic or lumbosacral neuritis or radiculitis, unspecified Urinary and bowel incontinence Unspecified urinary incontinence documented in this encounter [facility] note* Diagnosis Chronic low back pain without sciatica, unspecified back pain laterality Radiculopathy of lumbar region Thoracic or lumbosacral neuritis or radiculitis, unspecified Urinary and bowel incontinence Unspecified urinary incontinence [facility]* Diagnosis Encounter for screening mammogram for breast cancer [facility]* Diagnosis Hemisensory deficit- Primary Other symptoms involving nervous and musculoskeletal systems Hyperreflexia Abnormal reflex Balance disorder Other symptoms involving nervous and musculoskeletal systems Spinal stenosis of cervical region Spinal stenosis in cervical region Midline thoracic back pain, unspecified chronicity [facility]* Diagnosis Hemisensory deficit Other symptoms involving nervous and musculoskeletal systems Hyperreflexia Abnormal reflex Balance disorder Other symptoms involving nervous and musculoskeletal systems [facility] Diagnosis Hemisensory deficit Other symptoms involving nervous and musculoskeletal systems Hyperreflexia Abnormal reflex Balance disorder Other symptoms involving nervous and musculoskeletal systems Spinal stenosis of cervical region Spinal stenosis in cervical region Midline thoracic back pain, unspecified chronicity [facility]* Diagnosis Incontinence of feces, unspecified fecal incontinence type- Primary Acute pulmonary embolism, unspecified pulmonary embolism type, unspecified whether acute cor pulmonale present (HCC) [facility]* Diagnosis Lumbar radiculopathy Thoracic or lumbosacral neuritis or radiculitis, unspecified [facility]* Diagnosis Lupus anticoagulant positive- Primary Other and unspecified nonspecific immunological findings [facility]* Diagnosis Lumbar radiculopathy Thoracic or lumbosacral neuritis or radiculitis, unspecified [facility]* Diagnosis Night sweats Generalized hyperhidrosis Acute pain of left knee documented [facility]* Diagnosis Lupus anticoagulant positive- Primary Other and unspecified nonspecific immunological findings Acute pulmonary embolism, unspecified pulmonary embolism type, unspecified whether acute cor pulmonale present (HCC) [facility]* Diagnosis Rash- Primary Rash and other nonspecific skin eruption [facility]* Diagnosis Acute pulmonary embolism, unspecified pulmonary embolism type, unspecified whether acute cor pulmonale present (HCC)- Primary Lupus anticoagulant positive Other and unspecified nonspecific immunological findings Encounter for screening mammogram for breast cancer Special screening examination for viral disease Special screening examination for unspecified viral disease [facility]* Diagnosis Cellulitis of skin- Primary Cellulitis and abscess of unspecified site [facility]* Diagnosis Generalized skin cysts- Primary Sebaceous cyst [facility] Narrative No data available for this section [facility] Discharge instructions Additional Instructions Once the foam falls off on its own you can cover the healing area with Vaseline and a bandage. Please follow-up with occupational health. If bleeding reoccurs hold direct pressure for 15 minutes without letting go.[facility] Work Phone: Hospital Discharge instructions No data available for this section [facility] Hospital Discharge instructions Additional Instructions Implant Used?: [facility] Work Phone: Hospital Discharge instructionsAdditional Instructions Thank you for trusting us with your care today! Your labs images are reassuring. Specifically no sign of blood clots noted on your CT scan Please take Tylenol (2 pills, 650 mg), ibuprofen (2 pills, 400 mg) every 6 hours as needed for pain and fever control. Please return to the emergency department if your symptoms change or worsen. Please follow with your primary care physician for further outpatient evaluation and management.[facility] Work Phone: Progress note No data available for this section [facility] Reason for referral (narrative)* Diagnostic Procedure Only (Routine) - Authorized Specialty Diagnoses / Procedures Referred By Contac t Referred To Contact BR IM[facility] Diagnoses Encounter for screening mammogram for malignant neoplasm of breast Procedures HENRI SCREENING SCREENING MAMMOGRAPHY BI 2-VIEW BREAST INC CAD Nguyen Kurtz APRN.CNP [address] [place] [address] [facility] [address] [facility] [place] [address] Referral ID Status Reason Start Date Expiration Date Visits Requested Visits Authorized [id number] Authorized Auto-Generat ed Referral 09/13/2022 10/13/2023 1 1 * Transition of Care (Routine) - Ref Not Required Specialty Diagnoses / Procedures Referred By Contveronica t Referred To Contact Orthopedics Diagnoses Lumbar radiculopathy Procedures CONSULT PANEL TO ORTHOPAEDICS Nguyen Kurtz APRN.CNP [address] [place] [address] Doug Gutierrez [address] [address] Referral ID Status Reason Start Date Expiration Date Visits Requested Visits Authorized [id number] Ref Not Required PCP Requested Referral 09/13/2022 09/13/2023 1 1 [facility] for referral (narrative)* Diagnostic Procedure Only (Routine) - Pending Review Specialty Diagnoses / Procedures Referred By Contac t Referred To Contact BR IMAGING Diagnoses Encounter for screening mammogram for breast cancer Procedures HENRI SCREENING SCREENING MAMMOGRAPHY BI 2-VIEW BREAST INC CAD Nguyen Kurtz APRN.POLITICAL DIRECTOR [address] [place] [address] [facility] [address] [place] [address] Referral ID Status Reason Start Date Expiration Date Visits Requested Visits Authorized [id number] Pending Review Auto-Generat ed Referral 10/19/2023 11/17/2024 1 1 [facility] for referral (narrative)* Outpatient Procedure (Urgent) - New Request Specialty Diagnoses / Procedures Referred By Contac t Referred To Contact [facility] Diagnoses Acute pulmonary embolism, unspecified pulmonary embolism type, unspecified whether acute cor pulmonale present (HCC) Procedures US LEG VEIN DVT UNL VAS LAB DUP-SCAN XTR VEINS UNILATERAL/LIMITED STUDY Nguyen Kurtz APRN.POLITICAL DIRECTOR [address] [place] [phone] [facility] [place] [address] [place] [address] Referral ID Status Reason Start Date Expiration Date Visits Requested Visits Authorized [id number] New Request Auto-Generat ed Referral 01/19/2024 01/18/2025 1 1 * Consult, Test, Treat (Routine) - Authorized Specialty Diagnoses / Procedures Referred By Contac t Referred To Contact Gastroenterology Diagnoses Incontinence of feces, unspecified fecal incontinence type Procedures CONSULT TO GASTROENTEROLOGY OFFICE/OUTPATIENT NEW HIGH MDM 60 MINUTES Nguyen Kurtz APRN.POLITICAL DIRECTOR [address] [place] [address] Referral ID Status Reason Start Date Expiration Date Visits Requested Visits Authorized [id number] Authorized PCP Requested Referral 01/19/2024 01/18/2025 1 1 [facility] for referral (narrative)* Diagnostic Procedure Only (Routine) - Closed Specialty Diagnoses / Procedures Referred By Contac t Referred To Contact XR IMAGING Diagnoses Lumbar radiculopathy Procedures XR LUMBAR MOTION 4V AP/LAT/ FLEX/EXT RADEX SPINE LUMBOSACRAL MINIMUM 4 VIEWS Nguyen Kurtz APRN.CNP [address] [place] [address] [place] [address] Referral ID Status Reason Start Date Expiration Date V isits Requested Visits Authorized [id number] Closed Auto-Generate d Referral 06/20/2023 07/19/2024 1 1 [facility] for referral (narrative)* Diagnostic Procedure Only (Routine) - Closed Specialty Diagnoses / Procedures Referred By Contac t Referred To Contact XR IMAGING Diagnoses Acute pain of left knee Procedures XR KNEE GENERAL 4V AP BOTH/PA BOTH/LAT/MERC LEFT RADIOLOGIC EXAM KNEE COMPLETE 4/MORE VIEWS Nguyen Kurtz APRN.CNP [address] [place] [id number] [place] [address] Referral ID Status Reason Start Date Expiration Date V isits Requested Visits Authorized [id number] Closed Auto-Generate d Referral 01/24/2023 02/23/2024 1 1 [facility] for referral (narrative)No reason for [facility] Narrative* Diagnostic Procedure Only (Routine) - Closed Specialty Diagnoses / Procedures Referred By Contac t Referred To Contact XR IMAGING Diagnoses Lumbar radiculopathy Procedures XR LUMBAR MOTION 4V AP/LAT/ FLEX/EXT RADEX SPINE LUMBOSACRAL MINIMUM 4 VIEWS Nguyen Kurtz APRN.POLITICAL DIRECTOR [address] [place] [address] [place] [address] Referral ID Status Reason Start Date Expiration Date V isits Requested Visits Authorized [id number] Closed Auto-Generate d Referral 06/20/2023 07/19/2024 1 1 [facility] for visit Narrative* Diagnostic Procedure Only (Routine) - Closed Specialty Diagnoses / Procedures Referred By Contac t Referred To Contact XR IMAGING Diagnoses Acute pain of left knee Procedures XR KNEE GENERAL 4V AP BOTH/PA BOTH/LAT/MERC LEFT RADIOLOGIC EXAM KNEE COMPLETE 4/MORE VIEWS Nguyen Kurtz, LUCERO.POLITICAL DIRECTOR [address] [place] [address] [place] [address] Referral ID Status Reason Start Date Expiration Date V isits Requested Visits Authorized [id number] Closed Auto-Generate d Referral 01/24/2023 02/23/2024 1 1 [facility] Chief Complaint and Reason for Visit Chief Complaint lac Chief Complaint LUMBAR SPINE RM 5 VAG BLEED STD CONCERN Reason for Visit Herniation of interv ertebral disc between L4 and L5 Lumbar facet joint pain Exposure to chlamydia Chief Complaint Annual (HEEL BREASTER) ANNUAL PAP Reason for Visit Encounter for routin e gynecological examination Chief Complaint Annual (HEEL BREASTER) ANNUAL PAP ABNORMAL UTERINE BLEEDING Reason for Visit Encounter for routin e gynecological examination Chief Complaint Annual (HEEL BREASTER) ANNUAL PAP ABNORMAL UTERINE BLEEDING 2 W FU EMB OK PRE JV Reason for Visit Encounter for routin e gynecological examination Menorrhagia Menorrhagia Chief Complaint Annual (HEEL BREASTER) ANNUAL PAP ABNORMAL UTERINE BLEEDING 2 W FU EMB OK PRE JV Hysteroscopy,D&C Angelika Reason for Visit Encounter for routin e gynecological examination Menorrhagia Menorrhagia Chief Complaint Admit Date Hormone Replacement thearpy October 02 3:19pm Chief Complaint Admit Date Hormone Replacement thearpy October 02 3:19pm CHEST SQUEEZING December 05, 2024 8:37 pm Reason for Visit Admit Date H/O dilation and curettage October 02 3:19pm Herniation of intervertebral disc betwee n L4 and L5 October 02, 2024 3:19pm Hot flashes October 02, 2024 3:19p m Irritable bowel syndrome affecting pregn bobby October 02, 2024 3:19pm Lower back pain October 02, 2024 3:19p m Lumbar facet joint pain October 02, 2024 3 :19pm Lupus October 02, 2024 3:19p m Menorrhagia October 02, 2024 3:19p m Neuropathy October 02, 2024 3:19p m Scoliosis October 02, 2024 3:19p m Chief Complaint Admit Date Hormone Replacement thearpOctober 02 3:19pm CHEST SQUEEZING December 05, 2024 8:37 pm Medication Discussion January 08, 2025 10:14am Reason for Visit Admit Date H/O dilation and curettage October 02 3:19pm Herniation of intervertebral disc betwee n L4 and L5 October 02, 2024 3:19pm Hot flashes October 02, 2024 3:19p m Irritable bowel syndrome affecting pregn bobby October 02, 2024 3:19pm Lower back pain October 02, 2024 3:19p m Lumbar facet joint pain October 02, 2024 3 :19pm Lupus October 02, 2024 3:19p m Menorrhagia October 02, 2024 3:19p m Neuropathy October 02, 2024 3:19p m Scoliosis October 02, 2024 3:19p m Climacteric January 08, 2025 10 :14am Advance Directives No Advanced Directives Records Found Advance Directive Response Recorded Date/ Time Living Will No May 02 4:09pm Power of Shooter Helper No May 02, 2022 4:09pm Advance Directive Response Recorded Date/ Time Living Will No September 29, 2022 1 0:27am Power of Shooter Helper No September 29, 2022 10:27am Advance Directive Response Recorded Date/ Time Living Will No September 29, 2022 9 :27am Power of Shooter Helper No September 29, 2022 9:27am Advance Directive Response Recorded Date/ Time Living Will No July 07 024 9:12am Power of Shooter Helper No July 07, 2023 9:12am Advance Directive Response Recorded Date/ Time Living Will No July 07 10:12am Power of Shooter Helper No July 07, 2023 10:12am Advance Directive Response Recorded Date/ Time Do you have a [facility] Power of Shooter Helper? No December 05, 2024 8:45pm Summary Purpose Family History No Family History [...] positive Procedures CONSULT TO RHEUM/IMMUN DISEASE OFFICE/OUTPATIENT [facility] 60 MINUTES Nguyen Kurtz APRN.POLITICAL DIRECTOR [address] [place] [address] Referral ID Status Reason Start Date Expiration Date Visits Requested Visits Authorized [id number] Authorized PCP Requested Referral 01/26/2024 01/25/2025 1 1 Specialty Diagnoses / Procedures Referred By Contac t Referred To Contact MR IMAGING Diagnoses Hemisensory deficit Hyperreflexia Balance disorder Procedures MRI BRAIN WO IVCON MRI BRAIN BRAIN STEM W/O CONTRAST MATERIAL George [place], [address] [place] [id number] Mr Imaging [id number] Referral ID Status Reason Start Date Expiration Date Visits Requested Visits Authorized [id number] Pending Review Auto-Generat ed Referral 11/18/2023 12/17/2024 1 1 Specialty Diagnoses / Procedures Referred By Contac t Referred To Contact MR IMAGING Diagnoses Hemisensory deficit Hyperreflexia Balance disorder Midline thoracic back pain, unspecified chronicity Procedures MRI THORACIC SPINE WO IVCON MRI SPINAL CANAL THORACIC W/[place] [address] [place] [id number] Mr Imaging [id number] Referral ID Status Reason Start Date Expiration Date Visits Requested Visits Authorized [id number] Pending Review Auto-Generat ed Referral 11/18/2023 12/17/2024 1 1 Specialty Diagnoses / Procedures Referred By Contac t Referred To Contact MR IMAGING Diagnoses Hemisensory deficit Hyperreflexia Balance disorder Spinal stenosis of cervical region Procedures MRI CERVICAL SPINE WO IVCON MRI SPINAL CANAL CERVICAL W/[place] [address] [place] [id number] Mr Imaging [id number] Referral ID Status Reason Start Date Expiration Date Visits Requested Visits Authorized [id number] Pending Review Auto-Generat ed Referral 11/18/2023 12/17/2024 1 1 Specialty Diagnoses / Procedures Referred By Contac t Referred To Contact [facility] Diagnoses Urinary and bowel incontinence Procedures CONSULT TO PHYSICAL THERAPY PHYSICAL THERAPY EVALUATION HIGH COMPLEX 45 MINS Nguyen Kurtz APRN.POLITICAL DIRECTOR [address] [place] [address] [facility] [place] [address] [place] [address] Referral ID Status Reason Start Date Expiration Date Visits Requested Visits Authorized [id number] Authorized Auto-Generat ed Referral 05/16/2023 05/15/2024 1 1 Specialty Diagnoses / Procedures Referred By Contac t Referred To Contact MR IMAGING Diagnoses Chronic low back pain without sciatica, unspecified back pain laterality Radiculopathy of lumbar region Urinary and bowel incontinence Procedures MRI LUMBAR SPINE WO/W IVCON MRI SPINAL CANAL LUMBAR W/O & W/CONTR MATRL Nguyen Kurtz APRN.POLITICAL DIRECTOR [address] [place] [address] [place] [address] Referral ID Status Reason Start Date Expiration Date Visits Requested Visits Authorized [id number] Pending Review Auto-Generat ed Referral 07/29/2023 08/27/2024 1 1 Specialty Diagnoses / Procedures Referred By Contac t Referred To Contact Orthopedics Diagnoses Lumbar radiculopathy Chronic midline low back pain without sciatica Procedures CONSULT TO ORTHOPAEDICS Nguyen Kurtz APRN.POLITICAL DIRECTOR [address] [place] [address] Doug Gutierrez [address] [place], [place] [address] [address] [address] Referral ID Status Reason Start Date Expiration Date Visits Requested Visits Authorized [id number] Ref Not Required PCP Requested Referral 06/20/2023 06/19/2024 1 1 Specialty Diagnoses / Procedures Referred By Contac t Referred To Contact XR IMAGING Diagnoses Lumbar radiculopathy Procedures XR LUMBAR MOTION 4V AP/LAT/ FLEX/EXT RADEX SPINE LUMBOSACRAL MINIMUM 4 VIEWS Nguyen Kurtz APRN.POLITICAL DIRECTOR [facility] [place] [address] [place] [address] Referral ID Status Reason Start Date Expiration Date V isits Requested Visits Authorized [id number] Closed Auto-Generate d Referral 06/20/2023 07/19/2024 1 [...] or prosecute any alcohol or drug abuse patient.[facility] the event this information is protected by the Federal Confidentiality of Alcohol and Drug Abuse Patient Records regulations: The Federal rules restrict any use of the information to criminally investigate or prosecute any alcohol or drug abuse patient.[facility] the event this information is protected by the Federal Confidentiality of Alcohol and Drug Abuse Patient Records regulations: The Federal rules restrict any use of the information to criminally investigate or prosecute any alcohol or drug abuse patient.[facility] the event this information is protected by the Federal Confidentiality of Alcohol and Drug Abuse Patient Records regulations: The Federal rules restrict any use of the information to criminally investigate or prosecute any alcohol or drug abuse patient.[facility] the event this information is protected by the Federal Confidentiality of Alcohol and Drug Abuse Patient Records regulations: The Federal rules restrict any use of the information to criminally investigate or prosecute any alcohol or drug abuse patient.[facility] the event this information is protected by the Federal Confidentiality of Alcohol and Drug Abuse Patient Records regulations: The Federal rules restrict any use of the information to criminally investigate or prosecute any alcohol or drug abuse patient.[facility] the event this information is protected by the Federal Confidentiality of Alcohol and Drug Abuse Patient Records regulations: The Federal rules restrict any use of the information to criminally investigate or prosecute any alcohol or drug abuse patient.[facility] the event this information is protected by the Federal Confidentiality of Alcohol and Drug Abuse Patient Records regulations: The Federal rules restrict any use of the information to criminally investigate or prosecute any alcohol or drug abuse patient.[facility] the event this information is protected by the Federal Confidentiality of Alcohol and Drug Abuse Patient Records regulations: The Federal rules restrict any use of the information to criminally investigate or prosecute any alcohol or drug abuse patient.[facility] the event this information is protected by the Federal Confidentiality of Alcohol and Drug Abuse Patient Records regulations: The Federal rules restrict any use of the information to criminally investigate or prosecute any alcohol or drug abuse patient.[facility] the event this information is protected by the Federal Confidentiality of Alcohol and Drug Abuse Patient Records regulations: The Federal rules restrict any use of the information to criminally investigate or prosecute any alcohol or drug abuse patient.[facility] System[facility] the event this information is protected by the Federal Confidentiality of Alcohol and Drug Abuse Patient Records regulations: The Federal rules restrict any use of the information to criminally investigate or prosecute any alcohol or drug abuse patient.[facility] System[facility] the event this information is protected by the Federal Confidentiality of Alcohol and Drug Abuse Patient Records regulations: The Federal rules restrict any use of the information to criminally investigate or prosecute any alcohol or drug abuse patient.[facility] System[facility] the event this information is protected by the Federal Confidentiality of Alcohol and Drug Abuse Patient Records regulations: The Federal rules restrict any use of the information to criminally investigate or prosecute any alcohol or drug abuse patient.[facility] System[facility] the event this information is protected by the Federal Confidentiality of Alcohol and Drug Abuse Patient Records regulations: The Federal rules restrict any use of the information to criminally investigate or prosecute any alcohol or drug abuse patient.[facility] SystemIn the event this information is protected by the Federal Confidentiality of Alcohol and Drug Abuse Patient Records regulations: The Federal rules restrict any use of the information to criminally investigate or prosecute any alcohol or drug abuse patient.[facility] SystemIn the event this information is protected by the Federal Confidentiality of Alcohol and Drug Abuse Patient Records regulations: The Federal rules restrict any use of the information to criminally investigate or prosecute any alcohol or drug abuse patient.[facility] SystemIn the event this information is protected by the Federal Confidentiality of Alcohol and Drug Abuse Patient Records regulations: The Federal rules restrict any use of the information to criminally investigate or prosecute any alcohol or drug abuse patient.[facility] SystemIn the event this information is protected by the Federal Confidentiality of Alcohol and Drug Abuse Patient Records regulations: The Federal rules restrict any use of the information to criminally investigate or prosecute any alcohol or drug abuse patient.[facility] SystemIn the event this information is protected by the Federal Confidentiality of Alcohol and Drug Abuse Patient Records regulations: The Federal rules restrict any use of the information to criminally investigate or prosecute any alcohol or drug abuse patient.[facility] SystemIn the event this information is protected by the Federal Confidentiality of Alcohol and Drug Abuse Patient Records regulations: The Federal rules restrict any use of the information to criminally investigate or prosecute any alcohol or drug abuse patient.[facility] SystemIn the event this information is protected by the Federal Confidentiality of Alcohol and Drug Abuse Patient Records regulations: The Federal rules restrict any use of the information to criminally investigate or prosecute any alcohol or drug abuse patient.[facility] SystemIn the event this information is protected by the Federal Confidentiality of Alcohol and Drug Abuse Patient Records regulations: The Federal rules restrict any use of the information to criminally investigate or prosecute any alcohol or drug abuse patient.[facility] SystemIn the event this information is protected by the Federal Confidentiality of Alcohol and Drug Abuse Patient Records regulations: The Federal rules restrict any use of the information to criminally investigate or prosecute any alcohol or drug abuse patient.[facility] SystemIn the event this information is protected by the Federal Confidentiality of Alcohol and Drug Abuse Patient Records regulations: The Federal rules restrict any use of the information to criminally investigate or prosecute any alcohol or drug abuse patient.[facility] SystemIn the event this information is protected by the Federal Confidentiality of Alcohol and Drug Abuse Patient Records regulations: The Federal rules restrict any use of the information to criminally investigate or prosecute any alcohol or drug abuse patient.[facility] SystemIn the event this information is protected by the Federal Confidentiality of Alcohol and Drug Abuse Patient Records regulations: The Federal rules restrict any use of the information to criminally investigate or prosecute any alcohol or drug abuse patient.[facility] SystemIn the event this information is protected by the Federal Confidentiality of Alcohol and Drug Abuse Patient Records regulations: The Federal rules restrict any use of the information to criminally investigate or prosecute any alcohol or drug abuse patient.[facility] SystemIn the event this information is protected by the Federal Confidentiality of Alcohol and Drug Abuse Patient Records regulations: The Federal rules restrict any use of the information to criminally investigate or prosecute any alcohol or drug abuse patient.[facility] SystemIn the event this information is protected by the Federal Confidentiality of Alcohol and Drug Abuse Patient Records regulations: The Federal rules restrict any use of the information to criminally investigate or prosecute any alcohol or drug abuse patient.[facility] Reason for Visit (unrecogniz ed section and [...] CANAL LUMBAR W/O & W/CONTR MATRL Nguyen Kurtz, PRODUCTION FLOATER.[place] [address] [place] [id number] Referral ID Status Reason Start Date Expiration Date V isits Requested Visits Authorized [id number] Closed Auto-Generate d Referral 08/18/2023 10/17/2023 1 1 Reason Comments New Patient Evaluation Discuss mri on . Patient states no pain. Results - Mri Specialty Diagnoses / Procedures Referred By Contac t Referred To Contact [facility] [place] Diagnoses Lumbar radiculopathy Procedures CONSULT TO [facility] OFFICE/OUTPATIENT [facility] 60 MINUTES Nguyen Kurtz, PRODUCTION FLOATER.POLITICAL DIRECTOR [address] [place] [address] Referral ID Status Reason Start Date Expiration Date V isits Requested Visits Authorized [id number] Closed PCP Requested Referral 06/20/2023 06/19/2024 1 1 Specialty Diagnoses / Procedures Referred By Contac t Referred To Contact MR IMAGING Diagnoses Hemisensory deficit Hyperreflexia Balance disorder Procedures MRI BRAIN WO IVCON MRI BRAIN BRAIN STEM W/O CONTRAST MATERIAL George Hollis, [address] [place] [id number] Mr Imaging [id number] Referral ID Status Reason Start Date Expiration Date V isits Requested Visits Authorized [id number] Closed Auto-Generate d Referral 12/09/2023 02/07/2024 1 1 Specialty Diagnoses / Procedures Referred By Contac t Referred To Contact MR IMAGING Diagnoses Hemisensory deficit Hyperreflexia Balance disorder Spinal stenosis of cervical region Procedures MRI CERVICAL SPINE WO IVCON MRI SPINAL CANAL CERVICAL W/[place] [address] [place] [address] Mr Imaging [id number] Referral ID Status Reason Start Date Expiration Date V isits Requested Visits Authorized [id number] Closed Auto-Generate d Referral 12/09/2023 02/07/2024 1 1 Reason Onset Date Comments Refill Request 03/07/2023 Reason Comments Diarrhea X 1 week ER F/U Pulmonary embolism Reason Comments Results Reason Onset Date Comments Refill Request 01/27/2024 Reason Comments Consult Specialty Diagnoses / Procedures Referred By Contac t Referred To Contact Rheumatology Diagnoses Lupus anticoagulant positive Procedures CONSULT TO RHEUM/IMMUN DISEASE OFFICE/OUTPATIENT [facility] 60 MINUTES Nguyen Kurtz APRN.POLITICAL DIRECTOR [address] [place] [address] Referral ID Status Reason Start Date Expiration Date V isits Requested Visits Authorized [id number] Closed PCP Requested Referral 01/26/2024 01/25/2025 1 1 Reason Comments Rash right side abdominal area x 4 days, burning and itching Reason Comments Follow Up Reason Comments Follow Up Red bumps on right e lbow X 1 month Care Teams (unrecognized sec tion and content) Park Worker Relationship Specialty Start Date End Date Nguyen Kurtz, LUCERO.POLITICAL DIRECTOR [address] [place], [place] [phone] PCP - General Family Medicine 09/13/22 Park Worker Relationship Specialty Start Date End Date Nguyen Kurtz APRN.POLITICAL DIRECTOR [address] [place], [place] [phone] PCP - General Family Medicine 09/13/22 Park Worker Relationship Specialty Start Date End Date Nguyen Kurtz, PRODUCTION FLOATER.POLITICAL DIRECTOR [address] [place] [address] PCP - General Family Medicine 09/13/22 Park Worker Relationship Specialty Start Date End Date DungNguyen skelton, PRODUCTION FLOATER.POLITICAL DIRECTOR [address] [place] [address] [id number] PCP - General Family Medicine 09/13/22 Team [...] Tello MD Attending Provider, Emergency Provider Active Tessie Burton NP Primary Care Provider Active Park Worker Relationship Specialty Start Date End Date Nguyen Kurtz, PRODUCTION FLOATER.POLITICAL DIRECTOR [address] [place], [place] [phone] PCP - General Family Medicine 09/13/22 Team Status: Active Member Role Status Dates Dr. Dale Whitlock , Family Provider Active Nguyen Kurtz , TRAINING ADMINISTRATOR-C Primary Care Provider Active Team Status: Inactive Member Role Status Dates Dr. Tati Alvarez , DO Attending Provider Activ e Team Status: Inactive Member Role Status Dates Dr. Tati Alvarez , DO Attending Provider, Refe rring Provider Active Park Worker Relationship Specialty Start Date End Date Nguyen Kurtz, PRODUCTION FLOATER.POLITICAL DIRECTOR [address] [place] [address] [phone] PCP - General Family Medicine 09/13/22 Team Status: Inactive Member Role Status Dates Dr. Tati Alvarez , DO Attending Provider, Refe rring Provider Active Nguyen Kurtz , TRAINING ADMINISTRATOR-C Primary Care Provider Active Park Worker Relationship Specialty Start Date End Date Nguyen Kurtz, PRODUCTION FLOATER.POLITICAL DIRECTOR [address] [place] [phone] PCP - General Family Medicine 09/13/22 Team Status: Inactive Member Role Status Dates Dr. Tati Alvarez , DO Attending Provider Activ e Nguyen Kurtz , TRAINING ADMINISTRATOR-C Primary Care Provider, Referrin g Provider Active Team Status: Inactive Member Role Status Dates Nguyen Kurtz , TRAINING ADMINISTRATOR-C Primary Care Provider, Referrin g Provider Active Dr. Tati Alvarez , DO Attending Provider Activ e Team Status: Inactive Member Role Status Dates Nguyen Kurtz , TRAINING ADMINISTRATOR-C Primary Care Provider Active Dr. Tati Alvarez , DO Attending Provider Activ e Team Status: Inactive Member Role Status Dates Nguyen Kurtz , TRAINING ADMINISTRATOR-C Primary Care Provider Active Dr. Tati Alvarez , DO Attending Provider, Refe rring Provider Active Park Worker Relationship Specialty Start Date End Date Nguyen Kurtz, PRODUCTION FLOATER.POLITICAL DIRECTOR [address] [place] [phone] PCP - General Family Medicine 09/13/22 Park Worker Relationship Specialty Start Date End Date Nguyen Kurtz, PRODUCTION FLOATER.POLITICAL DIRECTOR [address] [place] [address] [phone] PCP - General Family Medicine 09/13/22 Park Worker Relationship Specialty Start Date End Date Nguyen Kurtz, PRODUCTION FLOATER.POLITICAL DIRECTOR [address] [place] [address] [phone] PCP - General Family Medicine 09/13/22 Park Worker Relationship Specialty Start Date End Date Nguyen Kurtz, PRODUCTION FLOATER.POLITICAL DIRECTOR [address] [place] [address] [phone] PCP - General Family Medicine 09/13/22 Park Worker Relationship Specialty Start Date End Date Nguyen Kurtz APRN.POLITICAL DIRECTOR [address] [place] [phone] PCP - General Family Medicine 09/13/22 Park Worker Relationship Specialty Start Date End Date Nguyen Kurtz APRN.POLITICAL DIRECTOR [address] [place] [address] [phone] PCP - General Family Medicine 09/13/22 Park Worker Relationship Specialty Start Date End Date Nguyen Kurtz APRN.POLITICAL DIRECTOR [address] [place] [phone] PCP - General Family Medicine 09/13/22 Park Worker Relationship Specialty Start Date End Date Nguyen Kurtz APRN.POLITICAL DIRECTOR [address] [place] [id number] PCP - General Family Medicine 09/13/22 Park Worker Relationship Specialty Start Date End Date Nguyen Kurtz APRN.POLITICAL DIRECTOR [address] [place] [address] [phone] PCP - General Family Medicine 09/13/22 Park Worker Relationship Specialty Start Date End Date Nguyen Kurtz APRN.POLITICAL DIRECTOR [address] [place] [address] [id number] PCP - General Family Medicine 09/13/22 Park Worker Relationship Specialty Start Date End Date Nguyen Kurtz APRN.POLITICAL DIRECTOR [address] [place] [address] [phone] PCP - General Family Medicine 09/13/22 Park Worker Relationship Specialty Start Date End Date Nguyen Kurtz APRN.POLITICAL DIRECTOR [address] [place] [address] [phone] PCP - General Family Medicine 09/13/22 Park Worker Relationship Specialty Start Date End Date Nguyen Kurtz PRODUCTION FLOATER.POLITICAL DIRECTOR [address] [place] [address] [id number] PCP - General Family Medicine 09/13/22 Park Worker Relationship Specialty Start Date End Date Nguyen Kurtz PRODUCTION FLOATER.POLITICAL DIRECTOR [address] [place] [phone] PCP - General Family Medicine 09/13/22 Park Worker Relationship Specialty Start Date End Date Nguyen Kurtz PRODUCTION FLOATER.POLITICAL DIRECTOR [address] [place] [address] [phone] PCP - General Family Medicine 09/13/22 Park Worker Relationship Specialty Start Date End Date Nguyen Kurtz, PRODUCTION FLOATER.POLITICAL DIRECTOR [address] [place] [address] [phone] PCP - General Family Medicine 09/13/22 Park Worker Relationship Specialty Start Date End Date Nguyen Kurtz, PRODUCTION FLOATER.POLITICAL DIRECTOR [address] [place] [address] [phone] PCP - General Family Medicine 09/13/22 Park Worker Relationship Specialty Start Date End Date Nguyen Kurtz, PRODUCTION FLOATER.POLITICAL DIRECTOR [address] [place] [address] [phone] PCP - General Family Medicine 09/13/22 Park Worker Relationship Specialty Start Date End Date Nguyen Kurtz, PRODUCTION FLOATER.POLITICAL DIRECTOR [address] [place] [address] [phone] PCP - General Family Medicine 09/13/22 Team Status: Inactive Member Role Status Dates Nguyen Kurtz , TRAINING ADMINISTRATOR-C Primary Care Provider Active Start: October 02, 2024 End: October 02, 2024 Nguyen Kurtz TRAINING ADMINISTRATOR-C Referring Provider Active Start: October 02, 2024 End: October 02, 2024 Dr. Tati Alvarez , DO Attending Provider Activ e Start: October 02, 2024 End: October 02, 2024 Team Status: Active Member Role/Relationship Status Dates Nguyen Kurtz , TRAINING ADMINISTRATOR-C Primary Care Provider Active Team Status: Inactive Member Role/Relationship Status Dates Nguyen Kurtz TRAINING ADMINISTRATOR-C Primary Care Provider Active Start: October 02, 2024 End: October 02, 2024 Nguyen Kurtz TRAINING ADMINISTRATOR-C Referring Provider Active Start: October 02, 2024 End: October 02, 2024 Dr. Tati Alvarez , DO Attending Provider Activ e Start: October 02, 2024 End: October 02, 2024 Team Status: Inactive Member Role/Relationship Status Dates Nguyen Kurtz TRAINING ADMINISTRATOR-C Primary Care Provider Active Start: December 05, 2024 End: December 05, 2024 Dr. Armando Weems DO Referring Provider Active Start: December 05, 2024 End: December 05, 2024 Dr. Armando Weems DO Emergency Provider Active Start: December 05, 2024 End: December 05, 2024 Team Status: Inactive Member Role/Relationship Status Dates Nguyen Kurtz TRAINING ADMINISTRATOR-C Primary Care Provider Active Start: December 05, 2024 End: December 05, 2024 Dr. Armando Weems DO Attending Provider Active Start: December 05, 2024 End: December 05, 2024 Dr. Armando Weems DO Referring Provider Active Start: December 05, 2024 End: December 05, 2024 Dr. Armando Weems DO Emergency Provider Active Start: December 05, 2024 End: December 05, 2024 Team Status: Inactive Member Role/Relationship Status Dates Nguyen Kurtz , TRAINING ADMINISTRATOR-C Primary Care Provider Active Start: January 08, 2025 End: January 08, 2025 Nguyen Kurtz TRAINING ADMINISTRATOR-C Referring Provider Active Start: January 08, 2025 End: January 08, 2025 Orly Floyd NP, TRAINING ADMINISTRATOR-C Attending Provider Active Start: January 08, 2025 End: January 08, 2025 Team Status: Active Member Role/Relationship Status Dates Nguyen Kurtz NP-Mac Primary Care Provider Active Start: January 08, 2025 Orly Floyd NP, TRAINING ADMINISTRATOR-C Attending Provider Active Start: January 08, 2025 Team Status: Inactive Member Role/Relationship Status Dates Nguyen Kurtz NP-Mac Primary Care Provider Active Start: January 08, 2025 End: January 08, 2025 Orly Floyd NP, TRAINING ADMINISTRATOR-C Attending Provider Active Start: January 08, 2025 End: January 08, 2025 INFORMATION SOURCE (unrecogn ized section and content) DATE CREATED AUTHOR 10/24/2022 [facility] ([place]) DATE CREATED AUTHOR AUTHOR'S ORGANIZ ATION 09/23/2024 [facility] DATE CREATED AUTHOR AUTHOR'S ORGANIZ ATION 01/18/2025 [facility] FOR RECORDS PERTAINING TO PATIENTS [...] BE BASED ON THE PRIMARY CLINICAL RECORDS. [facility] [employer] [facility]. provides no warranty or guarantee of the accuracy or completeness of information in this document.
[2025-01-26 09:03] LABS: D-Dimer Quantitative (DVT/PE) 1.55 FEU/ug/m (0.27-0.49)
--- NOTE | 2025-01-26 09:08 | CT_ITS ---
PROCEDURE: CTA CHEST W/WO CONTRAST 01/26/2025 REASON FOR EXAM: SOB, HX OF PE, ELEVATED DIMER TECHNIQUE: Procedure Code: [id number] Modality: CT Procedure: CTA CHEST W/WO CONTRAST Multiplanar Sagittal and Coronal images were obtained. 3D post processing was performed CONTRAST: Isovue 370 VOLUME: 100 mL One or more dose reduction techniques were used (e.g., Automated exposure control, adjustment of the mA and/or kV according to patient size, use of iterative reconstruction technique). RADIATION DOSE SUMMARY: CTDlvol: 60 mGy DLP: 445 mGycm COMPARISON: November 2024 # of known CTs in the past 12 months: 1 # of known Cardiac Nuclear Medicine Studies in the past 12 months: 0 FINDINGS: Thyroid gland: Negative. Lungs: Moderate emphysematous changes. Mild dependent atelectasis. No pulmonary nodules or masses Pleura: Negative for pleural effusion or pneumothorax. Airways: Imaged bronchi and trachea scratchnegative. Mediastinum: Negative for mediastinal mass. Lymph nodes: Negative for axillary, mediastinal or hilar adenopathy. Heart and Vasculature: Pulmonary arteries well opacify with contrast. Negative for intraluminal thrombus. Heart normal size. Negative for vascular calcifications of the thoracic aorta. Coronary Artery Calcifications: Negative for vascular calcifications of the coronary arteries Upper Abdomen: Severe fatty liver Hardware: None. Bones: Age-appropriate appearance of the thoracic spine. CT/CTA Chest W/WO Contrast IMPRESSION: Negative for pulmonary embolus. Fatty liver. Negative for acute cardiopulmonary disease. Reading Location: [id number]
[2025-01-26 09:18] VITALS: BP 135/75; PULSE 79; RESP 12; O2SAT 99
[2025-01-26 10:00] VITALS: BP 129/76; PULSE 77; RESP 14; O2SAT 99
[2025-01-26 10:13] LABS: Troponin T High Sensitivity < 6 ng/L (<=14)
[2025-01-26 10:16] LABS: Anion Gap 13 (5-15); BUN 17 mg/dL (4-19); BUN/Creat Ratio 23.2 RATIO (10-20); Calcium,Total 10.2 mg/dL (7.6-11.0); Carbon Dioxide 25.8 mmol/L (21.0-32.0); Chloride 100 mmol/L (98-108); Estimated Creatinine Clearance 98.47 ml/min (50-250); Glucose 150 mg/dL (70-99); Potassium 4.3 mmol/L (3.3-5.1)
[2025-01-26 10:19] LABS: Pro- Brain NATRIURETIC PEPTIDE < 36 pg/mL (<=450)
[2025-01-26 10:48] VITALS: O2SAT 97
[2025-01-26 11:00] VITALS: BP 133/81; PULSE 74; RESP 14; O2SAT 96
[2025-01-26 11:51] LABS: Troponin T High Sens 2 HR < 6 ng/L (<=14)
[2025-01-26 12:15] VITALS: BP 130/74; PULSE 79; RESP 16; TEMP 36.6; O2SAT 100
== END 2025-01-26 12:20 | disposition home or self-care (01) ==
PROVIDERS: Emergency Provider Emergency Medicine; PCP Nurse Practitioner Family; Visit Provider Emergency Medicine
DX: R07.9 Chest pain, unspecified (principal); K21.9 Gastro-esophageal reflux disease without esophagitis; R06.02 Shortness of breath; Z79.899 Other long term (current) drug therapy; F17.290 Nicotine dependence, other tobacco product, uncomplicated
CPT/HCPCS: 71046; 71275; 80048; 83880; 84484; 85025; 85379; 93005; 96360; 96361; 99284; Q9967; A4216